=== PATIENT | female | born 1950 | race Hispanic/Latino ===

== ENCOUNTER 2017-12-03 14:51 | Emergency (ER) | payer OTHER ==
[2017-12-03 15:26] LABS: Absolute Lymphocytes (CBC) 2.9 K/uL (0.7-4.9); Absolute Monocytes 0.6 K/uL (0.1-1.3); Absolute Neutrophil 6.6 K/uL (1.8-8.0); Basophils % 0.7 % (0-1.3); Hematocrit 38.9 % (36.0-45.0); Lymphocytes % 28.1 % (15.3-44.8); MCH 28.6 pg (27.0-35.0); MPV 10.7 fL (7.6-11.3); Monocytes % 6.2 % (3.3-12.3); RBC Red Blood Cell Count 4.52 M/uL (3.86-4.86)
[2017-12-03 15:36] LABS: Protime INR 0.98
--- NOTE | 2017-12-03 15:37 | RAD REPORT ---
EXAM DESCRIPTION: Alec Single View12/03/2017 3:32 pm CLINICAL HISTORY: Chest pain COMPARISON: February 2017 FINDINGS: The lungs appear clear of acute infiltrate. The heart is normal size IMPRESSION: No acute abnormalities displayed
[2017-12-03 15:53] LABS: Albumin 4.2 g/dL (3.4-5.0); Bilirubin Direct 0.1 mg/dL (0-0.2); Bilirubin Total 0.5 mg/dL (0.2-1.0); Magnesium 1.5 mg/dL (1.8-2.4); Potassium 3.9 mmol/L (3.5-5.1); Protein, Total 7.9 g/dL (6.4-8.2); Thyroid Stimulating Hormone 1.56 uIU/mL (0.36-3.74)
[2017-12-03] MEDS ORDERED: FENTANYL CITR 100 MCG/2 ML ONE (16:12)
[2017-12-03] MEDS ORDERED: Magnesium Sulfate 1gm IVPB 1 GM/50 ML BAG IV ONE (16:15)
[2017-12-03] MEDS ORDERED: NA CHLORIDE 0.9% 250 ML ONE (16:18)
--- NOTE | 2017-12-03 16:18 | RAD REPORT ---
EXAM DESCRIPTION: CT - Chest For Pe Angio - 12/03/2017 4:08 pm CLINICAL HISTORY: Chest pain. dimerpos ;SOB;Chest pain COMPARISON: THORAX W CONTRAST dated 01/26/2015; Chest Single View dated 12/03/2017; CTANGIO CHEST dated 04/14/2013 TECHNIQUE: CT angiogram of the pulmonary arteries was performed with MIP. All CT scans are performed using dose optimization technique as appropriate and may include automated exposure control or mA/KV adjustment according to patient size. FINDINGS: No evidence of pulmonary thromboembolism. Significant atherosclerotic narrowing of the origin of the left subclavian artery noted. No acute aortic finding demonstrated. The lungs are clear. No significant pericardial or pleural fluid. No concerning bony finding. The right lobe of the thyroid appears mildly prominent with a calcified n odule seen. IMPRESSION: No evidence of pulmonary thromboembolism. No acute lung findings.
--- NOTE | 2017-12-03 17:12 | ER ---
Nurse's Notes [facility] Name: Yadira Land Age: 67 yrs Sex: Female : 1950 Arrival Date: 12/03/2017 Time: 14:54 Bed 26 Private MD: Marco Alicia E Diagnosis: Chest pain, unspecified Presentation: 12/03 15:01 Presenting complaint: Patient states: chest pain radiating to the left arm which mg2 started yesterday but increased in intensity today. denies Shortness of breath but she is having dry cough since yesterday night. Transition of care: patient was not received from another setting of care. Onset of symptoms was December 02, 2017. Risk Assessment: Do you want to hurt yourself or someone else? Patient reports no desire to harm self or others. Initial Sepsis Screen: Does the patient meet any 2 criteria? No. Patient's initial sepsis screen is negative. Does the patient have a suspected source of infection? No. Patient's initial sepsis screen is negative. Care prior to arrival: None. 15:01 Method Of Arrival: Wheelchair mg2 15:01 Acuity: KARSTEN 2 mg2 Historical: - Allergies: 15:05 No Known Allergies; mg2 - Home Meds: 15:05 metformin 1,000 mg Oral tab 1 tab 2 times per day [Active]; mg2 - PMHx: 15:05 Diabetes - NIDDM; mg2 - Immunization history:: Flu vaccine is up to date. - Social history:: Smoking status: Patient/guardian denies using tobacco, Patient/guardian denies using alcohol, street drugs, IV drugs. - Ebola Screening: : No symptoms or risks identified at this time. Screenin:09 Abuse screen: Denies threats or abuse. Denies injuries from another. Nutritional mg2 screening: No deficits noted. Tuberculosis screening: No symptoms or risk factors identified. Fall Risk IV access (20 points). Assessment: 15:07 General: Appears uncomfortable, Behavior is calm, cooperative. Pain: Complains of pain mg2 in chest Pain radiates to left arm Pain currently is 7 out of 10 on a pain scale. Quality of pain is described as aching, Pain began gradually, 1 day ago. Is intermittent, Alleviated by rest. Neuro: Level of Consciousness is awake, alert, obeys commands, Oriented to person, place, time, situation. Cardiovascular: Capillary refill < 3 seconds Patient's skin is warm and dry. Chest pain is described as Pain is 7 out of 10 on a pain scale. Respiratory: Reports cough that is non-productive, dry, Airway is patent Respiratory effort is even, unlabored, Respiratory pattern is regular, symmetrical. GI: No signs and/or symptoms were reported involving the gastrointestinal system. : No signs and/or symptoms were reported regarding the genitourinary system. EENT: No signs and/or symptoms were reported regarding the EENT system. Derm: Skin is intact, Skin is pink, warm \T\ dry. normal. Musculoskeletal: No signs and/or symptoms reported regarding the musculoskeletal system. 15:38 General: Dr. Loza notified of critical lab value. DDimer 833. ss Vital Signs: 15:06 BP 173 / 81; Pulse 115; Resp 18; Temp 98.5; Pulse Ox 99% ; Weight 65.32 kg; Height 5 mg2 ft. 4 in. (162.56 cm); Pain 7/10; 16:26 BP 165 / 78; Pulse 105; Resp 18; Pulse Ox 98% ; Pain 5/10; mg2 15:06 Body Mass Index 24.72 (65.32 kg, 162.56 cm) mg2 ED Course: 14:54 Patient arrived in ED. mr 14:54 Marco Alicia MD is Private Physician. mr 15:00 Inserted saline lock: 20 gauge in right antecubital area, using aseptic technique. kr2 Blood collected. 15:01 Wander Morejon, RN is Primary Nurse. mg2 15:04 Triage completed. mg2 15:06 Lucas Loza MD is Attending Physician. gs 15:07 Arm band placed on. mg2 15:16 EKG done, by body technician. reviewed by Lucas Loza MD. sm3 15:31 X-ray completed. Portable x-ray completed in exam room. Patient tolerated procedure jb2 well. 15:33 XRAY Chest (1 view) In Process Unspecified. EDMS 15:49 Radiology exam delayed due to lab results not completed at this time. (BUN/Creatinine). vm2 16:00 Patient has correct armband on for positive identification. 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 Pulse mg2 ox on. NIBP on. 16:08 CT Chest For PE Angio In Process Unspecified. EDMS 17:46 No provider procedures requiring assistance completed. IV discontinued, intact, mg2 bleeding controlled, No redness/swelling at site. Pressure dressing applied. Patient maintains SpO2 saturation greater than 95% on room air. Administered Medications: 16:25 Drug: Magnesium Sulfate 1 grams Route: IVPB; Infused Over: 1 hrs; Site: right mg2 antecubital; 16:25 Drug: fentaNYL (PF) 25 mcg Route: IVP; Site: right antecubital; mg2 17:45 Follow up: Response: No adverse reaction; Pain is decreased mg2 Outcome: 17:12 Discharge ordered by . 17:46 Discharged to home ambulatory, with family. mg2 17:46 Condition: good 17:46 Discharge instructions given to patient, family, Instructed on discharge instructions, follow up and referral plans. medication usage, Demonstrated understanding of instructions, follow-up care, medications, Prescriptions given X 1. 17:47 Patient left the ED. mg2 Signatures: Dispatcher [employer] EDMS RebolledoTraci mr BurtRobert jb2 Amie Arthur RN RN ss Guerline Burkett2 Lucas Loza MD MD Odilia Burr RN RN kr2 Wander Morejon RN RN mg2 Abigail Pino sm3 Corrections: (The following items were deleted from the chart) 15:10 15:06 BP 173 / 81; Resp 18bpm; Temp 98.5F; 65.32 kg; Height 5 ft. 4 in.; BMI: 24.7; mg2 Pain 7/10; mg2
--- NOTE | 2017-12-03 17:12 | EDPHYS ---
Physician Documentation [facility] Name: Yadira Land Age: 67 yrs Sex: Female : 1950 Arrival Date: 12/03/2017 Time: 14:54 Bed 26 Private MD: Marco Alicia E ED Physician Lucas Loza HPI: 12/03 18:27 This 67 yrs old Female presents to ER via Wheelchair with complaints of Chest gs Pain. 18:27 The patient or guardian reports chest pain that is located primarily in the anterior gs chest wall. Onset: yesterday. The pain does not radiate. Associated signs and symptoms: Pertinent positives: shortness of breath. The chest pain is described as sharp. Duration: The patient or guardian reports multiple episodes, that are intermittent, that wax and wane, with no pattern. Modifying factors: the symptoms are aggravated by deep breath. Severity of pain: At its worst the pain was moderate in the emergency department the pain has improved mildly. The patient has experienced similar episodes in the past, a few times. Historical: - Allergies: 15:05 No Known Allergies; mg2 - Home Meds: 15:05 metformin 1,000 mg Oral tab 1 tab 2 times per day [Active]; mg2 - PMHx: 15:05 Diabetes - NIDDM; mg2 - Immunization history:: Flu vaccine is up to date. - Social history:: Smoking status: Patient/guardian denies using tobacco, Patient/guardian denies using alcohol, street drugs, IV drugs. - Ebola Screening: : No symptoms or risks identified at this time. ROS: 18:27 All other systems are negative. gs Exam: 18:27 Head/Face: Normocephalic, atraumatic. Eyes: Pupils equal round and reactive to light, gs extra-ocular motions intact. Lids and lashes normal. Conjunctiva and sclera are non-icteric and not injected. Cornea within normal limits. Periorbital areas with no swelling, redness, or edema. ENT: Nares patent. No nasal discharge, no septal abnormalities noted. Tympanic membranes are normal and external auditory canals are clear. Oropharynx with no redness, swelling, or masses, exudates, or evidence of obstruction, uvula midline. Mucous membranes moist. Neck: Trachea midline, no thyromegaly or masses palpated, and no cervical lymphadenopathy. Supple, full range of motion without nuchal rigidity, or vertebral point tenderness. No Meningismus. 18:27 Cardiovascular: Regular rate and rhythm with a normal S1 and S2. No gallops, murmurs, or rubs. Normal PMI, no JVD. No pulse deficits. Respiratory: Lungs have equal breath sounds bilaterally, clear to auscultation and percussion. No rales, rhonchi or wheezes noted. No increased work of breathing, no retractions or nasal flaring. Abdomen/GI: Soft, non-tender, with normal bowel sounds. No distension or tympany. No guarding or rebound. No evidence of tenderness throughout. Back: No spinal tenderness. No costovertebral tenderness. Full range of motion. Skin: Warm, dry with normal turgor. Normal color with no rashes, no lesions, and no evidence of cellulitis. MS/ Extremity: Pulses equal, no cyanosis. Neurovascular intact. Full, normal range of motion. Neuro: Awake and alert, GCS 15, oriented to person, place, time, and situation. Cranial nerves II-XII grossly intact. Motor strength 5/5 in all extremities. Sensory grossly intact. Cerebellar exam normal. Normal gait. 18:27 Constitutional: The patient appears alert, awake. 18:27 Chest/axilla: Palpation: tenderness, that is moderate, of the left lateral anterior chest, that partially reproduces the patient's complaints. 18:27 ECG was reviewed by the Attending Physician. Vital Signs: 15:06 BP 173 / 81; Pulse 115; Resp 18; Temp 98.5; Pulse Ox 99% ; Weight 65.32 kg; Height 5 mg2 ft. 4 in. (162.56 cm); Pain 7/10; 16:26 BP 165 / 78; Pulse 105; Resp 18; Pulse Ox 98% ; Pain 5/10; mg2 15:06 Body Mass Index 24.72 (65.32 kg, 162.56 cm) mg2 MDM: 15:13 Patient medically screened. 18:27 Differential diagnosis: abnormal EKG, acute myocardial infarction, pneumothorax, gs thoracic aortic disection. Data reviewed: vital signs, nurses notes. Response to treatment: the patient's symptoms have markedly improved after treatment, the patient's symptoms have resolved after treatment, the patient's pain is gone, and as a result, I will discharge patient. 12/03 15:14 Order name: Basic Metabolic Panel; Complete Time: 15:53 gs 12/03 15:14 Order name: CBC with Diff; Complete Time: 15:53 12/03 15:14 Order name: LFT's; Complete Time: 15:53 12/03 15:14 Order name: Magnesium; Complete Time: 15:53 gs 12/03 15:14 Order name: NT PRO-BNP; Complete Time: 15:53 12/03 15:14 Order name: PT-INR; Complete Time: 15:53 12/03 15:14 Order name: Troponin (emerg Dept Use Only); Complete Time: 15:53 gs 12/03 15:14 Order name: XRAY Chest (1 view); Complete Time: 15:53 12/03 15:14 Order name: EKG; Complete Time: 15:14 12/03 15:14 Order name: TSH; Complete Time: 15:53 gs 12/03 15:14 Order name: D-Dimer; Complete Time: 15:53 12/03 15:39 Order name: CT Chest For PE Angio; Complete Time: 16:26 12/03 15:14 Order name: Cardiac monitoring; Complete Time: 15:17 12/03 15:14 Order name: EKG - Nurse/Tech; Complete Time: 15:17 12/03 15:14 Order name: IV Saline Lock; Complete Time: 15:17 12/03 15:14 Order name: Labs collected and sent; Complete Time: 15:17 12/03 15:14 Order name: O2 Per Protocol; Complete Time: 15:17 12/03 15:14 Order name: O2 Sat Monitoring; Complete Time: 15:17 gs EC:27 Rate is 119 beats/min. Rhythm is regular. MA interval is normal. QRS interval is gs normal. T waves are Flattened. Clinical impression: NSR w/ Non-specific ST/T Changes. Interpreted by me. Administered Medications: 16:25 Drug: Magnesium Sulfate 1 grams Route: IVPB; Infused Over: 1 hrs; Site: right mg2 antecubital; 16:25 Drug: fentaNYL (PF) 25 mcg Route: IVP; Site: right antecubital; mg2 17:45 Follow up: Response: No adverse reaction; Pain is decreased mg2 Disposition: 12/03/17 17:12 Discharged to Home. Impression: Chest pain, unspecified. - Condition is Stable. - Discharge Instructions: Nonspecific Chest Pain. - Prescriptions for Ativan 0.5 mg Oral Tablet - take 1 tablet by ORAL route every 12 hours As needed; 10 tablet. - Medication Reconciliation Form, Thank You Letter, Antibiotic Education, Prescription Opioid Use form. - Follow up: Private Physician; When: 2 - 3 days; Reason: Re-evaluation by your physician. Signatures: Dispatcher [employer] [facility] Lucas Loza MD MD Wander Morejon RN RN mg2 Corrections: (The following items were deleted from the chart) 17:47 17:12 12/03/2017 17:12 Discharged to Home. Impression: Chest pain, unspecified. mg2 Condition is Stable. Forms are Medication Reconciliation Form, Thank You Letter, Antibiotic Education, Prescription Opioid Use. Follow up: Private Physician; When: 2 - 3 days; Reason: Re-evaluation by your physician. gs
[2017-12-03 17:51] VITALS: TEMP 98.5
[2017-12-03 17:52] VITALS: BP 165/78; O2SAT 98
--- NOTE | 2017-12-03 21:34 | EKG ---
Test Date: 2017-12-03 Test Time: 15:01:39 Topper Press Operator Automatic: PERRY MEASUREMENT RESULTS: Intervals: Rate: 119 MD: 140 QRSD: 76 QT: 324 QTc: 455 [place]: P: 57 MD: 140 QRS: 43 T: 71 INTERPRETIVE STATEMENTS: Sinus tachycardia Nonspecific ST abnormality Abnormal ECG Compared to ECG 03/26/2017 14:27:23 ST (T wave) deviation now present Sinus rhythm no longer present Electronically Signed On 12-03-17 21:33:48 CDT by Chad Thompson
== END 2017-12-03 17:47 | disposition home or self-care (01) ==
LOC: ER 14:51
DX: R07.9 Chest pain, unspecified (principal); E11.9 Type 2 diabetes mellitus without complications
CPT/HCPCS: 36415; 71045; 71275; 80048; 80076; 83735; 83880; 84443; 84484; 85025; 85379; 85610; 93005; J3010; J3475; Q9967; 96374; 96375; 99285

== ENCOUNTER 2018-02-19 09:38 | Emergency (ER) | payer OTHER ==
--- NOTE | 2018-02-19 10:18 | RAD REPORT ---
EXAM DESCRIPTION: RAD - Hip Left 2 View - 02/19/2018 10:07 am CLINICAL HISTORY: Left hip pain status post fall FINDINGS: No fracture or dislocation is seen. Bones are osteoporotic If the patient continues have symptoms to suggest an occult fracture MRI would be recommended
--- NOTE | 2018-02-19 10:19 | RAD REPORT ---
EXAM DESCRIPTION: RAD - Knee Left 3 View - 02/19/2018 10:07 am CLINICAL HISTORY: Left knee pain status post fall FINDINGS: No fracture or dislocation is seen. Left knee prosthesis is in good position without evidence of loosening. The bones are osteoporotic
--- NOTE | 2018-02-19 10:34 | ER ---
Nurse's Notes [facility] Name: Yadira Land Age: 67 yrs Sex: Female : 1950 Arrival Date: 02/19/2018 Time: 09:39 Bed 19 Private MD: Diagnosis: Contusion of left knee;Pain in left hip Presentation: 02/19 09:39 Presenting complaint: EMS states: pt was outside slipped on puddle and fell down landed tw2 on both knees, c/o LEFT knee pain which is swollen, she did have knee surgery 3 years ago on the left knee and recently has been having problems so she does have an ortho appt tomorrow, vs stable, Hx: DM, on metformin took it this morning, 171 mg/dL blood sugar. Transition of care: patient was not received from another setting of care. Onset of symptoms was February 19, 2018. Risk Assessment: Do you want to hurt yourself or someone else? Patient reports no desire to harm self or others. Initial Sepsis Screen: Does the patient meet any 2 criteria? No. Patient's initial sepsis screen is negative. Does the patient have a suspected source of infection? No. Patient's initial sepsis screen is negative. Care prior to arrival: None. 09:39 Method Of Arrival: EMS: [facility] tw2 09:42 Acuity: KARSTEN 3 tw2 Historical: - Allergies: 09:44 No Known Allergies; tw2 - Home Meds: 09:44 metformin 1,000 mg Oral tab 1 tab 2 times per day [Active]; tw2 - PMHx: 09:44 Diabetes - NIDDM; tw2 - PSHx: 09:44 LEFT knee surgery; tw2 - Immunization history:: Adult Immunizations. - Social history:: Smoking status: . - Ebola Screening: : Patient denies travel to an Ebola-affected area in the 21 days before illness onset. Screenin:43 Abuse screen: Denies threats or abuse. Nutritional screening: No deficits noted. tw2 Tuberculosis screening: No symptoms or risk factors identified. Fall Risk None identified. Assessment: 10:10 General: Appears in no apparent distress. uncomfortable, Behavior is calm, cooperative, aj1 appropriate for age. Pain: Complains of pain in left knee. Neuro: Level of Consciousness is awake, alert, obeys commands. Cardiovascular: Patient's skin is warm and dry. Respiratory: Airway is patent Respiratory effort is even, unlabored, Respiratory pattern is regular, symmetrical. GI: No signs and/or symptoms were reported involving the gastrointestinal system. : No signs and/or symptoms were reported regarding the genitourinary system. EENT: No signs and/or symptoms were reported regarding the EENT system. Derm: Skin is pink, warm \T\ dry. normal. Musculoskeletal: Range of motion: limited in left knee Swelling present in left knee. 10:35 Reassessment: discharge pending getting a walker from material per orders from P. aj1 BRENDAN Null. 11:10 Reassessment: Patient appears in no apparent distress at this time. No changes from aj1 previously documented assessment. Patient and/or family updated on plan of care and expected duration. Pain level reassessed. Patient is alert, oriented x 3, equal unlabored respirations, skin warm/dry/pink. Vital Signs: 09:42 BP 119 / 86; Pulse 87; Resp 17; Pulse Ox 97% on R/A; Pain 8/10; tw2 10:30 BP 153 / 89; Pulse 79; Resp 18; Pulse Ox 97% on R/A; aj1 11:30 BP 157 / 66; Pulse 75; Resp 18; Pulse Ox 97% on R/A; aj1 ED Course: 09:39 Patient arrived in ED. tw2 09:40 Osorio Null NP is PHCP. pm1 09:40 Ramin Easton MD is Attending Physician. pm1 09:42 Triage completed. tw2 09:43 Arm band placed on. tw2 09:43 Bed in low position. Call light in reach. Side rails up X2. Pulse ox on. NIBP on. tw2 09:54 Report given to MAIKEL Hodge. tw2 10:01 X-ray completed. Portable x-ray completed in exam room. Patient tolerated procedure sw well. 10:02 Knee Left 3 View In Process Unspecified. EDMS 10:02 Hip Left 2 View In Process Unspecified. EDMS 10:25 Cathryn Edwards RN is Primary Nurse. aj1 10:33 Dariel Oconnor MD is Referral Physician. pm1 10:35 No provider procedures requiring assistance completed. Patient did not have IV access aj1 during this emergency room visit. Scout wrap to left knee. Administered Medications: 10:34 Drug: [place] 5 mg-325 mg 1 tabs Route: PO; aj1 11:41 Follow up: Response: No adverse reaction aj1 Outcome: 10:33 Discharge ordered by . pm1 11:40 Discharged to home with walker aj1 11:40 Condition: good 11:40 Discharge instructions given to patient, Instructed on discharge instructions, follow up and referral plans. no drinking with medication, no driving heavy equipment, medication usage, Demonstrated understanding of instructions, follow-up care, medications, Prescriptions given X 1. 11:41 Patient left the ED. aj1 Signatures: Dispatcher [employer] EDMS Cathryn Edwards RN RN aj1 Ramonita Lee Patrick, NP ENVIRONMENTAL PLANNING ENGINEER pm1 Lulú Rojas RN RN tw2 Corrections: (The following items were deleted from the chart) 09:42 09:39 Acuity: KARSTEN 4 tw2 tw2
--- NOTE | 2018-02-19 10:34 | EDPHYS ---
Physician Documentation [facility] Name: Yadira Land Age: 67 yrs Sex: Female : 1950 Arrival Date: 02/19/2018 Time: 09:39 Bed 19 Private MD: ED Physician Ramin Easton HPI: 02/19 09:40 This 67 yrs old Female presents to ER via EMS with complaints of Left Knee pm1 Pain. 09:40 The patient presents with pain, that is acute, swelling. The complaints affect the left pm1 knee. Context: The problem was sustained at home, resulted from the patient falling, Problem is a result from a previous injury: Patient with prior left knee replacement about 3 years ago. Onset: The symptoms/episode began/occurred just prior to arrival. Modifying factors: The symptoms are alleviated by nothing. the symptoms are aggravated by weight bearing. Associated signs and symptoms: Pertinent negatives calf tenderness, numbness, tingling. Treatment prior to arrival includes: no previous treatment. Patient taking out the garbage and stepped in a puddle of water with mud. Slipped and landed on both her knee. Right knee without any pain, but left knee is swollen and painful. No head injury, headache, neck pain, or LOC. Historical: - Allergies: 09:44 No Known Allergies; tw2 - Home Meds: 09:44 metformin 1,000 mg Oral tab 1 tab 2 times per day [Active]; tw2 - PMHx: 09:44 Diabetes - NIDDM; tw2 - PSHx: 09:44 LEFT knee surgery; tw2 - Immunization history:: Adult Immunizations. - Social history:: Smoking status: . - Ebola Screening: : Patient denies travel to an Ebola-affected area in the 21 days before illness onset. ROS: 09:40 Constitutional: Negative for fever, chills, and weight loss, Eyes: Negative for injury, pm1 pain, redness, and discharge, ENT: Negative for injury, pain, and discharge, Neck: Negative for injury, pain, and swelling, Cardiovascular: Negative for chest pain, palpitations, and edema, Respiratory: Negative for shortness of breath, cough, wheezing, and pleuritic chest pain, Abdomen/GI: Negative for abdominal pain, nausea, vomiting, diarrhea, and constipation, Back: Negative for injury and pain, : Negative for injury, bleeding, discharge, and swelling. 09:40 Skin: Negative for injury, rash, and discoloration, Neuro: Negative for headache, weakness, numbness, tingling, and seizure. 09:40 MS/extremity: Positive for pain, of the left hip and left knee. Exam: 09:40 Constitutional: This is a well developed, well nourished patient who is awake, alert, pm1 and in no acute distress. Head/Face: Normocephalic, atraumatic. Eyes: Pupils equal round and reactive to light, extra-ocular motions intact. Lids and lashes normal. Conjunctiva and sclera are non-icteric and not injected. Cornea within normal limits. Periorbital areas with no swelling, redness, or edema. ENT: Nares patent. No nasal discharge, no septal abnormalities noted. Tympanic membranes are normal and external auditory canals are clear. Oropharynx with no redness, swelling, or masses, exudates, or evidence of obstruction, uvula midline. Mucous membranes moist. Neck: Trachea midline, no thyromegaly or masses palpated, and no cervical lymphadenopathy. Supple, full range of motion without nuchal rigidity, or vertebral point tenderness. No Meningismus. Chest/axilla: Normal chest wall appearance and motion. Nontender with no deformity. No lesions are appreciated. Cardiovascular: Regular rate and rhythm with a normal S1 and S2. No gallops, murmurs, or rubs. No pulse deficits. Respiratory: Lungs have equal breath sounds bilaterally, clear to auscultation and percussion. No rales, rhonchi or wheezes noted. No increased work of breathing, no retractions or nasal flaring. Abdomen/GI: Soft, non-tender, with normal bowel sounds. No distension or tympany. No guarding or rebound. No evidence of tenderness throughout. Back: No spinal tenderness. No costovertebral tenderness. Full range of motion. Skin: Warm, dry with normal turgor. Normal color with no rashes, no lesions, and no evidence of cellulitis. 09:40 Musculoskeletal/extremity: Extremities: grossly normal except: noted in the left knee: swelling, tenderness, noted in the left hip: tenderness, no evidence of deformity, Circulation is intact in all extremities. Sensation intact. 09:40 Neuro: Orientation: is normal, Mentation: is normal, Motor: moves all fours, Sensation: is normal, no obvious gross deficits. Vital Signs: 09:42 BP 119 / 86; Pulse 87; Resp 17; Pulse Ox 97% on R/A; Pain 8/10; tw2 10:30 BP 153 / 89; Pulse 79; Resp 18; Pulse Ox 97% on R/A; aj1 11:30 BP 157 / 66; Pulse 75; Resp 18; Pulse Ox 97% on R/A; aj1 MDM: 09:45 Patient medically screened. pm1 10:30 ED course: Due to fall risk injury with crutches and knee immobilizer due to age, will pm1 send patient home with walker and scout wrap. 10:31 Data reviewed: vital signs. Data interpreted: Pulse oximetry: on room air is 97 %. pm1 Interpretation: normal. Counseling: I had a detailed discussion with the patient and/or guardian regarding: the historical points, exam findings, and any diagnostic results supporting the discharge/admit diagnosis, radiology results, the need for outpatient follow up, a orthopedic surgeon, to return to the emergency department if symptoms worsen or persist or if there are any questions or concerns that arise at home. 02/19 10:01 Order name: Knee Left 3 View; Complete Time: 10:21 EDMS 02/19 10:01 Order name: Hip Left 2 View; Complete Time: 10:21 EDMS 02/19 10:24 Order name: Ice pack; Complete Time: 10:34 pm1 02/19 10:24 Order name: Scout wrap-joint; Complete Time: 10:34 pm1 Administered Medications: 10:34 Drug: Alma 5 mg-325 mg 1 tabs Route: PO; aj1 11:41 Follow up: Response: No adverse reaction aj1 Disposition: 17:08 Co-signature as Attending Physician, Ramin Easton MD. rn Disposition: 02/19/18 10:33 Discharged to Home. Impression: Contusion of left knee, Pain in left hip. - Condition is Stable. - Discharge Instructions: Contusion, Knee Pain, Hip Pain. - Prescriptions for Tylenol- Codeine #3 300-30 mg Oral Tablet - take 1 tablet by ORAL route every 6 hours As needed; 15 tablet. - Medication Reconciliation Form, Thank You Letter, Prescription Opioid Use form. - Follow up: Emergency Department; When: As needed; Reason: Worsening of condition. Follow up: Dariel Oconnor MD; When: 2 - 3 days; Reason: Recheck today's complaints, Continuance of care, Re-evaluation by your physician. - Problem is new. - Symptoms have improved. Signatures: Dispatcher [employer] EDMT Cathryn Edwards, RN RN aj1 Ramin Easton MD MD rn Marinas, Patrick, APPLICATION DEVELOPMENT SPECIALIST APPLICATION DEVELOPMENT SPECIALIST pm1 Lulú Rojas RN RN tw2 Corrections: (The following items were deleted from the chart) 10:01 09:41 Knee Right 3 View+RAD.RAD.BRZ ordered. EDMT EDMS 10:01 09:41 Hip Right 2 View+RAD.RAD.BRZ ordered. [facility] EDMT 10:34 10:33 02/19/2018 10:33 Discharged to Home. Impression: Contusion of left knee. pm1 Condition is Stable. Forms are Medication Reconciliation Form, Thank You Letter, Antibiotic Education, Prescription Opioid Use. Follow up: Emergency Department; When: As needed; Reason: Worsening of condition. Follow up: Dariel Oconnor; When: 2 - 3 days; Reason: Recheck today's complaints, Continuance of care, Re-evaluation by your physician. Problem is new. Symptoms have improved. pm1 11:41 10:34 02/19/2018 10:33 Discharged to Home. Impression: Contusion of left knee; Pain in aj1 left hip. Condition is Stable. Discharge Instructions: Contusion, Knee Pain, Hip Pain. Forms are Medication Reconciliation Form, Thank You Letter, Antibiotic Education, Prescription Opioid Use. Follow up: Emergency Department; When: As needed; Reason: Worsening of condition. Follow up: Dariel Oconnor; When: 2 - 3 days; Reason: Recheck today's complaints, Continuance of care, Re-evaluation by your physician. Problem is new. Symptoms have improved. pm1
[2018-02-19] MEDS ORDERED: HYDROCODONE/APAP 5/325 MG TAB ONE (10:36)
[2018-02-19 11:50] VITALS: O2SAT 97
[2018-02-19 11:52] VITALS: BP 157/66
== END 2018-02-19 11:41 | disposition home or self-care (01) ==
LOC: ER 09:38
DX: S80.02XA Contusion of left knee, initial encounter (principal); M25.552 Pain in left hip; W01.0XXA Fall on same level from slipping, tripping and stumbling without subsequent striking against object, initial encounter; Y93.89 Activity, other specified; Y92.009 Unspecified place in unspecified non-institutional (private) residence as the place of occurrence of the external cause; E11.9 Type 2 diabetes mellitus without complications
CPT/HCPCS: 99284

== ENCOUNTER 2018-10-11 13:46 | Emergency (ER) | payer OTHER ==
--- OUTSIDE RECORDS SUMMARY | 2018-10-11 13:48 | XMS REPORT ---
:1950 [facility] Address [address] [place] [address] Dr. Sharma [address] [place] [id number] Care Team Providers Name Role Phone Unavailable Unavailable Unavailable Problems This patient has no known problems. Allergies, Adverse Reactions, Alerts This patient has no known allergies or adverse reactions. Medications This patient has no known medications.
--- NOTE | 2018-10-11 14:25 | EDPHYS ---
Physician Documentation [facility] Name: Yadira Land Age: 68 yrs Sex: Female : 1950 Arrival Date: 10/11/2018 Time: 13:49 Bed 12 Private MD: ED Physician Lucas Loza HPI: 10/11 14:20 This 68 yrs old Female presents to ER via Ambulatory with complaints of Ear jr8 Pain. 14:20 The patient presents with hearing loss, partial, pain, mild, tinnitus. The complaints jr8 affect the left ear. Onset: The symptoms/episode began/occurred gradually, 3 day(s) ago. Modifying factors: The symptoms are alleviated by nothing, the symptoms are aggravated by nothing. Associated signs and symptoms: The patient has no apparent associated signs or symptoms. Severity of symptoms: At their worst the symptoms were mild in the emergency department the symptoms are unchanged. The patient has not experienced similar symptoms in the past. The patient has not recently seen a physician. Historical: - Allergies: 14:11 No Known Allergies; sg - PMHx: 14:11 None; sg - PSHx: 14:11 LEFT knee surgery; sg - Immunization history:: Adult Immunizations up to date. - Social history:: Smoking status: Patient/guardian denies using tobacco. - Ebola Screening: : No symptoms or risks identified at this time. ROS: 14:20 Eyes: Negative for injury, pain, redness, and discharge, Neck: Negative for injury, jr8 pain, and swelling, Cardiovascular: Negative for chest pain, palpitations, and edema, Respiratory: Negative for shortness of breath, cough, wheezing, and pleuritic chest pain, Abdomen/GI: Negative for abdominal pain, nausea, vomiting, diarrhea, and constipation, Back: Negative for injury and pain, MS/Extremity: Negative for injury and deformity, Skin: Negative for injury, rash, and discoloration, Neuro: Negative for headache, weakness, numbness, tingling, and seizure. 14:20 ENT: Positive for ear pain, tinnitus. Exam: 14:20 Eyes: Pupils equal round and reactive to light, extra-ocular motions intact. Lids and jr8 lashes normal. Conjunctiva and sclera are non-icteric and not injected. Cornea within normal limits. Periorbital areas with no swelling, redness, or edema. ENT: Nares patent. No nasal discharge, no septal abnormalities noted. Tympanic membranes are normal and external auditory canals are clear. Non affected ear closed and sound was tested on impaired ear revealing that patient can hear but not as well as the unaffected ear. Oropharynx with no redness, swelling, or masses, exudates, or evidence of obstruction, uvula midline. Mucous membranes moist. Neck: Trachea midline, no thyromegaly or masses palpated, and no cervical lymphadenopathy. Supple, full range of motion without nuchal rigidity, or vertebral point tenderness. No Meningismus. Cardiovascular: Regular rate and rhythm with a normal S1 and S2. No gallops, murmurs, or rubs. Normal PMI, no JVD. No pulse deficits. Respiratory: Lungs have equal breath sounds bilaterally, clear to auscultation and percussion. No rales, rhonchi or wheezes noted. No increased work of breathing, no retractions or nasal flaring. Abdomen/GI: Soft, non-tender, with normal bowel sounds. No distension or tympany. No guarding or rebound. No evidence of tenderness throughout. Back: No spinal tenderness. No costovertebral tenderness. Full range of motion. Skin: Warm, dry with normal turgor. Normal color with no rashes, no lesions, and no evidence of cellulitis. MS/ Extremity: Pulses equal, no cyanosis. Neurovascular intact. Full, normal range of motion. Neuro: Awake and alert, GCS 15, oriented to person, place, time, and situation. Cranial nerves II-XII grossly intact. Motor strength 5/5 in all extremities. Sensory grossly intact. Cerebellar exam normal. Normal gait. Vital Signs: 13:59 BP 101 / 69; Pulse 100; Resp 19; Temp 97.2; Pulse Ox 100% on R/A; Pain 6/10; sg MDM: 14:03 Patient medically screened. jr8 14:20 Data reviewed: vital signs, nurses notes, and as a result, I will discharge patient. jr8 Data interpreted: Pulse oximetry: on room air is 100 %. Interpretation: normal. Counseling: I had a detailed discussion with the patient and/or guardian regarding: the historical points, exam findings, and any diagnostic results supporting the discharge/admit diagnosis, the need for outpatient follow up, an ENT specialist, to return to the emergency department if symptoms worsen or persist or if there are any questions or concerns that arise at home. Administered Medications: No medications were administered Disposition: 15:39 Co-signature as Attending Physician, Lucas Loza MD. Disposition: 10/11/18 14:24 Discharged to Home. Impression: Otalgia, left ear, Conductive and sensorineural hearing loss. - Condition is Stable. - Discharge Instructions: Earache, Adult. - Prescriptions for Medrol (Doyle) 4 mg Oral Tablets, Dose Pack - take 1 tablet by ORAL route as directed - follow package instructions; 1 packet. - Medication Reconciliation Form, Thank You Letter, Antibiotic Education, Prescription Opioid Use form. - Follow up: Keara Aggarwal MD; When: 2 - 3 days; Reason: Recheck today's complaints, Continuance of care, Re-evaluation by your physician. - Problem is new. - Symptoms have improved. Signatures: Shashank Mahajan RN RN sg Mejia Brewer PA PA jr8 Sonali Steven RN RN Lucas Loza MD MD Corrections: (The following items were deleted from the chart) 14:27 14:24 10/11/2018 14:24 Discharged to Home. Impression: Otalgia, left ear; Conductive hb and sensorineural hearing loss. Condition is Stable. Forms are Medication Reconciliation Form, Thank You Letter, Antibiotic Education, Prescription Opioid Use. Follow up: Keara Aggarwal; When: 2 - 3 days; Reason: Recheck today's complaints, Continuance of care, Re-evaluation by your physician. Problem is new. Symptoms have improved. jr8
--- NOTE | 2018-10-11 14:25 | ER ---
Nurse's Notes [facility] Name: Yadira Land Age: 68 yrs Sex: Female : 1950 Arrival Date: 10/11/2018 Time: 13:49 Bed 12 Private MD: Diagnosis: Otalgia, left ear;Conductive and sensorineural hearing loss Presentation: 10/11 13:56 Presenting complaint: Patient states: Left sided ear pain, hard to hear now, reports sg having been seen by the PCP and given a flush to help clear the wax but now there is pain in the jaw. Transition of care: patient was not received from another setting of care. Onset of symptoms was October 11, 2018. Risk Assessment: Do you want to hurt yourself or someone else? Patient reports no desire to harm self or others. Initial Sepsis Screen: Does the patient meet any 2 criteria? No. Patient's initial sepsis screen is negative. Initial Sepsis Screen: Does the patient have a suspected source of infection? No. Patient's initial sepsis screen is negative. Care prior to arrival: None. 13:56 Method Of Arrival: Ambulatory sg 13:56 Acuity: KARSTEN 4 sg Historical: - Allergies: 14:11 No Known Allergies; sg - PMHx: 14:11 None; sg - PSHx: 14:11 LEFT knee surgery; sg - Immunization history:: Adult Immunizations up to date. - Social history:: Smoking status: Patient/guardian denies using tobacco. - Ebola Screening: : No symptoms or risks identified at this time. Screenin:09 Abuse screen: Denies threats or abuse. Denies injuries from another. Nutritional sg screening: No deficits noted. Tuberculosis screening: No symptoms or risk factors identified. Never had TB. Fall Risk None identified. Assessment: 14:07 General: Appears in no apparent distress. comfortable, well groomed, well developed, sg well nourished, Behavior is calm, cooperative, appropriate for age. Pain: Complains of pain in left ear Quality of pain is described as aching. Neuro: Level of Consciousness is awake, alert, obeys commands, Oriented to person, place, time, situation, Imaging Services Director are equal bilaterally Moves all extremities. Speech is normal, Facial symmetry appears normal. Cardiovascular: Capillary refill is brisk in bilateral fingers Patient's skin is warm and dry. Chest pain is denied. Respiratory: Airway is patent Respiratory effort is even, unlabored, Respiratory pattern is regular, symmetrical. GI: Abdomen is round non-distended, Bowel sounds present X 4 quads. : No signs and/or symptoms were reported regarding the genitourinary system. EENT: Ear canal clear on left ear. Derm: Skin is normal. Musculoskeletal: No signs and/or symptoms reported regarding the musculoskeletal system. Vital Signs: 13:59 BP 101 / 69; Pulse 100; Resp 19; Temp 97.2; Pulse Ox 100% on R/A; Pain 6/10; sg ED Course: 13:49 Patient arrived in ED. tw3 13:59 Triage completed. sg 13:59 Arm band placed on. sg 14:03 Mejia Brewer PA is PHCP. jr8 14:03 Lucas Loza MD is Attending Physician. jr8 14:07 No provider procedures requiring assistance completed. sg 14:15 Patient has correct armband on for positive identification. hb 14:23 Keara Aggarwal MD is Referral Physician. jr8 14:26 Patient did not have IV access during this emergency room visit. hb Administered Medications: No medications were administered Outcome: 14:24 Discharge ordered by . 8 14:26 Condition: stable hb 14:26 Discharged to home ambulatory. hb 14:26 Discharge instructions given to patient, Instructed on discharge instructions, follow up and referral plans. medication usage, Demonstrated understanding of instructions, follow-up care, medications, Prescriptions given X 1. 14:27 Patient left the ED. hb Signatures: Shashank Mahajan RN MAIKEL Mejia Brweer PA PA [facility] Sonali Steven RN RN Jody García tw3
[2018-10-11 15:57] VITALS: BP 101/69; TEMP 97.2; O2SAT 100
== END 2018-10-11 14:27 | disposition home or self-care (01) ==
LOC: ER 13:46
DX: H90.8 Mixed conductive and sensorineural hearing loss, unspecified (principal)
CPT/HCPCS: 99282

== ENCOUNTER 2019-02-20 17:38 | Emergency (ER) | payer OTHER ==
[2019-02-20] MEDS ORDERED: TETANUS & DIPHTHERIA TOX,ADULT 0.5 ML VIAL ONE (17:56)
--- NOTE | 2019-02-20 17:59 | ER ---
Nurse's Notes [facility] Name: Yadira Land Age: 68 yrs Sex: Female : 1950 Arrival Date: 02/20/2019 Time: 17:42 Bed 24 Private MD: Diagnosis: Abrasion of left hand-skin tear Presentation: 02/20 17:43 Presenting complaint: Patient states: "A mirror broke and I was picking up the pieces aj1 and I cut my hand on it" Skin tear to left hand, not currently bleeding. Transition of care: patient was not received from another setting of care. Complicating Factors: There are no complicating factors for this patient. Onset of symptoms was February 20, 2019 at 17:15. Risk Assessment: Do you want to hurt yourself or someone else? Patient reports no desire to harm self or others. Initial Sepsis Screen: Does the patient meet any 2 criteria? No. Patient's initial sepsis screen is negative. Does the patient have a suspected source of infection? No. Patient's initial sepsis screen is negative. Care prior to arrival: None. 17:43 Method Of Arrival: Ambulatory [facility] 17:43 Acuity: KARSTEN 4 aj1 Triage Assessment: 17:46 General: Appears in no apparent distress. comfortable, Behavior is calm, cooperative, aj1 appropriate for age. Pain: Complains of pain in left hand Pain currently is 8 out of 10 on a pain scale. Historical: - Allergies: 17:46 No Known Allergies; aj1 - Home Meds: 17:46 metformin 1,000 mg Oral tab 1 tab 2 times per day [Active]; aj1 - PMHx: 17:46 Diabetes - NIDDM; aj1 - PSHx: 17:46 Appendectomy; Cholecystectomy; aj1 - Immunization history:: Last tetanus immunization: unknown. - Social history:: Smoking status: Patient/guardian denies using tobacco. - Ebola Screening: : Patient denies travel to an Ebola-affected area in the 21 days before illness onset. Screenin:20 Abuse screen: Denies threats or abuse. Denies injuries from another. Nutritional mg2 screening: No deficits noted. Tuberculosis screening: No symptoms or risk factors identified. Fall Risk None identified. Assessment: 18:18 General: Appears in no apparent distress. comfortable, Behavior is calm, cooperative. mg2 Pain: Complains of pain in left hand Pain does not radiate. Pain currently is 2 out of 10 on a pain scale. Quality of pain is described as aching, Pain began suddenly, Is intermittent. Neuro: Level of Consciousness is awake, alert, obeys commands, Oriented to person, place, time, situation. Cardiovascular: Capillary refill < 3 seconds Patient's skin is warm and dry. Respiratory: Airway is patent Respiratory effort is even, unlabored, Respiratory pattern is regular, symmetrical. GI: No signs and/or symptoms were reported involving the gastrointestinal system. : No signs and/or symptoms were reported regarding the genitourinary system. EENT: No signs and/or symptoms were reported regarding the EENT system. Derm: Wound noted left hand. Musculoskeletal: Circulation, motion, and sensation intact. Capillary refill < 3 seconds. Injury Description: Abrasion sustained to left hand is. 18:22 Injury Description: Laceration is clean, not bleeding. mg2 Vital Signs: 17:46 BP 145 / 74; Pulse 92; Resp 18; Temp 97.4; Pulse Ox 97% on R/A; Weight 68.04 kg (R); aj1 Height 5 ft. 4 in. (162.56 cm) (R); 17:46 Body Mass Index 25.75 (68.04 kg, 162.56 cm) aj1 ED Course: 17:42 Patient arrived in ED. mr 17:43 Marian Zabala, DELROY[facility]C [facility]. kb 17:43 Ramin Easton MD is Attending Physician. kb 17:45 Triage completed. aj1 17:46 Arm band placed on. aj1 17:53 Wander Morejon, MAIKEL is Primary Nurse. mg2 18:20 No provider procedures requiring assistance completed. Patient did not have IV access mg2 during this emergency room visit. Wound care: to abrasion, located on left hand was cleaned with Betadine, dressed with Neosporin, 4X4s, Patient tolerated well. 18:21 Patient has correct armband on for positive identification. mg2 Administered Medications: 18:18 Drug: Tetanus-Diphtheria Toxoid Adult 0.5 ml {Stitch Cleaner: [employer]. Exp: mg2 10/07/2020. Lot #: [id number]. } Route: IM; Site: right deltoid; 18:18 Follow up: Response: No adverse reaction; Medication administered at discharge. mg2 Outcome: 17:58 Discharge ordered by . rosa 18:21 Discharged to home ambulatory, with family. mg2 18:21 Condition: good 18:21 Discharge instructions given to patient, family, Instructed on discharge instructions, follow up and referral plans. wound care, Demonstrated understanding of instructions, follow-up care, wound care. 18:22 Patient left the ED. mg2 Signatures: Marian Zabala, MANAGER LOSS PREVENTION-C MANAGER LOSS PREVENTION-Cathryn Zayas RN RN aj1 RebolledoMag Wander Morejon RN RN mg2 Corrections: (The following items were deleted from the chart) 17:47 17:43 Presenting complaint: Patient states: "A mirror broke and I was picking up the aj1 pieces and I cut my hand on it" Laceration to left hand, not currently bleeding aj1 18:20 18:18 Injury Description: Laceration sustained to left hand is clean, not bleeding, was mg2 sustained 1-2 hours ago. is bleeding no active bleeding noted. mg2
--- NOTE | 2019-02-20 18:00 | EDPHYS ---
Physician Documentation [facility] Name: Yadira Land Age: 68 yrs Sex: Female : 1950 Arrival Date: 02/20/2019 Time: 17:42 Bed 24 Private MD: ED Physician Ramin Easton HPI: 02/20 17:57 This 68 yrs old Female presents to ER via Ambulatory with complaints of kb Laceration To Hand. 17:57 The patient has a laceration related to: picking up broken mirror occurred at home, and kb there are no complicating factors. The injury was accidental. The laceration(s) is(are) located on the medial aspect of left hand. Onset: The symptoms/episode began/occurred just prior to arrival. Associated signs and symptoms: The patient has no apparent associated signs or symptoms. The patient has not experienced similar symptoms in the past. The patient has not recently seen a physician. Historical: - Allergies: 17:46 No Known Allergies; aj1 - Home Meds: 17:46 metformin 1,000 mg Oral tab 1 tab 2 times per day [Active]; aj1 - PMHx: 17:46 Diabetes - NIDDM; aj1 - PSHx: 17:46 Appendectomy; Cholecystectomy; aj1 - Immunization history:: Last tetanus immunization: unknown. - Social history:: Smoking status: Patient/guardian denies using tobacco. - Ebola Screening: : Patient denies travel to an Ebola-affected area in the 21 days before illness onset. ROS: 17:56 Constitutional: Negative for fever, chills, and weight loss, ENT: Negative for injury, kb pain, and discharge, Neck: Negative for injury, pain, and swelling, Cardiovascular: Negative for chest pain, palpitations, and edema, Respiratory: Negative for shortness of breath, cough, wheezing, and pleuritic chest pain, Abdomen/GI: Negative for abdominal pain, nausea, vomiting, diarrhea, and constipation, MS/Extremity: Negative for injury and deformity, Neuro: Negative for headache, weakness, numbness, tingling, and seizure. 17:56 Skin: Positive for laceration(s), of the medial aspect of left hand. Exam: 17:56 Constitutional: This is a well developed, well nourished patient who is awake, alert, kb and in no acute distress. Head/Face: Normocephalic, atraumatic. Neck: Trachea midline, no thyromegaly or masses palpated, and no cervical lymphadenopathy. Supple, full range of motion without nuchal rigidity, or vertebral point tenderness. No Meningismus. Chest/axilla: Normal chest wall appearance and motion. Nontender with no deformity. No lesions are appreciated. Cardiovascular: Regular rate and rhythm with a normal S1 and S2. No gallops, murmurs, or rubs. Normal PMI, no JVD. No pulse deficits. Respiratory: Lungs have equal breath sounds bilaterally, clear to auscultation and percussion. No rales, rhonchi or wheezes noted. No increased work of breathing, no retractions or nasal flaring. Abdomen/GI: Soft, non-tender, with normal bowel sounds. No distension or tympany. No guarding or rebound. No evidence of tenderness throughout. MS/ Extremity: Pulses equal, no cyanosis. Neurovascular intact. Full, normal range of motion. Neuro: Awake and alert, GCS 15, oriented to person, place, time, and situation. Cranial nerves II-XII grossly intact. Motor strength 5/5 in all extremities. Sensory grossly intact. Cerebellar exam normal. Normal gait. 17:56 Skin: injury, skin tear to medial aspect of left hand. Vital Signs: 17:46 BP 145 / 74; Pulse 92; Resp 18; Temp 97.4; Pulse Ox 97% on R/A; Weight 68.04 kg (R); aj1 Height 5 ft. 4 in. (162.56 cm) (R); 17:46 Body Mass Index 25.75 (68.04 kg, 162.56 cm) aj1 MDM: 17:47 Patient medically screened. kb 17:48 Data reviewed: vital signs, nurses notes. Data interpreted: Pulse oximetry: on room air kb is 97 %. Interpretation: normal. Counseling: I had a detailed discussion with the patient and/or guardian regarding: the historical points, exam findings, and any diagnostic results supporting the discharge/admit diagnosis, the need for outpatient follow up, a family practitioner, to return to the emergency department if symptoms worsen or persist or if there are any questions or concerns that arise at home. 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 Exp: mg2 10/07/2020. Lot #: [id number]. } Route: IM; Site: right deltoid; 18:18 Follow up: Response: No adverse reaction; Medication administered at discharge. mg2 Disposition: 18:34 Co-signature as Attending Physician, Ramin Easton MD. rn Disposition: 02/20/19 17:58 Discharged to Home. Impression: Abrasion of left hand - skin tear. - Condition is Stable. - Discharge Instructions: Skin Tear Care, [id number]. - Medication Reconciliation Form, Thank You Letter, Antibiotic Education, Prescription Opioid Use form. - Follow up: Emergency Department; When: As needed; Reason: Worsening of condition. Follow up: Private Physician; When: 2 - 3 days; Reason: Recheck today's complaints, Continuance of care, Re-evaluation by your physician. Signatures: Marian Zabala, REVENUE CYCLE MANAGER-C REVENUE CYCLE MANAGER-Ckb Cathryn Edwards RN RN aj1 Ramin Easton MD MD rn Gardose, Michele, RN RN mg2 Corrections: (The following items were deleted from the chart) 18:22 17:58 02/20/2019 17:58 Discharged to Home. Impression: Abrasion of left hand - skin mg2 tear. Condition is Stable. Forms are Medication Reconciliation Form, Thank You Letter, Antibiotic Education, Prescription Opioid Use. Follow up: Emergency Department; When: As needed; Reason: Worsening of condition. Follow up: Private Physician; When: 2 - 3 days; Reason: Recheck today's complaints, Continuance of care, Re-evaluation by your physician. kb
[2019-02-20 18:56] VITALS: BP 145/74; TEMP 97.4; O2SAT 97
== END 2019-02-20 18:22 | disposition home or self-care (01) ==
LOC: ER 17:38
DX: S60.512A Abrasion of left hand, initial encounter (principal); W25.XXXA Contact with sharp glass, initial encounter; Y93.89 Activity, other specified; Y92.9 Unspecified place or not applicable; E11.9 Type 2 diabetes mellitus without complications; Z23 Encounter for immunization
CPT/HCPCS: 90471; 90714; 99283

== ENCOUNTER 2019-12-24 21:03 | Emergency (ER) | payer OTHER ==
--- OUTSIDE RECORDS SUMMARY | 2019-12-24 21:05 | XMS REPORT | Continuity of Care Document ---
:1950 Author Organization [facility] t Address [address] [place] [address] Care Team Providers Name Role Phone Osmel Tristan MD Attending Clinician Problems Condition Condition Condition Status Onset Resolution Last Treating Co mments Source Name Details Category Date Date Treatment Clinician Date Type 2 Type 2 Problem Active [facility] diabetes Diabetes 7- Family mellitus Mellitus 00:00: Practi c 00 e Diabetic Diabetic Problem Active Holder ge peripheral Peripheral 12-10 Fa [facility] neuropathy Neuropathy 00:00: Pr actic 00 e Major Major Problem Active [facility] depressive Depressive 7- Fa [facility] disorder Disorder 00:00: Practi c 00 e Essential Essential Problem Active Glenn charo hypertensi Hypertensi 7-17 Fa angel on on 00:00: Practic 00 e Bilateral Bilateral Problem Active Glenn charo knee pain Knee Pain 7-17 Fami ly 00:00: Practic 00 e Trigger Trigger Problem Active [facility] finger, finger, [facility] - left ring left ring Juan rico finger finger l [facility] Burn Burn Problem [facility] Right hand Right hand Problem Active [facility] pain pain [facility] Carpal Carpal Problem Active [facility] tunnel tunnel [facility] - syndrome syndrome Memori a on both on both l sides sides Outpati ent Clinics Uncontroll Uncontroll Problem Active [facility] ed type 2 ed type 2 Luke [facility] - diabetes diabetes Memori a mellitus mellitus l with with Outpati hyperglyce hyperglyce en t [facility] Clinics Essential Essential Problem Active [facility] hypertensi hypertensi Safia kes - on on Memoria l [facility] Clinics Trigger Trigger Problem Active [facility] finger, finger, [facility] - unspecifie unspecifie Me bailee segura finger, d finger, l unspecifie unspecifie Ou tpati d d ent laterality laterality Cl inics Allergic Allergic Problem Active [facility] rhinitis rhinitis [facility] Depression Depression Problem Active [facility] with with [facility] anxiety anxiety [facility] Chronic Chronic Problem Active [facility] pain pain [facility] - syndrome syndrome Memori a l [facility] Seasonal Seasonal Problem Active [facility] allergies allergies [facility] - Memoria l [facility]ics Vulvovagin Vulvovagin Problem Active [facility] itis itis [facility] - [facility]ics Lipoma of Lipoma of Problem Active [facility] torso torso [facility] Screening Screening Problem Active [facility] for colon for colon Luke s - cancer cancer Memoria l [facility] Screening Screening Problem Active [facility] for breast for breast Safia kes - cancer cancer Memoria l [facility] Primary Primary Problem Active [facility] osteoarthr osteoarthr Safia kes - itis of itis of Memoria left hand left hand l [facility]ics Osteopenia Osteopenia Problem Active [facility] of hand, of hand, [facility] - unspecifie unspecifie Me morimikey d d l laterality laterality Ou tpati ent Clinics Diabetes Diabetes Problem Active [facility] mellitus, mellitus, Luke s - type 2 type 2 Memoria l [facility] Hospital Hospital Problem Active [facility] discharge discharge Luke s - follow-up follow-up Juan rico l [facility] Clin[facility] Acute pain Acute pain Problem Active [facility] of right of right [facility] - knee knee Memoria l [facility]ics Effusion Effusion Problem Active [facility] of knee of knee [facility] - joint joint Memoria right right l Outpati ent Clinics Primary Primary Problem Active [facility] osteoarthr osteoarthr Safia kes - itis, itis, Memoria right hand right hand l Outpati ent Clinics Primary Primary Problem Active [facility] osteoarthr osteoarthr Safia kes - itis itis [facility] involving involving l multiple multiple Outpat i joints joints ent Clinics Cough Cough Problem Active [facility] Clin[facility] Common Common Problem Active [facility] cold virus cold virus [facility] [employer] Exposure Exposure Problem Active [facility] to the flu to the flu [facility] [employer] Body aches Body aches Problem Active C HI [facility] [employer] Allergies, Adverse Reactions, Alerts This patient has no known allergies or adverse reactions. Social History Smoking Status Start Date Stop Date Source [facility] Medications Ordered Filled Start Stop Current Ordering Indication Dosage Frequency Signature Comments Components Source Medication Medication Date Date Medication? Clinician (SIG) Name Name Avis Albarran Yes Alicia 1 tablet [facility] I 10-19 Millender [facility] - 00:00: Memoria 00 [facility] [employer] Meloxicam Meloxicam 2019- Yes Alicia 1-2 C [facility] 10-19 06-25 Millender tablets as Maricel es - 00:00: 00:00 needed for Memori a 00 :00 pain; take l with food [facility] or milk ent Clinics citalopram citalopram No 1 Q1D citalopram [facility] 10 mg 10 mg 10 mg Family tablet Take tablet Take tablet Practic 1 tablet 1 tablet Take 1 e every day every day tablet by oral by oral every day route. route. by oral route. gabapentin gabapentin No 1capsul BID gabapentin [facility] 300 mg 300 mg e(s) 300 mg Family capsule capsule capsule Practi c Take 1 Take 1 Take 1 e capsule capsule capsule twice a day twice a day twice a by oral by oral day by route. route. oral route. hydroxyzine hydroxyzine No 1 TID hydroxyzin [facility] HCl 25 mg HCl 25 mg e HCl 25 F amily tablet Take tablet Take mg tablet Practic 1 tablet 3 1 tablet 3 Take 1 e times a day times a day tablet 3 by oral by oral times a route as route as day by directed. directed. oral route as directed. lisinopril lisinopril No 1 Q1D lisinopril [facility] 20 mg 20 mg 20 mg Family tablet Take tablet Take tablet Practic 1 tablet 1 tablet Take 1 e every day every day tablet by oral by oral every day route. route. by oral route. meloxicam meloxicam No 1 Q1D meloxicam [facility] 7.5 mg 7.5 mg 7.5 mg Family tablet Take tablet Take tablet Practic 1 tablet 1 tablet Take 1 e every day every day tablet by oral by oral every day route. route. by oral route. metformin metformin No 1 BID metformin [facility] 1,000 mg 1,000 mg 1,000 mg Fam mara tablet Take tablet Take tablet Practic 1 tablet 1 tablet Take 1 e twice a day twice a day tablet by oral by oral twice a route. route. day by oral route. Celexa Celexa Yes Alicia [address] [facility] Millender [facility] Outpati ent Clinics Acetaminoph Acetaminoph Yes Alicia [address] [facility] en-Codeine en-Codeine Millender as needed [facility] - #3 #3 Memoria l Outpati ent Clinics Lisinopril Lisinopril Yes Alicia [address] [facility] Mill[facility] Clin[facility] Melatonin Melatonin Yes Alicia [address] [facility] Millender at bedtime Luke s - as needed Memoria with food l Outpati ent Clinics Gabapentin Gabapentin Yes Alicia [address] [facility] Millender [facility] Out[facility] ent Clinics Diclofenac Diclofenac Yes Alicia TAKE [address] [facility] Sodium Sodium Millender TABLET BY L ukes - MOUTH Memoria TWICE A l DAY WITH Outpati MEALS ent Clinics Metformin Metformin Yes Alicia [address] [facility] [facility] HCl HCl Millender with meals [facility] - Memoria l [facility] Farxiga 5 Farxiga 5 No 1 Q1D Farxiga 5 [place] mg tablet mg tablet mg tablet da Take 1 Take 1 Take 1 Medical tablet tablet tablet Group every day every day every day by oral by oral by oral route. route. route. fluticasone fluticasone No 1spray( BID fluticason [place] propionate propionate s) e da 50 50 propionate Medical mcg/actuati mcg/actuati 50 G roup on nasal on nasal mcg/actuat spray,suspe spray,suspe ion nasal nsion [place]eter nsion [place] spray,susp 1 spray 1 spray ension twice a day twice a day [place] 1 by by spray intranasal intranasal twice a route for route for day by 30 days. 30 days. intranasal route for 30 days. metformin metformin No 1 BID metformin [place] 1,000 mg 1,000 mg 1,000 mg da tablet Take tablet Take tablet Medical 1 tablet 1 tablet Take 1 Group twice a day twice a day tablet by oral by oral twice a route. route. day by oral route. Pipe Betancur Alicia [address] 10-19 Millender [facility] - 00:00 Memoria :00 l Outpati ent Clinics Vital Signs Vital Name Observation Time Observation Value Comments Source Height 2019-12-11 00:00:00 63 [in_i] [facility] BMI (Body Mass 2019-12-11 00:00:00 28.9 kg/m2 [facility] Family Index) Practice Body Weight 2019-12-11 00:00:00 163 [lb_av] [facility] BP Diastolic 2018-11-14 00:00:00 83 mm[Hg] [facility] Height 2018-11-14 00:00:00 64 [in_i] [facility] BMI (Body Mass 2018-11-14 00:00:00 25.5 kg/m2 [facility] front office help Medical Index) Group BP Systolic 2018-11-14 00:00:00 149 mm[Hg] [facility] Body Weight 2018-11-14 00:00:00 148.4 [lb_av] [facility] Procedures Procedure Date / Time Performed Performing Clinician Sour e TYMPANOMETRY 2018-11-14 00:00:00 [facility] Plan of Care Planned Activity Planned Date Details Comments Source Future Appointment 2020-02-12 10:00:00 Prerna whalen [facility] Jorge Alberto, [address]; [address], [place] [address] Instructions [facility] Instructions [facility] Encounters Start End Encounter Admission Attending Care Care Encounter Source Date/Time Date/Time Type Type Clinicians Facility Department ID 2019-12-23 2019-12-[address] [facility] [id number] 10:54:00 10:54: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 2019-12-10 2019-12-10 Office Azalea AZALEX [id number] 15:07:12 15:45:01 Visit [facility] [id number] Surgical [id number] Specialti [id number] 198 [place] 2019-12-03 2019-12-03 [facility] [id number] [facility] 14:42:00 14:42:00 t [facility] ent Clinics 2019-10-27 2019-10-27 [facility] [id number] 16:30:00 16:30:00 t [facility] - and Joint [facility] [employer] 2019-10-20 2019-10-20 [facility] [id number] 22:55:00 22:55:00 t [facility] [employer] [facility] 2019-10-20 2019-10-20 [facility] [id number] 09:40:00 09:40:00 [facility] ent Clinics 2018-11-14 2018-11-14 Declan [facility] [place] - [id number] [place] 00:00:00 00:00:00 MD Tonya: [facility] [address] [place] [address] Group [facility] - [address], Otolaryngol [facility] [address] , Ph. Results Test Description Test Time Test Comments Results Result Comments Source tympanogram 2018-11-14 10:54:48 Test Item Value Reference Range Interpretation Comme nts Right (test code = Right) Type C Peak is on Left Left (test code = Left) Type B Curve Flat [facility]
--- OUTSIDE RECORDS SUMMARY | 2019-12-24 21:05 | XMS REPORT | Summary of Care ---
:1950 Author Organization [facility] Address [address] [place] [id number] Care Team Providers Name Role Phone Osmel Tristan MD Unavailable Jamaica Gonzalez PAC Unavailable Tatiana Keith Primary Care Provider Reason for Visit Reason Comments Notification The patient was in the offic e on 09/22/19. She stated her pain [facility] Encounter Details Date Type Department Care Team Description 09/28/2019 Telephone [facility] Orthopaedic Travis Gonzalez S, Kailee otification ([facility] [place] PAC patient was in the [address] [facility], [facility] office on 09/22/19. She [address] [place] [address] [place], [place] medication has not been [phone] sent to the pharmacy) [phone] Allergies No Known Allergiesdocumented as of this encounter (statuses as of 09/29/2019) Medications Medication Sig Dispensed Refills Start Date End Date Status metFORMIN (GLUCOPHAGE) Take 1,000 mg by 0 Active 1,000 mg tablet mouth 2 (two) times daily with meals. GLIMEPIRIDE ORAL Take 2 mg by 0 Active mouth daily. insulin glargine (LANTUS inject 15 Units 0 Active U-100) 100 unit/mL under the skin injection at bedtime. LORazepam 0.5 mg tablet TAKE 1 TABLET BY 0 8 Active MOUTH EVERY 12 HOURS NEEDED FOR ANXIETY naproxen 500 mg tablet TAKE 1 TABLET 1 12/04/2017 Active WITH FOOD OR MILK NEEDED TWICE A DAY ORALLY 30 DAYS terbinafine HCl 250 mg Take 250 mg by 2 11/06/2017 Active tablet mouth daily. gabapentin 300 mg Take 1 capsule 30 capsule 0 06/05/2019 Active capsuleIndications: Burn by mouth 3 (three) times daily. methylPREDNISolone Take 21 tablets 1 Each 0 06/11/2019 Active (MEDROL, PURNIMA,) 4 mg by mouth tabletsIndications: SEE-INSTRUCTIONS Multiple joint . follow package complaints directions hydrOXYzine 25 mg Take 1 tablet by 40 tablet 1 06/26/2019 Active tabletIndications: Burn mouth every 6 (six) hours as needed for Itching. gabapentin 600 mg Take 1 tablet by 60 tablet 1 06/26/2019 Active tabletIndications: Burn mouth 3 (three) times daily. lisinopril 10 mg tablet Take 10 mg by 0 05/19/2019 Active mouth daily. citalopram 10 mg tablet Take 10 mg by 0 05/19/2019 Active mouth daily. dapagliflozin (FARXIGA) Farxiga 5 mg tablet 0 Active 5 mg tablet Take 1 tablet every day by oral route. Diclofenac Sodium Apply to 100 g 1 08/13/2019 A ctive (VOLTAREN) 1 % area(s) 4 (four) gelIndications: Multiple times daily. joint complaints gabapentin (NEURONTIN) Take 1 capsule 90 capsule 0 09/22/2019 Active 300 mg by mouth 3 0 capsuleIndications: (three) times Right hand pain daily for 30 days. documented as of this encounter (statuses as of 09/29/2019) Active Problems Problem Noted Date Febrile 04/13/2019 Burn 04/11/2019 Lumbar radiculopathy 12/12/2017 Total knee replacement status 12/12/2015 Left knee pain 08/04/2015 Left knee pain 06/16/2015 documented as of this encounter (statuses as of 09/29/2019) Social History Tobacco Use Types Packs/Day Years Used Date Former Smoker Cigarettes Smokeless Tobacco: Never Used Comments: Occasional Smoker Alcohol Use Drinks/Week oz/Week Comments Not Currently 0 Standard drinks or equivalent 0.0 Occasional Drinker Sex Assigned at Date Recorded Not on file Job Start Date Occupation Industry Not on file Not on file Not on file Travel History Travel Start Travel End No recent travel history available. COVID-19 Exposure Response Date Recorded In the last month, have you been in contact with No / Unsure 09/22/2019 10:01 AM CDT someone who was confirmed or suspected to have Coronavirus / COVID-19? documented as of this encounter Last Filed Vital Signs Not on filedocumented in this encounter Plan of Treatment Health Maintenance Due Date Last Done Comments HEPATITIS C (HCV) SCREEN 1950 DTaP,Tdap,and Td Vaccines (1 - Tdap) 1960 Breast Cancer Screening (MAMMOGRAM) 1989 COLONOSCOPY 1999 Zoster Recombinant Vaccine (SHINGRIX) (1 of 2) 1999 LUNG CANCER SCREEN: Recommended for age 55-80 with 30 + 05/03/20 04 pack year history Medicare Wellness Visit 2014 Osteoporosis Screening 2014 PNEUMOCOCCAL VACCINES 65+ (1 of 2 - PCV13) 2014 INFLUENZA VACCINE (Season Ended) 2020 documented as of this encounter Implants Implanted Type Area Station Cleaning Porter Device Shelf Model / Identifier Expiration Serial / Date Lot Bone Cement With Gentamicin CEMENT Left: Lainey [id number] / Implanted: Qty: 1 on 12/12/2015 by Osmel Teran MD at [facility] Knee 8 [id number] / [id number] Bone Cement With Gentamicin CEMENT Left: Lainey [id number] / Implanted: Qty: 1 on 12/12/2015 by Osmel Teran MD at [facility] Knee 8 [id number] / [id number] Ez Derm Perforated Porcine Sheet 7inx 18in ([id number]) B trav #[id number] - [id number] GRAFT Right: [facility] 01/22/2020 [id number] / Implanted: Qty: 1 on 04/15/2019 by Carl Arellano MD at [facility] Arm [id number] / [id number] Cr Tibial Bearing KNEE Left: Biomet 07/18/2020 1 [id number] / Implanted: Qty: 1 on 12/12/2015 by Osmel Teran MD at [facility] Knee 1 [id number] / [id number] Modular Tibial Locking Bar KNEE Left: Biomet [id number] / Implanted: Qty: 1 on 12/12/2015 by Osmel Teran MD at [facility] Knee 5 [id number] / [id number] Regenerex Primary Tibial Tray KNEE Left: Biomet 09/18/2025 [id number] / Implanted: Qty: 1 on 12/12/2015 by Osmel Teran MD at [facility] Knee 1 [id number] / [id number] Cr Femoral - Left KNEE Left: Biomet 02/18/2025 1 [id number] / Implanted: Qty: 1 on 12/12/2015 by Osmel Teran MD at [facility] Knee 3 [id number] / [id number] Series-A Standard Patella PATELLA Left: Biomet 08/2019 [id number] / Implanted: Qty: 1 on 12/12/2015 by Osmel Teran MD at [facility] Knee 2 [id number] / [id number] Modular Finned Stem Stem Left: Biomet 10/30/2025 [id number] / Implanted: Qty: 1 on 12/12/2015 by Osmel Teran MD at [facility] Knee 2 [id number] / [id number] documented as of this encounter Results Not on filedocumented in this encounter Insurance Payer Benefit Plan / Subscriber ID Effective Dates Phone Addre ss Type Group WELLCARE MINDA WELLCARE MINDA [id number] 2016-Presen Medicare Adv PLUS PLUS CHOICE t HMO/POS ROD GARCIA [id number] 2005-Presen Tric are t documented as of this encounter
--- OUTSIDE RECORDS SUMMARY | 2019-12-24 21:06 | XMS REPORT ---
:1950 Author Organization [employer] Care Team Providers Name Role Phone Alicia Zuniga Provider Role Unavailable Allergies No Known Allergies Problems Problem Type Condition Code Onset Dates Condition Statu s Problem Trigger finger, unspecified finger, M65.30 Active unspecified laterality Problem Allergic rhinitis J30.9 Active Problem Depression with anxiety F41.8 Acti ve Problem Chronic pain syndrome G89.4 Active Problem Seasonal allergies J30.2 Active Problem Vulvovaginitis N76.0 Active Problem Lipoma of torso D17.1 Active Problem Screening for colon cancer Z12.11 A ctive Problem Screening for breast cancer Z12.39 Active Problem Carpal tunnel syndrome on both G56.03 Active sides Problem Uncontrolled type 2 diabetes E11.65 Active mellitus with hyperglycemia Problem 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 Active Problem Osteopenia of hand, unspecified M85.849 Active laterality Problem Trigger finger, left ring finger M65.342 Active Problem Diabetes mellitus, type 2 E11.9 Ac tive Problem Hospital discharge follow-up Z09 Active Problem Essential hypertension I10 Activ e Problem Burn T30.0 Active Problem Right hand pain M79.641 Active Problem Acute pain of right knee M25.561 Act riley Problem Effusion of knee joint right M25.461 Active Problem Primary osteoarthritis, right hand M19.041 Active Problem Primary osteoarthritis involving M15.0 Active multiple joints Problem Cough R05 Active Problem Common cold virus J00 Active Problem Exposure to the flu Z20.828 Active Problem Body aches R52 Active Medications No Known Medications Results No Known Results Summary Purpose eClinicalWorks Submission
--- OUTSIDE RECORDS SUMMARY | 2019-12-24 21:06 | XMS REPORT ---
:1950 [facility] Care Team Providers Name Role Phone FedeAlicia kim Provider Role Unavailable Allergies, Adverse Reactions, Alerts Substance Reaction Event Type N.K.D.A. Info Not Available Non Drug Allergy Problems Problem Type Condition Code Onset Dates Condition Statu s Assessment Trigger finger, left ring finger M65.342 Active Assessment Burn T30.0 Active Assessment Right hand pain M79.641 Active Assessment Carpal tunnel syndrome on both G56.03 Active sides Assessment Uncontrolled type 2 diabetes E11.65 Active mellitus with hyperglycemia Assessment Essential hypertension I10 Activ e Problem Trigger finger, unspecified finger, M65.30 Active [...] pain of right knee M25.561 Act riley Assessment Depression with anxiety F41.8 Acti ve Problem Effusion of knee joint right M25.461 Active Problem Primary osteoarthritis, right hand M19.041 Active Problem Primary osteoarthritis involving M15.0 Active multiple joints Problem Cough R05 Active Problem Common cold virus J00 Active Problem Exposure to the flu Z20.828 Active Problem Body aches R52 Active Medications Medication Code Code Instructions Start End Status Dosage System Date Date Celexa [facility] 31003485582 10 MG Orally Active 1 table t Once a day Acetaminophen- [facility] 51299266105 300-30 MG Active 1 t ablet Codeine #3 Orally every 4 as nee ded hrs Lisinopril [facility] 85826558042 20 MG Orally Active 1 ta blet Once a day Melatonin ND 51199573277 5 MG Orally Active 1 tabl et Once a day at bedtime as needed with food Gabapentin [facility] 11181903999 800 MG Orally Active 1 t ablet Three times daily Diclofenac [facility] 28924118571 75 MG Oral Active TAKE 1 Sodium TABLET BY MOUTH TWICE A DAY WITH MEALS Celexa [facility] 21001103038 10 MG Orally Active 1 table t Once a day Metformin HCl [facility] 60227454767 1000 MG Orally Active 1 tablet Twice a day with meals Farxiga [facility] 61092239706 5mg By Mouth October 19, Inactive 1 Daill2019 Januvia [facility] 83612228337 50 MG Orally October 19, Active 1 table t Once a day for 2019 diabetes Meloxicam [facility] 14506567586 7.5 MG Orally October 19October Active 1-2 Once a day; 2019, tablets as stop any OTC 2019 needed for NSAIDS pain; take with food or milk Results Name Result Date Reference Range Unit Abnormali ty Flag HEMOGLOBIN A1C ----A1C 8.6% [id number] Summary Purpose eClinicalWorks Submission
--- OUTSIDE RECORDS SUMMARY | 2019-12-24 21:06 | XMS REPORT ---
[...] Acute pain of right knee M25.561 Act irley Problem Effusion of knee joint right M25.461 [...]
--- OUTSIDE RECORDS SUMMARY | 2019-12-24 21:06 | XMS REPORT ---
:1950 Author Organization eClinicalWorks Care Team Providers Name Role Phone Camden Chamorro Provider Role Unavailable Allergies No Known Allergies [...]
--- OUTSIDE RECORDS SUMMARY | 2019-12-24 21:07 | XMS REPORT | Encounter Summary ---
:1950 Author Care Team Providers Name Role Phone Dr. Christian Martinez Primary Care Provider [phone] Alicia Zuniga MD Primary Care Provider [phone] Reason for Visit TELE-AWV Annual Wellness Visit Female Instructions 1. Advance directive discussed w ith patient advance care planning: car e instructions 2. Depression screening learning about depression 3. Type 2 diabetes mellitus with peripheral angiopathy metformin 1,000 mg tablet 4. Bilateral knee pain meloxicam 7.5 mg tablet 5. Diabetic peripheral neuropath y gabapentin 300 mg capsule 6. Essential hypertension lisinopril 20 mg tablet 7. Major depressive disorder citalopram 10 mg tablet Discussion Note Completed a telephone audio visit o nly with patient. Patient report she has enough meds currently and does not need any refills. Patient encouraged to wash hands frequently for 20 seconds, practice soci al distancing by stay home and maintaini ng physical space in public. Patient encouraged to seek medical care if she starts having continues cough, fever and sob. Patient verbalized understanding. Plan of Care Patient Instructions It was good to speak with you chelly jessicateodoro today for your Medicare Annual Wellness Visit. You have been provided some information on healthy nutrition, including a diet rich in fruits and vegetables, minimizing simple carbohydrates, salt, and saturated fats. I want to encourage regular cardiovascular exercise such as walking at least 30 minutes daily, 5 times per week. Please remember to schedule any prevent riley health measures that we talked about today. You have also been provided education on fall prevention and community- based lifestyle interventions to help reduc e health risks and promote healthy livin g in your Annual Wellness folder. Screening Recommendations 1. Vaccines Pneumonia: Next one Influen za: Next Fall 2. Mammography Screening: Recommended today 3. Colorectal Cancer Screening: Colonoscopy (every 10 years) Recommended today 4. Annual Depression Scre ening 5. Annual Alcohol Screening 6. Karlee ual Fall Risk Screening 7. Annual Health Risk Assessment Reminders Provider Appointments Telemedicine 30 Prerna 02/12/2020 BRENDAN Azul 10:00AM Lab None recorded. Referral None recorded. Procedures None recorded. Surgeries None recorded. Imaging None recorded. Medications Name Start Date citalopram 10 mg tablet Take 1 tablet every day by oral route. gabapentin 300 mg capsule Take 1 capsule twice a day by oral route. hydroxyzine HCl 25 mg tablet Take 1 tablet 3 times a day by oral route as directed . lisinopril 20 mg tablet Take 1 tablet every day by oral route. meloxicam 7.5 mg tablet Take 1 tablet every day by oral route. metformin 1,000 mg tablet Take 1 tablet twice a day by oral route. Medications Administered None recorded. Vitals Height Weight BMI 5 ft 3 in 163 lbs 28.9 kg/m2 Results Lab Results None recorded. Allergies Code Code System Name Reaction Severity Status Onset NKDA Problems Name Status Onset Date Source Type 2 Diabetes Mellitus Active 12/11/2019 Diabetic Peripheral Neuropathy Active 12/11/2019 Major Depressive Disorder Active 12/11/2019 Essential Hypertension Active 12/11/2019 Bilateral Knee Pain Active 12/11/2019 Procedures None recorded. Vaccine List None recorded. Social History Tobacco Smoking Status Former Smoker (1 PPW) Past Encounters 12/11/2019 Advance Directive Discussed with Patient ; Depression Screening; Type 2 Diabetes Mellitus with Peripheral Angiopathy; Bilateral Knee Pain; Diabetic Peripheral Neuropathy; Essential Hypertension; Major Depressive Disorder Prerna Azul, BLADDER BLOWER: [address] [facility], [address], [place] [address], Ph. History of Present Illness Mini Cog Reported By: Patient Functional Ability: Personal/Social/ 3 word reca ll: Your nurse or doctor will ask you to remember 3 words. In 5 m inutes, they will ask you to repeat them. Patient recalled 3 w ords Opioid Use Assessment Reported By: Patient Opioid Use Assessment:: Current Use of Opioids : no use of opioids (no further questions required) Note: I confirm that I received verbal consent from the patient for the virtual visit.
This telemedicine encounter was performed using live {{video and audio|audio only because either patient did not have technology or unable to connect due to technical problems*}}.
<strong>(for a udio only)</strong> Total time spent with patient: {{50#| }} minutes.<div>[facility] ( RODOLFO: ____Nicoleata_Fozia Grady ) reviewed the [employer] Care consent form verbally with patient. Patient {{did*|did not}} have questions. Any and all patient questions were addressed. Patient consented to health care services provided via [employer]. Patient was directed to the [facility] website to review the form in greater detail. Patient was informed that a physical copy of theconsent would be mailed to his/her home. Patient confirmed that, upon receipt of the consent, that he/she will sign and return the form in the pre-addressed and stamped envelope.</div> Review of Systems Comprehensive General Adult ROS Reported By: Patient Constitutional: Constitutional: no fever, no night sweats, no significant weight gain, no significant weight loss, no exercise intolerance Eyes: Eyes: no dry eyes, no vision change, no irritation ENMT: Ears: no difficulty hearing, no ear pain. Nose: no frequent nosebleeds, no nose problems , no sinus problems. Mouth/Throat: no sore throat, no bleeding gums, no snoring, no dry mouth, no mouth ulcers, no oral abnorm alities, no teeth problems Cardiovascular: Cardiovascular: no chest saul n, no arm pain on exertion, no shortness of breath when wal jennifer, no shortness of breath when lying down, no palpitations, no known heart murmur, no lightheadedness Respiratory: Respiratory: no cough, no wh eezing, no shortness of breath, no coughing up blood, no sleep apnea Gastrointestinal: Gastrointestinal: no abdomin al pain, no nausea, no vomiting, no constipation, normal appe tite, no diarrhea, not vomiting blood, no dyspepsia, no GERD Genitourinary: Genitourinary: no incontinen ce, no difficulty urinating, no hematuria, no increased freq uency Musculoskeletal: Musculoskeletal: no muscle a ches, no muscle weakness, no back pain, no swelling in the ext remities, arthralgias/joint pain Integumentary: Skin: no abnormal mole, no j aundice, no rashes, no laceration Neurologic: Neurologic: no loss of consc iousness, no weakness, no numbness, no seizures, no di zziness, no migraines, no headaches, no tremor Psychiatric: Psych: no depression, no sle ep disturbances, feeling safe in a relationship, no alcohol abu se, no anxiety, no hallucinations, no suicidal thoughts Endocrine: Endocrine: no fatigue Hematologic/Lymphatic: Hematologic/Lymphatic no swo llen glands, no bruising, no excessive bleeding Allergic/Immunologic: Allergy/Immunologic: no runn y nose, no sinus pressure, no itching, no hives, no freque nt sneezing Physical Exam None recorded."
--- OUTSIDE RECORDS SUMMARY | 2019-12-24 21:07 | XMS REPORT | Summary of Care ---
:1950 Author Organization [facility] Address [address] [place] [address] Care Team Providers Name Role Phone Osmel Tristan MD Unavailable Jamaica Gonzalez PAC Unavailable Tatiana Keith Primary Care Provider Encounter Details Date Type Department Care Team Description 12/10/2019 Hospital En[facility] [address] [id number] [phone] Allergies No Known Allergiesdocumented as of this encounter (statuses as of 12/11/2019) Medications Medication Sig Dispensed Refills Start Date [...] (four) gelIndications: Multiple times daily. joint complaints documented as of this encounter (statuses as of 12/11/2019) Active Problems Problem Noted Date Febrile 04/13/2019 Burn 04/11/2019 Lumbar radiculopathy 12/12/2017 Total knee replacement status 12/12/2015 Left knee pain 08/04/2015 Left knee pain 06/16/2015 documented as of this encounter (statuses as of 12/11/2019) Social History Tobacco Use Types Packs/Day Years [...] been in contact with No / Unsure 12/10/2019 3:03 PM CDT someone who was confirmed or suspected to have Coronavirus / COVID-19? documented as of this encounter Last Filed Vital Signs Not on filedocumented in this encounter Plan of Treatment Name Type Priority Associated Diagnoses Date/Ti me XR KNEE <3 VW RIGHT IMAGING Routine Pain 12/10/19 20 3:19 PM CDT Name Type Priority Associated Diagnoses Order S chedule XR KNEE <3 VW RIGHT IMAGING Routine Pain 1 Occurr ences starting 12/10/2019 unti l 12/10/2019 Health Maintenance Due Date Last Done Comments HEPATITIS C (HCV) SCREEN 1950 DTaP,Tdap,and Td Vaccines (1 - Tdap) 1960 Breast Cancer Screening (MAMMOGRAM) 1989 COLONOSCOPY 1999 Zoster Recombinant Vaccine (SHINGRIX) (1 of 2) 1999 LUNG CANCER SCREEN: Recommended for age 55-80 with 30 2004 + pack year history Medicare Wellness Visit 2014 Osteoporosis Screening 2014 PNEUMOCOCCAL VACCINES 65+ (1 of 2 - PCV13) 2014 INFLUENZA VACCINE (#1) 2020 Depression Screening 07/16/2020 07/16/2019 documented as of this encounter Implants Implanted Type Area Cover Remover Device Shelf Model / Identifier Expiration Serial / Date Lot Bone Cement With Gentamicin CEMENT Left: Lainey [id number] / Implanted: Qty: 1 on 12/12/2015 by Osmel Teran MD at [facility] Knee 8 [id number] / [id number] Bone Cement With Gentamicin CEMENT Left: Lainey -[id number] / Implanted: Qty: 1 on 12/12/2015 by Osmel Teran MD at [facility] Knee 8 [id number] / [id number] Ez Derm Perforated Porcine Sheet 7inx 18in ([id number]) Mike ravi #[id number] - [id number] GRAFT Right: [facility] 01/22/2020 [id number] / Implanted: Qty: 1 on 04/15/2019 by Carl Arellano MD at [facility] Arm [id number] / [id number] Cr Tibial Bearing KNEE Left: [employer] 07/18/2020 1 [id number] / Implanted: Qty: 1 on 12/12/2015 by Osmel Teran MD at [facility] Knee 1 [id number] / [id number] Modular Tibial Locking Bar KNEE Left: [employer] [id number] / Implanted: Qty: 1 on 12/12/2015 by Osmel Teran MD at [facility] Knee 5 [id number] / [id number] Regenerex Primary Tibial Tray KNEE Left: [employer] 09/18/2025 [id number] / Implanted: Qty: 1 on 12/12/2015 by Osmel Teran MD at [facility] Knee 1 [id number] / [id number] Cr Femoral - Left KNEE Left: [employer] 02/18/2025 1 [id number] / Implanted: Qty: 1 on 12/12/2015 by Osmel Teran MD at [facility] Knee 3 [id number] / [id number] Series-A Standard Patella PATELLA Left: [employer] 08/2019 [id number] / Implanted: Qty: 1 on 12/12/2015 by Osmel Teran MD at [facility] Knee 2 [id number] / [id number] Modular Finned Stem Stem Left: [employer] 10/30/2025 [id number] / Implanted: Qty: 1 on 12/12/2015 by Osmel Teran MD at [facility] Knee 2 [id number] / [id number] documented as of this encounter Results Not on filedocumented in this encounter Visit Diagnoses Diagnosis Pain Generalized pain documented in this encounter Insurance Payer Benefit Plan / Subscriber ID Effective Dates Phone Addre ss Type Group WELLCARE MINDA WELLCARE MINDA [id number] 2016-Presen Medicare Adv PLUS PLUS CHOICE t HMO/POS ROD GARICA [id number] 2005-Presen Tric are t documented as of this encounter
--- OUTSIDE RECORDS SUMMARY | 2019-12-24 21:07 | XMS REPORT | Summary of Care ---
:1950 Author Organization [facility] - [facility] Address [address] [place] [address] Care Team Providers Name Role Phone Osmel Tristan MD Unavailable Jamaica Gonzalez PAC Unavailable Tatiana Keith Primary Care Provider Reason for Referral Radiology Services (Routine) Status Reason Specialty Diagnoses / Referred By Referred To Procedures Contact Contact New Request Diagnostic Diagnoses Pain Osmel Tristan Radiology Procedures XR KNEE <3 VW RIGHT MD Jean [address] [place] [address] [place] [address] Reason for Visit Reason Comments New Evaluation Rt knee pain (Routine) Status Reason Specialty Diagnoses / Referred By Referred To Procedures Contact Contact Closed ORT-ORTHOPAEDIC Diagnoses Results Osmel Tristan Craig SURGERY / Procedures CONSULT/REFERRAL ORTHOPAEDIC SURGERY FOLLOW-UP VISIT MD Jean Pena MD Orthopedic Surgery [address] [place] [phone] Phone: Fax: Encounter Details Date Type Department Care Team Description 12/10/2019 Office Visit [facility] Orthopaedic Tristan, Osmel L , Pain (Primary Dx) Surgery- Travis MELENDREZ [address], [address] [place] [address] [place] [address] [place], [place] [phone] Allergies No Known Allergiesdocumented as of this encounter (statuses as of 12/16/2019) Medications Medication Sig Dispensed Refills Start Date [...] as of this encounter (statuses as of 12/16/2019) Active Problems Problem Noted Date Febrile 04/13/2019 Burn 04/11/2019 Lumbar radiculopathy 12/12/2017 Total knee replacement status 12/12/2015 Left knee pain 08/04/2015 Left knee pain 06/16/2015 documented as of this encounter (statuses as of 12/16/2019) Social History Tobacco Use Types Packs/Day Years [...] of this encounter Last Filed Vital Signs Vital Sign Reading Time Taken Comments Blood Pressure 124/76 12/10/2019 3:09 PM CDT Pulse 94 12/10/2019 3:09 PM CDT Temperature - - Respiratory Rate - - Oxygen Saturation - - Inhaled Oxygen Concentration - - Weight 74 kg (163 lb 3.2 oz) 12/10/2019 3:09 PM CDT Height 160 cm (5' 3") 12/10/2019 3:09 PM CDT Body Mass Index 28.91 12/10/2019 3:09 PM CDT documented in this encounter Progress Notes Osmel Tristan MD - 12/10/2019 3:00 PM CDT Cc: Chief Complaint Patient presents with New Evaluation Rt knee pain X 6 months, no specific injury. No films. Came in wbat, no dme for assistance. Jodi Ballesteros 12/10/2019 3:18 PM Yadira Land is a 69 year old female. Knee Pain Incident onset: 6 months. The incident occurred at home. There was no injury mechanism. The pain is present in the right knee. The quality of the pain is described as aching, shooting and stabbing. Thepain is at a severity of 6/10. The pain is moderate. The pain has been worsening since onset. Associated symptoms include an inability to bear weight and a loss of motion. The symptoms are aggravated by movement and weight bearing. She has tried NSAIDs, non-weight bearing and rest for the symptoms. The treatment provided no relief. Allergies Yadira has No Known Allergies. Medications Outpatient Medications Prior to Visit Medication Sig Dispense Refill Diclofenac Sodium (VOLTAREN) 1 % gel Apply to area(s) 4 (four) times daily. 100 g 1 citalopram 10 mg tablet Take 10 mg by mouth daily. dapagliflozin (FARXIGA) 5 mg tablet Farxiga 5 mg tablet Take 1 tablet every day by oral route. lisinopril 10 mg tablet Take 10 mg by mouth daily. gabapentin 600 mg tablet Take 1 tablet by mouth 3 (three) times daily. 60 tablet 1 hydrOXYzine 25 mg tablet Take 1 tablet by mouth every 6 (six) hours as needed for Itching. 40 tablet 1 methylPREDNISolone (MEDROL, PURNIMA,) 4 mg tablets Take 21 tablets by mouth SEE- INSTRUCTIONS. followpackage directions 1 Each 0 gabapentin 300 mg capsule Take 1 capsule by mouth 3 (three) times daily. 30 capsule 0 LORazepam 0.5 mg tablet TAKE 1 TABLET BY MOUTH EVERY 12 HOURS NEEDED FOR ANXIETY 0 naproxen 500 mg tablet TAKE 1 TABLET WITH FOOD OR MILK NEEDED TWICE A DAY ORALLY 30 DAYS 1 terbinafine HCl 250 mg tablet Take 250 mg by mouth daily. 2 GLIMEPIRIDE ORAL Take 2 mg by mouth daily. insulin glargine (LANTUS U-100) 100 unit/mL injection inject 15 Units under the skin at bedtime. metFORMIN (GLUCOPHAGE) 1,000 mg tablet Take 1,000 mg by mouth 2 (two) times daily with meals. No facility-administered medications prior to visit. Histories Past Medical History: Diagnosis Date Allergic rhinitis Diabetes mellitus Left knee pain 08/04/2015 Past Surgical History: Procedure Laterality Date APPENDECTOMY SECTION 3X CHOLECYSTECTOMY MINOR BURN DEBRIDEMENT Right 04/15/2019 Surgeon: Carl Isbell MD; [facility] TOTAL KNEE ARTHROPLASTY Left 12/12/2015 Surgeon: Osmel Tristan MD; Location: [facility] OR Location XENOGRAFT APPLICATION Right 04/15/2019 Surgeon: Carl Isbell MD; Location: [facility] Social History Socioeconomic History Marital status: Spouse name: Not on file Number of children: Not on file Years of education: Not on file Highest education level: Not on file Occupational History Not on file Social Needs Financial resource strain: Not on file Food insecurity: Worry: Not on file Inability: Not on file Transportation needs: Medical: Not on file Non-medical: Not on file Tobacco Use Smoking status: Former Smoker Types: Cigarettes Smokeless tobacco: Never Used Tobacco comment: Occasional Smoker Substance and Sexual Activity Alcohol use: Not Currently Alcohol/week: 0.0 standard drinks Comment: Occasional Drinker Drug use: No Sexual activity: Never Lifestyle Physical activity: Days per week: Not on file Minutes per session: Not on file Stress: Not on file Relationships Social connections: Talks on phone: Not on file Gets together: Not on file Attends scientologist service: Not on file Active member of club or organization: Not on file Attends meetings of clubs or organizations: Not on file Relationship status: Not on file Intimate partner violence: Fear of current or ex partner: Not on file Emotionally abused: Not on file Physically abused: Not on file Forced sexual activity: Not on file Other Topics Concern Not on file Social History Narrative Merged History Encounter Family History Problem Relation Age of Onset Diabetes Mother Review of Systems Constitutional: Negative. HENT: Negative. Eyes: Negative. Respiratory: Negative. Breasts: Negative. Cardiovascular: Negative. Gastrointestinal: Negative. Genitourinary: Negative. Musculoskeletal: Positive for joint swelling. Skin: Negative. Neurological: Negative. Psychiatric/Behavioral: Negative. Endocrine: Endocrine negative Vital Signs BP 124/76 | Pulse 94 Physical Exam Musculoskeletal: Right knee: She exhibits decreased range of motion. Tenderness found. Medial joint line tenderness noted. General: Well-developed well-nourished oriented to person place and time HEENT normocephalic atraumatic atraumatic pupils equal round reactive to light extraocular muscles intact Cervical thoracic and lumbar spine without focal deficit normal kyphosis and lordosis Chest clear to auscultation and percussion Cardiovascular regular rate and rhythm without gallop rub or murmur soft without organomegaly Normal bowel sounds Neurologic: Focal myotome or dermatomal deficits Vascular: Intact symmetrical bilateral upper and lower extremities Skin without stasis varicosities or breakdown Extremities without cyanosis clubbing or edema Lymphatics no peripheral lymphedema Psych normal mood and affect. Neurovascular function is intact. To include brisk capillary refill warm pink skin active motor function and sensory function intact. Nursing note and vitals reviewed. Assessment/Plan Right knee osteoarthritis Patient's knee(s) is/are wearing out and will eventually need a total knee replacement but will takepreventative measures prior to discussing surgery. Will take this in a stepwise fashion first beginning with NSAIDs. Next would be a cortisone injection. A cortisone injection will only help with the inflammatory response. Cortisone injections will be given no less than 3 months in a 3 year time frame. Hymalecular weight hylaronic acid injection series would follow cortisone injections. If the response is well to the cortisone this is usually an indication of how one will respond to Hymalecular weight hylaronic injections. These injections are given once weekly to the affected knee for 3 weeks. This can give at least 6 months of relief in 3 out of 4 people. If these steps do not help the last option would be to have a total knee replacement. The Rehab department will reach out to discuss making an appointment for an informational session called Total Replacement Boot Camp. This does not mean you are ready for a total knee replacement, it's simply preparation should you eventually decide to have/need a joint replacement. Patient received an ultrasound guided injection of 1cc kenalog and 4cc lidocaine to the right knee. The knee was examined and the knee was marked with the needle In the middle of the lateral joint linejust lateral to the patellar tendon the knee was then prepped 3 times with Betadine in a Bullseye fashion and then once with alcohol allowing it to soak at least 20 seconds. Ultrasound guidance was used to direct the needle posterior to the fat pad and an injection was administered of 1 cc Kenalog with 4 cc 1% lidocaine without epinephrine without resistance. The skin was cleansed with alcohol and then dried with a sterile 4 x 4 and a sterile Band-Aid was applied patient tolerated procedure without d ifficulty. documented in this encounter Plan of Treatment Health [...] of this encounter Implants Implanted Type Area Newspaper Delivery Counselor Device Shelf Model / Identifier Expiration Serial / Date Lot Bone Cement With Gentamicin CEMENT Left: Lainey 1113-140- / Implanted: Qty: 1 on 12/12/2015 by Osmel Teran MD at [facility] Knee 8 [id number] / [id number] Bone Cement With Gentamicin CEMENT Left: Lainey 1113-140- / Implanted: Qty: 1 on 12/12/2015 by Osmel Teran MD at [facility] Knee 8 [id number] / [id number] Ez Derm Perforated Porcine Sheet 7inx 18in ([id number]) B trav #[id number] - [id number] GRAFT Right: [facility] 01/22/2020 [id number] / Implanted: Qty: 1 on 04/15/2019 by Carl Arellano MD at [facility] Arm [id number] / [id number] Cr Tibial Bearing KNEE Left: Biomet 07/18/2020 1 [id number] / Implanted: Qty: 1 on 12/12/2015 by Osmel Teran MD at [facility] Knee 1 [id number] / [id number] Modular Tibial Locking Bar KNEE Left: Biomet [id number] / Implanted: Qty: 1 on 12/12/2015 by Osmel Teran MD at [facility] Knee 5 [id number] / [id number] Regenerex Primary Tibial Tray KNEE Left: Biomet 09/18/2025 [id number] / Implanted: Qty: 1 on 12/12/2015 by Osmel Teran MD at [facility] Knee 1 [id number] / [id number] Cr Femoral - Left KNEE Left: Biomet 02/18/2025 1 [id number] / Implanted: Qty: 1 on 12/12/2015 by Osmel Teran MD at [facility] Knee 3 [id number] / [id number] Series-A Standard Patella PATELLA Left: Biomet 08/2019 [id number] / Implanted: Qty: 1 on 12/12/2015 by Osmel Teran MD at [facility] Knee 2 [id number] / [id number] Modular Finned Stem Stem Left: [employer] 10/30/2025 [id number] / Implanted: Qty: 1 on 12/12/2015 by Osmel Teran MD at [facility] Knee 2 [id number] / [id number] documented as of this encounter Results XR KNEE <3 VW RIGHT (12/10/2019 3:19 PM CDT) Specimen Narrative Performed At This result has an attachment that is no t available. Bone on bone osteoarthritis PACS Performing Organization Address City/State/Zipcode Phone Number PACS documented in this encounter Visit Diagnoses Diagnosis Pain - Primary Generalized pain documented in this encounter Insurance Payer Benefit Plan / Subscriber ID Effective Dates Phone Addre ss Type Group [facility] MINDA [facility] MINDA [id number] 2016-Presen Medicare Adv PLUS PLUS CHOICE t HMO/POS ROD GARCIA [id number] [facility] are t documented as of this encounter
--- OUTSIDE RECORDS SUMMARY | 2019-12-24 21:07 | XMS REPORT | Summary of Care ---
:1950 Author Organization [facility] - Health Address [address] [place] [address] Care Team Providers Name Role Phone Osmel Tristan MD Unavailable Jamaica Gonzalez Unavailable Tatiana Keith Primary Care Provider Encounter Details Date Type Department Care Team Description 12/10/2019 Orders Only [facility] Doctor Unassigned, No [address] [facility] [place] [address] [address] [place] [address] Allergies No Known Allergiesdocumented as of this encounter (statuses as of 12/10/2019) Medications Medication Sig Dispensed Refills Start Date [...] as of this encounter (statuses as of 12/10/2019) Active Problems Problem Noted Date Febrile 04/13/2019 Burn 04/11/2019 Lumbar radiculopathy 12/12/2017 Total knee replacement status 12/12/2015 Left knee pain 08/04/2015 Left knee pain 06/16/2015 documented as of this encounter (statuses as of 12/10/2019) Social History Tobacco Use Types Packs/Day Years [...] of this encounter Implants Implanted Type Area Supervisor Harvesting Device Shelf Model / Identifier Expiration Serial / Date Lot Bone Cement With Gentamicin CEMENT Left: Lainey [id number] / Implanted: Qty: 1 on 12/12/2015 by Osmel Teran MD at [facility] Knee 8 [id number] / [id number] Bone Cement With Gentamicin CEMENT Left: Lainey -1113-140-01 / Implanted: Qty: 1 on 12/12/2015 by Osmel Teran MD at [facility] Knee 8 [id number] / [id number] Ez Derm Perforated Porcine Sheet 7inx 18in ([id number]) [facility] #[id number] - [id number] GRAFT Right: [facility] 01/22/2020 [id number] / Implanted: Qty: 1 on 04/15/2019 by Carl Arellano MD at [facility] Arm [id number] / [id number] Cr Tibial Bearing KNEE Left: [employer]omet 07/18/2020 1 [id number] / Implanted: Qty: 1 on 12/12/2015 by Osmel Teran MD at [facility] Knee 1 93780 / [id number] Modular Tibial Locking Bar KNEE Left: Biomet [id number] / Implanted: Qty: 1 on 12/12/2015 by Osmel Teran MD at [facility] Knee 5 [id number] / [id number] Regenerex Primary Tibial Tray KNEE Left: [employer] 09/18/2025 [id number] / Implanted: Qty: 1 on 12/12/2015 by Osmel Teran MD at [facility] Knee 1 [id number] / [id number] Cr Femoral - Left KNEE Left: [employer] 02/18/2025 1 [id number] / Implanted: Qty: 1 on 12/12/2015 by Osmel Teran MD at [facility] Knee 3 [id number] / [id number] Series-A Standard Patella PATELLA Left: Biomet 08/2019 [id number] / Implanted: Qty: 1 on 12/12/2015 by Osmel Teran MD at [facility] Knee 2 [id number] / [id number] Modular Finned Stem Stem Left: [employer] 10/30/2025 [id number] / Implanted: Qty: 1 on 12/12/2015 by Osmel Teran MD at [facility] Knee 2 [id number] / [id number] documented as of this encounter Procedures Procedure Name Priority Date/Time Associated Diagnosis Comme nts ASSIGNMENT OF BENEFITS Routine 12/10/2019 3:06 PM CDT documented in this encounter Results Not on filedocumented in this encounter Insurance Payer Benefit Plan / Subscriber ID Effective Dates Phone Addre ss Type Group KIRILL PERLA [id number] 2016-Presen Medicare Adv PLUS PLUS CHOICE t HMO/POS ROD GARCIA [id number] 2005-[employer] are t documented as of this encounter
--- OUTSIDE RECORDS SUMMARY | 2019-12-24 21:08 | XMS REPORT | Summary of Care ---
:1950 Author Organization [facility] - [facility] Address [address] [place] [address] Care Team Providers Name Role Phone Osmel Tristan MD Unavailable Jamaica Gonzalez PAC Unavailable Tatiana Keith Primary Care Provider Reason for Referral Radiology Services (Routine) Status Reason Specialty Diagnoses / Referred By Referred To Procedures Contact Contact New Request Diagnostic Diagnoses Pain Osmel Tristan Radiology Procedures XR KNEE <3 VW RIGHT MD Jean [address] [place] [place] [address] Reason for Visit Reason Comments New Evaluation Rt knee pain (Routine) Status Reason Specialty Diagnoses / Referred By Referred To Procedures Contact Contact Closed ORT-ORTHOPAEDIC Diagnoses Results Osmel Tristan Craig SURGERY / Procedures CONSULT/REFERRAL ORTHOPAEDIC SURGERY FOLLOW-UP VISIT MD Jean Pena MD Orthopedic Surgery [address] [place] [phone] Phone: Fax: Encounter Details Date Type Department Care Team Description 12/10/2019 Office Visit [facility] Orthopaedic Tristan, Osmel L , Pain (Primary Dx) Surgery- Travis MELENDREZ [address], [address] [address] [place], [place] [phone] [address] [phone] Allergies No Known Allergiesdocumented as of this [...] Left 12/12/2015 Surgeon: Osmel Tristan MD; Location: [facility] OR Location XENOGRAFT APPLICATION Right 04/15/2019 Surgeon: Carl Isbell MD; Location: [facility] Social History Socioeconomic History Marital status: Spouse [...] file Gets together: Not on file Attends spiritism service: Not on file Active member of [...] of this encounter Implants Implanted Type Area Shoe Stitcher Odd Device Shelf Model / Identifier Expiration Serial / Date Lot Bone Cement With Gentamicin CEMENT Left: Lainey 1113-140- / Implanted: Qty: 1 on 12/12/2015 by Osmel Teran MD at [facility] Knee 8 [id number] / [id number] Bone Cement With Gentamicin CEMENT Left: Lainey 1113-140- / Implanted: Qty: 1 on 12/12/2015 by Osmel Teran MD at [facility] Knee 8 [id number] / [id number] Ez Derm Perforated Porcine Sheet 7inx 18in ([id number]) B trav #[id number] - [id number] GRAFT Right: [facility] 01/22/2020 [id number] / Implanted: Qty: 1 on 04/15/2019 by Carl Arellano MD at [facility] Arm [id number] / [id number] Cr Tibial Bearing KNEE Left: [employer]omet 07/18/2020 1 [id number] / Implanted: Qty: 1 on 12/12/2015 by Osmel Teran MD at [facility] Knee 1 48791 / [id number] Modular Tibial Locking Bar KNEE Left: Biomet [id number] / Implanted: Qty: 1 on 12/12/2015 by Osmel Teran MD at [facility] Knee 5 [id number] / [id number] Regenerex Primary Tibial Tray KNEE Left: [employer] 09/18/2025 [id number] / Implanted: Qty: 1 on 12/12/2015 by Osmel Teran MD at [facility] Knee 1 [id number] / [id number] Cr Femoral - Left KNEE Left: [employer] 02/18/2025 1 [id number] / Implanted: Qty: 1 on 12/12/2015 by Osmel Teran MD at [facility] Knee 3 [id number] / [id number] Series-A Standard Patella PATELLA Left: [employer]omet 08/2019 [id number] / Implanted: Qty: 1 on 12/12/2015 by Osmel Teran MD at [facility] Knee 2 [id number] / [id number] Modular Finned Stem Stem Left: [employer] 10/30/2025 [id number] / Implanted: Qty: 1 on 12/12/2015 by Osmel Teran MD at [facility] Knee 2 [id number] / [id number] documented as of this encounter Results XR [...] Effective Dates Phone Addre ss Type Group [facility] MINDA [facility] MINDA [id number] 2016-Presen Medicare Adv PLUS PLUS CHOICE t HMO/POS ROD GARCIA [id number] 2005[facility] are t documented as of this encounter
[2019-12-24] MEDS ORDERED: ACETAMINOPHEN 500 MG TAB ONE (21:57)
--- NOTE | 2019-12-24 23:33 | EDPHYS ---
Physician Documentation [facility] Name: Yadira Land Age: 69 yrs Sex: Female : 1950 Arrival Date: 12/24/2019 Time: 21:19 Bed 14 Private MD: ED Physician Ramin Easton HPI: 12/23 21:47 This 69 yrs old Female presents to ER via Wheelchair with complaints of Fever, rn Sore Throat. 21:47 The patient reports fever, that was measured at 103 degrees Fahrenheit. Onset: The rn symptoms/episode began/occurred 2 day(s) ago. Modifying factors: there are no obvious modifying factors. Severity of symptoms: At their worst the symptoms were mild in the emergency department the symptoms are unchanged. The patient has experienced similar episodes in the past. Reports went to [facility] recently, "got wet", now having fever and sore throat with mild cough for 2 days, reports decreased sense of taste. NO muscle aches/sob/chest pain/abd pain/diarrhea/vomiting.. Historical: - Allergies: 21:31 No Known Allergies; lp1 - Home Meds: 21:31 Farxiga 5 mg oral tab twice a day [Active]; hydroxyzine HCl 25 mg Oral tab 1 tab 4 lp1 times per day [Active]; citalopram 10 mg tab 1 tab once daily [Active]; meloxicam 7.5 mg oral tab 1 tab once daily [Active]; lisinopril 20 mg Oral tab 1 tab once daily [Active]; gabapentin 300 mg oral cap 1 cap 3 times per day [Active]; - PMHx: 21:31 Diabetes - NIDDM; lp1 - Immunization history:: Adult Immunizations up to date. - Social history:: Smoking status: Patient denies any tobacco usage or history of. - Family history:: not pertinent. - Hospitalizations: : No recent hospitalization is reported. ROS: 21:47 Constitutional: + fever Eyes: Negative for injury, pain, redness, and discharge, ENT: + rn sore throat Neck: Negative for injury, pain, and swelling, Cardiovascular: Negative for chest pain, palpitations, and edema, Respiratory: + cough, negative for sob Abdomen/GI: Negative for abdominal pain, nausea, vomiting, diarrhea, and constipation, Back: Negative for injury and pain, : Negative for injury, bleeding, discharge, and swelling, MS/Extremity: Negative for injury and deformity, Skin: Negative for injury, rash, and discoloration, Neuro: Negative for headache, weakness, numbness, tingling, and seizure. Exam: 21:47 Constitutional: This is a well developed, well nourished patient who is awake, alert, rn and in no acute distress. Head/Face: Normocephalic, atraumatic. Eyes: Pupils equal round and reactive to light, extra-ocular motions intact. Lids and lashes normal. Conjunctiva and sclera are non-icteric and not injected. Cornea within normal limits. Periorbital areas with no swelling, redness, or edema. ENT: No stridor Cardiovascular: Tachycardic, regular Respiratory: Speaking full sentences. No increased work of breathing, no retractions or nasal flaring. Abdomen/GI: soft, non-tender MS/ Extremity: Pulses equal, no cyanosis. Neurovascular intact. Full, normal range of motion. Equal circumference. Neuro: Awake and alert, GCS 15, ambulatory to room without difficulty. Vital Signs: 21:26 BP 153 / 86; Pulse 125; Resp 18; Temp 103.3(O); Pulse Ox 98% on R/A; Weight 68.04 kg lp1 (R); Height 5 ft. 3 in. (160.02 cm); Pain 0/10; 23:22 BP 110 / 60; Pulse 106; Resp 18; Temp 101.7; Pulse Ox 98% on R/A; mg2 21:26 Body Mass Index 26.57 (68.04 kg, 160.02 cm) lp1 MDM: 21:27 Patient medically screened. rn 23:29 Differential diagnosis: viral Infection, bacterial infection, URI, pneumonia. rn Differential diagnosis: COVID-19. Data reviewed: vital signs, nurses notes. Counseling: I had a detailed discussion with the patient and/or guardian regarding: the historical points, exam findings, and any diagnostic results supporting the discharge/admit diagnosis, lab results, radiology results, the need for outpatient follow up, to return to the emergency department if symptoms worsen or persist or if there are any questions or concerns that arise at home. Response to treatment: the patient's symptoms have mildly improved after treatment, and as a result, I will discharge patient. Special discussion: I discussed with the patient/guardian in detail that at this point there is no indication for admission to the hospital. It is understood, however, that if the symptoms persist or worsen the patient needs to return immediately for re-evaluation. ED course: Pt improved, fever coming down and HR responding appropriately to fever control, no oxygen requirement, no acute pneumonia on CXR, will dc home with abx given 3 day delay in COVID results/age/diabetic, for possible early pneumonia, but notified her could all be COVID. Return precautions given and understood. Told her that her illness just began and difficult to tell which patient are going to get better or worse this early in disease process. . 12/23 21:39 Order name: COVID-19 rn 12/23 21:39 Order name: Flu; Complete Time: 23:23 rn 12/23 21:39 Order name: CXR XRAY rn 12/23 21:39 Order name: Strep; Complete Time: 23:23 rn 12/23 23:09 Order name: Throat Culture EDPA 12/23 21:39 Order name: Droplet/Contact Precautions; Complete Time: 21:50 rn 12/23 21:39 Order name: Labs collected and sent; Complete Time: 21:50 rn 12/23 21:39 Order name: O2 Per Protocol; Complete Time: 21:50 rn Administered Medications: 21:57 Drug: Tylenol 1000 mg Route: PO; mg2 23:32 Follow up: Response: No adverse reaction; Temperature is decreased mg2 23:49 Drug: Decadron - Dexamethasone 10 mg {Note: given po.} Route: IVP; Site: Other; mg2 23:50 Follow up: Response: No adverse reaction; Medication administered at discharge. mg2 23:50 Drug: LevaQUIN 500 mg Route: PO; mg2 23:50 Follow up: Response: No adverse reaction; Medication administered at discharge. mg2 Disposition: 12/24/19 23:32 Discharged to Home. Impression: Fever, unspecified, Cough. - Condition is Stable. - Discharge Instructions: Fever, Adult, Community-Acquired Pneumonia, Adult, Cough, Adult, COVID-19. - Prescriptions for dexamethasone 6 mg Oral tablet - take 1 tablet by ORAL route once daily for 10 days; 10 tablet. Levaquin 500 mg Oral Tablet - take 1 tablet by ORAL route once daily for 7 days; 7 tablet. - Medication Reconciliation Form, Thank You Letter, Antibiotic Education, Prescription Opioid Use form. - Follow up: Private Physician; When: As needed; Reason: Recheck today's complaints, Re-evaluation by your physician. - Problem is new. - Symptoms have improved. Signatures: Dispatcher [employer] EDRamin Augustine MD MD rn Pena, Laura, RN RN lp1 Wander Morejon RN RN mg2 Corrections: (The following items were deleted from the chart) 23:52 23:32 12/24/2019 23:32 Discharged to Home. Impression: Fever, unspecified; Cough. mg2 Condition is Stable. Forms are Medication Reconciliation Form, Thank You Letter, Antibiotic Education, Prescription Opioid Use. Follow up: Private Physician; When: As needed; Reason: Recheck today's complaints, Re-evaluation by your physician. Problem is new. Symptoms have improved. rn
--- NOTE | 2019-12-24 23:33 | ER ---
Nurse's Notes [facility] Name: Yadira Land Age: 69 yrs Sex: Female : 1950 Arrival Date: 12/24/2019 Time: 21:19 Bed 14 Private MD: Diagnosis: Fever, unspecified;Cough Presentation: 12/23 21:26 Chief complaint: Patient states: Sore throat that began yesterday, temp of 100 today, lp1 Tylenol Extra strength x2 taken at 1730. Coronavirus screen: Client denies travel out of the [place] in the last 14 days. congestion, cough unrelated to allergies, fever, headache, runny nose, sore throat. Ebola Screen: No symptoms or risks identified at this time. Initial Sepsis Screen: Does the patient meet any 2 criteria? Temp <36.0*C (96.8*F)) or > 38.3*C (100.9*F). HR > 90 bpm. Does the patient have a suspected source of infection? Yes: Productive cough/pneumonia If YES to both, name of provider notified: Ramin Easton MD Risk Assessment: Do you want to hurt yourself or someone else? Patient reports no desire to harm self or others. Onset of symptoms was December 23, 2019. 21:26 Method Of Arrival: Wheelchair lp1 21:26 Acuity: KARSTEN 2 lp1 Historical: - Allergies: 21:31 No Known Allergies; lp1 - Home Meds: 21:31 Farxiga 5 mg oral tab twice a day [Active]; hydroxyzine HCl 25 mg Oral tab 1 tab 4 lp1 times per day [Active]; citalopram 10 mg tab 1 tab once daily [Active]; meloxicam 7.5 mg oral tab 1 tab once daily [Active]; lisinopril 20 mg Oral tab 1 tab once daily [Active]; gabapentin 300 mg oral cap 1 cap 3 times per day [Active]; - PMHx: 21:31 Diabetes - NIDDM; lp1 - Immunization history:: Adult Immunizations up to date. - Social history:: Smoking status: Patient denies any tobacco usage or history of. - Family history:: not pertinent. - Hospitalizations: : No recent hospitalization is reported. Screenin:42 Abuse screen: Denies threats or abuse. Denies injuries from another. Nutritional lp1 screening: No deficits noted. Tuberculosis screening: No symptoms or risk factors identified. 21:59 Fall Risk Gait- Weak (10 pts.). mg2 Assessment: 12/22 23:45 Respiratory: Breath sounds are clear. mg2 12/23 21:57 General: Appears in no apparent distress. comfortable, Behavior is calm, cooperative. mg2 Pain: Complains of pain in throat. Neuro: Level of Consciousness is awake, alert, obeys commands, Oriented to person, place, time, situation. Cardiovascular: Capillary refill < 3 seconds Patient's skin is warm and dry. Respiratory: Airway is patent Respiratory effort is even, unlabored, Respiratory pattern is regular, symmetrical. GI: No signs and/or symptoms were reported involving the gastrointestinal system. : No signs and/or symptoms were reported regarding the genitourinary system. EENT: Throat is reddened. Derm: Skin is intact, is healthy with good turgor, Skin is pink, warm \T\ dry. normal. Musculoskeletal: Circulation, motion, and sensation intact. Capillary refill < 3 seconds. 22:38 Reassessment: Vonda- [phone] daughter updated about the patient. mg2 Vital Signs: 21:26 BP 153 / 86; Pulse 125; Resp 18; Temp 103.3(O); Pulse Ox 98% on R/A; Weight 68.04 kg lp1 (R); Height 5 ft. 3 in. (160.02 cm); Pain 0/10; 23:22 BP 110 / 60; Pulse 106; Resp 18; Temp 101.7; Pulse Ox 98% on R/A; mg2 21:26 Body Mass Index 26.57 (68.04 kg, 160.02 cm) lp1 ED Course: 21:19 Patient arrived in ED. ag3 21:27 Ramin Easton MD is Attending Physician. rn 21:29 Triage completed. lp1 21:29 Arm band placed on left wrist. lp1 21:33 Wander Morejon, MAIKEL is Primary Nurse. mg2 21:37 ED physician to see patient. assessed the pt waiting for orders. ks7 21:58 Patient has correct armband on for positive identification. mg2 21:58 No provider procedures requiring assistance completed. Flu and/or RSV swab sent to lab. mg2 Strep swab sent to lab. covid swab sent. Patient did not have IV access during this emergency room visit. 22:06 CXR XRAY In Process Unspecified. EDMS Administered Medications: 21:57 Drug: Tylenol 1000 mg Route: PO; mg2 23:32 Follow up: Response: No adverse reaction; Temperature is decreased mg2 23:49 Drug: Decadron - Dexamethasone 10 mg {Note: given po.} Route: IVP; Site: Other; mg2 23:50 Follow up: Response: No adverse reaction; Medication administered at discharge. mg2 23:50 Drug: LevaQUIN 500 mg Route: PO; mg2 23:50 Follow up: Response: No adverse reaction; Medication administered at discharge. mg2 Outcome: 23:32 Discharge ordered by MD. rn 23:50 Discharged to home via wheelchair. mg2 23:50 Condition: stable 23:50 Discharge instructions given to patient, Instructed on discharge instructions, follow up and referral plans. medication usage, Demonstrated understanding of instructions, follow-up care, medications, Prescriptions given X 2. 23:52 Patient left the ED. mg2 Addendum: 12/27/2019 16:47 Addendum: COVID-19 Result: Positive result giiven to ED physician to notify pt. s s Physician: Miguel Contreras MD Physician was able to contact pt and pt was notified of positive COVID-19 swab result. Physician answered pt questions. Signatures: Dispatcher [employer] EDMS Ramin Easton MD MD rn Smirch, Shelby RN RN ss Mariana Vega RN RN lp1 Wander Morejon RN RN mg2 Clemencia [id number] Alana Garcia RN RN ks7
[2019-12-24] MEDS ORDERED: dexAMETHasone 10 MG/ML VIAL ONE (23:45)
[2019-12-24] MEDS ORDERED: levoFLOXacin 500 MG TAB ONE (23:45)
[2019-12-24 23:55] VITALS: O2SAT 98
[2019-12-24 23:57] VITALS: BP 110/60; TEMP 101.7
--- NOTE | 2019-12-25 07:53 | RAD REPORT ---
EXAM DESCRIPTION: Alec Single View12/24/2019 10:05 pm CLINICAL HISTORY: Cough COMPARISON: 2018 FINDINGS: Lungs probably are clear of acute infiltrate the. The heart is normal size IMPRESSION: No acute abnormalities displayed. If patient's symptoms persist PA and lateral chest se ivory would be recommended
== END 2019-12-24 23:52 | disposition home or self-care (01) ==
LOC: ER 21:03
DX: U07.1 COVID-19 (principal); R05 Cough; E11.9 Type 2 diabetes mellitus without complications
CPT/HCPCS: 87070; 87081; 87804 ×2; 71045; 96374; 99284; U0001; J1100

== ENCOUNTER 2020-01-01 21:25 | Emergency (ER) | payer OTHER ==
--- OUTSIDE RECORDS SUMMARY | 2020-01-01 21:28 | XMS REPORT | Continuity of Care Document ---
:1950 Author Organization [facility] t Address [address] [place] [address] Care Team Providers Name Role Phone Travis Chawla Attending Clinician Jean Tristan MD Attending Clinician Problems Condition Condition Condition Status Onset Resolution Last Treating Co mments Source Name Details Category Date Date Treatment Clinician Date Type 2 Type 2 Problem Active [facility] diabetes Diabetes 7-17 Family mellitus Mellitus 00:00: Practi c 00 e Diabetic Diabetic Problem Active 0 Holder ge peripheral Peripheral 7 Fa angel neuropathy Neuropathy 00:00: Pr actic 00 e Major Major Problem Active 0 [facility] depressive Depressive - Fa angel disorder Disorder 00:00: Practi c 00 e Essential Essential Problem Active 2019-0 Lgenn charo hypertensi Hypertensi 7-17 Fa angel on on 00:00: Practic 00 e Bilateral Bilateral Problem Active 2019-0 Glenn charo knee pain Knee Pain 7-17 Fami ly 00:00: Practic 00 e Trigger Trigger Problem Active [facility] finger[facility] finger, [facility] - left ring left ring Juan rico finger finger l [facility] Burn Burn Problem [facility] Right hand Right hand Problem Active [facility] pain pain [facility] Carpal Carpal Problem Active [facility] tunnel tunnel [facility] - syndrome syndrome Memori a on both on both l sides sides Outpati ent Clinics Uncontroll Uncontroll Problem Active [facility] ed type 2 ed type 2 Luke s - diabetes diabetes Memori a mellitus mellitus l with with Outpati hyperglyce hyperglyce en t [facility]ics Essential Essential Problem Active [facility] hypertensi hypertensi Safia kes - on on Memoria l [facility] Trigger Trigger Problem Active [facility] finger, finger, [facility] - unspecifie unspecifie Me moria d finger, d finger, l unspecifie unspecifie Ou tpati d d ent laterality laterality Cl inics Allergic Allergic Problem Active [facility] rhinitis rhinitis [facility] Depression Depression Problem Active [facility] with with [facility] Chronic Chronic Problem Active [facility] pain pain [facility] - syndrome syndrome Memori a l [facility] Seasonal Seasonal Problem Active [facility] allergies allergies [facility] - [facility]oria [facility] Vulvovagin Vulvovagin Problem Active [facility] itis itis [facility] Lipoma of Lipoma of Problem Active [facility] torso torso [facility] Screening Screening Problem Active [facility] for colon for colon Luke s - cancer cancer Memoria l [facility] Screening Screening Problem Active [facility] for breast for breast Safia kes - cancer cancer Memoria l [facility] Primary Primary Problem Active [facility] osteoarthr osteoarthr Safia kes - itis of itis of Memoria left hand left hand l [facility] Osteopenia Osteopenia Problem Active [facility] of hand, of hand, [facility] - unspecifie unspecifie Me morimikey d d l laterality laterality Ou tpati ent Clinics Diabetes Diabetes Problem Active [facility] mellitus, mellitus, Luke s - type 2 type 2 Memoria l [facility] Hospital Hospital Problem Active [facility] discharge discharge Luke s - follow-up follow-up Juan rico l [facility] Acute pain Acute pain Problem Active [facility] of right of right [facility] - knee knee Memoria l [facility] Effusion Effusion Problem Active [facility] of knee of knee [facility] - joint joint Memoria right right l [facility] Primary Primary Problem Active [facility] osteoarthr osteoarthr Safia kes - itis, itis, Memoria right hand right hand l [facility] Primary Primary Problem Active [facility] osteoarthr osteoarthr [facility] - itis itis Memoria involving involving l multiple multiple Outpat i joints joints ent Clinics Cough Cough Problem Active [facility] ent [facility] Common Common Problem Active [facility] cold virus cold virus [facility] ent [facility] Exposure Exposure Problem Active [facility] t to the flu to the flu [facility] ent [facility] Body aches Body aches Problem Active [facility] ent [facility] Allergies, Adverse Reactions, Alerts This patient has [...] 10-19 Millender [facility] - 00:00: Memoria 00 [facility] ent [facility] Meloxicam Meloxicam 2019- Yes Alicia 1-2 C HI 10-19 06-25 Millender tablets as Maricel es - 00:00: 00:00 needed for Memori a 00 :00 pain; take l with food [facility] or milk ent Clinics citalopram citalopram No 1 Q1D citalopram [facility] 10 mg 10 mg 10 mg Family tablet Take tablet Take tablet Practic 1 tablet 1 tablet Take 1 e every day every day tablet by oral by oral every day route. route. by oral route. gabapentin gabapentin No 1capsul BID gabapentin [facility] 300 mg 300 mg e(s) 300 mg Family capsule capsule capsule Practi c Take 1 Take 1 Take 1 e capsule capsule capsule twice a day twice a day twice a by oral by oral day by route. route. oral route. hydroxyzine hydroxyzine No 1 TID hydroxyzin [facility] HCl 25 mg HCl 25 mg e HCl 25 F amily tablet Take tablet Take mg tablet Practic 1 tablet 3 1 tablet 3 Take 1 e times a day times a day tablet 3 by oral by oral times a route as route as day by directed. directed. oral route as directed. lisinopril lisinopril No 1 Q1D lisinopril [facility] 20 mg 20 mg 20 mg Family tablet Take tablet Take tablet Practic 1 tablet 1 tablet Take 1 e every day every day tablet by oral by oral every day route. route. by oral route. Celexa Celexa Yes Alicia [address] Millender [facility] meloxicam meloxicam No 1 Q1D meloxicam [facility] 7.5 mg 7.5 mg 7.5 mg Family tablet Take tablet Take tablet Practic 1 tablet 1 tablet Take 1 e every day every day tablet by oral by oral every day route. route. by oral route. Acetaminoph Acetaminoph Yes Alicia [address] [facility] en-Codeine en-Codeine Millender as needed [facility] - #3 #3 Memoria l [facility] metformin metformin No 1 BID metformin [facility] 1,000 mg 1,000 mg 1,000 mg Fam mara tablet Take tablet Take tablet Practic 1 tablet 1 tablet Take 1 e twice a day twice a day tablet by oral by oral twice a route. route. day by oral route. Lisinopril Lisinopril Yes Alicia [address] [facility] Millender [facility] Melatonin Melatonin Yes Alicia [address] Millender at bedtime Luke s - as needed Memoria with food l [facility] Gabapentin Gabapentin Yes Alicia [address] [facility] Millender [facility] Diclofenac Diclofenac Yes Alicia TAKE [address] [facility] Sodium Sodium Millender TABLET BY L ukes - MOUTH Memoria TWICE A l DAY WITH [facility] Metformin Metformin Yes Alicia [address] HCl HCl Millender with meals [facility] - Memoria l [facility] Farxiga 5 Farxiga 5 No [...] nasal mcg/actuat spray,suspe spray,suspe ion nasal nsion Quanah nsion Quanah spray,susp 1 spray 1 spray ension twice a day twice a day Quanah 1 by by spray intranasal intranasal twice [...] a route. route. day by [facility] Alicia [address] 05 Millender [facility] - 00:00 Memoria :00 l Outpati ent Clinics Vital Signs Vital Name Observation Time Observation Value Comments Source Height 2019-12-11 00:00:00 63 [in_i] [facility] BMI (Body Mass 2019-12-11 00:00:00 28.9 kg/m2 [facility] Family Index) Practice Body Weight 2019-12-11 00:00:00 163 [lb_av] [facility] BP Diastolic 2018-11-14 00:00:00 83 mm[Hg] [facility] Height 2018-11-14 00:00:00 64 [in_i] [facility] BMI (Body Mass 2018-11-14 00:00:00 25.5 kg/m2 [facility] BP Systolic 2018-11-14 00:00:00 149 mm[Hg] [facility] Body Weight 2018-11-14 00:00:00 148.4 [lb_av] [facility] Procedures Procedure Date / Time Performed Performing Clinician Sour e TYMPANOMETRY 2018-11-14 00:00:00 [facility]end[facility] Cholecystectomy [facility] Plan of Care Planned Activity Planned Date Details Comments Source Future Appointment 2020-02-12 10:00:00 [facility] [address]; [address], [place] [address] Instructions [facility] Instructions [facility] Encounters Start End Encounter Admission Attending Care Care Encounter Source Date/Time Date/Time Type Type Clinicians Facility Department ID 2019-12-28 2019-12-28 RORY Knapp [id number] 00:00:00 00:00:00 [facility] [id number] Surgical [id number] Specialti [id number] es [address] [place] 2019-12-28 2019-12-28 [facility] [id number] 00:00:00 00:00:00 [facility] [id number] Surgical [id number] Specialti [id number] es [address] [place] 2019-12-23 2019-12-23 Outpatient [facility] [id number] 10:54:00 10:54:00 [facility] Medical [facility] 2019-12-11 2019-12-11 Prer[place] - [id number] V illage 00:00:00 00:00:00 [facility] mara jennings DIRECTOR OF THERAPY SERVICES: Medical - Practi c [address] [email or web address] [facility], [address] [address], [place] [address] , Ph. 2019-12-10 2019-12-10 [facility] [id number] 15:07:12 15:45:01 Visit [facility] [id number] Surgical [id number] Specialti [id number] es [address] [place] 2019-12-03 2019-12-03 [facility] [id number] 14:42:00 14:42:00 [facility] ent Clinics 2019-10-27 2019-10-27 [facility] [id number] 16:30:00 16:30:00 t [facility] and [facility] - and Joint Joint [facility] ent Clinics 2019-10-20 2019-10-20 [facility] [id number] 22:55:00 22:55:00 [facility] ent Clinics 2019-10-20 2019-10-20 [facility] [id number] 09:40:00 09:40:00 [facility] ent Clinics 2018-11-14 2018-11-14 [facility] [place] - [id number] [facility] 00:00:00 00:00:00 MD Tonya: [address] - [address], Otolaryngol [place], [facility] [place] [address] , Ph. Results Test Description Test Time Test Comments Results Result Comments Source tympanogram 2018-11-14 10:54:48 Test Item Value Reference Range Interpretation Comme nts Right (test code = Right) Type C Peak is on Left Left (test code = Left) Type B Curve [facility]
--- OUTSIDE RECORDS SUMMARY | 2020-01-01 21:28 | XMS REPORT ---
:1950 [facility] Care Team Providers Name Role Phone FedeAlicia [...] End Status Dosage System Date Date Celexa [facility] 22418787521 10 MG Orally Active 1 table t Once a day Acetaminophen- [facility] 25636999913 300-30 MG Active 1 t ablet Codeine #3 Orally every 4 as nee ded hrs Lisinopril [facility] 60748584754 20 MG Orally Active 1 ta blet Once a day Melatonin ND 77692880248 5 MG Orally Active 1 tabl et Once a day at bedtime as needed with food Gabapentin [facility] 86956100202 800 MG Orally Active 1 t ablet Three times daily Diclofenac [facility] 87921656879 75 MG Oral Active TAKE 1 Sodium TABLET BY MOUTH TWICE A DAY WITH MEALS Celexa [facility] 28190444103 10 MG Orally Active 1 table t Once a day Metformin HCl [facility] 83327385630 1000 MG Orally Active 1 tablet Twice a day with meals Farxiga [facility] 09147313790 5mg By Mouth October 19, Inactive 1 Daill2019 Januvia [facility] 65987964162 50 MG Orally October 19, Active 1 table t Once a day for 2019 diabetes Meloxicam [facility] 49013682221 7.5 MG Orally October 19October Active 1-2 Once a day; 2019, tablets as stop any OTC 2019 needed for NSAIDS pain; take with food or milk Results Name Result Date Reference Range Unit Abnormali ty Flag HEMOGLOBIN A1C ----A1C 8.6% [id number] Summary Purpose eClinicalWorks Submission
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
[2020-01-01] MEDS ORDERED: NA CHLORIDE 0.9% 1,000 ML ONE ×2 (21:55→23:30)
[2020-01-01] MEDS ORDERED: ONDANSETRON 4 MG/2 ML VIAL ONE (22:09)
[2020-01-01 22:18] LABS: Absolute Lymphocytes (CBC) 0.9 K/uL (0.7-4.9); Basophils % 0.2 % (0-1.3); Hematocrit 36.5 % (36.0-45.0); Lymphocytes % 7.2 % (15.3-44.8); MPV 9.9 fL (7.6-11.3); RBC Red Blood Cell Count 4.25 M/uL (3.86-4.86)
[2020-01-01 22:48] LABS: ALT/SGPT 19 U/L (12-78); AST/SGOT 10 U/L (15-37); Albumin 2.9 g/dL (3.4-5.0); Alkaline Phosphatase 74 U/L (45-117); BUN Blood Urea Nitrogen 31 mg/dL (7-18); Bicarbonate 24 mmol/L (21-32); Bilirubin Direct 0.1 mg/dL (0-0.2); Bilirubin Total 0.4 mg/dL (0.2-1.0); Lipase 76 U/L (73-393); Potassium 4.9 mmol/L (3.5-5.1); Protein, Total 8.1 g/dL (6.4-8.2); Sodium Level 132 mmol/L (136-145)
[2020-01-01 22:51] LABS: Glucose Level 594 mg/dL (74-106)
[2020-01-01 22:58] LABS: Blood Morphology Comment NOT SEEN (NOT SEEN); Platelet Estimate ADEQ
[2020-01-01 23:14] LABS: Urine Blood 1+ (NEG); Urine Glucose 2+ (NEG); Urine Protein 2+ (NEG); Urine Specific Gravity 1.015 (1.005-1.030)
[2020-01-01] MEDS ORDERED: INSULIN -REGULAR HUMAN 50 UNIT/0.5 ML ML ONE (23:30)
[2020-01-01] MEDS ORDERED: ACETAMINOPHEN 500 MG TAB ONE (23:37)
--- NOTE | 2020-01-02 00:50 | ER ---
Nurse's Notes [facility] Dieter Name: Yadira Land Age: 69 yrs Sex: Female : 1950 Arrival Date: 01/01/2020 Time: 21:32 Bed 19 Private MD: Diagnosis: Dehydration;Hyperglycemia, unspecified Presentation: 12/31 21:33 Chief complaint: EMS states: Pt tested for Covid Positive 5 days ago now with Nausea, wh vomiting and diarrhea for 3 days. Pt denies fever or any other symptoms. Coronavirus screen: Client presents with at least one sign or symptom that may indicate coronavirus-19. Standard/surgical mask placed on the client. Provider contacted for isolation considerations. Client reports previous positive COVID test result. Ebola Screen: Patient negative for fever greater than or equal to 101.5 degrees Fahrenheit, and additional compatible Ebola Virus Disease symptoms Patient denies exposure to infectious person. Initial Sepsis Screen: Does the patient meet any 2 criteria? HR > 90 bpm. Does the patient have a suspected source of infection? Yes: Other: Covid Positive. Risk Assessment: Do you want to hurt yourself or someone else? Patient reports no desire to harm self or others. Onset of symptoms was January 01, 2020. 21:33 Method Of Arrival: EMS: [facility] 21:33 Acuity: KARSTEN 3 21:41 Care prior to arrival: Glucose check: 578. Historical: - Allergies: 21:38 No Known Allergies; - Home Meds: 21:38 metformin 1,000 mg Oral tr24 2 tabs once daily [Active]; - PMHx: 21:38 Diabetes - NIDDM; Hypertension; - PSHx: 21:38 Cholecystectomy; Appendectomy; - Immunization history:: Adult Immunizations not up to date. - Social history:: Smoking status: Patient/guardian denies using. Screenin:40 Abuse screen: Denies threats or abuse. Denies injuries from another. Nutritional screening: No deficits noted. Tuberculosis screening: No symptoms or risk factors identified. Fall Risk None identified. Assessment: 21:40 General: Appears in no apparent distress. Behavior is calm, cooperative, appropriate for age. Pain: Denies pain. Neuro: Level of Consciousness is awake, alert, obeys commands, Oriented to person, place, time, situation, Appropriate for age. Cardiovascular: Heart tones S1 S2. Respiratory: Airway is patent Respiratory effort is even, unlabored, Respiratory pattern is regular, symmetrical, Breath sounds are clear bilaterally. GI: Abdomen is flat, non-distended, Bowel sounds present X 4 quads. Abd is soft and non tender X 4 quads. Reports diarrhea, nausea, vomiting. : No signs and/or symptoms were reported regarding the genitourinary system. EENT: No signs and/or symptoms were reported regarding the EENT system. Derm: Skin is intact, is healthy with good turgor, Skin is pink, warm \T\ dry. normal. Musculoskeletal: Circulation, motion, and sensation intact. 23:00 Reassessment: Patient appears in no apparent distress at this time. No changes from previously documented assessment. Patient and/or family updated on plan of care and expected duration. Pain level reassessed. Patient is alert, oriented x 3, equal unlabored respirations, skin warm/dry/pink. 01/01 00:05 Reassessment: Patient appears in no apparent distress at this time. No changes from previously documented assessment. Patient and/or family updated on plan of care and expected duration. Pain level reassessed. Patient is alert, oriented x 3, equal unlabored respirations, skin warm/dry/pink. 01:10 Reassessment: Patient appears in no apparent distress at this time. No changes from previously documented assessment. Patient and/or family updated on plan of care and expected duration. Pain level reassessed. Patient is alert, oriented x 3, equal unlabored respirations, skin warm/dry/pink. Patient states feeling better. Patient states symptoms have improved. Vital Signs: 12/31 21:33 BP 176 / 77; Pulse 105; Resp 18; Temp 96.8; Pulse Ox 96% ; Weight 68.04 kg; Height 5 wh ft. 5 in. (165.10 cm); 23:00 BP 159 / 72; Pulse 96; Resp 18; Pulse Ox 95% on R/A; 01/01 00:00 BP 150 / 83; Pulse 97; Resp 18; Pulse Ox 94% on R/A; 01:00 BP 142 / 77; Pulse 90; Resp 18; Pulse Ox 95% on R/A; 12/31 21:33 Body Mass Index 24.96 (68.04 kg, 165.10 cm) ED Course: 12/31 21:32 Patient arrived in ED. 21:33 Moe Roach MD is Attending Physician. 7 21:33 Helene Avendaño is Primary Nurse. 21:36 Triage completed. 21:38 [facility]abala [facility]-C [facility] kb 21:40 Arm band placed on right wrist. 21:41 Patient has correct armband on for positive identification. Bed in low position. Call light in reach. Side rails up X 1. Pulse ox on. NIBP on. 21:50 Inserted saline lock: 20 gauge in right antecubital area, using aseptic technique. Blood collected. 22:52 Notified Nurse Practitioner and/or Physician Radiology Special Procedure Tech of a critical lab result(s), jb4 Glucose of 594 Notified primary nurse of Critical Lab, Glucose of 594. 01/01 01:18 No provider procedures requiring assistance completed. IV discontinued, intact, bleeding controlled, No redness/swelling at site. Administered Medications: 12/31 22:02 Drug: NS 0.9% 1000 ml Route: IV; Rate: 1000 ml; Site: right antecubital; 22:59 Follow up: Response: No adverse reaction; IV Status: Completed infusion 22:04 Drug: Zofran (Ondansetron) 4 mg Route: IVP; Site: right antecubital; 23:00 Follow up: Response: No adverse reaction; Nausea is decreased 23:31 Drug: Insulin Regular Human 5 units {Co-Signature: [email or web address] (Misael Pizarro RN).} Route: IVP; Site: right antecubital; 01/01 00:15 Follow up: Response: No adverse reaction 00:16 Follow up: Response: Blood sugar is lowered 12/31 23:31 Drug: NS 0.9% 1000 ml Route: IV; Rate: 1000 ml; Site: right antecubital; 01/01 01:18 Follow up: Response: No adverse reaction; IV Status: Completed infusion 12/31 23:31 Drug: Tylenol 1000 mg Route: PO; 01/01 00:16 Follow up: Response: No adverse reaction; Pain is decreased Outcome: 00:50 Discharge ordered by . kb 01:19 Discharged to home via wheelchair, with family. 01:19 Condition: stable 01:19 Discharge instructions given to patient, family, Instructed on discharge instructions, follow up and referral plans. medication usage, POC Demonstrated understanding of instructions, follow-up care, medications, POC Prescriptions given X 1. 01:19 Patient left the ED. Signatures: Marian Zabala, QUALITY CONTROL MANAGER-C QUALITY CONTROL MANAGER-Ckb Misael Pizarro, RN RN [email or web address] Helene Avendaño Moe Roach MD MD [email or web address] Misael Pizarro RN [email or web address] Corrections: (The following items were deleted from the chart) 12/31 20:39 21:38 Home Meds: citalopram 10 mg tab 1 tab once daily; [facility] 21:38 Home Meds: Farxiga 5 mg Oral tab twice a day; [facility] 21:38 Home Meds: gabapentin 300 mg Oral cap 1 cap 3 times per day; [facility] 21:38 Home Meds: hydroxyzine HCl 25 mg Oral tab 1 tab 4 times per day; PRN; [facility] 21:38 Home Meds: lisinopril 20 mg Oral tab 1 tab once daily; [facility] 21:38 Home Meds: meloxicam 7.5 mg Oral tab 1 tab once daily; [facility]
--- NOTE | 2020-01-02 00:50 | EDPHYS ---
Physician Documentation [facility] Name: Yadira Land Age: 69 yrs Sex: Female : 1950 Arrival Date: 01/01/2020 Time: 21:32 Bed 19 Private MD: ED Physician Moe Roach HPI: 12/31 22:22 This 69 yrs old Female presents to ER via EMS with complaints of kb Nausea/Vomiting/Diarrhea, Covid Positive. 22:19 Pt reports she was tested for COVID a week ago and was positive. States she started kb having n/v/d 4 days ago and today her blood sugar was 600 so she came back to the ER. 22:22 The patient presents to the emergency department with nausea, vomiting, diarrhea. kb Onset: The symptoms/episode began/occurred 4 day(s) ago. Possible causes: COVID. The symptoms are aggravated by nothing. The symptoms are alleviated by nothing. Associated signs and symptoms: Pertinent positives: diarrhea, nausea, vomiting, high blood sugar. Severity of symptoms: At their worst the symptoms were moderate in the emergency department the symptoms are unchanged. The patient has not experienced similar symptoms in the past. The patient has been recently seen by a physician:. Historical: - Allergies: 21:38 No Known Allergies; - Home Meds: 21:38 metformin 1,000 mg Oral tr24 2 tabs once daily [Active]; - PMHx: 21:38 Diabetes - NIDDM; Hypertension; - PSHx: 21:38 Cholecystectomy; Appendectomy; - Immunization history:: Adult Immunizations not up to date. - Social history:: Smoking status: Patient/guardian denies using. ROS: 22:22 Constitutional: Negative for fever, chills, and weight loss, Cardiovascular: Negative kb for chest pain, palpitations, and edema, Respiratory: Negative for shortness of breath, cough, wheezing, and pleuritic chest pain, MS/Extremity: Negative for injury and deformity, Skin: Negative for injury, rash, and discoloration, Neuro: Negative for headache, weakness, numbness, tingling, and seizure. 22:22 Abdomen/GI: Positive for nausea, vomiting, and diarrhea, Negative for abdominal pain, constipation, abdominal cramps, abdominal distension, anorexia. Exam: 22:22 Constitutional: This is a well developed, well nourished patient who is awake, alert, kb and in no acute distress. Head/Face: Normocephalic, atraumatic. Chest/axilla: Normal chest wall appearance and motion. Nontender with no deformity. No lesions are appreciated. Cardiovascular: Regular rate and rhythm with a normal S1 and S2. No gallops, murmurs, or rubs. Normal PMI, no JVD. No pulse deficits. Respiratory: Lungs have equal breath sounds bilaterally, clear to auscultation and percussion. No rales, rhonchi or wheezes noted. No increased work of breathing, no retractions or nasal flaring. Abdomen/GI: Soft, non-tender, with normal bowel sounds. No distension or tympany. No guarding or rebound. No evidence of tenderness throughout. Skin: Warm, dry with normal turgor. Normal color with no rashes, no lesions, and no evidence of cellulitis. MS/ Extremity: Pulses equal, no cyanosis. Neurovascular intact. Full, normal range of motion. Neuro: Awake and alert, GCS 15, oriented to person, place, time, and situation. Cranial nerves II-XII grossly intact. Motor strength 5/5 in all extremities. Sensory grossly intact. Cerebellar exam normal. Normal gait. Vital Signs: 21:33 BP 176 / 77; Pulse 105; Resp 18; Temp 96.8; Pulse Ox 96% ; Weight 68.04 kg; Height 5 wh ft. 5 in. (165.10 cm); 23:00 BP 159 / 72; Pulse 96; Resp 18; Pulse Ox 95% on R/A; 01/01 00:00 BP 150 / 83; Pulse 97; Resp 18; Pulse Ox 94% on R/A; 01:00 BP 142 / 77; Pulse 90; Resp 18; Pulse Ox 95% on R/A; 12/31 21:33 Body Mass Index 24.96 (68.04 kg, 165.10 cm) MDM: 12/31 21:38 Patient medically screened. 22:23 Data reviewed: vital signs, nurses notes. Data interpreted: Pulse oximetry: on room air kb is 96 %. Interpretation: normal. 23:37 Physician consultation: Toan Mireles was contacted at 23:37, regarding admission, to the medical/surgical unit. patient's condition, does not recommend admission for this patient. Recommends hydration, decrease BGL to <500 and discharge with outpatient follow up. 01/01 00:49 Counseling: I had a detailed discussion with the patient and/or guardian regarding: the kb historical points, exam findings, and any diagnostic results supporting the discharge/admit diagnosis, lab results, the need for outpatient follow up, a family practitioner, to return to the emergency department if symptoms worsen or persist or if there are any questions or concerns that arise at home. 12/31 21:39 Order name: Basic Metabolic Panel kb 12/31 21:39 Order name: CBC with Diff kb 12/31 21:39 Order name: Hepatic Function kb 12/31 21:39 Order name: Lipase kb 12/31 21:39 Order name: Acetone, Serum kb 12/31 21:43 Order name: Glucose, Ancillary Testing; Complete Time: 21:49 EDMS 12/31 22:26 Order name: CBC with Automated Diff; Complete Time: 23:01 EDMS 12/31 22:51 Order name: Basic Metabolic Panel; Complete Time: 23:30 EDMS 12/31 22:51 Order name: Liver (Hepatic) Function; Complete Time: 23:30 EDMS 12/31 22:51 Order name: Lipase; Complete Time: 23:30 EDMS 12/31 22:58 Order name: Manual Differential; Complete Time: 23:01 EDMS 12/31 23:06 Order name: Urine Dipstick--Ancillary (enter results) tt3 12/31 23:14 Order name: Urine Dipstick-Ancillary; Complete Time: 23:14 EDMS 12/31 23:27 Order name: Acetone Level; Complete Time: 23:30 EDMS 12/31 21:39 Order name: IV Saline Lock; Complete Time: 22:04 kb 12/31 21:39 Order name: Labs collected and sent; Complete Time: 22:04 kb 12/31 21:39 Order name: Urine Dipstick-Ancillary (obtain specimen); Complete Time: 23:00 kb 12/31 21:39 Order name: Blood Glucose Level; Complete Time: 22:04 kb 01/01 00:03 Order name: Blood Glucose Level; Complete Time: 00:15 kb 01/01 00:27 Order name: Glucose, Ancillary Testing; Complete Time: 00:28 EDMS 01/01 00:28 Order name: PO challenge; Complete Time: 00:31 01/01 00:59 Order name: Glucose, Ancillary Testing; Complete Time: 01:10 EDRI Administered Medications: 12/31 22:02 Drug: NS 0.9% 1000 ml Route: IV; Rate: 1000 ml; Site: right antecubital; 22:59 Follow up: Response: No adverse reaction; IV Status: Completed infusion 22:04 Drug: Zofran (Ondansetron) 4 mg Route: IVP; Site: right antecubital; 23:00 Follow up: Response: No adverse reaction; Nausea is decreased 23:31 Drug: Insulin Regular Human 5 units {Co-Signature: [email or web address] (Misael Pizarro RN).} Route: IVP; Site: right antecubital; 01/01 00:15 Follow up: Response: No adverse reaction 00:16 Follow up: Response: Blood sugar is lowered 12/31 23:31 Drug: NS 0.9% 1000 ml Route: IV; Rate: 1000 ml; Site: right antecubital; 01/01 01:18 Follow up: Response: No adverse reaction; IV Status: Completed infusion 12/31 23:31 Drug: Tylenol 1000 mg Route: PO; 01/01 00:16 Follow up: Response: No adverse reaction; Pain is decreased Disposition: 05:07 Co-signature as Attending Physician, Moe Roach MD. 7 Disposition: 01/02/20 00:50 Discharged to Home. Impression: Dehydration, Hyperglycemia, unspecified. - Condition is Stable. - Discharge Instructions: Dehydration, Adult, [id number], Hyperglycemia, Mdms-to-[id number]. - Prescriptions for Zofran 4 mg Oral Tablet - take 1 tablet by ORAL route every 6 hours As needed; 20 tablet. - Medication Reconciliation Form, Thank You Letter, Antibiotic Education, Prescription Opioid Use form. - Follow up: Emergency Department; When: As needed; Reason: Worsening of condition. Follow up: Private Physician; When: 2 - 3 days; Reason: Recheck today's complaints, Continuance of care, Re-evaluation by your physician. Signatures: [facility] Marian Zabala, [employer]-Shashank Martin RN RN Helene Avendaño Moe Roach MD MD [facility] Misael Pizarro RN [email or web address] Corrections: (The following items were deleted from the chart) 12/31 21:39 21:38 Home Meds: citalopram 10 mg tab 1 tab once daily; [facility] :39 21:38 Home Meds: Farxiga 5 mg Oral tab twice a day; [facility] 21:39 21:38 Home Meds: gabapentin 300 mg Oral cap 1 cap 3 times per day; [facility] :39 21:38 Home Meds: hydroxyzine HCl 25 mg Oral tab 1 tab 4 times per day; PRN; [facility] 21:39 21:38 Home Meds: lisinopril 20 mg Oral tab 1 tab once daily; [facility] 21:39 21:38 Home Meds: meloxicam 7.5 mg Oral tab 1 tab once daily; [facility] 01/01 01:19 00:50 01/02/2020 00:50 Discharged to Home. Impression: Dehydration; Hyperglycemia, wh unspecified. Condition is Stable. Forms are Medication Reconciliation Form, Thank You Letter, Antibiotic Education, Prescription Opioid Use. Follow up: Emergency Department; When: As needed; Reason: Worsening of condition. Follow up: Private Physician; When: 2 - 3 days; Reason: Recheck today's complaints, Continuance of care, Re-evaluation by your physician. kb
[2020-01-02 01:32] VITALS: TEMP 96.8
[2020-01-02 01:36] VITALS: BP 142/77; O2SAT 95
== END 2020-01-02 01:19 | disposition home or self-care (01) ==
LOC: ER 21:25
DX: E86.0 Dehydration (principal); E11.65 Type 2 diabetes mellitus with hyperglycemia; I10 Essential (primary) hypertension
CPT/HCPCS: 96361; 85025; 80048; 36415; 82010; 82947 ×3; 80076; 81003; 83690; 96375; 96374; 99284; J7030 ×2; J2405

== ENCOUNTER 2020-01-04 10:59 | Inpatient (IN) | payer OTHER ==
[2020-01-04] MEDS ORDERED: ONDANSETRON 4 MG/2 ML VIAL ONE ×3 (11:33→17:39)
[2020-01-04] MEDS ORDERED: NA CHLORIDE 0.9% 500 ML ONE ×2 (11:33→12:29)
[2020-01-04] MEDS ORDERED: INSULIN -REGULAR HUMAN 50 UNIT/0.5 ML ML ONE (12:34)
[2020-01-04] MEDS ORDERED: NA CHLORIDE 0.9% 1,000 ML ONE ×2 (12:49→16:32)
--- NOTE | 2020-01-04 13:31 | RAD REPORT ---
EXAM DESCRIPTION: RAD - Chest Single View - 01/04/2020 1:24 pm CLINICAL HISTORY: SOB Chest pain. COMPARISON: Chest Single View dated 12/24/2019 FINDINGS: Portable technique limits examination quality. The lungs are grossly clear. The heart is normal in size. No displaced fractures. IMPRESSION: No acute intrathoracic process suspected.
[2020-01-04] MEDS ORDERED: INSULIN -REGULAR HUMAN 100 UNIT in NA CHLORIDE 0.9% 100 ML IV SCH ×2 (14:00→15:43)
--- OUTSIDE RECORDS SUMMARY | 2020-01-04 14:05 | XMS REPORT | Continuity of Care Document ---
:1950 Author Organization [facility] t Address [address] [place] [address] Care Team Providers Name Role Phone Unavailable Unavailable Unavailable Problems Condition Condition Condition Status Onset Resolution Last Treating Co mments Source Name Details Category Date Date Treatment Clinician Date Type 2 Type 2 Problem Active [facility] diabetes Diabetes 7-17 Family mellitus Mellitus 00:00: Practi c 00 e Diabetic Diabetic Problem Active Holder ge peripheral Peripheral 7-17 Fa angel neuropathy Neuropathy 00:00: Pr actic 00 e Major Major Problem Active [facility] depressive Depressive 7-17 Fa [facility] disorder Disorder 00:00: Practi c 00 e Essential Essential Problem Active Glenn charo hypertensi Hypertensi 7-17 Fa angel on on 00:00: Practic 00 e Bilateral Bilateral Problem Active Glenn hcaro knee pain Knee Pain 7-17 Fami ly 00:00: Practic 00 e Trigger Trigger Problem Active [facility] finger[facility] finger, [facility] - left ring left ring Juan rico finger finger l Outpati ent Clinics Burn Burn Problem [facility] Right hand Right hand Problem Active [facility] pain pain [facility] Carpal Carpal Problem Active [facility] tunnel tunnel [facility] - syndrome syndrome Memori a on both on both l sides sides Outpati ent Clinics Uncontroll Uncontroll Problem Active [facility] ed type 2 ed type 2 Luke s - diabetes diabetes Memori a mellitus mellitus l with with Outpati hyperglyce hyperglyce en t jean-paul je[facility] Clin[facility] Essential Essential Problem Active [facility] hypertensi hypertensi Safia kes - on on Memoria l Outpati ent Clinics Trigger Trigger Problem Active [facility] finger, finger, [facility] - unspecifie unspecifie Me moria d finger, d finger, l unspecifie unspecifie Ou tpati d d ent laterality laterality Cl inics Allergic Allergic Problem Active [facility] rhinitis rhinitis [facility] ent [facility] Depression Depression Problem Active [facility] with with [facility] Chronic Chronic Problem Active [facility] pain pain [facility] - syndrome syndrome Memori a l [facility] Seasonal Seasonal Problem Active [facility] allergies allergies [facility] - [facility] Vulvovagin Vulvovagin Problem Active [facility] itis itis [facility] - [facility] ent Clin[facility] Lipoma of Lipoma of Problem Active [facility] torso torso [facility] Screening Screening Problem Active [facility] for colon for colon Luke s - cancer cancer Memoria l [facility] Screening Screening Problem Active [facility] for breast for breast Safia kes - cancer cancer [facility] ent [facility] Primary Primary Problem Active [facility] osteoarthr osteoarthr Safia kes - itis of itis of Memoria left hand left hand l [facility] ent [facility] Osteopenia Osteopenia Problem Active [facility] of hand, of hand, [facility] - unspecifie unspecifie Me moria d d l laterality laterality Ou [facility] ent Clinics Diabetes Diabetes Problem Active [facility] mellitus, mellitus, Luke s - type 2 type 2 [facility] Hospital Hospital Problem Active [facility] discharge discharge Luke s - follow-up follow-up Juan rico l [facility] Acute pain Acute pain Problem Active [facility] of right of right [facility] - knee knee [facility] Effusion Effusion Problem Active [facility] of knee of knee [facility] - joint joint Memoria right right l [facility] ent Clinics Primary Primary Problem Active [facility] osteoarthr osteoarthr Safia kes - itis, itis, Memoria right hand right hand l [facility] ent Clinics Primary Primary Problem Active [facility] osteoarthr osteoarthr Safia kes - itis itis Memoria involving involving l multiple multiple Outpat i joints joints ent Clinics Cough Cough Problem Active [facility] ent Clinics Common Common Problem Active [facility] cold virus cold virus Safia kes - Memoria [facility] ent Clinics Exposure Exposure Problem Active [facility] to the flu to the flu Safia kes - Memoria l [facility] ent Clinics Body aches Body aches Problem Active [facility] ent Clinics Allergies, Adverse Reactions, Alerts This patient has [...] 10-19 Millender [facility] - 00:00: Memoria 00 l Outpati ent Clinics Meloxicam Meloxicam 2019- Yes Alicia 1-2 C HI 10-19 06-25 Millender tablets as Maricel es - 00:00: 00:00 needed for Memori a 00 :00 pain; take l with food Outpati or milk ent Clinics citalopram citalopram No 1 Q1D citalopram [facility] 10 mg 10 mg 10 mg Family tablet Take tablet Take tablet Practic 1 tablet 1 tablet Take 1 e every day every day tablet by oral by oral every day route. route. by oral route. gabapentin gabapentin No 1capsul BID gabapentin [facility] 300 mg 300 mg e(s) 300 mg Family capsule capsule capsule Practi c Take 1 Take 1 Take 1 e capsule capsule capsule twice a day twice a day twice a by oral by oral day by route. route. oral route. hydroxyzine hydroxyzine No 1 TID hydroxyzin [facility] HCl 25 mg HCl 25 mg e HCl 25 F amily tablet Take tablet Take mg tablet Practic 1 tablet 3 1 tablet 3 Take 1 e times a day times a day tablet 3 by oral by oral times a route as route as day by directed. directed. oral route as directed. lisinopril lisinopril No 1 Q1D lisinopril [facility] 20 mg 20 mg 20 mg Family tablet Take tablet Take tablet Practic 1 tablet 1 tablet Take 1 e every day every day tablet by oral by oral every day route. route. by oral route. meloxicam meloxicam No 1 Q1D meloxicam [facility] 7.5 mg 7.5 mg 7.5 mg Family tablet Take tablet Take tablet Practic 1 tablet 1 tablet Take 1 e every day every day tablet by oral by oral every day route. route. by oral route. metformin metformin No 1 BID metformin [facility] 1,000 mg 1,000 mg 1,000 mg [...] with meals Luke s - Memoria l Outpati ent Clinics [facility] 5 [facility] No [address] [facility] 5 [place] mg tablet mg tablet mg [...] nasal mcg/actuat spray,suspe spray,suspe ion nasal nsion Buchanan nsion [place]anan spray,susp 1 spray 1 spray ension twice a day twice a day [place]anan 1 by by spray intranasal intranasal twice [...] a route. route. day by oral route. [facility] 2019- No Alicia [address] [facility] [facility] 05-26 Millender [facility] - 00:00 Memoria :00 l Outpati ent Clinics Vital Signs Vital Name Observation Time Observation Value Comments Source Height 2019-12-11 00:00:00 63 [in_i] [facility] BMI (Body Mass 2019-12-11 00:00:00 28.9 kg/m2 [facility] Family Index) Practice Body Weight 2019-12-11 00:00:00 163 [lb_av] [facility] BP Diastolic 2018-11-14 00:00:00 83 mm[Hg] [facility] Height 2018-11-14 00:00:00 64 [in_i] [facility] BMI (Body Mass 2018-11-14 00:00:00 25.5 kg/m2 [facility] electroencephalograph technologist Medical Index) Group BP Systolic 2018-11-14 00:00:00 149 mm[Hg] [facility] Body Weight 2018-11-14 00:00:00 148.4 [lb_av] [facility] Procedures Procedure Date / Time Performed Performing Clinician Sour e TYMPANOMETRY 2018-11-14 00:00:00 [facility] Ch[facility] Plan of Care Planned Activity Planned Date Details Comments Source Future Appointment 2020-02-12 10:00:00 [facility] [address]; [address] [facility], [place] [address] Instructions [facility] Instructions [facility] Encounters Start End Encounter Admission Attending Care Care Encounter Source Date/Time Date/Time Type Type Clinicians Facility Department ID 2019-12-23 2019-12-23 Outpatient [facility] 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 2019-12-03 2019-12-03 [facility] [id number] 14:42:00 14:42:00 [facility] Medicine l Medicine Outpati ent Clinics 2019-10-27 2019-10-27 [facility] [id number] 16:30:00 16:30:00 [facility] ent Clinics 2019-10-20 2019-10-20 [facility] [id number] 22:55:00 22:55:00 [facility] ent Clinics 2019-10-20 2019-10-20 [facility] [id number] 09:40:00 09:40:00 [facility] 2018-11-14 2018-11-14 Declan [facility] [place] - [id number] [facility] 00:00:00 00:00:00 MD Tonya: [address] - [facility] [address], [facility] [address] , Ph. Results Test Description Test Time Test Comments Results Result Comments Source tympanogram 2018-11-14 10:54:48 Test Item Value Reference Range Interpretation Comme nts Right (test code = Right) Type C Peak is on Left Left (test code = Left) Type B Curve Flat [facility]
--- OUTSIDE RECORDS SUMMARY | 2020-01-04 14:06 | XMS REPORT ---
:1950 Author Organization [facility] Care Team Providers Name Role Phone FedeAlicia [...] End Status Dosage System Date Date Celexa [facility] [id number] 10 MG Orally Active 1 table t Once a day Acetaminophen- [facility] 06870282035 300-30 MG Active 1 t ablet Codeine #3 Orally every 4 as nee ded hrs Lisinopril [facility] 05824784790 20 MG Orally Active 1 ta blet Once a day Melatonin ND 46465795111 5 MG Orally Active 1 tabl et Once a day at bedtime as needed with food Gabapentin [facility] 76794647560 800 MG Orally Active 1 t ablet Three times daily Diclofenac [facility] 94413460064 75 MG Oral Active TAKE 1 Sodium TABLET BY MOUTH TWICE A DAY WITH MEALS Celexa [facility] 00073234220 10 MG Orally Active 1 table t Once a day Metformin HCl [facility] 59639948387 1000 MG Orally Active 1 tablet Twice a day with meals Farxiga [facility] 71697130647 5mg By Mouth October 19, Inactive 1 Daill2019 Januvia [facility] 70359776721 50 MG Orally October 19, Active 1 table t Once a day for 2019 diabetes Meloxicam [facility] 81869382633 7.5 MG Orally October 19October Active 1-2 Once a day; 2019, tablets as stop any OTC 2019 needed for NSAIDS pain; take with food or milk Results Name Result Date Reference Range Unit Abnormali ty Flag HEMOGLOBIN A1C ----A1C 8.6% [id number] Summary Purpose [employer] Submission
[2020-01-04] MEDS ORDERED: PIPER/TAZO/NS 3.375gm 3.375 GM/100 ML BAG ONE (14:20)
--- NOTE | 2020-01-04 14:47 | RAD REPORT ---
EXAM DESCRIPTION: CT - Abdomen Pelvis Wo Contrast - 01/04/2020 2:37 pm CLINICAL HISTORY: . Abdominal pain, clinical findings consistent with pancreatitis, recent COVID-19 positive test COMPARISON: CT-STONE PROTOCOL dated 09/18/2010 TECHNIQUE: Axial [address] imaging of the abdomen and pelvis was performed without IV contrast. No IV contrast was given because of allergy, abnormal renal function, patient refusal or physician re quest. No oral contrast administered. All CT scans are performed using dose optimization technique as appropriate and may include automated exposure control or mA/KV adjustment according to patient size. FINDINGS: No suspicious findings in the lung bases. Liver and spleen show no suspicious findings on noncontrast imaging. No CT findings for pancreatitis. No pancreatic or peripancreatic abnormality seen. Gallbladder is absent. No biliary tree dilatation. No hydronephrosis or suspicious renal mass. No significant adrenal finding. Isodense renal masses an d pyelonephritis cannot be excluded in the absence of IV contrast. The urinary bladder is without sig nificant finding. A 3.5 centimeter calcified fibroid projects from the left posterior margin of the u terus. No ovarian or adnexal suspicious finding. Fluid filled, nondilated stomach is present. No gastric wall thickening or mass. Small bowel and colo n show no suspicious findings. No free air, free fluid or inflammatory stranding. No hernia, mass or bulky lymphadenopathy. No suspicious bony findings. Image availability was delayed approximately 1 hour due to difficulties with the PACs and [employer] s ystems. IMPRESSION: Fluid-filled stomach with no gastric wall thickening or mass. No acute GI process or sig nificant finding otherwise noted. No CT findings for pancreatitis. Full assessment is limited is the absence of IV contrast.
[2020-01-04] MEDS ORDERED: HYDROMORPHONE HCL 0.5 MG/0.5 ML INJ IV PRN (15:33)
[2020-01-04] MEDS ORDERED: ONDANSETRON 4 MG/2 ML VIAL IV PRN ×2 (15:33→15:43)
--- NOTE | 2020-01-04 15:42 | P.HP ---
Certification for Inpatient Patient admitted to: Inpatient With expected LOS: >2 Midnights Patient will require the following post-hospital care: Home Health Services Practitioner: I am a practitioner with admitting privileges, knowledge of patient current condition, hospital course, and medical plan of care. Services: Services provided to patient in accordance with Admission requirements found in Title 42 Section 412.3 of the Code of Federal Regulations Patient History Date of Service: 01/04/20 Primary Care Provider: Inna Reason for admission: DKA, pancreatitis, covid History of Present Illness: Patient is a 69 year old woman. She told the staff that I was here PCP. She has yet to establish. However I would be happy to take care of her. She was in the hospital on 12/23 and was tested positive for covid. She came back a few days latter for nausea and vomiting. She is back today and was found to be in DKA with an elevated lipase. She states that she was not able to keep anything down for the past 4 days. This includes fluids and medications. She came in with a glucose greater than 500 on blood draw. Positve gap of 26. She had a negative CT scan of the abdomen. She is in some distress and not able to give a good history. She has a history of diabetes and back pain. Allergies NKDA Allergy (Uncoded 04/10/15 22:13) Unknown No Known Allergies Allergy (Uncoded 09/06/15 00:18) Unknown Home medications list reviewed: Yes Home Medications: Metformin HCl [Metformin ER Osmotic] 500 mg PO DAILY 04/13/13 Hydrocodone 10/APAP 325 [[place] 10/325] 1 tab PO Q6H PRN #20 tab 04/12/15 - Past Medical/Surgical History Diabetic: Yes -: NIDDM -: GERD -: HTN -: H-PYLORI -: HYPOXIA -: DYSPNEA(Mar) -: Shanae Kennedy -: Herminio 1980 -: mass removed- upper left side couple months ago -: GROWTH REMOVED FROM SKIN - Family History Father Notes: ulcers Mother -: Hypertension, Diabetes, Cancer Notes: stomach cancer - Social History Alcohol use: No CD- Drugs: No Caffeine use: Yes Review of Systems 10-point ROS is otherwise unremarkable Gastrointestinal: Nausea, Vomiting, Abdominal Pain Physical Examination - Physical Exam General: Alert, In no apparent distress HEENT: Atraumatic, PERRLA, Mucous membr. moist/pink, EOMI, Sclerae nonicteric Neck: Supple, 2+ carotid pulse no bruit, No LAD, Without JVD or thyroid abnormality Respiratory: Clear to auscultation bilaterally, Normal air movement Cardiovascular: Regular rate/rhythm, Normal S1 S2 Gastrointestinal: Normal bowel sounds, No ascites, Guarding Musculoskeletal: No tenderness Integumentary: No rashes Neurological: Normal gait, Normal speech, Normal strength at 5/5 x4 extr, Normal tone, Normal affect Lymphatics: No axilla or inguinal lymphadenopathy - Studies Laboratory Data (last 24 hrs) 01/04/20 13:10: Glucose 487 H* Assessment and Plan - Problems (Diagnosis) (1) DKA (diabetic ketoacidoses) Current Visit: Yes Status: Acute Plan: Patient is only on metformin. She has never been very well controlled. With the last know a1c being 9.9. Will put her in the unit and start the patient on fluids and iv insulin. Will monitor her potassium, phosphorus and mag. Keep her on replacement protochols. Will check her bmp Q4 hrs. Till she closes her gap and able to tolerate po. Will start her on protonix. Prn Zofran as well. Qualifiers: Diabetes mellitus type: type 2 Diabetes mellitus complication detail: without coma Qualified Code(s): E11.10 - Type 2 diabetes mellitus with ketoacidosis without coma (2) Pancreatitis, acute Current Visit: Yes Status: Acute Plan: May be secondary to the DKA. She has a history of a cholecystectomy. So most likely it is not gallstones. 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 She does use chronic hyrdocodone. (3) COVID-19 Current Visit: Yes Status: Acute Plan: Was positive 10 days ago. We are getting a rapid retesting. Will keep her in the ICU for covid patients and take all precautions till the result come back. (4) Chronic back pain Current Visit: Yes Status: Acute Plan: will treat chronically. At this point will put her on prn dilaudid. Once she is doing better will have her acessed by PT. Will see in the office if we can reduce her need for narcotics Qualifiers: Back pain location: back pain in unspecified location Back pain laterality: midline Qualified Code(s): M54.9 - Dorsalgia, unspecified; G89.29 - Other chronic pain Discharge Plan: Home - Advance Directives Does patient have a Living Will: No Does patient have a Durable POA for Healthcare: No - Code Status/Comfort Care Code Status Assessed: No Code Status: Full Code Physician Review: Patient Assessed, Agree with Above Assessment and Plan Critical Care: Yes Time Spent Managing Pts Care (In Minutes): 45
[2020-01-04] MEDS: NA CHLORIDE 0.9% 1,000 ML IV SCH (15:43)
[2020-01-04] MEDS: NACHLORIDE 0.45% 1,000 ML IV SCH ×3 (15:43→23:43)
[2020-01-04] MEDS ORDERED: NA CHLORIDE 0.9% 1,000 ML IV SCH (16:00)
[2020-01-04 16:18] LABS: C-Reactive Protein 35.9 mg/L (<3.00); Potassium 4.3 mmol/L (3.5-5.1)
[2020-01-04 16:19] VITALS: BMI 25.7
[2020-01-04] MEDS ORDERED: ENOXAPARIN 40 MG/0.4 ML SQ SCH (17:00)
[2020-01-04] MEDS: ONDANSETRON 4 MG/2 ML VIAL IV PRN (18:00)
[2020-01-04 18:11] LABS: Bilirubin Direct 0.2 mg/dL (0-0.2); Bilirubin Total 0.5 mg/dL (0.2-1.0); Protein, Total 8.3 g/dL (6.4-8.2)
[2020-01-04 18:12] LABS: Albumin 3.2 g/dL (3.4-5.0)
[2020-01-04 18:37] LABS: Absolute Lymphocytes (CBC) 1.5 K/uL (0.7-4.9); Basophils % 0.1 % (0-1.3); Hematocrit 39.9 % (36.0-45.0); Lymphocytes % 7.8 % (15.3-44.8); MPV 9.6 fL (7.6-11.3); RBC Red Blood Cell Count 4.54 M/uL (3.86-4.86)
[2020-01-04 20:26] LABS: Blood Morphology Comment NOT SEEN (NOT SEEN); Platelet Estimate ADEQ; Urine White Blood Cell Casts OK
[2020-01-04] MEDS: HYDRALAZINE HCL 20 MG/ML VIAL IV PRN (21:46)
[2020-01-04] MEDS: D5.45NS W/KCL 20MEQ 1,000 ML IV SCH ×2 (22:19→22:23)
[2020-01-04 23:31] LABS: Potassium 3.7 mmol/L (3.5-5.1)
[2020-01-05] MEDS: NA CHLORIDE 0.9% 1,000 ML IV SCH ×3 (01:00→20:31)
[2020-01-05 03:26] LABS: Magnesium 1.9 mg/dL (1.8-2.4); Phosphorus 1.7 mg/dL (2.5-4.9); Potassium 3.7 mmol/L (3.5-5.1)
[2020-01-05] MEDS: NACHLORIDE 0.45% 1,000 ML IV SCH (03:43)
[2020-01-05] MEDS: ONDANSETRON 4 MG/2 ML VIAL IV PRN ×4 (04:06→22:53)
[2020-01-05] MEDS: HYDRALAZINE HCL 20 MG/ML VIAL IV PRN ×4 (04:39→22:46)
[2020-01-05] MEDS: D5.45NS W/KCL 20MEQ 1,000 ML IV SCH (05:03)
[2020-01-05] MEDS ORDERED: PANTOPRAZOLE 40MG TABLET PO SCH (06:30)
--- NOTE | 2020-01-05 07:30 | P.PN ---
Subjective Date of Service: 01/05/20 Primary Care Provider: Inna Chief Complaint: DKA, pancreatitis, covid Subjective: Improving (gap has closed.) Review of Systems 10-point ROS is otherwise unremarkable Gastrointestinal: Nausea Physical Examination - Vital Signs Temperature: 97.1 F Blood Pressure: 139/72 Pulse: 118 Respirations: 18 Pulse Ox (%): 95 - Physical Exam General: Alert, In no apparent distress HEENT: Atraumatic, PERRLA, EOMI Neck: Supple, JVD not distended Respiratory: Clear to auscultation bilaterally, Normal air movement Cardiovascular: Regular rate/rhythm, Normal S1 S2 Gastrointestinal: Normal bowel sounds, No tenderness Musculoskeletal: No tenderness Integumentary: No rashes Neurological: Normal speech, Normal tone, Normal affect Lymphatics: No axilla or inguinal lymphadenopathy - Studies Laboratory Data (last 24 hrs) 01/04/20 14:50: Sodium 141, Potassium 4.3, BUN 35 H, Creatinine 1.25, Glucose 358 H 01/04/20 13:10: Glucose Cancelled 01/04/20 13:10: Glucose 487 H* 01/04/20 11:36: WBC 19.7 H D, Hgb 12.7, Hct 39.9, Plt Count 316 D 01/04/20 11:36: Sodium 136, Potassium 5.0, BUN 41 H, Creatinine 1.61 H, Glucose 579 H*, Total Bilirubin 0.5, AST 11 L, ALT 16, Alkaline Phosphatase 74, Lipase 1422 H Microbiology Data (last 24 hrs): 01/04/20 14:50 Blood - Blood Anaerobic Blood Culture - Final Assessment & Plan - Problems (Diagnosis) (1) DKA (diabetic ketoacidoses) Current Visit: Yes Status: Acute Plan: Patient is only on metformin. She has never been very well controlled. With the last know a1c being 9.9. Will put her in the unit and start the patient on fluids and iv insulin. Will monitor her potassium, phosphorus and mag. Keep her on replacement protochols. Will check her bmp Q4 hrs. Till she closes her gap and able to tolerate po. Will start her on protonix. Prn Zofran as well. 01/04 Will switch her to subcutaneous insulin. Will try feeding her. Switch the fluids back to N saline. Qualifiers: Diabetes mellitus type: type 2 Diabetes mellitus complication detail: with out coma Qualified Code(s): E11.10 - Type 2 diabetes mellitus with ketoacidosis without coma (2) Pancreatitis, acute Current Visit: Yes Status: Acute Plan: May be secondary to the DKA. She has a history of a cholecystectomy. So most likely it is not gallstones. 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 She does use chronic hyrdocodone. (3) COVID-19 Current Visit: Yes Status: Acute Plan: Was positive 10 days ago. We are getting a rapid retesting. Will keep her in the ICU for covid patients and take all precautions till the result come back. (4) Chronic back pain Current Visit: Yes Status: Acute Plan: will treat chronically. At this point will put her on prn dilaudid. Once she is doing better will have her acessed by PT. Will see in the office if we can reduce her need for narcotics Qualifiers: Back pain location: back pain in unspecified location Back pain laterality: midline Qualified Code(s): M54.9 - Dorsalgia, unspecified; G89.29 - Other chronic pain Discharge Plan: Home Plan to discharge in: 72 Hours - Code Status/Comfort Care Code Status Assessed: No Physician Review: Patient Assessed, Agree with Above Assessment and Plan Critical Care: Yes Time Spent Managing Pts Care (In Minutes): 25
[2020-01-05] MEDS ORDERED: HYDROMORPHONE HCL 0.5 MG/0.5 ML INJ IV PRN (07:31)
[2020-01-05] MEDS ORDERED: D50W 25 GM/50 ML SYRINGE/VIAL IV PRN (07:32)
[2020-01-05] MEDS ORDERED: GLUCAGON 1 MG/VIAL IM PRN (07:32)
[2020-01-05] MEDS ORDERED: INSULIN GLARGINE 100 UNITS/ML SQ SCH (08:00)
[2020-01-05] MEDS: ACETAMINOPHEN 500 MG TAB PO PRN (08:05)
[2020-01-05] MEDS ORDERED: CLONIDINE 0.1 MG/PATCH TD SCH (09:00)
[2020-01-05] MEDS: INSULIN -REGULAR HUMAN 50 UNIT/0.5 ML ML SQ SCH ×3 (11:57→20:33)
--- NOTE | 2020-01-05 12:25 | P.PN ---
Date of Service: 01/05/20 1. HTN. Have started her on catapress tts1 yesterday. Will switch the patient to lisinopril. If the patient is tolerating orals and the creatine recovers 2. No current creatine. Will reorder labs before starting and ACEI. We should see if her acute renal failure resolves.
[2020-01-05] MEDS ORDERED: CLONIDINE 0.2 MG/PATCH TD SCH (17:00)
[2020-01-05] MEDS: ENOXAPARIN 40 MG/0.4 ML SQ SCH (17:03)
[2020-01-06] MEDS: HYDRALAZINE HCL 20 MG/ML VIAL IV PRN ×2 (05:18→16:21)
[2020-01-06] MEDS: ONDANSETRON 4 MG/2 ML VIAL IV PRN ×2 (05:19→11:50)
[2020-01-06 05:26] LABS: Basophils % 0.2 % (0-1.3); Hematocrit 32.1 % (36.0-45.0); Lymphocytes % 13.8 % (15.3-44.8); MPV 8.4 fL (7.6-11.3); RBC Red Blood Cell Count 3.84 M/uL (3.86-4.86)
[2020-01-06 05:58] LABS: Albumin 2.4 g/dL (3.4-5.0); Bilirubin Total 0.6 mg/dL (0.2-1.0); Potassium 3.1 mmol/L (3.5-5.1); Thyroid Stimulating Hormone 0.348 uIU/mL (0.360-3.740)
[2020-01-06 06:24] LABS: Platelet Estimate ADEQ
[2020-01-06 06:25] LABS: Blood Morphology Comment NOT SEEN (NOT SEEN)
[2020-01-06] MEDS: PANTOPRAZOLE 40MG TABLET PO SCH (06:41)
[2020-01-06 06:44] LABS: Magnesium 1.9 mg/dL (1.8-2.4); Phosphorus 1.7 mg/dL (2.5-4.9)
[2020-01-06] MEDS: INSULIN -REGULAR HUMAN 50 UNIT/0.5 ML ML SQ SCH ×4 (08:51→21:16)
[2020-01-06] MEDS: INSULIN GLARGINE 100 UNITS/ML SQ SCH (08:52)
[2020-01-06] MEDS ORDERED: POTASSIUM CL SA 10 MEQ TAB PO ONE (09:00)
[2020-01-06] MEDS ORDERED: POTASSIUM PHOS IN 0.9 % NACL 15 MMOL/250 ML BAG IV ONE (09:00)
[2020-01-06] MEDS: NA CHLORIDE 0.9% 1,000 ML IV SCH ×3 (09:08→23:41)
--- NOTE | 2020-01-06 09:48 | P.PN ---
Subjective Date of Service: 01/06/20 Primary Care Provider: Inna Chief Complaint: DKA, pancreatitis, covid Subjective: Improving (Is having some nausea. Was able to tolerate some soup) Review of Systems 10-point ROS is otherwise unremarkable Gastrointestinal: Nausea Physical Examination - Vital Signs Temperature: 96.9 F Blood Pressure: 137/57 Pulse: 115 Respirations: 18 Pulse Ox (%): 96 - Physical Exam General: Alert, In no apparent distress HEENT: Atraumatic, PERRLA, EOMI Neck: Supple, JVD not distended Respiratory: Clear to auscultation bilaterally, Normal air movement Cardiovascular: Regular rate/rhythm, Normal S1 S2 Gastrointestinal: Normal bowel sounds, No tenderness Musculoskeletal: No tenderness Integumentary: No rashes Neurological: Normal speech, Normal tone, Normal affect Lymphatics: No axilla or inguinal lymphadenopathy - Studies Microbiology Data (last 24 hrs): 01/04/20 14:50 Blood - Blood Anaerobic Blood Culture - Final Assessment & Plan - Problems (Diagnosis) (1) DKA (diabetic ketoacidoses) Current Visit: Yes Status: Acute Plan: Patient is only on metformin. She has never been very well controlled. With the last know a1c being 9.9. Will put her in the unit and start the patient on fluids and iv insulin. Will monitor her potassium, phosphorus and mag. Keep her on replacement protochols. Will check her bmp Q4 hrs. Till she closes her gap and able to tolerate po. Will start her on protonix. Prn Zofran as well. 01/05 Will continue advancing the diet She is off the insulin drip and on subcut lantus Will restart the metformin. Qualifiers: Diabetes mellitus type: type 2 Diabetes mellitus complication detail: without coma Qualified Code(s): E11.10 - Type 2 diabetes mellitus with ketoacidosis without coma (2) Pancreatitis, acute Current Visit: Yes Status: Acute Plan: May be secondary to the DKA. She has a history of a cholecystectomy. So most likely it is not gallstones. 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 She does use chronic hyrdocodone. 01/05 Will recheck lipase (3) COVID-19 Current Visit: Yes Status: Acute Plan: Was positive 10 days ago. We are getting a rapid retesting. Will keep her in the ICU for covid patients and take all precautions till the result come back. 01/05 Will avoid the steroids as we dont want to worsen diabetes She is still positi ve. However is not symptomatic. (4) Chronic back pain Current Visit: Yes Status: Acute Plan: will treat chronically. At this point will put her on prn dilaudid. Once she is doing better will have her acessed by PT. Will see in the office if we can reduce her need for narcotics Qualifiers: Back pain location: back pain in unspecified location Back pain laterality: midline Qualified Code(s): M54.9 - Dorsalgia, unspecified; G89.29 - Other chronic pain Discharge Plan: Home Plan to discharge in: 48 Hours - Code Status/Comfort Care Code Status Assessed: No Physician Review: Patient Assessed, Agree with Above Assessment and Plan Critical Care: Yes Time Spent Managing Pts Care (In Minutes): 20
[2020-01-06] MEDS: ENOXAPARIN 40 MG/0.4 ML SQ SCH (17:11)
[2020-01-07] MEDS: ACETAMINOPHEN 500 MG TAB PO PRN ×2 (01:30→23:41)
[2020-01-07] MEDS: PANTOPRAZOLE 40MG TABLET PO SCH (05:43)
[2020-01-07] MEDS: HYDRALAZINE HCL 20 MG/ML VIAL IV PRN (06:00)
[2020-01-07] MEDS: ONDANSETRON 4 MG/2 ML VIAL IV PRN ×3 (06:00→21:25)
[2020-01-07] MEDS: NA CHLORIDE 0.9% 1,000 ML IV SCH ×3 (06:01→21:11)
[2020-01-07 07:14] LABS: Absolute Lymphocytes (CBC) 2.1 K/uL (0.7-4.9); Basophils % 0.7 % (0-1.3); Hematocrit 31.9 % (36.0-45.0); Lymphocytes % 16.8 % (15.3-44.8); MPV 8.9 fL (7.6-11.3); RBC Red Blood Cell Count 3.82 M/uL (3.86-4.86)
[2020-01-07 07:28] LABS: ALT/SGPT 13 U/L (12-78); AST/SGOT 15 U/L (15-37); Albumin 2.4 g/dL (3.4-5.0); Alkaline Phosphatase 49 U/L (45-117); BUN Blood Urea Nitrogen 10 mg/dL (7-18); Bicarbonate 25 mmol/L (21-32); Bilirubin Total 0.7 mg/dL (0.2-1.0); Glucose Level 177 mg/dL (74-106); Magnesium 1.6 mg/dL (1.8-2.4); Phosphorus 1.7 mg/dL (2.5-4.9); Potassium 3.1 mmol/L (3.5-5.1); Protein, Total 5.8 g/dL (6.4-8.2); Sodium Level 139 mmol/L (136-145)
[2020-01-07] MEDS: INSULIN -REGULAR HUMAN 50 UNIT/0.5 ML ML SQ SCH ×4 (07:30→19:55)
[2020-01-07] MEDS ORDERED: MAGNESIUM SULFATE 1 gm IVPB 1 GM/100 ML BAG IV ONE (08:16)
[2020-01-07] MEDS ORDERED: POTASSIUM CL SA 10 MEQ TAB PO ONE (08:16)
[2020-01-07] MEDS: DOCUSATE NA 100 MG CAP PO SCH ×2 (09:06→19:41)
[2020-01-07] MEDS: INSULIN GLARGINE 100 UNITS/ML SQ SCH (09:06)
--- NOTE | 2020-01-07 09:41 | P.PN ---
Subjective Date of Service: 01/07/20 Primary Care Provider: Inna Chief Complaint: DKA, pancreatitis, covid Subjective: No new changes Review of Systems Gastrointestinal: Nausea, Constipation Physical Examination - Vital Signs Temperature: 98 F Blood Pressure: 144/80 Pulse: 101 Respirations: 14 Pulse Ox (%): 95 - Physical Exam General: Alert, In no apparent distress HEENT: Atraumatic, PERRLA, EOMI Neck: Supple, JVD not distended Respiratory: Clear to auscultation bilaterally, Normal air movement Cardiovascular: Regular rate/rhythm, Normal S1 S2 Gastrointestinal: Normal bowel sounds, No tenderness Musculoskeletal: No tenderness Integumentary: No rashes Neurological: Normal speech, Normal tone, Normal affect Lymphatics: No axilla or inguinal lymphadenopathy - Studies Microbiology Data (last 24 hrs): 01/04/20 14:50 Clean Catch Urine [place] Count - Final BETWEEN 10,000 & 100,000 CFU/ML 01/04/20 14:50 Clean Catch Urine - Final MIXED ISHAN. Assessment & Plan - Problems (Diagnosis) (1) COVID-19 Current Visit: Yes Status: Acute Plan: Was positive 10 days ago. We are getting a rapid retesting. Will keep her in the ICU for covid patients and take all precautions till the result come back. 01/05 Will avoid the steroids as we dont want to worsen diabetes She is still positive. However is not symptomatic. (2) Protein-energy malnutrition Current Visit: Yes Status: Acute Plan: Patient has been bed bound and constipation since admission. We have ordered PT. However getting active PT in a covid unit is proving difficult. Qualifiers: Protein-calorie malnutrition severity: moderate Qualified Code(s): E44.0 - Moderate protein-calorie malnutrition (3) Chronic back pain Current Visit: Yes Status: Acute Plan: will treat chronically. At this point will put her on prn dilaudid. Once she is doing better will have her acessed by PT. Will see in the office if we can reduce her need for narcotics Qualifiers: Back pain location: back pain in unspecified location Back pain laterality: midline Qualified Code(s): M54.9 - Dorsalgia, unspecified; G89.29 - Other chronic pain (4) DKA (diabetic ketoacidoses) Current Visit: Yes Status: Resolved Plan: Patient is only on metformin. She has never been very well controlled. With the last know a1c being 9.9. Will put her in the unit and start the patient on fluids and iv insulin. Will monitor her potassium, phosphorus and mag. Keep her on replacement protochols. Will check her bmp Q4 hrs. Till she closes her gap and able to tolerate po. Will start her on protonix. Prn Zofran as well. 01/05 Will continue advancing the diet She is off the insulin drip and on subcut lantus Will restart the metformin. Qualifiers: Diabetes mellitus type: type 2 Diabetes mellitus complication detail: without coma Qualified Code(s): E11.10 - Type 2 diabetes mellitus with ketoacidosis without coma (5) Constipation Current Visit: Yes Status: Acute Plan: will start her on colace and have the nursing staff ambulate the patient. Will need to get her more mobile before discharge. she is covid positive getting her home health would be difficult. Would want to not to send her home. If she is still bed bound Qualifiers: Constipation type: unspecified constipation type Qualified Code(s): K59.00 - Constipation, unspecified (6) Pancreatitis, acute Current Visit: Yes Status: Resolved Plan: May be secondary to the DKA. She has a history of a cholecystectomy. So most likely it is not gallstones. 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 She does use chronic hyrdocodone. 01/05 Will recheck lipase Discharge Plan: Home Plan to discharge in: 24 Hours - Code Status/Comfort Care Code Status Assessed: No Physician Review: Patient Assessed, Agree with Above Assessment and Plan Critical Care: No Time Spent Managing Pts Care (In Minutes): 25
[2020-01-07] MEDS ORDERED: POTASSIUM PHOS IN 0.9 % NACL 15 MMOL/250 ML BAG IV ONE (10:30)
[2020-01-07] MEDS: ENOXAPARIN 40 MG/0.4 ML SQ SCH (16:53)
[2020-01-08] MEDS: PANTOPRAZOLE 40MG TABLET PO SCH (05:57)
[2020-01-08 07:17] LABS: Absolute Lymphocytes (CBC) 2.3 K/uL (0.7-4.9); Basophils % 0.3 % (0-1.3); Hematocrit 28.5 % (36.0-45.0); Lymphocytes % 23.2 % (15.3-44.8); MPV 9.2 fL (7.6-11.3); RBC Red Blood Cell Count 3.41 M/uL (3.86-4.86)
[2020-01-08] MEDS: INSULIN -REGULAR HUMAN 50 UNIT/0.5 ML ML SQ SCH ×4 (07:30→20:23)
[2020-01-08 07:31] LABS: ALT/SGPT 12 U/L (12-78); AST/SGOT 18 U/L (15-37); Albumin 2.2 g/dL (3.4-5.0); Alkaline Phosphatase 41 U/L (45-117); BUN Blood Urea Nitrogen 7 mg/dL (7-18); Bicarbonate 29 mmol/L (21-32); Bilirubin Total 0.6 mg/dL (0.2-1.0); Glucose Level 88 mg/dL (74-106); Magnesium 1.8 mg/dL (1.8-2.4); Potassium 3.1 mmol/L (3.5-5.1); Protein, Total 5.3 g/dL (6.4-8.2); Sodium Level 140 mmol/L (136-145)
[2020-01-08] MEDS: INSULIN GLARGINE 100 UNITS/ML SQ SCH (07:52)
[2020-01-08] MEDS: DOCUSATE NA 100 MG CAP PO SCH ×2 (07:52→20:22)
[2020-01-08] MEDS: ONDANSETRON 4 MG/2 ML VIAL IV PRN (07:52)
[2020-01-08] MEDS: NA CHLORIDE 0.9% 1,000 ML IV SCH ×2 (07:53→20:24)
[2020-01-08] MEDS ORDERED: POLYETHYL GLY 3350 17 GM/DOSE PO PRN (08:01)
--- NOTE | 2020-01-08 08:01 | P.PN ---
Subjective Date of Service: 01/08/20 Primary Care Provider: Inna Chief Complaint: DKA, pancreatitis, covid Subjective: No new changes Review of Systems 10-point ROS is otherwise unremarkable Gastrointestinal: Nausea, Constipation Physical Examination - Vital Signs Temperature: 98.0 F Blood Pressure: 163/74 Pulse: 91 Respirations: 18 Pulse Ox (%): 96 - Physical Exam General: Alert, In no apparent distress HEENT: Atraumatic, PERRLA, EOMI Neck: Supple, JVD not distended Respiratory: Clear to auscultation bilaterally, Normal air movement Cardiovascular: Regular rate/rhythm, Normal S1 S2 Gastrointestinal: Normal bowel sounds, No tenderness Musculoskeletal: No tenderness Integumentary: No rashes Neurological: Normal speech, Normal tone, Normal affect Lymphatics: No axilla or inguinal lymphadenopathy - Studies Microbiology Data (last 24 hrs): 01/04/20 14:50 Clean Catch Urine [place] Count - Final BETWEEN 10,000 & 100,000 CFU/ML 01/04/20 14:50 Clean Catch Urine - Final MIXED ISHAN. Assessment & Plan - Problems (Diagnosis) (1) COVID-19 Current Visit: Yes Status: Acute Plan: Was positive 10 days ago. We are getting a rapid retesting. Will keep her in the ICU for covid patients and take all precautions till the result come back. 01/05 Will avoid the steroids as we dont want to worsen diabetes She is still positive. However is not symptomatic. (2) Protein-energy malnutrition Current Visit: Yes Status: Acute Plan: Patient has been bed bound and constipation since admission. We have ordered PT. However getting active PT in a covid unit is proving difficult. Qualifiers: Protein-calorie malnutrition severity: moderate Qualified Code(s): E44.0 - Moderate protein-calorie malnutrition (3) Chronic back pain Current Visit: Yes Status: Acute Plan: will treat chronically. At this point will put her on prn dilaudid. Once she is doing better will have her acessed by PT. Will see in the office if we can reduce her need for narcotics Qualifiers: Back pain location: back pain in unspecified location Back pain laterality: midline Qualified Code(s): M54.9 - Dorsalgia, unspecified; G89.29 - Other chronic pain (4) DKA (diabetic ketoacidoses) Current Visit: Yes Status: Resolved Plan: Patient is only on metformin. She has never been very well controlled. With the last know a1c being 9.9. Will put her in the unit and start the patient on fluids and iv insulin. Will monitor her potassium, phosphorus and mag. Keep her on replacement protochols. Will check her bmp Q4 hrs. Till she closes her gap and able to tolerate po. Will start her on protonix. Prn Zofran as well. 01/05 Will continue advancing the diet She is off the insulin drip and on subcut lantus Will restart the metformin. Qualifiers: Diabetes mellitus type: type 2 Diabetes mellitus complication detail: without coma Qualified Code(s): E11.10 - Type 2 diabetes mellitus with ketoacidosis without coma (5) Constipation Current Visit: Yes Status: Acute Plan: will start her on colace and have the nursing staff ambulate the patient. Will need to get her more mobile before discharge. she is covid positive getting her home health would be difficult. Would want to not to send her home. If she is still bed bound Qualifiers: Constipation type: unspecified constipation type Qualified Code(s): K59.00 - Constipation, unspecified (6) Pancreatitis, acute Current Visit: Yes Status: Resolved Plan: May be secondary to the DKA. She has a history of a cholecystectomy. So most likely it is not gallstones. 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 She does use chronic hyrdocodone. 01/05 Will recheck lipase Discharge Plan: Home Plan to discharge in: 24 Hours - Code Status/Comfort Care Code Status Assessed: No Physician Review: Patient Assessed, Agree with Above Assessment and Plan Critical Care: No Time Spent Managing Pts Care (In Minutes): 20
[2020-01-08] MEDS ORDERED: DIPHENHYDRAMINE 25 MG TAB/CAP PO PRN (09:00)
[2020-01-08] MEDS ORDERED: MAGNESIUM SULFATE 1 gm IVPB 1 GM/100 ML BAG IV ONE (09:00)
[2020-01-08] MEDS ORDERED: POTASSIUM CL SA 10 MEQ TAB PO ONE (09:00)
[2020-01-08 09:17] LABS: Platelet Estimate ADEQ; Urine White Blood Cell Casts OK
[2020-01-08 09:18] LABS: Blood Morphology Comment NOT SEEN (NOT SEEN)
[2020-01-08 09:21] LABS: Phosphorus 2.5 mg/dL (2.5-4.9)
[2020-01-08] MEDS: ACETAMINOPHEN 500 MG TAB PO PRN (11:40)
[2020-01-08] MEDS: ENOXAPARIN 40 MG/0.4 ML SQ SCH (16:05)
[2020-01-09] MEDS ORDERED: ZOLPIDEM TARTRATE 5 MG TABLET PO ONE (00:18)
[2020-01-09] MEDS: PANTOPRAZOLE 40MG TABLET PO SCH (05:33)
[2020-01-09 06:24] LABS: Potassium 3.8 mmol/L (3.5-5.1)
[2020-01-09] MEDS: NA CHLORIDE 0.9% 1,000 ML IV SCH (06:33)
[2020-01-09] MEDS: INSULIN -REGULAR HUMAN 50 UNIT/0.5 ML ML SQ SCH (07:30)
[2020-01-09 08:30] VITALS: BP 134/68; TEMP 97.9
--- NOTE | 2020-01-09 08:34 | P.DS ---
Admission Date: 01/04/20 Discharge Date: 01/09/20 Primary Care Provider: Inna Disposition: ROUTINE DISCHARGE Discharge Condition: GOOD Reason for Admission: DKA, pancreatitis, covid - Problems (1) COVID-19 Current Visit: Yes Status: Acute (2) Protein-energy malnutrition Current Visit: Yes Status: Acute Qualifiers: Protein-calorie malnutrition severity: moderate Qualified Code(s): E44.0 - Moderate protein-calorie malnutrition (3) Chronic back pain Current Visit: Yes Status: Acute Qualifiers: Back pain location: back pain in unspecified location Back pain laterality: midline Qualified Code(s): M54.9 - Dorsalgia, unspecified; G89.29 - Other chronic pain (4) DKA (diabetic ketoacidoses) Current Visit: Yes Status: Resolved Qualifiers: Diabetes mellitus type: type 2 Diabetes mellitus complication detail: without coma Qualified Code(s): E11.10 - Type 2 diabetes mellitus with ketoacidosis without coma (5) Constipation Current Visit: Yes Status: Acute Qualifiers: Constipation type: unspecified constipation type Qualified Code(s): K59.00 - Constipation, unspecified (6) Pancreatitis, acute Current Visit: Yes Status: Resolved Brief History of Present Illness: Patient is a 69 year old woman. She told the staff that I was here PCP. She has yet to establish. However I would be happy to take care of her. She was in the hospital on 12/23 and was tested positive for covid. She came back a few days latter for nausea and vomiting. She is back today and was found to be in DKA with an elevated lipase. She states that she was not able to keep anything down for the past 4 days. This includes fluids and medications. She came in with a glucose greater than 500 on blood draw. Positve gap of 26. She had a negative CT scan of the abdomen. She is in some distress and not able to give a good history. She has a history of diabetes and back pain. Hospital Course: Patient was admitted for DKA. She was kept on an insulin drip in the ICU. We were able to get her off the drip. She was not able to eat. The patient was not mobile and constipated. As she tested covid positive we could not get PT into the unit to treat her. The patient was transfered to the floors. She is doing better after we treated her constipation. However she is still week. [facility] is willing to see covid patients. The patient initially tested positive a few weeks ago. Her admission and positive covid test was approx 2 weeks after her initial covid screening. Will have her follow up with me in a 2 weeks. As long as mask protochol is maintained we should all be safe. Thank you for allowing me to take part in her care. Vital Signs/Physical Exam: Temp Pulse Resp BP Pulse Ox 97.9 F 90 18 134/68 96 01/09/20 08:00 01/09/20 08:00 01/09/20 08:00 01/09/20 08:00 01/09/20 08:00 General: Alert, In no apparent distress HEENT: Atraumatic, PERRLA, EOMI Neck: Supple, JVD not distended Respiratory: Clear to auscultation bilaterally, Normal air movement Cardiovascular: Regular rate/rhythm, Normal S1 S2 Gastrointestinal: Normal bowel sounds, No tenderness Musculoskeletal: No tenderness Integumentary: No rashes Neurological: Normal speech, Normal tone, Normal affect Lymphatics: No axilla or inguinal lymphadenopathy Laboratory Data at Discharge: WBC 9.9 K/uL (4.3-10.9) D 01/08/20 07:05 Hgb 9.7 g/dL (12.0-15.0) L 01/08/20 07:05 Hct 28.5 % (36.0-45.0) L 01/08/20 07:05 Plt Count 183 K/uL (152-406) 01/08/20 07:05 Sodium 145 mmol/L (136-145) 01/09/20 05:40 Potassium 3.8 mmol/L (3.5-5.1) 01/09/20 05:40 BUN 9 mg/dL (7-18) 01/09/20 05:40 Creatinine 0.74 mg/dL (0.55-1.3) 01/09/20 05:40 Glucose 113 mg/dL (74-106) H 01/09/20 05:40 Phosphorus 2.5 mg/dL (2.5-4.9) 01/08/20 07:05 Magnesium 2.0 mg/dL (1.8-2.4) 01/09/20 05:40 Total Bilirubin 0.6 mg/dL (0.2-1.0) 01/08/20 07:05 AST 18 U/L (15-37) 01/08/20 07:05 ALT 12 U/L (12-78) 01/08/20 07:05 Alkaline Phosphatase 41 U/L (45-117) L 01/08/20 07:05 Triglycerides 284 mg/dL (<150) H 01/06/20 05:12 Cholesterol 126 mg/dL (<200) 01/06/20 05:12 HDL Cholesterol 29 mg/dL (40-60) L 01/06/20 05:12 Cholesterol/HDL Ratio 4.34 01/06/20 05:12 Lipase 1422 U/L (73-393) H 01/04/20 11:36 Home Medications: Metformin HCl [Metformin ER Osmotic] 500 mg PO DAILY 04/13/13 Hydrocodone 10/APAP 325 [[place] 10/325] 1 tab PO Q6H PRN #20 tab 04/12/15 Docusate [Colace Cap*] 100 mg PO BID 30 Days #60 cap 01/09/20 Insulin Glargine Human [Lantus*] 12 units SQ DAILY WITH BREAKFAST 30 Days #30 ml 01/09/20 Lisinopril [Zestril] 10 mg PO DAILY #30 tablet 01/09/20 Metformin HCl 500 mg PO BID 30 Days #60 tablet 01/09/20 New Medications: Docusate [Colace Cap*] 100 mg PO BID 30 Days #60 cap Insulin Glargine Human [Lantus*] 12 units SQ DAILY WITH BREAKFAST 30 Days #30 ml Metformin HCl 500 mg PO BID 30 Days #60 tablet Lisinopril [Zestril] 10 mg PO DAILY #30 tablet Diet: ADA Activity: Ad juana Followup: Cirilo Keith MD [Primary Care Provider] - 1-2 Weeks (PCP- call to schedule an appointment ) Physician Review: Patient Assessed, Agree with Above Assessment and Plan Time spent managing pt's care (in minutes): 30
[2020-01-09] MEDS: DOCUSATE NA 100 MG CAP PO SCH (08:58)
[2020-01-09] MEDS: INSULIN GLARGINE 100 UNITS/ML SQ SCH (08:58)
[2020-01-09] MEDS ORDERED: POTASSIUM CL SA 10 MEQ TAB PO ONE (09:00)
[2020-01-09 09:18] VITALS: O2SAT 96
== END 2020-01-09 11:09 | disposition home health service (06) | DRG 637 ==
LOC: ER 10:59 → SUPCPDRO 10:59 → ERHOLD 14:56 → 3RD-ICU 20:03 → 4TH 01-07 20:33
PROVIDERS: ADMIT Internal Medicine; ATTEND Internal Medicine
DX: E11.10 Type 2 diabetes mellitus with ketoacidosis without coma (principal); U07.1 COVID-19; K85.90 Acute pancreatitis without necrosis or infection, unspecified; E44.0 Moderate protein-calorie malnutrition; I10 Essential (primary) hypertension; K21.9 Gastro-esophageal reflux disease without esophagitis; M54.9 Dorsalgia, unspecified; G89.29 Other chronic pain; K59.00 Constipation, unspecified; Z88.8 Allergy status to other drugs, medicaments and biological substances; Z79.84 Long term (current) use of oral hypoglycemic drugs; Z79.891 Long term (current) use of opiate analgesic; Z90.49 Acquired absence of other specified parts of digestive tract; Z68.25 Body mass index [BMI] 25.0-25.9, adult
CPT/HCPCS: 36415; 71045; 74176; 80048; 80053; 80061; 80076; 81003; 82010; 82947; 83036; 83605; 83690; 83735; 84100; 84132; 84145; 84443; 85025; 86140; 87040; 87086; 87088; 96361; 96374; 96375; 99284; J0360; J1650; J1815; J2405; J2543; J3475; J7030; J7040; U0003

== ENCOUNTER 2020-04-04 13:43 | Emergency (ER) | payer OTHER ==
--- OUTSIDE RECORDS SUMMARY | 2020-04-04 13:45 | XMS REPORT | Continuity of Care Document ---
:1950 Author Organization [facility] t Address [address] [place] [address] Care Team Providers Name Role Phone Travis Chawla Attending Clinician Jean Tristan MD Attending Clinician Problems Condition Condition Condition Status Onset Resolution Last Treating Co mments Source Name Details Category Date Date Treatment Clinician Date Type 2 Type 2 Problem Active [facility] diabetes Diabetes 9-17 Family mellitus Mellitus 00:00: Practi c with with 00 e peripheral Peripheral angiopathy Angiopathy Diabetic Diabetic Problem Active Holder ge peripheral Peripheral 7-17 Fa angel neuropathy Neuropathy 00:00: Pr actic 00 e Major Major Problem Active [facility] depressive Depressive 7-17 Fa angel disorder Disorder 00:00: Practi c [...] on both on both l sides sides [facility] Uncontroll Uncontroll Problem Active [facility] ed type 2 ed type 2 Luke s - diabetes diabetes Memori a mellitus mellitus l with with Outpati hyperglyce hyperglyce en t [facility]ics Essential Essential Problem Active [facility] hypertensi hypertensi Safia kes - on on Memoria l [facility] Trigger Trigger Problem Active [facility] finger, finger, [facility] - unspecifie unspecifie Me moria d finger, d finger, l unspecifie unspecifie Ou tpati d d ent laterality laterality Cl inics Allergic Allergic Problem Active [facility] rhinitis rhinitis [facility] - [facility] l [facility] Depression Depression Problem Active [facility] with with [facility] - anxiety anxiety Memoria l [facility] Chronic Chronic Problem Active [facility] pain pain [facility]ukes - syndrome syndrome Memori a l [facility] Seasonal Seasonal Problem Active [facility] allergies allergies Luke s - Memoria l [facility] Vulvovagin Vulvovagin Problem Active [facility] itis itis [facility] - Mem[facility] l [facility]ics Lipoma of Lipoma of Problem Active [facility] torso torso [facility] - [facility] Screening Screening Problem Active [facility] for colon for colon Luke s - cancer cancer Memoria l [facility] Screening Screening Problem Active [facility] for breast for breast Safia kes - cancer cancer Memoria l [facility] Primary Primary Problem Active [facility] osteoarthr osteoarthr Safia kes - itis of itis of Memoria left hand left hand l [facility]ics Osteopenia Osteopenia Problem Active [facility] of hand, of hand, [facility]ukes - unspecifie unspecifie Me moria d d l laterality laterality Ou tpati ent Clinics Diabetes Diabetes Problem Active [facility] mellitus, mellitus, Luke s - type 2 type 2 Memoria l [facility] Hospital Hospital Problem Active [facility] discharge discharge Luke s - follow-up follow-up Juan rico l [facility] Acute pain Acute pain Problem Active [facility] of right of right [facility] - knee knee [facility] l [facility]ics Effusion Effusion Problem Active [facility] of knee of knee [facility] - joint joint Memoria right right l [facility]ics Primary Primary Problem Active [facility] osteoarthr osteoarthr Safia kes - itis, itis, Memoria right hand right hand l [facility] ent Clinics Primary Primary Problem Active [facility] osteoarthr osteoarthr Safia kes - itis itis Memoria involving involving l multiple multiple Outpat i joints joints ent Clinics Cough Cough Problem Active [facility] - Memoria l [facility] Clinics Common Common Problem Active [facility] cold virus cold virus [facility] Exposure Exposure Problem Active [facility] to the flu to the flu [facility] - Memoria [facility] ent Clinics Body aches Body aches Problem Active [facility] - [facility]oria [facility] Clin[facility] Pain in Pain in Problem Active [facility] left knee left knee Luke s - Memoria l [facility] Clinics Other Other Diagnosis Active [facility] chronic chronic [facility] Allergies, Adverse Reactions, Alerts This patient has no known allergies or adverse reactions. Social History Smoking Status Start Date Stop Date Source Former [facility] Medications Ordered Filled Start Stop Current Ordering Indication Dosage Frequency Signature Comments Components Source Medication Medication Date Date Medication? Clinician (SIG) Name Name Glimepiride Glimepiride Yes Alicia [address] [facility] 9- [place] with [facility] - 00:00: breakfast Memoria 00 or the l first main [facility] meal of ent the day [facility] Avis Albarran Yes Alicia [address] 5- [place] [facility] - 00:00: Memoria 00 [facility] ent Clinics Farxiks 5 Farxiga 5 No 1 Q1D [facility] 5 [place] mg tablet mg tablet mg [...] nasal mcg/actuat spray,suspe spray,suspe ion nasal nsion [place] nsion [place] spray,susp 1 spray 1 spray ension twice a day twice a day [place] 1 by by spray intranasal intranasal twice [...] [facility] - Memoria l [facility] ent Clinics Acetaminoph Acetaminoph Yes Alicia [address] en-Codeine en-Codeine [place] as needed [facility]ukes - #3 #3 Memoria l [facility] Lisinopril Lisinopril Yes Alicia [address] [facility] [address] [place] [facility] - [facility]oria l [facility] Clinics Melatonin Melatonin Yes Alicia [address] [facility] [address] [place] at bedtime Luke s - as needed Memoria with food l [facility] Gabapentin Gabapentin Yes Alicia [address] [facility] [place] [facility] - Memoria l [facility] Clinics Diclofenac Diclofenac Yes Alicia TAKE [address] [facility] Sodium Sodium [place] TABLET BY L ukes - MOUTH Memoria TWICE A l DAY WITH [facility] MEALS ent Clinics Metformin Metformin Yes Alicia [address] HCl HCl [place] with meals Luke s - Memoria l [facility] ent Clinics citalopram citalopram No 1 Q1D citalopram [facility] 10 mg 10 mg 10 mg Family tablet Take tablet Take tablet Practic 1 tablet 1 tablet Take 1 e every day every day tablet by oral by oral every day route. route. by oral route. gabapentin gabapentin No 1capsul BID gabapentin [facility] 300 mg 300 mg e(s) 300 mg Family capsule capsule capsule Practi c Take 1 Take 1 Take 1 e capsule capsule capsule twice a day twice a day twice a by oral by oral day by route. route. oral route. hydroxyzine hydroxyzine No 1 TID hydroxyzin [facility] 25 mg HCl 25 mg e HCl 25 F amily tablet Take tablet Take mg tablet Practic 1 tablet 3 1 tablet 3 Take 1 e times a day times a day tablet 3 by oral by oral times a route as route as day by directed. directed. oral route as directed. lisinopril lisinopril No 1 Q1D lisinopril [facility] 20 mg 20 mg 20 mg Family tablet Take tablet Take tablet Practic 1 tablet 1 tablet Take 1 e every day every day tablet by oral by oral every day route. route. by oral route. meloxicam meloxicam No 1 Q1D meloxicam [facility] 7.5 mg 7.5 mg 7.5 mg Family tablet Take tablet Take tablet Practic 1 tablet 1 tablet Take 1 e every day every day tablet by oral by oral every day route. route. by oral route. metformin metformin No 1 BID metformin [facility] 1,000 mg 1,000 mg 1,000 mg Fam maar tablet Take tablet Take tablet Practic 1 tablet 1 tablet Take 1 e twice a day twice a day tablet by oral by oral twice a route. route. day by oral route. 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 Medical 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) Group BP Systolic 2018-11-14 00:00:00 149 mm[Hg] [facility] Body Weight 2018-11-14 00:00:00 148.4 [lb_av] [facility] Procedures Procedure Date / Time Performed Performing Clinician Sour e TYMPANOMETRY 2018-11-14 00:00:00 [facility]cyst[facility] Plan of Care Planned Activity Planned Date Details Comments Source Future Appointment 2020-04-16 00:00:00 [facility] Jorge Alberto, [address]; [address], [place] [address] Instructions [facility] Encounters Start End Encounter Admission Attending Care Care Encounter Source Date/Time Date/Time Type Type Clinicians Facility Department ID 2020-02-12 2020-02-12 [facility] [place] - [id number] [facility] 00:00:00 00:00:00 Felipe [facility] Venu jennings, CREDIT COLLECTION SPECIALIST: Medical - Practi c [address] [email or web address], [place] [address], [place] [address] , Ph. 2020-02-03 2020-02-03 [facility] [id number] 11:00:00 11:00:00 [facility] 2019-12-28 2019-12-28 [facility] [id number] 00:00:00 00:00:00 [facility] [id number] Surgical [id number] Specialti [id number] es [address] [place] 2019-12-28 2019-12-28 [facility] [id number] 00:00:00 00:00:00 [facility] [id number] Surgical [id number] Specialti [id number] es 198 [place] 2019-12-23 2019-12-23 Outpatient [facility] [id number] 10:54:00 10:54:00 [facility] 2019-12-11 2019-12-11 [facility] [place] - [id number] V illage 00:00:00 00:00:00 [facility] mara jennings, CREDIT COLLECTION SPECIALIST: Medical - Practi c [address] [email or web address], [place] [address] , Ph. 2019-12-10 2019-12-10 Office [facility] [id number] 15:07:12 15:45:01 Visit [facility] [id number] Surgical [id number] Specialti [id number] es [address] [place] 2019-12-03 2019-12-03 Outpatient [facility] [id number] 14:42:00 14:42:00 [facility] 2019-10-27 2019-10-27 [facility] [id number] 16:30:00 16:30:00 [facility] 2019-10-20 2019-10-20 [facility] [id number] 22:55:00 22:55:00 t [facility] 2019-10-20 2019-10-20 [facility] [id number] 09:40:00 09:40:00 [facility] 2018-11-14 2018-11-14 [facility] [place] - [id number] [facility] 00:00:00 00:00:00 MD Tonya: [address], Otolaryngol [facility] [address] , Ph. Results Test Description Test Time Test Comments Results Result Comments Source tympanogram 2018-11-14 10:54:48 Test Item Value Reference Range Interpretation Comme nts Right (test code = Right) Type C Peak is on Left Left (test code = Left) Type B Curve Flat [facility]
--- OUTSIDE RECORDS SUMMARY | 2020-04-04 13:45 | XMS REPORT ---
:1950 [facility] Care Team Providers Name Role Phone Efrain Alicia Provider Role Unavailable Allergies, Adverse Reactions, Alerts Substance Reaction Event Type N.K.D.A. Info Not Available Non Drug Allergy Problems Problem Type Condition Code Onset Dates Condition Statu s Assessment Depression with anxiety F41.8 Acti ve Assessment Pain in left knee M25.562 Active Assessment Essential hypertension I10 Activ e Assessment Uncontrolled type 2 diabetes E11.65 Active mellitus with hyperglycemia Problem Trigger finger, unspecified finger, M65.30 Active unspecified laterality Problem Allergic rhinitis J30.9 Active Problem Depression with anxiety F41.8 Acti ve Problem Diabetes mellitus, type 2 E11.9 Ac tive Problem Vulvovaginitis N76.0 Active Problem Lipoma of torso D17.1 Active Problem Screening for breast cancer Z12.39 Active Problem Osteopenia of hand, unspecified M85.849 Active laterality Problem Screening for colon cancer Z12.11 A ctive Problem Hospital discharge follow-up Z09 Active Problem Essential hypertension I10 Activ e Problem Pain in left knee M25.562 Active Problem Trigger finger, left ring finger M65.342 Active Problem Primary osteoarthritis involving M15.0 Active multiple joints Problem Primary osteoarthritis, right hand M19.041 Active Problem Other chronic pain G89.29 Active Problem 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 Active Problem Burn T30.0 Active Problem Right hand pain M79.641 Active Problem Carpal tunnel syndrome on both G56.03 Active sides Problem Uncontrolled type 2 diabetes E11.65 Active mellitus with hyperglycemia Problem Body aches R52 Active Assessment Other chronic pain G89.29 Active Problem Cough R05 Active Problem Effusion of knee joint right M25.461 Active Problem Acute pain of right knee M25.561 Act riley Problem Chronic pain syndrome G89.4 Active Problem Seasonal allergies J30.2 Active Problem Exposure to the flu Z20.828 Active Problem Common cold virus J00 Active Medications Medication Code Code Instructions Start End Status Dosage System Date Date Melatonin [facility] 64330166041 5 MG Orally Active 1 tabl et at Once a day bedtime as needed with food Acetaminophen-C [facility] 96348745552 300-30 MG Active 1 tablet as odeine #3 Orally every 4 needed hrs Metformin HCl [facility] 96920613628 1000 MG Orally Active 1 tablet Twice a day with meals Glimepiride [facility] 23114047075 2 MG Orally Feb 02, Active 1 t ablet Once a day for 2019 with diabetes breakfast or the first main meal of the day Diclofenac [facility] 97638323539 75 MG Oral Active TAKE 1 Sodium TABLET BY MOUTH TWICE A DAY WITH MEALS Celexa [facility] 57152870396 10 MG Orally Active 1 table t Once a day Gabapentin [facility] 75084263630 800 MG Orally Active 1 t ablet Three times daily Lisinopril [facility] 39241977546 20 MG Orally Active 1 ta blet Once a day Celexa [facility] 63101101083 10 MG Orally Active 1 table t Once a day Januvia [facility] 66369219679 50 MG Orally October 19, Active 1 table t Once a day for 2019 diabetes Results No Known Results Summary Purpose eClinicalWorks Submission
--- NOTE | 2020-04-04 14:48 | ER ---
Nurse's Notes [facility] Name: Yadira Land Age: 69 yrs Sex: Female : 1950 Arrival Date: 04/04/2020 Time: 13:55 Bed 23 Private MD: Diagnosis: Pain in right knee;Fall on same level from slipping, tripping and stumbling Presentation: 04/04 14:01 Chief complaint: EMS states: "She was leaving the store when she tripped on the rug. jd3 she didn't fall and caught herself on her grocery basket, but she heard her right knee and ankle pop with pain. we started a 20 G IV to the left AC and gave 15 mg Ketamine at 1335. pain was decreased after medication.". Coronavirus screen: At this time, the client does not indicate any symptoms associated with coronavirus-19. Ebola Screen: Patient negative for fever greater than or equal to 101.5 degrees Fahrenheit, and additional compatible Ebola Virus Disease symptoms. Initial Sepsis Screen: Does the patient meet any 2 criteria? No. Patient's initial sepsis screen is negative. Does the patient have a suspected source of infection? No. Patient's initial sepsis screen is negative. Risk Assessment: Do you want to hurt yourself or someone else? Patient reports no desire to harm self or others. Onset of symptoms was April 04, 2020. 14:01 Method Of Arrival: EMS: [facility] jd3 14:01 Acuity: KARSTEN 3 jd3 Historical: - Allergies: 14:04 No Known Allergies; jd3 - Home Meds: 14:04 Unable to obtain [Active]; jd3 - PMHx: 14:04 Diabetes - NIDDM; Hypertension; jd3 - PSHx: 14:04 Cholecystectomy; Appendectomy; jd3 - Immunization history:: Adult Immunizations up to date. - Social history:: Smoking status: Patient denies any tobacco usage or history of. Screenin:06 Abuse screen: Denies threats or abuse. Nutritional screening: No deficits noted. jd3 Tuberculosis screening: No symptoms or risk factors identified. Fall Risk IV access (20 points). Ambulatory Aid- None/Bed Rest/Nurse Assist (0 pts). Gait- Weak (10 pts.). Mental Status- Oriented to own ability (0 pts). Total Rodriguez Fall Scale indicates Low Risk Score (25-44 pts). Fall prevention measures have been instituted. Side Rails Up X 2 Placed close to Nursing Station Frequent Obs/Assesments occuring. Assessment: 14:04 General: Appears in no apparent distress. uncomfortable, Behavior is calm, cooperative, jd3 appropriate for age. Pain: Complains of pain in right knee and right ankle Quality of pain is described as aching, tender. Neuro: Level of Consciousness is awake, alert, obeys commands, Oriented to person, place, time, situation. Cardiovascular: Capillary refill < 3 seconds Patient's skin is warm and dry. Respiratory: Airway is patent Respiratory effort is even, unlabored, Respiratory pattern is regular, symmetrical. GI: No signs and/or symptoms were reported involving the gastrointestinal system. : No signs and/or symptoms were reported regarding the genitourinary system. EENT: No signs and/or symptoms were reported regarding the EENT system. Derm: Skin is intact, Skin is dry, Skin is normal, Skin temperature is warm. Musculoskeletal: Circulation, motion, and sensation intact. Range of motion: intact in all extremities, Swelling present in right knee and right ankle. 15:11 Reassessment: Patient appears in no apparent distress at this time. No changes from jd3 previously documented assessment. Patient and/or family updated on plan of care and expected duration. Pain level reassessed. Patient is alert, oriented x 3, equal unlabored respirations, skin warm/dry/pink. Vital Signs: 14:04 BP 136 / 98; Pulse 101; Resp 17 S; Temp 98.2(O); Pulse Ox 98% on R/A; Weight 68.04 kg jd3 (R); Height 5 ft. 4 in. (162.56 cm) (R); Pain 8/10; 15:11 BP 137 / 70; Pulse 88; Resp 17 S; Pulse Ox 97% on R/A; jd3 14:04 Body Mass Index 25.75 (68.04 kg, 162.56 cm) jd3 ED Course: 13:55 Patient arrived in ED. jd3 13:57 [facility]oades [facility]C [facility] sn 13:57 Bala Webb MD is Attending Physician. snw 14:01 Beck, Colby, RN is Primary Nurse. jd3 14:03 Triage completed. jd3 14:04 Arm band placed on. jd3 14:06 Patient has correct armband on for positive identification. Bed in low position. Call jestefania light in reach. Side rails up X2. Pulse ox on. NIBP on. 14:31 Knee Right 3 View XRAY In Process Unspecified. EDMS 15:12 No provider procedures requiring assistance completed. IV discontinued, intact, jd3 bleeding controlled, No redness/swelling at site. Pressure dressing applied. Scout wrap to right knee and right ankle. Administered Medications: No medications were administered Outcome: 14:47 Discharge ordered by . snw 15:12 Discharged to home via wheelchair, with family. jd3 15:12 Condition: stable 15:12 Discharge instructions given to patient, Instructed on discharge instructions, follow up and referral plans. medication usage, Demonstrated understanding of instructions, follow-up care, medications, Prescriptions given X 1. 15:14 Patient left the ED. jd3 Signatures: Dispatcher [employer] EDND Olivia Rhoades, DELROY-C TEST PREPARATION TUTOR-Colby Loja, RN RN jestefania
--- NOTE | 2020-04-04 14:48 | EDPHYS ---
Physician Documentation [facility] Name: Yadira Land Age: 69 yrs Sex: Female : 1950 Arrival Date: 04/04/2020 Time: 13:55 Bed 23 Private MD: ED Physician Bala Webb HPI: 04/04 14:25 This 69 yrs old Female presents to ER via EMS with complaints of right knee. snw 14:25 The patient presents with pain. The complaints affect the right knee. Context: The snw problem was sustained at a parking lot, resulted from the patient tripping, on the edge of a carpet, the patient can partially bear weight, the patient is not able to ambulate. Onset: The symptoms/episode began/occurred suddenly, just prior to arrival. Associated signs and symptoms: The patient has no apparent associated signs or symptoms, Pertinent negatives head injury or LOC. Treatment prior to arrival includes: 15mg Ketamine iv per EMS. Severity of symptoms: At their worst the symptoms were moderate. The patient has not experienced similar symptoms in the past. It is unknown whether or not the patient has recently seen a physician. Historical: - Allergies: 14:04 No Known Allergies; jd3 - Home Meds: 14:04 Unable to obtain [Active]; jd3 - PMHx: 14:04 Diabetes - NIDDM; Hypertension; jd3 - PSHx: 14:04 Cholecystectomy; Appendectomy; jd3 - Immunization history:: Adult Immunizations up to date. - Social history:: Smoking status: Patient denies any tobacco usage or history of. ROS: 14:24 Constitutional: Negative for fever, chills, and weight loss, Eyes: Negative for injury, snw pain, redness, and discharge, ENT: Negative for injury, pain, and discharge, Neck: Negative for injury, pain, and swelling, Cardiovascular: Negative for chest pain, palpitations, and edema, Respiratory: Negative for shortness of breath, cough, wheezing, and pleuritic chest pain, Abdomen/GI: Negative for abdominal pain, nausea, vomiting, diarrhea, and constipation, Back: Negative for injury and pain, : Negative for injury, bleeding, discharge, and swelling, Skin: Negative for injury, rash, and discoloration, Neuro: Negative for headache, weakness, numbness, tingling, and seizure, Psych: Negative for depression, anxiety, suicide ideation, homicidal ideation, and hallucinations. 14:24 MS/extremity: Positive for decreased range of motion, pain, swelling, tenderness, of the right knee. Exam: 14:23 Constitutional: This is a well developed, well nourished patient who is awake, alert, snw and in no acute distress. Head/Face: Normocephalic, atraumatic. Eyes: Pupils equal round and reactive to light, extra-ocular motions intact. Lids and lashes normal. Conjunctiva and sclera are non-icteric and not injected. Cornea within normal limits. Periorbital areas with no swelling, redness, or edema. ENT: Nares patent. No nasal discharge, no septal abnormalities noted. Tympanic membranes are normal and external auditory canals are clear. Oropharynx with no redness, swelling, or masses, exudates, or evidence of obstruction, uvula midline. Mucous membranes moist. Neck: Trachea midline, no thyromegaly or masses palpated, and no cervical lymphadenopathy. Supple, full range of motion without nuchal rigidity, or vertebral point tenderness. No Meningismus. Chest/axilla: Normal chest wall appearance and motion. Nontender with no deformity. No lesions are appreciated. Cardiovascular: Regular rate and rhythm with a normal S1 and S2. No gallops, murmurs, or rubs. Normal PMI, no JVD. No pulse deficits. Respiratory: Lungs have equal breath sounds bilaterally, clear to auscultation and percussion. No rales, rhonchi or wheezes noted. No increased work of breathing, no retractions or nasal flaring. Abdomen/GI: Soft, non-tender, with normal bowel sounds. No distension or tympany. No guarding or rebound. No evidence of tenderness throughout. Back: No spinal tenderness. No costovertebral tenderness. Full range of motion. Skin: Warm, dry with normal turgor. Normal color with no rashes, no lesions, and no evidence of cellulitis. Neuro: Awake and alert, GCS 15, oriented to person, place, time, and situation. Cranial nerves II-XII grossly intact. Motor strength 5/5 in all extremities. Sensory grossly intact. Cerebellar exam normal. Normal gait. Psych: Awake, alert, with orientation to person, place and time. Behavior, mood, and affect are within normal limits. 14:23 Musculoskeletal/extremity: Extremities: grossly normal except: noted in the right knee: contusion, decreased ROM, swelling, tenderness, Circulation is intact in all extremities. Sensation intact. Vital Signs: 14:04 BP 136 / 98; Pulse 101; Resp 17 S; Temp 98.2(O); Pulse Ox 98% on R/A; Weight 68.04 kg jd3 (R); Height 5 ft. 4 in. (162.56 cm) (R); Pain 8/10; 15:11 BP 137 / 70; Pulse 88; Resp 17 S; Pulse Ox 97% on R/A; jd3 14:04 Body Mass Index 25.75 (68.04 kg, 162.56 cm) jd3 MDM: 13:58 Patient medically screened. snw 14:49 Data reviewed: vital signs, nurses notes. Data interpreted: Pulse oximetry: on room air snw is 98 %. Interpretation: normal. Counseling: I had a detailed discussion with the patient and/or guardian regarding: the historical points, exam findings, and any diagnostic results supporting the discharge/admit diagnosis, the presence of at least one elevated blood pressure reading (>120/80) during this emergency department visit, radiology results, the need for outpatient follow up, to return to the emergency department if symptoms worsen or persist or if there are any questions or concerns that arise at home. Special discussion: Based on the history and exam findings, there is no indication for further emergent testing or inpatient evaluation. I discussed with the patient/guardian the need to see the orthopedic surgeon for further evaluation of the symptoms. I discussed with the patient/guardian the need to see the primary care provider for further evaluation of the symptoms. 04/04 14:04 Order name: Knee Right 3 View XRAY snw 04/04 14:34 Order name: Misc. Order: Please ambulate with pt in hallway; Complete Time: 14:44 snw 04/04 14:46 Order name: Scout Wrap; Complete Time: 14:47 snw Administered Medications: No medications were administered Disposition: 04/05 06:49 Co-signature as Attending Physician, Bala Webb MD I agree with the assessment and kdr plan of care. Disposition: 04/04/20 14:47 Discharged to Home. Impression: Pain in right knee, Fall on same level from slipping, tripping and stumbling. - Condition is Stable. - Discharge Instructions: RICE for Routine Care of Injuries, Knee Pain. - Prescriptions for orphenadrine citrate 100 mg Oral Tablet Sustained Release - take 1 tablet by ORAL route 2 times per day As needed; 20 tablet. - Medication Reconciliation Form, Thank You Letter, Antibiotic Education, Prescription Opioid Use form. - Follow up: Emergency Department; When: As needed; Reason: Worsening of condition. Follow up: Private Physician; When: 2 - 3 days; Reason: Recheck today's complaints, Continuance of care, Re-evaluation by your physician. Signatures: Dispatcher [employer] EDMS Bala Webb MD MD kdr Waters, Shelly, FNP-C DELROY-Colby Loja RN RN jd3 Corrections: (The following items were deleted from the chart) 04/04 15:14 14:47 04/04/2020 14:47 Discharged to Home. Impression: Pain in right knee; Fall on same jd3 level from slipping, tripping and stumbling. Condition is Stable. Forms are Medication Reconciliation Form, Thank You Letter, Antibiotic Education, Prescription Opioid Use. Follow up: Emergency Department; When: As needed; Reason: Worsening of condition. Follow up: Private Physician; When: 2 - 3 days; Reason: Recheck today's complaints, Continuance of care, Re-evaluation by your physician. snw
--- NOTE | 2020-04-04 15:32 | RAD REPORT ---
EXAM DESCRIPTION: RAD - Knee Right 3 View - 04/04/2020 2:31 pm CLINICAL HISTORY: Pain;Smash injury COMPARISON: Knee Right 3 View dated 03/19/2011 FINDINGS: No fracture, dislocation or periosteal reaction.Moderate joint effusions seen without flui d fluid level. Patella femoral joint space narrowing and marginal spurring changes are seen. Medial c ompartment joint space narrowing also present. No foreign body in the soft tissues. Arterial tree liborio cifications are present. IMPRESSION: Patellofemoral and medial compartment degenerative changes are present without acute bon e finding identified. Small to moderate joint effusion. Clinical concerns for internal derangement or occult bony injury could be further assessed with MR im kellie.
[2020-04-04 16:26] VITALS: TEMP 98.2
[2020-04-04 16:27] VITALS: BP 137/70; O2SAT 97
== END 2020-04-04 15:14 | disposition home or self-care (01) ==
LOC: ER 13:43
DX: M25.561 Pain in right knee (principal); W01.0XXA Fall on same level from slipping, tripping and stumbling without subsequent striking against object, initial encounter; Y93.01 Activity, walking, marching and hiking; Y92.512 Supermarket, store or market as the place of occurrence of the external cause; I10 Essential (primary) hypertension
CPT/HCPCS: 99284

== ENCOUNTER 2020-09-08 13:17 | Emergency (ER) | payer OTHER ==
--- OUTSIDE RECORDS SUMMARY | 2020-09-08 13:22 | XMS REPORT | Continuity of Care Document ---
:1950 Author Organization [facility] t Address [address] [place] [address] Care Team Providers Name Role Phone Travis Chawla Attending Clinician Azalea MELENDREZ L Attending Clinician Problems Condition Condition Condition Status Onset Resolution Last Treating Co mments Source Name Details Category Date Date Treatment Clinician Date Senile Senile Problem Active [facility] purpura Purpura 1-26 Family 00:00: Practic 00 e Peripheral Peripheral Problem Active [facility] Vascular 1- Family disease Disease 00:00: Practic 00 e Type 2 Type 2 Problem Active [facility] diabetes Diabetes 9-17 Family mellitus Mellitus 00:00: Practi c with with 00 e peripheral Peripheral angiopathy Angiopathy Diabetic Diabetic Problem Active Holder ge peripheral Peripheral 7-17 Fa angel neuropathy Neuropathy 00:00: Pr actic 00 e Major Major Problem Active [place] depressive Depressive 7-17 Fa angel disorder Disorder 00:00: Practi c 00 e Essential Essential Problem Active 2019- Glenn charo hypertensi Hypertensi 7-17 Fa angel on on 00:00: Practic 00 e Bilateral Bilateral Problem Active 2019- Glenn charo knee pain Knee Pain 7-17 Fami ly 00:00: Practic 00 e Body aches Body aches Problem Active [facility] Pain in Pain in Problem Active [facility] left knee left knee [facility] Other Other Diagnosis Active [facility] chronic chronic [facility] - pain pain [facility] l [facility] Trigger Trigger Problem Active [facility] finger, finger, [facility] - left ring left ring Juan rico finger finger l [facility] Burn Burn Problem [facility] Right hand Right hand Problem Active [facility] pain pain [facility] Carpal Carpal Problem Active [facility] tunnel tunnel [facility] - syndrome syndrome Memori a on both on both l sides sides [facility] Uncontroll Uncontroll Problem Active C [facility] ed type 2 ed type 2 Luke s - diabetes diabetes Memori a mellitus mellitus l with with [facility] hyperglyce hyperglyce en t [facility] Clinics Essential Essential Problem Active [facility] hypertensi hypertensi Safia kes - on on Memoria l [facility] Trigger Trigger Problem Active [facility] finger, finger, [facility] - unspecifie unspecifie Me moria d finger, d finger, l unspecifie unspecifie Ou tpati d d ent laterality laterality Cl inics Allergic Allergic Problem Active [facility] rhinitis rhinitis [facility] Depression Depression Problem Active [facility] Chronic Chronic Problem Active [facility] pain pain [facility] - syndrome syndrome Memori a l [facility] Seasonal Seasonal Problem Active [facility] allergies allergies [facility] Vulvovagin Vulvovagin Problem Active [facility] itis itis [facility] Lipoma of Lipoma of Problem Active [facility] torso torso [facility] Screening Screening Problem Active [facility] for colon for colon Luke s - cancer cancer Memoria l [facility] Screening Screening Problem Active [facility] for breast for breast Safia kes - cancer cancer Memoria l [facility] Primary Primary Problem Active [facility] osteoarthr osteoarthr Safia kes - itis of itis of Memoria left hand left hand l [facility] Osteopenia Osteopenia Problem Active [facility] of hand, of hand, [facility] - unspecifie unspecifie Me moria d d l laterality laterality Ou tpati ent Clinics Diabetes Diabetes Problem Active [facility] mellitus, mellitus, Luke s - type 2 type 2 Memoria [facility] Hospital Problem Active [facility] discharge discharge Luke s - follow-up follow-up Juan rico l [facility] ent [facility] Acute pain Acute pain Problem Active [facility] of right of right [facility] - knee knee Memoria [facility] Effusion Effusion Problem Active [facility] of knee of knee [facility] - joint joint Memoria right right l [facility] ent Clinics Primary Primary Problem Active [facility] osteoarthr osteoarthr Safia kes - itis, itis, Memoria right hand right hand l [facility] ent Clinics Primary Primary Problem Active [facility] osteoarthr osteoarthr Safia kes - itis itis Memoria involving involving l multiple multiple Outpat i joints joints ent Clinics Cough Cough Problem Active [facility] Common Common Problem Active [facility] cold virus cold virus [facility] ent [facility] Exposure Exposure Problem Active [facility] to the flu to the flu [facility] ent [facility] Allergies, Adverse Reactions, Alerts This patient has no known allergies or adverse reactions. Social History Smoking Status Start Date Stop Date Source Former Smoker [facility] Medications Ordered Filled Start Stop Current Ordering Indication Dosage Frequency Signature Comments Components Source Medication Medication Date Date Medication? Clinician (SIG) Name Name Glimepiride Glimepiride Yes Alicia [address] [facility] 9-09 [place] with [facility] - 00:00: breakfast Memoria 00 or the l first main [facility] meal of ent the day [facility] Avis Albarran Yes Alicia [address] 5-26 [facility] - 00:00: Memoria 00 [facility] Ultra Thin Ultra Thin No Ultra Thin [place] Lancets 31 Lancets 31 Lancets 31 Family gauge Use gauge Use gauge Use Practic to test to test to test e blood blood blood glucose glucose glucose once a day once a day once a day Farxiga 5 Farxiga 5 No 1 Q1D [...] nasal mcg/actuat spray,suspe spray,suspe ion nasal nsion [place] nsion [place] spray,susp 1 spray 1 spray ension twice a day twice a day [place] 1 by by spray intranasal intranasal twice [...] a route. route. day by oral route. acetaminoph acetaminoph No acetaminop [place] en 300 en 300 hen 300 Family mg-codeine mg-codeine mg-codeine Practic 30 mg 30 mg 30 mg e tablet TAKE tablet TAKE tablet 1 TABLET BY 1 TABLET BY TAKE 1 MOUTH EVERY MOUTH EVERY TABLET BY 8 HOURS 8 HOURS MOUTH EVERY 8 HOURS amoxicillin amoxicillin No amoxicilli [place] 500 mg 500 mg n 500 mg Family capsule capsule capsule Practi c TAKE 1 TAKE 1 TAKE 1 e CAPSULE BY CAPSULE BY CAPSULE BY MOUTH EVERY MOUTH EVERY MOUTH 6 HOURS 6 HOURS EVERY 6 HOURS amoxicillin amoxicillin No amoxicilli [place] 500 500 n 500 Family mg-potassiu mg-potassiu mg-potassi Practic m m um e clavulanate clavulanate clavulanat 125 mg 125 mg e 125 mg tablet tablet tablet BD BD No BD [place] Ultra-Fine Ultra-Fine Ultra-Fine Family Micro Pen Micro Pen Micro Pen Practic Needle 32 Needle 32 Needle 32 e gauge x gauge x gauge x /4" 4" 05/30" Celexa Celexa Yes Alicia [address] [facility] celecoxib celecoxib No celecoxib [place] 200 mg 200 mg 200 mg Family capsule capsule capsule Practi c TAKE 1 TAKE 1 TAKE 1 e CAPSULE BY CAPSULE BY CAPSULE BY MOUTH EVERY MOUTH EVERY MOUTH DAY DAY EVERY DAY Acetaminoph Acetaminoph Yes Alicia [address] [facility] en-Codeine en-Codeine Mill[place] as needed [facility] - #3 #3 Memoria l [facility] Lisinopril Lisinopril Yes Alicia [address] [facility] chlorthalid chlorthalid No chlorthali [place] one 25 mg one 25 mg done 25 mg Family tablet TAKE tablet TAKE tablet Practic 1 TABLET BY 1 TABLET BY TAKE 1 e MOUTH EVERY MOUTH EVERY TABLET BY DAY DAY MOUTH EVERY DAY Melatonin Melatonin Yes Alicia [address] [facility] Mill[facility] at bedtime Luke s - as needed Memoria with food l [facility] citalopram citalopram No 1 Q1D citalopram [place] 10 mg 10 mg 10 mg Family tablet Take tablet Take tablet Practic 1 tablet 1 tablet Take 1 e every day every day tablet by oral by oral every day route. route. by oral route. Gabapentin Gabapentin Yes Alicia [address] [facility] [facility] Clinics dexamethaso dexamethaso No dexamethas [place] ne 6 mg ne 6 mg one 6 mg Famil y tablet tablet tablet Practic e Diclofenac Diclofenac Yes Alicia TAKE [address] [facility] Sodium Sodium Millender TABLET BY L ukes - MOUTH Memoria TWICE A l DAY WITH [facility] MEALS ent Clinics diclofenac diclofenac No diclofenac [place] 1 % topical 1 % topical 1 % F amily gel APPLY gel APPLY topical Pr actic TO AFFECTED TO AFFECTED gel APPLY e AREA TWICE AREA TWICE TO A DAY A DAY AFFECTED AREA TWICE A DAY Metformin Metformin Yes Alicia [address] HCl HCl [place] with meals [facility] - [facility] ent Clinics diclofenac diclofenac No diclofenac [place] sodium 75 sodium 75 sodium 75 Family mg mg mg Practic tablet,janeen tablet,janeen tablet,del e yed release yed release ayed release gabapentin gabapentin No 1capsul BID gabapentin [place] 300 mg 300 mg e(s) 300 mg Family capsule capsule capsule Practi c Take 1 Take 1 Take 1 e capsule capsule capsule twice a day twice a day twice a by oral by oral day by route. route. oral route. gabapentin gabapentin No gabapentin [place] 800 mg 800 mg 800 mg Family tablet TAKE tablet TAKE tablet Practic 1 TABLET BY 1 TABLET BY TAKE 1 e MOUTH THREE MOUTH THREE TABLET BY TIMES A DAY TIMES A DAY MOUTH THREE TIMES A DAY glimepiride glimepiride No glimepirid [place] 2 mg tablet 2 mg tablet e 2 mg Family TAKE 1 TAKE 1 tablet Practic TABLET WITH TABLET WITH TAKE 1 e BREAKFAST BREAKFAST TABLET OR THE OR THE WITH FIRST MAIN FIRST MAIN BREAKFAST MEAL OF THE MEAL OF THE OR THE DAY ONCE A DAY ONCE A FIRST MAIN DAY FOR DAY FOR MEAL OF DIABETES DIABETES THE DAY ONCE A DAY FOR DIABETES hydroxyzine hydroxyzine No 1 TID hydroxyzin [place] HCl 25 mg HCl 25 mg e HCl 25 F amily tablet Take tablet Take mg tablet Practic 1 tablet 3 1 tablet 3 Take 1 e times a day times a day tablet 3 by oral by oral times a route as route as day by directed. directed. oral route as directed. lancing lancing No lancing Villag e device USE device USE device USE Family WITH WITH WITH Practic LANCETS TO LANCETS TO LANCETS TO e TEST BLOOD TEST BLOOD TEST BLOOD GLUCOSE GLUCOSE GLUCOSE levofloxaci levofloxaci No levofloxac [facility] n 500 mg n 500 mg in 500 mg Fa angel tablet tablet tablet Practic e lisinopril lisinopril No lisinopril [facility] 10 mg 10 mg 10 mg Family tablet tablet tablet Practic e lisinopril lisinopril No lisinopril [facility] 20 mg 20 mg 20 mg Family tablet Take tablet Take tablet Practic 1 tablet 1 tablet Take 1 e every day every day tablet by oral by oral every day route. route. by oral route. meloxicam meloxicam No meloxicam [facility] 7.5 mg 7.5 mg 7.5 mg Family tablet Take tablet Take tablet Practic 1 tablet 1 tablet Take 1 e every day every day tablet by oral by oral every day route. route. by oral route. metformin metformin No metformin [facility] 1,000 mg 1,000 mg 1,000 mg Fam mara tablet Take tablet Take tablet Practic 1 tablet 1 tablet Take 1 e twice a day twice a day tablet by oral by oral twice a route. route. day by oral route. metformin metformin No metformin [facility] 500 mg 500 mg 500 mg Family tablet tablet tablet Practic e methylpredn methylpredn No methylpred [facility] isolone 4 isolone 4 nisolone 4 Family mg tablets mg tablets mg tablets Practic in a dose in a dose in a dose e pack pack pack ondansetron ondansetron No ondansetro [facility] HCl 4 mg HCl 4 mg n HCl 4 mg F amily tablet tablet tablet Practic e OneTouch OneTouch No OneTouch Glenn charo Verio test Verio test Verio test Family strips Use strips Use strips Use Practic to test to test to test e blood blood blood glucose glucose glucose once a day once a day once a day pregabalin pregabalin No pregabalin [facility] 75 mg 75 mg 75 mg Family capsule capsule capsule Practi c e Vital Signs Vital Name Observation Time Observation Value Comments Source Height 2020-02-12 00:00:00 63 [in_i] [facility] Height 2019-12-11 00:00:00 63 [in_i] [facility] BMI (Body Mass 2019-12-11 00:00:00 28.9 kg/m2 [facility] Family Index) Practice Body Weight 2019-12-11 00:00:00 163 [lb_av] [facility] BP Diastolic 2018-11-14 00:00:00 83 mm[Hg] [facility] Height 2018-11-14 00:00:00 64 [in_i] [facility] BMI (Body Mass 2018-11-14 00:00:00 25.5 kg[facility]m2 [facility] BP Systolic 2018-11-14 00:00:00 149 mm[Hg] [facility] Body Weight 2018-11-14 00:00:00 148.4 [lb_av] [facility] Procedures Procedure Date / Time Performed Performing Clinician Sour e TYMPANOMETRY 2018-11-14 00:00:00 [facility] Plan of Care Planned Activity Planned Date Details Comments Source Instructions [facility] Encounters Start End Encounter Admission Attending Care Care Encounter Source Date/Time Date/Time Type Type Clinicians Facility Department ID 2020-06-21 2020-06-21 Pre[facility] [place] - [id number] [facility] 00:00:00 00:00:00 [facility] Venu jennings COSMETICS SUPERVISOR: Medical - Practi jesus [address] [email or web address], [place] [address], [place] [address] , Ph. 2020-02-12 2020-02-12 Prerna [facility] [place] - [id number] [facility] 00:00:00 00:00:00 [facility] Venu jennings COSMETICS SUPERVISOR: Medical - Pracmargoth lee [address] [email or web address] [facility], [place] [address], [place] [address] , Ph. 2020-02-03 2020-02-03 [facility] [id number] 11:00:00 11:00:00 [facility] Medicine [facility] 2019-12-28 2019-12-28 [facility] [id number] 00:00:00 00:00:00 [facility] [id number] Surgical [id number] Specialti [id number] es [address] [place] 2019-12-28 2019-12-28 [facility] [id number] 00:00:00 00:00:00 [facility] [id number] Surgical [id number] Specialti [id number] es 198 [place] 2019-12-23 2019-12-23 Outpatient [facility] [id number] [address] 10:54:00 10:54:00 [facility] Medical Group l Group Outpati ent [facility] 2019-12-11 2019-12-11 [facility] [place] - [id number] [facility] 00:00:00 00:00:00 [facility] mara jennings COSMETICS SUPERVISOR: Medical - Practi c [address] [email or web address], [place] [address], [place] [address] , Ph. 2019-12-10 2019-12-10 Office [facility] [id number] 15:07:12 15:45:01 Visit [facility] [id number] Surgical [id number] Specialti [id number] es 198 [place] 2019-12-03 2019-12-03 [facility] [id number] 14:42:00 14:42:00 t [facility] Medicine Outpati ent [facility] 2019-10-27 2019-10-27 Outpatient Dieter Garciast [id number] 16:30:00 16:30:00 [facility] - [facility] Joint [facility] a Clinic of [facility] ent Clinics 2019-10-20 2019-10-20 [facility] [id number] 22:55:00 22:55:00 [facility] ent Clinics 2019-10-20 2019-10-20 [facility] [id number] 09:40:00 09:40:00 [facility] ent [facility] 2018-11-14 2018-11-14 [facility] [place] - [id number] [facility] 00:00:00 00:00:00 MD Tonya: [address], [facility] [address] , Ph. Results Test Description Test Time Test Comments Results Result Comments Source tympanogram 2018-11-14 10:54:48 Test Item Value Reference Range Interpretation Comme nts Right (test code = Right) Type C Peak is on Left Left (test code = Left) Type B Curve Flat [facility]
--- NOTE | 2020-09-08 15:05 | RAD REPORT ---
EXAM DESCRIPTION: RAD - Shoulder Left 2 View - 09/08/2020 2:21 pm CLINICAL HISTORY: Left shoulder pain FINDINGS: No fracture or dislocation is seen. Moderate osteoarthritis involves the AC joint consisting of osteophytes joint space narrowing.
[2020-09-08] MEDS ORDERED: ONDANSETRON 4 MG (ODT) TAB ONE (15:26)
[2020-09-08] MEDS ORDERED: MORPHINE 4 MG/ML SYR ONE (15:26)
--- NOTE | 2020-09-08 15:53 | EDPHYS ---
Physician Documentation [facility] Name: Yadira Land Age: 70 yrs Sex: Female : 1950 Arrival Date: 09/08/2020 Time: 13:18 Bed 24 Private MD: ED Physician Bala Webb HPI: 09/08 13:48 This 70 yrs old Female presents to ER via Ambulatory with complaints of L Arm jmm Pain. 13:48 Onset: The symptoms/episode began/occurred acutely. Onset: The symptoms/episode jmm began/occurred gradually, 4 day(s) ago. Modifying factors: The symptoms are alleviated by nothing. the symptoms are aggravated by nothing. Associated signs and symptoms: Pertinent negatives: fever, numbness. This is a 70 year old female with a history of DM, HTN that presents to the ED with complaints of left shoulder pain. Patient denies cp or sob. Denies trauma. Pain localized to the left deltoid region. Historical: - Allergies: 13:26 No Known Allergies; ll1 - PMHx: 13:26 Diabetes - NIDDM; Hypertension; ll1 - PSHx: 13:26 Cholecystectomy; Appendectomy; ll1 - Immunization history:: Flu vaccine is not up to date. - Social history:: Smoking status: Patient denies any tobacco usage or history of. ROS: 13:48 Constitutional: Negative for fever, chills, and weight loss, Cardiovascular: Negative jmm for chest pain, palpitations, and edema, Respiratory: Negative for shortness of breath, cough, wheezing, and pleuritic chest pain. 13:48 MS/extremity: Positive for pain. 13:48 All other systems are negative. Exam: 13:48 Head/Face: atraumatic. Eyes: EOMI, no conjunctival erythema appreciated ENT: Moist jmm Mucus Membranes Neck: Trachea midline, Supple Chest/axilla: Normal chest wall appearance and motion. Cardiovascular: Regular rate and rhythm. No edema appreciated Respiratory: Normal respirations, no respiratory distress appreciated Abdomen/GI: Non distended, soft Back: Normal ROM Skin: General appearance color normal 13:48 Constitutional: The patient appears alert, awake, uncomfortable. 13:48 Musculoskeletal/extremity: left deltoid ttp, no erythema or swelling appreciated, compartments are soft, full engineer geophysical laboratory strength, pain on abduction, full radial pulse, NVI. 13:48 Skin: Appearance: Color: normal in color. 13:48 Neuro: Orientation: is normal, Mentation: is normal, Memory: is normal. 13:48 Psych: Behavior/mood is pleasant, cooperative. 15:44 ECG was reviewed by the Attending Physician. [facility] Vital Signs: 13:24 BP 139 / 88; Pulse 100; Resp 17; Temp 98.5; Pulse Ox 100% ; Weight 68.04 kg; Height 5 ll1 ft. 4 in. (162.56 cm); Pain 7/10; 13:24 Body Mass Index 25.75 (68.04 kg, 162.56 cm) ll1 MDM: 14:52 Patient medically screened. [facility] 15:49 Data reviewed: vital signs, nurses notes. Counseling: I had a detailed discussion with [facility] the patient and/or guardian regarding: the historical points, exam findings, and any diagnostic results supporting the discharge/admit diagnosis, radiology results, the need for outpatient follow up, to return to the emergency department if symptoms worsen or persist or if there are any questions or concerns that arise at home. ED course: Pain decreased in the ED. Advised to follow up with ortho for further evaluation. Patient is otherwise given strict return precautions. patient understood and agrees with the plan of care. . 09/08 13:47 Order name: Shoulder Left (2 View) XRAY; Complete Time: 15:08 kb 09/08 15:12 Order name: EKG - Nurse/Tech; Complete Time: 15:31 [facility] EC:44 Rate is 87 beats/min. Rhythm is regular. QRS [place] is Normal. CT interval is normal. QRS jmm interval is normal. QT interval is normal. No Q waves. T waves are Normal. No ST changes noted. Reviewed by me. Administered Medications: 15:20 Drug: morphine 4 mg Route: IM; Site: right deltoid; ss 15:59 Follow up: Response: No adverse reaction; Medication administered at discharge. ss 15:20 Drug: Zofran (Ondansetron) 4 mg Route: PO; ss 15:59 Follow up: Response: No adverse reaction ss Disposition: 09/09 06:53 Co-signature as Attending Physician, Bala Webb MD I agree with the assessment and kdr plan of care. Disposition: 09/08/20 15:52 Discharged to Home. Impression: Pain in left shoulder. - Condition is Stable. - Discharge Instructions: Shoulder Pain. - Prescriptions for orphenadrine citrate 100 mg Oral Tablet Sustained Release - take 1 tablet by ORAL route 2 times per day As needed; 20 tablet. - Medication Reconciliation Form, Thank You Letter, Antibiotic Education, Prescription Opioid Use form. - Follow up: Private Physician; When: As needed; Reason: Recheck today's complaints, Continuance of care, Re-evaluation by your physician. Signatures: Dispatcher [employer] EDMS Bala Webb MD MD [facility] PA PA jmm Smirch, Shelby, RN RN ss Caren Mullins RN RN ll1 Corrections: (The following items were deleted from the chart) 09/08 16:00 15:52 09/08/2020 15:52 Discharged to Home. Impression: Pain in left shoulder. Condition ss is Stable. Forms are Medication Reconciliation Form, Thank You Letter, Antibiotic Education, Prescription Opioid Use. Follow up: Private Physician; When: As needed; Reason: Recheck today's complaints, Continuance of care, Re-evaluation by your physician. cira
--- NOTE | 2020-09-08 15:53 | ER ---
Nurse's Notes [facility] Name: Yadira Land Age: 70 yrs Sex: Female : 1950 Arrival Date: 09/08/2020 Time: 13:18 Bed 24 Private MD: Diagnosis: Pain in left shoulder Presentation: 09/08 13:24 Chief complaint: Patient states: L shoulder pain since Saturday. Unable to lift L arm up ll1 fully. No trauma or falls. PMS intact. Coronavirus screen: Client denies travel out of the [place] in the last 14 days. At this time, the client does not indicate any symptoms associated with coronavirus-19. Ebola Screen: Patient denies travel to an Ebola-affected area in the 21 days before illness onset. Initial Sepsis Screen: Does the patient meet any 2 criteria? HR > 90 bpm. No. Patient's initial sepsis screen is negative. Does the patient have a suspected source of infection? Yes: Bone or joint infection. Risk Assessment: Do you want to hurt yourself or someone else? Patient reports no desire to harm self or others. Onset of symptoms was September 04, 2020. 13:24 Method Of Arrival: Ambulatory ll1 13:24 Acuity: KARSTEN 4 ll1 Historical: - Allergies: 13:26 No Known Allergies; ll1 - PMHx: 13:26 Diabetes - NIDDM; Hypertension; ll1 - PSHx: 13:26 Cholecystectomy; Appendectomy; ll1 - Immunization history:: Flu vaccine is not up to date. - Social history:: Smoking status: Patient denies any tobacco usage or history of. Screenin:29 Abuse screen: Denies threats or abuse. Denies injuries from another. Nutritional ss screening: No deficits noted. Tuberculosis screening: Never had TB. Fall Risk None identified. Assessment: 14:29 General: Appears uncomfortable, Behavior is calm, cooperative, Denies fever, feeling ss ill, fatigue, chills. Pain: Complains of pain in L shoulder, L upper arm Pain currently is 7 out of 10 on a pain scale. Quality of pain is described as aching, Pain began 4 days ago Is continuous. Neuro: Level of Consciousness is awake, alert, obeys commands, Oriented to person, place, time, situation, [employer] Person are equal bilaterally. Cardiovascular: Capillary refill < 3 seconds is brisk in bilateral fingers Patient's skin is warm and dry. Cardiovascular: Denies chest pain, lightheadedness, shortness of breath. Respiratory: Airway is patent Respiratory effort is even, unlabored. : No signs and/or symptoms were reported regarding the genitourinary system. EENT: Nares are clear Oral mucosa is moist. Derm: Skin is intact, is healthy with good turgor, Skin is dry, Skin is pink, warm \T\ dry. normal. Musculoskeletal: Circulation, motion, and sensation intact. Range of motion: intact in all extremities, Swelling absent. 15:59 Reassessment: Patient appears in no apparent distress at this time. Patient and/or ss family updated on plan of care and expected duration. Pain level reassessed. Patient is alert, oriented x 3, equal unlabored respirations, skin warm/dry/pink. Pt reports some pain relief after Morphine administration. Verbalizes understanding importance of follow up care with Dr. Keith. Vital Signs: 13:24 BP 139 / 88; Pulse 100; Resp 17; Temp 98.5; Pulse Ox 100% ; Weight 68.04 kg; Height 5 ll1 ft. 4 in. (162.56 cm); Pain 7/10; 13:24 Body Mass Index 25.75 (68.04 kg, 162.56 cm) ll1 ED Course: 13:18 Patient arrived in ED. ds1 13:25 Triage completed. ll1 13:26 Arm band placed on. ll1 14:21 Shoulder Left (2 View) XRAY In Process Unspecified. EDMS 14:29 Patient has correct armband on for positive identification. ss 14:29 No provider procedures requiring assistance completed. Patient did not have IV access ss during this emergency room visit. 14:34 Rio Lezama PA is PHCP. [facility] 14:34 Bala Webb MD is Attending Physician. [facility] 15:04 Amie Arthur RN is Primary Nurse. ss Administered Medications: 15:20 Drug: morphine 4 mg Route: IM; Site: right deltoid; ss 15:59 Follow up: Response: No adverse reaction; Medication administered at discharge. ss 15:20 Drug: Zofran (Ondansetron) 4 mg Route: PO; ss 15:59 Follow up: Response: No adverse reaction ss Outcome: 15:52 Discharge ordered by . cira 15:57 Discharged to home ambulatory, with family. 15:57 Condition: good 15:57 Discharge instructions given to patient, Instructed on discharge instructions, follow up and referral plans. medication usage, Demonstrated understanding of instructions, follow-up care, medications, Prescriptions given X 1. 16:00 Patient left the ED. Signatures: Dispatcher [employer] EDMS Rio Lezama PA PA jmm Sanford, Demi ds1 Amie Arthur RN RN Caren Mullins RN RN ll1
[2020-09-08 16:05] VITALS: BP 139/88; TEMP 98.5; O2SAT 100
== END 2020-09-08 16:00 | disposition home or self-care (01) ==
LOC: ER 13:17
DX: M25.512 Pain in left shoulder (principal); I10 Essential (primary) hypertension; E11.9 Type 2 diabetes mellitus without complications
CPT/HCPCS: 93005; 96372; 99283

== ENCOUNTER 2021-03-19 16:50 | Emergency (ER) | payer OTHER ==
[2021-03-19] MEDS ORDERED: MORPHINE 2 MG/ML SYR ONE (19:07)
[2021-03-19] MEDS ORDERED: ONDANSETRON 4 MG/2 ML VIAL ONE (19:07)
--- NOTE | 2021-03-19 19:10 | RAD REPORT ---
EXAM DESCRIPTION: RAD - Knee Right 3 View - 03/19/2021 6:51 pm CLINICAL HISTORY: PAIN COMPARISON: <Comparisons> FINDINGS: Moderate joint effusion noted. Severe osteoarthritis is seen, greatest in the medial jamal rtment where [id number] is noted. Lucency is seen in the lateral tibial plateau close to the region of the tibial spines. A fracture is possible. Recommend CT of the knee for further evaluation.
[2021-03-19 19:30] LABS: Absolute Lymphocytes (CBC) 1.9 K/uL (0.7-4.9); Basophils % 0.4 % (0-1.3); Hematocrit 34.8 % (36.0-45.0); Lymphocytes % 23.6 % (15.3-44.8); MPV 10.2 fL (7.6-11.3); RBC Red Blood Cell Count 4.03 M/uL (3.86-4.86)
--- NOTE | 2021-03-19 19:49 | RAD REPORT ---
EXAM DESCRIPTION: US - Extremity Venous Uni Ltd - 03/19/2021 7:19 pm CLINICAL HISTORY: PAIN Leg swelling and edema. COMPARISON: <Comparisons> FINDINGS: Right lower extremity venous system was interrogated with Doppler technique. Normal flow, compressibility and augmentation was noted. There is no DVT present. IMPRESSION: No evidence of right lower extremity deep venous thrombosis.
[2021-03-19 19:59] LABS: Potassium 4.2 mmol/L (3.5-5.1)
[2021-03-19 20:00] LABS: Uric Acid 5.5 mg/dL (2.6-6.0)
--- NOTE | 2021-03-19 20:43 | RAD REPORT ---
EXAM DESCRIPTION: CT - Knee Right Wo Cont - 03/19/2021 8:25 pm CLINICAL HISTORY: leg swelling Pain and swelling COMPARISON: Lumbar Spine 3 Views dated 11/23/2020 FINDINGS: Severe medial compartment space osteoarthritis is present with joint space loss, osteophyt osis and [id number]. No acute fracture or dislocation seen. Moderate joint effusion is present. Significant popliteal atherosclerosis evident. No soft tissue mass or hematoma. IMPRESSION: No acute fracture or dislocation suspected. Severe medial compartment space osteoarthritis. Moderate joint effusion. All CT scans are performed using dose optimization technique as appropriate and may include automated exposure control or mA/KV adjustment according to patient size.
--- NOTE | 2021-03-19 21:21 | ER ---
Nurse's Notes [facility] Name: Yadira Land Age: 70 yrs Sex: Female : 1950 Arrival Date: 03/19/2021 Time: 16:56 Bed 18 Private MD: Nadeen Rivera C Diagnosis: Pain in right knee Presentation: 03/19 17:00 Chief complaint: Patient states: R knee pain and swelling continues since her last ll1 visit here 2 weeks ago. Pain R back radiates into R leg. No new trauma or falls. L arm pain, bruising since last week while carrying a large sac. Coronavirus screen: Vaccine status: Patient reports receiving the 2nd dose of the covid vaccine. Client denies travel out of the [place] in the last 14 days. At this time, the client does not indicate any symptoms associated with coronavirus-19. Ebola Screen: Patient denies travel to an Ebola-affected area in the 21 days before illness onset. Initial Sepsis Screen: Does the patient meet any 2 criteria? No. Patient's initial sepsis screen is negative. Does the patient have a suspected source of infection? Yes: Bone or joint infection. Risk Assessment: Do you want to hurt yourself or someone else? Patient reports no desire to harm self or others. Onset of symptoms was February 26, 2021. 17:00 Method Of Arrival: Wheelchair ll1 17:00 Acuity: KARSTEN 3 ll1 Triage Assessment: 19:30 General: Appears uncomfortable. Pain: Complains of pain in right knee Pain at worst was mr2 8 out of 10 on a pain scale. Quality of pain is described as aching, crampy, Pain began 1 year Noted to be grimacing, guarding. Historical: - Allergies: 17:02 No Known Allergies; ll1 - PMHx: 17:02 Diabetes - NIDDM; Hypertension; ll1 - PSHx: 17:02 2 abdominal surgeries to remove mass; Cholecystectomy; Appendectomy; ll1 - Immunization history:: Client reports receiving the 2nd dose of the Covid vaccine. - Social history:: Smoking status: Patient denies any tobacco usage or history of. Screenin:26 Abuse screen: Denies threats or abuse. Nutritional screening: No deficits noted. sl2 Tuberculosis screening: No symptoms or risk factors identified. Fall Risk None identified. Assessment: 17:26 General: Appears in no apparent distress. Behavior is calm, cooperative, appropriate sl2 for age. Pain: Complains of pain in right knee Pain radiates to Right leg Pain currently is 6 out of 10 on a pain scale. Quality of pain is described as aching, Pain began > 2 weeks ago. Neuro: No deficits noted. Cardiovascular: No deficits noted. Respiratory: No deficits noted. GI: No deficits noted. : No deficits noted. EENT: No deficits noted. Derm: No deficits noted. Musculoskeletal: No deficits noted. Vital Signs: 17:00 BP 119 / 71; Pulse 88; Resp 17; Temp 97.5; Pulse Ox 100% ; Weight 68.95 kg; Height 5 ll1 ft. 4 in. (162.56 cm); Pain 8/10; 21:30 BP 124 / 77; Pulse 85; Resp 17; Temp 98.1; Pulse Ox 100% on R/A; mr2 17:00 Body Mass Index 26.09 (68.95 kg, 162.56 cm) ll1 ED Course: 16:56 Patient arrived in ED. as 16:56 Nadeen Rivera MD is Private Physician. as 17:02 Triage completed. ll1 17:03 Arm band placed on. ll1 17:14 Rio Lezama PA is PHCP. jm 17:14 Jorge Craven MD is Attending Physician. jmm 17:17 Baylee Carrillo, RN is Primary Nurse. sl2 17:26 Patient has correct armband on for positive identification. sl2 18:51 Knee Right 3 View XRAY In Process Unspecified. EDMS 19:19 US Extremity Venous Unilateral Ltd In Process Unspecified. EDMS 20:00 No provider procedures requiring assistance completed. mr2 20:26 Knee Right Wo Cont In Process Unspecified. EDMS 20:49 Primary Nurse role handed off by Baylee Carrillo, RN tt3 21:06 Anand Royal, MAIKEL is Primary Nurse. mr2 21:19 Camden Chamorro MD is Referral Physician. jmm 22:10 IV discontinued. mr2 Administered Medications: 18:55 Drug: Zofran (Ondansetron) 4 mg Route: IVP; Site: right antecubital; sl2 18:57 Drug: morphine 2 mg Route: IVP; Site: right antecubital; sl2 21:07 Drug: morphine 4 mg Route: IVP; Site: right antecubital; mr2 Outcome: 21:20 Discharge ordered by . cira 22:10 Discharged to home via wheelchair, with family. mr2 22:10 Condition: stable 22:10 Discharge instructions given to patient, Instructed on discharge instructions, follow up and referral plans. Demonstrated understanding of follow-up care, Prescriptions given X 1. 22:16 Patient left the ED. mr2 Signatures: Dispatcher [employer] EDMS Rio Lezama PA PA jmm Martinez, Amelia as Lewis, Lynsay, RN RN ll1 Kervin Vela tt3 Anand Royal RN RN mr2 Baylee Carrillo RN RN sl2
--- NOTE | 2021-03-19 21:21 | EDPHYS ---
Physician Documentation [facility] Name: Yadira Land Age: 70 yrs Sex: Female : 1950 Arrival Date: 03/19/2021 Time: 16:56 Bed 18 Private MD: Nadeen Rivera C ED Physician Jorge Craven HPI: 03/19 21:15 This 70 yrs old Female presents to ER via Wheelchair with complaints of Leg jmm Swelling. 21:15 The patient presents with pain. Onset: The symptoms/episode began/occurred 1 year(s) jmm ago. Modifying factors: The symptoms are alleviated by nothing. the symptoms are aggravated by movement. Associated signs and symptoms: Pertinent positives: swelling, Pertinent negatives fever. Is a 70-year-old female with a history of diabetes mellitus, hypertension the presents emerged part with complaints of ongoing right knee pain which began approximately 1 year ago. Patient has been treated with anti-inflammatories. Patient states pain is intensified with increased swelling today.. Historical: - Allergies: 17:02 No Known Allergies; ll1 - PMHx: 17:02 Diabetes - NIDDM; Hypertension; ll1 - PSHx: 17:02 2 abdominal surgeries to remove mass; Cholecystectomy; Appendectomy; ll1 - Immunization history:: Client reports receiving the 2nd dose of the Covid vaccine. - Social history:: Smoking status: Patient denies any tobacco usage or history of. ROS: 21:15 Constitutional: Negative for fever, chills, and weight loss, Cardiovascular: Negative jmm for chest pain, palpitations, and edema, Respiratory: Negative for shortness of breath, cough, wheezing, and pleuritic chest pain. 21:15 MS/extremity: Positive for pain. 21:15 All other systems are negative. Exam: 21:15 Constitutional: This is a well developed, well nourished patient who is awake, alert, jmm and in no acute distress. Head/Face: atraumatic. Eyes: EOMI, no conjunctival erythema appreciated ENT: Moist Mucus Membranes Neck: Trachea midline, Supple Chest/axilla: Normal chest wall appearance and motion. Cardiovascular: Regular rate and rhythm. No edema appreciated Respiratory: Normal respirations, no respiratory distress appreciated Abdomen/GI: Non distended, soft Back: Normal ROM Skin: General appearance color normal 21:15 Musculoskeletal/extremity: ROM: intact in all extremities, Painful range of motion appreciated to the right knee. Mild swelling appreciated, compartments are soft, full distal dorsalis pedis pulse, neurovascular intact. 21:15 Skin: Appearance: Color: normal in color. 21:15 Neuro: Orientation: is normal, Mentation: is normal, Memory: is normal. 21:15 Psych: Behavior/mood is pleasant, cooperative. Vital Signs: 17:00 BP 119 / 71; Pulse 88; Resp 17; Temp 97.5; Pulse Ox 100% ; Weight 68.95 kg; Height 5 ll1 ft. 4 in. (162.56 cm); Pain 8/10; 21:30 BP 124 / 77; Pulse 85; Resp 17; Temp 98.1; Pulse Ox 100% on R/A; mr2 17:00 Body Mass Index 26.09 (68.95 kg, 162.56 cm) ll1 MDM: 17:21 Patient medically screened. [facility] 21:18 Data reviewed: vital signs, nurses notes. Counseling: I had a detailed discussion with cira the patient and/or guardian regarding: the historical points, exam findings, and any diagnostic results supporting the discharge/admit diagnosis, radiology results, the need for outpatient follow up, to return to the emergency department if symptoms worsen or persist or if there are any questions or concerns that arise at home. ED course: CT reveals severe osteoarthritis. I do not suspect septic joint. Patient is afebrile, normal white blood cell count. Patient states pain is similar to left knee before she had a replacement. Advised to follow-up with orthopedics and otherwise given strict return precautions. Patient understood and agrees plan of care.. 03/19 18:29 Order name: Uric Acid; Complete Time: 20:06 [facility] 03/19 18:29 Order name: CBC with Diff; Complete Time: 19:38 [facility] 03/19 18:29 Order name: Knee Right 3 View XRAY; Complete Time: 19:13 [facility] 03/19 18: Order name: BMP; Complete Time: 20:06 [facility] 03/19 18:30 Order name: US Extremity Venous Unilateral Ltd; Complete Time: 19:56 [facility] 03/19 18:29 Order name: Saline Lock; Complete Time: 19:06 [facility] 03/19 20:25 Order name: Knee Right Wo Cont; Complete Time: 20:49 [facility] 03/19 21:20 Order name: Scout wrap-joint jmm Administered Medications: 18:55 Drug: Zofran (Ondansetron) 4 mg Route: IVP; Site: right antecubital; sl2 18:57 Drug: morphine 2 mg Route: IVP; Site: right antecubital; sl2 21:07 Drug: morphine 4 mg Route: IVP; Site: right antecubital; mr2 Disposition: 03/20 10:40 Co-signature as Attending Physician, Jorge Craven MD I agree with the assessment and kirit plan of care. Disposition Summary: 03/19/21 21:20 Discharge Ordered Location: Home jm Condition: Stable jmm Diagnosis - Pain in right knee jmm Followup: jm - With: Camden Chamorro MD - When: 2 - 3 days - Reason: Recheck today's complaints, Continuance of care, Re-evaluation by your physician Discharge Instructions: - Discharge Summary Sheet jm - Acute Knee Pain, Adult jm Forms: - Medication Reconciliation Form [facility] - Thank You Letter [facility] - Antibiotic Education [facility] - Prescription Opioid Use [facility] Prescriptions: - Ultracet 37.5-325 mg Oral Tablet - take 1 tablet by ORAL route every 6 hours - for up to 5 days; do not exceed 8 jmm tablets per day.; 12 tablet; Refills: 0, Product Selection Permitted Signatures: Dispatcher [employer] Jorge Barrett MD MD cha Mickail, Joel, PA PA jmm Caren Mullins RN RN ll1 Anand Royal RN RN mr2 Baylee Carrillo RN RN sl2 Corrections: (The following items were deleted from the chart) 03/19 20:25 20:09 CT RIGHT KNEE WO CONTRAST ordered. EDNJ EDMS
[2021-03-19] MEDS ORDERED: MORPHINE 4 MG/ML SYR ONE (21:26)
[2021-03-19 22:22] VITALS: O2SAT 100
[2021-03-19 22:24] VITALS: BP 124/77; TEMP 98.1
== END 2021-03-19 22:16 | disposition home or self-care (01) ==
LOC: ER 16:50
DX: M25.561 Pain in right knee (principal)
CPT/HCPCS: 85025; 80048; 36415; 84550; 73700; 73562; 93971; 96375; 96374; 99283; J2270; J2405

== ENCOUNTER 2021-05-22 15:45 | Inpatient (IN) | payer OTHER ==
--- OUTSIDE RECORDS SUMMARY | 2021-05-22 15:49 | XMS REPORT | Continuity of Care Document ---
:1950 Author Organization [facility] t Address [address] [place] [address] Dr. Sharma [address] [place] [address] Care Team Providers Name Role Phone Cirilo Keith Tatiana Primary Care Physician Jean CRANE Attending Clinician Unavailable Carlos OROZCO S Attending Clinician [place] PATE Attending Clinician Unavailable MILA_S Attending Clinician Unavailable Fozia-Mbayo_A_AH Attending Clinician Unavailable Raju_P Attending Clinician Unavailable Jean Crane MD Attending Clinician Brody ARANGO Attending Clinician Unavailable FREDDY GALVAN Attending Clinician Unavailable CURRY_S Admitting Clinician Unavailable Fozia-Mbayo_A_AH Admitting Clinician Unavailable Raju_P Admitting Clinician Unavailable Payers Payer Name Policy Type Policy Number Effective Date Expiration Date [place] GARCIA [id number] 2021 00:00:00 [facility] CYNDEEWMushtaq 2020 (MEDICARE 00:00:00 [place]PLACEMENT H[place]) [employer] [facility] [place] [id number] 2019 [place]АН[place]PLUS (MEDICARE 00:00:00 REPLACEMENT/ADVANTA GE - HMO) [employer] [facility] [place] [id number] 2018 (MEDICARE 00:00:00 REPLACEMENT/ADVANTA GE - HMO) JOSE (JOSE) [id number] 2005 00:00:00 StatusPage MINDA PLUS [id number] 2016 CHOICE 00:00:00 JOSE [id number] 2005 00:00:00 Problems Condition Condition Condition Status Onset Resolution Last Treating Co mments Source Name Details Category Date Date Treatment Clinician Date Senile Senile Problem Active [facility] purpura Purpura 1-26 Family 00:00: Practic 00 e Peripheral Peripheral Problem Active [facility] vascular Vascular 1-26 Family disease Disease 00:00: Practic 00 e Type 2 Type 2 Problem Active [facility] diabetes Diabetes 9-17 Family mellitus Mellitus 00:00: Practi c with with 00 e peripheral Peripheral angiopathy Angiopathy Diabetic Diabetic Problem Active Holder ge peripheral Peripheral 7-17 Fa angel neuropathy Neuropathy 00:00: Pr actic 00 e Major Major Problem Active [facility] depressive Depressive 7-17 Fa angel disorder Disorder 00:00: Practi c 00 e Essential Essential Problem Active Glenn charo hypertensi Hypertensi 7-17 Fa angel on on 00:00: Practic 00 e Bilateral Bilateral Problem Active Glenn charo knee pain Knee Pain 7-17 Fami ly 00:00: Practic 00 e Febrile Febrile Disease Active 2018- Univers 1-18 ity of 00:00: [place] [facility] Burn Burn Disease Active 2018- Univers 1-16 ity of 00:00: [facility] Lumbar Lumbar Disease Active Univers radiculopa radiculopa 7-19 it y of thy thy 00:00: [facility] Total knee Total knee Disease Active U nivers replacemen replacemen 7-18 it y of t status t status 00:00: [facility] Left knee Left knee Disease Active Uni vers pain pain 3-10 ity of 00:: [place] [facility] Left knee Left knee Disease Active Uni vers pain pain 1-21 ity of 00:00: [place] [facility] Trigger Trigger Problem Active [facility] finger, [...] with Outpati hyperglyce hyperglyce en t [facility] Clinics Essential Essential Problem Active [facility] hypertensi hypertensi Safia kes - on on Memoria l [facility] Trigger Trigger Problem Active [facility] finger, finger, [facility] - unspecifie unspecifie Me morimikey d finger, d finger, l unspecifie unspecifie Ou tpati d d ent laterality laterality Cl inics Allergic Allergic Problem Active [facility] rhinitis rhinitis [facility] - [facility]oria l [facility] Depression Depression Problem Active [facility] with with [facility] - anxiety anxiety Memoria l [facility] Chronic Chronic Problem Active [facility] pain pain [facility]ukes - syndrome syndrome Memori a l [facility] Seasonal Seasonal Problem Active [facility] t allergies allergies Luke s - Memoria l [facility] Clinics Vulvovagin Vulvovagin Problem Active [facility] itis itis [facility] - Memoria l [facility]ics Lipoma of Lipoma of Problem Active [facility] torso torso [facility] - [facility] Screening Screening Problem Active [facility] for colon for colon Luke s - cancer cancer Memoria l [facility] Screening Screening Problem Active [facility] for breast for breast Safia kes - cancer cancer Memoria l [facility] Primary Primary Problem Active [facility] osteoarthr osteoarthr Safia kes - itis of itis of Memoria left hand left hand l [facility]ics Osteopenia Osteopenia Problem Active [facility] of hand, of hand, Lukes - unspecifie unspecifie Me moria d d l laterality laterality Ou tpati ent Clinics Diabetes Diabetes Problem Active [facility] t mellitus, mellitus, Luke s - type 2 type 2 Memoria l [facility] Hospital Hospital Problem Active [facility] t discharge discharge Luke s - follow-up follow-up Juan rico l [facility] Clinics Acute pain Acute pain Problem Active [facility] of right of right [facility] - knee knee [facility]oria l [facility]ics Effusion Effusion Problem Active [facility] of knee of knee [facility] - joint joint Memoria right right l [facility] Primary Primary Problem Active [facility] osteoarthr osteoarthr Safia kes - itis, itis, Memoria right hand right hand l [facility] Clinics Primary Primary Problem Active [facility] osteoarthr osteoarthr Safia kes - itis itis Memoria involving involving l multiple multiple Outpat i joints joints ent Clinics Cough Cough Problem Active [facility] Common Common Problem Active [facility] cold virus cold virus Safia kes - Memoria l [facility] Exposure Exposure Problem Active [facility] to the flu to the flu Safia kes - Memoria l [facility] Body aches Body aches Problem Active [facility] - [facility] Pain in Pain in Problem Active [facility] left knee left knee Luke s - Memoria l [facility] Other Other Diagnosis Active [facility] chronic chronic [facility] - pain pain Memoria l [facility] Allergies, Adverse Reactions, Alerts Allergy Allergy Status Severity Reaction(s) Onset Inactive Treating Comm ents Source Name Type Date Date Clinician NO KNOWN Drug Active Univers ALLERGIE Class ity of S [facility] Social History Social Habit Start Date Stop Date Quantity Comments Source History of Cigarette Smoker Universi ty of tobacco use [facility] Alcohol intake 2021-03-20 2021-03-20 0 /d University of 00:00:00 00:00:00 [facility] Tobacco use and 2015-12-23 2015-12-23 Never used Universit y of exposure 00:00:00 00:00:00 [facility] Sex [birth year] At [birth year] Universit y of 00:00:00 00:00:00 [facility] Smoking Status Start Date Stop Date Source Former Smoker [facility] Medications Ordered Filled Start Stop Current Ordering Indication Dosage Frequency Signature Comments Components Source Medication Medication Date Date Medication? Clinician (SIG) Name Name triamcinolo 2020-05- No [id number] 40mg Univers ne 0-25 10-25 ity of acetonide 22:45: 21:44 [place] (KENALOG) 00 :00 Medical injection Branch 40 mg triamcinolo 2020-05- No [id number] 40mg 40 mg, Univers ne 0-25 10-25 Intramuscu ity of acetonide 22:45: 21:44 [place], ONCE, [place] (KENALOG) 00 :00 1 dose, On Medi liborio injection Mon Branch 40 mg 03/20/21 at 1745, Routine Glimepiride Glimepiride 2020-0 Yes Alicia [address] 9-09 Mill[place] with Lukes - 00:00: breakfast Memoria 00 or the l first main Outpati meal of ent the day Clinics GABAPENTIN 2020-0 Yes [id number] TAKE 1 Univers 300 mg 8-04 CAPSULE BY ity of capsule 00:00: MOUTH 3 [place] 00 TIMES A Medical DAY Branch Januvia Januvia 2020-0 Yes Alicia [address] 5-26 [place] [facility] - 00:00: Memoria 00 l Outpati ent Clinics Diclofenac 2020-0 Yes [id number] Apply to Univers Sodium 3-19 area(s) 4 ity of (VOLTAREN) 00:00: (four) [place] 1 % gel 00 times Medical daily. Branch metFORMIN 2020-0 Yes 1000mg Take 1,000 Univers (GLUCOPHAGE 2-07 mg by ity of ) 1,000 mg 09:42: mouth 2 [place] tablet 43 (two) Medical times Branch daily with meals. GLIMEPIRIDE 2020-0 Yes 2mg Take 2 mg U nivers ORAL 2-07 by mouth ity of 09:42: daily. [place] 43 Medical Branch insulin 2020-0 Yes 15U inject 15 Unive rs glargine 2-07 Units ity of (LANTUS 09:42: under the [place] U-100) 100 43 skin at Medica l unit/mL bedtime. Branch injection dapaglifloz 2020-0 Yes Farxiga 5 U nivers in 2-07 mg tablet ity of (FARXIGA) 5 09:42: Take 1 [place] mg tablet 43 tablet Medical every day Branch by oral route. hydrOXYzine 2020-0 Yes [id number] 25mg Take 1 Univers 25 mg 1-31 tablet by ity of tablet 00:00: mouth [place] 00 every 6 Medical (six) Branch hours as needed for Itching. gabapentin 2020-0 Yes [id number] 600mg Take 1 Univers 600 mg 1-31 tablet by ity of tablet 00:00: mouth 3 [place] 00 (three) Medical times Branch daily. methylPREDN 2020-0 Yes [id number] 84mg Take 21 Univers ISolone 1-16 tablets by ity of (MEDROL, 00:00: mouth [place] PURNIMA,) 4 mg 00 SEE-INSTRU Med ical tablets CTIONS. Branch follow package directions lisinopril 2018-05 Yes 10mg Take 10 mg U nivers 10 mg 2-24 by mouth ity of tablet 00:00: daily. [place] [facility] citalopram 2018-05 Yes 10mg Take 10 mg U nivers 10 mg 2-24 by mouth ity of tablet 00:00: daily. [place] [facility] naproxen Yes TAKE 1 Univers 500 mg 7-11 TABLET ity of tablet 00:00: WITH FOOD OR MILK Medical NEEDED Branch TWICE A DAY ORALLY 30 DAYS LORazepam Yes TAKE 1 Univer s 0.5 mg 7-10 TABLET BY ity of tablet 00:00: MOUTH [place] 00 EVERY 12 Medical HOURS Branch NEEDED FOR ANXIETY terbinafine Yes 250mg Take 250 U nivers HCl 250 mg 6-13 mg by ity of tablet 00:00: mouth [place] 00 daily. Medical Branch acetaminoph acetaminoph No acetaminop [place] en 300 [...] e gauge x gauge x gauge x 05/30" 05/30" 05/30" celecoxib celecoxib No celecoxib [place] 200 mg 200 mg 200 mg Family capsule capsule capsule Practi c TAKE 1 TAKE 1 TAKE 1 e CAPSULE BY CAPSULE BY CAPSULE BY MOUTH EVERY MOUTH EVERY MOUTH DAY DAY EVERY DAY chlorthalid chlorthalid No chlorthali [place] one 25 mg one 25 mg done 25 mg Family tablet TAKE tablet TAKE tablet Practic 1 TABLET BY 1 TABLET BY TAKE 1 e MOUTH EVERY MOUTH EVERY TABLET BY DAY DAY MOUTH EVERY DAY citalopram citalopram No 1 Q1D citalopram [facility] 10 mg 10 mg 10 mg Family tablet Take tablet Take tablet Practic 1 tablet 1 tablet Take 1 e every day every day tablet by oral by oral every day route. route. by oral route. dexamethaso dexamethaso No dexamethas [facility] ne 6 mg ne 6 mg one 6 mg Famil y tablet tablet tablet Practic e diclofenac diclofenac No diclofenac [facility] 1 % topical 1 % topical 1 % F amily gel APPLY gel APPLY topical Pr actic TO AFFECTED TO AFFECTED gel APPLY e AREA TWICE AREA TWICE TO A DAY A DAY AFFECTED AREA TWICE A DAY diclofenac diclofenac No diclofenac [facility] sodium 75 sodium 75 sodium 75 Family mg mg mg Practic tablet,janeen tablet,janeen tablet,del e yed release yed release ayed release gabapentin gabapentin No 1capsul BID gabapentin [facility] 300 mg 300 mg e(s) 300 mg Family capsule capsule capsule Practi c Take 1 Take 1 Take 1 e capsule capsule capsule twice a day twice a day twice a by oral by oral day by route. route. oral route. gabapentin gabapentin No gabapentin [facility] 800 mg 800 mg 800 mg Family tablet TAKE tablet TAKE tablet Practic 1 TABLET BY 1 TABLET BY TAKE 1 e MOUTH THREE MOUTH THREE TABLET BY TIMES A DAY TIMES A DAY MOUTH THREE TIMES A DAY glimepiride glimepiride No glimepirid [facility] 2 mg tablet 2 mg tablet e [...] by directed. directed. oral route as directed. Celexa Celexa Yes Alicia 1 tablet [facility] ent Clinics lancing lancing No lancing Villag e device USE device USE device USE Family WITH WITH WITH Practic LANCETS TO LANCETS TO LANCETS TO e TEST BLOOD TEST BLOOD TEST BLOOD GLUCOSE GLUCOSE GLUCOSE levofloxaci levofloxaci No levofloxac [facility] n 500 mg n 500 mg in 500 mg Fa angel tablet tablet tablet Practic e lisinopril lisinopril No lisinopril [facility] 10 mg 10 mg 10 mg Family tablet tablet tablet Practic e lisinopril lisinopril No lisinopril [facility] 20 mg 20 mg 20 mg Family tablet Take tablet Take tablet Practic 1 tablet 1 tablet Take 1 e every day every day tablet by oral by oral every day route. route. by oral route. meloxicam meloxicam No meloxicam [facility] 7.5 mg 7.5 mg 7.5 mg Family tablet Take tablet Take tablet Practic 1 tablet 1 tablet Take 1 e every day every day tablet by oral by oral every day route. route. by oral route. Acetaminoph Acetaminoph Yes Alicia [address] [facility] en-Codeine en-Codeine [facility] [facility] metformin metformin No metformin [facility] 1,000 mg 1,000 mg 1,000 mg Fam mara tablet Take tablet Take tablet Practic 1 tablet 1 tablet Take 1 e twice a day twice a day tablet by oral by oral twice a route. route. day by oral route. metformin metformin No metformin [facility] 500 mg 500 mg 500 mg Family tablet tablet tablet Practic e methylpredn methylpredn No methylpred [facility] isolone 4 isolone 4 nisolone 4 Family mg tablets mg tablets mg tablets Practic in a dose in a dose in a dose e pack pack pack ondansetron ondansetron No ondansetro [facility] HCl 4 mg HCl 4 mg n HCl 4 mg F amily tablet tablet tablet Practic e OneTouch OneTouch No OneTouch Glenn charo Verio test Verio test Verio test Family strips Use strips Use strips Use Practic to test to test to test e blood blood blood glucose glucose glucose once a day once a day once a day Lisinopril Lisinopril Yes Alicia [address] [facility] [address] Millender [facility] pregabalin pregabalin No pregabalin [facility] 75 mg 75 mg 75 mg Family capsule capsule capsule Practi c e Ultra Thin Ultra Thin No Ultra Thin [facility] Lancets 31 Lancets 31 Lancets 31 Family gauge Use gauge Use gauge Use Practic to test to test to test e blood blood blood glucose glucose glucose once a day once a day once a day Melatonin Melatonin Yes Alicia [address] [facility] Millender at bedtime Fransico muse - as needed Memoria with food l [facility] Clinics Gabapentin Gabapentin Yes Alicia [address] [facility] Mill[facility] Clinics Farxiga 5 Farxiga 5 [...] nasal mcg/actuat spray,suspe spray,suspe ion nasal nsion [place] nsion [place] spray,susp 1 spray 1 spray ension twice a day twice a day [place] 1 by by spray intranasal intranasal twice a route for route for day by 30 days. 30 days. intranasal route for 30 days. Diclofenac Diclofenac Yes Alicia TAKE [address] [facility] [facility] Sodium Sodium Millender TABLET BY L ukes - MOUTH Memoria TWICE A l DAY WITH [facility] MEALS ent Clinics metformin metformin No 1 BID metformin [place] 1,000 mg 1,000 mg 1,000 mg da tablet Take tablet Take tablet Medical 1 tablet 1 tablet Take 1 Group twice a day twice a day tablet by oral by oral twice a route. route. day by oral route. Metformin Metformin Yes Alicia [address] HCl HCl [place] with meals Luke s - Memoria l [facility] Clinics Vital Signs Vital Name Observation Time Observation Value Comments Source Systolic blood 2021-03-20 19:58:00 111 [facility]Hg[facility] Di[facility] blood 2021-03-20 19:58:00 67 mm[Hg] [facility] [place] Heart rate 2021-03-20 19:58:00 97 /min [facility] Body height 2021-03-20 19:58:00 163.8 cm [facility] Body weight 2021-03-20 19:58:00 70.308 kg [facility] BMI 2021-03-20 19:58:00 26.19 kg/m2 [facility] Height 2020-02-12 00:00:00 63 [in_i] [facility] Height 2019-12-11 00:00:00 63 [in_i] [facility] Practice BMI (Body Mass 2019-12-11 00:00:00 28.9 kg/m2 [facility] jackeline Family Index) Practice Body Weight 2019-12-11 00:00:00 163 [lb_av] [facility] BP Diastolic 2018-11-14 00:00:00 83 mm[Hg] [facility] Height 2018-11-14 00:00:00 64 [in_i] [facility] BMI (Body Mass 2018-11-14 00:00:00 25.5 kg/m2 [facility] Medical Index) Group BP Systolic 2018-11-14 00:00:00 149 mm[Hg] [facility] Body Weight 2018-11-14 00:00:00 148.4 [lb_av] [facility] Procedures Procedure Date / Time Performed Performing Clinician Sour e TYMPANOMETRY 2018-11-14 00:00:00 [facility] Plan of Care Planned Activity Planned Date Details Comments Source Instructions [facility] Encounters Start End Encounter Admission Attending Care Care Encounter Source Date/Time Date/Time Type Type Clinicians Facility Department ID 2021-03-22 2021-03-22 Outpatient Diane CRANE [facility] [id number] Univers 13:45:00 13:45:00 PAYTON [id number] [facility] 2021-03-22 2021-03-22 [facility] [id number] Univers 13:45:00 13:45:00 PAYTON [facility] 2021-03-20 2021-03-20 [facility] [id number] Univers 14:51:53 16:00:20 Visit [facility] [id number] it y [facility] [id number] Sameer as Cuauhtemoc?Blea [id number] [place] camron [address] Medical Office [facility] 2021-03-20 2021-03-20 Outpatient [facility] [id number] Univers 14:45:00 14:45:00 ROHAN [id number] [facility] 2021-03-20 2021-03-20 Outpatient Diane PATE [facility] [id number] Univers 14:45:00 14:45:00 ROHAN [facility] 2020-12-27 2020-12-27 Outpatient CURRY_S DMG DMG [id number] [facility] 01:40:00 01:40:00 [id number] Medica l Group 2020-07-01 2020-07-01 Outpatient Fozia-Mbayo VFP VFP [id number] [facility] 05:22:00 05:22:00 _A_AH [id number] Family Practic e 2020-07-01 2020-07-01 Outpatient Fozia-Mbayo VFP VFP [id number] [place] 05:22:00 05:22:00 _A_AH [id number] Family Practic e 2020-06-23 2020-06-23 Outpatient Fozia-Mbayo VFP VFP [id number] [place] 02:12:00 02:12:00 _A_AH [id number] Family Practic e 2020-06-22 2020-06-22 Outpatient Fozia-Mbayo VFP VFP [id number] [place] 10:49:00 10:49:00 _A_AH [id number] Family Practic e 2020-06-21 2020-06-21 Prerna VFP [place] - [id number] V illage 00:00:00 00:00:00 Fozia-Mbay [facility] Fam mara jennings, PLATFORM OPERATIONS DIRECTOR: Medical - Practi c [address] [email or web address] [facility], [place] [address], [place] [address] , Ph. 2020-04-13 2020-04-13 Outpatient Raju_P MMG MMG [id number] [place] 02:32:00 02:32:00 [id number] [facility] 2020-03-01 2020-03-01 Outpatient Fozia-Mbayo VFP VFP [id number] [facility] 04:05:00 04:05:00 _A_AH [id number] Family Practic e 2020-02-29 2020-02-29 Outpatient Fozia-Mbayo VFP VFP [id number] [facility] 01:50:00 01:50:00 _A_AH [id number] Family Practic e 2020-02-22 2020-02-22 Outpatient Fozia-Mbayo VFP VF [address] [place] [address] 08:48:00 08:48:00 _A_AH [id number] Family Practic e 2020-02-12 2020-02-12 Prerna VFP [place] - [id number] V illage 00:00:00 00:00:00 Fozia-Mbay [facility] Venu jennings PLATFORM OPERATIONS DIRECTOR: Medical - Practi c [address] [email or web address] [facility], [address] [place] [address], [place] [address] , Ph. 2020-02-03 2020-02-03 [facility] [id number] 11:00:00 11:00:00 [facility] Family Medicine Medicine Outpati ent Clinics 2020-01-11 2020-01-11 Outpatient Fozia-Mbayo VFP P [address] [place] [address] 06:55:00 06:55:00 _A_AH [id number] Family Practic e 2020-01-06 2020-01-06 Outpatient Fozia-Mbayo VFP VFP [id number] [facility] 07:22:00 07:22:00 _A_AH [id number] Family Practic e 2020-01-06 2020-01-06 Outpatient Fozia-Mbayo VFP VFP [address] [place] [address] 07:22:00 07:22:00 _A_AH [id number] Family Practic e 2019-12-30 2019-12-30 Outpatient Fozia-Mbayo VFP VFP [address] [place] [address] 07:14:00 07:14:00 _A_AH [id number] Family Practic e 2019-12-28 2019-12-28 RORY Knapp [id number] 00:00:00 00:00:00 [facility] [id number] Surgical [id number] Specialti [id number] es [address] [place] 2019-12-28 2019-12-28 RORY Knapp [id number] 00:00:00 00:00:00 [facility] [id number] Surgical [id number] Specialti [id number] es [address] 2019-12-25 2019-12-25 Outpatient Fozia-Ysabel VFP VFP [id number] [facility] 01:52:00 01:52:00 _A_AH [id number] Family Practic e 2019-12-23 2019-12-[address] [facility] [id number] 10:54:00 10:54:00 [facility] l Group Outpati ent Clinics 2019-12-17 2019-12-17 Outpatient Fozia-Emo VFP VFP [id number] [facility] 10:07:00 10:07:00 _A_AH [id number] Family Practic e 2019-12-11 2019-12-11 Prerna VFP [place] - [id number] V illage 00:00:00 00:00:00 FoziaEsme [facility] Fam mara jennings PLATFORM OPERATIONS DIRECTOR: Medical - Practi c [address] [email or web address] [facility], [address] [address], [place] [address] , Ph. 2019-12-10 2019-12-[address] [facility] [id number] 15:07:12 15:45:01 Visit [facility] [id number] Surgical [id number] Specialti [id number] es [address] 2019-12-10 2019-12-10 Outpatient Diane CRANE [facility] [id number] Univers 15:00:00 15:00:00 PAYTON [id number] [facility] 2019-12-10 2019-12-10 Outpatient Diane CRANE [facility] [id number] Univers 15:00:00 15:00:00 PAYTON [facility] 2019-12-03 2019-12-03 Outpatient Dieter Arguello [id number] 14:42:00 14:42:00 [facility] l Medicine Outpati ent Clinics 2019-10-27 2019-10-27 Outpatient Dieter Garciast [id number] 16:30:00 16:30:00 [facility] ent Clinics 2019-10-20 2019-10-20 Outpatient Dieter Dieetrt [id number] 22:55:00 22:55:00 [facility] ent Clinics 2019-10-20 2019-10-20 Outpatient Atilioandrea Dietert [id number] 09:40:00 09:40:00 [facility] ent Clinics 2019-09-22 2019-09-22 Outpatient Diane PATE [facility] [id number] Univers 10:00:00 10:00:00 ROHAN [id number] [facility] 2019-09-22 2019-09-22 Outpatient Diane [facility]ATE [facility] [id number] Univers 10:00:00 10:00:00 ROHAN [facility] 2019-08-17 2019-08-17 Outpatient Diane [facility] [id number] Univers 13:45:00 13:45:00 ROHAN [facility] 2019-08-17 2019-08-17 Outpatient Diane [facility] [id number] Univers 13:45:00 13:45:00 ROHAN [id number] [facility] 2019-07-23 2019-07-23 Outpatient Fozia-Mbayo VFP VFP [address] [place] [address] 01:59:00 01:59:00 _A_AH [id number] Family Practic e 2019-07-23 2019-07-23 Outpatient Fozia-Mbayo VFP VFP [address] [place] [address] 01:59:00 01:59:00 _A_AH [id number] Family Practic e 2019-07-23 2019-07-23 Outpatient Fozia-Mbayo VFP VFP [id number] 01:59:00 01:59:00 _A_AH [id number] Family Practic e 2019-07-16 2019-07-16 Outpatient Diane PATE [facility] [id number] Univers 08:45:00 08:56:09 ROHAN [facility] 2019-06-26 2019-06-26 Outpatient Diane KAMALJIT ARANGO [facility] [id number] [employer] 11:03:09 23:59:00 [facility] 2019-04-28 2019-04-28 Outpatient Diane [facility] [id number] [employer] 11:51:08 23:59:00 ANNITA [facility] 2018-11-14 2018-11-14 Declan [facility] [place] - [id number] [facility] 00:00:00 00:00:00 MD Tonya: [address] [employer] [facility] - [address], Otolaryngol [place], [facility] [address] , Ph. Results Test Description Test Time Test Comments Results Result Comments Source tympanogram 2018-11-14 10:54:48 Test Item Value Reference Range Interpretation Comme nts Right (test code = Right) Type C Peak is on Left Left (test code = Left) Type B Curve [facility]
--- NOTE | 2021-05-22 17:09 | RAD REPORT ---
EXAM DESCRIPTION: RAD - Chest Single View - 05/22/2021 4:59 pm CLINICAL HISTORY: right side weakness Chest pain. COMPARISON: Chest Single View dated 01/04/2020; Chest Single View dated 12/24/2019; Chest Single View dated 12/03/2017; Chest Pa And Lat (2 Views) dated 03/26/2017 FINDINGS: Portable technique limits examination quality. The lungs are grossly clear. The heart is normal in size. No displaced fractures. IMPRESSION: No acute intrathoracic process suspected.
[2021-05-22 17:24] LABS: Absolute Lymphocytes (CBC) 2.9 K/uL (0.7-4.9); Hematocrit 34.9 % (36.0-45.0); Lymphocytes % 34.9 % (15.3-44.8); RBC Red Blood Cell Count 4.04 M/uL (3.86-4.86)
[2021-05-22 17:26] LABS: Protime INR 0.97
[2021-05-22 17:44] LABS: ALT/SGPT 19 U/L (12-78); AST/SGOT 10 U/L (15-37); Albumin 3.6 g/dL (3.4-5.0); Alkaline Phosphatase 68 U/L (45-117); BUN Blood Urea Nitrogen 20 mg/dL (7-18); Bicarbonate 27 mmol/L (21-32); Bilirubin Direct < 0.1 mg/dL (0-0.2); Bilirubin Total 0.3 mg/dL (0.2-1.0); Glucose Level 103 mg/dL (74-106); Magnesium 1.8 mg/dL (1.8-2.4); NT PRO-BNP 164 pg/mL (<125); Potassium 4.1 mmol/L (3.5-5.1); Protein, Total 7.2 g/dL (6.4-8.2); Sodium Level 141 mmol/L (136-145); Troponin (Emerg Dept Use Only) < 0.02 ng/mL (0.0-0.045)
--- NOTE | 2021-05-22 17:45 | RAD REPORT ---
EXAM DESCRIPTION: CT - Head Brain Wo Cont - 05/22/2021 5:13 pm CLINICAL HISTORY: right side weakness and numbness Headache, hypertension, drowsiness COMPARISON: Head Brain Wo Cont dated 03/26/2017 TECHNIQUE: All CT scans are performed using dose optimization technique as appropriate and may inclu de automated exposure control or mA/KV adjustment according to patient size. FINDINGS: No intracranial hemorrhage, hydrocephalus or extra-axial fluid collection.Mild generalized brain atrophy is present with mild periventricular and deep white matter chronic microvascular ische ed changes.No areas of brain edema or evidence of midline shift. The paranasal sinuses and mastoids are clear. The calvarium is intact. IMPRESSION: No acute intracranial abnormality.
--- NOTE | 2021-05-22 18:29 | EDPHYS ---
Physician Documentation [facility] Name: Yadira Land Age: 71 yrs Sex: Female : 1950 Arrival Date: 05/22/2021 Time: 15:47 Bed 27 Private MD: ED Physician Jorge Craven HPI: 05/22 16:30 This 71 yrs old Female presents to ER via Ambulatory with complaints of cp Numbness. 16:30 The patient's problem is reported as paresthesias, in right upper extremity, in right cp lower extremity, in right side of face, weakness, in the right upper extremity, in the right lower extremity. Onset: The symptoms/episode began/occurred yesterday, approximately 1000 upon awakening. 16:30 Duration: The episode is continuous. Associated signs and symptoms: Pertinent cp negatives: abdominal pain, blurred vision, chest pain, diaphoresis, headache, palpitations, shortness of breath. Severity of symptoms: in the emergency department the symptoms are unchanged despite home interventions. Patient's baseline: Neuro: alert and fully oriented, Motor: no deficits, Ambulation: walks without assistance, Speech: normal. Historical: - Allergies: 16:28 No Known Allergies; ap3 - PMHx: 16:28 Diabetes - NIDDM; Hypertension; ap3 - Immunization history:: Client reports receiving the 2nd dose of the Covid vaccine. - Social history:: Smoking status: Patient denies any tobacco usage or history of. ROS: 16:35 Constitutional: Negative for body aches, chills, fever, poor PO intake. cp 16:35 Eyes: Negative for injury, pain, redness, and discharge. cp 16:35 ENT: Negative for ear pain, sore throat, difficulty swallowing, difficulty handling secretions. 16:35 Neck: Negative for pain with movement, pain at rest, stiffness. 16:35 Cardiovascular: Negative for chest pain, palpitations. 16:35 Respiratory: Negative for cough, shortness of breath, wheezing. 16:35 Abdomen/GI: Negative for abdominal pain, nausea, vomiting, and diarrhea. 16:35 Neuro: Positive for numbness, weakness, of the right side of face and right arm and right leg, Negative for altered mental status, dizziness, speech changes. 16:35 All other systems are negative. Exam: 16:40 Constitutional: The patient appears in no acute distress, alert, awake, cp non-diaphoretic, non-toxic, well developed, well nourished. 16:40 Head/Face: Normocephalic, atraumatic. cp 16:40 Eyes: Periorbital structures: appear normal, Pupils: equal, round, and reactive to light and accomodation, Extraocular movements: intact throughout, Conjunctiva: normal, no exudate, no injection, Lids and lashes: appear normal, bilaterally. 16:40 ENT: External ear(s): are unremarkable, Nose: is normal, Mouth: Lips: moist, Oral mucosa: moist, Posterior pharynx: Airway: no evidence of obstruction, patent. 16:40 Chest/axilla: Inspection: normal. 16:40 Cardiovascular: Rate: normal, Rhythm: regular, Edema: is not appreciated, JVD: is not appreciated. 16:40 Respiratory: the patient does not display signs of respiratory distress, Respirations: normal, no use of accessory muscles, no retractions, labored breathing, is not present, Breath sounds: are clear throughout, no decreased breath sounds, no stridor, no wheezing. 16:40 Abdomen/GI: Inspection: abdomen appears normal, Palpation: abdomen is soft and non-tender, in all quadrants. 16:40 Back: pain, is absent, ROM is normal. 16:40 Neuro: Orientation: to person, place \\T\\ time. Mentation: is normal, Cerebellar function: Romberg testing is negative, Motor: moves all fours, Sensation: numbness, that is mild, of the right side of face and right arm and right leg. 17:55 Radiologist reports: no acute findings cp Vital Signs: 16:26 BP 183 / 113; Pulse 93; Pulse Ox 98% on R/A; Weight 68.04 kg; Height 5 ft. 4 in. ap3 (162.56 cm); 17:20 BP 169 / 79; Pulse 89; Resp 16; Pulse Ox 100% on R/A; ae4 17:30 BP 178 / 86; Pulse 87; Resp 18; Temp 98.3(O); Pulse Ox 100% on R/A; ae4 18:00 BP 194 / 92; Pulse 98; Resp 17; Pulse Ox 100% on R/A; jg9 19:00 BP 191 / 81; Pulse 91; Resp 16; Pulse Ox 100% on R/A; ae4 19:28 BP 188 / 78; Pulse 91; Resp 16; Pulse Ox 99% on R/A; ae4 19:34 BP 163 / 82; Pulse 95; Resp 17; Pulse Ox 99% on R/A; ae4 16:26 Body Mass Index 25.75 (68.04 kg, 162.56 cm) ap3 NIH Stroke Scale Scores: 16:35 NIHSS Score: 2 cp MDM: 16:24 Patient medically screened. kirit 16:29 ED course: patient is not a candidate for tpa as onset of symptoms were noticed yesterday about 1000 upon awakening. 18:00 Data reviewed: vital signs, nurses notes, lab test result(s), EKG, radiologic studies, cp CT scan, plain films. Physician consultation: Cirilo Keith MD was contacted at 18:01, regarding patient's condition, left message on voicemail. 18:45 Physician consultation: Cirilo Keith MD was contacted at 18:45, regarding admission, to the telemetry unit. patient's condition, DR Wilkes consulted and will see patient in inpatient room. 05/22 16:29 Order name: Basic Metabolic Panel; Complete Time: 17:51 05/22 17:51 Interpretation: Normal except: CL 108; BUN 20; CRE 1.40; GFR 37. 05/22 16:29 Order name: CBC with Diff; Complete Time: 17:33 05/22 17:33 Interpretation: Normal except: HGB 11.3; HCT 34.9. 05/22 16:29 Order name: LFT's; Complete Time: 17:51 05/22 16:29 Order name: Magnesium; Complete Time: 17:51 05/22 16:29 Order name: NT PRO-BNP; Complete Time: 17:51 05/22 16:29 Order name: PT-INR; Complete Time: 17:33 05/22 16:29 Order name: Troponin (emerg Dept Use Only); Complete Time: 17:51 05/22 17:52 Interpretation: Reviewed. 05/22 19:24 Order name: CKMB Creatine Kinase MB [facility] 05/22 19:24 Order name: CKMB Creatine Kinase MB [facility] 05/22 19:24 Order name: Creatine Phosphokinase [facility] 05/22 19:24 Order name: Creatine Phosphokinase [facility] 05/22 19:24 Order name: Lipid Profile [facility] 05/22 19:24 Order name: Lipid Profile [facility] 05/22 19:24 Order name: Troponin I [facility] 05/22 16:29 Order name: XRAY Chest (1 view); Complete Time: 17:33 05/22 17:33 Interpretation: Report review. 05/22 16:29 Order name: CT Head Brain wo Cont; Complete Time: 17:51 05/22 19:24 Order name: Echo with Doppler [facility] 05/22 19:24 Order name: Troponin I [facility] 05/22 19:24 Order name: Troponin I [facility] 05/22 19:24 Order name: Stroke Protocol [facility] 05/22 19:25 Order name: Carotid Artery Bilateral [facility] 05/22 20:07 Order name: COVID-19 SARS RT PCR (Document "Date of Onset" if Symptomatic) [facility] 05/22 20:53 Order name: Glucose, Ancillary Testing [facility] 05/23 01:04 Order name: SARS-COV-2 RT PCR [facility] 05/23 08:35 Order name: Glucose, Ancillary Testing [facility] 05/23 08:53 Order name: MRI [facility] 05/23 08:56 Order name: MRI [facility] 05/23 11:32 Order name: Glucose, Ancillary Testing [facility] 05/23 15:38 Order name: Hemoglobin A1c [facility] 05/23 16:08 Order name: Glucose, Ancillary Testing [facility] 05/22 16:29 Order name: EKG; Complete Time: 16:30 05/22 16:29 Order name: Cardiac monitoring; Complete Time: 17:18 05/22 16:29 Order name: EKG - Nurse/Tech; Complete Time: 17:20 05/22 16:29 Order name: IV Saline Lock; Complete Time: 17:18 05/22 16:29 Order name: Labs collected and sent; Complete Time: 17:18 05/22 16:29 Order name: O2 Per Protocol; Complete Time: 17:18 05/22 16:29 Order name: O2 Sat Monitoring; Complete Time: 17:18 05/22 19:24 Order name: CONS Physician Consult [facility] 05/23 09:16 Order name: MRI [facility] 05/23 09:45 Order name: US EDMS Administered Medications: 18:37 Drug: Aspirin Chewable Tablet 324 mg Route: PO; jg9 19:29 Follow up: Response: No adverse reaction ae4 18:37 Drug: foLIC Acid 1 mg Route: IVPB; Site: left antecubital; jg9 19:29 Follow up: IV Status: Completed infusion ae4 19:34 Drug: Labetalol 10 mg Route: IVP; Site: left antecubital; ae4 19:46 Follow up: Response: No adverse reaction; Blood pressure is lowered ae4 Disposition: 05/24 07:22 Co-signature as Attending Physician, Jorge Craven MD I agree with the assessment and kirit plan of care. Disposition Summary: 05/22/21 18:28 Hospitalization Ordered Hospitalization Status: Observation cp Provider: Cirilo Keith cp Condition: Stable cp Problem: new cp Symptoms: have improved cp Bed/Room Type: Standard cp Location: Telemetry/MedSurg (observation)(05/23/21 16:53) ja1 Room Assignment: 229(05/23/21 16:53) [facility] Diagnosis - Paresthesia of skin cp - Weakness cp Forms: - Medication Reconciliation Form cp - SBAR form cp NIH Stroke Scale - NIH Stroke Score Date: 05/22/2021 Time: 16:35 Total Score = 2 1a. Level of Consciousness (LOC) - 0(Alert) 1b. Level of Consciousness (LOC) (Month \\T\\ Age) - 0(Both) 1c. LOC Commands (Open \\T\\ Closes Eyes/Cathode Builder) - 0(Both) 2. Best Gaze (Lateral Gaze Paresis) - 0(Normal) 3. Visual Field Loss - 0(No visual loss) 4. Facial Palsy - 1(Minor Paralysis) 5a. Left Arm: Motor (10-second hold) - 0(No drift) 5b. Right Arm: Motor (10-second hold) - 0(No drift) 6a. Left Leg: Motor (5-second hold - always test supine) - 0(No drift) 6b. Right Leg: Motor (5-second hold - always test supine) - 0(No drift) 7. Limb Ataxia (finger/nose \\T\\ heel/glass - test with eyes open) - 0(Absent) 8. Sensory Loss (pinprick arms/legs/face) - 1(Mild to moderate loss) 9. Best Language: Aphasia (description/naming/reading) - 0(No aphasia) 10. Dysarthria (speech clarity - read or repeat words) - 0(Normal) 11. Extinction and Inattention (visual/tactile/auditory/spatial/personal) - 0(No abnormality) Initials: cp Signatures: Dispatcher [employer] EDJorge Cuevas MD MD cha Page, Corey, Viki Locke cp, RN RN Nicholas Velarde RN RN ja1 Nazia Johnston RN RN ap3 Ronnell Carreno RN RN ae4 Nakita Meeksg9 Corrections: (The following items were deleted from the chart) 05/22 16:30 16:29 This 71 yrs old Female presents to ER via Ambulatory with cp complaints of Numbness. cp 05/23 01:32 05/22 18:28 Telemetry/MedSurg (observation) cp 05/23 01:32 12 18:28 cp 05/23 16:53 01:32 [facility] ER HOLD ja1 16:53 01:32 ERHOLD- ja1
--- NOTE | 2021-05-22 18:29 | ER ---
Nurse's Notes [facility] Name: Yadira Land Age: 71 yrs Sex: Female : 1950 Arrival Date: 05/22/2021 Time: 15:47 Bed 27 Private MD: Diagnosis: Paresthesia of skin;Weakness Presentation: 05/22 16:26 Chief complaint: Patient states: she has numbness and weakness on the right side. ap3 Patient reports the numbness is effecting her right leg, right arm and right side of her face. Onset is 05/21/2021. Coronavirus screen: At this time, the client does not indicate any symptoms associated with coronavirus-19. Ebola Screen: No symptoms or risks identified at this time. Initial Sepsis Screen: Does the patient meet any 2 criteria? No. Patient's initial sepsis screen is negative. Does the patient have a suspected source of infection? No. Patient's initial sepsis screen is negative. Risk Assessment: Do you want to hurt yourself or someone else? Patient reports no desire to harm self or others. Onset of symptoms was May 21, 2021 at 10:00. 16:26 Method Of Arrival: Ambulatory ap3 16:26 Acuity: KARSTEN 2 ap3 Triage Assessment: 16:28 General: Appears in no apparent distress. Behavior is calm, cooperative. Pain: Denies ap3 pain. Neuro: Level of Consciousness is awake, alert, obeys commands, Gait is unsteady, Facial droop on right, Reports numbness in right arm and right leg. Respiratory: Airway is patent Respiratory effort is even, unlabored. Historical: - Allergies: 16:28 No Known Allergies; ap3 - PMHx: 16:28 Diabetes - NIDDM; Hypertension; ap3 - Immunization history:: Client reports receiving the 2nd dose of the Covid vaccine. - Social history:: Smoking status: Patient denies any tobacco usage or history of. Screenin:28 Abuse screen: Denies threats or abuse. Nutritional screening: No deficits noted. ap3 Tuberculosis screening: No symptoms or risk factors identified. 17:22 Fall Risk None identified. No fall in past 12 months (0 pts). No secondary diagnosis (0 ae4 pts). No IV (0 pts). Ambulatory Aid- None/Bed Rest/Nurse Assist (0 pts). Gait- Normal/Bed Rest/Wheelchair (0 pts) Mental Status- Oriented to own ability (0 pts). Vital Signs: 16:26 BP 183 / 113; Pulse 93; Pulse Ox 98% on R/A; Weight 68.04 kg; Height 5 ft. 4 in. ap3 (162.56 cm); 17:20 BP 169 / 79; Pulse 89; Resp 16; Pulse Ox 100% on R/A; ae4 17:30 BP 178 / 86; Pulse 87; Resp 18; Temp 98.3(O); Pulse Ox 100% on R/A; ae4 18:00 BP 194 / 92; Pulse 98; Resp 17; Pulse Ox 100% on R/A; jg9 19:00 BP 191 / 81; Pulse 91; Resp 16; Pulse Ox 100% on R/A; ae4 19:28 BP 188 / 78; Pulse 91; Resp 16; Pulse Ox 99% on R/A; ae4 19:34 BP 163 / 82; Pulse 95; Resp 17; Pulse Ox 99% on R/A; ae4 16:26 Body Mass Index 25.75 (68.04 kg, 162.56 cm) ap3 NIH Stroke Scale Scores: 16:35 NIHSS Score: 2 cp ED Course: 15:47 Patient arrived in ED. ds1 16:17 Arm band placed on Patient placed in an exam room, on a stretcher. ll1 16:22 Jorge Marcus PA is PHCP. cp 16:22 Jorge Craven MD is Attending Physician. cp 16:28 Triage completed. ap3 16:28 Patient has correct armband on for positive identification. Bed in low position. Call ap3 light in reach. Side rails up X2. Adult w/ patient. gambling monitor on. Pulse ox on. NIBP on. Door closed. Noise minimized. 16:50 Ronnell Carreno, RN is Primary Nurse. ae4 16:52 XRAY Chest (1 view) Sent. ae4 16:59 XRAY Chest (1 view) In Process Unspecified. EDMS 17:14 CT Head Brain wo Cont In Process Unspecified. EDMS 18:23 Cirilo Keith MD is Hospitalizing Provider. cp 19:09 Primary Nurse role handed off by Ronnell Carreno, RN mw2 19:41 Ronnell Carreno, RN is Primary Nurse. ae4 05/23 00:15 COVID-19 SARS RT PCR (Document "Date of Onset" if Symptomatic) Sent. lt3 00:15 COVID swab sent to lab. lt3 Administered Medications: 05/22 18:37 Drug: Aspirin Chewable Tablet 324 mg Route: PO; jg9 19:29 Follow up: Response: No adverse reaction ae4 18:37 Drug: foLIC Acid 1 mg Route: IVPB; Site: left antecubital; jg9 19:29 Follow up: IV Status: Completed infusion ae4 19:34 Drug: Labetalol 10 mg Route: IVP; Site: left antecubital; ae4 19:46 Follow up: Response: No adverse reaction; Blood pressure is lowered ae4 Outcome: 18:28 Decision to Hospitalize by Provider. cp 05/23 18:27 Patient left the ED. ja1 NIH Stroke Scale - NIH Stroke Score Date: 05/22/2021 Time: 16:35 Total Score = 2 1a. Level of Consciousness (LOC) - 0(Alert) 1b. Level of Consciousness (LOC) (Month \\T\\ Age) - 0(Both) 1c. LOC Commands (Open \\T\\ Closes Eyes/Fine Grader) - 0(Both) 2. Best Gaze (Lateral Gaze Paresis) - 0(Normal) 3. Visual Field Loss - 0(No visual loss) 4. Facial Palsy - 1(Minor Paralysis) 5a. Left Arm: Motor (10-second hold) - 0(No drift) 5b. Right Arm: Motor (10-second hold) - 0(No drift) 6a. Left Leg: Motor (5-second hold - always test supine) - 0(No drift) 6b. Right Leg: Motor (5-second hold - always test supine) - 0(No drift) 7. Limb Ataxia (finger/nose \\T\\ heel/glass - test with eyes open) - 0(Absent) 8. Sensory Loss (pinprick arms/legs/face) - 1(Mild to moderate loss) 9. Best Language: Aphasia (description/naming/reading) - 0(No aphasia) 10. Dysarthria (speech clarity - read or repeat words) - 0(Normal) 11. Extinction and Inattention (visual/tactile/auditory/spatial/personal) - 0(No abnormality) Initials: cp Signatures: Dispatcher [facility] Aileen ds1 Jorge Marcus PA PA cp Aguilar, Jose, RN RN ja1 Nazia Johnstno RN RN 3 Caden Kohler 2 Ronnell Carreno RN RN ae4 Caren Mullins RN RN ll1 Agnes Gu 3 Nakita Meeks j9
[2021-05-22] MEDS ORDERED: ASPIRIN 81 MG CHEWABLE TABLET ONE (18:30)
[2021-05-22] MEDS ORDERED: FOLIC ACID 5 MG/ML VIAL ONE (18:32)
[2021-05-22] MEDS ORDERED: LABETALOL 20 MG/4ML SYRINGE IV ONE (19:32)
[2021-05-22] MEDS: INSULIN -REGULAR HUMAN 50 UNIT/0.5 ML ML SQ SCH (21:00)
[2021-05-22 21:49] VITALS: O2SAT 98
[2021-05-23 04:42] LABS: CKMB Creatine Kinase MB 1.4 ng/mL (1.0-3.6)
[2021-05-23] MEDS: INSULIN -REGULAR HUMAN 50 UNIT/0.5 ML ML SQ SCH ×4 (07:30→20:11)
[2021-05-23] MEDS ORDERED: ASPIRIN EC 81 MG TAB PO ONE (08:50)
[2021-05-23] MEDS ORDERED: ENOXAPARIN 40 MG/0.4 ML SQ ONE (08:50)
[2021-05-23] MEDS: ASPIRIN EC 81 MG TAB PO SCH (08:52)
--- NOTE | 2021-05-23 08:53 | RAD REPORT ---
EXAM DESCRIPTION: MRI - Brain W/Wo Cont - 05/23/2021 8:09 am CLINICAL HISTORY: RIGHT SIDED WEAKNESS/NUMBNESS Mild headache, drowsiness, CVA symptomology COMPARISON: Head Brain Wo Cont dated 05/22/2021; MRA Head Wo Cont dated 05/23/2021; MRA Neck W/Wo Co nt dated 05/23/2021 TECHNIQUE: Multi-sequence, multiplanar MR imaging of the brain was performed with contrast. FINDINGS: No intracranial hemorrhage, hydrocephalus, or extra-axial fluid collection.Mild periventri cular chronic microvascular ischemic changes. No edema or shift of midline structures. No intracrania l mass. DWI is negative for acute CVA. The midline structures are normally formed. Mastoid air cells and paranasal sinuses are clear. Post-contrast images show no abnormal enhancement to suggest tumor or infection. IMPRESSION: Negative for acute CVA or other acute intracranial process. No pathologic post-contrast enhancement suspected.
--- NOTE | 2021-05-23 08:55 | RAD REPORT ---
EXAM DESCRIPTION: MRI - MRA Head Wo Cont - 05/23/2021 8:09 am CLINICAL HISTORY: right side weakness/numbness CVA COMPARISON: Brain W/Wo Cont dated 05/23/2021 FINDINGS: 3D noncontrast [id number] MR angiography of the [place] of [place] was performed. No aneurysm, flow-limiting stenosis or vascular malformation is seen. Forward flow seen in codominant vertebral arteries. The visualized dural venous sinuses appear patent. IMPRESSION: No significant flow abnormality of the [place] of [place] is identified.
[2021-05-23] MEDS ORDERED: ENOXAPARIN 40 MG/0.4 ML SQ SCH (09:00)
--- NOTE | 2021-05-23 09:15 | RAD REPORT ---
EXAM DESCRIPTION: MRI - MRA Neck W/Wo Cont - 05/23/2021 8:10 am CLINICAL HISTORY: RIGHT SIDED WEAKNESS/NUMBNESS Headache, drowsiness, CVA symptomology. COMPARISON: No comparisons FINDINGS: Contrast enhance 2D [id number] MR angiography of the neck vessels was performed. A left aortic arch is present. Normal great vessel origin pattern is seen. There is significant narrowing seen involving the right carotid bulb with estimated stenosis of 80-90 % based on NASCET criteria. Mild narrowing of the left carotid bulb is seen with stenosis of less than 50%. Antegrade flow is see n in both vertebral arteries. IMPRESSION: There is evidence of right-sided carotid bulb stenosis estimated at 80-90% based on NASC ET criteria.
--- NOTE | 2021-05-23 09:44 | RAD REPORT ---
EXAM DESCRIPTION: - CP - 05/23/2021 12:53 am CLINICAL HISTORY: right side weakness/numbness Headache, drowsiness COMPARISON: No comparisons TECHNIQUE: Real-time sonographic evaluation of both carotid systems was performed. Doppler interroga tion was performed with waveform tracing bilaterally. FINDINGS: Normal high resistance waveforms are noted in both external carotid arteries. The common c arotid arteries and internal carotid arteries show normal low resistance waveforms. A large amount of soft plaque is present involving the right carotid bulb. This results in 80 -90 % s tenosis based on NASCET criteria. The peak systolic velocities are elevated in the right bulb measuri ng up to 180 cm/second. Mild hard plaquing is seen left carotid bulb. No significant velocity elevati on involving the left internal carotid artery. Antegrade flow seen in both vertebral arteries. IMPRESSION: Large soft plaque is present involving the right carotid bulb resulting in stenosis of 8 0-90% based on NASCET criteria.
[2021-05-23] MEDS ORDERED: HYDRALAZINE HCL 20 MG/ML VIAL IV PRN (12:04)
[2021-05-23] MEDS ORDERED: HYDRALAZINE HCL 20 MG/ML VIAL ONE (12:18)
[2021-05-23] MEDS ORDERED: D50W 25 GM/50 ML SYRINGE IV PRN (14:01)
[2021-05-23] MEDS ORDERED: GLUCAGON 1 MG/VIAL IM PRN (14:01)
--- NOTE | 2021-05-23 14:26 | P.HP ---
Certification for Inpatient Patient admitted to: Inpatient With expected LOS: >2 Midnights Patient will require the following post-hospital care: None Practitioner: I am a practitioner with admitting privileges, knowledge of patient current condition, hospital course, and medical plan of care. Services: Services provided to patient in accordance with Admission requirements found in Title 42 Section 412.3 of the Code of Federal Regulations Patient History Date of Service: 05/23/21 Primary Care Provider: Lu Aponte Reason for admission: cva History of Present Illness: Patient is an office patient of Mrs Aponte. She has a history of ckd 3, dm2, htn hyperlipidemia The patient woke up on 05/21 with facial numbness and weakness on the right side of the face. She had the symptoms the next day and came to the ER. Which placed her outside of the window for tpa or revascularizato. She had a negative CT and MRI/MRA of the head and neck. She is recovering some function this morning Allergies No Known Allergies Allergy (Unverified 01/04/20 15:42) Home Medications: Metformin HCl [Metformin ER Osmotic] 500 mg PO DAILY 04/13/13 Hydrocodone 10/APAP 325 [[place] 10/325] 1 tab PO Q6H PRN #20 tab 04/12/15 Docusate [Colace Cap*] 100 mg PO BID 30 Days #60 cap 01/09/20 Insulin Glargine Human [Lantus*] 12 units SQ DAILY WITH BREAKFAST 30 Days #30 ml 01/09/20 Lisinopril [Zestril] 10 mg PO DAILY #30 tablet 01/09/20 Metformin HCl 500 mg PO BID 30 Days #60 tablet 01/09/20 - Past Medical/Surgical History Has patient received pneumonia vaccine in the past: Yes Diabetic: Yes -: NIDDM -: GERD -: HTN -: H-PYLORI -: HYPOXIA -: DYSPNEA(Mar) -: Shanae Kennedy -: Ana Durham -: mass removed- upper left side couple months ago -: GROWTH REMOVED FROM SKIN - Family History Father History Unknown: Yes Notes: ulcers Mother -: Hypertension, Diabetes, Cancer Notes: stomach cancer - Social History Smoking Status: Never smoker Alcohol use: No CD- Drugs: No Caffeine use: Yes Place of Residence: Home Review of Systems 10-point ROS is otherwise unremarkable Neurological: Weakness (right face), Numbness (right face) Physical Examination - Vital Signs Temperature: 97.9 F Blood Pressure: 200/95 Pulse: 88 Respirations: 19 Pulse Ox (%): 99 - Physical Exam General: Alert, In no apparent distress, Oriented x2 (mild confusion forgets the year and president) HEENT: Atraumatic, PERRLA, Mucous membr. moist/pink, EOMI, Sclerae nonicteric Neck: Supple, 2+ carotid pulse no bruit, No LAD, Without JVD or thyroid abnormality Respiratory: Clear to auscultation bilaterally, Normal air movement Cardiovascular: Regular rate/rhythm, Normal S1 S2 Gastrointestinal: Normal bowel sounds, No tenderness Musculoskeletal: No tenderness Integumentary: No rashes Neurological: Normal gait, Normal speech, Normal strength at 5/5 x4 extr, Normal tone, Normal affect Lymphatics: No axilla or inguinal lymphadenopathy - Studies Laboratory Data (last 24 hrs) 05/22/21 17:09: PT 11.2, INR 0.97 05/22/21 17:09: WBC 8.20, Hgb 11.3 L, Hct 34.9 L, Plt Count 211 05/22/21 17:09: Sodium 141, Potassium 4.1, BUN 20 H, Creatinine 1.40 H, Glucose 103, Magnesium 1.8, Total Bilirubin 0.3, AST 10 L, ALT 19, Alkaline Phosphatase 68 Assessment and Plan - Problems (Diagnosis) (1) CVA (cerebral vascular accident) Current Visit: Yes Status: Acute Plan: Patient will be started on asa, plavix, statin and folic acid. Will consult Dr. Wilkes. Have PT evaluate the patient Qualifiers: Laterality of affected vessel: unspecified (2) DM2 (diabetes mellitus, type 2) Current Visit: Yes Status: Acute Plan: restart metformin. Monitor kidney function. Her last a1c was last month. (was 8.6). Will have sliding scale for coverage Qualifiers: Diabetes mellitus jail insulin use: with intermediate school teacher use Diabetes mellitus complication status: with kidney complications Diabetes mellitus complication detail: with chronic kidney disease Chronic kidney disease stage: stage 3 (moderate) Chronic kidney disease stage 3 subtype: stage 3a (GFR 45- 59) Qualified Code(s): E11.22 - Type 2 diabetes mellitus with diabetic chronic kidney disease; N18.31 - Chronic kidney disease, stage 3a; Z79.4 - shelter (current) use of insulin (3) HTN (hypertension) Current Visit: Yes Status: Acute Plan: she is on lisinopril 20mg, and chorthalidone. However will hold these till tomorrow. Will allow for permissive htn upto sbp of 200. Qualifiers: Hypertension type: primary hypertension Qualified Code(s): I10 - Essential (primary) hypertension (4) Hyperlipidemia Current Visit: Yes Status: Acute Plan: will start the patient on a statin drug Qualifiers: Hyperlipidemia type: moderate mixed hyperlipidemia not requiring statin therapy Qualified Code(s): E78.2 - Mixed hyperlipidemia Discharge Plan: Home Plan to discharge in: 48 Hours - Advance Directives Does patient have a Living Will: No Does patient have a Durable POA for Healthcare: No - Code Status/Comfort Care Code Status Assessed: No Code Status: Full Code Physician Review: Patient Assessed, Agree with Above Assessment and Plan Critical Care: No Time Spent Managing Pts Care (In Minutes): 45
[2021-05-23] MEDS ORDERED: GABAPENTIN 400 MG CAP ONE (15:32)
[2021-05-23] MEDS: GABAPENTIN 400 MG CAP PO SCH ×2 (15:34→20:13)
[2021-05-23] MEDS: METFORMIN HCL 850 MG TAB PO SCH (16:25)
[2021-05-23] MEDS ORDERED: INSULIN -REGULAR HUMAN 50 UNIT/0.5 ML ML ONE (16:25)
[2021-05-23] MEDS: ATORVASTATIN 40 MG TAB PO SCH (20:13)
[2021-05-24 06:23] LABS: Absolute Lymphocytes (CBC) 3.2 K/uL (0.7-4.9); Hematocrit 33.7 % (36.0-45.0); Lymphocytes % 35.3 % (15.3-44.8); MPV 9.8 fL (7.6-11.3); RBC Red Blood Cell Count 3.87 M/uL (3.86-4.86)
[2021-05-24 06:50] LABS: Bilirubin Total 0.3 mg/dL (0.2-1.0); Potassium 4.5 mmol/L (3.5-5.1); Protein, Total 6.6 g/dL (6.4-8.2); Thyroid Stimulating Hormone 1.11 uIU/mL (0.360-3.740)
[2021-05-24] MEDS: INSULIN -REGULAR HUMAN 50 UNIT/0.5 ML ML SQ SCH ×4 (07:30→19:21)
--- NOTE | 2021-05-24 07:33 | ECHO ---
HEIGHT: 5 ft 0 in WEIGHT: 150 lb 0 oz DATE OF STUDY: 05/23/[address]: Jorge Marcus [facility] 2-DIMENSIONAL: YES M.MODE: YES DOPPLER: YES COLOR FLOW: YES TDS: NO PORTABLE: NO DEFINITY: NO BUBBLE STUDY: NO DIAGNOSIS: RIGHT SIDE WEAKNESS CARDIAC HISTORY: CATHERIZATION: SURGERY: PROSTHETIC VALVE: PACEMAKER: MEASUREMENTS (cm) DIASTOLIC (NORMALS) SYSTOLIC (NORMALS) IVSd 1.0 (0.6-1.2) LA Diam 3.1 (1.9-4.0) LVEF 55-60% LVIDd 3.5 (3.5-5.7) LVIDs 2.5 (2.0-3.5) %FS 27% LVPWd 1.1 (0.6-1.2) Ao Diam 2.3 (2.0-3.7) 2 DIMENSIONAL ASSESSMENT: RIGHT ATRIUM: NORMAL LEFT ATRIUM: NORMAL RIGHT VENTRICLE: NORMAL LEFT VENTRICLE: NORMAL TRICUSPID VALVE: NORMAL MITRAL VALVE: MITRAL ANNULAR CALCIFICATION PULMONIC VALVE: NORMAL AORTIC VALVE: THICKENED PERICARDIAL EFFUSION: NONE AORTIC ROOT: NORMAL LEFT VENTRICULAR WALL MOTION: NORMAL DOPPLER/COLOR FLOW: SEE BELOW. COMMENTS: NORMAL LEFT VENTRICULAR EJECTION FRACTION 55-60%. NORMAL WALL MOTION. MILD MITRAL ANNULAR CALCIFICATION WITH MILD MITRAL REGURGITATION. AORTIC VALVE IS CALCIFIED MILDLY WITH NO AORTIC STENOSIS. TECHNOLOGIST: Odalis PAREDES
[2021-05-24] MEDS: ENOXAPARIN 30 MG/0.3 ML SQ SCH (09:45)
[2021-05-24] MEDS: FOLIC ACID 1 MG TABLET PO SCH (09:46)
[2021-05-24] MEDS: CLOPIDOGREL 75 MG TABLET PO SCH (09:46)
[2021-05-24] MEDS: METFORMIN HCL 850 MG TAB PO SCH ×2 (09:46→17:58)
[2021-05-24] MEDS: GABAPENTIN 400 MG CAP PO SCH ×3 (09:46→19:38)
[2021-05-24] MEDS: ASPIRIN EC 81 MG TAB PO SCH (09:46)
--- NOTE | 2021-05-24 10:08 | P.PN ---
Subjective Date of Service: 05/24/21 Primary Care Provider: Lu Aponte Chief Complaint: cva Subjective: Improving Review of Systems Neurological: Numbness (right face) Physical Examination - Vital Signs Temperature: 97.4 F Blood Pressure: 118/71 Pulse: 95 Respirations: 16 Pulse Ox (%): 93 - Physical Exam General: Alert, In no apparent distress HEENT: Atraumatic, PERRLA, EOMI Neck: Supple, JVD not distended Respiratory: Clear to auscultation bilaterally, Normal air movement Cardiovascular: Regular rate/rhythm, Normal S1 S2 Gastrointestinal: Normal bowel sounds, No tenderness Musculoskeletal: No tenderness Integumentary: No rashes Neurological: Normal speech, Normal tone, Normal affect, Other (mild drooping of the right angle of the jaw) Lymphatics: No axilla or inguinal lymphadenopathy Assessment & Plan - Problems (Diagnosis) (1) CVA (cerebral vascular accident) Current Visit: Yes Status: Acute Plan: Patient will be started on asa, plavix, statin and folic acid. Will consult Dr. Wilkes. Have PT evaluate the patient 05/[address] Ramírez regarding stenosis Qualifiers: CVA mechanism: stenosis Precerebral and cerebral artery: carotid artery Laterality of affected vessel: unspecified Qualified Code(s): I63.239 - Cerebral infarction due to unspecified occlusion or stenosis of unspecified carotid artery (2) DM2 (diabetes mellitus, type 2) Current Visit: Yes Status: Acute Plan: restart metformin. Monitor kidney function. Her last a1c was last month. (was 8.6). Will have sliding scale for coverage Qualifiers: Diabetes mellitus snf insulin use: with snf use Diabetes madison litus complication status: with kidney complications Diabetes mellitus complication detail: with chronic kidney disease Chronic kidney disease stage: stage 3 (moderate) Chronic kidney disease stage 3 subtype: stage 3a (GFR 45- 59) Qualified Code(s): E11.22 - Type 2 diabetes mellitus with diabetic chronic kidney disease; N18.31 - Chronic kidney disease, stage 3a; Z79.4 - jail (current) use of insulin (3) HTN (hypertension) Current Visit: Yes Status: Acute Plan: she is on lisinopril 20mg, and chorthalidone. However will hold these till tomorrow. Will allow for permissive htn upto sbp of 200. Qualifiers: Hypertension type: primary hypertension Qualified Code(s): I10 - Essential (primary) hypertension (4) Hyperlipidemia Current Visit: Yes Status: Acute Plan: will start the patient on a statin drug Qualifiers: Hyperlipidemia type: moderate mixed hyperlipidemia not requiring statin therapy Qualified Code(s): E78.2 - Mixed hyperlipidemia Discharge Plan: Home Plan to discharge in: 24 Hours - Code Status/Comfort Care Code Status Assessed: No Physician Review: Patient Assessed, Agree with Above Assessment and Plan Critical Care: No Time Spent Managing Pts Care (In Minutes): 20
--- NOTE | 2021-05-24 19:14 | RAD REPORT ---
EXAM DESCRIPTION: MRI - C Spine W/Wo Cont- 05/24/2021 7:02 pm CLINICAL HISTORY: weakness Headache, neck pain, radiculopathy COMPARISON: No comparisons FINDINGS: Cervical vertebral bodies are normal in height and alignment. No suspicious marrow edema or marrow replacing process. No fracture or traumatic subluxation. The craniocervical junction is normal. C2-3 level: 3 mm central disc herniation. No significant canal or foraminal stenosis. C3-4 level: 4 mm central disc herniation is present attenuating the anterior subarachnoid space and c ontacting the anterior cord. Mild uncovertebral spurring narrows both exit foramina. C4-5 level: Small posterior osteophyte/ disc complex is present attenuating the anterior subarachnoid space. Uncovertebral spurring bilaterally mildly narrows both exit foramina. C5-6 level: Moderate posterior osteophyte/ disc complex is present attenuating the anterior subarachn oid space and contacting the anterior cord. Bilateral uncovertebral spurring is present, greater on t he right resulting in right exit foraminal narrowing. Subtle cord edema is present at this level. C6-7 level: Small posterior disc bulge is present in the anterior subarachnoid space. Bilateral uncov ertebral spurring is present. No significant canal or foraminal stenosis. C7-T1 level: No significant findings. No pathologic post-contrast enhancement seen. A few mildly prominent lymph nodes are present along bharti th jugular chains. IMPRESSION: Midcervical degenerative changes are present, most notable at C5-6 as detailed. Mild cor d edema is present at the C5-6 level.
[2021-05-24 19:19] VITALS: BMI 29.1
[2021-05-24] MEDS: ATORVASTATIN 40 MG TAB PO SCH (19:38)
[2021-05-25 06:29] LABS: Absolute Lymphocytes (CBC) 2.6 K/uL (0.7-4.9); Hematocrit 32.7 % (36.0-45.0); Lymphocytes % 30.5 % (15.3-44.8); MPV 9.8 fL (7.6-11.3); RBC Red Blood Cell Count 3.77 M/uL (3.86-4.86)
[2021-05-25 06:50] LABS: Bilirubin Total 0.3 mg/dL (0.2-1.0); Potassium 4.4 mmol/L (3.5-5.1); Protein, Total 6.5 g/dL (6.4-8.2)
[2021-05-25] MEDS ORDERED: HEPA 1000U/500MLS 0 UNIT/0 ML BAG IV ONE (10:57)
--- NOTE | 2021-05-25 12:51 | P.DS ---
Admission Date: 05/24/21 Discharge Date: 05/25/21 Primary Care Provider: Lu Aponte Disposition: ROUTINE DISCHARGE Discharge Condition: GOOD Reason for Admission: cva - Problems (1) CVA (cerebral vascular accident) Current Visit: Yes Status: Acute Qualifiers: CVA mechanism: stenosis Precerebral and cerebral artery: carotid artery Laterality of affected vessel: unspecified Qualified Code(s): I63.239 - Cerebral infarction due to unspecified occlusion or stenosis of unspecified carotid artery (2) DM2 (diabetes mellitus, type 2) Current Visit: Yes Status: Acute Qualifiers: Diabetes mellitus senior care insulin use: with senior care use Diabetes mellitus complication status: with kidney complications Diabetes mellitus complication detail: with chronic kidney disease Chronic kidney disease stage: stage 3 (moderate) Chronic kidney disease stage 3 subtype: stage 3a (GFR 45- 59) Qualified Code(s): E11.22 - Type 2 diabetes mellitus with diabetic chronic kidney disease; N18.31 - Chronic kidney disease, stage 3a; 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 She has a history of ckd 3, dm2, htn hyperlipidemia The patient woke up on 05/21 with facial numbness and weakness on the right side of the face. She had the symptoms the next day and came to the ER. Which placed her outside of the window for tpa or revascularizato. She had a negative CT and MRI/MRA of the head and neck. She is recovering some function this morning Hospital Course: Patient was admitted. Ct and mri/mra showed no stoke. However there was an occlusion in the right carotid. Consult to Dr. Ramírez. Who was not able to get her in for an angiogram today. the patient will have her up with Dr. Ramírez on Saturday05/29/21. Send her home on asa, plavix, atorvastatin and folic acid Vital Signs/Physical Exam: Temp Pulse Resp BP Pulse Ox 97.6 F 99 H 18 150/72 H 98 12/30/21 08:00 05/25/21 08:00 05/25/21 08:00 05/25/21 08:00 05/25/21 08:00 General: Alert, In no apparent distress HEENT: Atraumatic, PERRLA, EOMI Neck: Supple, JVD not distended Respiratory: Clear to auscultation bilaterally, Normal air movement Cardiovascular: Regular rate/rhythm, Normal S1 S2 Gastrointestinal: Normal bowel sounds, No tenderness Musculoskeletal: No tenderness Integumentary: No rashes Neurological: Normal speech, Normal tone, Normal affect Lymphatics: No axilla or inguinal lymphadenopathy Laboratory Data at Discharge: WBC 8.70 K/uL (4.3-10.9) 05/25/21 06:14 Hgb 10.8 g/dL (12.0-15.0) L 05/25/21 06:14 Hct 32.7 % (36.0-45.0) L 05/25/21 06:14 Plt Count 207 K/uL (152-406) 05/25/21 06:14 PT 11.2 SECONDS (9.5-12.5) 05/22/21 17:09 INR 0.97 05/22/21 17:09 Sodium 140 mmol/L (136-145) 05/25/21 06:14 Potassium 4.4 mmol/L (3.5-5.1) 05/25/21 06:14 BUN 26 mg/dL (7-18) H 05/25/21 06:14 Creatinine 1.28 mg/dL (0.55-1.3) 05/25/21 06:14 Glucose 157 mg/dL (74-106) H 05/25/21 06:14 Magnesium 1.8 mg/dL (1.8-2.4) 05/22/21 17:09 Total Bilirubin 0.3 mg/dL (0.2-1.0) 05/25/21 06:14 AST 10 U/L (15-37) L 05/25/21 06:14 ALT 18 U/L (12-78) 05/25/21 06:14 Alkaline Phosphatase 62 U/L (45-117) 05/25/21 06:14 Troponin I < 0.02 ng/mL (0.0-0.045) 05/23/21 00:51 Triglycerides 158 mg/dL (<150) H 05/23/21 04:10 Cholesterol 142 mg/dL (<200) 05/23/21 04:10 HDL Cholesterol 39 mg/dL (40-60) L 05/23/21 04:10 Cholesterol/HDL Ratio 3.64 05/23/21 04:10 Home Medications: Metformin HCl [Metformin ER Osmotic] 500 mg PO DAILY 04/13/13 Hydrocodone 10/APAP 325 [[place] 10/325] 1 tab PO Q6H PRN #20 tab 04/12/15 Docusate [Colace Cap*] 100 mg PO BID 30 Days #60 cap 01/09/20 Insulin Glargine Human [Lantus*] 12 units SQ DAILY WITH BREAKFAST 30 Days #30 ml 01/09/20 Lisinopril [Zestril] 10 mg PO DAILY #30 tablet 01/09/20 Metformin HCl 500 mg PO BID 30 Days #60 tablet 01/09/20 Aspirin [Aspirin EC 81 MG] 81 mg PO BEDTIME 90 Days #90 tablet. 05/25/21 Atorvastatin Calcium 40 mg PO OPT.BED 90 Days #90 tablet 05/25/21 Clopidogrel Bisulfate [Plavix] 75 mg PO DAILY 90 Days #90 tablet 05/25/21 Folic Acid 1 mg PO DAILY 90 Days #90 tablet 05/25/21 New Medications: Aspirin [Aspirin EC 81 MG] 81 mg PO BEDTIME 90 Days #90 tablet. Atorvastatin Calcium 40 mg PO OPT.BED 90 Days #90 tablet Folic Acid 1 mg PO DAILY 90 Days #90 tablet Clopidogrel Bisulfate [Plavix] 75 mg PO DAILY 90 Days #90 tablet Diet: AHA Activity: Ad juana Followup: Keara Aponte FNP [facility] [ALLIED HEALTH PROFESSIONAL] - 1 Week Umair Ramírez MD [ACTIVE - CAN ADMIT] - 05/29/21 (for angiogram) Time spent managing pt's care (in minutes): 40
[2021-05-25] MEDS: ASPIRIN EC 81 MG TAB PO SCH (12:54)
[2021-05-25] MEDS: CLOPIDOGREL 75 MG TABLET PO SCH (12:54)
[2021-05-25] MEDS: GABAPENTIN 400 MG CAP PO SCH (12:54)
[2021-05-25] MEDS: FOLIC ACID 1 MG TABLET PO SCH (12:55)
[2021-05-25] MEDS: ENOXAPARIN 30 MG/0.3 ML SQ SCH (13:00)
[2021-05-25] MEDS: METFORMIN HCL 850 MG TAB PO SCH (13:00)
[2021-05-25 13:30] VITALS: BP 153/75; TEMP 97.3
== END 2021-05-25 01:45 | disposition home or self-care (01) | DRG 65 ==
LOC: ER 15:45 → ERHOLD 19:44 → 2ND 05-23 18:20 → OBSVTOIN 05-24 11:46
PROVIDERS: ADMIT Internal Medicine; ATTEND Internal Medicine
DX: I63.231 Cerebral infarction due to unspecified occlusion or stenosis of right carotid arteries (principal); G81.91 Hemiplegia, unspecified affecting right dominant side; R29.810 Facial weakness; R29.702 NIHSS score 2; E11.9 Type 2 diabetes mellitus without complications; I10 Essential (primary) hypertension; K21.9 Gastro-esophageal reflux disease without esophagitis; E78.2 Mixed hyperlipidemia; Z79.4 Long term (current) use of insulin; Z79.84 Long term (current) use of oral hypoglycemic drugs; Z20.822 Contact with and (suspected) exposure to COVID-19
CPT/HCPCS: 36415; 70450; 70544; 70549; 70553; 71045; 72156; 80048; 80053; 80061; 80076; 82550; 82553; 82947; 83036; 83735; 83880; 84443; 84484; 85025; 85610; 93005; 93306; 93880; 94760; 96365; 96375; 97110; 97116; 97161; 97530; 99284; A9577; G0378; J0360; J1644; J1650; U0003

== ENCOUNTER 2021-05-27 16:02 | Emergency (ER) | payer OTHER ==
--- OUTSIDE RECORDS SUMMARY | 2021-05-27 16:05 | XMS REPORT | Continuity of Care Document ---
:1950 Author Organization [facility] [place] [facility] t Address [address] [place] [address] [address] [place] [address] Care Team Providers Name Role Phone Cirilo Keith Tatiana Primary Care Physician Jean TRISTAN Attending Clinician Unavailable Carlos OROZCO S Attending Clinician [place] PATE Attending Clinician Unavailable MILA_S Attending Clinician Unavailable Fozia-Mbayo_A_AH Attending Clinician Unavailable Raju_P Attending Clinician Unavailable Jean Tristan MD Attending Clinician Brody ARANGO Attending Clinician Unavailable FREDDY GALVAN Attending Clinician Unavailable CURRY_S Admitting Clinician Unavailable Fozia-Mbayo_A_AH Admitting Clinician Unavailable Raju_P Admitting Clinician Unavailable Payers Payer Name Policy Type Policy Number Effective Date Expiration Date [place] GARCIA [id number] 2021 00:00:00 COUNTS INCLUDE 234 BEDS AT THE [facility] CYNDEEWMushtaq 2020 (MEDICARE 00:00:00 REPLACEMENT HMO) [facility] [place] [id number] 2019 [place]US (MEDICARE 00:00:00 REPLACEMENT/ADVANTA GE - HMO) [facility] [place] [id number] 2018 (MEDICARE 00:00:00 REPLACEMENT/ADVANTA GE - HMO) JOSE () [id number] 2005 00:00:00 [employer] [place] PL[place] [id number] 2016 CHOICE 00:00:00 JOSE [id number] 2005 00:00:00 Problems Condition Condition Condition Status Onset Resolution Last Treating Co mments Source Name Details Category Date Date Treatment Clinician Date Senile Senile Problem Active [facility] purpura Purpura 1-26 Family 00:00: Practic 00 e Peripheral Peripheral Problem Active [facility] vascular Vascular 1-26 Family disease Disease 00:00: Practic 00 e Type 2 Type 2 Problem Active [facility] diabetes Diabetes 9-17 Family mellitus Mellitus 00:00: Practi c with with 00 e peripheral Peripheral angiopathy Angiopathy Diabetic Diabetic Problem Active Holder ge peripheral Peripheral 7-17 Fa angel neuropathy Neuropathy 00:00: Pr actic 00 e Major Major Problem Active [facility] depressive Depressive 7-17 Fa angel disorder Disorder 00:00: Practi c 00 e Essential Essential Problem Active Glenn charo hypertensi Hypertensi 7-17 Fa angel on on 00:00: Practic 00 e Bilateral Bilateral Problem Active Glenn charo knee pain Knee Pain 7-17 Fami ly 00:00: Practic 00 e Febrile Febrile Disease Active 2018- Univers 1-18 ity of 00:00: [place] [facility] Burn Burn Disease Active 2018- Univers 1-16 ity of 00:00: [facility] Lumbar Lumbar Disease Active Univers radiculopa radiculopa 7-19 it y of thy thy 00:00: [place] [facility] Total knee Total knee Disease Active U nivers replacemen replacemen 7-18 it y of t status t status 00:00: [place] [facility] Left knee Left knee Disease Active Uni vers pain pain 3-10 ity of 00:00: [place] [facility] Left knee Left knee Disease Active Uni vers pain pain 1-21 ity of 00:00: [place] [facility] Trigger Trigger Problem Active [facility] [...] with with Outpati hyperglyce hyperglyce en t [facility] Clinics Essential Essential Problem Active [facility] hypertensi hypertensi Safia kes - on on Memoria l [facility] ent Clinics Trigger Trigger Problem Active [facility] finger, finger, [facility] - unspecifie unspecifie Me moria d finger, d finger, l unspecifie unspecifie Ou tpati d d ent laterality laterality Cl inics Allergic Allergic Problem Active [facility] rhinitis rhinitis [facility] - Memoria l [facility] Clinics Depression Depression Problem Active [facility] with with [facility] - anxiety anxiety Memoria l [facility] Clinics Chronic Chronic Problem Active [facility] pain pain Lukes - syndrome syndrome Memori a l [facility] ent Clinics Seasonal Seasonal Problem Active [facility] t allergies allergies Luke s - Memoria l [facility] ent Clinics Vulvovagin Vulvovagin Problem Active [facility] itis itis [facility] - Memoria l [facility] Clinics Lipoma of Lipoma of Problem Active [facility] torso torso [facility] - Memoria l [facility] Clinics Screening Screening Problem Active [facility] for colon for colon Luke s - cancer cancer Memoria l [facility] Clinics Screening Screening Problem Active [facility] for breast for breast Safia kes - cancer cancer Memoria l [facility] Clinics Primary Primary Problem Active [facility] osteoarthr osteoarthr Safia kes - itis of itis of Memoria left hand left hand l [facility] ent Clinics Osteopenia Osteopenia Problem Active [facility] of hand, of hand, Lukes - unspecifie unspecifie Me moria d d l laterality laterality Ou tpati ent Clinics Diabetes Diabetes Problem Active [facility] t mellitus, mellitus, Luke s - type 2 type 2 Memoria l [facility] ent Clinics Hospital Hospital Problem Active [facility] t discharge discharge Luke s - follow-up follow-up Juan rico l [facility] ent Clinics Acute pain Acute pain Problem Active [facility] of right of right [facility] - knee knee Memoria l [facility] Clinics Effusion Effusion Problem Active [facility] t of knee of knee [facility] - joint joint Memoria right right l [facility] ent Clinics Primary Primary Problem Active [facility] osteoarthr osteoarthr Safia kes - itis, itis, Memoria right hand right hand l [facility] ent Clinics Primary Primary Problem Active [facility] osteoarthr osteoarthr Safia kes - itis itis Memoria involving involving l multiple multiple Outpat i joints joints ent Clinics Cough Cough Problem Active [facility] - Memoria l Outpati ent Clinics Common Common Problem Active [facility] cold virus cold virus Safia kes - Memoria l [facility] Clinics Exposure Exposure Problem Active [facility] t to the flu to the flu Safia kes - Memoria l [facility] ent Clinics Body aches Body aches Problem Active [facility] - Memoria l Outpati ent Clinics Pain in Pain in Problem Active [facility] left knee left knee Luke s - Memoria l [facility] Clinics Other Other Diagnosis Active [facility] chronic chronic [facility] - pain pain Memoria l [facility] Clinics Allergies, Adverse Reactions, Alerts Allergy Allergy Status Severity Reaction(s) Onset Inactive Treating Comm ents Source Name Type Date Date Clinician NO KNOWN Drug Active Univers ALLERGIE Class ity of S [facility] Social History Social Habit Start Date Stop Date Quantity Comments Source History of Cigarette Smoker Universi ty of tobacco use [facility] Alcohol intake 2021-03-20 2021-03-20 0 /d University of 00:00:00 00:00:00 [facility] Tobacco use and 2015-12-23 2015-12-23 Never used Universit y of exposure 00:00:00 00:00:00 [facility] Sex [birth year] At [birth year] Universit y of 00:00:00 00:00:00 [facility] Smoking Status Start Date Stop Date Source Former Smoker [facility] Medications Ordered Filled Start Stop Current Ordering Indication Dosage Frequency Signature Comments Components Source Medication Medication Date Date Medication? Clinician (SIG) Name Name triamcinolo 2020-05- No [id number] 40mg Univers ne 0-25 10-25 ity of acetonide 22:45: 21:44 [place] (KENALOG) 00 :00 Medical injection Branch 40 mg triamcinolo 2020-05- No [id number] 40mg 40 mg, Univers ne 0-25 10-25 [...] ent the day Clinics GABAPENTIN 2020-0 Yes [id number] TAKE 1 Univers 300 mg 8-04 CAPSULE BY ity of capsule 00:00: MOUTH 3 [place] 00 TIMES A Medical DAY Branch Januvia Januvia 2020-0 Yes Alicia [address] 5-26 Millender [facility] - 00:00: Memoria 00 l Outpati ent Clinics Diclofenac 2020-0 Yes [id number] Apply to Univers Sodium 3-19 area(s) 4 [...] 2-07 by mouth ity of 09:42: daily. [place] 43 Medical Branch insulin 2020-0 Yes 15U inject 15 Unive rs glargine 2-07 Units ity of (LANTUS 09:42: under the [place] U-100) 100 43 skin at Medica l unit/mL bedtime. Branch injection dapaglifloz 2020-0 Yes Farxiga 5 U nivers in 2-07 mg tablet ity of (FARXIGA) 5 09:42: Take 1 [place] mg tablet 43 tablet Medical every day Branch by oral route. hydrOXYzine 2020-0 Yes [id number] 25mg Take 1 Univers 25 mg 1-31 tablet by ity of tablet 00:00: mouth [place] 00 every 6 Medical (six) Branch hours as needed for Itching. gabapentin 2020-0 Yes [id number] 600mg Take 1 Univers 600 mg 1-31 tablet by ity of tablet 00:00: mouth 3 [place] 00 (three) Medical times Branch daily. methylPREDN 2020-0 Yes [id number] 84mg Take 21 Univers ISolone 1-16 tablets by ity of (MEDROL, 00:00: mouth [place] PURNIMA,) 4 mg 00 SEE-INSTRU Med ical tablets CTIONS. Branch follow package directions lisinopril 2018-05 Yes 10mg Take 10 mg U nivers 10 mg 2-24 by mouth ity of tablet 00:00: daily. [place] [facility] citalopram 2018-05 Yes 10mg Take 10 mg U nivers 10 mg 2-24 by mouth ity of tablet 00:00: daily. [place] [facility] naproxen Yes TAKE 1 Univers 500 mg 7-11 TABLET ity of tablet 00:00: WITH FOOD OR MILK Medical NEEDED Branch TWICE A DAY ORALLY 30 DAYS LORazepam Yes TAKE 1 Univer s 0.5 mg 7-10 TABLET BY ity of tablet 00:00: MOUTH EVERY 12 Medical HOURS Branch NEEDED FOR ANXIETY terbinafine Yes 250mg Take 250 U nivers HCl 250 mg 6-13 mg by ity of tablet 00:00: mouth [place] 00 daily. Medical Branch acetaminoph acetaminoph No [...] DAY citalopram citalopram No 1 Q1D citalopram [place] 10 mg 10 mg 10 mg Family tablet Take tablet Take tablet Practic 1 tablet 1 tablet Take 1 e every day every day tablet by oral by oral every day route. route. by oral route. dexamethaso dexamethaso No dexamethas [facility] ne 6 mg ne 6 mg one 6 mg Famil y tablet tablet tablet Practic e diclofenac diclofenac No diclofenac [place] 1 % topical 1 % topical 1 % F amily gel APPLY gel APPLY topical Pr actic TO AFFECTED TO AFFECTED gel APPLY e AREA TWICE AREA TWICE TO A DAY A DAY AFFECTED AREA TWICE A DAY diclofenac diclofenac No diclofenac [facility] sodium 75 sodium 75 sodium 75 Family [...] oral day by route. route. oral route. Celexa Celexa Yes Alicia 1 tablet [facility] Clinics gabapentin gabapentin No gabapentin [place] 800 mg 800 mg 800 mg Family tablet TAKE tablet TAKE tablet Practic 1 TABLET BY 1 TABLET BY TAKE 1 e MOUTH THREE MOUTH THREE TABLET BY TIMES A DAY TIMES A DAY MOUTH THREE TIMES A DAY glimepiride glimepiride No glimepirid [facility] 2 mg tablet 2 mg tablet e [...] TEST BLOOD TEST BLOOD GLUCOSE GLUCOSE GLUCOSE Acetaminoph Acetaminoph Yes Alicia [address] en-Codeine en-Codeine Millender as needed [facility] - #3 #3 [facility] levofloxaci levofloxaci No levofloxac [facility] n 500 mg n 500 mg in 500 mg Fa angel tablet tablet tablet Practic e lisinopril lisinopril No lisinopril [facility] 10 mg 10 mg 10 mg Family tablet tablet tablet Practic e lisinopril lisinopril No lisinopril [facility] 20 mg 20 mg 20 mg Family tablet Take tablet Take tablet Practic 1 tablet 1 tablet Take 1 e every day every day tablet by oral by oral every day route. route. by oral route. meloxicam meloxicam No meloxicam [facility] 7.5 mg 7.5 mg 7.5 mg Family tablet Take tablet Take tablet Practic 1 tablet 1 tablet Take 1 e every day every day tablet by oral by oral every day route. route. by oral route. metformin metformin No metformin [facility] 1,000 mg 1,000 mg 1,000 mg Fam mara tablet Take tablet Take tablet Practic 1 tablet 1 tablet Take 1 e twice a day twice a day tablet by oral by oral twice a route. route. day by oral route. metformin metformin No metformin [facility] 500 mg 500 mg 500 mg Family tablet tablet tablet Practic e methylpredn methylpredn No methylpred [facility] isolone 4 isolone 4 nisolone 4 Family mg tablets mg tablets mg tablets Practic in a dose in a dose in a dose e pack pack pack ondansetron ondansetron No ondansetro [facility] HCl 4 mg HCl 4 mg n [...] Yes Alicia [address] Millender [facility] pregabalin pregabalin No pregabalin [facility] 75 mg 75 mg 75 mg Family capsule capsule capsule Practi c e Ultra Thin Ultra Thin No Ultra Thin [facility] Lancets 31 Lancets 31 Lancets 31 Family gauge Use gauge Use gauge Use Practic to test to test to test e blood blood blood glucose glucose glucose once a day once a day once a day Melatonin Melatonin Yes Alicia [address] Millender at bedtime [place] - as needed Memoria with food l [facility] ent Clinics Gabapentin Gabapentin Yes Alicia [address] Millender [facility] Clinics Farxiga 5 Farxiga 5 No [...] nasal mcg/actuat spray,suspe spray,suspe ion nasal nsion [place] nsion [place] spray,susp 1 spray 1 spray ension twice a day twice a day [place] 1 by by spray intranasal intranasal twice a route for route for day by 30 days. 30 days. intranasal route for 30 days. Diclofenac Diclofenac Yes Alicia TAKE [address] Sodium Sodium Millender TABLET BY L ukes - MOUTH Memoria TWICE A l DAY WITH [facility] MEALS ent Clinics metformin metformin No 1 [...] with meals Luke s - Memoria l [facility] ent Clinics Vital Signs Vital Name Observation Time Observation Value Comments Source Systolic blood 2021-03-20 19:58:00 111 mm[Hg] [facility] Diastolic blood 2021-03-20 19:58:00 67 mm[Hg] [facility] Heart rate 2021-03-20 19:58:00 97 /min [facility] Body height 2021-03-20 19:58:00 163.8 cm [facility] Body weight 2021-03-20 19:58:00 70.308 kg [facility] BMI 2021-03-20 19:58:00 26.19 kg/m2 [facility] Height 2020-02-12 00:00:00 63 [in_i] [facility] Height 2019-12-11 00:00:00 63 [in_i] [facility] Practice BMI (Body Mass 2019-12-11 00:00:00 28.9 kg/m2 [facility] jackeline Family Index) Practice Body Weight 2019-12-11 00:00:00 163 [lb_av] [facility] BP Diastolic 2018-11-14 00:00:00 83 mm[Hg] [facility] Height 2018-11-14 00:00:00 64 [in_i] [facility] BMI (Body Mass 2018-11-14 00:00:00 25.5 kg/m2 [facility] Index) Group BP Systolic 2018-11-14 00:00:00 149 mm[Hg] [facility] Body Weight 2018-11-14 00:00:00 148.4 [lb_av] [facility] Procedures Procedure Date / Time Performed Performing Clinician Sourc e TYMPANOMETRY 2018-11-14 00:00:00 [facility] Plan of Care Planned Activity Planned Date Details Comments Source Instructions [facility] Encounters Start End Encounter Admission Attending Care Care Encounter Source Date/Time Date/Time Type Type Clinicians Facility Department ID 2021-03-22 2021-03-22 Outpatient Diane TRISTAN [facility] [id number] Univers 13:45:00 13:45:00 PAYTON [id number] [facility] 2021-03-22 2021-03-22 [facility] [id number] Univers 13:45:00 13:45:00 PAYTON [facility] 2021-03-20 2021-03-20 [facility] [id number] Univers 14:51:53 16:00:20 Visit [facility] [id number] it teodoro of [place] [id number] Sameer as Cuauhtemoc?Blea [id number] Nv camron [address] Medical Office Building 2021-03-20 2021-03-20 [facility] [id number] Univers 14:45:00 14:45:00 ROHAN [id number] [facility] 2021-03-20 2021-03-20 Outpatient Diane PATE [facility] [id number] Univers 14:45:00 14:45:00 ROHAN [facility] 2020-12-27 2020-12-27 Outpatient CURRY_S DMG DMG [id number] Devoted 01:40:00 01:40:00 [id number] Medica l Group 2020-07-01 2020-07-01 Outpatient Fozia-Mbayo VFP VFP [id number] [facility] 05:22:00 05:22:00 _A_AH [id number] Family Practic e 2020-07-01 2020-07-01 Outpatient Fozia-Mbayo VFP VFP [id number] [place] 05:22:00 05:22:00 _A_AH [id number] Family Practic e 2020-06-23 2020-06-23 Outpatient Fozia-Mbayo VFP VFP [id number] [place] 02:12:00 02:12:00 _A_AH [id number] Family Practic e 2020-06-22 2020-06-22 Outpatient Fozia-Mbayo VFP VFP [id number] [place] 10:49:00 10:49:00 _A_AH [id number] Family Practic e 2020-06-21 2020-06-21 Prerna VFP [place] - [id number] [facility] 00:00:00 00:00:00 Fozia-Mbay [facility] Fam mara jennings WIRE REPAIRER: Medical - Practi c [address] [email or web address] [facility], [address] [address], [place] [address] , Ph. 2020-04-13 2020-04-13 Outpatient Raju_P MMG MMG [id number] [facility] 02:32:00 02:32:00 [id number] [facility] 2020-03-01 2020-03-01 Outpatient Fozia-Mbayo VFP VFP [id number] [place] 04:05:00 04:05:00 _A_AH [id number] Family Practic e 2020-02-29 2020-02-29 Outpatient Fozia-Mbayo VFP VFP [id number] [place] 01:50:00 01:50:00 _A_AH [id number] Family Practic e 2020-02-22 2020-02-22 Outpatient Fozia-Mbayo VFP [facility] [address] [place] [address] 08:48:00 08:48:00 _A_AH [id number] Family Practic e 2020-02-12 2020-02-12 Prerna VFP [place] - [id number] V illage 00:00:00 00:00:00 Fozia-Mbay [facility] Fam mara jennings WIRE REPAIRER: Medical - Practi c [address] [email or web address] e [facility], [address] [place] [address], [place] [address] , Ph. 2020-02-03 2020-02-03 [facility] [id number] 11:00:00 11:00:00 [facility] Family Medicine Medicine Outpati ent Clinics 2020-01-11 2020-01-11 Outpatient Fozia-Mbayo VFP [address] 06:55:00 06:55:00 _A_AH [id number] Family Practic e 2020-01-06 2020-01-06 Outpatient Fozia-Mbayo VFP P [address] [place] [address] 07:22:00 07:22:00 _A_AH [id number] Family Practic e 2020-01-06 2020-01-06 Outpatient Fozia-Mbayo VFP P [address] [place] [address] 07:22:00 07:22:00 _A_AH [id number] Family Practic e 2019-12-30 2019-12-30 Outpatient Fozia-Mbayo VFP P [address] [place] [address] 07:14:00 07:14:00 _A_AH [id number] Family Practic e 2019-12-28 2019-12-28 RORY Knapp [id number] 00:00:00 00:00:00 [facility] [id number] Surgical [id number] Specialti [id number] es 198 [place] 2019-12-28 2019-12-28 RORY Knapp [id number] 00:00:00 00:00:00 [facility] [id number] Surgical [id number] Specialti [id number] es 198 [place] 2019-12-25 2019-12-25 Outpatient Fozia-Ysabel VFP VFP [id number] [facility] 01:52:00 01:52:00 _A_AH [id number] Family Practic e 2019-12-23 2019-12-23 Outpatient [facility] [id number] 10:54:00 10:54:00 [facility] l Group Outpati ent Clinics 2019-12-17 2019-12-17 Outpatient Fozia-Emo VFP P [id number] [facility] 10:07:00 10:07:00 _A_AH [id number] Family Practic e 2019-12-11 2019-12-11 Prerna VFP [place] - [id number] V illage 00:00:00 00:00:00 FoziaEsme [facility] Fam mara jennings WIRE REPAIRER: Medical - Practi c [address] [email or web address]_ e [facility], [address] [address], [place] [address] , Ph. 2019-12-10 2019-12-10 Office Azalea [facility] [id number] 15:07:12 15:45:01 Visit [facility] [id number] Surgical [id number] Specialti [id number] es 198 [place] 2019-12-10 2019-12-10 Outpatient Diane TRISTAN [facility] [id number] Univers 15:00:00 15:00:00 PAYTON [id number] [facility] 2019-12-10 2019-12-10 [facility] [id number] Univers 15:00:00 15:00:00 PAYTON [facility] 2019-12-03 2019-12-03 [facility] [id number] 14:42:00 14:42:00 [facility] Medicine Outpati ent Clinics 2019-10-27 2019-10-27 [facility] [id number] 16:30:00 16:30:00 t [facility] - [facility] ent [facility] 2019-10-20 2019-10-20 Outpatient Dieter Dietert [id number] 22:55:00 22:55:00 [facility] ent Clinics 2019-10-20 2019-10-20 Outpatient Atilioandrea Dietert [id number] 09:40:00 09:40:00 t [facility] ent Clinics 2019-09-22 2019-09-22 Outpatient Diane [facility]ATE [facility] [id number] Univers 10:00:00 10:00:00 ROHAN [id number] [facility] 2019-09-22 2019-09-22 Outpatient Diane [facility]ATE [facility] [id number] Univers 10:00:00 10:00:00 ROHAN [facility] 2019-08-17 2019-08-17 Outpatient Diane PATE [facility] [id number] Univers 13:45:00 13:45:00 ROHAN [facility] 2019-08-17 2019-08-17 Outpatient Diane [facility] [id number] Univers 13:45:00 13:45:00 ROHAN [id number] [facility] 2019-07-23 2019-07-23 Outpatient Fozia-Mbayo VFP [facility] [address] [place] [address] 01:59:00 01:59:00 _A_AH [id number] Family Practic e 2019-07-23 2019-07-23 Outpatient Fozia-Mbayo VFP VFP [id number] 01:59:00 01:59:00 _A_AH [id number] Family Practic e 2019-07-23 2019-07-23 Outpatient Fozia-Mbayo VFP VFP [id number] 01:59:00 01:59:00 _A_AH [id number] Family Practic e 2019-07-16 2019-07-16 Outpatient Diane [facility] [id number] Univers 08:45:00 08:56:09 ROHAN [facility] 2019-06-26 2019-06-26 Outpatient R KAMALJIT ARANGO [facility] [id number] Univers 11:03:09 23:59:00 [facility] 2019-04-28 2019-04-28 Outpatient Diane GALVAN, [facility] [id number] Univers 11:51:08 23:59:00 ANNITA [facility] 2018-11-14 2018-11-14 Declan [facility] [place] - [id number] [facility] 00:00:00 00:00:00 MD Tonya: [address] [facility] - [address], Otolaryngol [facility] [address] , Ph. Results Test Description Test Time Test Comments Results Result Comments Source tympanogram 2018-11-14 10:54:48 Test Item Value Reference Range Interpretation Comme nts Right (test code = Right) Type C Peak is on Left Left (test code = Left) Type B Curve Flat [facility]
--- NOTE | 2021-05-27 17:19 | RAD REPORT ---
EXAM DESCRIPTION: CT - Head Brain Wo Cont - 05/27/2021 5:04 pm CLINICAL HISTORY: NUMBNESS, weakness COMPARISON: Head Brain Wo Cont dated 05/22/2021 TECHNIQUE: Axial 5 mm thick images of the head were obtained without IV contrast. All CT scans are performed using dose optimization technique as appropriate and may include automated exposure control or mA/KV adjustment according to patient size. FINDINGS: No intracranial hemorrhage, mass, edema or shift of mid-line structures. No acute infarcti on changes seen. No cortical edema or sulcal effacement. The patient has minimal atrophy and chronic ischemic changes are stable over the short interval since prior imaging. No abnormal extra-axial flui d collections. Ventricles are normal. Mastoid air cells and visualized portions of the paranasal sinuses are clear. No acute bony findings. IMPRESSION: Negative non-contrast CT head examination for acute finding. No significant change from the examination 4 days earlier.
[2021-05-27] MEDS ORDERED: NA CHLORIDE 0.9% 1,000 ML ONE (17:29)
[2021-05-27 17:34] LABS: Protime INR 1.01
[2021-05-27 17:35] LABS: Absolute Lymphocytes (CBC) 2.4 K/uL (0.7-4.9); Hematocrit 38.5 % (36.0-45.0); MPV 10.1 fL (7.6-11.3); RBC Red Blood Cell Count 4.47 M/uL (3.86-4.86)
--- NOTE | 2021-05-27 17:40 | ER ---
Nurse's Notes [facility] Name: Yadira Land Age: 71 yrs Sex: Female : 1950 Arrival Date: 05/27/2021 Time: 16:06 Bed 17 Private MD: Diagnosis: Cerebral infarction, unspecified-right arm, leg numbness, left facial droop;Unspecified kidney failure Presentation: 05/27 16:19 Chief complaint: Patient states: is due to have a stent placed in her carotid artery on iw Saturday with Dr. Ramírez, was d/c 2 days ago. but now started having numbness in right arm last night, same symptoms as previous visit. Coronavirus screen: At this time, the client does not indicate any symptoms associated with coronavirus-19. Ebola Screen: Patient negative for fever greater than or equal to 101.5 degrees Fahrenheit, and additional compatible Ebola Virus Disease symptoms Patient denies exposure to infectious person. Patient denies travel to an Ebola-affected area in the 21 days before illness onset. No symptoms or risks identified at this time. Initial Sepsis Screen: Does the patient meet any 2 criteria? No. Patient's initial sepsis screen is negative. Does the patient have a suspected source of infection? No. Patient's initial sepsis screen is negative. Risk Assessment: Do you want to hurt yourself or someone else? Patient reports no desire to harm self or others. Onset of symptoms was May 26, 2021. 16:19 Method Of Arrival: Wheelchair iw 16:19 Acuity: KARSTEN 3 iw Triage Assessment: 19:15 General: Appears. ae4 Historical: - Allergies: 16:21 No Known Allergies; iw - Home Meds: 16:21 citalopram 10 mg tab 1 tab once daily [Active]; gabapentin 800 mg Oral tab 1 tab 3 iw times per day [Active]; lisinopril 20 mg Oral tab 1 tab once daily [Active]; meloxicam 7.5 mg Oral tab 1 tab once daily [Active]; metformin 1,000 mg Oral tr24 1 tab twice a day [Active]; - PMHx: 16:21 Diabetes - NIDDM; Hypertension; iw - PSHx: 16:21 2 abdominal surgeries to remove mass; Appendectomy; Cholecystectomy; iw - Immunization history:: Client reports receiving the 2nd dose of the Covid vaccine. - Social history:: Smoking status: Patient denies any tobacco usage or history of. - Family history:: not pertinent. Screenin:58 Abuse screen: Denies threats or abuse. Nutritional screening: No deficits noted. ae4 Tuberculosis screening: No symptoms or risk factors identified. Fall Risk None identified. Assessment: 16:45 General: Appears in no apparent distress. uncomfortable, Behavior is cooperative, ae4 anxious. Pain: Denies pain. Neuro: Level of Consciousness is awake, alert, obeys commands, Oriented to person, place, situation. Cardiovascular: Capillary refill < 3 seconds Patient's skin is warm and dry. Respiratory: Airway is patent Respiratory effort is even, unlabored, Respiratory pattern is regular, symmetrical. GI: No signs and/or symptoms were reported involving the gastrointestinal system. Abdomen is round non-distended. : Urine is clear, Denies burning with urination. EENT: No signs and/or symptoms were reported regarding the EENT system. Derm: Skin is pink, warm \\T\\ dry. Musculoskeletal: Reports numbness in right arm. 17:30 Reassessment: No changes from previously documented assessment. Patient and/or family ae4 updated on plan of care and expected duration. Pain level reassessed. Patient is alert, oriented x 3, equal unlabored respirations, skin warm/dry/pink. 18:58 Reassessment: Assisted patient onto bedpan to urinate. Urine sample obtained at this ae4 time. 19:15 Reassessment: Patient appears in no apparent distress at this time. No changes from ae4 previously documented assessment. Patient and/or family updated on plan of care and expected duration. Pain level reassessed. 19:23 Reassessment: [facility] to give report. Receiving nurse unavailable to ae4 receive report at this time. Report given to [facility] cage shift manager nurse.Theo RN. Vital Signs: 16:19 BP 140 / 71; Pulse 105; Resp 16; Temp 97.8; Pulse Ox 98% on R/A; Weight 68.04 kg; iw Height 5 ft. 4 in. (162.56 cm); 16:55 BP 154 / 90; Pulse 104; Resp 17; Pulse Ox 100% on R/A; ae4 17:00 BP 156 / 78; Pulse 104; Resp 17; Pulse Ox 100% on R/A; ae4 17:00 BP 129 / 114; Pulse 107; Resp 17; Pulse Ox 97% on R/A; ae4 19:11 BP 148 / 89; Pulse 99; Resp 17; Pulse Ox 100% on R/A; ae4 21:00 BP 165 / 100; Pulse 95; Resp 16 S; Pulse Ox 100% on R/A; as6 23:00 BP 154 / 73; Pulse 94; Resp 18 S; Pulse Ox 100% on R/A; as6 16:19 Body Mass Index 25.75 (68.04 kg, 162.56 cm) iw NIH Stroke Scale Scores: 17:06 NIHSS Score: 2 kirit ED Course: 16:06 Patient arrived in ED. ds1 16:21 Triage completed. iw 16:22 Arm band placed on. iw 16:23 Jorge Craven MD is Attending Physician. kirit 16:24 Ronnell Carreno, MAIKEL is Primary Nurse. ae4 16:45 Placed in gown. Bed in low position. Call light in reach. Side rails up X 1. Adult w/ ae4 patient. threat monitoring analyst on. Pulse ox on. NIBP on. Warm blanket given. 16:50 Inserted saline lock: 20 gauge in right forearm, using aseptic technique. ,using ae4 aseptic technique. Inserted by [facility] Blood collected. 16:50 IV discontinued, Pressure dressing applied, IV site visibly swollen, patient reported ae4 pain upon flushing. I V discontinued. 17:00 Inserted saline lock: 22 gauge in left antecubital area, using aseptic technique. ae4 17:04 CT Head Brain wo Cont In Process Unspecified. EDMS 17:18 XRAY Chest (1 view) In Process Unspecified. EDMS 17:[address] Craven with Sravan Godoy from the [facility] Transfer eb Center. 17:43 connected the neuro tool honing machine set up operator for [facility] with Dr. Craven for patient transfer eb consultation. 18:04 SARS-COV-2 RT PCR (Document "Date of Onset" if Symptomatic) Sent. mb4 18:04 SARS-COV-2 RT PCR Sent. mb4 18:[address] Phan the hospitalist tool honing machine set up operator for [facility] with Dr. Craven for eb patient transfer consultation. 18:54 administrative approval given by Sravan Godoy/ patient has been accepted to [facility] Bed 2227/ Dr. Phan has accepted the patient in transfer/ report to be called to [phone]. 23:31 No provider procedures requiring assistance completed. as6 Administered Medications: 17:40 Drug: NS 0.9% 500 ml Route: IV; Rate: bolus; Site: left antecubital; ae4 18:20 Follow up: IV Status: Completed infusion; IV Intake: 500ml ae4 18:00 Drug: NS 0.9% 1000 ml Route: IV; Rate: 125 ml/hr; Site: left antecubital; ae4 23:32 Follow up: Response: No adverse reaction; IV Status: Order to discontinue infusion; IV as6 Intake: 600ml 19:45 Drug: Rocephin (cefTRIAXone) 1 grams Route: IV; Rate: per protocol; Site: left ae4 antecubital; 23:32 Follow up: Response: No adverse reaction; IV Status: Completed infusion; IV Intake: [id number] 19:46 Drug: PlaVIX (clopidogrel) 75 mg Route: PO; ae4 23:32 Follow up: Response: No adverse reaction as6 19:46 Drug: Aspirin 81 mg Route: PO; ae4 23:32 Follow up: Response: No adverse reaction as6 Intake: 18:20 IV: 500ml; Total: 500ml. ae4 23:32 IV: 600ml; Total: 1100ml. as6 23:32 IV: 50ml; Total: 1150ml. as6 Outcome: 17:40 ER care complete, transfer ordered by MD. beth 23:31 Transferred by ground EMS to [facility], Transfer form completed. as6 X-rays sent w/ patient. 23:31 Condition: stable 23:33 Patient left the ED. as6 NIH Stroke Scale - NIH Stroke Score Date: 05/27/2021 Time: 17:06 Total Score = 2 1a. Level of Consciousness (LOC) - 0(Alert) 1b. Level of Consciousness (LOC) (Month \\T\\ Age) - 0(Both) 1c. LOC Commands (Open \\T\\ Closes Eyes/Insole Presser) - 0(Both) 2. Best Gaze (Lateral Gaze Paresis) - 0(Normal) 3. Visual Field Loss - 0(No visual loss) 4. Facial Palsy - 1(Minor Paralysis) 5a. Left Arm: Motor (10-second hold) - 0(No drift) 5b. Right Arm: Motor (10-second hold) - 0(No drift) 6a. Left Leg: Motor (5-second hold - always test supine) - 0(No drift) 6b. Right Leg: Motor (5-second hold - always test supine) - 0(No drift) 7. Limb Ataxia (finger/nose \\T\\ heel/glass - test with eyes open) - 0(Absent) 8. Sensory Loss (pinprick arms/legs/face) - 1(Mild to moderate loss) 9. Best Language: Aphasia (description/naming/reading) - 0(No aphasia) 10. Dysarthria (speech clarity - read or repeat words) - 0(Normal) 11. Extinction and Inattention (visual/tactile/auditory/spatial/personal) - 0(No abnormality) Initials: kirit Signatures: Dispatcher [employer] Jorge Barrett MD MD cha Sanford, Demi ds1 Beba Evans, RN RN Radha Keating Mackenzie mb4 Ronnell Carreno RN RN ae4 Theo Green, RN RN as6
--- NOTE | 2021-05-27 17:40 | EDPHYS ---
Physician Documentation [facility] Name: Yadira Land Age: 71 yrs Sex: Female : 1950 Arrival Date: 05/27/2021 Time: 16:06 Bed 17 Private MD: ED Physician Jorge Craven HPI: 05/27 17:06 This 71 yrs old Female presents to ER via Wheelchair with complaints of kirit Numbness -R Side. 17:06 The patient's problem is reported as paresthesias, in right upper extremity, in right kirit lower extremity. Onset: The symptoms/episode began/occurred 1 day(s) ago. Duration: The episode is continuous. Context: the episode(s) was witnessed, by family, symptoms became apparent on May 26, 2021, occurred at home. The symptoms are alleviated by nothing. The symptoms are aggravated by nothing. Associated signs and symptoms: The patient has no apparent associated signs or symptoms. Severity of symptoms: At their worst the symptoms were moderate in the emergency department the symptoms are unchanged. Patient's baseline: Neuro: alert and fully oriented. The patient has experienced a previous episode, last week, occurred on Saturday improved , yesterday numbness began to increase on right side. Historical: - Allergies: 16:21 No Known Allergies; iw - Home Meds: 16:21 citalopram 10 mg tab 1 tab once daily [Active]; gabapentin 800 mg Oral tab 1 tab 3 iw times per day [Active]; lisinopril 20 mg Oral tab 1 tab once daily [Active]; meloxicam 7.5 mg Oral tab 1 tab once daily [Active]; metformin 1,000 mg Oral tr24 1 tab twice a day [Active]; - PMHx: 16:21 Diabetes - NIDDM; Hypertension; iw - PSHx: 16:21 2 abdominal surgeries to remove mass; Appendectomy; Cholecystectomy; iw - Immunization history:: Client reports receiving the 2nd dose of the Covid vaccine. - Social history:: Smoking status: Patient denies any tobacco usage or history of. - Family history:: not pertinent. ROS: 17:06 Constitutional: Negative for fever, chills, and weight loss, Eyes: Negative for injury, kirit pain, redness, and discharge, ENT: Negative for injury, pain, and discharge, Neck: Negative for injury, pain, and swelling, Cardiovascular: Negative for chest pain, palpitations, and edema, Respiratory: Negative for shortness of breath, cough, wheezing, and pleuritic chest pain, Abdomen/GI: Negative for abdominal pain, nausea, vomiting, diarrhea, and constipation, Back: Negative for injury and pain, : Negative for injury, bleeding, discharge, and swelling, MS/Extremity: Negative for injury and deformity, Skin: Negative for injury, rash, and discoloration, Psych: Negative for depression, anxiety, suicide ideation, homicidal ideation, and hallucinations, Allergy/Immunology: Negative for hives, rash, and allergies, Endocrine: Negative for neck swelling, polydipsia, polyuria, polyphagia, and marked weight changes. 17:06 Neuro: Positive for numbness, of the right arm and right leg. Exam: 17:06 Constitutional: This is a well developed, well nourished patient who is awake, alert, kirit and in no acute distress. Head/Face: Normocephalic, atraumatic. Eyes: Pupils equal round and reactive to light, extra-ocular motions intact. Lids and lashes normal. Conjunctiva and sclera are non-icteric and not injected. Cornea within normal limits. Periorbital areas with no swelling, redness, or edema. ENT: Nares patent. No nasal discharge, no septal abnormalities noted. Tympanic membranes are normal and external auditory canals are clear. Oropharynx with no redness, swelling, or masses, exudates, or evidence of obstruction, uvula midline. Mucous membranes moist. Neck: Trachea midline, no thyromegaly or masses palpated, and no cervical lymphadenopathy. Supple, full range of motion without nuchal rigidity, or vertebral point tenderness. No Meningismus. Chest/axilla: Normal chest wall appearance and motion. Nontender with no deformity. No lesions are appreciated. Cardiovascular: Regular rate and rhythm with a normal S1 and S2. No gallops, murmurs, or rubs. Normal PMI, no JVD. No pulse deficits. Respiratory: Lungs have equal breath sounds bilaterally, clear to auscultation and percussion. No rales, rhonchi or wheezes noted. No increased work of breathing, no retractions or nasal flaring. Abdomen/GI: Soft, non-tender, with normal bowel sounds. No distension or tympany. No guarding or rebound. No evidence of tenderness throughout. Back: No spinal tenderness. No costovertebral tenderness. Full range of motion. Female : Normal external genitalia. Skin: Warm, dry with normal turgor. Normal color with no rashes, no lesions, and no evidence of cellulitis. MS/ Extremity: Pulses equal, no cyanosis. Neurovascular intact. Full, normal range of motion. Psych: Awake, alert, with orientation to person, place and time. Behavior, mood, and affect are within normal limits. 17:06 Neuro: Orientation: is normal, appropriate for stated age, no acute changes, Mentation: is normal, appropriate for stated age, no acute changes, Memory: is normal, appropriate for stated age, Cranial nerves: facial droop noted on left, with forehead spared. Cerebellar function: is grossly normal, Motor: is normal, moves all fours, strength is 5/5 in all extremities, Sensation: numbness, that is mild, of the right arm and right leg, Gait: not tested. Deep tendon reflexes are 2+ (normal) in the right patellar, seizure activity, is not displayed by the patient. 18:00 Radiologist reports: negative kirit 18:00 ECG was reviewed by the Attending Physician. Vital Signs: 16:19 BP 140 / 71; Pulse 105; Resp 16; Temp 97.8; Pulse Ox 98% on R/A; Weight 68.04 kg; iw Height 5 ft. 4 in. (162.56 cm); 16:55 BP 154 / 90; Pulse 104; Resp 17; Pulse Ox 100% on R/A; ae4 17:00 BP 156 / 78; Pulse 104; Resp 17; Pulse Ox 100% on R/A; ae4 17:00 BP 129 / 114; Pulse 107; Resp 17; Pulse Ox 97% on R/A; ae4 19:11 BP 148 / 89; Pulse 99; Resp 17; Pulse Ox 100% on R/A; ae4 21:00 BP 165 / 100; Pulse 95; Resp 16 S; Pulse Ox 100% on R/A; as6 23:00 BP 154 / 73; Pulse 94; Resp 18 S; Pulse Ox 100% on R/A; as6 16:19 Body Mass Index 25.75 (68.04 kg, 162.56 cm) iw NIH Stroke Scale Scores: 17:06 NIHSS Score: 2 kirit MDM: 16:23 Patient medically screened. kirit 17:13 Differential diagnosis: CVA, TIA, Dementia, metabolic disorder. Data reviewed: vital kirit signs, nurses notes, EMS record, lab test result(s), EKG, radiologic studies, CT scan, MRI, plain films, ultrasound. Data interpreted: contract accountant: rate is 105 beats/min, rhythm is regular, Pulse oximetry: on room air is 98 %. Test interpretation: by ED physician or midlevel provider: ECG, plain radiologic studies. Counseling: I had a detailed discussion with the patient and/or guardian regarding: the historical points, exam findings, and any diagnostic results supporting the discharge/admit diagnosis, lab results, radiology results. 18:02 Physician consultation: Kenji Wilkes MD after a discussion of the case, a [facility] recommendation for transfer for higher level of care is made, would like medications started, cont aspirin and plavix, no ct angio necessary, transfer to [facility] , for further work up. 05/27 16:45 Order name: Basic Metabolic Panel [facility] 05/27 16:45 Order name: CBC with Diff [facility] 05/27 16:45 Order name: LFT's; Complete Time: 18:28 [facility] 05/27 16:45 Order name: Magnesium; Complete Time: 18:28 [facility] 05/27 16:45 Order name: NT PRO-BNP; Complete Time: 18:28 [facility] 05/27 16:45 Order name: PT-INR; Complete Time: 18:28 [facility] 05/27 16:45 Order name: Troponin (emerg Dept Use Only); Complete Time: 18:28 [facility] 05/27 16:45 Order name: Sed Rate; Complete Time: 18:46 [facility] 05/27 16:45 Order name: CRP; Complete Time: 18:28 [facility] 05/27 16:46 Order name: Basic Metabolic Panel; Complete Time: 18:28 [facility] 05/27 16:46 Order name: CBC with Automated Diff; Complete Time: 18:46 [facility] 05/27 17:42 Order name: SARS-COV-2 RT PCR (Document "Date of Onset" if Symptomatic) 05/27 17:42 Order name: SARS-COV-2 RT PCR; Complete Time: 19:00 [facility]DC 05/27 18:55 Order name: Urine Dipstick-Ancillary; Complete Time: 18:58 [facility]DC 05/27 16:45 Order name: XRAY Chest (1 view); Complete Time: 18:28 [facility] 05/27 16:45 Order name: EKG; Complete Time: 16:46 [facility] 05/27 16:45 Order name: Cardiac monitoring; Complete Time: 18:40 [facility] 05/27 16:45 Order name: EKG - Nurse/Tech; Complete Time: 17:26 [facility] 05/27 16:45 Order name: IV Saline Lock; Complete Time: 17:27 [facility] 05/27 16:45 Order name: Labs collected and sent; Complete Time: 17:27 [facility] 05/27 16:45 Order name: O2 Per Protocol; Complete Time: 17:26 [facility] 05/27 16:45 Order name: O2 Sat Monitoring; Complete Time: 17:27 [facility] 05/27 16:45 Order name: CT Head Brain wo Cont; Complete Time: 18:28 [facility] 05/27 16:45 Order name: Urine Dipstick-Ancillary (obtain specimen); Complete Time: 19:08 [facility] EC:00 Rate is 100 beats/min. Rhythm is regular. QRS [place] is Normal. [place] interval is normal. [facility] QRS interval is normal. QT interval is normal. No Q waves. T waves are Normal. Clinical impression: NSR w/ Non-specific ST/T Changes and No evidence of ischemia. Reviewed by me. Administered Medications: 17:40 Drug: NS 0.9% 500 ml Route: IV; Rate: bolus; Site: left antecubital; ae4 18:20 Follow up: IV Status: Completed infusion; IV Intake: 500ml ae4 18:00 Drug: NS 0.9% 1000 ml Route: IV; Rate: 125 ml/hr; Site: left antecubital; ae4 23:32 Follow up: Response: No adverse reaction; IV Status: Order to discontinue infusion; IV as6 Intake: 600ml 19:45 Drug: Rocephin (cefTRIAXone) 1 grams Route: IV; Rate: per protocol; Site: left ae4 antecubital; 23:32 Follow up: Response: No adverse reaction; IV Status: Completed infusion; IV Intake: [id number] 19:46 Drug: PlaVIX (clopidogrel) 75 mg Route: PO; ae4 23:32 Follow up: Response: No adverse reaction as6 19:46 Drug: Aspirin 81 mg Route: PO; ae4 23:32 Follow up: Response: No adverse reaction as6 Disposition Summary: 05/27/21 17:40 Transfer Ordered Transfer Location: [facility] kirit Reason: Higher level of care kirit Condition: Fair kirit Problem: new kirit Symptoms: have improved kirit Accepting Physician: to barbara martinez(05/27/21 23:33) as6 Diagnosis - Cerebral infarction, unspecified - right arm, leg numbness, left facial droop kriit - Unspecified kidney failure kirit Forms: - Medication Reconciliation Form kirit - SBAR form kirit NIH Stroke Scale - NIH Stroke Score Date: 05/27/2021 Time: 17:06 Total Score = 2 1a. Level of Consciousness (LOC) - 0(Alert) 1b. Level of Consciousness (LOC) (Month \\T\\ Age) - 0(Both) 1c. LOC Commands (Open \\T\\ Closes Eyes/Location And Measurement Technician) - 0(Both) 2. Best Gaze (Lateral Gaze Paresis) - 0(Normal) 3. Visual Field Loss - 0(No visual loss) 4. Facial Palsy - 1(Minor Paralysis) 5a. Left Arm: Motor (10-second hold) - 0(No drift) 5b. Right Arm: Motor (10-second hold) - 0(No drift) 6a. Left Leg: Motor (5-second hold - always test supine) - 0(No drift) 6b. Right Leg: Motor (5-second hold - always test supine) - 0(No drift) 7. Limb Ataxia (finger/nose \\T\\ heel/glass - test with eyes open) - 0(Absent) 8. Sensory Loss (pinprick arms/legs/face) - 1(Mild to moderate loss) 9. Best Language: Aphasia (description/naming/reading) - 0(No aphasia) 10. Dysarthria (speech clarity - read or repeat words) - 0(Normal) 11. Extinction and Inattention (visual/tactile/auditory/spatial/personal) - 0(No abnormality) Initials: kirit Signatures: Dispatcher [employer] Jorge Barrett MD MD cha Williams, Irene, RN RN iw Elliott, Andrea, RN RN ae4 Theo Green RN RN as6 Corrections: (The following items were deleted from the chart) 18:30 17:40 to barbara martinez cha, cha 23:33 18:30 to [facility], barbara beth as6
[2021-05-27 17:55] LABS: ALT/SGPT 50 U/L (12-78); AST/SGOT 57 U/L (15-37); Albumin 3.9 g/dL (3.4-5.0); Alkaline Phosphatase 77 U/L (45-117); BUN Blood Urea Nitrogen 24 mg/dL (7-18); Bicarbonate 26 mmol/L (21-32); Bilirubin Direct 0.1 mg/dL (0-0.2); Bilirubin Total 0.4 mg/dL (0.2-1.0); C-Reactive Protein 6.72 mg/L (<3.00); Glucose Level 156 mg/dL (74-106); Magnesium 1.9 mg/dL (1.8-2.4); NT PRO-BNP 34 pg/mL (<125); Potassium 4.2 mmol/L (3.5-5.1); Protein, Total 8.3 g/dL (6.4-8.2); Sodium Level 139 mmol/L (136-145); Troponin (Emerg Dept Use Only) < 0.02 ng/mL (0.0-0.045)
--- NOTE | 2021-05-27 18:01 | RAD REPORT ---
EXAM DESCRIPTION: RAD - Chest Single View - 05/27/2021 5:18 pm CLINICAL HISTORY: COUGH COMPARISON: 05/22/2021 portable chest TECHNIQUE: AP portable chest image was obtained 05/27/2021 5:18 pm . FINDINGS: Lungs are clear. Interstitial pattern matches comparison. Heart and vasculature are normal . No measurable pleural effusion and no pneumothorax. No acute bony abnormality seen. No acute aortic findings suspected. IMPRESSION: No acute cardiopulmonary process. No significant change from comparison study.
[2021-05-27 18:56] LABS: Urine Blood Negative (Negative); Urine Glucose Negative (Negative); Urine Protein Negative (Negative); Urine Specific Gravity 1.015 (1.005-1.030)
[2021-05-27] MEDS ORDERED: ASPIRIN 81 MG CHEWABLE TABLET ONE (19:27)
[2021-05-27] MEDS ORDERED: CLOPIDOGREL 75 MG TABLET ONE (19:27)
[2021-05-27] MEDS ORDERED: CEFTRIAXONE 1000 MG/VIAL ONE ×2 (19:27→19:30)
[2021-05-27] MEDS ORDERED: NA CHLORIDE 0.9% 50 ML ONE (19:31)
[2021-05-27 23:41] VITALS: TEMP 97.8
[2021-05-27 23:46] VITALS: O2SAT 100
[2021-05-27 23:49] VITALS: BP 154/73
== END 2021-05-27 23:33 | disposition short-term general hospital (02) ==
LOC: ER 16:02
DX: I63.9 Cerebral infarction, unspecified (principal); R20.8 Other disturbances of skin sensation; R29.810 Facial weakness; R29.702 NIHSS score 2; N19 Unspecified kidney failure; E11.9 Type 2 diabetes mellitus without complications; I10 Essential (primary) hypertension; Z20.822 Contact with and (suspected) exposure to COVID-19
CPT/HCPCS: 96365; 96361; 93005 ×2; 85025; 80048; 36415; 83735; 85610; 80076; 85652; 81003; 84484; 83880; 86140; 70450; 71045; 99285; 96366; U0003; J7030

== ENCOUNTER 2022-02-19 11:25 | Day surgery (SDC) | payer MEDICARE, OTHER ==
[2022-02-16 16:32] LABS: SARS-CoV-2 Antigen Rapid Res Negative (Negative)
[2022-02-19] MEDS ORDERED: NA CHLORIDE 0.9% 1,000 ML ONE (11:53)
[2022-02-19] MEDS ORDERED: CYCLOPENTOLATE 1% OPTH 2 ML ONE (11:59)
[2022-02-19] MEDS ORDERED: LIDOCAINE HCL/PF 3.5% OPTH GEL ONE (11:59)
[2022-02-19] MEDS ORDERED: PHENYLEPHRINE 10% OPTH 5ML ONE (11:59)
[2022-02-19] MEDS ORDERED: PHENYLEPHRINE 10% OPTH 5ML OPTH ONE ×3 (12:15→12:25)
[2022-02-19] MEDS ORDERED: CYCLOPENTOLATE 1% OPTH 2 ML OPTH ONE ×3 (12:15→12:25)
[2022-02-19 12:25] VITALS: O2SAT 98
[2022-02-19] MEDS ORDERED: EPINEPHRINE/PF 1 MG/ML AMP ONE (12:26)
[2022-02-19] MEDS ORDERED: BSS OPTHALMIC SOL 15 ML OPTH ONE (12:26)
[2022-02-19] MEDS ORDERED: BALANCED SALT IRRIG PLAIN 500 ML IRR ONE (12:27)
[2022-02-19] MEDS ORDERED: MOXIFLOXACIN HCL 10 DROPS/ML **OR USE OPTH ONE (12:27)
[2022-02-19] MEDS ORDERED: LIDOCAINE 1% MPF 2 ML AMPULE ONE (12:27)
[2022-02-19] MEDS ORDERED: TRYPAN BLUE 0.5 ML SYR OPTH ONE (12:28)
[2022-02-19] MEDS ORDERED: DUOVISC 1 KIT OPTH ONE (12:28)
[2022-02-19] MEDS ORDERED: POVIDONE-IODINE 5% EYE DROPS ONE (12:28)
[2022-02-19] MEDS ORDERED: LIDOCAINE HCL/PF 3.5% OPTH GEL OPTH ONE ×2 (12:30→13:15)
[2022-02-19] MEDS ORDERED: FENTANYL CITR 100 MCG/2 ML ONE (13:11)
[2022-02-19] MEDS ORDERED: MIDAZOLAM HCL 2 MG/2 ML INJ ONE (13:12)
[2022-02-19 14:39] VITALS: BP 142/46; TEMP 96.3
--- NOTE | 2022-02-20 01:43 | OP ---
Date of Procedure: 02/19/2022 Surgeon: Shazia Low MD Anesthesiologist: Estiven White CRNA. Preoperative Diagnosis: Combined form of cataract, right eye. Operation Performed: Phacoemulsification with intraocular lens implant, right eye. Anesthesia: Per cataract surgery. Complications: None. Description Of Procedure: In the operating room the patient was prepped and draped in the usual sterile fashion for ophthalmic surgery. A lid speculum was placed in the right eye. Two paracentesis sites were made superiorly and inferiorly in the limbal cornea. Preservative free lidocaine then Viscoat were placed in the anterior chamber. A keratome was used to enter the anterior chamber. A 360 degree capsulotomy was performed with a utrata forceps. The lens was hydrodissected with BSS and rotated freely. The lens was removed with a chop technique. 3.59 Phaco CDE was used to remove the lens. Residual cortex was removed with the irrigation and aspiration. Provisc was placed in the capsular bag. A CC60WF, +20.5 lens was placed in the capsular bag without complications. Irrigation and aspiration was used to remove residual viscoelastic. The paracentesis sites were hydrated with BSS. The wound and paracentesis sites were inspected and found to be watertight. Vigamox 0.07 cc was placed intracamerally at the end of the procedure. The eye was patched with a clear plastic shield. The patient was returned to day surgery in good condition. Comments: Discharge Instructions: The patient was discharged to home in good condition and is to follow with Dr. Low in the morning. SIDDHARTH/FANG Voice ID: [id number] Report ID: [id number] PRIYA
== END 2022-02-19 14:35 | disposition home or self-care (01) ==
LOC: OR 11:25
PROVIDERS: ATTEND Ophthalmology Retina Specialist
PROC: 08RJ3JZ Replacement of Right Lens with Synthetic Substitute, Percutaneous Approach (ICD-10-PCS; principal; 2022-02-19 13:00)
DX: H25.811 Combined forms of age-related cataract, right eye (principal); E11.319 Type 2 diabetes mellitus with unspecified diabetic retinopathy without macular edema; Z20.822 Contact with and (suspected) exposure to COVID-19
CPT/HCPCS: 36415; 82947; 87811; 66984; J0171; J2250; J3010; J7030

== ENCOUNTER 2022-03-18 15:19 | Emergency (ER) | payer MEDICARE, OTHER ==
--- OUTSIDE RECORDS SUMMARY | 2022-03-18 15:25 | XMS REPORT | Continuity of Care Document ---
:1950 Author Organization [facility] t Address [address] [place] [address] Care Team Providers Name Role Phone CIRILO ANTONIO Primary Care Physician Unavailable Cirilo Antonio Attending Clinician Unavailable Alicia Chilel Attending Clinician Unavailable PAYTON CRANE Attending Clinician Unavailable Gisselle Attending Clinician Unavailable Colin Evans Attending Clinician SAM MENDIOLA Attending Clinician Unavailable Sam Mendiloa MD Attending Clinician Payton Crane MD Attending Clinician Kishor Attending Clinician Unavailable Ayaka Phan MD Attending Clinician Comfort Edgar MD Attending Clinician [phone] Isi MELENDREZ, Marlon Maravilla Attending Clinician [phone] MARLON ABEL Attending Clinician Unavailable Rohan Chawla Attending Clinician ROHAN PATE Attending Clinician Unavailable MILA_S Attending Clinician Unavailable Fozia-Hernandezayo_A_AH Attending Clinician Unavailable Tonya_P Attending Clinician Unavailable KAMALJIT ARANGO Attending Clinician Unavailable ANNITA GALVAN Attending Clinician Unavailable BWilliams Admitting Clinician Unavailable Keshawn_R Admitting Clinician Unavailable AYAKA PHAN Admitting Clinician Unavailable CURRY_S Admitting Clinician Unavailable Fozia-Mbayo_A_AH Admitting Clinician Unavailable Raju_P Admitting Clinician Unavailable Payers Payer Name Policy Type Policy Number Effective Date Expiration Date S aurelia [facility] 2020 MEDICARE ADVANTAGE 00:00:00 PLAN [id number] 2021 00:00:00 [facility] 2020 (MEDICARE 00:00:00 REPLACEMENT HMO) [employer] [place] [id number] [place] (MEDICARE 00:00:00 REPLACEMENT/ADVANTA GE - HMO) [employer] [place] [id number] (MEDICARE 00:00:00 REPLACEMENT/ADVANTA GE - HMO) () [id number] 2005 00:00:00 [employer] [place] [id number] 2016 CHOICE 00:00:00 [id number] 2005 00:00:00 Problems Condition Condition Condition Status Onset Resolution Last Treating Co mments Source Name Details Category Date Date Treatment Clinician Date Right Right Disease Active [facility] numbness numbness [facility] Medica l 00 Center Senile Senile Problem Active [facility] purpura Purpura 1- Family 00:00: Practic 00 e Peripheral Peripheral Problem Active [facility] vascular Vascular -26 Family disease Disease 00:00: Practic 00 e Type 2 Type 2 Problem Active [facility] diabetes Diabetes 9-17 Family mellitus Mellitus 00:00: Pracmargoth c with with 00 e peripheral Peripheral angiopathy Angiopathy Diabetic Diabetic Problem Active Holder ge peripheral Peripheral 7-17 Fa angel neuropathy Neuropathy 00:00: Pr actic 00 e Major Major Problem Active [place] depressive Depressive 7-17 Fa angel disorder Disorder 00:00: Practi c 00 e Bilateral Bilateral Problem Active Glenn charo knee pain Knee Pain 7-17 Fami ly 00:00: Practic 00 e Febrile Febrile Disease Active 2018-05 Univers 1-18 ity of 00:00: [place] [facility] Lumbar Lumbar Disease Active Univers radiculopa radiculopa 7-19 it y of thy thy 00:00: [place] [facility] Branch Total knee Total knee Disease Active U nivers replacemen replacemen -18 it y of t status t status 00:00: [place] [facility] Left knee Left knee Disease Active Uni vers pain pain 3-10 ity of 00:: [place] [facility] Left knee Left knee Disease Active Uni vers pain pain 1-21 ity of 00:00: [place] [facility] [id number] Right hand Problem C ommon [address] [facility] [id number] Burn Problem Common [facility] [id number] Uncontroll Problem Co mmon ed type 2 Spirit diabetes - CHI mellitus [facility] [id number] Pain in Problem Comm on right knee [facility] [id number] Pain in Problem Common left knee [facility] [id number] Primary Problem Comm on osteoarthr Spirit itis of - CHI right knee [facility] [id number] Effusion Problem Com sat of knee Spirit joint - CHI right [facility] [id number] Body aches Problem Com mon [facility] [id number] Carpal Problem Commo n [id number] tunnel Spirit syndrome - CHI on both [facility] Chronic Other Problem Common pain chronic Spirit pain - [facility] Mixed Depression Problem Commo n anxiety with Spirit and anxiety - CHI depressive [facility] [place] Vulvovagin Problem C ommon itis itis [facility] Diabetes Diabetes Problem Commo n mellitus mellitus, Spiri t type 2 type 2 - [facility] [id number] Primary Problem Common osteoarthr Spirit itis, - CHI right hand [facility] [id number] Osteopenia Problem Co mmon of hand, Spirit unspecifie - CHI d [facility] [id number] Primary Problem Commo n osteoarthr Spirit itis - CHI involving [facility] [id number] Hospital Problem Comm on discharge Spirit follow-up [facility] Essential Essential Problem Com mon hypertensi hypertensi Sp evan on on [facility] Allergic Allergic Problem Commo n rhinitis rhinitis [facility] [id number] Trigger Problem Commo n finger, Spirit left ring - CHI finger [facility] [id number] Exposure Problem Comm on to the flu [facility] [id number] Cough Problem Common [facility] [id number] Chronic Problem Commo n pain Spirit syndrome [facility] [id number] Common Problem Common cold virus [facility] [id number] Lipoma of Problem Co mmon [address] [facility] [id number] Seasonal Problem Comm on allergies [facility] [id number] Screening Problem Com mon for breast [facility] cancer [facility] Allergies, Adverse Reactions, Alerts Allergy Allergy Status Severity Reaction(s) Onset Inactive Treating Comm ents Source Name Type Date Date Clinician NO KNOWN [facility] NO KNOWN Drug Active [facility] ALLERGIE Class ity of S [facility] Family History Family Member Diagnosis Comments Start Date Stop Date Source Family member Heart disease [facility] Family member Stroke [facility] Social History Social Habit Start Date Stop Date Quantity Comments Source History of Common Spirit - Tobacco Use [facility] History SDOH [facility] Alcohol Comment Medical C enter History SDOH [facility] Alcohol Std Medical Cente r Drinks History SDOH [facility] Alcohol Binge Medical Dandy ter Exposure to 2021-10-01 2021-10-11 Not sure University of SARS-CoV-2 00:00:00 15:38:00 [facility] (event) Branch Tobacco use and 2021-05-28 2021-05-[address] [facility] kes exposure 00:00:00 00:00:00 [facility] Alcohol intake 2021-05-28 2021-05-[address] [facility] es 00:00:00 00:00:00 non-drinker Medical Cente r (finding) History SDOH 2021-05-28 2021-05-[address] [facility] Alcohol Frequency 00:00:00 00:00:00 Medical Center Sex Assigned At [address] [facility] reids 00:00:00 00:00:00 Medical Center Smoking Status Start Date Stop Date Source Former Smoker Ivy bolton Former Smoker 2022-02-13 00:00:00 2022-02-13 00:00:00 Common S pirit - [facility] Never smoker [facility] ica Center Medications Ordered Filled Start Stop Current Ordering Indication Dosage Frequency Signature Comments Components Source Medication Medication Date Date Medication? Clinician (SIG) Name Name gabapentin Yes 800mg Q.[id number] Take [address] (NEURONTIN) - [id number] mg by L ukes 800 MG 17:08: 3D mouth 3 Medical tablet 55 (three) Center times daily. folic acid Yes 1mg QD Take [address] (FOLVITE) 1 05-28 by mouth Luke s MG tablet 17:08: daily. Medica [address] atorvastati Yes 40mg QD Take [address] n (LIPITOR) 05-28 by mouth Luke s 40 MG 17:08: nightly. Medical tablet 55 [place] clopidogreL Yes 75mg QD Take [address] (PLAVIX) 75 05-28 by mouth Luke s mg tablet 17:08: daily. Medica [address] chlorthalid Yes 25mg QD Take [address] one 05-28 by mouth [facility]ukes (HYGROTON) 17:08: daily. Medic al 25 MG 55 [place] tablet aspirin 81 Yes 81mg QD Take [address] MG EC 05-28 by mouth [facility]ukes tablet 17:08: daily. Medical [address] [place] [address] glimepiride Yes 2mg Q.5D Take [address] (AMARYL) 2 -02 by mouth 2 Maricel es MG tablet 17:08: (two) Medical 55 times Center daily. gabapentin Yes 800mg Q.[id number] Take [address] (NEURONTIN) 1-02 [id number] mg by L ukes 800 MG 17:08: 3D mouth 3 Medical tablet 55 (three) Center times daily. folic acid 0 Yes 1mg QD Take [address] (FOLVITE) 1 1-02 by mouth Luke s MG tablet 17:08: daily. [address] atorvastati 0 Yes 40mg QD Take [address] n (LIPITOR) 1-02 by mouth Luke s 40 MG 17:08: nightly. Medical tablet 55 [place] clopidogreL 0 Yes 75mg QD Take [address] (PLAVIX) 75 1-02 by mouth Luke s mg tablet 17:08: daily. [address] chlorthalid 0 Yes 25mg QD Take [address] one 1-02 by mouth Lukes (HYGROTON) 17:08: daily. Medic al 25 MG 55 [place] tablet aspirin 81 0 Yes 81mg QD Take [address] MG EC 1-02 by mouth Lukes tablet 17:08: daily. [address] glimepiride 0 Yes 2mg Q.5D Take [address] (AMARYL) 2 1-02 by mouth 2 Maricel es MG tablet 17:08: (two) Medical 55 times Center daily. gabapentin 0 Yes 800mg Q.[id number] Take [address] (NEURONTIN) 1-02 [id number] mg by L ukes 800 MG 17:08: 3D mouth 3 Medical tablet 55 (three) Center times daily. folic acid 0 Yes 1mg QD Take [address] (FOLVITE) 1 1-02 by mouth Luke s MG tablet 17:08: daily. [address] atorvastati 0 Yes 40mg QD Take [address] n (LIPITOR) 1-02 by mouth Luke s 40 MG 17:08: nightly. Medical tablet [address] [place] [address] clopidogreL 0 Yes 75mg QD Take [address] (PLAVIX) 75 1-02 by mouth Luke s mg tablet 17:08: daily. [address] chlorthalid 0 Yes 25mg QD Take [address] one 1-02 by mouth Lukes (HYGROTON) 17:08: daily. Medic al 25 MG 55 [place] tablet aspirin 81 2021-0 Yes 81mg QD Take [address] MG EC 1-02 by mouth [facility]ukes tablet 17:08: daily. [address] glimepiride Yes 2mg Q.5D Take [address] (AMARYL) 2 05-28 by mouth 2 Maricel es MG tablet 17:08: (two) [address] daily. celecoxib 2021- No 200mg QD Take [address] (CeleBREX) - 01-02 mg by [facility] 200 MG 16:11: 00:00 mouth Medical capsule 18 :00 daily. Center celecoxib 2021- No 200mg QD Take [address] (CeleBREX) 05-28 01-02 mg by [facility]ukes 200 MG 16:11: 00:00 mouth Medical capsule 18 :00 daily. [place] celecoxib 2021- No 200mg QD Take [address] (CeleBREX) 05-28 01-02 mg by [facility]ukes 200 MG 16:11: 00:00 mouth Medical capsule 18 :00 daily. [place] Glimepiride Glimepiride Yes Alicia 1 tablet Common 02-02 [place] with Spirit 00:00: breakfast - CHI or the first main [facility] meal of [facility] the day [place] Glimepiride Glimepiride No 1{table Glimepirid 2 MG 2 MG 02-02 t_with_ e 2 MG 00:00: st_or_t he_firs t_main_ meal_of _the_da y} GABAPENTIN 2019- Yes [id number] TAKE 1 Univers 300 mg 8-04 CAPSULE BY ity of capsule 00:00: MOUTH 3 TIMES A Medical DAY Branch GABAPENTIN 2020-0 Yes [id number] TAKE 1 Univers 300 mg 8-04 CAPSULE BY ity of capsule 00:00: MOUTH 3 TIMES A Medical DAY Branch GABAPENTIN 2020-0 Yes [id number] TAKE 1 Univers 300 mg 8-04 CAPSULE BY ity of capsule 00:00: MOUTH 3 TIMES A Medical DAY Branch Januvia Januvia Yes Alicia 1 tablet Co mmon 10-19 [place] Spirit 00:00: - CHI 00 [facility] Januvia 50 Januvia 50 2019-0 No 1{table Januvia 50 MG MG 10-19 t} MG 00:00: 00 Diclofenac 2020-0 Yes [id number] Apply to Univers Sodium 3-19 area(s) 4 ity of (VOLTAREN) 00:00: (four) [place] 1 % gel 00 times Medical daily. Branch Diclofenac 2020-0 Yes [id number] Apply to Univers Sodium 3-19 area(s) 4 ity of (VOLTAREN) 00:00: (four) [place] 1 % gel 00 times Medical daily. Branch Diclofenac 2020-0 Yes [id number] Apply to Univers Sodium 3-19 area(s) 4 ity of (VOLTAREN) 00:00: (four) [place] 1 % gel 00 times Medical daily. Branch metFORMIN 2020-0 Yes 1000mg Take 1,000 Univers (GLUCOPHAGE 2-07 mg by ity of ) 1,000 mg 09:42: mouth 2 [place] tablet 43 (two) Medical times [place] daily with meals. GLIMEPIRIDE 2020-0 Yes 2mg Take 2 mg U nivers ORAL 2-07 by mouth ity of 09:42: daily. [address] insulin 2020-0 Yes 15U inject 15 Unive rs glargine 2-07 Units ity of (LANTUS 09:42: under the [place] U-100) 100 43 skin at Medica l unit/mL bedtime. Branch injection dapaglifloz 2020-0 Yes Farxiga 5 U nivers in 2-07 mg tablet ity of (FARXIGA) 5 09:42: Take 1 [place] mg tablet 43 tablet Medical every day Branch by oral route. metFORMIN 2020-0 Yes 1000mg Take 1,000 Univers (GLUCOPHAGE 2-07 mg by ity of ) 1,000 mg 09:42: mouth 2 [place] tablet 43 (two) Medical times Branch daily with meals. GLIMEPIRIDE 2020-0 Yes 2mg Take 2 mg U nivers ORAL 2-07 by mouth ity of 09:42: daily. [address] insulin 2020-0 Yes 15U inject 15 Unive rs glargine 2-07 Units ity of (LANTUS 09:42: under the [place] U-100) 100 43 skin at Medica l unit/mL bedtime. Branch injection dapaglifloz 2020-0 Yes Farxiga 5 U nivers in 2-07 mg tablet ity of (FARXIGA) 5 09:42: Take 1 [place] mg tablet 43 tablet Medical every day Branch by oral route. metFORMIN 2020-0 Yes 1000mg Take 1,000 Univers (GLUCOPHAGE 2-07 mg by ity of ) 1,000 mg 09:42: mouth 2 [place] tablet 43 (two) Medical times Branch daily with meals. GLIMEPIRIDE 2020-0 Yes 2mg Take 2 mg U nivers ORAL 2-07 by mouth ity of 09:42: daily. [place] 43 Medical Branch insulin 2020-0 Yes 15U inject 15 Unive rs glargine 2-07 Units ity of (LANTUS 09:42: under the [place] U-100) 100 43 skin at Medica l unit/mL bedtime. Branch injection dapaglifloz 2020-0 Yes Farxiga 5 U nivers in 2-07 mg tablet ity of (FARXIGA) 5 09:42: Take 1 [place] mg tablet 43 tablet Medical every day Branch by oral route. hydrOXYzine 2020-0 Yes [id number] 25mg Take 1 Univers 25 mg 1-31 tablet by ity of tablet 00:00: mouth [place] 00 every 6 Medical (six) Branch hours as needed for Itching. gabapentin 2020-0 Yes [id number] 600mg Take 1 Univers 600 mg 1-31 tablet by ity of tablet 00:00: mouth 3 [place] 00 (three) Medical times Branch daily. hydrOXYzine 2020-0 Yes [id number] 25mg Take 1 Univers 25 mg 1-31 tablet by ity of tablet 00:00: mouth [place] 00 every 6 Medical (six) Branch hours as needed for Itching. gabapentin 2020-0 Yes [id number] 600mg Take 1 Univers 600 mg 1-31 tablet by ity of tablet 00:00: mouth 3 [place] 00 (three) Medical times Branch daily. hydrOXYzine 2020-0 Yes [id number] 25mg Take 1 Univers 25 mg 1-31 tablet by ity of tablet 00:00: mouth [place] 00 every 6 Medical (six) Branch hours as needed for Itching. gabapentin 2020-0 Yes [id number] 600mg Take 1 Univers 600 mg 1-31 tablet by ity of tablet 00:00: mouth 3 [place] 00 (three) Medical times Branch daily. methylPREDN 2020-0 Yes [id number] 84mg Take 21 Univers ISolone 1-16 tablets by ity of (MEDROL, 00:00: mouth [place] PURNIMA,) 4 mg 00 SEE-INSTRU Med ical tablets CTIONS. Branch follow package directions methylPREDN 2020-0 Yes [id number] 84mg Take 21 Univers ISolone 1-16 tablets by ity of (MEDROL, 00:00: mouth [place] PURNIMA,) 4 mg 00 SEE-INSTRU Med ical tablets CTIONS. Branch follow package directions methylPREDN 2020-0 Yes [id number] 84mg Take 21 Univers ISolone 1-16 tablets by ity of (MEDROL, 00:00: mouth [place] PURNIMA,) 4 mg 00 SEE-INSTRU Med ical tablets CTIONS. Branch follow package directions lisinopril 2018-05 Yes 10mg Take 10 mg U nivers 10 mg 2-24 by mouth ity of tablet 00:00: daily. [place] [facility] citalopram 2018-05 Yes 10mg Take 10 mg U nivers 10 mg 2-24 by mouth ity of tablet 00:00: daily. [place] [facility] lisinopril 2018-05 Yes 10mg Take 10 mg U nivers 10 mg 2-24 by mouth ity of tablet 00:00: daily. [place] [facility] citalopram 2018-05 Yes 10mg Take 10 mg U nivers 10 mg 2-24 by mouth ity of tablet 00:00: daily. [place] [facility] lisinopril 2018-05 Yes 10mg Take 10 mg U nivers 10 mg 2-24 by mouth ity of tablet 00:00: daily. [place] [facility] citalopram 2018-05 Yes 10mg Take 10 mg U nivers 10 mg 2-24 by mouth ity of tablet 00:00: daily. [place] [facility] naproxen 2017-0 Yes TAKE 1 Univers 500 mg 7-11 TABLET ity of tablet 00:00: WITH FOOD [place] 00 OR MILK Medical NEEDED Branch TWICE A DAY ORALLY 30 DAYS naproxen Yes TAKE 1 Univers 500 mg 7-11 TABLET ity of tablet 00:00: WITH FOOD [place] 00 OR MILK Medical NEEDED Branch TWICE A DAY ORALLY 30 DAYS naproxen Yes TAKE 1 Univers 500 mg 7-11 TABLET ity of tablet 00:00: WITH FOOD [place] 00 OR MILK Medical NEEDED Branch TWICE A DAY ORALLY 30 DAYS LORazepam Yes TAKE 1 Univer s 0.5 mg 7-10 TABLET BY ity of tablet 00:00: MOUTH [place] 00 EVERY 12 Medical HOURS Branch NEEDED FOR ANXIETY LORazepam Yes TAKE 1 Univer s 0.5 mg 7-10 TABLET BY ity of tablet 00:00: MOUTH [place] 00 EVERY 12 Medical HOURS Branch NEEDED FOR ANXIETY LORazepam Yes TAKE 1 Univer s 0.5 mg 7-10 TABLET BY ity of tablet 00:00: MOUTH [place] 00 EVERY 12 Medical HOURS Branch NEEDED FOR ANXIETY terbinafine Yes 250mg Take 250 U nivers HCl 250 mg 6-13 mg by ity of tablet 00:00: mouth [place] 00 daily. Medical Branch terbinafine Yes 250mg Take 250 U nivers HCl 250 mg 6-13 mg by ity of tablet 00:00: mouth [place] 00 daily. Medical Branch terbinafine Yes 250mg Take 250 U nivers HCl 250 mg 6-13 mg by ity of tablet 00:00: mouth [place] 00 daily. Medical Branch Farxiga 5 Farxiga 5 [facility] [place] mg tablet mg tablet mg [...] nasal mcg/actuat spray,suspe spray,suspe ion nasal nsion [place] nsion [place] spray,susp 1 spray 1 spray ension twice a day twice a day [place] 1 by by spray intranasal intranasal twice [...] by oral route. acetaminoph acetaminoph No acetaminop [facility] en 300 en 300 hen 300 Family mg-codeine mg-codeine mg-codeine Practic 30 mg 30 mg 30 mg e tablet TAKE tablet TAKE tablet 1 TABLET BY 1 TABLET BY TAKE 1 MOUTH EVERY MOUTH EVERY TABLET BY 8 HOURS 8 HOURS MOUTH EVERY 8 HOURS amoxicillin amoxicillin No amoxicilli [facility] 500 mg 500 mg n 500 mg Family capsule capsule capsule Practi c TAKE 1 TAKE 1 TAKE 1 e CAPSULE BY CAPSULE BY CAPSULE BY MOUTH EVERY MOUTH EVERY MOUTH 6 HOURS 6 HOURS EVERY 6 HOURS amoxicillin amoxicillin No amoxicilli [facility] 500 500 n 500 Family mg-potassiu mg-potassiu mg-potassi Practic m m um e clavulanate clavulanate clavulanat 125 mg 125 mg e 125 mg tablet tablet tablet BD BD No BD [place] Ultra-Fine Ultra-Fine Ultra-Fine Family Micro Pen Micro Pen Micro Pen Practic Needle 32 Needle 32 Needle 32 e gauge x gauge x gauge x 05/30" 05/30" 05/30" celecoxib celecoxib No celecoxib [facility] 200 mg 200 mg 200 mg Family capsule capsule capsule Practi c TAKE 1 TAKE 1 TAKE 1 e CAPSULE BY CAPSULE BY CAPSULE BY MOUTH EVERY MOUTH EVERY MOUTH DAY DAY EVERY DAY chlorthalid chlorthalid No chlorthali [facility] one 25 mg one 25 mg done 25 mg Family tablet TAKE tablet TAKE tablet Practic 1 TABLET BY 1 TABLET BY TAKE 1 e MOUTH EVERY MOUTH EVERY TABLET BY DAY DAY MOUTH EVERY DAY citalopram citalopram No 1 Q1D citalopram [facility] 10 mg 10 mg 10 mg Family tablet Take tablet Take tablet Practic 1 tablet 1 tablet Take 1 e every day every day tablet by oral by oral every day route. route. by oral route. dexamethaso dexamethaso No dexamethas [facility] ne 6 mg ne 6 mg one 6 mg Famil y tablet tablet tablet Practic e diclofenac diclofenac No diclofenac [facility] 1 % topical 1 % topical 1 % F amily gel APPLY gel APPLY topical Pr actic TO AFFECTED TO AFFECTED gel APPLY e AREA TWICE AREA TWICE TO A DAY A DAY AFFECTED AREA TWICE A DAY diclofenac diclofenac No diclofenac [facility] sodium 75 sodium 75 sodium 75 Family mg mg mg Practic tablet,janeen tablet,jaenen tablet,del e yed release yed release ayed release gabapentin gabapentin No 1capsul BID gabapentin [place] 300 mg 300 mg e(s) 300 mg Family capsule capsule capsule Practi c Take 1 Take 1 Take 1 e capsule capsule capsule twice a day twice a day twice a by oral by oral day by route. route. oral route. gabapentin gabapentin No gabapentin [facility] 800 mg 800 mg 800 mg Family tablet TAKE tablet TAKE tablet Practic 1 TABLET BY 1 TABLET BY TAKE 1 e MOUTH THREE MOUTH THREE TABLET BY TIMES A DAY TIMES A DAY MOUTH THREE TIMES A DAY glimepiride glimepiride No glimepirid [facility] 2 mg tablet 2 mg tablet e [...] GLUCOSE GLUCOSE GLUCOSE levofloxaci levofloxaci No levofloxac [facility] n 500 mg n 500 mg in 500 mg Fa [place] tablet tablet tablet Practic e lisinopril lisinopril No lisinopril [facility] 10 mg 10 mg 10 mg Family tablet tablet tablet Practic e lisinopril lisinopril No lisinopril [facility] 20 mg 20 mg 20 mg Family tablet Take tablet Take tablet Practic 1 tablet 1 tablet Take 1 e every day every day tablet by oral by oral every day route. route. by oral route. meloxicam meloxicam No meloxicam [facility] 7.5 mg 7.5 mg 7.5 mg Family tablet Take tablet Take tablet Practic 1 tablet 1 tablet Take 1 e every day every day tablet by oral by oral every day route. route. by oral route. metformin metformin No metformin [facility] 1,000 mg 1,000 mg 1,000 mg Fam mara tablet Take tablet Take tablet Practic 1 tablet 1 tablet Take 1 e twice a day twice a day tablet by oral by oral twice a route. route. day by oral route. metformin metformin No metformin [facility] 500 mg 500 mg 500 mg Family tablet tablet tablet Practic e methylpredn methylpredn No methylpred [facility] isolone 4 isolone 4 nisolone 4 Family mg tablets mg tablets mg tablets Practic in a dose in a dose in a dose e pack pack pack ondansetron ondansetron No ondansetro [facility] HCl 4 mg HCl 4 mg n HCl 4 mg F amily tablet tablet tablet Practic e OneTouch OneTouch No OneTouch Glenn charo Verio test Verio test Verio test Family strips Use strips Use strips Use Practic to test to test to test e blood blood blood glucose glucose glucose once a day once a day once a day pregabalin pregabalin No pregabalin [place] 75 mg 75 mg 75 mg Family capsule capsule capsule Practi c e Ultra Thin Ultra Thin No Ultra Thin [place] Lancets 31 Lancets 31 Lancets 31 Family gauge Use gauge Use gauge Use Practic to test to test to test e blood blood blood glucose glucose glucose once a day once a day once a day Celexa Celexa Yes Alicia 1 tablet Common [place] Spirit [facility] Acetaminoph Acetaminoph Yes Alicia 1 tablet Common en-Codeine en-Codeine [place] as needed Spirit #3 #3 - CHI [facility] Lisinopril Lisinopril Yes Alicia 1 tablet Common [place] Spirit [facility] Melatonin Melatonin Yes Alicia 1 tablet Common [place] at bedtime Spir it as needed - CHI with food [facility] Gabapentin Gabapentin Yes Alicia 1 tablet Common [place] Spirit [facility] Diclofenac Diclofenac Yes Alicia TAKE 1 Common Sodium Sodium [place] TABLET BY S pirit MOUTH - CHI TWICE A DAY WITH [facility] Metformin Metformin Yes Alicia 1 tablet Common HCl HCl [place] with meals Spir it - CHI [facility] Acetaminoph Acetaminoph No 1{table 6xD Acetaminop en-Codeine en-Codeine t_as_ne hen-Codein #3 300-30 #3 300-30 eded} e #3 MG MG 300-30 MG CeleXA 10 CeleXA 10 No 1{table QD CeleXA 10 MG MG t} MG Lisinopril Lisinopril No 1{table QD Lisinopril 20 MG 20 MG t} 20 MG metFORMIN metFORMIN No 1{table BID metFORMIN HCl 1000 MG HCl 1000 MG t_with_ HCl 1000 meals} MG Gabapentin Gabapentin No 1{table Gabapentin 800 MG 800 MG t} 800 MG Melatonin 5 Melatonin 5 No 1{table QD Melatonin MG MG t_at_be 5 MG dtime_a s_neede d_with_ food} Diclofenac Diclofenac No Diclofenac Sodium 75 Sodium 75 Sodium 75 MG MG MG CeleXA 10 CeleXA 10 No 1{table QD CeleXA 10 MG MG t} MG Vital Signs Vital Name Observation Time Observation Value Comments Source Systolic blood 2021-10-11 20:43:00 121 mm[Hg] Univer sity of pressure [facility] Diastolic blood 2021-10-11 20:43:00 74 mm[Hg] Unive rsity of [facility] Heart rate 2021-10-11 20:43:00 88 [facility] 2021-10-11 20:43:[address] [facility] Body weight 2021-10-11 20:43:[address] [facility] BMI 2021-10-11 20:43:00 26.55 kg/m2 [facility] Oxygen saturation in 2021-10-11 20:43:00 94 /min [facility] blood by [facility] Pulse oximetry Branch Height 2020-02-12 00:00:00 63 [in_i] [facility] Height 2019-12-11 00:00:00 63 [in_i] [facility] BMI (Body Mass 2019-12-11 00:00:00 28.9 kg/m2 [facility] Family Index) Practice Body Weight 2019-12-11 00:00:00 163 [lb_av] [facility] BP Diastolic 2018-11-14 00:00:00 83 mm[Hg] [facility] Height 2018-11-14 00:00:00 64 [in_i] [facility] BMI (Body Mass 2018-11-14 00:00:00 25.5 kg/m2 [facility] 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) Group BP Systolic 2018-11-14 00:00:00 149 mm[Hg] [facility] Body Weight 2018-11-14 00:00:00 148.4 [lb_av] [facility] Systolic blood 2021-05-28 16:00:00 185 mm[Hg] LM [facility] Diastolic blood 2021-05-28 16:00:00 77 mm[Hg] [facility] Heart rate 2021-05-28 16:00:00 94 /min [facility] Body temperature 2021-05-28 16:00:00 36.11 Meghana [facility] Respiratory rate 2021-05-28 16:00:00 18 /min [facility] Oxygen saturation in 2021-05-28 16:00:00 98 /min [facility] Arterial blood by Medical Ce fercho Pulse oximetry Procedures Procedure Date / Time Performing Clinician Source Performed POCT-GLUCOSE METER 2021-05-28 12:13:00 Isi [facility] POCT-GLUCOSE METER 2021-05-28 08:42:00 Isi [facility] HEMOGLOBIN A1C 2021-05-28 08:36:00 Ashwin Lopez [facility] TSH/FREE T4 IF INDICATED 2021-05-28 08:36:00 Ashwin Lopez [facility] VITAMIN B12 AND FOLATE 2021-05-28 08:36:00 Ashwin Lopez [facility] RPR 2021-05-28 08:36:00 Ashwin Lopez [facility] C-REACTIVE PROTEIN 2021-05-28 08:36:00 [facility] BASIC METABOLIC PANEL (7) 2021-05-28 04:52:00 Comfort Edgar [facility] MAGNESIUM 2021-05-28 04:52:00 Comfort Edgar [facility] CBC W/PLT COUNT & AUTO 2021-05-28 04:52:[address] [facility] LIPID PANEL 2021-05-28 04:52:00 [facility] W/[facility]T [facility] & AUTO 2021-05-28 04:52:[address]Com[address] [facility] POCT-GLUCOSE METER 2021-05-28 01:02:00 Comfort Edgar [facility] TYMPANOMETRY 2018-11-14 00:00:00 [facility] App[facility] Cholecyst[facility] Plan of Care Planned Activity Planned Date Details Comments Source Future Scheduled Test 2022-01-25 INFLUENZA VACCINE (#1) [facility] 00:00:00 [code = INFLUENZA Medical Ce nter VACCINE (#1)] Future Scheduled Test 2021-05-27 FALLS RISK SCREENING [facility] 00:00:00 [code = FALLS RISK Medical C enter SCREENING] Future Scheduled Test 2021-05-27 FALLS RISK SCREENING [facility] 00:00:00 [code = FALLS RISK Medical C enter SCREENING] Future Scheduled Test 2021-05-27 FALLS RISK SCREENING [facility] 00:00:00 [code = FALLS RISK Medical C enter SCREENING] Future Scheduled Test 2021-01-25 INFLUENZA VACCINE (#1) [facility] 00:00:00 [code = INFLUENZA Medical Ce nter VACCINE (#1)] Future Scheduled Test 2021-01-25 INFLUENZA VACCINE (#1) [facility] 00:00:00 [code = INFLUENZA Medical Ce nter VACCINE (#1)] Future Scheduled Test 2014 PNEUMOCOCCAL 65+ YRS [facility] 00:00:00 (1 of [address] - [facility] [id number]_Tluehga PCV13) [code = PNEUMOCOCCAL 65+ YRS (1 of 1 - HUPB59_Zgdofxo PCV13)] Future Scheduled Test 2014 PNEUMOCOCCAL 65+ YRS [facility] 00:00:00 (1 of 1 [facility] CGBX78_Mlgznab PCV13) [code = PNEUMOCOCCAL 65+ YRS (1 of 1 - RBKV87_Gdfpucy PCV13)] Future Scheduled Test 2014 PNEUMOCOCCAL 65+ YRS [facility] 00:00:00 (1 - PCV) [code = Medical Ce nter PNEUMOCOCCAL 65+ YRS (1 - PCV)] Future Scheduled Test 2006-08-[address] [facility] 00:00:00 WELLNESS (YEAR 2 or Medical Center FIRST YEAR if no IPPE) [code = MEDICARE ANNUAL WELLNESS (YEAR 2 or FIRST YEAR if no IPPE)] Future Scheduled Test 2006-08-[address] [facility] 00:00:00 WELLNESS (YEAR 2 or Medical Center FIRST YEAR if no IPPE) [code = MEDICARE ANNUAL WELLNESS (YEAR 2 or FIRST YEAR if no IPPE)] Future Scheduled Test 2006-08-[address] [facility] 00:00:00 WELLNESS (YEAR 2 or Medical Center FIRST YEAR if no IPPE) [code = MEDICARE ANNUAL WELLNESS (YEAR 2 or FIRST YEAR if no IPPE)] Future Scheduled Test 1999 SHINGLES VACCINES ([address] [facility] 00:00:00 of 2) [code = SHINGLES Medic al Center VACCINES (1 of 2)] Future Scheduled Test 1999 SHINGLES VACCINES ([address] [facility] 00:00:00 of 2) [code = SHINGLES Medic al Center VACCINES (1 of 2)] Future Scheduled Test 1999 SHINGLES VACCINES ([address] [facility] 00:00:00 of 2) [code = SHINGLES Medic al Center VACCINES (1 of 2)] Future Scheduled Test 1968 DTAP/TDAP/TD VACCINES [facility] 00:00:00 (1 - Tdap) [code = Medical C enter DTAP/TDAP/TD VACCINES (1 - Tdap)] Future Scheduled Test 1968 DTAP/TDAP/TD VACCINES [facility] 00:00:00 (1 - Tdap) [code = Medical C enter DTAP/TDAP/TD VACCINES (1 - Tdap)] Future Scheduled Test 1968 DTAP/TDAP/TD VACCINES [facility] 00:00:00 (1 - Tdap) [code = Medical C enter DTAP/TDAP/TD VACCINES (1 - Tdap)] Future Scheduled Test 1967 HEPATITIS C SCREENING [facility] 00:00:00 [code = HEPATITIS C Medical Center SCREENING] Future Scheduled Test 1967 HEPATITIS C SCREENING [facility] 00:00:00 [code = HEPATITIS C Medical Center SCREENING] Future Scheduled Test 1967 HEPATITIS C SCREENING [facility] 00:00:00 [code = HEPATITIS C Medical Center SCREENING] Future Scheduled Test 1961 COVID-19 VACCINE (1) [facility] 00:00:00 [code = COVID-[address] VACCINE (1)] Future Scheduled Test 1961 COVID-19 VACCINE (1) [facility] 00:00:00 [code = COVID-[address] VACCINE (1)] Future Scheduled Test 1949 COVID-19 VACCINE (#1) [facility] 00:00:00 [code = COVID-[address] VACCINE (#1)] Future Scheduled Test 1949 [facility] malignant neoplasm of Medica l Center breast (procedure) [code = 759943727] Future Scheduled Test 1949 [facility] malignant neoplasm of Medica l Center colon (procedure) [code = 354523940] Future Scheduled Test 1949 DXA SCAN [code = DXA [facility] 00:00:00 SCAN] [facility] Future Scheduled Test 1949 [facility] malignant neoplasm of Medica l Center breast (procedure) [code = 411166093] Future Scheduled Test 1949 [facility] malignant neoplasm of Medica l Center colon (procedure) [code = 424722218] Future Scheduled Test 1949 DXA SCAN [code = DXA [facility] 00:00:00 SCAN] [facility] Future Scheduled Test 1949 [facility] malignant neoplasm of Medica l Center breast (procedure) [code = 024452206] Future Scheduled Test [address] [facility] 00:00:00 (combo) [code = CT Medical C enter Colonography (combo)] Future Scheduled Test 1949 [facility] malignant neoplasm of Medica l Center colon (procedure) [code = 513816801] Future Scheduled Test 1949 [facility]:00 malignant neoplasm of Medica l Center colon (procedure) [code = 950196100] Future Scheduled Test 1949 DXA SCAN [code = DXA [facility] 00:00:00 SCAN] [facility] Future Scheduled Test 1949 [facility] malignant neoplasm of Medica l Center colon (procedure) [code = 877452011] Future Scheduled Test 1949 [facility]00 [facility] colon (procedure) [code = 608172409] Future Scheduled Test 1949 Sigmoidoscopy [code = LM Gallegos 00:00:00 Sigmoidoscopy] Medical Jerzy curry Group Encounters Start End Encounter Admission Attending Care Care Encounter Source Date/Time Date/Time Type Type Clinicians Facility Department ID 2022-02-13 Outpatient Inna, STLMLC STLMLC [id number] Common 09:18:[address] [facility] 2022-02-12 Outpatient STLMLC STLMLC [id number] Common 10:26:01 [facility] 2022-01-26 Outpatient zzzMillende STLMLC STLC [id number] - Common 11:09:[address] [facility] 2021-12-19 Outpatient zzzMillende STLMLC STLMLC [id number] - Common 16:35:[address] [facility] 2021-06-21 Outpatient Millender, STLMLC STLMLC [id number] Common 13:39:[address] [facility] 2021-06-21 Outpatient Millender, STLMLC STLMLC [id number] Common 13:38:[id number] [facility] 2021-06-21 Outpatient Millender, STLMLC STLMLC [id number] Common 11:44:[id number] [facility] 2021-06-21 Outpatient Millender, STLMLC STLMLC [id number] Common 11:40:[address] [facility] 2021-06-21 Outpatient Millender, STLMLC STLMLC [id number] Common 11:23:[address] [facility] 2021-06-21 Outpatient Millender, STLMLC STLMLC [id number] Common 11:23:[address] [facility] 2022-02-27 2022-02-27 (TEL) STLMLC STLMLC [id number] Co mmon 00:00:00 00:00:00 Spirit - [facility] 2022-01-25 2022-01-25 Outpatient R [facility] [id number] Univers 08:30:00 08:30:00 PAYTON [facility] 2021-12-08 2021-12-08 Outpatient Gisselle [facility] [id number] [facility]oted 08:16:00 08:16:00 0715 Medica [facility] 2021-11-22 2021-11-22 CAV Vonja [id number]. [id number]. CLAC [id number] [facility] 14:00:00 15:00:00 Nathan [id number] [id number] [facility] [id number] 2021-11-21 2021-11-21 Outpatient [facility] [id number] Univers 09:20:00 09:20:00 SAM beebe o f [facility] 2021-11-21 2021-11-21 [facility] [id number] Univers 00:00:00 00:00:00 Sam [place] [id number] ity of [place] [id number] [place] camron CHEEMA 059 [facility] 2021-11-15 2021-11-15 Outpatient Gisselle [facility] [id number] Devoted 03:32:00 03:32:00 0622 [facility] 2021-10-11 2021-10-11 Outpatient R [facility] [id number] Univers 16:00:00 16:03:06 [facility] 2021-10-11 2021-10-11 Office [facility] [id number] Univers 16:00:00 16:03:06 Visit [facility] [id number] it y [facility] 4.2.7.2.686 Sameer as CUAUHTEMOC?BLEA [id number] Ks dical KNEY 198 [facility] OFFICE [facility] 2021-10-11 2021-10-11 Outpatient Diane CRANE [facility] [id number] Univers 16:00:00 16:03:06 PAYTON beebe [facility] 2021-09-06 2021-09-06 Outpatient Kishor DMG DMG [id number] Devoted 01:57:00 01:57:00 0413 Medica l Group 2021-05-28 2021-05-28 [facility] ER Ayaka Phan [facility] [id number] 00:42:00 17:08:00 Encounter Tala Comfortteodoro Phillips deann [facility] 2021-05-28 2021-05-28 Outpatient ER OSIEL ABEL Neurology [id number] SLE 00:42:00 17:08:00 [facility] 2021-05-28 2021-05-28 [facility] Ayaka Phan [facility] [id number] 00:42:00 17:08:00 Encounter TalaComfort Roxie Abel, [facility] 2021-05-28 2021-05-[address] [facility] [id number] [facility] 00:[facility] 00:[facility]:00 [facility] 2021-05-28 2021-05-[address] [facility] [id number] [facility] 00:[facility]00 00:00:00 [facility] 2021-03-22 2021-03-22 Outpatient Diane CRANE [facility] [id number] Univers 13:45:00 13:45:00 PAYTONSAGAR beebe [facility] 2021-03-20 2021-03-20 [facility] [id number] Univers 15:05:00 23:59:00 Encounter [facility] [id number] itteodoro carr [place] 4.2.7.2.686 Sameer as Cuauhtemoc?Blea [id number] Ks camron [facility] [address] [facility] 2021-03-20 2021-03-20 Office [facility] [id number] Univers 14:51:53 16:00:20 Visit [facility] [id number] Estephaniaton 4.2.7.2.686 Sameer as Cuauhtemoc?Blea [id number] [address] Medical Office [facility] 2021-03-20 2021-03-20 Outpatient [facility] [id number] Univers 14:45:00 16:00:20 [facility] 2021-03-20 2021-03-20 Outpatient [facility] [id number] Univers 14:45:00 14:45:00 [facility] 2020-12-27 2020-12-27 Outpatient CURRY_[place]G DM [id number] Devoted 01:40:00 01:40:00 0803 Medica l Group 2020-07-01 2020-07-01 Outpatient Fozia-Mbayo VFP [facility] [address] 05:22:00 05:22:00 _A_AH 21843 Family Practic e 2020-06-23 2020-06-23 Outpatient Fozia-Mbayo VFP VFP [id number] 02:12:00 02:12:00 _A_AH 48182 Family Practic e 2020-06-22 2020-06-22 Outpatient Fozia-Mbayo VFP P [id number] 10:49:00 10:49:00 _A_AH 16931 Family Practic e 2020-06-21 2020-06-21 Prerna P [place] - [phone] 00:00:00 00:00:00 Fozia-Mbay [facility] 712[address] Fam mara jennings, STORE ADMINISTRATIVE ASSISTANT: Medical - Practi c [address] [email or web address]_V@_ e [facility], [address] [address], [place] [address] , Ph. 2020-04-13 2020-04-13 [place] [id number] [place] 02:32:00 02:32:00 1118 da Medical Group 2020-03-01 2020-03-01 Outpatient Fozia-Mbayo VFP VFP [id number] [facility] 04:05:00 04:05:00 _A_AH 47476 Family Practic e 2020-02-29 2020-02-29 Outpatient Fozia-Mbayo VFP VFP [id number] [facility] 01:50:00 01:50:00 _A_AH 32218 Family Practic e 2020-02-22 2020-02-22 Outpatient Fozia-Mbayo VFP VFP [id number] [facility] 08:48:00 08:48:00 _A_AH 45096 Family Practic e 2020-02-12 2020-02-12 Prerna VFP [place] - [id number] [facility] 00:00:00 00:00:00 [facility] [address] Fam mara jennings STORE ADMINISTRATIVE ASSISTANT: Medical - Pracmargoth lee [address] VM_[email or web address]_ e [facility], [address] [address], [place] [address] , Ph. 2020-02-03 2020-02-03 Outpatient Brazandrea Garciast [id number] Common 11:00:00 11:00:00 [facility] 2020-01-11 2020-01-11 Outpatient Fozia-Mbayo VFP VFP [id number] [facility] 06:55:00 06:55:00 _A_AH 00849 Family Practic e 2020-01-06 2020-01-06 Outpatient Fozia-Mbayo VFP VFP [id number] [facility] 07:22:00 07:22:00 _A_AH 06341 Family Practic e 2019-12-31 2019-12-31 Outpatient COH COH PDPFEJF PWQ COH 00:00:00 00:00:00 [id number] 2019-12-30 2019-12-30 Outpatient Fozia-Mbayo VFP VFP [id number] [facility] 07:14:00 07:14:00 _A_AH 67806 Family Practic e 2019-12-28 2019-12-28 RORY Knapp [id number] 00:00:00 00:00:00 [facility] [id number] Surgical 4.2.7.2.686 Specialti [id number] es 198 [place] 2019-12-28 2019-12-28 Aleyda Pate [facility] [id number] 00:00:00 00:00:00 Rohan [facility] [id number] Surgical 4.2.7.2.686 Specialti [id number] es 198 [place] 2019-12-25 2019-12-25 Outpatient Fozia-Mbayo VFP VFP [id number] [facility] 01:52:00 01:52:00 _A_AH 60454 Family Practic e 2019-12-23 2019-12-23 Outpatient [facility] [id number] Common 10:54:00 10:54:00 [facility] Medical [facility] 2019-12-17 2019-12-17 Outpatient Fozia-Mbayo VFP VFP [id number] [facility] 10:07:00 10:07:00 _A_AH 05311 Family Practic e 2019-12-11 2019-12-11 Prerna P [place] - [id number] [facility] 00:00:00 00:00:00 Fozia-Mbay [facility] 14667 Venu jennings STORE ADMINISTRATIVE ASSISTANT: Medical - Practi jesus [address] [email or web address], [address] [address], [place] [address] , Ph. 2019-12-10 2019-12-10 Office Rosa Maria [facility] [id number] 15:07:12 15:45:01 Visit [facility] [id number] Surgical 4.2.7.2.686 Specialti [id number] es 198 [place] 2019-12-10 2019-12-10 Outpatient Diane CRANE [facility] [id number] [facility] 15:00:00 15:00:00 PAYTON beebe [facility] 2019-12-03 2019-12-03 Outpatient [facility] [id number] Common 14:42:00 14:42:00 [facility] 2019-10-27 2019-10-27 Outpatient Dieter [facility] 30 [id number] Common 16:30:00 16:30:00 [facility] 2019-10-20 2019-10-20 Outpatient Dieter [facility] 30 [id number] Common 22:55:00 22:55:00 t [facility] [address] [facility] 2019-10-20 2019-10-20 Outpatient Dieter [place] [id number] Common 09:40:00 09:40:00 t [facility] [address] [facility] 2019-09-22 2019-09-22 Outpatient Diane PATE [facility] [id number] Univers 10:00:00 10:00:00 [facility] 2019-08-17 2019-08-17 Outpatient Diane PATE [facility] [id number] Univers 13:45:00 13:45:00 [facility] 2019-07-23 2019-07-23 Outpatient FoziaMindi [facility] [id number] [facility] 01:59:00 01:59:00 _A_ 58381 Family Practic e 2019-07-16 2019-07-16 Outpatient Diane PATE [facility] [id number] Univers 08:45:00 08:56:09 [facility] 2019-06-26 2019-06-26 Outpatient KAMALJIT RODAS [facility] [id number] Univers 11:03:09 23:59:00 [facility] 2019-04-28 2019-04-28 Outpatient Diane GALVAN [facility] [id number] Univers 11:51:08 23:59:00 ANNITA [facility] 2018-11-14 2018-11-14 Declan [facility] [place] [place] - [id number] [place] 00:00:00 00:00:00 MD Tonya: [address] Group [place], [place] [address], Otolaryngol [place], [facility] [place] [address] , Ph. Results Test Description Test Time Test Comments Results Result Comments Source RPR 2021-05-29 11:37:18 Test Item Value Reference Range Interpretation Comme nts RPR (test code = 66604-3) Nonreactive Nonreactive Lab Interpretation (test code = 40124-0) [facility] 11:37:18 Test Item Value Reference Range Interpretation Comments RPR (test code = 18732-7) Nonreactive Nonreactive Lab Interpretation (test code = Normal 24086-3) [facility] 11:37:18 Test Item Value Reference Range Interpretation Comments RPR (test code = 29220-7) Nonreactive Nonreactive Lab Interpretation (test code = Normal 54844-4) [facility] 11:37:18 Test Item Value Reference Range Interpretation Comments RPR SCREEN (BEAKER) (test code = Nonreactive Nonreactive 420) Hemoglobin [id number] 13:48:33 Test Item Value Reference Range Interpretation Comments Hemoglobin A1C (test code = 4548-4) 8.0 % 4.3-6.1 H Lab Interpretation (test code = Abnormal 58071-8) [facility] [id number] 13:48:33 Test Item Value Reference Range Interpretation Comments Hemoglobin A1C (test code = 4548-4) 8.0 % 4.3-6.1 H Lab Interpretation (test code = Abnormal 67216-2) [facility] [id number] 13:48:33 Test Item Value Reference Range Interpretation Comments Hemoglobin A1C (test code = 4548-4) 8.0 % 4.3-6.1 H Lab Interpretation (test code = Abnormal 88110-8) [facility] [id number] 13:48:33 Test Item Value Reference Range Interpretation Comments HEMOGLOBIN A1C (BEAKER) (test code = 8.0 % 4.3-6.1 H 368) POC-Glucose [id number] 12:30:39 Test Item Value Reference Range Interpretation Comments POC-Glucose Meter (test 154 mg/dL 70-110 H : TE STED AT [facility] code = 6716) 3394 [facility], 770 30: 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/Techni tenisha ID = [id number] for DOE, IZAIAH Lab Interpretation (test Abnormal code = 91151-9) [facility]ucose [id number] 12:30:39 Test Item Value Reference Range Interpretation Comments POC-Glucose Meter (test 154 mg/dL 70-110 H : TE STED AT [facility] code = 1538) 6720 [facility], 770 30: 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/Techni tenisha ID = [id number] for DOE, IZAIAH Lab Interpretation (test Abnormal code = 14811-3) [facility] [id number] 12:30:39 Test Item Value Reference Range Interpretation Comments POC-Glucose Meter (test 154 mg/dL 70-110 H : TE STED AT [facility] code = 1538) 6720 [facility], 770 30: 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/Techni tenisha ID = [id number] for DOE, IZAIAH Lab Interpretation (test Abnormal code = 04234-2) [facility] [id number] 12:30:39 Test Item Value Reference Range Interpretation Comments POC-GLUCOSE METER 154 mg/dL 70-110 H : TESTED A T [facility] 6720 (BEAKER) (test code = FUNMI R [facility], 1538) 38609: 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/Techni tenisha ID = [id number] for SHEA MCGEEL TSH/Free T4 If [id number] 09:53:22 Test Item Value Reference Range Interpretation Comments TSH (test code = 2.157 See_Comment [Automated 19086-2) message] The system which generated this result transmit queenie reference range : 0.350 - 4.940 uIU/mL. The reference range was not used to interpret this result as normal/abnormal . JING (test code = JING) 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 ID - PIAYA L Lab Interpretation Normal (test code = 74439-2) [facility] and [id number] 09:53:22 Test Item Value Reference Range Interpretation Comments Vitamin B12 (test 300 pg/mL 213-816 code = 2132-9) Folate (test code = 17.40 ng/mL See_Comment [Automa queenie 2284-8) message] The system which generated this result transmit queenie reference range : >=7.00. The reference range was not used to interpret this result as normal/abnormal . JING (test code = JING) 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 ID - PIAYA L Lab Interpretation Normal (test code = 70100-9) [facility]Free T4 If [id number] 09:53:22 Test Item Value Reference Range Interpretation Comments TSH (test code = 2.157 See_Comment [Automated 78353-2) message] The system which generated this result transmit queenie reference range : 0.350 - 4.940 uIU/mL. The reference range was not used to interpret this result as normal/abnormal . JING (test code = JING) 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 ID - PIAYA L Lab Interpretation Normal (test code = 74125-4) [facility] [id number] 09:53:22 Test Item Value Reference Range Interpretation Comments Vitamin B12 (test 300 pg/mL 213-816 code = 2132-9) Folate (test code = 17.40 ng/mL See_Comment [Automa queenie 2284-8) message] The system which generated this result transmit queenie reference range : >=7.00. The reference range was not used to interpret this result as normal/abnormal . JING (test code = JING) 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 ID - PIAYA L Lab Interpretation Normal (test code = 59999-5) [facility] T4 If [id number] 09:53:22 Test Item Value Reference Range Interpretation Comments TSH (test code = 2.157 See_Comment [Automated 52159-5) message] The system which generated this result transmit queenie reference range : 0.350 - 4.940 uIU/mL. The reference range was not used to interpret this result as normal/abnormal . JING (test code = JING) 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 ID - PIAYA L Lab Interpretation Normal (test code = 84707-8) [facility] and [id number] 09:53:22 Test Item Value Reference Range Interpretation Comments Vitamin B12 (test 300 pg/mL 213-816 code = 2132-9) Folate (test code = 17.40 ng/mL See_Comment [Automa queenie 2284-8) message] The system which generated this result transmit queenie reference range : >=7.00. The reference range was not used to interpret this result as normal/abnormal . JING (test code = JING) 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 ID - RHETTJOSE L Lab Interpretation Normal (test code = 90684-1) [facility] T4 IF [id number] 09:53:22 Test Item Value Reference Range Interpretation Comments THYROID STIMULATING HORMONE 2.157 uIU/mL 0.350-4.940 (BEAKER) (test code = 772) 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 ID - MARTINA LVITAMIN B12 AND [id number] 09:53:22 Test Item Value Reference Range Interpretation Comments VITAMIN B12 300 pg/mL 213-816 (BEAKER) (test code = 774) FOLATE (BEAKER) 17.40 ng/mL See_Comment [Automated message] (test code = 362) The system which generated this result transmitted ref erence range: >=7.00. The reference range was not used to interpr et this result as normal/abnormal . 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 ID - MARTINA LC-Reactive [id number] 09:18:38 Test Item Value Reference Range Interpretation Comments CRP (test code = 676) 0.41 mg/dL 0.00-0.50 JING (test code = JING) 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 ID - RHETTJOSE L Lab Interpretation (test Normal code = 48056-2) [facility] [id number] 09:18:38 Test Item Value Reference Range Interpretation Comments CRP (test code = 676) 0.41 mg/dL 0.00-0.50 JING (test code = JING) 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 ID - RHETTJOSE L Lab Interpretation (test Normal code = 85905-4) [facility] [id number] 09:18:38 Test Item Value Reference Range Interpretation Comments CRP (test code = 676) 0.41 mg/dL 0.00-0.50 JING (test code = JING) 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 ID - RHETTJOSE L Lab Interpretation (test Normal code = 79167-4) [facility] [id number] 09:18:38 Test Item Value Reference Range Interpretation Comments C-REACTIVE PROTEIN (BEAKER) (test 0.41 mg/dL 0.00-0.50 code = 676) 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 ID [place] MACK LPOCT-GLUCOSE [id number] 08:53:38 Test Item Value Reference Range Interpretation Comments POC-GLUCOSE METER 123 mg/dL 70-110 H : Notified RN/MD: (YUNIEL) (test code = TESTED AT [facility] 6415 [id number]) [facility] [address]: 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/Techni tenisha ID = [id number] for Breanna RUTH Lipid [id number] 08:18:29 Test Item Value Reference Range Interpretation Comments Triglycerides (test 111 mg/dL code = 2571-8) Cholesterol (test code 114 mg/dL = 2093-3) HDL (test code = 33 mg/dL 2085-01) LDL Calculated (test 59 mg/dL code = 07442-6) JING (test code = JING) Triglyceride Reference Range: Low Risk <150 Borderline 150-199 High Risk 200-499 Very High Risk >=500 Cholesterol Reference Range: Low Risk <200 Borderline 200-239 High Risk >240 HDL Cholesterol Reference Range: Low Risk >=60 High Risk <40 LDL Cholesterol Reference Range: Optimal <100 Near Optimal 100-129 Borderline 130-159 High 160-189 Very High >=190 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 ID - MARTINA Pena [facility] [id number] 08:18:29 Test Item Value Reference Range Interpretation Comments Triglycerides (test 111 mg/dL code = 2571-8) Cholesterol (test code 114 mg/dL = 3-3) HDL (test code = 33 mg/dL 2085-01) LDL Calculated (test 59 mg/dL code = 51898-4) JING (test code = JING) Triglyceride Reference Range: Low Risk <150 Borderline 150-199 High Risk 200-499 Very High Risk >=500 Cholesterol Reference Range: Low Risk <200 Borderline 200-239 High Risk >240 HDL Cholesterol Reference Range: Low Risk >=60 High Risk <40 LDL Cholesterol Reference Range: Optimal <100 Near Optimal 100-129 Borderline 130-159 High 160-189 Very High >=190 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 ID - PIJOSE L [facility] [id number] 08:18:29 Test Item Value Reference Range Interpretation Comments Triglycerides (test 111 mg/dL code = 2571-8) Cholesterol (test code 114 mg/dL = 2093-3) HDL (test code = 33 mg/dL 9) LDL Calculated (test 59 mg/dL code = 99717-5) JING (test code = JING) Triglyceride Reference Range: Low Risk <150 Borderline 150-199 High Risk 200-499 Very High Risk >=500 Cholesterol Reference Range: Low Risk <200 Borderline 200-239 High Risk >240 HDL Cholesterol Reference Range: Low Risk >=60 High Risk <40 LDL Cholesterol Reference Range: Optimal <100 Near Optimal 100-129 Borderline 130-159 High 160-189 Very High >=190 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 KINA Pena [facility]aLIPID [id number] 08:18:29 Test Item Value Reference Range Interpretation Comments TRIGLYCERIDES (BEAKER) (test code = 111 mg/dL 540) CHOLESTEROL (BEAKER) (test code = 114 mg/dL 631) HDL CHOLESTEROL (BEAKER) (test code 33 mg/dL = 976) LDL CHOLESTEROL CALCULATED (BEAKER) 59 mg/dL (test code = 633) Triglyceride Reference Range: Low Risk <150 Borderline 150-199 High Risk 200- 499 Very High Risk >=500Cholesterol Reference Range: Low Risk <200 Borderline 200-239 High Risk >240HDL Cholesterol Reference Range: Low Risk >=60 High Risk <40LDL Cholesterol Reference Range: Optimal <100 Near Optimal 100-129 Borderline 130-159 High 160-189 Very High >=190 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 IKNA MAINasic metabolic [id number] 07:59:03 Test Item Value Reference Range Interpretation Comments Sodium (test code = 137 meq/L 535-085 6040-2) Potassium (test code 3.8 meq/L 3.5-5.1 = 2823-3) Chloride (test code = 106 meq/L 98-107 5-0) CO2 (test code = 22 meq/L 22-29 2027-9) BUN (test code = 19 mg/dL 7-21 3094-0) Creatinine (test code 1.04 mg/dL 0.57-1.25 = 2160-0) Glucose (test code = 106 mg/dL 70-105 H 2345-7) Calcium (test code = 8.8 mg/dL 8.4-10.2 30759-2) EGFR (test code = 52 mL/min/1.73 sq [place] [address]-3) NOT ACCURATE CREATININE CLEARANCE IN PREDICTING GLOMERULAR FILTRATION RATE . ESTIMATED GFR I S NOT APPLICABLE FOR DIALYSIS PATIENTS. JING (test code = JING) 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 ID - MARTINA Grimm ID - PIAYA L Lab Interpretation Abnormal (test code = 35974-2) [facility] metabolic [id number] 07:59:03 Test Item Value Reference Range Interpretation Comments Sodium (test code = 137 meq/L 623-025 4349-2) Potassium (test code 3.8 meq/L 3.5-5.1 = 2823-3) Chloride (test code = 106 meq/L 98-107 2075-0) CO2 (test code = 22 meq/L -2027-) BUN (test code = 19 mg/dL - 3094-0) Creatinine (test code 1.04 mg/dL 0.57-1.25 = 2160-0) Glucose (test code = 106 mg/dL 70-105 H 2345-7) Calcium (test code = 8.8 mg/dL 8.4-10.2 95539-7) EGFR (test code = 52 mL/min/1.73 sq [place] [address]-3) NOT ACCURATE CREATININE CLEARANCE IN PREDICTING GLOMERULAR FILTRATION RATE . ESTIMATED GFR I S NOT APPLICABLE FOR DIALYSIS PATIENTS. JING (test code = JING) 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 ID - MARTINA Grimm ID - PIAYA L Lab Interpretation Abnormal (test code = 47703-6) [facility] metabolic [id number] 07:59:03 Test Item Value Reference Range Interpretation Comments Sodium (test code = 137 meq/L 846-350 3621-2) Potassium (test code 3.8 meq/L 3.5-5.1 = 2823-3) Chloride (test code = 106 meq/L 98-107 2075-0) CO2 (test code = 22 meq/L -2028-01) BUN (test code = 19 mg/dL - 3094-0) Creatinine (test code 1.04 mg/dL 0.57-1.25 = 2160-0) Glucose (test code = 106 mg/dL 70-105 H 2345-7) Calcium (test code = 8.8 mg/dL 8.4-10.2 98911-4) EGFR (test code = 52 mL/min/1.73 [place] [address]-2) NOT ACCURATE CREATININE CLEARANCE IN PREDICTING GLOMERULAR FILTRATION RATE . ESTIMATED GFR I S NOT APPLICABLE FOR DIALYSIS PATIENTS. JING (test code = JING) 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 KINA Grimm ID - MARTINA L Lab Interpretation Abnormal (test code = 29925-8) [facility] METABOLIC [id number] 07:59:03 Test Item Value Reference Range Interpretation Comments SODIUM (BEAKER) 137 meq/L 136-145 (test code = 381) POTASSIUM (BEAKER) 3.8 meq/L 3.5-5.1 (test code = 379) CHLORIDE (BEAKER) 106 meq/L 98-107 (test code = 382) CO2 (BEAKER) (test 22 meq/L 22-29 code = 355) BLOOD UREA NITROGEN 19 mg/dL 7-21 (BEAKER) (test code = 354) CREATININE (BEAKER) 1.04 mg/dL 0.57-1.25 (test code = 358) GLUCOSE RANDOM 106 mg/dL 70-105 H (BEAKER) (test code = 652) CALCIUM (BEAKER) 8.8 mg/dL 8.4-10.2 (test code = 697) EGFR (BEAKER) (test 52 mL/min/1.73 [facility] [place] GFR IS code = 1092) sq m NOT ACCURATE CREATININE CLEARANCE IN PREDICTING GLOMERULAR FILTRATION RATE . ESTIMATED GFR I S NOT APPLICABLE FOR DIALYSIS PATIEN TS. 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 KINA MACK [id number] 06:48:32 Test Item Value Reference Range Interpretation Comments Magnesium (test code = 1.7 mg/dL 1.6-2.6 62863-2) JING (test code = JING) 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 ID - MARTINA L Lab Interpretation (test Normal code = 90697-2) [facility]esium[facility] 06:48:32 Test Item Value Reference Range Interpretation Comments Magnesium (test code = 1.7 mg/dL 1.6-2.6 63655-9) JING (test code = JING) 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 ID - MARTINA L Lab Interpretation (test Normal code = 53090-8) [facility] 06:48:32 Test Item Value Reference Range Interpretation Comments Magnesium (test code = 1.7 mg/dL 1.6-2.6 95096-7) JING (test code = JING) 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 ID - MARTINA Pena Lab Interpretation (test Normal code = 35692-0) [facility]UM[facility] 06:48:32 Test Item Value Reference Range Interpretation Comments MAGNESIUM (BEAKER) (test code = 1.7 mg/dL 1.6-2.6 627) 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 ID - MARTINA LCBC with platelet count + automated [id number] 06:04:12 Test Item Value Reference Range Interpretation Comments WBC (test code = 6690-2) 7.6 See_Comment [A utomated message] The system [employer] generated this result transmitted ref erence range: 3.5 - 10 .5 K/L. The refe rence range was not u sed to interpret this result as normal/abnor mal. RBC (test code = 789-8) 3.49 See_Comment L [Au tomated message] The system [employer] generated this result transmitted ref erence range: 3.93 - 5 .22 M/L. The refe rence range was not u sed to interpret this result as normal/abnor mal. MCHC (test code = 786-4) 32.7 See_Comment L [A utomated message] The system [employer] generated this result transmitted ref erence range: 32.2 - 3 5.5 GM/DL. The refe rence range was not u sed to interpret this result as normal/abnor mal. Hematocrit (test code = 30.0 % 34.1-44.9 L 4544-3) MCV (test code = 787-2) 86.0 fL 79.4-94.8 MCH (test code = 785-6) 28.1 pg 25.6-32.2 RDW (test code = 788-0) 13.2 % 11.7-14.4 Platelets (test code = 193 See_Comment [Aut omated message] 777-3) The system [employer] generated this result transmitted ref erence range: 150 - 45 0 K/CU MM. The referen ce range was not u sed to interpret this result as normal/abnor mal. MPV (test code = 12.3 fL 9.4-12.3 14141-9) nRBC (test code = 413) 0 See_Comment [Aut omated message] The system [employer] generated this result transmitted ref erence range: 0 - 0 /1 00 WBC. The refere nce range was not u sed to interpret this result as normal/abnor mal. % Neutros (test code = 51 % 429) % Lymphs (test code = 39 % 430) % Monos (test code = 7 % 431) % Eos (test code = 432) 2 % % Baso (test code = 437) 1 % # Neutros (test code = 3.83 See_Comment [Aut omated message] 670) The system [employer] generated this result transmitted ref erence range: 1.56 - 6 .13 K/L. The refe rence range was not u sed to interpret this result as normal/abnor mal. # Lymphs (test code = 2.95 See_Comment [Auto mated message] 414) The system [employer] generated this result transmitted ref erence range: 1.18 - 3 .74 K/L. The refe rence range was not u sed to interpret this result as normal/abnor mal. # Monos (test code = 0.56 See_Comment H [Autom ated message] 415) The system [employer] generated this result transmitted ref erence range: 0.24 - 0 .36 K/L. The refe rence range was not u sed to interpret this result as normal/abnor mal. # Eos (test code = 416) 0.14 See_Comment [Au tomated message] The system [employer] generated this result transmitted ref erence range: 0.04 - 0 .36 K/L. The refe rence range was not u sed to interpret this result as normal/abnor mal. # Baso (test code = 417) 0.06 See_Comment [A utomated message] The system [employer] generated this result transmitted ref erence range: 0.01 - 0 .08 K/L. The refe rence range was not u sed to interpret this result as normal/abnor mal. Immature 0 % 0-1 Granulocytes-Relative (test code = 2801) Lab Interpretation (test Abnormal code = 42914-7) [facility] + automated [id number] 06:04:12 Test Item Value Reference Range Interpretation Comments WBC (test code = 6690-2) 7.6 See_Comment [A utomated message] The system [employer] generated this result transmitted ref erence range: 3.5 - 10 .5 K/L. The refe rence range was not u sed to interpret this result as normal/abnor mal. RBC (test code = 789-8) 3.49 See_Comment L [Au tomated message] The system [employer] generated this result transmitted ref erence range: 3.93 - 5 .22 M/L. The refe rence range was not u sed to interpret this result as normal/abnor mal. MCHC (test code = 786-4) 32.7 See_Comment L [A utomated message] The system [employer] generated this result transmitted ref erence range: 32.2 - 3 5.5 GM/DL. The refe rence range was not u sed to interpret this result as normal/abnor mal. Hematocrit (test code = 30.0 % 34.1-44.9 L 4544-3) MCV (test code = 787-2) 86.0 fL 79.4-94.8 MCH (test code = 785-6) 28.1 pg 25.6-32.2 RDW (test code = 788-0) 13.2 % 11.7-14.4 Platelets (test code = 193 See_Comment [Aut omated message] 777-3) The system [employer] generated this result transmitted ref erence range: 150 - 45 0 K/CU MM. The referen ce range was not u sed to interpret this result as normal/abnor mal. MPV (test code = 12.3 fL 9.4-12.3 93615-9) nRBC (test code = 413) 0 See_Comment [Aut omated message] The system [employer] generated this result transmitted ref erence range: 0 - 0 /1 00 WBC. The refere nce range was not u sed to interpret this result as normal/abnor mal. % Neutros (test code = 51 % 429) % Lymphs (test code = 39 % 430) % Monos (test code = 7 % 431) % Eos (test code = 432) 2 % % Baso (test code = 437) 1 % # Neutros (test code = 3.83 See_Comment [Aut omated message] 670) The system [employer] generated this result transmitted ref erence range: 1.56 - 6 .13 K/L. The refe rence range was not u sed to interpret this result as normal/abnor mal. # Lymphs (test code = 2.95 See_Comment [Auto mated message] 414) The system [employer] generated this result transmitted ref erence range: 1.18 - 3 .74 K/L. The refe rence range was not u sed to interpret this result as normal/abnor mal. # Monos (test code = 0.56 See_Comment H [Autom ated message] 415) The system [employer] generated this result transmitted ref erence range: 0.24 - 0 .36 K/L. The refe rence range was not u sed to interpret this result as normal/abnor mal. # Eos (test code = 416) 0.14 See_Comment [Au tomated message] The system [employer] generated this result transmitted ref erence range: 0.04 - 0 .36 K/L. The refe rence range was not u sed to interpret this result as normal/abnor mal. # Baso (test code = 417) 0.06 See_Comment [A utomated message] The system [employer] generated this result transmitted ref erence range: 0.01 - 0 .08 K/L. The refe rence range was not u sed to interpret this result as normal/abnor mal. Immature 0 % 0-1 Granulocytes-Relative (test code = 2801) Lab Interpretation (test Abnormal code = 02689-6) [facility] with platelet count + automated [id number] 06:04:12 Test Item Value Reference Range Interpretation Comments WBC (test code = 6690-2) 7.6 See_Comment [A utomated message] The system [employer] generated this result transmitted ref erence range: 3.5 - 10 .5 K/L. The refe rence range was not u sed to interpret this result as normal/abnor mal. RBC (test code = 789-8) 3.49 See_Comment L [Au tomated message] The system [employer] generated this result transmitted ref erence range: 3.93 - 5 .22 M/L. The refe rence range was not u sed to interpret this result as normal/abnor mal. MCHC (test code = 786-4) 32.7 See_Comment L [A utomated message] The system [employer] generated this result transmitted ref erence range: 32.2 - 3 5.5 GM/DL. The refe rence range was not u sed to interpret this result as normal/abnor mal. Hematocrit (test code = 30.0 % 34.1-44.9 L 4544-3) MCV (test code = 787-2) 86.0 fL 79.4-94.8 MCH (test code = 785-6) 28.1 pg 25.6-32.2 RDW (test code = 788-0) 13.2 % 11.7-14.4 Platelets (test code = 193 See_Comment [Aut omated message] 777-3) The system [employer] generated this result transmitted ref erence range: 150 - 45 0 K/CU MM. The referen ce range was not u sed to interpret this result as normal/abnor mal. MPV (test code = 12.3 fL 9.4-12.3 99371-5) nRBC (test code = 413) 0 See_Comment [Aut omated message] The system [employer] generated this result transmitted ref erence range: 0 - 0 /1 00 WBC. The refere nce range was not u sed to interpret this result as normal/abnor mal. % Neutros (test code = 51 % 429) % Lymphs (test code = 39 % 430) % Monos (test code = 7 % 431) % Eos (test code = 432) 2 % % Baso (test code = 437) 1 % # Neutros (test code = 3.83 See_Comment [Aut omated message] 670) The system [employer] generated this result transmitted ref erence range: 1.56 - 6 .13 K/L. The refe rence range was not u sed to interpret this result as normal/abnor mal. # Lymphs (test code = 2.95 See_Comment [Auto mated message] 414) The system [employer] generated this result transmitted ref erence range: 1.18 - 3 .74 K/L. The refe rence range was not u sed to interpret this result as normal/abnor mal. # Monos (test code = 0.56 See_Comment H [Autom ated message] 415) The system [employer] generated this result transmitted ref erence range: 0.24 - 0 .36 K/L. The refe rence range was not u sed to interpret this result as normal/abnor mal. # Eos (test code = 416) 0.14 See_Comment [Au tomated message] The system [employer] generated this result transmitted ref erence range: 0.04 - 0 .36 K/L. The refe rence range was not u sed to interpret this result as normal/abnor mal. # Baso (test code = 417) 0.06 See_Comment [A utomated message] The system [employer] generated this result transmitted ref erence range: 0.01 - 0 .08 K/L. The refe rence range was not u sed to interpret this result as normal/abnor mal. Immature 0 % 0-1 Granulocytes-Relative (test code = 2801) Lab Interpretation (test Abnormal code = 01774-1) [facility] W/PLT COUNT & AUTO [id number] 06:04:12 Test Item Value Reference Range Interpretation Comments WHITE BLOOD CELL COUNT (BEAKER) 7.6 K/ L 3.5-10.5 (test code = 775) RED BLOOD CELL COUNT (BEAKER) 3.49 M/ L 3.93-5.22 L (test code = 761) HEMOGLOBIN (BEAKER) (test code = 9.8 GM/DL 11.2-15.7 L 410) HEMATOCRIT (BEAKER) (test code = 30.0 % 34.1-44.9 L 411) MEAN CORPUSCULAR VOLUME (BEAKER) 86.0 fL 79.4-94.8 (test code = 753) MEAN CORPUSCULAR HEMOGLOBIN 28.1 pg 25.6-32.2 (BEAKER) (test code = 751) MEAN CORPUSCULAR HEMOGLOBIN CONC 32.7 GM/DL 32.2-35.5 (BEAKER) (test code = 752) RED CELL DISTRIBUTION WIDTH 13.2 % 11.7-14.4 (BEAKER) (test code = 412) PLATELET COUNT (BEAKER) (test 193 K/CU MM 150-450 code = 756) MEAN PLATELET VOLUME (BEAKER) 12.3 fL 9.4-12.3 (test code = 754) NUCLEATED RED BLOOD CELLS 0 /100 WBC 0-0 (BEAKER) (test code = 413) NEUTROPHILS RELATIVE PERCENT 51 % (BEAKER) (test code = 429) LYMPHOCYTES RELATIVE PERCENT 39 % (BEAKER) (test code = 430) MONOCYTES RELATIVE PERCENT 7 % (BEAKER) (test code = 431) EOSINOPHILS RELATIVE PERCENT 2 % (BEAKER) (test code = 432) BASOPHILS RELATIVE PERCENT 1 % (BEAKER) (test code = 437) NEUTROPHILS ABSOLUTE COUNT 3.83 K/ L 1.56-6.13 (BEAKER) (test code = 670) LYMPHOCYTES ABSOLUTE COUNT 2.95 K/ L 1.18-3.74 (BEAKER) (test code = 414) MONOCYTES ABSOLUTE COUNT (BEAKER) 0.56 K/ L 0.24-0.36 H (test code = 415) EOSINOPHILS ABSOLUTE COUNT 0.14 K/ L 0.04-0.36 (BEAKER) (test code = 416) BASOPHILS ABSOLUTE COUNT (BEAKER) 0.06 K/ L 0.01-0.08 (test code = 417) IMMATURE GRANULOCYTES-RELATIVE 0 % 0-1 PERCENT (BEAKER) (test code = 2801) POCT-GLUCOSE [id number] 01:14:17 Test Item Value Reference Range Interpretation Comments POC-GLUCOSE METER 107 mg/dL 70-110 : TESTED A T [facility] 6720 (BEAKER) (test code = [place], 1538) [address]: 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/Techni tenisha ID = [id number] for Sandie Anderson [id number] 10:54:48 Test Item Value Reference Range Interpretation Comments Right (test code = Type C Peak is on Left Right) Left (test code = Left) Type B Curve Flat [facility]
[2022-03-18 15:53] LABS: Urine Blood Negative (Negative); Urine Glucose Trace (Negative); Urine Protein Negative (Negative); Urine Specific Gravity 1.015 (1.005-1.030); Urine pH 6.5 (5.0-7.0)
[2022-03-18 16:14] LABS: Absolute Lymphocytes (CBC) 2.3 K/uL (0.7-4.9); Hematocrit 32.7 % (36.0-45.0); Lymphocytes % 31.9 % (15.3-44.8); MCV 88.6 fL (80-100); RBC Red Blood Cell Count 3.69 M/uL (3.86-4.86)
[2022-03-18 16:25] LABS: Potassium 3.8 mmol/L (3.5-5.1); Troponin High Sensitivity 5.3 pg/mL (<58.9)
[2022-03-18] MEDS ORDERED: MORPHINE 4 MG/ML SYR ONE (16:29)
[2022-03-18] MEDS ORDERED: ONDANSETRON 4 MG/2 ML VIAL ONE (16:29)
--- NOTE | 2022-03-18 16:39 | RAD REPORT ---
EXAM DESCRIPTION: CT - CTHCSPWOC - 03/18/2022 4:10 pm CLINICAL HISTORY: Trauma, head and neck injury. syncope/head injury/on plavix COMPARISON: Head C Spine Mpr Wo Con dated 06/28/2021 TECHNIQUE: Axial 5 mm thick images of the head were obtained. Axial 2 mm thick images of the cervical spine were obtained with sagittal and coronal reconstruction images generated and reviewed. All CT scans are performed using dose optimization technique as appropriate and may include automated exposure control or mA/KV adjustment according to patient size. FINDINGS: CT HEAD WITHOUT CONTRAST: No acute hemorrhage, hydrocephalus or extra-axial collection is identified.No areas of brain edema or midline shift. Scalp contusion. Mild chronic small vessel ischemic changes. The paranasal sinuses and mastoids are clear.The calvarium is intact. Left occipital scalp hematoma. CT CERVICAL SPINE WITHOUT CONTRAST: No fracture or subluxation.No prevertebral soft tissues swelling is identified. Mild multilevel cervi liborio spondylosis. Trace anterolisthesis C4 on C5 and retrolisthesis of C5 on C6. Multinodular thyroid. IMPRESSION: No acute intracranial or cervical spine findings.
[2022-03-18] MEDS ORDERED: NA CHLORIDE 0.9% 500 ML ONE (17:11)
--- NOTE | 2022-03-18 17:35 | EDPHYS ---
Physician Documentation [facility] Name: Yadira Land Age: 71 yrs Sex: Female : 1950 Arrival Date: 03/18/2022 Time: 15:21 Bed 4 Private MD: ED Physician Ramin Easton HPI: 03/18 16:40 This 71 yrs old Female presents to ER via EMS with complaints of Fall Injury, rn Head Injury Without LOC-Adult, Dizziness. 16:40 Details of fall: The patient fell from an upright position, while walking. Onset: The rn symptoms/episode began/occurred just prior to arrival. Associated injuries: The patient sustained injury to the head, contusion. Severity of symptoms: At their worst the symptoms were mild, in the emergency department the symptoms are unchanged. The patient has experienced a previous episode. The patient has not recently seen a physician. Pt reports feeling lightheaded, passed out, hit head on ground, denies other injuries. Reports only pain to head that radiates to neck. Takes plavix. REports blood sugar in 200s recently. No fever/vomiting/diarrhea/chest pain/sob/abd pain.. Historical: - Allergies: 15:37 No Known Allergies; ld1 - Home Meds: 15:37 clopidogrel 75 mg oral tab 1 tab once daily [Active]; aspirin 81 mg Oral cap 1 cap once ld1 daily [Active]; celecoxib 200 mg Oral cap 1 cap once daily [Active]; folic acid 1 mg Oral tab 1 tab once daily [Active]; gabapentin 800 mg Oral tab 1 tab 3 times per day [Active]; atorvastatin 40 mg oral tab 1 tab once daily [Active]; losartan 100 mg oral tab 1 tab once daily [Active]; chlorthalidone 25 mg Oral tab 1 tab once daily [Active]; montelukast 5 mg oral chew 2 tabs once daily [Active]; citalopram 10 mg tab 1 tab once daily [Active]; - PMHx: 15:37 Diabetes - NIDDM; Hypertension; ld1 - Immunization history: Last tetanus immunization: unknown. - Social history:: Smoking status: Patient denies any tobacco usage or history of. Patient/guardian denies using alcohol. - Family history:: not pertinent. - Hospitalizations: : No recent hospitalization is reported. ROS: 16:40 Constitutional: Negative for fever, chills, and weight loss, Eyes: Negative for injury, rn pain, redness, and discharge, Neck: Negative for injury, and swelling, Cardiovascular: Negative for chest pain, palpitations, and edema, Respiratory: Negative for shortness of breath, cough, wheezing, and pleuritic chest pain, Abdomen/GI: Negative for abdominal pain, nausea, vomiting, diarrhea, and constipation, Back: Negative for injury and pain, MS/Extremity: Negative for injury and deformity, Skin: Negative for injury, rash, and discoloration, Neuro: Negative for weakness, numbness, tingling, and seizure Exam: 16:40 Constitutional: This is a well developed, well nourished patient who is awake, alert, rn and in no acute distress. Head/Face: + hematoma to top/back of scalp, no open wound or bleeding Eyes: Periorbital areas with no swelling, redness, or edema. Neck: No midline cervical tenderness Cardiovascular: Regular rate and rhythm. No pulse deficits. Respiratory: No increased work of breathing, no retractions or nasal flaring. Abdomen/GI: Soft, non-tender Back: No spinal tenderness. No costovertebral tenderness. Full range of motion. Skin: Warm, dry MS/ Extremity: Pulses equal, no cyanosis. Neurovascular intact. Full, normal range of motion. Equal circumference. Neuro: Awake and alert, GCS 15 17:32 ECG was reviewed by the Attending Physician. rn Vital Signs: 15:32 BP 127 / 65; Pulse 85; Resp 22; Temp 97.9(O); Pulse Ox 98% on R/A; Height 5 ft. 3 in. ld1 (160.02 cm); Pain 8/10; 16:35 BP 146 / 66; Pulse 82; Resp 24; Pulse Ox 100% on R/A; Pain 8/10; ld1 17:50 BP 117 / 85; Pulse 79; Resp 22; Pulse Ox 100% on R/A; ld1 [place] Coma Score: 15:32 Eye Response: spontaneous(4). Verbal Response: oriented(5). Motor Response: obeys ld1 commands(6). Total: 15. Trauma Score (Adult): 15:32 Eye Response: spontaneous(1); Verbal Response: oriented(1); Motor Response: obeys ld1 commands(2); Systolic BP: > 89 mm Hg(4); Respiratory Rate: 10 to 29 per min(4); Astrid Score: 15; Trauma Score: 12 MDM: 15:27 Patient medically screened. rn 17:32 Differential diagnosis: closed head injury, contusion, fracture, sprain, strain. Data rn reviewed: vital signs, nurses notes, lab test result(s), EKG, radiologic studies, CT scan, and as a result, I will discharge patient. Counseling: I had a detailed discussion with the patient and/or guardian regarding: the historical points, exam findings, and any diagnostic results supporting the discharge/admit diagnosis, lab results, radiology results, the need for outpatient follow up, to return to the emergency department if symptoms worsen or persist or if there are any questions or concerns that arise at home. Response to treatment: the patient's symptoms have markedly improved after treatment, and as a result, I will discharge patient. Special discussion: Based on the patient's history, exam and DX evaluation, there is no indication for emergent intervention or inpatient TX. It is understood by the patient/guardian that if the SXs persist or worsen they need to return immediately for re-evaluation. I discussed with the patient/guardian in detail that at this point there is no indication for admission to the hospital. It is understood, however, that if the symptoms persist or worsen the patient needs to return immediately for re-evaluation. Based on the history and exam findings, there is no indication for further emergent testing or inpatient evaluation. I discussed with the patient/guardian the need to see the primary care provider for further evaluation of the symptoms. 03/18 15:39 Order name: Basic Metabolic Panel; Complete Time: 16: rn 03/18 15:39 Order name: CBC with Diff; Complete Time: 16: rn 03/18 15:39 Order name: Magnesium; Complete Time: 16:31 rn 03/18 15:39 Order name: Protime (+inr); Complete Time: 16:31 rn 03/18 15:39 Order name: Ptt, Activated; Complete Time: 16:31 rn 03/18 15:39 Order name: Troponin High Sensitivity; Complete Time: 16:31 rn 03/18 15:39 Order name: CT Head C Spine; Complete Time: 16:58 rn 03/18 15:39 Order name: EKG; Complete Time: 15:41 rn 03/18 15:39 Order name: Cardiac monitoring; Complete Time: 15:41 rn 03/18 15:53 Order name: Urine Dipstick-Ancillary; Complete Time: 16:31 EDMS 03/18 15:54 Order name: Glucose, Ancillary Testing; Complete Time: 16:31 EDMS 03/18 15:39 Order name: EKG - Nurse/Tech; Complete Time: 15:41 rn 03/18 15:39 Order name: IV Saline Lock; Complete Time: 15:41 rn 03/18 15:39 Order name: Labs collected and sent; Complete Time: 15:53 rn 03/18 15:39 Order name: O2 Per Protocol; Complete Time: 15:41 rn 03/18 15:39 Order name: O2 Sat Monitoring; Complete Time: 15:41 rn 03/18 15:39 Order name: Urine Dipstick-Ancillary (obtain specimen); Complete Time: 15:41 rn 03/18 15:39 Order name: Glucose Level; Complete Time: 15:45 rn EC:32 Rate is 87 beats/min. Rhythm is regular. QRS [place] is Normal. [place] interval is normal. QRS rn interval is normal. QT interval is normal. No Q waves. T waves are Normal. No ST changes noted. Clinical impression: NSR w/ Non-specific ST/T Changes. Interpreted by me. Reviewed by me. Administered Medications: 16:35 Drug: morphine 4 mg Route: IVP; Infused Over: 4 mins; Site: right antecubital; ld1 16:35 Drug: Zofran (Ondansetron) 4 mg Route: IVP; Site: right antecubital; ld1 17:13 Drug: NS 0.9% 500 ml Route: IV; Rate: bolus; Site: right antecubital; ld1 Disposition Summary: 03/18/22 17:34 Discharge Ordered Location: Home rn Problem: new rn Symptoms: have improved rn Condition: Stable rn Diagnosis - Unspecified injury of head, initial encounter rn - Syncope rn - Dehydration rn - Hyperglycemia, unspecified rn Followup: rn - With: Private Physician - When: As needed - Reason: Recheck today's complaints, Re-evaluation by your physician Discharge Instructions: - Discharge Summary Sheet rn - Dehydration, Adult rn - Head Injury, Adult rn - Hematoma rn - Hyperglycemia rn Forms: - Medication Reconciliation Form rn - Thank You Letter rn - Antibiotic mds rn - Prescription Opioid Use rn Signatures: Dispatcher [employer] Ramin Mckeon MD MD rn Elizabeth Lemon RN RN ld1
--- NOTE | 2022-03-18 17:35 | ER ---
Nurse's Notes [facility] Name: Yadira Land Age: 71 yrs Sex: Female : 1950 Arrival Date: 03/18/2022 Time: 15:21 Bed 4 Private MD: Diagnosis: Unspecified injury of head, initial encounter;Syncope;Dehydration;Hyperglycemia, unspecified Presentation: 03/18 15:32 Chief complaint: EMS states: toned out to pt home due to fall injury - hematoma to back ld1 of head. Pt reports feeling dizzy, fatigue X 2 days. Fell today at 1415 - hit back of head on concrete, denies LOC. Pt is currently taking clopidogrel. Care prior to arrival: None. Mechanism of Injury: Fall from standing position. Trauma event details: Injury occurred in the [facility]. 15:32 Acuity: KARSTEN 2 ld1 15:32 Method Of Arrival: EMS: [facility] ld1 15:37 Coronavirus screen: At this time, the client does not indicate any symptoms associated ld1 with coronavirus-19. Ebola Screen: No symptoms or risks identified at this time. Initial Sepsis Screen: Does the patient meet any 2 criteria? No. Patient's initial sepsis screen is negative. Does the patient have a suspected source of infection? No. Patient's initial sepsis screen is negative. Risk Assessment: Do you want to hurt yourself or someone else? Patient reports no desire to harm self or others. Onset of symptoms was March 18, 2022. Trauma Activation: Alert Physician: ED Physician; Name: ; Notified At: 15:25; Arrived At: Physician: General Surgeon; Name: ; Notified At: 15:25; Arrived At: Physician: Radiology; Name: ; Notified At: 15:25; Arrived At: Physician: Respiratory; Name: ; Notified At: 15:25; Arrived At: Physician: Lab; Name: ; Notified At: 15:25; Arrived At: Historical: - Allergies: 15:37 No Known Allergies; ld1 - Home Meds: 15:37 clopidogrel 75 mg oral tab 1 tab once daily [Active]; aspirin 81 mg Oral cap 1 cap once ld1 daily [Active]; celecoxib 200 mg Oral cap 1 cap once daily [Active]; folic acid 1 mg Oral tab 1 tab once daily [Active]; gabapentin 800 mg Oral tab 1 tab 3 times per day [Active]; atorvastatin 40 mg oral tab 1 tab once daily [Active]; losartan 100 mg oral tab 1 tab once daily [Active]; chlorthalidone 25 mg Oral tab 1 tab once daily [Active]; montelukast 5 mg oral chew 2 tabs once daily [Active]; citalopram 10 mg tab 1 tab once daily [Active]; - PMHx: 15:37 Diabetes - NIDDM; Hypertension; ld1 - Immunization history: Last tetanus immunization: unknown. - Social history:: Smoking status: Patient denies any tobacco usage or history of. Patient/guardian denies using alcohol. - Family history:: not pertinent. - Hospitalizations: : No recent hospitalization is reported. Screenin:32 Abuse screen: Denies threats or abuse. Denies injuries from another. Tuberculosis ld1 screening: No symptoms or risk factors identified. 15:40 Nutritional screening: No deficits noted. Fall Risk Fall in past 12 months (25 points). ld1 No secondary diagnosis (0 pts). IV access (20 points). Gait- Weak (10 pts.). Mental Status- Overestimates/Forgets Limitations (15 pts.). Total Rodriguez Fall Scale indicates High Risk Score (45 or more points). Fall prevention measures have been instituted. Side Rails Up X 2 Frequent Obs/Assessments Occuring. Primary Survey: 15:32 NO uncontrolled hemorrhage observed. Breathing/Chest: Spontaneous respiratory effort, ld1 equal unlabored respirations, breath sounds clear bilaterally, regular pattern, symmetrical chest rise and fall. Respiratory effort: spontaneous. Circulation: No external hemorrhage present. Regular and strong central pulse, skin warm/dry/normal color. Disability Client is alert. Exposure/Environment: All clothing and personal items were removed. Forensic evidence collection is not deemed to be indicated at this time. Items placed in patient belonging bag. Reassessment Breathing: Spontaneous respiratory effort, equal unlabored respirations, breath sounds clear bilaterally, regular pattern with symmetrical chest rise and fall. Circulation: No external hemorrhage noted. Regular and strong central pulse, skin warm/dry/normal color. Disability: Pupils Pupils are equal, round, reactive to light and accomodation. Alert. Assessment: 15:32 General: Appears in no apparent distress. comfortable, Behavior is calm, cooperative, ld1 appropriate for age. Pain: Complains of pain in occipital area Pain does not radiate. Pain currently is 8 out of 10 on a pain scale. Quality of pain is described as throbbing, Pain began suddenly, Is continuous. Neuro: Level of Consciousness is awake, alert, obeys commands, Oriented to person, place, time, situation, Appropriate for age Reports dizziness, headache weakness. EENT: No signs and/or symptoms were reported regarding the EENT system. EENT:. Cardiovascular: Capillary refill < 3 seconds Patient's skin is warm and dry. Rhythm is sinus rhythm. Respiratory: Airway is patent Respiratory effort is even, unlabored. GI: Abdomen is round non-distended. : No signs and/or symptoms were reported regarding the genitourinary system. Derm: No signs and/or symptoms reported regarding the dermatologic system. Musculoskeletal: No signs and/or symptoms reported regarding the musculoskeletal system. 16:36 Reassessment: Pt C/O pain in back of head - notified ERP. See MAR for orders. ld1 Vital Signs: 15:32 BP 127 / 65; Pulse 85; Resp 22; Temp 97.9(O); Pulse Ox 98% on R/A; Height 5 ft. 3 in. ld1 (160.02 cm); Pain 8/10; 16:35 BP 146 / 66; Pulse 82; Resp 24; Pulse Ox 100% on R/A; Pain 8/10; ld1 17:50 BP 117 / 85; Pulse 79; Resp 22; Pulse Ox 100% on R/A; ld1 [place] Coma Score: 15:32 Eye Response: spontaneous(4). Verbal Response: oriented(5). Motor Response: obeys ld1 commands(6). Total: 15. Trauma Score (Adult): 15:32 Eye Response: spontaneous(1); Verbal Response: oriented(1); Motor Response: obeys ld1 commands(2); Systolic BP: > 89 mm Hg(4); Respiratory Rate: 10 to 29 per min(4); [place] Score: 15; Trauma Score: 12 ED Course: 15:21 Patient arrived in ED. eb 15:26 Ramin Easton MD is Attending Physician. rn 15:32 Dibbern, Elizabeth, RN is Primary Nurse. ld1 15:32 Patient has correct armband on for positive identification. Placed in gown. Bed in low ld1 position. Call light in reach. Side rails up X2. Patient maintains SpO2 saturation greater than 95% on room air. 15:32 Inserted saline lock: 20 gauge in right antecubital area, using aseptic technique. ld1 Blood collected. Patient maintains SpO2 saturation greater than 95% on room air. 15:34 Triage completed. ld1 15:37 Arm band placed on right wrist. EKG completed in triage. Results shown to MD. ld1 15:40 No provider procedures requiring assistance completed. ld1 16:12 CT Head C Spine In Process Unspecified. EDMS 17:50 IV discontinued, intact, bleeding controlled, No redness/swelling at site. ld1 Administered Medications: 16:35 Drug: morphine 4 mg Route: IVP; Infused Over: 4 mins; Site: right antecubital; ld1 16:35 Drug: Zofran (Ondansetron) 4 mg Route: IVP; Site: right antecubital; ld1 17:13 Drug: NS 0.9% 500 ml Route: IV; Rate: bolus; Site: right antecubital; ld1 Medication: 15:40 VIS not applicable for this client. ld1 Intake: 15:32 PO: 50ml (Water); Total: 50ml. ld1 Outcome: 17:34 Discharge ordered by . rn 17:50 Discharged to home ambulatory, with family. ld1 17:50 Condition: stable 17:50 Discharge instructions given to patient, family, Instructed on discharge instructions, follow up and referral plans. Demonstrated understanding of instructions, follow-up care. 17:50 Patient left the ED. ld1 Signatures: Dispatcher [employer] EDHI Ramin Easton MD MD rn Botello, Elizabeth eb Dibbern, Lauren, RN RN ld1
[2022-03-18 18:13] VITALS: TEMP 97.9
[2022-03-18 18:19] VITALS: O2SAT 100
[2022-03-18 18:24] VITALS: BP 117/85
--- NOTE | 2022-03-19 18:40 | EKG ---
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
== END 2022-03-18 17:50 | disposition home or self-care (01) ==
LOC: ER 15:19
DX: S00.03XA Contusion of scalp, initial encounter (principal); E86.0 Dehydration; R55 Syncope and collapse; E11.65 Type 2 diabetes mellitus with hyperglycemia; I10 Essential (primary) hypertension; Z79.82 Long term (current) use of aspirin
CPT/HCPCS: 93005; 85025; 80048; 36415; 83735; 85610; 82947; 85730; 81003; 84484; 70450; 72125; 96375; 96374; 99285; J7040; J2405

== ENCOUNTER 2022-04-11 10:45 | Emergency (ER) | payer MEDICARE, OTHER ==
--- OUTSIDE RECORDS SUMMARY | 2022-04-11 10:51 | XMS REPORT | Continuity of Care Document ---
:1950 Author Organization [facility] t Address [address] [place] [address] Care Team Providers Name Role Phone CIRILO ANTONIO Primary Care Physician Unavailable Cirilo Antonio Attending Clinician Unavailable Alicia Chilel Attending Clinician Unavailable PAYTON CRANE Attending Clinician Unavailable Gisselle Attending Clinician Unavailable Colin Evans Attending Clinician SAM MENDIOLA Attending Clinician Unavailable Sam Mendiola MD Attending Clinician Payton Crane MD Attending Clinician Kishor Attending Clinician Unavailable MARLON ABEL Attending Clinician Unavailable Sylvester MELENDREZ, Ayaka Olsen Attending Clinician Comfort Edgar MD Attending Clinician [phone] Marlon Abel MD Attending Clinician [phone] Rohan Chawla Attending Clinician ROHAN PATE Attending Clinician Unavailable MILA_S Attending Clinician Unavailable Fozia-Mbayo_A_AH Attending Clinician Unavailable Tonya_P Attending Clinician Unavailable KAMALJIT ARANGO Attending Clinician Unavailable ANNITA GALVAN Attending Clinician Unavailable STACEYilliams Admitting Clinician Unavailable Keshawn_R Admitting Clinician Unavailable AYAKA PHAN Admitting Clinician Unavailable CURRY_S Admitting Clinician Unavailable Fozia-Mbayo_A_AH Admitting Clinician Unavailable Raju_P Admitting Clinician Unavailable Payers Payer Name Policy Type Policy Number Effective Date Expiration Date S aurelia [facility] 2020 MEDICARE ADVANTAGE 00:00:00 PLAN [id number] 2021 00:00:00 [facility]LY [facility] 2020 (MEDICARE 00:00:00 REPLACEMENT HMO) [facility] MGD [id number] 2005 MCR 00:00:00 [employer] [place] [id number] 2019 [place] (MEDICARE 00:00:00 REPLACEMENT/ADVANTA GE - HMO) [employer] [place] [id number] 2018 (MEDICARE 00:00:00 REPLACEMENT/ADVANTA GE - HMO) () [id number] 2005 00:00:00 [employer] [place] [id number] 2016 CHOICE 00:00:00 [id number] 2005 00:00:00 Problems Condition Condition Condition Status Onset Resolution Last Treating Co mments Source Name Details Category Date Date Treatment Clinician Date Right Right Disease Active [facility] numbness numbness 00:00: Medica l 00 Center Senile Senile Problem Active [facility] purpura Purpura 1- Family 00:00: Practic 00 e Peripheral Peripheral Problem Active [facility] Vascular 1-26 Family disease Disease 00:00: Practic 00 e Type 2 Type [address] [facility] diabetes Diabetes 9-17 Family mellitus Mellitus [...] Active 2018-05 Univers 1-18 ity of 00:00: [place] [facility] Lumbar Lumbar Disease Active Univers radiculopa radiculopa 7-19 it y of thy thy 00:00: Medical Branch Total knee Total knee Disease Active U nivers replacemen replacemen -18 it y of t status t status 00:00: Medical Branch Left knee Left knee Disease Active Uni vers pain pain 3-10 ity of 00:: [place] [facility] Left knee Left knee Disease Active Uni vers pain pain 1-21 ity of 00:00: Medical Branch Mixed Depression Problem Commo n anxiety with Spirit and anxiety - CHI depressive [facility] Vulvovagin Problem C ommon itis itis Spirit [facility] Diabetes Diabetes Problem Commo n mellitus mellitus, Spiri t type 2 type 2 - [facility] [id number] Primary Problem Common osteoarthr Spirit itis, - CHI right hand [facility] [id number] Osteopenia Problem Co mmon of hand, Spirit unspecifie - [facility] d [facility] [id number] Primary Problem Commo n osteoarthr Spirit itis - [facility]I involving [facility] [id number] Hospital Problem Comm on discharge Spirit follow-up [facility] Essential Essential Problem Com mon hypertensi hypertensi Sp evan on on - [facility] Allergic Allergic Problem Commo n rhinitis rhinitis [facility] [id number] Trigger Problem Commo n finger, Spirit left ring - CHI finger [facility] [id number] Exposure Problem Comm on to the flu [facility] [id number] Cough Problem Common [facility] [id number] Chronic Problem Commo n pain Spirit syndrome - [facility] [id number] Common Problem Common cold virus [facility] [id number] Lipoma of Problem Co mmon 13142 torso [facility] [id number] Seasonal Problem Comm on allergies [facility] - [facility] [id number] Screening Problem Com mon for breast Spirit cancer [facility] [id number] Right hand Problem C ommon [id number] pain [facility] [id number] Burn Problem Common [facility] [id number] Uncontroll Problem Co mmon ed type 2 Spirit diabetes - [facility] mellitus [facility] hyperglyce Medica [facility] [id number] Pain in Problem Comm on right knee [facility] [id number] Pain in Problem Common left knee [facility] [id number] Primary Problem Comm on osteoarthr Spirit itis of [facility] right knee [facility] [id number] Effusion Problem Com mon of knee [facility] joint [facility] right [facility] [id number] Body aches Problem Com mon [facility] [id number] Carpal Problem Commo n [id number] tunnel Spirit syndrome - [facility] on both [facility] Chronic Other Problem Common pain chronic [facility] pain - [facility] Allergies, Adverse Reactions, Alerts Allergy Allergy Status Severity Reaction(s) Onset Inactive Treating Comm ents Source Name Type Date Date Clinician NO KNOWN Drug Active Univers ALLERGIE Class ity of S [facility] NO KNOWN Allergy Active [facility] Family History Family Member Diagnosis Comments Start Date Stop Date Source Family member Heart disease [facility] Family member Stroke [facility] Social History Social Habit Start Date Stop Date Quantity Comments Source History [facility]OH [facility] Alcohol Comment Medical C enter History SDOH [facility] Alcohol Std Medical Cente r Drinks History SDOH [facility] Alcohol Binge Medical D[address] ter History of Common Spirit - Tobacco Use [facility] Exposure to 2021-10-01 2021-10-11 Not sure University [facility]-CoV-2 00:00:00 15:38:00 [facility] (event) [place] Tobacco use and 2021-05-28 2021-05-[address] [facility] kes exposure 00:00:00 00:00:00 Medical Center Alcohol intake 2021-05-28 2021-05-[address] [facility] es 00:00:00 00:00:00 non-drinker Medical Cente r (finding) History SDOH 2021-05-28 2021-05-28 [address] [facility] [address] kes Alcohol Frequency 00:00:00 00:00:00 [facility] Sex Assigned At [address] [facility] reids 00:00:00 00:00:00 [facility] Smoking Status Start Date Stop Date Source Former Smoker 2022-02-13 00:00:00 2022-02-13 00:00:00 Common S pirit - [facility] Never smoker [facility] ica Center Medications Ordered Filled Start Stop Current Ordering Indication Dosage Frequency Signature Comments Components Source Medication Medication Date Date Medication? Clinician (SIG) Name Name gabapentin Yes 800mg Q.[id number] Take [address] (NEURONTIN) - [id number] mg by L ukes 800 MG 17:08: 3D mouth 3 Medical tablet 55 (three) Center times daily. folic acid Yes 1mg QD Take [address] (FOLVITE) 1 05-28 by mouth Luke s MG tablet 17:08: daily. Medica l 55 [place] atorvastati Yes 40mg QD Take [address] n (LIPITOR) 05-28 by mouth Luke s 40 MG 17:08: nightly. Medical tablet 55 Center clopidogreL Yes 75mg QD Take [address] (PLAVIX) 75 05-28 by mouth Luke s mg tablet 17:08: daily. Medica l [address] [place] [address] chlorthalid Yes 25mg QD Take [address] one 05-28 by mouth Lukes (HYGROTON) 17:08: daily. Medic al 25 MG 55 Center tablet aspirin 81 Yes 81mg QD Take [address] MG EC 05-28 by mouth [facility]ukes tablet 17:08: daily. Medical [address] [place] [address] glimepiride Yes 2mg Q.5D Take [address] (AMARYL) 2 -02 by mouth 2 Mar[place] es MG tablet 17:08: (two) Medical 55 times Center daily. gabapentin Yes 800mg Q.[id number] Take [address] (NEURONTIN) - [id number] mg by L ukes 800 MG 17:08: 3D mouth 3 Medical tablet 55 (three) Center times daily. folic acid 2021-0 Yes 1mg QD Take [address] (FOLVITE) 1 1-02 by mouth Luke s MG tablet 17:08: daily. [address] atorvastati 0 Yes 40mg QD Take [address] n (LIPITOR) 1-02 by mouth Luke s 40 MG 17:08: nightly. Medical tablet 55 [place] clopidogreL 0 Yes 75mg QD Take [address] (PLAVIX) 75 -02 by mouth Luke s mg tablet 17:08: daily. [address] chlorthalid 0 Yes 25mg QD Take [address] one 1-02 by mouth Lukes (HYGROTON) 17:08: daily. Medic al 25 MG 55 Center tablet aspirin 81 0 Yes 81mg QD Take [address] MG EC -02 by mouth [facility]ukes tablet 17:08: daily. [address] glimepiride 0 Yes 2mg Q.5D Take [address] (AMARYL) 2 -02 by mouth 2 Mar[place]el es MG tablet 17:08: (two) Medical 55 times Center daily. gabapentin 0 Yes 800mg Q.[id number] Take [address] (NEURONTIN) - [id number] mg by L ukes 800 MG 17:08: 3D mouth 3 Medical tablet 55 (three) Center times daily. folic acid 0 Yes 1mg QD Take [address] (FOLVITE) 1 1-02 by mouth Luke s MG tablet 17:08: daily. [facility] [employer] [address] atorvastati 0 Yes 40mg QD Take [address] n (LIPITOR) 1-02 by mouth Luke s 40 MG 17:08: nightly. Medical tablet [address] [place] [address] clopidogreL 2021-0 Yes 75mg QD Take [address] (PLAVIX) 75 1-02 by mouth Luke s mg tablet 17:08: daily. [address] chlorthalid 2021-0 Yes 25mg QD Take [address] one 1-02 by mouth Lukes (HYGROTON) 17:08: daily. Medic al 25 MG 55 Center tablet aspirin 81 2021-0 Yes 81mg QD Take [address] MG EC -02 by mouth Lukes tablet 17:08: daily. [address] glimepiride Yes 2mg Q.5D Take [address] (AMARYL) 2 -02 by mouth 2 Mar[place]el es MG tablet 17:08: (two) Medical 55 times [place] daily. gabapentin Yes 800mg Q.[id number] Take [address] (NEURONTIN) - [id number] mg by L ukes 800 MG 17:08: 3D mouth 3 Medical tablet 55 (three) Center times daily. folic acid Yes 1mg QD Take [address] (FOLVITE) 1 02 by mouth Luke s MG tablet 17:08: daily. Medica [address] atorvastati Yes 40mg QD Take [address] n (LIPITOR) 05-28 by mouth Luke s 40 MG 17:08: nightly. Medical [address] clopidogreL Yes 75mg QD Take [address] (PLAVIX) 75 02 by mouth Luke s mg tablet 17:08: daily. [facility] [employer] [address] chlorthalid Yes 25mg QD Take [address] one 05-28 by mouth Lukes (HYGROTON) 17:08: daily. Medic al [address] [place] [address] tablet aspirin 81 Yes 81mg QD Take [address] MG EC 05-28 by mouth Lukes tablet 17:08: daily. [address] glimepiride Yes 2mg Q.5D Take [address] (AMARYL) 2 -02 by mouth 2 Maricel es MG tablet 17:08: (two) [place] [address] times [place] daily. celecoxib 2021- No 200mg QD Take [address] (CeleBREX) 1-02 01-02 mg by [facility]ukes 200 MG 16:11: 00:00 mouth Medical capsule 18 :00 daily. [place] celecoxib 0 2021- No 200mg QD Take [address] (CeleBREX) - 01-02 mg by Lukes 200 MG 16:11: 00:00 mouth Medical capsule 18 :00 daily. [place] celecoxib 0 2021- No 200mg QD Take [address] (CeleBREX) 1-02 01-02 mg by [facility]ukes 200 MG 16:11: 00:00 mouth Medical capsule 18 :00 daily. Center celecoxib 2022-0 2022- No 200mg QD Take [address] (CeleBREX) 1-02 01-02 mg by [facility] 200 MG 16:11: 00:00 mouth Medical capsule 18 :00 daily. Center Glimepiride Glimepiride Yes Alicia 1 tablet Common 02-02 [place] with Spirit 00:00: breakfast - or the first main [facility] meal of Medical the day Center Glimepiride Glimepiride 0 No 1{table Glimepirid 2 MG 2 MG 02-02 t_with_ e 2 MG 00:00: _or_t he_firs t_main_ meal_of _the_da y} GABAPENTIN 2019-0 Yes [id number] TAKE 1 Univers 300 mg 8-04 CAPSULE BY ity of capsule 00:00: MOUTH 3 TIMES A Medical DAY Branch GABAPENTIN 2020-0 Yes [id number] TAKE 1 Univers 300 mg 8-04 CAPSULE BY ity of capsule 00:00: MOUTH 3 TIMES A Medical DAY Branch GABAPENTIN 2020-0 Yes [id number] TAKE 1 Univers 300 mg 8-04 CAPSULE BY ity of capsule 00:00: MOUTH 3 [place] TIMES A Medical DAY Branch Januvia Januvia 2019-0 Yes Alicia 1 tablet Co mmon 5-26 [place] Spirit 00:00: - [facility] Januvia 50 Januvia 50 2019-0 No 1{table Januvia 50 MG MG 5-26 t} MG 00:00: 00 Diclofenac 2020-0 Yes [id number] Apply to Univers Sodium 3-19 area(s) 4 ity of (VOLTAREN) 00:00: (four) [place] 1 % gel 00 times Medical daily. Branch Diclofenac 2020-0 Yes [id number] Apply to Univers Sodium 3-19 area(s) 4 ity of (VOLTAREN) 00:00: (four) [place] 1 % gel 00 times Medical daily. Branch Diclofenac 2020-0 Yes [id number] Apply to Univers Sodium 3-19 area(s) 4 [...] 2-07 by mouth ity of 09:42: daily. [address] insulin 2020-0 Yes 15U inject 15 [...] 2-07 by mouth ity of 09:42: daily. [address] insulin 2020-0 Yes 15U inject 15 [...] 2-07 by mouth ity of 09:42: daily. [address] insulin 2020-0 Yes 15U inject 15 Unive rs glargine 2-07 Units ity of (LANTUS 09:42: under the [place] U-100) 100 43 skin at Medica l unit/mL bedtime. Branch injection dapaglifloz 2020-0 Yes Carmelaxiga 5 U nivers in 2-07 mg tablet ity of (CARMELAXIGA) 5 09:42: Take 1 [place] mg tablet 43 tablet Medical every day Branch by oral route. hydrOXYzine 2020-0 Yes [id number] 25mg Take 1 Univers 25 mg 1-31 tablet by ity of tablet 00:00: mouth [place] 00 every 6 Medical (six) Branch hours as needed for Itching. gabapentin 2020-0 Yes [id number] 600mg Take 1 Univers 600 mg 1-31 tablet by ity of tablet 00:00: mouth 3 [place] 00 (three) Medical times Branch daily. hydrOXYzine 2020-0 Yes [id number] 25mg Take 1 Univers 25 mg 1-31 tablet by ity of tablet 00:00: mouth [place] 00 every 6 Medical (six) Branch hours as needed for Itching. gabapentin 2020-0 Yes [id number] 600mg Take 1 Univers 600 mg 1-31 tablet by ity of tablet 00:00: mouth 3 [place] 00 (three) Medical times Branch daily. hydrOXYzine 2020-0 Yes [id number] 25mg Take 1 Univers 25 mg 1-31 tablet by ity of tablet 00:00: mouth [place] 00 every 6 Medical (six) Branch hours as needed for Itching. gabapentin 2020-0 Yes [id number] 600mg Take 1 Univers 600 mg 1-31 tablet by ity of tablet 00:00: mouth 3 [place] 00 (three) Medical times Branch daily. methylPREDN 2020-0 Yes [id number] 84mg Take 21 Univers ISolone 1-16 tablets by ity of (MEDROL, 00:00: mouth [place] PURNIMA,) 4 mg 00 SEE-INSTRU Med ical tablets CTIONS. Branch follow package directions methylPREDN 2020-0 Yes [id number] 84mg Take 21 Univers ISolone 1-16 tablets by ity of (MEDROL, 00:00: mouth [place] PURNIMA,) 4 mg 00 SEE-INSTRU Med ical tablets CTIONS. Branch follow package directions methylPREDN 2020-0 Yes [id number] 84mg Take 21 Univers ISolone 1-16 tablets by ity of (MEDROL, 00:00: mouth [place] PURNIMA,) 4 mg 00 SEE-INSTRU Med ical tablets CTIONS. Branch follow package directions lisinopril 2018-05 Yes 10mg Take 10 mg U nivers 10 mg 2-24 by mouth ity of tablet 00:00: daily. [place] [facility] Branch citalopram 2018-05 Yes 10mg Take 10 mg U nivers 10 mg 2-24 by mouth ity of tablet 00:00: daily. [place] [facility] Branch lisinopril 2018-05 Yes 10mg Take 10 mg U nivers 10 mg 2-24 by mouth ity of tablet 00:00: daily. [place] [facility] Branch citalopram 2018-05 Yes 10mg Take 10 mg U nivers 10 mg 2-24 by mouth ity of tablet 00:00: daily. [place] [facility] Branch lisinopril 2018-05 Yes 10mg Take 10 mg U nivers 10 mg 2-24 by mouth ity of tablet 00:00: daily. [place] [facility] Branch citalopram 2018-05 Yes 10mg Take 10 mg U nivers 10 mg 2-24 by mouth ity of tablet 00:00: daily. [address] Branch naproxen 0 Yes TAKE 1 Univers 500 mg 7-11 TABLET ity of tablet 00:00: WITH FOOD [place] 00 OR MILK Medical NEEDED Branch TWICE A DAY ORALLY 30 DAYS naproxen [id number] Yes TAKE 1 Univers 500 mg 7-11 TABLET ity of tablet 00:00: WITH FOOD [place] 00 OR MILK Medical NEEDED Branch TWICE A DAY ORALLY 30 DAYS naproxen 20180 Yes TAKE 1 Univers 500 mg 7-11 TABLET ity of tablet 00:00: WITH FOOD [place] 00 OR MILK Medical NEEDED Branch TWICE A DAY ORALLY 30 DAYS LORazepam Yes TAKE 1 Univer s 0.5 mg 7-10 TABLET BY ity of tablet 00:00: MOUTH [place] EVERY 12 Medical HOURS Branch NEEDED FOR ANXIETY LORazepam Yes TAKE 1 Univer s 0.5 mg 7-10 TABLET BY ity of tablet 00:00: MOUTH [place] EVERY 12 Medical HOURS Branch NEEDED FOR ANXIETY LORazepam 2017- Yes TAKE 1 Univer s 0.5 mg 7-10 TABLET BY ity of tablet 00:00: MOUTH [place] EVERY 12 Medical HOURS Branch NEEDED FOR ANXIETY terbinafine Yes 250mg Take 250 U nivers HCl 250 mg 6-13 mg by ity of tablet 00:00: mouth [place] 00 daily. Medical Branch terbinafine 2018-0 Yes 250mg Take 250 U nivers HCl 250 mg 6-13 mg by ity of tablet 00:00: mouth [place] 00 daily. Medical Branch terbinafine 2018-0 Yes 250mg Take 250 U nivers HCl [...] nasal mcg/actuat spray,suspe spray,suspe ion nasal nsion [place] nsion [place] spray,susp 1 spray 1 spray ension twice a day twice a day [place] 1 by by spray intranasal intranasal twice [...] day by oral route. acetaminoph acetaminoph No [facility] en 300 en 300 hen 300 Family [...] HOURS EVERY [address]ox[address] [facility] 500 500 n 500 Family mg-potassiu mg-potassiu mg-potassi Practic m m um e clavulanate clavulanate clavulanat 125 mg 125 mg e 125 mg tablet tablet tablet BD BD No BD [place] Ultra-Fine Ultra-Fine Ultra-Fine Family Micro Pen Micro Pen Micro Pen Practic Needle 32 Needle 32 Needle 32 e gauge x gauge x gauge x 05/30" 05/30" 05/30" celecoxib celecoxib No celecoxib [facility] 200 mg 200 mg 200 mg Family [...] DAY citalopram citalopram No [address] [facility] 10 mg 10 mg 10 mg Family tablet Take tablet Take tablet Practic 1 tablet 1 tablet Take 1 e every day every day tablet by oral by oral every day route. route. by oral route. dexamethaso dexamethaso No dexamethas [facility] ne 6 mg ne 6 mg one 6 mg Famil y tablet tablet tablet Practic e diclofenac diclofenac No diclofenac [facility] 1 % topical 1 % topical 1 % F amily gel APPLY gel APPLY topical Pr actic TO AFFECTED TO AFFECTED gel APPLY e AREA TWICE AREA TWICE TO A DAY A DAY AFFECTED AREA TWICE A DAY diclofenac diclofenac No diclofenac [facility] sodium 75 sodium 75 sodium 75 Family mg mg mg Practic tablet,janeen tablet,janeen tablet,del e yed release yed release ayed release gabapentin gabapentin No 1capsul BID gabapentin [facility] 300 mg 300 mg e(s) 300 mg Family capsule capsule capsule Practi c Take 1 Take 1 Take 1 e capsule capsule capsule twice a day twice a day twice a by oral by oral day by route. route. oral route. gabapentin gabapentin No gabapentin [facility] 800 mg 800 mg 800 mg Family tablet TAKE tablet TAKE tablet Practic 1 TABLET BY 1 TABLET BY TAKE 1 e MOUTH THREE MOUTH THREE TABLET BY TIMES A DAY TIMES A DAY MOUTH THREE TIMES A DAY glimepiride glimepiride No glimepirid [facility] 2 mg tablet 2 mg tablet e [...] GLUCOSE GLUCOSE GLUCOSE levofloxaci levofloxaci No levofloxac [facility] n 500 mg n 500 mg in 500 mg Fa angel tablet tablet tablet Practic e lisinopril lisinopril No lisinopril [facility] 10 mg 10 mg 10 mg Family tablet tablet tablet Practic e lisinopril lisinopril No lisinopril [facility] 20 mg 20 mg 20 mg Family tablet Take tablet Take tablet Practic 1 tablet 1 tablet Take 1 e every day every day tablet by oral by oral every day route. route. by oral route. meloxicam meloxicam meloxicam [facility] 7.5 mg 7.5 mg 7.5 mg Family tablet Take tablet Take tablet Practic 1 tablet 1 tablet Take 1 e every day every day tablet by oral by oral every day route. route. by oral route. metformin metformin No metformin [facility] 1,000 mg 1,000 mg 1,000 mg Fam mara tablet Take tablet Take tablet Practic 1 tablet 1 tablet Take 1 e twice a day twice a day tablet by oral by oral twice a route. route. day by oral route. metformin metformin No metformin [facility] 500 mg 500 mg 500 mg Family tablet tablet tablet Practic e methylpredn methylpredn No methylpred [facility] isolone 4 isolone 4 nisolone 4 Family mg tablets mg tablets mg tablets Practic in a dose in a dose in a dose e pack pack pack ondansetron ondansetron No ondansetro [facility] HCl 4 mg HCl 4 mg [...] once a day pregabalin pregabalin No pregabalin [facility] 75 mg 75 mg 75 mg Family capsule capsule capsule Practi c e Ultra Thin Ultra Thin No Ultra Thin [facility] Lancets 31 Lancets 31 Lancets 31 Family gauge Use gauge Use gauge Use Practic to test to test to test e blood blood blood glucose glucose glucose once a day once a day once a day Celexa Celexa Yes Alicia 1 tablet Common [place] Spirit - [facility] Acetaminoph Acetaminoph Yes Alicia 1 tablet Common en-Codeine en-Codeine [place] as needed Spirit #3 #3 - [facility] Lisinopril Lisinopril Yes Alicia 1 tablet Common [place] Spirit [facility] Melatonin Melatonin Yes Alicia 1 tablet Common [place] at bedtime Spir it as needed - CHI with food [facility] Gabapentin Gabapentin Yes Alicia 1 tablet Common [place] Spirit [facility] Diclofenac Diclofenac Yes Alicia TAKE 1 Common Sodium Sodium [place] TABLET BY S pirit MOUTH - CHI TWICE A St DAY WITH [facility] Metformin Metformin Yes Alicia 1 tablet Common HCl HCl [place] with meals Spir it - [facility] Acetaminoph Acetaminoph No 1{table 6xD Acetaminop en-Codeine [...] blood 2021-10-11 20:43:00 121 mm[Hg] Univer sity [facility] Diastolic blood 2021-10-11 20:43:00 74 mm[facility]Hg[facility] 2021-10-11 20:43:00 88 /min [facility] Body height 2021-10-11 20:43:00 163.8 cm [facility] Body weight 2021-10-11 20:43:00 71.26 kg Universi ty [facility] Medical [place] BMI 2021-10-11 20:43:00 26.55 kg/m2 [facility] Oxygen saturation in 2021-10-11 20:43:00 94 /min University Arterial blood by [facility] Pulse oximetry Branch Height 2020-02-12 00:00:00 63 [in_i] [facility] Height 2019-12-11 00:00:00 63 [in_i] [facility] BMI (Body Mass 2019-12-11 00:00:00 28.9 kg/m2 [facility] Family Index) Practice Body Weight 2019-12-11 00:00:00 163 [lb_av] [facility] BP Diastolic 2018-11-14 00:00:00 83 mm[Hg] [facility] Height 2018-11-14 00:00:00 64 [in_i] [facility] BMI (Body Mass 2018-11-14 00:00:00 25.5 kg/m2 [facility] Medical Index) Group BP Systolic 2018-11-14 00:00:00 149 mm[Hg] [facility] Body Weight 2018-11-14 00:00:00 148.4 [lb_av] [facility] Systolic blood 2021-05-28 16:00:00 185 mm[Hg] [facility] Diastolic blood 2021-05-28 16:00:00 77 mm[Hg] [facility] Heart rate 2021-05-28 16:00:00 94 /min [facility] Body temperature 2021-05-28 16:00:00 36.11 Meghana [facility] Respiratory rate 2021-05-28 16:00:00 18 /min [facility] Oxygen saturation in 2021-05-28 16:00:00 98 /min [facility] Arterial blood by Medical Ce ntrayo Pulse oximetry Procedures Procedure Date / Time Performing Clinician Source Performed POCT-GLUCOSE METER 2021-05-28 12:13:00 Marlon Abel [facility] POCT-GLUCOSE METER 2021-05-28 08:42:00 Isi, Mrinalini [facility] HEMOGLOBIN A1C 2021-05-28 08:36:00 Ashwin Lopez [facility] TSH/FREE T4 IF INDICATED 2021-05-28 08:36:00 Ashwin Lopez [facility] VITAMIN B12 AND FOLATE 2021-05-28 08:36:00 Jessica [facility] RPR 2021-05-28 08:36:00 Jessica [facility] C-REACTIVE PROTEIN 2021-05-28 08:36:00 Jessica [facility] BASIC METABOLIC PANEL 2021-05-28 04:52:00 Tala, Comfort [facility] MAGNESIUM 2021-05-28 04:52:00 Comfort Edgar [facility] CBC W/PLT COUNT & AUTO 2021-05-28 04:52:00 Comfort Edgar [facility] LIPID PANEL 2021-05-28 04:52:00 Jessica [facility] CBC W/PLT COUNT & AUTO 2021-05-28 04:52:00 Comfort Edgar [facility] POCT-GLUCOSE METER 2021-05-28 01:02:00 Tala Comfort R[facility] TYMPANOMETRY 2018-11-14 00:00:00 [facility] Plan of Care Planned Activity Planned Date Details Comments Source Future Scheduled Test 2022-01-25 INFLUENZA VACCINE (#1) [facility] 00:00:00 [code = INFLUENZA Medical Ce nter VACCINE (#1)] Future Scheduled Test 2022-01-25 INFLUENZA VACCINE (#1) [...] [facility] 00:00:00 (1 of 1 [facility] Center [id number] PCV13) [code = PNEUMOCOCCAL 65+ YRS (1 of 1 - [id number]_Qwzphez PCV13)] Future Scheduled Test 2014 PNEUMOCOCCAL 65+ YRS [facility] 00:00:00 (1 - PCV) [code = Medical Ce nter PNEUMOCOCCAL 65+ YRS (1 - PCV)] Future Scheduled Test 2014 PNEUMOCOCCAL 65+ YRS [facility] 00:00:00 (1 of 1 [facility] Center [id number]_Bknrghb PCV13) [code = PNEUMOCOCCAL 65+ YRS (1 of 1 - OBFQ71_Iqurqqd PCV13)] Future Scheduled Test 2014 PNEUMOCOCCAL 65+ [...] ter VACCINE (#1)] Future Scheduled Test 1949 COVID-19 VACCINE (#1) [facility] 00:00:00 [code = COVID-[address] VACCINE (#1)] Future Scheduled Test 1949 [facility] malignant neoplasm [facility] Center breast (procedure) [code = 794559729] Future Scheduled Test [address] [facility] 00:00:00 (combo) [code = CT Medical C enter Colonography (combo)] Future Scheduled Test 1949 [facility] colon (procedure) [code = 118286427] Future Scheduled Test 1949 [facility] colon (procedure) [code = 417221535] Future Scheduled Test 1949 DXA SCAN [code = DXA [facility] 00:00:00 SCAN] Medical Center Future Scheduled Test 1949 [facility]:00 [facility] colon (procedure) [code = 987951324] Future Scheduled Test 1949 [facility]:00 [facility] colon (procedure) [code = 093568280] Future Scheduled Test 1949 Sigmoidoscopy [code = [facility] 00:00:00 Sigmoidoscopy] [facility] Future Scheduled Test 1949 [facility]:00 malignant ne[facility] Center breast (procedure) [code = 361301479] Future Scheduled Test 1949 [facility]:00 [facility] colon (procedure) [code = 710421690] Future Scheduled Test 1949 DXA SCAN [code = DXA [facility] 00:00:00 SCAN] [facility] Future Scheduled Test 1949 [facility] breast (procedure) [code = 091970938] Future Scheduled Test 1949 [facility]:00 malignant [facility] Center colon (procedure) [code = 751660270] Future Scheduled Test 1949 DXA SCAN [code = DXA [facility] 00:00:00 SCAN] [facility] Future Scheduled Test 1949 [facility] Center breast (procedure) [code = 638289648] Future Scheduled Test [address] [facility] 00:00:00 (combo) [code = CT Medical C enter Colonography (combo)] Future Scheduled Test 1949 [facility]:00 malignant [facility]oplasm [facility] Center colon (procedure) [code = 254592712] Future Scheduled Test 1949 [facility] 00:[facility]:00 malignant [facility] Center colon (procedure) [code = 957643490] Future Scheduled Test 1949 DXA SCAN [code = DXA [facility] 00:00:00 SCAN] [facility] Future Scheduled Test 1949 [facility] Center colon (procedure) [code = 558306298] Future Scheduled Test 1949 [facility] 00:[facility]:00 malignant [facility] Center colon (procedure) [code = 469903539] Future Scheduled Test 1949 Sigmoidoscopy [code = [facility] 00:00:00 Sigmoidoscopy] Medical Jerzy curry Group Encounters Start End Encounter Admission Attending Care Care Encounter Source Date/Time Date/Time Type Type Clinicians Facility Department ID 2022-02-13 Outpatient Inna, STLMLC STLMLC [id number] Common 09:18:01 Cirilo [facility] 2022-02-12 Outpatient STLMLC STLMLC [id number] Common 10:26:01 [facility] 2022-01-26 Outpatient zzzMillende STLMLC STLMLC [id number] Common 11:09:01 Alicia adkins [facility] 2021-12-19 Outpatient zzzMillende STLMLC STLMLC [id number] Common 16:35:01 Alicia adkins [facility] 2021-06-21 Outpatient Millender, STLMLC STLMLC [id number] Common 13:39:14 Alicia 32426 [facility] 2021-06-21 Outpatient Millender, STLMLC STLMLC [id number] Common 13:38:05 Alicia 53740 [facility] 2021-06-21 Outpatient Millender, STLMLC STLMLC [id number] Common 11:44:26 Alicia 07682 [facility] 2021-06-21 Outpatient Millender, STLMLC STLMLC [id number] Common 11:40:16 Alicia 18267 [facility] 2021-06-21 Outpatient Millender, STLMLC STLMLC [id number] Common 11:23:33 Alicia 44021 [facility] 2021-06-21 Outpatient Millender, STLMLC STLMLC [id number] Common 11:23:07 Alicia 17153 [facility] 2022-02-27 2022-02-27 (TEL) STLMLC STLC [id number] Co mmon 00:00:00 00:00:00 [facility] - [facility] 2022-01-25 2022-01-25 [facility] [id number] Univers 08:30:00 08:30:00 PAYTON [facility] 2021-12-08 2021-12-08 Outpatient Gisselle [facility] [id number] Devoted 08:16:00 08:16:00 0715 [facility] 2021-11-22 2021-11-22 CAV Vonja 2.16.840. 2.16.840.1. CLAC [id number] Devoted 14:00:00 15:00:00 Nathan [id number] [id number] Medical [id number] 2021-11-21 2021-11-21 Outpatient R [facility] [id number] Univers 09:20:00 09:20:00 SAM beebe o f [facility] 2021-11-21 2021-11-21 [facility]phone [facility] [id number] Univers 00:00:00 00:00:00 Sam LUTHER 350.1.13.10 ity of [place] [id number] Oh camron CHEEMA 059 [facility] 2021-11-15 2021-11-15 Outpatient Gisselle [facility] [id number] Devoted 03:32:00 03:32:00 0622 [facility] 2021-10-11 2021-10-11 Outpatient R [facility] [id number] Univers 16:00:00 16:03:06 [facility] 2021-10-11 2021-10-11 Office [facility] [id number] Univers 16:00:00 16:03:06 Visit [facility] 350.1.13.10 it y of [facility] 4.2.7.2.686 Sameer as CUAUHTEMOC?BLEA [phone] Oh camron MENDOZAEY 198 [facility] OFFICE [facility] 2021-10-11 2021-10-11 Outpatient R [facility] [id number] Univers 16:00:00 16:03:06 PAYTON octavianoteodoro [facility] 2021-09-06 2021-09-06 Outpatient Kishor DMG DMG [id number] Devoted 01:57:00 01:57:00 0413 [facility]ica l Group 2021-05-28 2021-05-28 Outpatient ER OSIEL ABEL Neurology [id number] SLE 00:42:00 17:08:00 [facility] 2021-05-28 2021-05-28 [facility] Ayaka Phan [facility] [id number] 00:42[facility]00 17:08:00 Encounter Comfort [facility] 2021-05-28 2021-05-28 [facility] Ayaka Phan [facility] [id number] 00:42[facility]00 17:08:00 Encounter TalaComfort Alan deann Abel, [facility] 2021-05-28 2021-05-28 Travel [facility] [id number] [facility] 00:[facility] 00:00:00 [facility] 2021-05-28 2021-05-28 Travel [facility] [id number] [facility] 00:[facility] 00:00:00 [facility] 2021-03-22 2021-03-22 Outpatient Diane [facility] [id number] Univers 13:45:00 13:45:00 PAYTON octavianoteodoro [facility] 2021-03-20 2021-03-20 [facility] [id number] Univers 15:05:00 23:59:00 Encounter Rohan [facility] [id number] itteodoro [facility] 4.2.7.2.686 Sameer as Cuauhtemoc?Blea [id number] Oh chente[address] Medical Office [facility] 2021-03-20 2021-03-20 Office [facility] 1.2.840.114 [id number] Univers 14:51:53 16:00:20 Visit [facility] 350.1.13.10 it y lilly [place] 4.2.7.2.686 Sameer as Cuauhtemoc?Blea [id number] Oh camron [address] Medical Office [facility] 2021-03-20 2021-03-20 Outpatient Diane [facility] [id number] Univers 14:45:00 16:00:20 [facility] 2021-03-20 2021-03-20 Outpatient Diane [facility] [id number] Univers 14:45:00 14:45:00 [facility] 2020-12-27 2020-12-27 [place] [id number] Devoted 01:40:00 01:40:00 0803 Medica l Group 2020-07-01 2020-07-01 Outpatient Fozia-Mbayo VFP VFP [id number] [facility] 05:22:00 05:22:00 _A_AH 50797 Family Practic e 2020-06-23 2020-06-23 Outpatient Fozia-Mbayo VFP VFP [id number] [facility] 02:12:00 02:12:00 _A_AH 08913 Family Practic e 2020-06-22 2020-06-22 Outpatient Fozia-Mbayo VFP VFP [id number] [facility] 10:49:00 10:49:00 _A_AH 85352 Family Practic e 2020-06-21 2020-06-21 Prerna VFP [place] - [id number] [facility] 00:00:00 00:00:[address] [facility] 84357 Fam mara jennings, CONSULTING BUSINESS DEVELOPER: Medical - Practi c 9235 Cathy [email or web address]_ e [facility], [address] [address], [place] [address] , Ph. 2020-04-13 2020-04-13 Outpatient Raju_P MMG MMG [id number] [place] 02:32:00 02:32:00 1118 [facility] 2020-03-01 2020-03-01 Outpatient Fozia-Mbayo VFP VFP [id number] [facility] 04:05:00 04:05:00 _A_AH 96795 Family Practic e 2020-02-29 2020-02-29 Outpatient Fozia-Mbayo VFP VFP [id number] [facility] 01:50:00 01:50:00 _A_AH 01381 Family Practic e 2020-02-22 2020-02-22 Outpatient Fozia-Mbayo VFP VFP [id number] [facility] 08:48:00 08:48:00 _A_AH 40372 Family Practic e 2020-02-12 2020-02-12 Prerna VFP [place] - [id number] [facility] 00:00:00 00:00:[address] [facility] 93939 Venu jennings CONSULTING BUSINESS DEVELOPER: Medical - Practi jesus 9235 Cathy [email or web address]_[email or web address]_ e [facility], [address] [address], [place] [address] , Ph. 2020-02-03 2020-02-03 Outpatient Dieter Arguello [id number] Common 11:00:00 11:00:00 [facility] 2020-01-11 2020-01-11 Outpatient Fozia-Mbayo VFP VFP [id number] [facility] 06:55:00 06:55:00 _A_AH 27326 Family Practic e 2020-01-06 2020-01-06 Outpatient Fozia-Mbayo VFP VFP [id number] 07:22:00 07:22:00 _A_AH 03452 Family Practic e 2019-12-31 2019-12-31 Outpatient COH COH PDPFEJF PWQ COH 00:00:00 00:00:00 [id number] 3 2019-12-30 2019-12-30 Outpatient Fozia-Mbayo VFP VFP [id number] [facility] 07:14:00 07:14:00 _A_AH 93383 Family Practic e 2019-12-28 2019-12-28 RORY Knapp 1.2.840.114 [id number] 00:00:00 00:00:00 [facility] 350.1.13.10 Surgical 4.2.7.2.686 Specialti [id number] es 198 [place] 2019-12-28 2019-12-28 [facility] 1.2.840.114 [id number] 00:00:00 00:00:00 [facility] 350.1.13.10 Surgical 4.2.7.2.686 Specialti [id number] es 198 [place] 2019-12-25 2019-12-25 Outpatient [facility]o [id number] [facility] 01:52:00 01:52:00 _A_AH 07834 Family Practic e 2019-12-23 2019-12-23 Outpatient [facility] [id number] Common 10:54:00 10:54:00 [facility] Medical [facility] 2019-12-17 2019-12-17 Outpatient Fozia[facility]Mbayo [facility] [id number] [facility] 10:07:00 10:07:00 _A_AH 05649 Family [facility] e 2019-12-11 2019-12-11 [facility] [place] [facility] [id number] [facility] 00:00:00 00:00:00 [facility] [address] [facility] mara jennings CONSULTING BUSINESS DEVELOPER: Medical - Practi c 9235 Cathy [email or web address], [address] [address], [place] [address] , Ph. 2019-12-10 2019-12-10 Office [facility] [id number] [id number] 15:07:12 15:45:01 Visit [facility] 350.1.13.10 Surgical 4.2.7.2.686 Specialti [id number] es 198 [place] 2019-12-10 2019-12-10 Outpatient Diane [facility] [id number] [facility] 15:00:00 15:00:00 PAYTON teodoro [facility] 2019-12-03 2019-12-03 Outpatient [facility] [id number] Common 14:42:00 14:42:00 [facility] 2019-10-27 2019-10-27 Outpatient [facility] [id number] Common 16:30:00 16:30:00 [facility] 2019-10-20 2019-10-20 Outpatient Dieter Dietert [id number] Common 22:55:00 22:55:[address] [facility] [address] [facility] 2019-10-20 2019-10-20 Outpatient [facility]io[facility]rea [facility] [id number] Common 09:40:00 09:40:00 [facility] [address] [facility] 2019-09-22 2019-09-22 Outpatient Diane [facility] [id number] Univers 10:00:00 10:00:00 [facility] 2019-08-17 2019-08-17 Outpatient Diane [facility] [id number] Univers 13:45:00 13:45:00 [facility] 2019-07-23 2019-07-23 Outpatient Jorge [facility] [id number] [facility] 01:59:00 01:59:00 _A_AH 15113 Family Practic e 2019-07-16 2019-07-16 Outpatient Diane [facility] [id number] Univers 08:45:00 08:56:09 [facility] 2019-06-26 2019-06-26 Outpatient K[facility]AL[facility]IT [facility] [id number] Univers 11:03:09 23:59:00 [facility] 2019-04-28 2019-04-28 Outpatient Diane [facility] [id number] Univers 11:51:08 23:59:00 ANNITA [facility] 2018-11-14 2018-11-14 Declan [facility] [place] [place] - [id number] [place] 00:00:00 00:00:00 MD Tonya: [address], [place] [address], [facility] [address] , Ph. Results Test Description Test Time Test Comments Results Result Comments Source [facility] 2021-05-29 11:37:18 Test Item Value Reference Range Interpretation Comme nts RPR (test code = 95377-3) Nonreactive Nonreactive Lab Interpretation (test code = 31627-3) Normal [place] 54695022-01-03 11:37:18 Test Item Value Reference Range Interpretation Comments RPR (test code = 58939-4) Nonreactive Nonreactive Lab Interpretation (test code = Normal 25022-7) [place] 54695022-01-03 11:37:18 Test Item Value Reference Range Interpretation Comments RPR (test code = 26631-3) Nonreactive Nonreactive Lab Interpretation (test code = Normal 33155-5) [place] 54695022-01-03 11:37:18 Test Item Value Reference Range Interpretation Comments RPR (test code = 63644-4) Nonreactive Nonreactive Lab Interpretation (test code = Normal 31268-6) [place] 54695022-01-03 11:37:18 Test Item Value Reference Range Interpretation Comments RPR SCREEN (BEAKER) (test code = Nonreactive Nonreactive 420) Hemoglobin [id number] 13:48:33 Test Item Value Reference Range Interpretation Comments Hemoglobin A1C (test code = 4548-4) 8.0 % 4.3-6.1 H Lab Interpretation (test code = Abnormal 80699-2) [facility] [id number] 13:48:33 Test Item Value Reference Range Interpretation Comments Hemoglobin A1C (test code = 4548-4) 8.0 % 4.3-6.1 H Lab Interpretation (test code = Abnormal 81958-3) [facility] [id number] 13:48:33 Test Item Value Reference Range Interpretation Comments Hemoglobin A1C (test code = 4548-4) 8.0 % 4.3-6.1 H Lab Interpretation (test code = Abnormal 00457-2) [facility] [id number] 13:48:33 Test Item Value Reference Range Interpretation Comments Hemoglobin A1C (test code = 4548-4) 8.0 % 4.3-6.1 H Lab Interpretation (test code = Abnormal 94886-8) [facility] [id number] 13:48:33 Test Item Value Reference Range Interpretation Comments HEMOGLOBIN A1C (BEAKER) (test code = 8.0 % 4.3-6.1 H 368) POC-Glucose [id number] 12:30:39 Test Item Value Reference Range Interpretation Comments POC-Glucose Meter (test 154 mg/dL 70-110 H : TE STED AT [facility] code = 1538) [address] [place] [address], 770 30: Wool Fleece Sorter/Techni tenisha ID = [id number] for DOE, IZAIAH Lab Interpretation (test Abnormal code = 06277-1) [facility]-Glucose [id number] 12:30:39 Test Item Value Reference Range Interpretation Comments POC-Glucose Meter (test 154 mg/dL 70-110 H : TE STED AT [facility] code = 1538) [address] [place] [address], 770 30: Wool Fleece Sorter/Techni tenisha ID = [id number] for DOE, IZAIAH Lab Interpretation (test Abnormal code = 10993-0) [facility]-Glucose [id number] 12:30:39 Test Item Value Reference Range Interpretation Comments POC-Glucose Meter (test 154 mg/dL 70-110 H : TE STED AT [facility] code = 1538) [address] [place] [address], 770 30: Wool Fleece Sorter/Techni tenisha ID = [id number] for DOE, IZAIAH Lab Interpretation (test Abnormal code = 59617-4) [facility]-Glucose [id number] 12:30:39 Test Item Value Reference Range Interpretation Comments POC-Glucose Meter (test 154 mg/dL 70-110 H : TE STED AT [facility] code = 1538) [address] [place] [address], [facility] 30: Wool Fleece Sorter/Techni tenisha ID = [id number] for DOE, IZAIAH Lab Interpretation (test Abnormal code = 85536-1) [facility]-GLUCOSE [id number] 12:30:39 Test Item Value Reference Range Interpretation Comments POC-GLUCOSE METER 154 mg/dL 70-110 H : TESTED A T [facility] 6720 (BEAKER) (test code = [facility], 1538) 25555: Wool Fleece Sorter/Techni tenisha ID = [id number] for OJ JAEL, IZAIAH TSH/Free T4 If [id number] 09:53:22 Test Item Value Reference Range Interpretation Comments TSH (test code = 2.157 See_Comment [Automated 53480-9) message] The system which generated this result transmit queenie reference range : 0.350 - 4.940 uIU/mL. The reference range was not used to interpret this result as normal/abnormal . JING (test code = JING) Wool Fleece Sorter ID - MARTINA L Lab Interpretation Normal (test code = 71631-9) [facility] and [id number] 09:53:22 Test Item Value Reference Range Interpretation Comments Vitamin B12 (test 300 pg/mL 213-816 code = 2132-9) Folate (test code = 17.40 ng/mL See_Comment [Automa queenie 2284-8) message] The system which generated this result transmit queenie reference range : >=7.00. The reference range was not used to interpret this result as normal/abnormal . JING (test code = JING) Wool Fleece Sorter ID - MARTINA L Lab Interpretation Normal (test code = 38572-1) [facility]Free T4 If [id number] 09:53:22 Test Item Value Reference Range Interpretation Comments TSH (test code = 2.157 See_Comment [Automated 65461-3) message] The system which generated this result transmit queenie reference range : 0.350 - 4.940 uIU/mL. The reference range was not used to interpret this result as normal/abnormal . JING (test code = JING) Wool Fleece Sorter ID - MARTINA L Lab Interpretation Normal (test code = 79965-3) [facility] and [id number] 09:53:22 Test Item Value Reference Range Interpretation Comments Vitamin B12 (test 300 pg/mL 213-816 code = 2132-9) Folate (test code = 17.40 ng/mL See_Comment [Automa queenie 2284-8) message] The system which generated this result transmit queenie reference range : >=7.00. The reference range was not used to interpret this result as normal/abnormal . JING (test code = JING) Wool Fleece Sorter ID - MARTINA L Lab Interpretation Normal (test code = 13401-7) [facility]/Free T4 If [id number] 09:53:22 Test Item Value Reference Range Interpretation Comments TSH (test code = 2.157 See_Comment [Automated 34493-1) message] The system which generated this result transmit queenie reference range : 0.350 - 4.940 uIU/mL. The reference range was not used to interpret this result as normal/abnormal . JING (test code = JING) Wool Fleece Sorter ID - PIJOSE L Lab Interpretation Normal (test code = 88328-8) [facility] and [id number] 09:53:22 Test Item Value Reference Range Interpretation Comments Vitamin B12 (test 300 pg/mL 213-816 code = 2132-9) Folate (test code = 17.40 ng/mL See_Comment [Automa queenie 2284-8) message] The system which generated this result transmit queenie reference range : >=7.00. The reference range was not used to interpret this result as normal/abnormal . JING (test code = JING) Wool Fleece Sorter ID - MARTINA L Lab Interpretation Normal (test code = 09093-8) [facility]Free T4 If [id number] 09:53:22 Test Item Value Reference Range Interpretation Comments TSH (test code = 2.157 See_Comment [Automated 16483-3) message] The system which generated this result transmit queenie reference range : 0.350 - 4.940 uIU/mL. The reference range was not used to interpret this result as normal/abnormal . JING (test code = JING) Wool Fleece Sorter ID - RHETTAYA L Lab Interpretation Normal (test code = 33056-0) [facility] and [id number] 09:53:22 Test Item Value Reference Range Interpretation Comments Vitamin B12 (test 300 pg/mL 213-816 code = 2132-9) Folate (test code = 17.40 ng/mL See_Comment [Automa queenie 2284-8) message] The system which generated this result transmit queenie reference range : >=7.00. The reference range was not used to interpret this result as normal/abnormal . JING (test code = JING) Wool Fleece Sorter ID - PIAYA L Lab Interpretation Normal (test code = 34634-4) [facility]FREE T4 IF [id number] 09:53:22 Test Item Value Reference Range Interpretation Comments THYROID STIMULATING HORMONE 2.157 uIU/mL 0.350-4.940 (BEAKER) (test code = 772) Wool Fleece Sorter ID [place] MACK LVITAMIN B12 AND [id number] 09:53:22 Test Item Value Reference Range Interpretation Comments VITAMIN B12 300 pg/mL 213-816 (BEAKER) (test code = 774) FOLATE (BEAKER) 17.40 ng/mL See_Comment [Automated message] (test code = 362) The system which generated this result transmitted ref erence range: >=7.00. The reference range was not used to interpr et this result as normal/abnormal . Wool Fleece Sorter ID [place] MACK LC-Reactive [id number] 09:18:38 Test Item Value Reference Range Interpretation Comments CRP (test code = 676) 0.41 mg/dL 0.00-0.50 JING (test code = JING) Wool Fleece Sorter ID [place] MACK L Lab Interpretation (test Normal code = 60033-0) [facility]active [id number] 09:18:38 Test Item Value Reference Range Interpretation Comments CRP (test code = 676) 0.41 mg/dL 0.00-0.50 JING (test code = JING) [employer] Fleece Sorter ID - MARTINA L Lab Interpretation (test Normal code = 44305-3) [facility] [id number] 09:18:38 Test Item Value Reference Range Interpretation Comments CRP (test code = 676) 0.41 mg/dL 0.00-0.50 JING (test code = JING) [employer] Fleece Sorter ID - MARTINA L Lab Interpretation (test Normal code = 44360-9) [facility] [id number] 09:18:38 Test Item Value Reference Range Interpretation Comments CRP (test code = 676) 0.41 mg/dL 0.00-0.50 JING (test code = JING) [employer] Fleece Sorter ID - MARTINA L Lab Interpretation (test Normal code = 27617-4) [facility] [id number] 09:18:38 Test Item Value Reference Range Interpretation Comments C-REACTIVE PROTEIN (BEAKER) (test 0.41 mg/dL 0.00-0.50 code = 676) [employer]lee[employer] Sorter KINA MACK LPOCT-GLUCOSE [id number] 08:53:38 Test Item Value Reference Range Interpretation Comments POC-GLUCOSE METER 123 mg/dL 70-110 H : Notified RN/MD: (YUNIEL) (test code = TESTED AT [facility] 2122 7129) [facility], [address]: Wool Fleece Sorter/Techni tenisha ID = [id number] for Breanna RUTH Lipid [id number] 08:18:29 Test Item Value Reference Range Interpretation Comments Triglycerides (test 111 mg/dL code = 2571-8) Cholesterol (test code 114 mg/dL = 3-3) HDL (test code = 33 mg/dL 2084-9) LDL Calculated (test 59 mg/dL code = 45700-2) JING (test code = JING) Triglyceride Reference Range: Low Risk <150 Borderline 150-199 High Risk 200-499 Very High Risk >=500 Cholesterol Reference Range: Low Risk <200 Borderline 200-239 High Risk >240 HDL Cholesterol Reference Range: Low Risk >=60 High Risk <40 LDL Cholesterol Reference Range: Optimal <100 Near Optimal 100-129 Borderline 130-159 High 160-189 Very High >=190 Wool Fleece Sorter ID - MARTINA Pena [facility] [id number] 08:18:29 Test Item Value Reference Range Interpretation Comments Triglycerides (test 111 mg/dL code = 2571-8) Cholesterol (test code 114 mg/dL = 3-3) HDL (test code = 33 mg/dL 9) LDL Calculated (test 59 mg/dL code = 76845-3) JING (test code = JING) Triglyceride Reference Range: Low Risk <150 Borderline 150-199 High Risk 200-499 Very High Risk >=500 Cholesterol Reference Range: Low Risk <200 Borderline 200-239 High Risk >240 HDL Cholesterol Reference Range: Low Risk >=60 High Risk <40 LDL Cholesterol Reference Range: Optimal <100 Near Optimal 100-129 Borderline 130-159 High 160-189 Very High >=190 Wool Fleece Sorter ID - MARTINA L [facility] [id number] 08:18:29 Test Item Value Reference Range Interpretation Comments Triglycerides (test 111 mg/dL code = 2571-8) Cholesterol (test code 114 mg/dL = 3-3) HDL (test code = 33 mg/dL 2085-01) LDL Calculated (test 59 mg/dL code = 76037-1) JING (test code = JING) Triglyceride Reference Range: Low Risk <150 Borderline 150-199 High Risk 200-499 Very High Risk >=500 Cholesterol Reference Range: Low Risk <200 Borderline 200-239 High Risk >240 HDL Cholesterol Reference Range: Low Risk >=60 High Risk <40 LDL Cholesterol Reference Range: Optimal <100 Near Optimal 100-129 Borderline 130-159 High 160-189 Very High >=190 Wool Fleece Sorter ID - RHETTJOSE Jean [facility] [id number] 08:18:29 Test Item Value Reference Range Interpretation Comments Triglycerides (test 111 mg/dL code = 2571-8) Cholesterol (test code 114 mg/dL = 2093-3) HDL (test code = 33 mg/dL 2085-01) LDL Calculated (test 59 mg/dL code = 83970-5) JING (test code = JING) Triglyceride Reference Range: Low Risk <150 Borderline 150-199 High Risk 200-499 Very High Risk >=500 Cholesterol Reference Range: Low Risk <200 Borderline 200-239 High Risk >240 HDL Cholesterol Reference Range: Low Risk >=60 High Risk <40 LDL Cholesterol Reference Range: Optimal <100 Near Optimal 100-129 Borderline 130-159 High 160-189 Very High >=190 Wool Fleece Sorter KINA - MARTINA Pena [facility] [id number] 08:18:29 Test Item Value Reference Range Interpretation [...] Borderline 130-159 High 160-189 Very High >=190 Wool Fleece Sorter KINA - MARTINA [facility] metabolic [id number] 07:59:03 Test Item Value Reference Range Interpretation Comments Sodium (test code = 137 meq/L 909-217 1345-2) Potassium (test code 3.8 meq/L 3.5-5.1 = 2823-3) Chloride (test code = 106 meq/L 98-107 2075-0) CO2 (test code = 22 meq/L -2027-) BUN (test code = 19 mg/dL 12-14 3094-0) Creatinine (test code 1.04 mg/dL 0.57-1.25 = 2160-0) Glucose (test code = 106 mg/dL 70-105 H 2345-7) Calcium (test code = 8.8 mg/dL 8.4-10.2 39804-3) EGFR (test code = 52 mL/min/1.73 [place] [address]-7) NOT ACCURATE CREATININE CLEARANCE IN PREDICTING GLOMERULAR FILTRATION RATE . ESTIMATED GFR I S NOT APPLICABLE FOR DIALYSIS PATIENTS. JING (test code = JING) Wool Fleece Sorter [employer] L Lab Interpretation Abnormal (test code = 75365-2) [facility] metabolic [id number] 07:59:03 Test Item Value Reference Range Interpretation Comments Sodium (test code = 137 meq/L 547-626 7044-2) Potassium (test code 3.8 meq/L 3.5-5.1 = 2823-3) Chloride (test code = 106 meq/L 98-107 5-0) CO2 (test code = 22 meq/L 2027-) BUN (test code = 19 mg/dL 12-14 3094-0) Creatinine (test code 1.04 mg/dL 0.57-1.25 = 2160-0) Glucose (test code = 106 mg/dL 70-105 H 2345-7) Calcium (test code = 8.8 mg/dL 8.4-10.2 57670-1) EGFR (test code = 52 mL/min/1.73 [place] [address]-2) NOT ACCURATE CREATININE CLEARANCE IN PREDICTING GLOMERULAR FILTRATION RATE . ESTIMATED GFR I S NOT APPLICABLE FOR DIALYSIS PATIENTS. JING (test code = JING) [employer] Flee[employer] Sorter ID - PIAYA LOperator ID - PIAYA L Lab Interpretation Abnormal (test code = 26848-1) [facility] metabolic [id number] 07:59:03 Test Item Value Reference Range Interpretation Comments Sodium (test code = 137 meq/L 267-672 8242-2) Potassium (test code 3.8 meq/L 3.5-5.1 = 2823-3) Chloride (test code = 106 meq/L 98-107 2075-0) CO2 (test code = 22 meq/L 2028-01) BUN (test code = 19 mg/dL - 3094-0) Creatinine (test code 1.04 mg/dL 0.57-1.25 = 2160-0) Glucose (test code = 106 mg/dL 70-105 H 2345-7) Calcium (test code = 8.8 mg/dL 8.4-10.2 25941-3) EGFR (test code = 52 mL/min/1.[place] [address]-6) NOT ACCURATE CREATININE CLEARANCE IN PREDICTING GLOMERULAR FILTRATION RATE . ESTIMATED GFR I S NOT APPLICABLE FOR DIALYSIS PATIENTS. JING (test code = JING) Wool Fleece Sorter ID - MARTINA Samayoabella ID - PIJOSE L Lab Interpretation Abnormal (test code = 30893-4) [facility] metabolic [id number] 07:59:03 Test Item Value Reference Range Interpretation Comments Sodium (test code = 137 meq/L 256-979 4172-2) Potassium (test code 3.8 meq/L 3.5-5.1 = 2823-3) Chloride (test code = 106 meq/L 98-107 2075-0) CO2 (test code = 22 meq/L 2028-01) BUN (test code = 19 mg/dL 12-14 3094-0) Creatinine (test code 1.04 mg/dL 0.57-1.25 = 2160-0) Glucose (test code = 106 mg/dL 70-105 H 2345-7) Calcium (test code = 8.8 mg/dL 8.4-10.2 60366-3) EGFR (test code = 52 mL/min/1.[place] [address]-7) NOT ACCURATE CREATININE CLEARANCE IN PREDICTING GLOMERULAR FILTRATION RATE . ESTIMATED GFR I S NOT APPLICABLE FOR DIALYSIS PATIENTS. JING (test code = JING) Wool Fleece Sorter ID - MARTINA Grimm ID - MARTINA L Lab Interpretation Abnormal (test code = 53436-7) [facility] [id number] 07:59:03 Test Item Value Reference Range Interpretation [...] S NOT APPLICABLE FOR DIALYSIS PATIEN TS. Wool Fleece Sorter ID [place] MACK [id number] 06:48:32 Test Item Value Reference Range Interpretation Comments Magnesium (test code = 1.7 mg/dL 1.6-2.6 ) JING (test code = JING) [employer] Fleece Sorter ID - MARTINA L Lab Interpretation (test Normal code = 04328-7) [facility]2022-[facility] 06:48:32 Test Item Value Reference Range Interpretation Comments Magnesium (test code = 1.7 mg/dL 1.6-2.6 82319-2) JING (test code = JING) Wool Fleece Sorter ID - PIAYA L Lab Interpretation (test Normal code = 99431-2) [facility] 06:48:32 Test Item Value Reference Range Interpretation Comments Magnesium (test code = 1.7 mg/dL 1.6-2.6 23910-2) JING (test code = JING) Wool Fleece Sorter ID - PIAYA L Lab Interpretation (test Normal code = 83950-2) [facility] 06:48:32 Test Item Value Reference Range Interpretation Comments Magnesium (test code = 1.7 mg/dL 1.6-2.6 54058-8) JING (test code = JING) Wool Fleece Sorter ID - MARTINA L Lab Interpretation (test Normal code = 15231-6) [facility] 06:48:32 Test Item Value Reference Range Interpretation Comments MAGNESIUM (BEAKER) (test code = 1.7 mg/dL 1.6-2.6 627) Wool Fleece Sorter ID - MARTINA LCBC with platelet count + automated [id number] 06:04:12 Test Item Value Reference Range Interpretation Comments WBC (test code = 6690-2) 7.6 See_Comment [A utomated message] The system [employer] generated this result transmitted ref erence range: 3.5 - 10 .5 K/L. The refe rence range was not u sed to interpret this result as normal/abnor mal. RBC (test code = 789-8) 3.49 See_Comment L [Au tomated message] The system [employer] generated this result transmitted ref erence range: 3.93 - 5 .22 M/L. The refe rence range was not u sed to interpret this result as normal/abnor mal. MCHC (test code = 786-4) 32.7 See_Comment L [A utomated message] The system [employer] generated this result transmitted ref erence range: [...] code = 193 See_Comment [Aut omated message] 117-3) The system [employer] generated this result transmitted ref erence range: 150 - 45 0 K/CU MM. The referen ce range was not u sed to interpret this result as normal/abnor mal. MPV (test code = 12.3 fL 9.4-12.3 34744-3) nRBC (test code = 413) 0 See_Comment [Aut omated message] The system [employer] generated this result transmitted ref erence range: [...] See_Comment [Aut omated message] 670) The system [employer] generated this result transmitted ref erence range: 1.56 - 6 .13 K/L. The refe rence range was not u sed to interpret this result as normal/abnor mal. # Lymphs (test code = 2.95 See_Comment [Auto mated message] 414) The system [employer] generated this result transmitted ref erence range: 1.18 - 3 .74 K/L. The refe rence range was not u sed to interpret this result as normal/abnor mal. # Monos (test code = 0.56 See_Comment H [Autom ated message] 415) The system [employer] generated this result transmitted ref erence range: 0.24 - 0 .36 K/L. The refe rence range was not u sed to interpret this result as normal/abnor mal. # Eos (test code = 416) 0.14 See_Comment [Au tomated message] The system [employer] generated this result transmitted ref erence range: 0.04 - 0 .36 K/L. The refe rence range was not u sed to interpret this result as normal/abnor mal. # Baso (test code = 417) 0.06 See_Comment [A utomated message] The system [employer] generated this result transmitted ref erence range: 0.01 - 0 .08 K/L. The refe rence range was not u sed to interpret this result as normal/abnor mal. Immature 0 % 0-1 Granulocytes-Relative (test code = 2801) Lab Interpretation (test Abnormal code = 92365-2) [facility] with platelet count + automated [id number] 06:04:12 Test Item Value Reference Range Interpretation Comments WBC (test code = 6690-2) 7.6 See_Comment [A utomated message] The system [employer] generated this result transmitted ref erence range: 3.5 - 10 .5 K/L. The refe rence range was not u sed to interpret this result as normal/abnor mal. RBC (test code = 789-8) 3.49 See_Comment L [Au tomated message] The system [employer] generated this result transmitted ref erence range: 3.93 - 5 .22 M/L. The refe rence range was not u sed to interpret this result as normal/abnor mal. MCHC (test code = 786-4) 32.7 See_Comment L [A utomated message] The system [employer] generated this result transmitted ref erence range: [...] See_Comment [Aut omated message] 777-3) The system [employer] generated this result transmitted ref erence range: 150 - 45 0 K/CU MM. The referen ce range was not u sed to interpret this result as normal/abnor mal. MPV (test code = 12.3 fL 9.4-12.3 45186-8) nRBC (test code = 413) 0 See_Comment [Aut omated message] The system [employer] generated this result transmitted ref erence range: [...] See_Comment [Aut omated message] 670) The system [employer] generated this result transmitted ref erence range: 1.56 - 6 .13 K/L. The refe rence range was not u sed to interpret this result as normal/abnor mal. # Lymphs (test code = 2.95 See_Comment [Auto mated message] 414) The system [employer] generated this result transmitted ref erence range: 1.18 - 3 .74 K/L. The refe rence range was not u sed to interpret this result as normal/abnor mal. # Monos (test code = 0.56 See_Comment H [Autom ated message] 415) The system [employer] generated this result transmitted ref erence range: 0.24 - 0 .36 K/L. The refe rence range was not u sed to interpret this result as normal/abnor mal. # Eos (test code = 416) 0.14 See_Comment [Au tomated message] The system [employer] generated this result transmitted ref erence range: 0.04 - 0 .36 K/L. The refe rence range was not u sed to interpret this result as normal/abnor mal. # Baso (test code = 417) 0.06 See_Comment [A utomated message] The system [employer] generated this result transmitted ref erence range: 0.01 - 0 .08 K/L. The refe rence range was not u sed to interpret this result as normal/abnor mal. Immature 0 % 0-1 Granulocytes-Relative (test code = 2801) Lab Interpretation (test Abnormal code = 18161-4) [facility] with platelet count + automated [id number] 06:04:12 Test Item Value Reference Range Interpretation Comments WBC (test code = 6690-2) 7.6 See_Comment [A utomated message] The system [employer] generated this result transmitted ref erence range: 3.5 - 10 .5 K/L. The refe rence range was not u sed to interpret this result as normal/abnor mal. RBC (test code = 789-8) 3.49 See_Comment L [Au tomated message] The system [employer] generated this result transmitted ref erence range: 3.93 - 5 .22 M/L. The refe rence range was not u sed to interpret this result as normal/abnor mal. MCHC (test code = 786-4) 32.7 See_Comment L [A utomated message] The system [employer] generated this result transmitted ref erence range: [...] See_Comment [Aut omated message] 777-3) The system [employer] generated this result transmitted ref erence range: 150 - 45 0 K/CU MM. The referen ce range was not u sed to interpret this result as normal/abnor mal. MPV (test code = 12.3 fL 9.4-12.3 36913-4) nRBC (test code = 413) 0 See_Comment [Aut omated message] The system [employer] generated this result transmitted ref erence range: [...] See_Comment [Aut omated message] 670) The system [employer] generated this result transmitted ref erence range: 1.56 - 6 .13 K/L. The refe rence range was not u sed to interpret this result as normal/abnor mal. # Lymphs (test code = 2.95 See_Comment [Auto mated message] 414) The system [employer] generated this result transmitted ref erence range: 1.18 - 3 .74 K/L. The refe rence range was not u sed to interpret this result as normal/abnor mal. # Monos (test code = 0.56 See_Comment H [Autom ated message] 415) The system [employer] generated this result transmitted ref erence range: 0.24 - 0 .36 K/L. The refe rence range was not u sed to interpret this result as normal/abnor mal. # Eos (test code = 416) 0.14 See_Comment [Au tomated message] The system [employer] generated this result transmitted ref erence range: 0.04 - 0 .36 K/L. The refe rence range was not u sed to interpret this result as normal/abnor mal. # Baso (test code = 417) 0.06 See_Comment [A utomated message] The system [employer] generated this result transmitted ref erence range: 0.01 - 0 .08 K/L. The refe rence range was not u sed to interpret this result as normal/abnor mal. Immature 0 % 0-1 Granulocytes-Relative (test code = 2801) Lab Interpretation (test Abnormal code = 65598-9) [facility] with platelet count + automated [id number] 06:04:12 Test Item Value Reference Range Interpretation Comments WBC (test code = 6690-2) 7.6 See_Comment [A utomated message] The system [employer] generated this result transmitted ref erence range: 3.5 - 10 .5 K/L. The refe rence range was not u sed to interpret this result as normal/abnor mal. RBC (test code = 789-8) 3.49 See_Comment L [Au tomated message] The system [employer] generated this result transmitted ref erence range: 3.93 - 5 .22 M/L. The refe rence range was not u sed to interpret this result as normal/abnor mal. MCHC (test code = 786-4) 32.7 See_Comment L [A utomated message] The system [employer] generated this result transmitted ref erence range: [...] See_Comment [Aut omated message] 777-3) The system [employer] generated this result transmitted ref erence range: 150 - 45 0 K/CU MM. The referen ce range was not u sed to interpret this result as normal/abnor mal. MPV (test code = 12.3 fL 9.4-12.3 25177-0) nRBC (test code = 413) 0 See_Comment [Aut omated message] The system [employer] generated this result transmitted ref erence range: [...] See_Comment [Aut omated message] 670) The system [employer] generated this result transmitted ref erence range: 1.56 - 6 .13 K/L. The refe rence range was not u sed to interpret this result as normal/abnor mal. # Lymphs (test code = 2.95 See_Comment [Auto mated message] 414) The system [employer] generated this result transmitted ref erence range: 1.18 - 3 .74 K/L. The refe rence range was not u sed to interpret this result as normal/abnor mal. # Monos (test code = 0.56 See_Comment H [Autom ated message] 415) The system [employer] generated this result transmitted ref erence range: 0.24 - 0 .36 K/L. The refe rence range was not u sed to interpret this result as normal/abnor mal. # Eos (test code = 416) 0.14 See_Comment [Au tomated message] The system [employer] generated this result transmitted ref erence range: 0.04 - 0 .36 K/L. The refe rence range was not u sed to interpret this result as normal/abnor mal. # Baso (test code = 417) 0.06 See_Comment [A utomated message] The system [employer] generated this result transmitted ref erence range: 0.01 - 0 .08 K/L. The refe rence range was not u sed to interpret this result as normal/abnor mal. Immature 0 % 0-1 Granulocytes-Relative (test code = 2801) Lab Interpretation (test Abnormal code = 08810-7) [facility] W/PLT COUNT & AUTO [id number] 06:04:12 Test Item Value Reference Range Interpretation [...] PERCENT (BEAKER) (test code = 2801) POCT-GLUCOSE [id number] 01:14:17 Test Item Value Reference Range Interpretation Comments POC-GLUCOSE METER 107 mg/dL 70-110 : [facility] (test code = [place], 1538) [address]: Wool Fleece Sorter/Techni tenisha ID = [id number] for Sandie Anderson [id number] 10:54:48 Test Item Value Reference Range Interpretation Comments Right (test code = Type C Peak is on Left Right) Left (test code = Left) Type B Curve Flat [facility]
[2022-04-11] MEDS ORDERED: NA CHLORIDE 0.9% 1,000 ML ONE (12:24)
[2022-04-11 12:29] LABS: Hematocrit 34.8 % (36.0-45.0); Lymphocytes % 27.6 % (15.3-44.8); MPV 9.7 fL (7.6-11.3)
[2022-04-11 12:33] LABS: Protime INR 0.95
--- NOTE | 2022-04-11 12:36 | RAD REPORT ---
EXAM DESCRIPTION: RAD - Chest Single View - 04/11/2022 12:25 pm CLINICAL HISTORY: COUGH Chest pain. COMPARISON: Chest Single View dated 05/27/2021; Chest Single View dated 05/22/2021; Chest Single View dated 01/04/2020; Chest Single View dated 12/24/2019 FINDINGS: Portable technique limits examination quality. The lungs are grossly clear. The heart is normal in size. No displaced fractures. IMPRESSION: No acute intrathoracic process suspected.
[2022-04-11 12:43] LABS: Albumin 3.7 g/dL (3.4-5.0); Bilirubin Direct 0.1 mg/dL (0-0.2); Bilirubin Total 0.4 mg/dL (0.2-1.0); Magnesium 2.2 mg/dL (1.8-2.4); Potassium 3.9 mmol/L (3.5-5.1); Protein, Total 7.5 g/dL (6.4-8.2); Troponin High Sensitivity 7.1 pg/mL (<58.9)
[2022-04-11 13:31] LABS: Urine Blood Negative (Negative); Urine Glucose 3+ (Negative); Urine Protein Negative (Negative); Urine Specific Gravity 1.015 (1.005-1.030)
[2022-04-11 14:38] LABS: SARS-COV-2 RT PCR NEGATIVE (NEGATIVE)
[2022-04-11] MEDS ORDERED: FOLIC ACID 5 MG/ML VIAL ONE (15:03)
--- NOTE | 2022-04-11 15:09 | RAD REPORT ---
EXAM DESCRIPTION: US - CP - 04/11/2022 2:44 pm CLINICAL HISTORY: DIZZINESS Headache, drowsiness, dizziness COMPARISON: Head C Spine Mpr Wo Con dated 03/18/2022; Carotid Artery Bilateral dated 05/22/2021; MRA Neck W/Wo Cont dated 05/23/2021 TECHNIQUE: Real-time sonographic evaluation of both carotid systems was performed. Doppler interroga tion was performed with waveform tracing bilaterally. FINDINGS: Normal high resistance waveforms are noted in both external carotid arteries. The common c arotid arteries and internal carotid arteries show normal low resistance waveforms. Large soft plaque is present involving the right carotid bulb. This likely results in 80% stenosis ba sed on NASCET criteria. There is significant turbulent blood flow also present in the proximal right ICA. Mild soft plaquing seen left carotid bulb resulting in mild stenosis estimated at less than 50%. Antegrade flow seen in both vertebral arteries. IMPRESSION: At least 80% stenosis suspected caused by soft plaque right carotid bulb. There is significant turbulent blood flow seen in the proximal right ICA with mild elevation of peak systolic velocity.
--- NOTE | 2022-04-11 16:35 | RAD REPORT ---
EXAM DESCRIPTION: CT - Ct Stroke Brain Wo Cont - 04/11/2022 4:26 pm CLINICAL HISTORY: Neuro deficit, acute, stroke suspected Headache, CVA COMPARISON: Head Brain Wo Cont dated 05/27/2021; Head Brain Wo Cont dated 05/22/2021 TECHNIQUE: All CT scans are performed using dose optimization technique as appropriate and may inclu de automated exposure control or mA/KV adjustment according to patient size. FINDINGS: No intracranial hemorrhage, hydrocephalus or extra-axial fluid collection.Mild chronic per iventricular microvascular ischemic changes.No areas of brain edema or evidence of midline shift. The paranasal sinuses and mastoids are clear. The calvarium is intact. IMPRESSION: No acute intracranial abnormality. If there is continued clinical concern for CVA, MR imaging of the brain would be recommended. The findings were discussed with doctor Craven in the emergency room on 04/11/2022 at 4:30 p.m. by telephone.
--- NOTE | 2022-04-11 16:37 | ER ---
Nurse's Notes [facility] Name: Yadira Land Age: 71 yrs Sex: Female : 1950 Arrival Date: 04/11/2022 Time: 10:47 Bed 16 Private MD: Stephen Martinez M Diagnosis: Cerebral infarction, unspecified-sub acute right cva;Type 1 diabetes mellitus with hyperglycemia;Occlusion and stenosis of right carotid artery-80% right ICA;Other acute kidney failure-CHRONIC Presentation: 04/11 11:11 Chief complaint: Patient states: Sent in by PCP, BP was low, blood sugar is high. ll1 Feeling weak, dizzy, tingling since yesterday. Coronavirus screen: Vaccine status: Patient reports receiving the 2nd dose of the covid vaccine. Client denies travel out of the [place] in the last 14 days. fatigue, Client presents with at least one sign or symptom that may indicate coronavirus-19. Standard/surgical mask placed on the client. Ebola Screen: Patient denies travel to an Ebola-affected area in the 21 days before illness onset. Initial Sepsis Screen: Does the patient meet any 2 criteria? No. Patient's initial sepsis screen is negative. Does the patient have a suspected source of infection? No. Patient's initial sepsis screen is negative. Risk Assessment: Do you want to hurt yourself or someone else? Patient reports no desire to harm self or others. Onset of symptoms was April 10, 2022. 11:11 Method Of Arrival: Wheelchair ll1 11:11 Acuity: KARSTEN 3 ll1 Triage Assessment: 11:14 General: Appears uncomfortable, ill, Behavior is cooperative, appropriate for age. ll1 Pain: Complains of pain in head Quality of pain is described as aching. Neuro: Reports dizziness, headache paresthesias weakness. Cardiovascular: No deficits noted. Respiratory: No deficits noted. GI: Reports nausea. Historical: - Allergies: 11:13 No Known Allergies; ll1 - PMHx: 11:13 Diabetes - NIDDM; Hypertension; ll1 - PSHx: 11:13 None; ll1 - Immunization history:: Client reports receiving the 2nd dose of the Covid vaccine. - Social history:: Smoking status: Patient denies any tobacco usage or history of. Screenin:13 Abuse screen: Denies threats or abuse. Nutritional screening: No deficits noted. kr3 Tuberculosis screening: No symptoms or risk factors identified. Fall Risk Fall in past 12 months (25 points). IV access (20 points). Total Rodriguez Fall Scale indicates High Risk Score (45 or more points). Fall prevention measures have been instituted. Side Rails Up X 2 Placed Close to Nursing Station Frequent Obs/Assessments Occuring Family Present and informed to notify staff if the need to leave the bedside As available patient and family educated on Fall Prevention Program and Strategies. Assessment: 12:15 General: Appears distressed, uncomfortable, Behavior is calm, cooperative, appropriate kr3 for age. 12:15 Pain: Denies pain. kr3 12:15 Neuro: Reports tingling in left arm. Cardiovascular: Reports lightheadedness, Rhythm is kr3 sinus rhythm. 13:10 Reassessment: No changes from previously documented assessment. Patient and/or family kr3 updated on plan of care and expected duration. Pain level reassessed. Patient is alert, oriented x 3, equal unlabored respirations, skin warm/dry/pink. 13:54 Reassessment: Dr. Iraheta at bedside assessing pt. jl7 14:10 Reassessment: No changes from previously documented assessment. Patient and/or family kr3 updated on plan of care and expected duration. Pain level reassessed. Patient is alert, oriented x 3, equal unlabored respirations, skin warm/dry/pink. 15:10 Reassessment: No changes from previously documented assessment. Patient and/or family kr3 updated on plan of care and expected duration. Pain level reassessed. Patient is alert, oriented x 3, equal unlabored respirations, skin warm/dry/pink. 16:15 Reassessment: No changes from previously documented assessment. Patient and/or family kr3 updated on plan of care and expected duration. Pain level reassessed. Patient is alert, oriented x 3, equal unlabored respirations, skin warm/dry/pink. 17:10 Reassessment: No changes from previously documented assessment. Patient and/or family kr3 updated on plan of care and expected duration. Pain level reassessed. Patient is alert, oriented x 3, equal unlabored respirations, skin warm/dry/pink. 18:15 Reassessment: No changes from previously documented assessment. Patient and/or family kr3 updated on plan of care and expected duration. Pain level reassessed. Patient is alert, oriented x 3, equal unlabored respirations, skin warm/dry/pink. 19:28 General: Appears in no apparent distress. uncomfortable, ill, Behavior is cooperative, aa9 appropriate for age, anxious. Pain: Complains of pain in head Pain currently is 3 out of 10 on a pain scale. Neuro: Level of Consciousness is awake, alert, obeys commands, Oriented to person, place, time, situation, Cokeman are weak on left Weakness Gait is unsteady, Speech is normal, Facial droop on left, Pupils are PERRLA, Intact Reports headache weakness Denies numbness. Cardiovascular: Denies chest pain, Patient's skin is warm and dry. Respiratory: Airway is patent Respiratory effort is even, unlabored. GI: No signs and/or symptoms were reported involving the gastrointestinal system. Derm: Skin is intact, with poor turgor. 19:28 Reassessment: pt aware of need for transfer, family aware of need for transfer, denies aa9 concerns. 19:48 Reassessment: attempted to call report, on hold for 10 minutes. aa9 20:26 Reassessment: report provided to Monika KO. aa9 20:55 Reassessment: [facility] bedside, report provided to [employer] vice [employer], pt aa9 stable, understands need for transfer, denies concerns. Vital Signs: 11:11 BP 115 / 57; Pulse 91; Resp 16; Temp 97.4; Pulse Ox 99% ; Weight 72.57 kg; Height 5 ft. ll1 4 in. (162.56 cm); Pain 6/10; 12:15 BP 118 / 53; Pulse 79; Resp 16; Pulse Ox 100% ; kr3 13:15 BP 120 / 75; Pulse 80; Resp 16; Pulse Ox 99% on R/A; kr3 14:10 BP 132 / 56; Pulse 75; Resp 16; Pulse Ox 100% on R/A; kr3 15:15 BP 135 / 71; Pulse 76; Resp 16; Pulse Ox 99% on R/A; kr3 16:10 BP 134 / 74; Pulse 77; Resp 16; Pulse Ox 100% on R/A; kr3 18:56 BP 137 / 68; Pulse 82; Resp 16; Pulse Ox 100% on R/A; kr3 19:29 BP 136 / 62; Pulse 83; Resp 18 S; Pulse Ox 100% on R/A; aa9 20:00 BP 159 / 77; Pulse 87; Resp 18 S; Pulse Ox 100% on R/A; aa9 20:59 BP 130 / 69; Pulse 88; Resp 17 S; Pulse Ox 100% on R/A; aa9 11:11 Body Mass Index 27.46 (72.57 kg, 162.56 cm) ll1 NIH Stroke Scale Scores: 16:23 NIHSS Score: 1 kirit ED Course: 10:47 Patient arrived in ED. am2 10:48 Stephen Martinez MD is Private Physician. am2 11:13 Triage completed. ll1 11:14 Arm band placed on. ll1 11:15 Bed in low position. Call light in reach. Side rails up X 1. kr3 11:33 Jorge Craven MD is Attending Physician. kirit 12:19 Indy Albright, MAIKEL is Primary Nurse. kr3 12:27 XRAY Chest (1 view) In Process Unspecified. EDMS 12:36 EKG done, by ED staff, reviewed by Jorge Craven MD. em1 12:40 Inserted saline lock: 20 gauge in left antecubital area, using aseptic technique. Blood kr3 collected. 14:46 US Carotid Artery Bilateral In Process Unspecified. EDMS 16:28 CT Stroke Brain w/o Contrast In Process Unspecified. EDMS 16:31 initiated transfer to [facility]. bd 17:06 Brain Wo Cont In Process Unspecified. EDMS 18:48 administrative approval given by Ramirez Friend/ patient has been accepted to [address] to [address] 2234/ Dr. Kerr accepted the patient in transfer/report ot be called to [phone]. 19:48 No provider procedures requiring assistance completed. aa9 20:57 Patient transferred, IV remains in place. aa9 Administered Medications: 12:31 Drug: NS 0.9% 1000 ml Route: IV; Rate: 125 ml/hr; Site: left antecubital; kr3 14:54 Drug: NS 0.9% 1000 ml Route: IV; Rate: 1 bolus; Site: left antecubital; kr3 15:04 Drug: foLIC Acid 1 mg Route: IVPB; Site: left antecubital; kr3 19:06 Follow up: Response: No adverse reaction; IV Status: Completed infusion; IV Intake: kr3 0.2ml 17:24 Not Given (patient has already taken today): PlaVIX (clopidogrel) 75 mg PO once kr3 17:24 Not Given (paitent has already taken todayy): Lipitor (atorvastatin) 40 mg PO once kr3 17:25 Drug: Insulin Regular Human 8 units {Co-Signature: tp1 (Maureen Hanna RN).} Route: kr3 IVP; Site: left upper arm; 19:06 Follow up: Response: No adverse reaction kr3 17:25 Not Given (patient has already taken todayy): Aspirin 81 mg PO once kr3 Medication: 19:49 VIS not applicable for this client. aa9 Intake: 19:06 IV: 0ml; Total: 0ml. kr3 Outcome: 16:37 ER care complete, transfer ordered by MD. kirit 20:26 Condition: stable aa9 20:52 Instructed on the need for transfer. aa9 20:57 Transferred by ground EMS to other acute care facility: [facility]. Transfer form completed. aa9 21:00 Patient left the ED. aa9 NIH Stroke Scale - NIH Stroke Score Date: 04/11/2022 Time: 16:23 Total Score = 1 1a. Level of Consciousness (LOC) - 0(Alert) 1b. Level of Consciousness (LOC) (Month \T\ Age) - 0(Both) 1c. LOC Commands (Open \T\ Closes Eyes/Education Director) - 0(Both) 2. Best Gaze (Lateral Gaze Paresis) - 0(Normal) 3. Visual Field Loss - 0(No visual loss) 4. Facial Palsy - 1(Minor Paralysis) 5a. Left Arm: Motor (10-second hold) - 0(No drift) 5b. Right Arm: Motor (10-second hold) - 0(No drift) 6a. Left Leg: Motor (5-second hold - always test supine) - 0(No drift) 6b. Right Leg: Motor (5-second hold - always test supine) - 0(No drift) 7. Limb Ataxia (finger/nose \T\ heel/glass - test with eyes open) - 0(Absent) 8. Sensory Loss (pinprick arms/legs/face) - 0(Normal) 9. Best Language: Aphasia (description/naming/reading) - 0(No aphasia) 10. Dysarthria (speech clarity - read or repeat words) - 0(Normal) 11. Extinction and Inattention (visual/tactile/auditory/spatial/personal) - 0(No abnormality) Initials: kirit Antony: Dispatcher [employer] EDMS Malena Lai Corey, MD MD cha Martinez, Christian em1 Clayton Cheung, RN RN jl7 Nazia Hampton am2 Caden Kohler 2 Caren Mullins RN RN ll1 Kendra Birmingham RN RN aa9 Indy Albright RN RN kr3 Maureen Hanna RN tp1 Corrections: (The following items were deleted from the chart) 14:07 14:06 Reassessment: kr3 kr3 14:07 13:05 General: Appears distressed, uncomfortable, Behavior is calm, kr3 cooperative, appropriate for age, kr3 14:10 14:08 Neuro: Reports tingling in left arm. kr3 kr3 14:10 14:08 Cardiovascular: Reports lightheadedness, Rhythm is sinus rhythm kr3 kr3 16:03 16:01 EENT: kr3 kr3 19:59 19:58 Reassessment: attempted to call report aa9 aa9 20:02 19:48 Reassessment: attempted to call report aa9 aa9
--- NOTE | 2022-04-11 16:37 | EDPHYS ---
Physician Documentation [facility] Name: Yadira Land Age: 71 yrs Sex: Female : 1950 Arrival Date: 04/11/2022 Time: 10:47 Bed 16 Private MD: Stephen Martinez M ED Physician Jorge Craven HPI: 04/11 16:22 This 71 yrs old Female presents to ER via Wheelchair with complaints of Blood kirit Pressure Problem - low, High Blood Sugar, Dizziness, General Weakness. Historical: - Allergies: 11:13 No Known Allergies; ll1 - PMHx: 11:13 Diabetes - NIDDM; Hypertension; ll1 - PSHx: 11:13 None; ll1 - Immunization history:: Client reports receiving the 2nd dose of the Covid vaccine. - Social history:: Smoking status: Patient denies any tobacco usage or history of. ROS: 16:23 Constitutional: Negative for fever, chills, and weight loss, Eyes: Negative for injury, kirit pain, redness, and discharge, ENT: Negative for injury, pain, and discharge, Neck: Negative for injury, pain, and swelling, Cardiovascular: Negative for chest pain, palpitations, and edema, Respiratory: Negative for shortness of breath, cough, wheezing, and pleuritic chest pain, Abdomen/GI: Negative for abdominal pain, nausea, vomiting, diarrhea, and constipation, Back: Negative for injury and pain, : Negative for injury, bleeding, discharge, and swelling, MS/Extremity: Negative for injury and deformity, Skin: Negative for injury, rash, and discoloration, Psych: Negative for depression, anxiety, suicide ideation, homicidal ideation, and hallucinations, Allergy/Immunology: Negative for hives, rash, and allergies, Endocrine: Negative for neck swelling, polydipsia, polyuria, polyphagia, and marked weight changes, Hematologic/Lymphatic: Negative for swollen nodes, abnormal bleeding, and unusual bruising. 16:23 Neuro: Positive for dizziness, weakness, of the left arm and left leg. 16:28 Neuro: Positive for left face, upper and lower. kirit Exam: 16:23 Constitutional: This is a well developed, well nourished patient who is awake, alert, kirit and in no acute distress. Head/Face: Normocephalic, atraumatic. Eyes: Pupils equal round and reactive to light, extra-ocular motions intact. Lids and lashes normal. Conjunctiva and sclera are non-icteric and not injected. Cornea within normal limits. Periorbital areas with no swelling, redness, or edema. ENT: Nares patent. No nasal discharge, no septal abnormalities noted. Tympanic membranes are normal and external auditory canals are clear. Oropharynx with no redness, swelling, or masses, exudates, or evidence of obstruction, uvula midline. Mucous membranes moist. Neck: Trachea midline, no thyromegaly or masses palpated, and no cervical lymphadenopathy. Supple, full range of motion without nuchal rigidity, or vertebral point tenderness. No Meningismus. Chest/axilla: Normal chest wall appearance and motion. Nontender with no deformity. No lesions are appreciated. Cardiovascular: Regular rate and rhythm with a normal S1 and S2. No gallops, murmurs, or rubs. Normal PMI, no JVD. No pulse deficits. Respiratory: Lungs have equal breath sounds bilaterally, clear to auscultation and percussion. No rales, rhonchi or wheezes noted. No increased work of breathing, no retractions or nasal flaring. Abdomen/GI: Soft, non-tender, with normal bowel sounds. No distension or tympany. No guarding or rebound. No evidence of tenderness throughout. Back: No spinal tenderness. No costovertebral tenderness. Full range of motion. Female : Normal external genitalia. Skin: Warm, dry with normal turgor. Normal color with no rashes, no lesions, and no evidence of cellulitis. MS/ Extremity: Pulses equal, no cyanosis. Neurovascular intact. Full, normal range of motion. Psych: Awake, alert, with orientation to person, place and time. Behavior, mood, and affect are within normal limits. 16:23 ECG was reviewed by the Attending Physician. 16:28 Neuro: Orientation: is normal, appropriate for stated age, no acute changes, Mentation: kirit is normal, appropriate for stated age, no acute changes, Cranial nerves: facial droop noted on left, with forehead spared. Cerebellar function: is grossly normal, is grossly normal based on the patient's age, Motor: moves all fours, strength is normal, Sensation: is normal, no obvious gross deficits, appropriate no acute changes, Gait: not tested. seizure activity, is not displayed by the patient. 16:31 Radiologist reports: negative for acute changes kirit Vital Signs: 11:11 BP 115 / 57; Pulse 91; Resp 16; Temp 97.4; Pulse Ox 99% ; Weight 72.57 kg; Height 5 ft. ll1 4 in. (162.56 cm); Pain 6/10; 12:15 BP 118 / 53; Pulse 79; Resp 16; Pulse Ox 100% ; kr3 13:15 BP 120 / 75; Pulse 80; Resp 16; Pulse Ox 99% on R/A; kr3 14:10 BP 132 / 56; Pulse 75; Resp 16; Pulse Ox 100% on R/A; kr3 15:15 BP 135 / 71; Pulse 76; Resp 16; Pulse Ox 99% on R/A; kr3 16:10 BP 134 / 74; Pulse 77; Resp 16; Pulse Ox 100% on R/A; kr3 18:56 BP 137 / 68; Pulse 82; Resp 16; Pulse Ox 100% on R/A; kr3 19:29 BP 136 / 62; Pulse 83; Resp 18 S; Pulse Ox 100% on R/A; aa9 20:00 BP 159 / 77; Pulse 87; Resp 18 S; Pulse Ox 100% on R/A; aa9 20:59 BP 130 / 69; Pulse 88; Resp 17 S; Pulse Ox 100% on R/A; aa9 11:11 Body Mass Index 27.46 (72.57 kg, 162.56 cm) ll1 NIH Stroke Scale Scores: 16:23 NIHSS Score: 1 kirit MDM: 11:33 Patient medically screened. kirit 16:25 ED course: onset of left arm and leg weakness and numbness was 1230 am this morning, kirit and left facial weakness this morning at 8 am. 16:29 Differential diagnosis: CVA, TIA, Dementia, paralysis, metabolic disorder. Data [facility] reviewed: vital signs, nurses notes, lab test result(s), EKG, radiologic studies, CT scan, MRI, plain films. Data interpreted: desk monitor: rate is 75 beats/min, rhythm is regular, Pulse oximetry: on room air is 100 %. Test interpretation: by ED physician or midlevel provider: ECG, plain radiologic studies. Counseling: I had a detailed discussion with the patient and/or guardian regarding: the historical points, exam findings, and any diagnostic results supporting the discharge/admit diagnosis, lab results, radiology results, the need to transfer to another facility, for higher level of care, [facility] does not immediately have the required specialist. 04/11 11:36 Order name: Basic Metabolic Panel; Complete Time: 14:04 [facility] 04/11 11:36 Order name: CBC with Diff; Complete Time: 14:04 [facility] 04/11 11:36 Order name: LFT's; Complete Time: 14:04 [facility] 04/11 11:36 Order name: Magnesium; Complete Time: 14:04 [facility] 04/11 11:36 Order name: NT PRO-BNP; Complete Time: 14:04 [facility] 04/11 11:36 Order name: PT-INR; Complete Time: 14:04 [facility] 04/11 11:36 Order name: Troponin HS; Complete Time: 14:04 [facility] 04/11 11:36 Order name: XRAY Chest (1 view); Complete Time: 14:04 [facility] 04/11 11:36 Order name: Lipase; Complete Time: 14:04 [facility] 04/11 13:32 Order name: Urine Dipstick-Ancillary; Complete Time: 14:04 [facility] 04/11 13:35 Order name: COVID-19/FLU A+B/RSV; Complete Time: 15:14 [facility] 04/11 14:05 Order name: MRI Stroke Protocol [facility] 04/11 11:36 Order name: EKG; Complete Time: 11:37 [facility] 04/11 11:36 Order name: Cardiac monitoring; Complete Time: 12:00 [facility] 04/11 11:36 Order name: EKG - Nurse/Tech; Complete Time: 12:36 [facility] 04/11 11:36 Order name: IV Saline Lock; Complete Time: 12:19 [facility] 04/11 14:05 Order name: US Carotid Artery Bilateral; Complete Time: 15:14 [facility] 04/11 14:50 Order name: Brain Wo Cont; Complete Time: 17:27 [facility] 04/11 15:58 Order name: CT Stroke Brain w/o Contrast; Complete Time: 16:37 [facility] 04/11 11:36 Order name: Labs collected and sent; Complete Time: 12:19 [facility] 04/11 11:36 Order name: O2 Per Protocol; Complete Time: 12:19 [facility] 04/11 11:36 Order name: O2 Sat Monitoring; Complete Time: 12:19 [facility] 04/11 11:36 Order name: Urine Dipstick-Ancillary (obtain specimen); Complete Time: 15:25 kirit EC:23 Rate is 81 beats/min. Rhythm is regular. QRS [place] is Normal. MT interval is normal. QRS kirit interval is normal. QT interval is normal. No Q waves. T waves are Normal. Clinical impression: Normal ECG and No evidence of ischemia. Interpreted by me. Reviewed by me. Administered Medications: 12:31 Drug: NS 0.9% 1000 ml Route: IV; Rate: 125 ml/hr; Site: left antecubital; kr3 14:54 Drug: NS 0.9% 1000 ml Route: IV; Rate: 1 bolus; Site: left antecubital; kr3 15:04 Drug: foLIC Acid 1 mg Route: IVPB; Site: left antecubital; kr3 19:06 Follow up: Response: No adverse reaction; IV Status: Completed infusion; IV Intake: kr3 0.2ml 17:24 Not Given (patient has already taken today): PlaVIX (clopidogrel) 75 mg PO once kr3 17:24 Not Given (paitent has already taken todayy): Lipitor (atorvastatin) 40 mg PO once kr3 17:25 Drug: Insulin Regular Human 8 units {Co-Signature: tp1 (Maureen Hanna RN).} Route: kr3 IVP; Site: left upper arm; 19:06 Follow up: Response: No adverse reaction kr3 17:25 Not Given (patient has already taken todayy): Aspirin 81 mg PO once kr3 Disposition Summary: 04/11/22 16:37 Transfer Ordered Transfer Location: [facility] kirit Reason: Higher level of care kirit Condition: Fair kirit Problem: new kirit Symptoms: have improved kirit Accepting Physician: to neuro [facility](04/11/22 21:00) aa9 Diagnosis - Cerebral infarction, unspecified - sub acute right cva kirit - Type 1 diabetes mellitus with hyperglycemia kirit - Occlusion and stenosis of right carotid artery - 80% right ICA kirit - Other acute kidney failure - CHRONIC kirit Forms: - Medication Reconciliation Form kirit - SBAR form kirit NIH Stroke Scale - NIH Stroke Score Date: 04/11/2022 Time: 16:23 Total Score = 1 1a. Level of Consciousness (LOC) - 0(Alert) 1b. Level of Consciousness (LOC) (Month \T\ Age) - 0(Both) 1c. LOC Commands (Open \T\ Closes Eyes/Satellite Dish Technician) - 0(Both) 2. Best Gaze (Lateral Gaze Paresis) - 0(Normal) 3. Visual Field Loss - 0(No visual loss) 4. Facial Palsy - 1(Minor Paralysis) 5a. Left Arm: Motor (10-second hold) - 0(No drift) 5b. Right Arm: Motor (10-second hold) - 0(No drift) 6a. Left Leg: Motor (5-second hold - always test supine) - 0(No drift) 6b. Right Leg: Motor (5-second hold - always test supine) - 0(No drift) 7. Limb Ataxia (finger/nose \T\ heel/glass - test with eyes open) - 0(Absent) 8. Sensory Loss (pinprick arms/legs/face) - 0(Normal) 9. Best Language: Aphasia (description/naming/reading) - 0(No aphasia) 10. Dysarthria (speech clarity - read or repeat words) - 0(Normal) 11. Extinction and Inattention (visual/tactile/auditory/spatial/personal) - 0(No abnormality) Initials: kirit Signatures: Dispatcher [employer] EDMS Jorge Craven MD MD cha Lewis, Lynsay, RN RN ll1 Kendra Birmingham, MAIKEL RN aa9 Indy Albright RN RN kr3 Maureen Hanna RN tp1 Corrections: (The following items were deleted from the chart) 12:40 11:36 SARS-COV-2 Antigen Rapid+I.LAB.BRZ ordered. EDMS EDMS 13:34 12:34 SARS-COV-2 RT PCR+MOL.LAB.BRZ ordered. EDMS EDMS 14:49 14:09 Stroke Protocol ordered. EDMS EDMS 14:50 14:09 Brain With Cont ordered. EDMS EDMS 21:00 16:37 to neuro , [facility] kirit johnson
[2022-04-11] MEDS ORDERED: CLOPIDOGREL 75 MG TABLET ONE (17:12)
[2022-04-11] MEDS ORDERED: ASPIRIN EC 81 MG TAB PO ONE (17:12)
[2022-04-11] MEDS ORDERED: INSULIN -REGULAR HUMAN 50 UNIT/0.5 ML ML ONE (17:13)
[2022-04-11] MEDS ORDERED: ATORVASTATIN 20 MG TAB ONE (17:13)
--- NOTE | 2022-04-11 17:24 | RAD REPORT ---
EXAM DESCRIPTION: MRI - Brain Wo Cont - 04/11/2022 5:11 pm CLINICAL HISTORY: r/o stroke Headache, drowsiness, CVA symptomology COMPARISON: Head Brain Wo Cont dated 05/27/2021; Ct Stroke Brain Wo Cont dated 04/11/2022 TECHNIQUE: Multi-sequence, multiplanar MR imaging of the brain was performed without contrast. FINDINGS: No intracranial hemorrhage, hydrocephalus or extra-axial fluid collections.Mild periventri cular chronic microvascular ischemic changes. No edema or shift of midline structures. No findings to suspect brain mass. DWI is negative for acute CVA. Midline structures are normally formed. Mild mucosal thickening of the maxillary antra. Mild left mastoid effusion. IMPRESSION: Negative for acute CVA or other acute intracranial process.
[2022-04-11 21:54] VITALS: TEMP 97.4
[2022-04-11 22:09] VITALS: O2SAT 100
[2022-04-11 22:14] VITALS: BP 130/69
--- NOTE | 2022-04-14 19:21 | EKG ---
Test Date: 2022-04-11 Test Time: 12:33:46 Hotel Maintenance Engineer: LADONNA MEASUREMENT RESULTS: Intervals: Rate: 81 ID: [id number] QRSD: 74 QT: 386 QTc: 448 [place]: P: 62 ID: [id number] QRS: 8 T: 62 INTERPRETIVE STATEMENTS: Normal sinus rhythm Normal ECG Compared to ECG 03/18/2022 15:23:49 T-wave abnormality no longer present Electronically Signed On 04-14-22 19:11:24 KAIAKO KURA TUARUA by Mahesh Rousseau
== END 2022-04-11 21:00 | disposition short-term general hospital (02) ==
LOC: ER 10:45 → SUPCPDRO 10:45 → ER 21:00
DX: I63.9 Cerebral infarction, unspecified (principal); R29.701 NIHSS score 1; E10.65 Type 1 diabetes mellitus with hyperglycemia; I65.21 Occlusion and stenosis of right carotid artery; N17.8 Other acute kidney failure; I10 Essential (primary) hypertension; Z20.822 Contact with and (suspected) exposure to COVID-19
CPT/HCPCS: 96365; 93005; 85025; 80048; 36415; 83735; 85610; 80076; 81003; 84484; 83690; 83880; 0241U; 70450; 71045; 93880; 70551; 96375; 99285; 96366; J1815; J7030

== ENCOUNTER 2022-05-10 17:17 | Emergency (ER) | payer MEDICARE, OTHER ==
--- OUTSIDE RECORDS SUMMARY | 2022-05-10 17:24 | XMS REPORT | Continuity of Care Document ---
:1950 Author Organization [facility] t Address [address] [place] [address] Care Team Providers Name Role Phone CIRILO ANTONIO Primary Care Physician Unavailable Cirilo Antonio Attending Clinician Unavailable Alicia Chilel Attending Clinician Unavailable BRISEYDA DE LOS SANTOS Attending Clinician Unavailable Brittney Davis MD Attending Clinician Adal Garrido MD Attending Clinician Briseyda De Los Santos MD Attending Clinician BRITTNEY DAVIS Attending Clinician Unavailable PAYTON CRANE Attending Clinician Unavailable Gisselle Attending Clinician Unavailable Colin Evans Attending Clinician SAM MENDIOLA Attending Clinician Unavailable Sam Mendiola MD Attending Clinician Payton Crane MD Attending Clinician Kishor Attending Clinician Unavailable MARLON ABEL Attending Clinician Unavailable Ayaka Phan MD Attending Clinician Tala MELENDREZ, Comfort Phillips Attending Clinician [phone] Isi MELENDREZ, Marlon Maravilla Attending Clinician [phone] Rohan Chawla Attending Clinician ROHAN PATE Attending Clinician Unavailable CURRY_S Attending Clinician Unavailable Fozia-Mbayo_A_AH Attending Clinician Unavailable Raju_P Attending Clinician Unavailable KAMALJIT ARANGO Attending Clinician Unavailable ANNITA GALVAN Attending Clinician Unavailable BRISEYDA DE LOS SANTOS Admitting Clinician [facility] Admitting Clinician Unavailable Keshawn_Diane Admitting Clinician Unavailable AYAKA PHAN Admitting Clinician Unavailable CURRTeodoro_[place] Admitting Clinician Unavailable Fozia-Mbayo_A_AH Admitting Clinician Unavailable Raju_P Admitting Clinician Unavailable Payers Payer Name Policy Type Policy Number Effective Date Expiration Date S aurelia FORMERLY [facility] MGD [facility] 2005 MCR 00:00:00 [facility] 2020 MEDICARE ADVANTAGE 00:00:00 PLAN [id number] 2021 00:00:00 [facility] 2020 (MEDICARE 00:00:00 REPLACEMENT HMO) [facility] [id number] 2019 [place] (MEDICARE 00:00:00 REPLACEMENT/ADVANTA GE - HMO) [employer] [place] [id number] 2018 (MEDICARE 00:00:00 REPLACEMENT/ADVANTA GE - HMO) () [id number] 2005 00:00:00 [employer] [place] [id number] 2016 CHOICE 00:00:00 [id number] 2005 00:00:00 Problems Condition Condition Condition Status Onset Resolution Last Treating Co mments Source Name Details Category Date Date Treatment Clinician Date Left-sided Left-sided Disease Active 2021-[address] weakness weakness 1-16 [facility] 00 [place] Facial Facial Disease Active 2021-[address] [facility] [facility] droop droop 1-16 [facility] 00 [place] Senile Senile Problem Active [facility] purpura Purpura 1-26 Family 00:00: Practic 00 e Peripheral Peripheral Problem Active [facility] vascular Vascular 1-26 Family disease Disease 00:00: Practic 00 e Type 2 Type 2 Problem Active [facility] diabetes Diabetes 9-17 Family mellitus Mellitus 00:00: Practi c with with 00 e peripheral Peripheral angiopathy Angiopathy Diabetic Diabetic Problem Active Holder ge peripheral Peripheral 7-17 Fa angel neuropathy Neuropathy 00:00: Pr actic 00 e Major Major Problem Active [facility] depressive Depressive 7-17 Fa angel disorder Disorder 00:00: Practi c 00 e Bilateral Bilateral Problem Active Glenn charo knee pain Knee Pain 7-17 Fami ly 00:00: Practic 00 e Febrile Febrile Disease Active 2018-05 [facility] 1-18 ity of 00:00: [place] [facility] Lumbar Lumbar Disease Active Univers radiculopa radiculopa 7-19 it y of thy thy 00:00: [place] [facility] Total knee Total knee Disease Active U nivers replacemen replacemen -18 it y of t status t status 00:00: [place] [facility] Left knee Left knee Disease Active Uni vers pain pain 3-10 ity of 00:00: [place] [facility] Left knee Left knee Disease Active Uni vers pain pain 1-21 ity of 00:00: [place] [facility] [id number] Hospital Problem Comm on discharge [facility] Essential Essential Problem Com mon hypertensi hypertensi Sp evan on on [facility] Allergic Allergic Problem Commo n rhinitis rhinitis [facility] [id number] Trigger Problem Commo n finger, Spirit left ring - [facility] finger [facility] [id number] Exposure Problem Comm on to the flu [facility] [id number] Cough Problem Common [facility] [id number] Chronic Problem Commo n pain Spirit syndrome [facility] [id number] Common Problem Common cold virus [facility] [id number] Lipoma of Problem Co mmon 01693 torso [facility] [id number] Seasonal Problem Comm on allergies [facility] [id number] Screening Problem Com mon for breast [facility] cancer - [facility] [id number] Right hand Problem C ommon [id number] pain Spirit - [facility] [id number] Burn Problem Common [facility] - [facility] [id number] Uncontroll Problem Co mmon ed type 2 Spirit diabetes - [facility] mellitus [facility] hyperglyce [facility] [id number] Pain in Problem Comm on right knee Spirit - [facility] [id number] Pain in Problem Common left knee Spirit - [facility] [id number] Primary Problem Comm on osteoarthr Spirit itis of - [facility] right knee [facility] [id number] Effusion Problem Com mon of knee Spirit joint - [facility] right [facility] [id number] Body aches Problem Com mon Spirit [facility] [id number] Carpal Problem Commo n [id number] tunnel Spirit syndrome - [facility] on both [facility] Chronic Other Problem Common pain chronic Spirit pain - [facility] Mixed Depression Problem Commo n anxiety with Spirit and anxiety - [facility] depressive [facility] Vul[place] Problem C ommon itis itis Spirit - [facility] Diabetes Diabetes Problem Commo n mellitus mellitus, Spiri t type 2 type 2 - [facility] [id number] Primary Problem Common osteoarthr Spirit itis, - [facility]I right hand [facility] [id number] Osteopenia Problem Co mmon of hand, Spirit unspecifie - [facility] d [facility] [id number] Primary Problem Commo n osteoarthr Spirit itis - [facility] involving [facility] Right Right Disease Resolve 2021-0 2022-04-11 2022-04-[address] sided sided d 1-02 00:00:00 23:03:13 [facility] numbness numbness 00:00: [facility] Allergies, Adverse Reactions, Alerts Allergy Allergy Status Severity Reaction(s) Onset Inactive Treating Comm ents Source Name Type Date Date Clinician NO KNOWN Drug Active Univers ALLERGIE Class ity of [facility] NO KNOWN Allergy Active [facility] Family History Family Member Diagnosis Comments Start Date Stop Date Source Family member Heart disease [facility] Family member Stroke [facility] Social History Social Habit Start Date Stop Date Quantity Comments Source History of Tobacco Common Spirit - Use [facility] History SDAL [facility] Alcohol Std Drinks Medica l Center History SDAL [facility] Alcohol Binge Medical Dandy [facility] History [facility] Alcohol Comment Medical C enter History [facility] Transport Non-Med Medical Center Exposure to 2022-04-02 2022-04-[address] [facility] SARS-CoV-2 (event) 00:00:00 03:14:00 Medica l Center History [facility] 2022-04-12 2022-04-[address] [facility] Transport Med 00:00:00 00:00:[address] History [facility] 2022-04-12 2022-04-[address] [facility] Housing Unable to 00:00:00 00:00:00 Medical Center Pay History [facility] 2022-04-12 2022-04-[address] [facility] Housing Places 00:00:00 00:00:00 Medical Ce nter Lived History [facility] 2022-04-12 2022-04-[address] [facility] Housing Homeless 00:00:00 00:00:00 Medical Center Last Year Alcohol intake 2022-04-12 2022-04-[address] [facility] 00:00:00 00:00:00 non-drinker Medical Jerzy contreras (finding) Tobacco use and 2021-05-28 2021-05-[address] [facility] exposure 00:00:00 00:00:00 Medical Center History [facility] 2021-05-28 2021-05-[address] [facility] Alcohol Frequency 00:00:00 00:00:00 Medical Center Sex Assigned At [address] [facility] 00:00:00 00:00:00 Medical Center Smoking Status Start Date Stop Date Source Former Smoker 2022-02-13 00:00:00 2022-02-13 00:00:00 Common S pirit - [facility] Never smoker [facility] Medications Ordered Filled Start Stop Current Ordering Indication Dosage Frequency Signature Comments Components Source Medication Medication Date Date Medication? Clinician (SIG) Name Name gabapentin 2021-05 Yes 800mg Q.[id number] Take [address] (NEURONTIN) -18 [id number] mg by L ukes 800 MG 19:59: 3D mouth 3 Medical tablet 22 (three) Center times daily. folic acid 2021-05 Yes 1mg QD Take [address] (FOLVITE) 1 18 by mouth Luke s MG tablet 19:59: daily. Medica l 22 [place] clopidogreL 2021-05 Yes 75mg QD Take [address] (PLAVIX) 75 18 by mouth Luke s mg tablet 19:59: daily. Medica l 22 [place] chlorthalid 2021-05 Yes 25mg QD Take [address] one 18 by mouth [facility] (HYGROTON) 19:59: daily. Medic al 25 MG 22 [place] tablet aspirin 81 2021-05 Yes 81mg QD Take [address] MG EC 18 by mouth [facility] tablet 19:59: daily. Medical 22 Center glimepiride 2021-05 Yes 2mg Q.5D Take [address] (AMARYL) 2 06-13 by mouth 2 Maricel es MG tablet 19:59: (two) Medical 22 times Center daily. montelukast 2021-05 Yes 10mg QD Take [address] (SINGULAIR) 18 by mouth Luke s 10 mg 19:59: nightly. Medical tablet 22 [place] atorvastati 2021-05 40mg QD Take [address] n (LIPITOR) 1-18 11-18 by mouth Maricel es 40 MG 16:33: 00:00 nightly. Medical tablet 08 :00 [place] atorvastati 2021-05 Yes 80mg QD Take [address] n (LIPITOR) 1-18 tablet (80 Safia kes 80 MG 00:00: mg total) Medical tablet 00 by mouth Center nightly. losartan Yes 100mg QD Take [address] (COZAAR) 9-27 mg by Lukes 100 MG 00:00: mouth Medical tablet 00 daily. [place] Ozempic Yes SMARTSI [facility] 0.25 mg or 9-15 .25 [facility] 0.5 mg(2 00:00: Milligram( Med ical mg/1.5 mL) 00 s) SUB-Q Cente r PnIj Once a Week gabapentin 2022-0 Yes 800mg Q.[id number] Take [address] (NEURONTIN) 1-02 [id number] mg by L ukes 800 MG 17:08: 3D mouth 3 Medical tablet 55 (three) Center times daily. folic acid 0 Yes 1mg QD Take [address] (FOLVITE) 1 1-02 by mouth Luke s MG tablet 17:08: daily. [address] atorvastati 0 Yes 40mg QD Take [address] n (LIPITOR) 1-02 by mouth Luke s 40 MG 17:08: nightly. Medical tablet [address] [place] [address] clopidogreL Yes 75mg QD Take [address] (PLAVIX) 75 1-02 by mouth Luke s mg tablet 17:08: daily. [address] chlorthalid 0 Yes 25mg QD Take [address] one 1-02 by mouth [facility]ukes (HYGROTON) 17:08: daily. Medic al [address] [place] [address] tablet aspirin 81 Yes 81mg QD Take [address] MG EC -02 by mouth [facility] tablet 17:08: daily. [address] glimepiride 0 Yes 2mg Q.5D Take [address] (AMARYL) 2 1-02 by mouth 2 Maricel es MG tablet 17:08: (two) Medical 55 times Center daily. gabapentin 0 Yes 800mg Q.[id number] Take [address] (NEURONTIN) 1- [id number] mg by L ukes 800 MG 17:08: 3D mouth 3 Medical tablet 55 (three) Center times daily. folic acid 0 Yes 1mg QD Take [address] (FOLVITE) 1 1-02 by mouth Luke s MG tablet 17:08: [facility]. [facility] [address] atorvastati 0 Yes 40mg QD Take [address] n (LIPITOR) 1-02 by mouth Luke s 40 MG 17:08: nightly. Medical tablet [address] [place] [address] clopidogreL 0 Yes 75mg QD Take [address] (PLAVIX) 75 1-02 by mouth Luke s mg tablet 17:08: daily. [address] chlorthalid 0 Yes 25mg QD Take [address] one 1-02 by mouth [facility]ukes (HYGROTON) 17:08: daily. Medic al 25 MG 55 Center tablet aspirin 81 0 Yes 81mg QD Take [address] MG EC 1-02 by mouth [facility]ukes tablet 17:08: daily. [address] glimepiride 2021-0 Yes 2mg Q.5D Take [address] (AMARYL) 2 1-02 by mouth 2 Maricel es MG tablet 17:08: (two) Medical 55 times Center daily. gabapentin 2021-0 Yes 800mg Q.[id number] Take [address] (NEURONTIN) 1- [id number] mg by L ukes 800 MG 17:08: 3D mouth 3 Medical tablet 55 (three) Center times daily. folic acid 0 Yes 1mg QD Take [address] (FOLVITE) 1 -02 by mouth Luke s MG tablet 17:08: daily. [address] atorvastati Yes 40mg QD Take [address] n (LIPITOR) - by mouth Luke s 40 MG 17:08: nightly. Medical [address] clopidogreL 0 Yes 75mg QD Take [address] (PLAVIX) 75 -02 by mouth Luke s mg tablet 17:08: daily. [address] chlorthalid 0 Yes 25mg QD Take [address] one 1-02 by mouth Lukes (HYGROTON) 17:08: daily. Medic al 25 MG 55 Center tablet aspirin 81 0 Yes 81mg QD Take [address] MG EC 1-02 by mouth [facility]ukes tablet 17:08: daily. [address] glimepiride 2021-0 Yes 2mg Q.5D Take [address] (AMARYL) 2 1-02 by mouth 2 Maricel es MG tablet 17:08: (two) Medical 55 times Center daily. gabapentin 2021-0 Yes 800mg Q.[id number] Take [address] (NEURONTIN) 1-02 [id number] mg by L ukes 800 MG 17:08: 3D mouth 3 Medical tablet 55 (three) Center times daily. folic acid 2021-0 Yes 1mg QD Take [address] (FOLVITE) 1 1-02 by mouth Luke s MG tablet 17:08: daily. Medica l 55 Center atorvastati Yes 40mg QD Take [address] n (LIPITOR) 05-28 by mouth Luke s 40 MG 17:08: nightly. Medical tablet 55 Center clopidogreL Yes 75mg QD Take [address] (PLAVIX) 75 05-28 by mouth Luke s mg tablet 17:08: daily. Medica l 55 Center chlorthalid Yes 25mg QD Take [address] one 05-28 by mouth Lukes (HYGROTON) 17:08: daily. Medic al 25 MG 55 Center tablet aspirin 81 Yes 81mg QD Take [address] MG EC 05-28 by mouth [facility]ukes tablet 17:08: daily. Medical 55 Center glimepiride Yes 2mg Q.5D Take [address] (AMARYL) 2 05-28 by mouth 2 Maricel es MG tablet 17:08: (two) Medical 55 times Center daily. celecoxib 2021- No 200mg QD Take [address] (CeleBREX) 1-02 01-02 mg by [facility] 200 MG 16:11: 00:00 mouth Medical capsule 18 :00 daily. [place] celecoxib 2021- No 200mg QD Take [address] (CeleBREX) 1-02 01-02 mg by [facility]ukes 200 MG 16:11: 00:00 mouth Medical capsule 18 :00 daily. [place] celecoxib 2021- No 200mg QD Take [address] (CeleBREX) 1-02 01-02 mg by [facility]ukes 200 MG 16:11: 00:00 mouth Medical capsule 18 :00 daily. [place] celecoxib 2021- No 200mg QD Take [address] (CeleBREX) 1-02 01-02 mg by [facility]ukes 200 MG 16:11: 00:00 mouth Medical capsule 18 :00 daily. [place] celecoxib 2021- No 200mg QD Take [address] (CeleBREX) -02 01-02 mg by [facility]ukes 200 MG 16:11: 00:00 mouth Medical capsule 18 :00 daily. [place] Glimepiride Glimepiride Yes Alicia 1 tablet Common 9-09 [place] with Spirit 00:00: breakfast - [facility] or the [facility] first main [facility] meal of [facility] the day Center Glimepiride Glimepiride 2020-0 No 1{table Glimepirid 2 MG 2 MG 02-02 t_with_ e 2 MG 00:00: break st_or_t he_firs t_main_ meal_of _the_da y} GABAPENTIN 2020-0 Yes [id number] TAKE 1 Univers 300 mg 8-04 CAPSULE BY ity of capsule 00:00: MOUTH 3 [place] TIMES A Medical DAY Branch GABAPENTIN 2020-0 Yes [id number] TAKE 1 Univers 300 mg 8-04 CAPSULE BY ity of capsule 00:00: MOUTH 3 [place] TIMES A Medical DAY Branch GABAPENTIN 2020-0 Yes [id number] TAKE 1 Univers 300 mg 8-04 CAPSULE BY ity of capsule 00:00: MOUTH 3 [place] TIMES A Medical DAY Branch Januvia Januvia 2020-0 Yes Alicia 1 tablet Co mmon 5-26 [place] Spirit 00:00: - [facility] Januvia 50 Januvia 50 2020-0 No 1{table Januvia 50 MG MG 5-26 t} MG 00:00: 00 Diclofenac 2020-0 Yes [id number] Apply to Univers Sodium 3-19 area(s) 4 ity of (VOLTAREN) 00:00: (four) [place] 1 % gel 00 times Medical daily. Branch Diclofenac 2020-0 Yes [id number] Apply to Univers Sodium 3-19 area(s) 4 ity of (VOLTAREN) 00:00: (four) [place] 1 % gel 00 times Medical daily. Branch Diclofenac 2020-0 Yes [id number] Apply to Univers Sodium 3-19 area(s) 4 ity of (VOLTAREN) 00:00: (four) [place] 1 % gel 00 times Medical daily. Branch metFORMIN 2020-0 Yes 1000mg Take 1,000 Univers (GLUCOPHAGE 2-07 mg by ity of ) 1,000 mg 09:42: mouth 2 [place] tablet 43 (two) Medical times Branch daily with meals. GLIMEPIRIDE 2020-0 Yes 2mg Take 2 mg U nivers ORAL 2-07 by mouth ity of 09:42: daily. [place] 43 Medical Branch insulin 2020-0 Yes 15U [...] 2-07 by mouth ity of 09:42: daily. [address] insulin 2020-0 Yes 15U inject 15 Unive rs glargine 2-07 Units ity of (LANTUS 09:42: under the [place] U-100) 100 43 skin at Medica l unit/mL bedtime. Branch injection dapaglifloz 2020-0 Yes Farxiga 5 U nivers in 2-07 mg tablet ity of (XI) 5 09:42: Take 1 [place] mg [...] 2-07 by mouth ity of 09:42: daily. [address] insulin 2020-0 Yes 15U inject 15 [...] Branch by oral route. hydrOXYzine 2020-0 Yes [id number] 25mg Take 1 Univers 25 mg 1-31 tablet by ity of tablet 00:00: mouth [place] 00 every 6 Medical (six) Branch hours as needed for Itching. gabapentin 2020-0 Yes [id number] 600mg Take 1 Univers 600 mg 1-31 tablet by ity of tablet 00:00: mouth 3 (three) Medical times Branch daily. hydrOXYzine 2020-0 Yes [id number] 25mg Take 1 Univers 25 mg 1-31 tablet by ity of tablet 00:00: mouth [place] 00 every 6 Medical (six) Branch hours as needed for Itching. gabapentin 2020-0 Yes [id number] 600mg Take 1 Univers 600 mg 1-31 tablet by ity of tablet 00:00: mouth 3 (three) Medical times Branch daily. hydrOXYzine 2020-0 Yes [id number] 25mg Take 1 Univers 25 mg 1-31 tablet by ity of tablet 00:00: mouth [place] 00 every 6 Medical (six) Branch hours as needed for Itching. gabapentin 2020-0 Yes [id number] 600mg Take 1 Univers 600 mg 1-31 tablet by ity of tablet 00:00: mouth 3 (three) Medical times Branch daily. methylPREDN 2020-0 Yes [id number] 84mg Take 21 Univers ISolone 1-16 tablets by ity of (MEDROL, 00:00: mouth [place] PURNIMA,) 4 mg 00 SEE-INSTRU Med ical tablets CTIONS. Branch follow package directions methylPREDN 2020-0 Yes [id number] 84mg Take 21 Univers ISolone 1-16 tablets by ity of (MEDROL, 00:00: mouth [place] PURNIMA,) 4 mg 00 SEE-INSTRU Med ical tablets CTIONS. Branch follow package directions methylPREDN 2020-0 Yes [id number] 84mg Take 21 Univers ISolone 1-16 tablets by ity of (MEDROL, 00:00: mouth [place] PURNIMA,) 4 mg 00 SEE-INSTRU Med ical tablets CTIONS. Branch follow package directions lisinopril 2019- Yes 10mg Take 10 mg U nivers 10 mg 2-24 by mouth ity of tablet 00:00: daily. [place] [facility] citalopram 2018-05 Yes 10mg Take 10 mg U nivers 10 mg 2-24 by mouth ity of tablet 00:00: daily. [place] [facility] lisinopril 2018- Yes 10mg Take 10 mg U nivers 10 mg 2-24 by mouth ity of tablet 00:00: daily. Medical Branch citalopram 2019- Yes 10mg Take 10 mg U nivers 10 mg 2-24 by mouth ity of tablet 00:00: daily. Medical Branch lisinopril 2019- Yes 10mg Take 10 mg U nivers 10 mg 2-24 by mouth ity of tablet 00:00: daily. Medical Branch citalopram 2019- Yes 10mg Take 10 mg U nivers 10 mg 2-24 by mouth ity of tablet 00:00: daily. Medical Branch naproxen Yes TAKE 1 Univers 500 mg 7-11 TABLET ity of tablet 00:00: WITH FOOD [place] 00 OR MILK Medical NEEDED Branch TWICE A DAY ORALLY 30 DAYS naproxen Yes TAKE 1 Univers 500 mg 7-11 TABLET ity of tablet 00:00: WITH FOOD [place] 00 OR MILK Medical NEEDED Branch TWICE A DAY ORALLY 30 DAYS naproxen Yes TAKE 1 Univers 500 mg 7-11 TABLET ity of tablet 00:00: WITH FOOD [place] 00 OR MILK Medical NEEDED Branch TWICE A DAY ORALLY 30 DAYS LORazepam Yes TAKE 1 Univer s 0.5 mg 7-10 TABLET BY ity of tablet 00:00: MOUTH 00 EVERY 12 Medical HOURS Branch NEEDED FOR ANXIETY LORazepam Yes TAKE 1 Univer s 0.5 mg 7-10 TABLET BY ity of tablet 00:00: MOUTH 00 EVERY 12 Medical HOURS Branch NEEDED FOR ANXIETY LORazepam Yes TAKE 1 Univer s 0.5 mg 7-10 TABLET BY ity of tablet 00:00: MOUTH EVERY 12 Medical HOURS Branch NEEDED FOR ANXIETY terbinafine Yes 250mg Take 250 U nivers HCl 250 mg 6-13 mg by ity of tablet 00:00: mouth 00 daily. Medical Branch terbinafine 2017-0 Yes 250mg Take 250 U nivers HCl 250 mg 6-13 mg by ity of tablet 00:00: mouth 00 daily. Medical Branch terbinafine Yes 250mg Take 250 U nivers HCl 250 mg 6-13 mg by ity of tablet 00:00: mouth 00 daily. Medical Branch metformin metformin No 1 BID metformin [place] 1,000 mg 1,000 mg 1,000 mg da tablet Take tablet Take tablet Medical 1 tablet 1 tablet Take 1 Group twice a day twice a day tablet by oral by oral twice a route. route. day by oral route. acetaminoph acetaminoph No acetaminop [facility] en 300 en 300 hen 300 Family mg-codeine mg-codeine mg-codeine Practic 30 mg 30 mg 30 mg e tablet TAKE tablet TAKE tablet 1 TABLET BY 1 TABLET BY TAKE 1 MOUTH EVERY MOUTH EVERY TABLET BY 8 HOURS 8 HOURS MOUTH EVERY 8 HOURS amoxicillin amoxicillin No amoxicilli [facility] 500 mg 500 mg n 500 mg Family capsule capsule capsule Practi c TAKE 1 TAKE 1 TAKE 1 e CAPSULE BY CAPSULE BY CAPSULE BY MOUTH EVERY MOUTH EVERY MOUTH 6 HOURS 6 HOURS EVERY 6 HOURS amoxicillin amoxicillin No amoxicilli [facility] 500 500 n 500 Family mg-potassiu mg-potassiu mg-potassi Practic m m um e clavulanate clavulanate clavulanat 125 mg 125 mg e 125 mg tablet tablet tablet BD BD No BD [place] Ultra-Fine Ultra-Fine Ultra-Fine Family Micro Pen Micro Pen Micro Pen Practic Needle 32 Needle 32 Needle 32 e gauge x gauge x gauge x 1/4" /4" 05/30" celecoxib celecoxib No celecoxib [facility] 200 mg 200 mg 200 mg Family capsule capsule capsule Practi c TAKE 1 TAKE 1 TAKE 1 e CAPSULE BY CAPSULE BY CAPSULE BY MOUTH EVERY MOUTH EVERY MOUTH DAY DAY EVERY DAY chlorthalid chlorthalid No chlorthali [facility] one 25 mg one 25 mg done 25 mg Family tablet TAKE tablet TAKE tablet Practic 1 TABLET BY 1 TABLET BY TAKE 1 e MOUTH EVERY MOUTH EVERY TABLET BY DAY DAY MOUTH EVERY DAY citalopram citalopram No 1 Q1D citalopram [facility] 10 mg 10 mg 10 mg Family tablet Take tablet Take tablet Practic 1 tablet 1 tablet Take 1 e every day every day tablet by oral by oral every day route. route. by oral route. dexamethaso dexamethaso No dexamethas [facility] ne 6 mg ne 6 mg one 6 mg Famil y tablet tablet tablet Practic e diclofenac diclofenac No diclofenac [facility] 1 % topical 1 % topical 1 % F amily gel APPLY gel APPLY topical Pr actic TO AFFECTED TO AFFECTED gel APPLY e AREA TWICE AREA TWICE TO A DAY A DAY AFFECTED AREA TWICE A DAY diclofenac diclofenac No diclofenac [facility] sodium 75 sodium 75 sodium 75 Family mg mg mg Practic tablet,janeen tablet,janeen tablet,del e yed release yed release ayed release gabapentin gabapentin No 1capsul BID gabapentin [facility] 300 mg 300 mg e(s) 300 mg Family capsule capsule capsule Practi c Take 1 Take 1 Take 1 e capsule capsule capsule twice a day twice a day twice a by oral by oral day by route. route. oral route. gabapentin gabapentin No gabapentin [facility] 800 mg 800 mg 800 mg Family tablet TAKE tablet TAKE tablet Practic 1 TABLET BY 1 TABLET BY TAKE 1 e MOUTH THREE MOUTH THREE TABLET BY TIMES A DAY TIMES A DAY MOUTH THREE TIMES A DAY glimepiride glimepiride No glimepirid [facility] 2 mg tablet 2 mg tablet [...] GLUCOSE GLUCOSE GLUCOSE levofloxaci levofloxaci No levofloxac [facility] n 500 mg n 500 mg in 500 mg Fa angel tablet tablet tablet Practic e lisinopril lisinopril No lisinopril [facility] 10 mg 10 mg 10 mg Family tablet tablet tablet Practic e lisinopril lisinopril No lisinopril [facility] 20 mg 20 mg 20 mg Family tablet Take tablet Take tablet Practic 1 tablet 1 tablet Take 1 e every day every day tablet by oral by oral every day route. route. by oral route. meloxicam meloxicam No meloxicam [facility] 7.5 mg 7.5 mg 7.5 mg Family tablet Take tablet Take tablet Practic 1 tablet 1 tablet Take 1 e every day every day tablet by oral by oral every day route. route. by oral route. metformin metformin No metformin [facility] 1,000 mg 1,000 mg 1,000 mg Fam mara tablet Take tablet Take tablet Practic 1 tablet 1 tablet Take 1 e twice a day twice a day tablet by oral by oral twice a route. route. day by oral route. metformin metformin No metformin [facility] 500 mg 500 mg 500 mg Family tablet tablet tablet Practic e methylpredn methylpredn No methylpred [facility] isolone 4 isolone 4 nisolone 4 Family mg tablets mg tablets mg tablets Practic in a dose in a dose in a dose e pack pack pack ondansetron ondansetron No ond[place] HCl 4 mg HCl 4 mg n HCl 4 mg F amily tablet tablet tablet Practic e OneTouch OneTouch No OneTouch Glenn charo Verio test Verio test Verio test Family strips Use strips Use strips Use Practic to test to test to test e blood blood blood glucose glucose glucose once a day once a day once a day pregabalin pregabalin No pregabalin [facility] 75 mg 75 mg 75 mg Family capsule capsule capsule Practi c e Ultra Thin Ultra Thin No Ultra Thin [facility] Lancets 31 Lancets 31 Lancets 31 Family gauge Use gauge Use gauge Use Practic to test to test to test e blood blood blood glucose glucose glucose once a day once a day once a day Celexa Celexa Yes Alicia 1 tablet Common [facility] Acetaminoph Acetaminoph Yes Alicia 1 tablet Common en-Codeine en-Codeine Millender as needed Spirit #3 #3 - [facility] Lisinopril Lisinopril Yes Alicia 1 tablet Common Millender [facility] Melatonin Melatonin Yes Alicia 1 tablet Common Millender at bedtime Spir it as needed - [facility] with food [facility] Gabapentin Gabapentin Yes Alicia 1 tablet Common [facility] Diclofenac Diclofenac Yes Alicia TAKE 1 Common Sodium Sodium Millender TABLET BY S pirit MOUTH - [facility] TWICE A St DAY WITH [facility] MEALS [facility] Metformin Metformin Yes Alicia 1 tablet Common HCl HCl Millender with meals Spir it - [facility] Acetaminoph Acetaminoph No 1{table 6xD Acetaminop en-Codeine [...] QD CeleXA 10 MG MG t} MG Farxiga 5 Farxiga 5 No 1 Q1D [...] nasal mcg/actuat spray,suspe spray,suspe ion nasal nsion [place] nsion [place] spray,susp 1 spray 1 spray ension twice a day twice a day [place] 1 by by spray intranasal intranasal twice a route for route for day by 30 days. 30 days. intranasal route for 30 days. Vital Signs Vital Name Observation Time Observation Value Comments Source HEIGHT 2022-04-12 02:04:00 157.5 cm HEIGHT 2022-04-12 02:04:00 157.5 cm HEIGHT 2022-04-12 02:04:00 157.5 cm Systolic blood 2021-10-11 20:43:00 121 mm[Hg] [facility] Diastolic blood 2021-10-11 20:43:00 74 mm[Hg] [facility] Heart rate 2021-10-11 20:43:00 88 /min [facility] Body height 2021-10-11 20:43:00 163.8 cm [facility] Body weight 2021-10-11 20:43:00 71.26 kg [facility] BMI 2021-10-11 20:43:00 26.55 kg/m2 [facility] Oxygen saturation in 2021-10-11 20:43:00 94 /min [facility] Arterial blood by [facility] Pulse oximetry Branch Height 2020-02-12 00:00:00 63 [in_i] [facility] Height 2019-12-11 00:00:00 63 [in_i] [facility] BMI (Body Mass 2019-12-11 00:00:00 28.9 kg/m2 [facility] Family Index) Practice Body Weight 2019-12-11 00:00:00 163 [lb_av] [facility] BP Diastolic 2018-11-14 00:00:00 83 mm[Hg] [facility] Height 2018-11-14 00:00:00 64 [in_i] [facility] BMI (Body Mass 2018-11-14 00:00:00 25.5 kg/m2 [facility] 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 Heart rate 2022-04-13 16:00:00 86 /min [facility] Body temperature 2022-04-13 16:00:00 36.56 Meghana [facility] Respiratory rate 2022-04-13 16:00:00 18 /min [facility] Oxygen saturation in 2022-04-13 16:00:00 96 /min [facility] Arterial blood by Medical nt Pulse oximetry Body height 2022-04-12 02:04:00 157.5 cm [facility] Systolic blood 2021-05-28 16:00:00 185 mm[Hg] [facility] Diastolic blood 2021-05-28 16:00:00 77 mm[Hg] [facility] Heart rate 2021-05-28 16:00:00 94 /min [facility] Body temperature 2021-05-28 16:00:00 36.11 Meghana [facility] Respiratory rate 2021-05-28 16:00:00 18 /min [facility] Oxygen saturation in 2021-05-28 16:00:00 98 /min [facility] Arterial blood by Medical Ce ntrayo Pulse oximetry Procedures Procedure Date / Time Performing Clinician Source Performed POCT-GLUCOSE METER 2022-04-13 17:25:00 Magali [facility] POCT-GLUCOSE METER 2022-04-13 11:31:00 Magali [facility] CTA CAROTID 2022-04-13 09:29[facility] 2022-04-13 08:17:[facility] ([facility] ONLY[facility] 2022-04-13 05:25:00 [facility] HEMOGLOBIN A1C 2022-04-13 05:25:00 Magali [facility] BASIC METABOLIC PANEL 2022-04-13 05:25:00 Magali [facility] POCT-GLUCOSE METER 2022-04-12 21:56:00 [facility] SODIUM, RANDOM URINE 2022-04-12 20:30:00 [facility] UREA NITROGEN, RANDOM 2022-04-12 20:30:00 [facility] URINE [facility] CREATININE, RANDOM URINE 2022-04-12 20:30:00 [facility] POCT-GLUCOSE METER 2022-04-12 16:32:00 [facility] 2D ECHO W/ DOPPLER 2022-04-12 13:23:01 [facility] (CW/PW/COLOR) [facility] POCT-GLUCOSE METER 2022-04-12 12:23:00 Magali [facility] POCT-GLUCOSE METER 2022-04-12 08:20:00 Magali [facility] BASIC METABOLIC PANEL 2022-04-12 04:27:00 RadhikaAdal [facility] MAGNESIUM 2022-04-12 04:27:00 Radhika [facility] LIPID PANEL 2022-04-12 04:27:00 Briseyda De Los Santoshir [facility] POCT-GLUCOSE METER 2022-04-11 23:39:00 RamírezBrittney barajas Tanja [facility] EKG-SCANNED 2022-04-11 00:00:[address] [facility] POCT-GLUCOSE METER 2021-05-28 12:13:00 Isi [facility] POCT-GLUCOSE METER 2021-05-28 08:42:00 Isi [facility] HEMOGLOBIN A1C 2021-05-28 08:36:00 Jessica [facility] TSH/FREE T4 IF INDICATED 2021-05-28 08:36:00 Ashwin Lopez [facility] VITAMIN B12 AND FOLATE 2021-05-28 08:36:00 Jessica [facility] RPR 2021-05-28 08:36:00 Jessica [facility] C-REACTIVE PROTEIN 2021-05-28 08:36:00 Ashwin Lopez [facility] BASIC METABOLIC PANEL 2021-05-28 04:52:00 TalaComfort valerio [facility] MAGNESIUM 2021-05-28 04:52:00 TalaComfort valerio [facility] CBC W/PLT COUNT & AUTO 2021-05-28 04:52:00 Comfort Edgar [facility] LIPID PANEL 2021-05-28 04:52:00 [facility] W/[facility]T [facility] & AUTO 2021-05-28 04:52:00 TalaComfort valerio [facility] POCT-GLUCOSE METER 2021-05-28 01:02:00 Comfort Edgar [facility] TYMPANOMETRY 2018-11-14 00:00:00 [facility] Plan of Care Planned Activity Planned Date Details Comments Source Future Scheduled Test 2023-04-[address] [facility] r Screening (12+) [code = Tobacco Cessation Counseling and Screening (12+)] Future Scheduled Test 2022-01-25 INFLUENZA VACCINE (#1) [...] [facility] ([facility] of 1 - Medical Center [id number] PCV13) [code = PNEUMOCOCCAL 65+ YRS (1 of 1 - [id number] PCV13)] Future Scheduled Test 2014 PNEUMOCOCCAL 65+ [...] [facility] ([facility] of [facility] - Medical Center [id number] PCV13) [code = PNEUMOCOCCAL 65+ YRS (1 of 1 - [id number]_Bzrgkca PCV13)] Future Scheduled Test 2014 PNEUMOCOCCAL 65+ [...] [facility]procedure[facility] [code = 203127774] Future Scheduled Test [address] [facility] 00:00:00 (combo) [code = CT Medical C enter Colonography (combo)] Future Scheduled Test [facility] malignant neoplasm of Medica [facility] Center colon (procedure) [code = 468842005] Future Scheduled Test [facility] malignant neoplasm of [facility] Center colon (procedure) [code = 069591375] Future Scheduled Test 1949 DXA SCAN [code = DXA [facility] 00:00:00 SCAN] Medical Center Future Scheduled Test [facility] malignant neoplasm of [facility] Center colon (procedure) [code = 516036430] Future Scheduled Test [facility] malignant neoplasm of [facility] Center colon (procedure) [code = 296181752] Future Scheduled Test 1949 Sigmoidoscopy [code = [facility] 00:[facility] Sigmoidoscopy] [facility] r Future Scheduled Test [facility] malignant neoplasm of Medica [facility] Center breast (procedure) [code = 039643694] Future Scheduled Test [address] [facility] 00:00:00 (combo) [code = CT Medical C enter Colonography (combo)] Future Scheduled Test [facility] malignant neoplasm of [facility] Center colon (procedure) [code = 076797189] Future Scheduled Test [facility] malignant neoplasm of [facility] Center colon (procedure) [code = 890072741] Future Scheduled Test 1949 DXA SCAN [code = DXA [facility] 00:00:00 SCAN] [facility] Future Scheduled Test [facility] malignant neoplasm of Medica [facility] Center colon (procedure) [code = 838362345] Future Scheduled Test [facility] malignant neoplasm of [facility] Center colon (procedure) [code = 470938158] Future Scheduled Test 1949 Sigmoidoscopy [code = [facility] 00:[facility] Sigmoidoscopy] [facility] r Future Scheduled Test [facility] malignant neoplasm of [facility]ica [facility] Center breast (procedure) [code = 227726449] Future Scheduled Test [facility] malignant neoplasm of [facility]ica [facility] Center colon (procedure) [code = 359365239] Future Scheduled Test 1949 DXA SCAN [code = DXA [facility] 00:00:00 SCAN] [facility] Future Scheduled Test [facility] malignant neoplasm of [facility] Center breast (procedure) [code = 947309143] Future Scheduled Test [facility] malignant neoplasm of Medica [facility] Center colon (procedure) [code = 069839713] Future Scheduled Test 1949 DXA SCAN [code = DXA [facility] 00:00:00 SCAN] [facility] Future Scheduled Test 1949 [facility] malignant neoplasm of Medica l Center breast (procedure) [code = 643747898] Future Scheduled Test [address] [facility] 00:00:00 (combo) [code = CT Medical C enter Colonography (combo)] Future Scheduled Test 1949 [facility] malignant neoplasm of Medica [facility] Center colon (procedure) [code = 540735903] Future Scheduled Test [facility] malignant neoplasm of [facility]ica [facility] Center colon (procedure) [code = 640597355] Future Scheduled Test 1949 DXA SCAN [code = DXA [facility] 00:00:00 SCAN] [facility] Future Scheduled Test [facility] malignant neoplasm of Medica [facility] Center colon (procedure) [code = 256816537] Future Scheduled Test [facility] malignant neoplasm of [facility]ica [facility] Center colon (procedure) [code = 843626352] Future Scheduled Test 1949 Sigmoidoscopy [code = [facility] 00:00:00 Sigmoidoscopy] [facility] Cent[facility] Encounters Start End Encounter Admission Attending Care Care Encounter Source Date/Time Date/Time Type Type Clinicians Facility Department ID 2022-02-13 Outpatient Inna, [facility] [id number] Common 09:18:01 Cirilo Spirit [facility] 2022-02-12 Outpatient [facility] [id number] Common 10:26:01 [facility] 2022-01-26 Outpatient zclaudiaMillende STLMLC STLC [id number] Common 11:09:01 diane Alicia [facility] 2021-12-19 Outpatient zzzMillende STLMLC STLMLC [id number] Common 16:35:01 diane Alicia [facility] 2021-06-21 Outpatient Millender, STLMLC STLMLC [id number] Common 13:39:14 Alicia 41968 [facility] 2021-06-21 Outpatient Millender, STLMLC STLC [id number] Common 13:38:05 Alicia 23389 [facility] 2021-06-21 Outpatient Millender, STLMLC STLMLC [id number] Common 11:44:26 Alicia 52159 [facility] 2021-06-21 Outpatient Millender, STLMLC STLC [id number] Common 11:40:16 Alicia 65998 [facility] 2021-06-21 Outpatient Millender, STLMLC STLMLC [id number] Common 11:23:33 Alicia 45819 [facility] 2021-06-21 Outpatient Millender, STLMLC STLMLC [id number] Common 11:23:07 Alicia 87075 [facility] 2022-04-11 2022-04-13 [facility] Neurology [id number] [facility] 22:12:00 19:56:00 2022-04-11 2022-04-13 [facility] Brittney Davis [facility] [id number] 22:12:00 19:56:00 Encounter Adal Garrido [facility] 2022-04-12 2022-04-12 Travel [facility] [id number] [facility] 00:00:00 00:00:00 [facility] 2022-02-27 2022-02-27 (TEL) [facility] [id number] Co mmon 00:00:00 00:00:00 [facility] 2022-01-25 2022-01-25 [facility] [id number] Univers 08:30:00 08:30:00 PAYTON [facility] 2021-12-08 2021-12-08 Outpatient [facility] [id number] [facility] 08:16:00 08:16:00 0715 [facility] 2021-11-22 2021-11-22 CAV Vonja [id number]. [id number]. CLAC [id number] [facility] 14:00:00 15:00:00 Nathan [id number] [facility] [id number] 2021-11-21 2021-11-21 Outpatient [facility] [id number] Univers 09:20:00 09:20:00 SAM beebe o f [facility] 2021-11-21 2021-11-21 [facility]phone [facility] [id number] Univers 00:00:00 00:00:00 Sam [place] [id number] [place]y [place] [id number] Mi camron CHEEMA 059 [facility] 2021-11-15 2021-11-15 Outpatient Gisselle [facility] [id number] Devoted 03:32:00 03:32:00 0622 [facility] 2021-10-11 2021-10-11 Outpatient R [facility]A [facility] [id number] Univers 16:00:00 16:03:06 PAYTON [facility] 2021-10-11 2021-10-11 Office [facility] [id number] Univers 16:00:00 16:03:06 Visit [facility] [id number] it y of [facility] [id number] Sameer as CUAUHTEMOC?BLEA [id number] Mi camron MENDOZAEY 198 [facility] OFFICE [facility] 2021-10-11 2021-10-11 Outpatient R ROSA MARIA, [facility] [id number] Univers 16:00:00 16:03:06 PAYTON teodoro [facility] 2021-09-06 2021-09-06 Outpatient Kishor DMG [facility] [id number] Devoted 01:57:00 01:57:00 0413 Medica l Group 2021-05-28 2021-05-28 Outpatient ER ISAAC ABEL Neurology [id number] SLE 00:42:00 17:08:00 [facility] 2021-05-28 2021-05-28 [facility] Ayaka Phan [facility] [id number] 00:42:00 17:08:[address] 2021-05-28 2021-05-28 [facility] Ayaka Phan [facility] [id number] 00:42:00 17:08:[address] 2021-05-28 2021-05-28 Travel [facility] [id number] [facility] 00:00:00 00:00:00 [facility] 2021-05-28 2021-05-28 Travel [facility] [id number] [facility] 00:00:00 00:00:00 [facility] 2021-03-22 2021-03-22 Outpatient Diane [facility] [id number] Univers 13:45:00 13:45:00 [facility] 2021-03-20 2021-03-20 [facility] [id number] Univers 15:05:00 23:59:00 Encounter [id number] [facility] [id number] Sameer as Cuauhtemoc?Blea [id number] Mi chente[address] Medical Office Building 2021-03-20 2021-03-20 Office [facility] [id number] Univers 14:51:53 16:00:20 Visit [facility] [id number] it y of [place] 4.2.7.2.686 Sameer as Cuauhtemoc?Blea [id number] Mi camron [address] Medical Office [facility] 2021-03-20 2021-03-20 Outpatient Diane [facility] [id number] Univers 14:45:00 16:00:20 [facility] 2021-03-20 2021-03-20 Outpatient Diane [facility] [id number] [facility] 14:45:00 14:45:00 [facility] 2020-12-27 2020-12-27 Outpatient CURRY_S DMG [facility] [id number] Devoted 01:40:00 01:40:00 0803 Medica l Group 2020-07-01 2020-07-01 Outpatient Fozia-Mbayo VFP VFP [id number] 05:22:00 05:22:00 _A_AH 51198 Family Practic e 2020-06-23 2020-06-23 Outpatient Fozia-Mbayo VFP VFP [id number] 02:12:00 02:12:00 _A_AH 48021 Family Practic e 2020-06-22 2020-06-22 Outpatient Fozia-Mbayo VFP VFP [id number] 10:49:00 10:49:00 _A_AH 23717 Family Practic e 2020-06-21 2020-06-21 Prerna VFP [place] - [id number] 00:00:00 00:00:00 Fozia-Mbay [facility] 48676 Fam mara jennings CELL TOWER CLIMBER: Medical - Practi c 9[address] Cathy VM_HOU_V@_ e [facility], [address] [address], [place] [address] , Ph. 2020-04-13 2020-04-13 Outpatient Raju_P MMG MMG [id number] [place] 02:32:00 02:32:00 1118 da Medical Group 2020-03-01 2020-03-01 Outpatient Fozia-Mbayo VFP VFP [id number] [facility] 04:05:00 04:05:00 _A_AH 26261 Family Practic e 2020-02-29 2020-02-29 Outpatient Fozia-Mbayo VFP VFP [id number] [facility] 01:50:00 01:50:00 _A_AH 26549 Family Practic e 2020-02-22 2020-02-22 Outpatient Fozia-Mbayo VFP VFP [id number] [facility] 08:48:00 08:48:00 _A_AH 93250 Family Practic e 2020-02-12 2020-02-12 Prerna VFP [place] - [id number] [facility] 00:00:00 00:00:00 Fozia-Mbay [facility] 14648 Fam mara jennings CELL TOWER CLIMBER: Medical - Practi jesus [address] KATZ_HOU_V@_ e [facility], [address] [address], [place] [address] , Ph. 2020-02-03 2020-02-03 Outpatient Brazospor Dietert [id number] Common 11:00:00 11:00:00 [facility] 2020-01-11 2020-01-11 Outpatient Fozia-Mbayo VFP VFP [id number] 06:55:00 06:55:00 _A_AH 37992 Family Practic e 2020-01-06 2020-01-06 Outpatient Fozia-Mbayo VFP VFP [id number] 07:22:00 07:22:00 _A_AH 27549 Family Practic e 2019-12-31 2019-12-31 Outpatient COH COH PDPFEJF PWQ COH 00:00:00 00:00:00 [id number] 2019-12-30 2019-12-30 Outpatient Fozia-Mbayo VFP VFP [id number] [facility] 07:14:00 07:14:00 _A_AH 80835 Family Practic e 2019-12-28 2019-12-28 RORY Knapp [id number] 00:00:00 00:00:00 [facility] [id number] Surgical [id number] Specialti [id number] es [address] [place] 2019-12-28 2019-12-28 [facility] [id number] 00:00:00 00:00:00 [facility] [id number] Surgical [id number] Specialti [id number] es [address] [place] 2019-12-25 2019-12-25 Outpatient Fozia-Mbayo VFP VF [id number] [id number] [facility] 01:52:00 01:52:00 _A_AH 89532 Family [facility] e 2019-12-23 2019-12-23 Outpatient [facility] [id number] Common 10:54:00 10:54:00 [facility] Medical [facility] 2019-12-17 2019-12-17 Outpatient Fozia-Mbayo VFP [facility] [id number] [facility] 10:07:00 10:07:00 _A_AH 30080 [facility] e 2019-12-11 2019-12-11 Prerna [facility] [place] - [id number] [facility] 00:00:00 00:00:00 Fozia-Mbay [facility] 14954 [facility] mara jennings CELL TOWER CLIMBER: Medical - Practi c [address] KATZ_HOU_V@_ e [facility], [address] [place] [address], [place] [address] , Ph. 2019-12-10 2019-12-10 Office [facility] [id number] 15:07:12 15:45:01 Visit [facility] [id number] Surgical [id number] Specialti [id number] es [address] [place] 2019-12-10 2019-12-10 Outpatient Diane [facility] [id number] [facility] 15:00:00 15:00:00 PAYTON beebe [facility] 2019-12-03 2019-12-03 Outpatient [facility] [id number] Common 14:42:00 14:42:00 [facility] 2019-10-27 2019-10-27 Outpatient [facility] [id number] Common 16:30:00 16:30:00 [facility] 2019-10-20 2019-10-20 Outpatient Dieter [facility] [id number] Common 22:55:00 22:55:00 t [facility] Sp[address] [facility] 2019-10-20 2019-10-20 Outpatient Dieter [facility] [id number] Common 09:40:00 09:40:00 [facility] Sp[address] it [address] [facility] 2019-09-22 2019-09-22 Outpatient Diane [facility] [id number] Univers 10:00:00 10:00:00 [facility] 2019-08-17 2019-08-17 Outpatient Diane [facility] [id number] Univers 13:45:00 13:45:00 [facility] 2019-07-23 2019-07-23 Outpatient Jorge Alberto [facility] [id number] [facility] 01:59:00 01:59:00 _A_AH 32894 Family Practic e 2019-07-16 2019-07-16 Outpatient Diane [facility] [id number] Univers 08:45:00 08:56:09 [facility] 2019-06-26 2019-06-26 Outpatient KAMALJIT RODAS [facility] [id number] Univers 11:03:09 23:59:00 [facility] 2019-04-28 2019-04-28 Outpatient Diane GALVAN [facility] [id number] Univers 11:51:08 23:59:00 ANNITA [facility] 2018-11-14 2018-11-14 [place] [facility] [place] - [id number] [place] 00:00:00 00:00:00 MD Tonya: [address] Group [place], [place] - [address], [facility] [address] , Ph. Results Test Description Test Time Test Comments Results Result Comments Source POC-Glucose meter 2022-04-13 17:53:29 Test Item Value Reference Range Interpretation Comme nts POC-Glucose Meter (test code = 313 mg/dL 70-110 H : TESTED AT [facility] [address] [facility] 1538) [facility], 770 30: Roaster Helper/Techni tenisha ID = [id number] for [place] Lab Interpretation (test code = Abnormal 69356-2) [facility] [id number] 17:53:29 Test Item Value Reference Range Interpretation Comments POC-GLUCOSE METER 313 mg/dL 70-110 H : [facility] (BEAKER) (test code = FUNMI Contreras [facility], 1538) [address]: Roaster Helper/Techni tenisha ID = [id number] for Mando Oquendo POCT-GLUCOSE [id number] 13:28:53 Test Item Value Reference Range Interpretation Comments POC-GLUCOSE METER 197 mg/dL 70-110 H : TESTED A T [facility] 6720 ([facility] [place] (test code = [facility] Diane [facility], 1538) [address]: Roaster Helper/Techni tenisha ID = [id number] for Mando Oqeundo CT, CAROTID, [id number] 12:59:00Unlisted Reason for Exam - Click Yes and Enter Reason Below->YesUnlisted Reason for Exam->stroke, evaluate for ICA stenosisCHONC PED[facility]ATRIC [facility]ITAL[facility]: [facility] RICCI : 1950 Sex: FFINAL REPORT CT, CAROTID, ANGIO INDICATION: Unlisted Reason for Examstroke, evaluate forICA stenosis COMPARISON: None TECHNIQUE:Rapid acquisition spiral images were obtained between the aortic arch and the skull base during intravenous contrast infusion to reconstruct axial images and nohemi ographic 3D maximum intensity projections (MIP). 3-D volumetric reformatted images were created at [employer] workstation. Stenosis evaluation reported in compliance with NASCET criteria. DOSE REDUCTION: Dose modulation, iterative reconstruction, and/or weight-based adjustment of the mA/kV was utilized to reduce the radiation dose to as low as reasonably achievable. FINDINGS: CTA neck:Aortic arch vessel origins: Bilateral subclavian artery mild to moderate stenoses. Carotid arteries: Minimal carotid bulb atherosclerotic plaques present. Right ICA stenosis of 30%. Patent left ICA. Vertebral arteries: No occlusion or high-grade stenosis. No fracture or suspicious osseous lesion. Multinodular thyroid including right lobe 1.3 cm nodule does not meet criteria for follow-up recommendation. Visualized lung apices are clear. Mild multilevel degenerative changes of the cervical spine. Additional findings. Imaged portions of the left cavernous carotid artery demonstrate moderate to severe focal stenosis. IMPRESSION:Proximal right cervical ICA 30% stenosis. Patent left cervical ICA. Patent bilateral vertebral arteries. Signed: Sg Goldstein MDRepparkland health center Verified Date/Time: 04/13/2022 12:59:44 HEMOGLOBIN [id number] 09:32:48 Test Item Value Reference Range Interpretation Comments HEMOGLOBIN A1C 8.8 % See_Comment H [Automated m essage] ELECTROPHORESIS (BEAKER) The system which (test code = 3811) generated this result transmitted ref erence range: <=5.6%. The reference range was not used to int erpret this result as normal/abnormal . "The A1c is measured using a NGSP-certified method. HbA1c value equal to or greater than 6.5% as thediagnosis cutoff for diabetes. An HbA1c value of 5.7- 6.4% indicates increased risk for diabetes (prediabetes)."Roaster Helper ID - [id number] (HEMOGRAM ONLY)2022-04-13 09:20:42 Test Item Value Reference Range Interpretation Comments WHITE BLOOD CELL COUNT (BEAKER) 5.8 K/ L 3.5-10.5 (test code = 775) RED BLOOD CELL COUNT (BEAKER) 3.57 M/ L 3.93-5.22 L (test code = 761) HEMOGLOBIN (BEAKER) (test code = 10.6 GM/DL 11.2-15.7 L 410) HEMATOCRIT (BEAKER) (test code = 32.7 % 34.1-44.9 L 411) MEAN CORPUSCULAR VOLUME (BEAKER) 92 fL 79-95 (test code = 753) MEAN CORPUSCULAR HEMOGLOBIN 29.7 pg 25.6-32.2 (BEAKER) (test code = 751) MEAN CORPUSCULAR HEMOGLOBIN CONC 32.4 GM/DL 32.2-35.5 (BEAKER) (test code = 752) RED CELL DISTRIBUTION WIDTH 12.8 % 11.7-14.4 (BEAKER) (test code = 412) PLATELET COUNT (BEAKER) (test 173 K/CU MM 150-450 code = 756) MEAN PLATELET VOLUME (BEAKER) 12.6 fL 9.4-12.3 H (test code = 754) POCT-GLUCOSE [id number] 08:28:09 Test Item Value Reference Range Interpretation Comments POC-GLUCOSE METER 218 mg/dL 70-110 H : TESTED A T [facility] 6720 (BEAKER) (test code = FUNMI Contreras [facility], 1538) [address]: Roaster Helper/Techni tenisha ID = [id number] for Mando Oquendo BASIC METABOLIC [id number] 06:05:53 Test Item Value Reference Range Interpretation Comments SODIUM (BEAKER) 139 meq/L 136-145 (test code = 381) POTASSIUM 4.8 meq/L 3.5-5.1 (BEAKER) (test code = 379) CHLORIDE (BEAKER) 108 meq/L 98-107 H (test code = 382) CO2 (BEAKER) 24 meq/L 22-29 (test code = 355) BLOOD UREA 24 mg/dL 7-21 H NITROGEN (BEAKER) (test code = 354) CREATININE 1.42 mg/dL 0.57-1.25 H (BEAKER) (test code = 358) GLUCOSE RANDOM 243 mg/dL 70-105 H (BEAKER) (test code = 652) CALCIUM (BEAKER) 9.0 mg/dL 8.4-10.2 (test code = 697) EGFR (BEAKER) 39 Interpretatio n of eGFR (test code = mL/min/1.73 values Stage De scription 1092) sq m Result G1 Viji l or high >=90 G2 Mildly decreased 60-89 G3a Mildl y to moderately 45-5 9 G3b Moderately to s everely 30-44 G4 Severl y decreased 15-29 G5 Kidney failure <15Reported eGF R is based on the CKD-EPI 2020 equation that d oes not use a race coefficientEsti mated GFR is not as accur ate as Creatinine Kinza jeni in predicting glom erular filtration rate . Estimated GFR is not appl icable for dialysis patien ts Roaster Helper ID - BSPOCT-GLUCOSE [id number] 22:07:21 Test Item Value Reference Range Interpretation Comments POC-GLUCOSE METER 259 mg/dL 70-110 H : [facility] (BEAKER) (test code = FUNMI [place], 1538) [address]: Roaster Helper/Techni tenisha ID = [id number] for Leonora Jensen Creatinine, random [id number] 21:26:20 Test Item Value Reference Range Interpretation Comments Creatinine, Ur 83.2 mg/dL (test code = 2161-8) JING (test code = Reference Range: No JING) NormalsOperator ID - [facility] [id number] 21:26:20 Test Item Value Reference Range Interpretation Comments Sodium Urine (test 120 meq/L code = 2955-3) JING (test code = Reference Range: No JING) NormalsOperator ID - BS [facility] CenterU[facility] Nitrogen, random [id number] 21:26:20 Test Item Value Reference Range Interpretation Comments Urea Nitrogen, Ur 518 mg/dL (test code = 3095-7) JING (test code = Reference Range: No JING) NormalsOperator ID - BS [facility] CenterCREATININE, RANDOM [id number] 21:26:20 Test Item Value Reference Range Interpretation Comments CREATININE URINE (BEAKER) (test 83.2 mg/dL code = 375) Reference Range: No NormalsOperator ID - BSSODIUM, RANDOM [id number] 21:26:20 Test Item Value Reference Range Interpretation Comments SODIUM URINE (BEAKER) (test code = 120 meq/L 243) Reference Range: No NormalsOperator ID - BSUREA NITROGEN, RANDOM [id number] 21:26:20 Test Item Value Reference Range Interpretation Comments UREA NITROGEN URINE (BEAKER) (test 518 mg/dL code = 538) Reference Range: No NormalsOperator ID - BSPOCT-GLUCOSE [id number] 16:48:28 Test Item Value Reference Range Interpretation Comments POC-GLUCOSE METER 202 mg/dL 70-110 H : TESTED A T [facility] 6720 (BEAKER) (test code = [facility], 1538) [address]: Roaster Helper/Techni tenisha ID = [id number] for Mando Oquendo POCT-GLUCOSE [id number] 16:44:04 Test Item Value Reference Range Interpretation Comments POC-GLUCOSE METER 300 mg/dL 70-110 H : TESTED A T [facility] 6720 (BEAKER) (test code = [facility], 1538) [address]: Roaster Helper/Techni tenisha ID = [id number] for Mando Oquendo 2D Echo W/Doppler(CW/PW/Color)2022-04-12 15:05:43Ejection [facility] ECHO HEARTLAB MKCKESSON [facility]PO[facility] [id number] 12:40:18 Test Item Value Reference Range Interpretation Comments POC-GLUCOSE METER 256 mg/dL 70-110 H : TESTED A T [facility] 6720 (BEAKER) (test code = [facility], 1538) 86[address]: Roaster Helper/Techni tenisha ID = [id number] for Mando Oquendo LIPID [id number] 10:27:00 Test Item Value Reference Range Interpretation Comments TRIGLYCERIDES (BEAKER) (test code = 215 mg/dL 540) CHOLESTEROL (BEAKER) (test code = 106 mg/dL 631) HDL CHOLESTEROL (BEAKER) (test code 32 mg/dL = 976) LDL CHOLESTEROL CALCULATED (BEAKER) 31 mg/dL (test code = 633) Triglyceride Reference Range: Low Risk <150 Borderline 150-199 High Risk 200- 499 Very High Risk >=500Cholesterol Reference Range: Low Risk <200 Borderline 200-239 High Risk >240HDL Cholesterol Reference Range: Low Risk >=60 High Risk <40LDL Cholesterol Reference Range: Optimal <100 Near Optimal 100-129 Borderline 130-159 High 160-189 Very High >=190 Roaster Helper ID - CARLOS [id number] 05:37:39 Test Item Value Reference Range Interpretation Comments MAGNESIUM (BEAKER) (test code = 1.7 mg/dL 1.6-2.6 627) Roaster Helper ID - CARLOS MBASIC METABOLIC [id number] 05:37:38 Test Item Value Reference Range Interpretation Comments SODIUM (BEAKER) 140 meq/L 136-145 (test code = 381) POTASSIUM 4.1 meq/L 3.5-5.1 (BEAKER) (test code = 379) CHLORIDE (BEAKER) 106 meq/L 98-107 (test code = 382) CO2 (BEAKER) 26 meq/L 22-29 (test code = 355) BLOOD UREA 26 mg/dL 7-21 H NITROGEN (BEAKER) (test code = 354) CREATININE 1.58 mg/dL 0.57-1.25 H (BEAKER) (test code = 358) GLUCOSE RANDOM 261 mg/dL 70-105 H (BEAKER) (test code = 652) CALCIUM (BEAKER) 9.0 mg/dL 8.4-10.2 (test code = 697) EGFR (BEAKER) 35 Interpretatio n of eGFR (test code = mL/min/1.73 values Stage De scription 1092) sq m Result G1 Viji l or high >=90 G2 Mildly decreased 60-89 G3a Mildl y to moderately 45-5 9 G3b Moderately to s everely 30-44 G4 Severl y decreased 15-29 G5 Kidney failure <15Reported eGF R is based on the CKD-EPI 2020 equation that d oes not use a race coefficientEsti mated GFR is not as accur ate as Creatinine Kinza ngo in predicting glom erular filtration rate . Estimated GFR is not appl icable for dialysis patien ts Roaster Helper ID - CARLOS MPOCT-GLUCOSE [id number] 23:50:56 Test Item Value Reference Range Interpretation Comments POC-GLUCOSE METER 211 mg/dL 70-110 H : TESTED A T [facility] 6720 (BEAKER) (test code = FUNMI Contreras [facility], 1538) [address]: Roaster Helper/Techni tenisha ID = [id number] for Ty Sandie ramirez [id number] 11:37:18 Test Item Value Reference Range Interpretation Comments RPR (test code = 12209-2) Nonreactive Nonreactive Lab Interpretation (test code = Normal 61802-9) [facility]:37[facility]18 Test Item Value Reference Range Interpretation Comments RPR (test code = 92804-8) Nonreactive Nonreactive Lab Interpretation (test code = Normal 36083-8) [place] [id number] 11:37:18 Test Item Value Reference Range Interpretation Comments RPR (test code = 68373-7) Nonreactive Nonreactive Lab Interpretation (test code = Normal 02058-0) [facility] 11:37:18 Test Item Value Reference Range Interpretation Comments RPR (test code = 51511-9) Nonreactive Nonreactive Lab Interpretation (test code = Normal 60166-3) [facility] 11:37:18 Test Item Value Reference Range Interpretation Comments RPR (test code = 36934-1) Nonreactive Nonreactive Lab Interpretation (test code = Normal 22933-4) [facility] 11:37:18 Test Item Value Reference Range Interpretation Comments RPR SCREEN (BEAKER) (test code = Nonreactive Nonreactive 420) Hemoglobin [id number] 13:48:33 Test Item Value Reference Range Interpretation Comments Hemoglobin A1C (test code = 4548-4) 8.0 % 4.3-6.1 H Lab Interpretation (test code = Abnormal 40472-7) [facility] CenterHemoglobin [id number] 13:48:33 Test Item Value Reference Range Interpretation Comments Hemoglobin A1C (test code = 4548-4) 8.0 % 4.3-6.1 H Lab Interpretation (test code = Abnormal 08648-8) [facility] CenterHemoglobin [id number] 13:48:33 Test Item Value Reference Range Interpretation Comments Hemoglobin A1C (test code = 4548-4) 8.0 % 4.3-6.1 H Lab Interpretation (test code = Abnormal 65776-4) [facility] CenterHem[facility] [id number] 13:48:33 Test Item Value Reference Range Interpretation Comments Hemoglobin A1C (test code = 4548-4) 8.0 % 4.3-6.1 H Lab Interpretation (test code = Abnormal 90611-4) [facility] CenterHEMOGLOBIN [id number] 13:48:33 Test Item Value Reference Range Interpretation Comments HEMOGLOBIN A1C (BEAKER) (test code = 8.0 % 4.3-6.1 H 368) POC-Glucose [id number] 12:30:39 Test Item Value Reference Range Interpretation Comments POC-Glucose Meter (test 154 mg/dL 70-110 H : TE STED AT [facility] code = 1538) [address] [place] [address], [address] 30: Roaster Helper/Techni tenisha ID = [id number] for DOE, IZAIAH Lab Interpretation (test Abnormal code = 18308-9) [facility] CenterPOC-Glucose [id number] 12:30:39 Test Item Value Reference Range Interpretation Comments POC-Glucose Meter (test 154 mg/dL 70-110 H : TE STED AT [facility] code = 1538) [address] [place] [address], 770 30: Roaster Helper/Techni tenisha ID = [id number] for DOE, IZAIAH Lab Interpretation (test Abnormal code = 71376-5) [facility] CenterP[facility]Glucose [id number] 12:30:39 Test Item Value Reference Range Interpretation Comments POC-Glucose Meter (test 154 mg/dL 70-110 H : TE STED AT [facility] code = 1538) [address] [place] [address], 770 30: Roaster Helper/Techni tenisha ID = [id number] for DOE, IZAIAH Lab Interpretation (test Abnormal code = 57990-7) [facility]POC[facility]Glucose [id number] 12:30:39 Test Item Value Reference Range Interpretation Comments POC-Glucose Meter (test 154 mg/dL 70-110 H : TE STED AT [facility] code = 1538) [address] [place] [address], 770 30: Roaster Helper/Techni tenisha ID = [id number] for DOE, IZAIAH Lab Interpretation (test Abnormal code = 11591-6) [facility] CenterPO[facility]SE [id number] 12:30:39 Test Item Value Reference Range Interpretation Comments POC-GLUCOSE METER 154 mg/dL 70-110 H : TESTED A T [facility] 6720 (YUNIEL) (test code = FUNMI [place], 1538) [address]: Roaster Helper/Techni tenisha ID = [id number] for IZAIAH MCGEE TSH/Free T4 If [id number] 09:53:22 Test Item Value Reference Range Interpretation Comments TSH (test code = 2.157 See_Comment [Automated 99150-4) message] The system which generated this result transmit queenie reference range : 0.350 - 4.940 uIU/mL. The reference range was not used to interpret this result as normal/abnormal . JING (test code = JING) Roaster Helper ID - PIAYA L Lab Interpretation Normal (test code = 01680-1) [facility] CenterVitamin B12 and [id number] 09:53:22 Test Item Value Reference Range Interpretation Comments Vitamin B12 (test 300 pg/mL 213-816 code = 2132-9) Folate (test code = 17.40 ng/mL See_Comment [Automa queenie 2284-8) message] The system which generated this result transmit queenie reference range : >=7.00. The reference range was not used to interpret this result as normal/abnormal . JING (test code = JING) Roaster Helper ID - PIAYA L Lab Interpretation Normal (test code = 57883-0) [facility] CenterTSH/Free T4 If [id number] 09:53:22 Test Item Value Reference Range Interpretation Comments TSH (test code = 2.157 See_Comment [Automated 03785-7) message] The system which generated this result transmit queenie reference range : 0.350 - 4.940 uIU/mL. The reference range was not used to interpret this result as normal/abnormal . JING (test code = JING) Roaster Helper ID - PIAYA L Lab Interpretation Normal (test code = 26440-7) [facility] CenterVitamin B12 and [id number] 09:53:22 Test Item Value Reference Range Interpretation Comments Vitamin B12 (test 300 pg/mL 213-816 code = 2132-9) Folate (test code = 17.40 ng/mL See_Comment [Automa queenie 2284-8) message] The system which generated this result transmit queenie reference range : >=7.00. The reference range was not used to interpret this result as normal/abnormal . JING (test code = JING) Roaster Helper ID - PIAYA L Lab Interpretation Normal (test code = 52801-9) [facility] CenterTSH/Free T4 If [id number] 09:53:22 Test Item Value Reference Range Interpretation Comments TSH (test code = 2.157 See_Comment [Automated 69973-6) message] The system which generated this result transmit queenie reference range : 0.350 - 4.940 uIU/mL. The reference range was not used to interpret this result as normal/abnormal . JING (test code = JING) Roaster Helper ID - PIAYA L Lab Interpretation Normal (test code = 31492-0) [facility] CenterVitamin B12 and [id number] 09:53:22 Test Item Value Reference Range Interpretation Comments Vitamin B12 (test 300 pg/mL 213-816 code = 2132-9) Folate (test code = 17.40 ng/mL See_Comment [Automa queenie 2284-8) message] The system which generated this result transmit queenie reference range : >=7.00. The reference range was not used to interpret this result as normal/abnormal . JING (test code = JING) Roaster Helper ID - PIAYA L Lab Interpretation Normal (test code = 42945-8) [facility] CenterTS/Free T4 If [id number] 09:53:22 Test Item Value Reference Range Interpretation Comments TSH (test code = 2.157 See_Comment [Automated 01906-9) message] The system which generated this result transmit queenie reference range : 0.350 - 4.940 uIU/mL. The reference range was not used to interpret this result as normal/abnormal . JING (test code = JING) Roaster Helper ID - PIAYA L Lab Interpretation Normal (test code = 22505-9) [facility] CenterVitamin B12 and [id number] 09:53:22 Test Item Value Reference Range Interpretation Comments Vitamin B12 (test 300 pg/mL 213-816 code = 2132-9) Folate (test code = 17.40 ng/mL See_Comment [Automa queenie 2284-8) message] The system which generated this result transmit queenie reference range : >=7.00. The reference range was not used to interpret this result as normal/abnormal . JING (test code = JING) Roaster Helper ID - MARTINA L Lab Interpretation Normal (test code = 25966-4) [facility] CenterTSH/Free T4 If [id number] 09:53:22 Test Item Value Reference Range Interpretation Comments TSH (test code = 2.157 See_Comment [Automated 58968-4) message] The system which generated this result transmit queenie reference range : 0.350 - 4.940 uIU/mL. The reference range was not used to interpret this result as normal/abnormal . JING (test code = JING) Roaster Helper ID - MARTINA L Lab Interpretation Normal (test code = 05247-1) [facility] CenterVitamin B12 and [id number] 09:53:22 Test Item Value Reference Range Interpretation Comments Vitamin B12 (test 300 pg/mL 213-816 code = 2132-9) Folate (test code = 17.40 ng/mL See_Comment [Automa queenie 2284-8) message] The system which generated this result transmit queenie reference range : >=7.00. The reference range was not used to interpret this result as normal/abnormal . JING (test code = JING) Roaster Helper ID - MARTINA L Lab Interpretation Normal (test code = 64546-4) [facility] CenterTSH/FREE T4 IF [id number] 09:53:22 Test Item Value Reference Range Interpretation Comments THYROID STIMULATING HORMONE 2.157 uIU/mL 0.350-4.940 (BEAKER) (test code = 772) Roaster Helper ID - MARTINA LVITAMIN B12 AND [id number] 09:53:22 Test Item Value Reference Range Interpretation Comments VITAMIN B12 300 pg/mL 213-816 (BEAKER) (test code = 774) FOLATE (BEAKER) 17.40 ng/mL See_Comment [Automated message] (test code = 362) The system which generated this result transmitted ref erence range: >=7.00. The reference range was not used to interpr et this result as normal/abnormal . Roaster Helper ID - MARTINA LC-Reactive [id number] 09:18:38 Test Item Value Reference Range Interpretation Comments CRP (test code = 676) 0.41 mg/dL 0.00-0.50 JING (test code = JING) Roaster Helper ID - PIAYA L Lab Interpretation (test Normal code = 52566-1) [facility] CenterC-Reactive Gyipkdm5897-34-57 09:18:38 Test Item Value Reference Range Interpretation Comments CRP (test code = 676) 0.41 mg/dL 0.00-0.50 JING (test code = JING) Roaster Helper ID - PIAYA L Lab Interpretation (test Normal code = 38480-4) [facility]-Reactive [id number] 09:18:38 Test Item Value Reference Range Interpretation Comments CRP (test code = 676) 0.41 mg/dL 0.00-0.50 JING (test code = JING) Roaster Helper ID - PIAYA L Lab Interpretation (test Normal code = 08208-7) [facility]-Reactive [id number] 09:18:38 Test Item Value Reference Range Interpretation Comments CRP (test code = 676) 0.41 mg/dL 0.00-0.50 JING (test code = JING) Roaster Helper ID - PIAYA L Lab Interpretation (test Normal code = 81301-6) [facility]-Reactive [id number] 09:18:38 Test Item Value Reference Range Interpretation Comments CRP (test code = 676) 0.41 mg/dL 0.00-0.50 JING (test code = JING) Roaster Helper ID - PIAYA L Lab Interpretation (test Normal code = 90982-4) [facility]-REACTIVE [id number] 09:18:38 Test Item Value Reference Range Interpretation Comments C-REACTIVE PROTEIN (ZEINABAKER) (test 0.41 mg/dL 0.00-0.50 code = 676) Roaster Helper ID - MARTINA LPOCT-GLUCOSE [id number] 08:53:38 Test Item Value Reference Range Interpretation Comments POC-GLUCOSE METER 123 mg/dL 70-110 H : Notified RN/MD: (YUNIEL) (test code = TESTED AT [facility] 6472 9601) [facility], [address]: Roaster Helper/Techni tenisha ID = [id number] for Breanna RUTH Lipid [id number] 08:18:29 Test Item Value Reference Range Interpretation Comments Triglycerides (test 111 mg/dL code = 2571-8) Cholesterol (test code 114 mg/dL = 2092-) HDL (test code = 33 mg/dL 2085-01) LDL Calculated (test 59 mg/dL code = 89566-6) JING (test code = JING) Triglyceride Reference Range: Low Risk <150 Borderline 150-199 High Risk 200-499 Very High Risk >=500 Cholesterol Reference Range: Low Risk <200 Borderline 200-239 High Risk >240 HDL Cholesterol Reference Range: Low Risk >=60 High Risk <40 LDL Cholesterol Reference Range: Optimal <100 Near Optimal 100-129 Borderline 130-159 High 160-189 Very High >=190 Roaster Helper KINA - MARTINA Pena [facility] CenterLipid [id number] 08:18:29 Test Item Value Reference Range Interpretation Comments Triglycerides (test 111 mg/dL code = 2571-8) Cholesterol (test code 114 mg/dL = 2092-07) HDL (test code = 33 mg/dL 2085-01) LDL Calculated (test 59 mg/dL code = 02462-0) JING (test code = JING) Triglyceride Reference Range: Low Risk <150 Borderline 150-199 High Risk 200-499 Very High Risk >=500 Cholesterol Reference Range: Low Risk <200 Borderline 200-239 High Risk >240 HDL Cholesterol Reference Range: Low Risk >=60 High Risk <40 LDL Cholesterol Reference Range: Optimal <100 Near Optimal 100-129 Borderline 130-159 High 160-189 Very High >=190 Roaster Helper KINA - MARTINA Pena [facility] CenterLipid [id number] 08:18:29 Test Item Value Reference Range Interpretation Comments Triglycerides (test 111 mg/dL code = 2571-8) Cholesterol (test code 114 mg/dL = 2092-) HDL (test code = 33 mg/dL 2085-01) LDL Calculated (test 59 mg/dL code = 80229-7) JING (test code = JING) Triglyceride Reference Range: Low Risk <150 Borderline 150-199 High Risk 200-499 Very High Risk >=500 Cholesterol Reference Range: Low Risk <200 Borderline 200-239 High Risk >240 HDL Cholesterol Reference Range: Low Risk >=60 High Risk <40 LDL Cholesterol Reference Range: Optimal <100 Near Optimal 100-129 Borderline 130-159 High 160-189 Very High >=190 Roaster Helper KINA - MARTINA Pena [facility] CenterLipid [id number] 08:18:29 Test Item Value Reference Range Interpretation Comments Triglycerides (test 111 mg/dL code = 2571-8) Cholesterol (test code 114 mg/dL = 2093-3) HDL (test code = 33 mg/dL 2084-9) LDL Calculated (test 59 mg/dL code = 52678-4) JING (test code = JING) Triglyceride Reference Range: Low Risk <150 Borderline 150-199 High Risk 200-499 Very High Risk >=500 Cholesterol Reference Range: Low Risk <200 Borderline 200-239 High Risk >240 HDL Cholesterol Reference Range: Low Risk >=60 High Risk <40 LDL Cholesterol Reference Range: Optimal <100 Near Optimal 100-129 Borderline 130-159 High 160-189 Very High >=190 Roaster Helper KINA Pena [facility] [id number] 08:18:29 Test Item Value Reference Range Interpretation [...] Borderline 130-159 High 160-189 Very High >=190 Roaster Helper KINA - MARTINA MAINasic metabolic [id number] 07:59:03 Test Item Value Reference Range Interpretation Comments Sodium (test code = 137 meq/L 825-761 7142-2) Potassium (test code 3.8 meq/L 3.5-5.1 = 2823-3) Chloride (test code = 106 meq/L 98-107 2074-0) CO2 (test code = 22 meq/L -2027-9) BUN (test code = 19 mg/dL 7-21 3094-0) Creatinine (test code 1.04 mg/dL 0.57-1.25 = 2160-0) Glucose (test code = 106 mg/dL 70-105 H 2345-7) Calcium (test code = 8.8 mg/dL 8.4-10.2 51018-5) EGFR (test code = 52 mL/min/1.73 [place] [address]-3) NOT ACCURATE CREATININE CLEARANCE IN PREDICTING GLOMERULAR FILTRATION RATE . ESTIMATED GFR I S NOT APPLICABLE FOR DIALYSIS PATIENTS. JING (test code = JING) Roaster Helper ID - MARTINA Grimm ID - PIAYA L Lab Interpretation Abnormal (test code = 47370-2) [facility] metabolic [id number] 07:59:03 Test Item Value Reference Range Interpretation Comments Sodium (test code = 137 meq/L 947-562 5867-2) Potassium (test code 3.8 meq/L 3.5-5.1 = 2823-3) Chloride (test code = 106 meq/L 98-107 2075-0) CO2 (test code = 22 meq/L -2027-) BUN (test code = 19 mg/dL 12-14 3094-0) Creatinine (test code 1.04 mg/dL 0.57-1.25 = 2160-0) Glucose (test code = 106 mg/dL 70-105 H 2345-7) Calcium (test code = 8.8 mg/dL 8.4-10.2 27421-5) EGFR (test code = 52 mL/min/1.[place] [address]-6) NOT ACCURATE CREATININE CLEARANCE IN PREDICTING GLOMERULAR FILTRATION RATE . ESTIMATED GFR I S NOT APPLICABLE FOR DIALYSIS PATIENTS. JING (test code = JING) Roaster Helper ID - MARTINA Grimm ID - PIAYA L Lab Interpretation Abnormal (test code = 97361-9) [facility] metabolic [id number] 07:59:03 Test Item Value Reference Range Interpretation Comments Sodium (test code = 137 meq/L 087-479 6112-2) Potassium (test code 3.8 meq/L 3.5-5.1 = 2823-3) Chloride (test code = 106 meq/L 98-107 2075-0) CO2 (test code = 22 meq/L -2027-9) BUN (test code = 19 mg/dL - 3094-0) Creatinine (test code 1.04 mg/dL 0.57-1.25 = 2160-0) Glucose (test code = 106 mg/dL 70-105 H 2345-7) Calcium (test code = 8.8 mg/dL 8.4-10.2 17704-2) EGFR (test code = 52 mL/min/1.[place] [address]-0) NOT ACCURATE CREATININE CLEARANCE IN PREDICTING GLOMERULAR FILTRATION RATE . ESTIMATED GFR I S NOT APPLICABLE FOR DIALYSIS PATIENTS. JING (test code = JING) Roaster Helper ID - MARTINA Luketor ID - PIAYA L Lab Interpretation Abnormal (test code = 20196-7) [facility] metabolic [id number] 07:59:03 Test Item Value Reference Range Interpretation Comments Sodium (test code = 137 meq/L 733-223 0177-2) Potassium (test code 3.8 meq/L 3.5-5.1 = 2823-3) Chloride (test code = 106 meq/L 98-107 5-0) CO2 (test code = 22 meq/L 22-29 8-9) BUN (test code = 19 mg/dL 7- 3094-0) Creatinine (test code 1.04 mg/dL 0.57-1.25 = 2160-0) Glucose (test code = 106 mg/dL 70-105 H 2345-7) Calcium (test code = 8.8 mg/dL 8.4-10.2 29704-3) EGFR (test code = 52 mL/min/1.73 [place] [address]-9) NOT ACCURATE CREATININE CLEARANCE IN PREDICTING GLOMERULAR FILTRATION RATE . ESTIMATED GFR I S NOT APPLICABLE FOR DIALYSIS PATIENTS. JING (test code = JING) Roaster Helper ID - PIJOSE Luketor ID - PIAYA L Lab Interpretation Abnormal (test code = 02659-9) [facility] METABOLIC [id number] 07:59:03 Test Item Value Reference Range Interpretation [...] S NOT APPLICABLE FOR DIALYSIS PATIEN TS. Roaster Helper ID - MARTINA CASTANON - MARTINA [id number] 06:48:32 Test Item Value Reference Range Interpretation Comments Magnesium (test code = 1.7 mg/dL 1.6-2.6 21381-0) JING (test code = JING) Roaster Helper ID - MARTINA L Lab Interpretation (test Normal code = 58012-4) [facility] Test Item Value Reference Range Interpretation Comments Magnesium (test code = 1.7 mg/dL 1.6-2.6 29458-7) JING (test code = JING) Roaster Helper ID - MARTINA L Lab Interpretation (test Normal code = 72263-8) [facility] 06:48:32 Test Item Value Reference Range Interpretation Comments Magnesium (test code = 1.7 mg/dL 1.6-2.6 06403-4) JING (test code = JING) Roaster Helper ID - PIAYA L Lab Interpretation (test Normal code = 95011-1) [facility] 06:48[facility]32 Test Item Value Reference Range Interpretation Comments Magnesium (test code = 1.7 mg/dL 1.6-2.6 00965-4) JING (test code = JING) Roaster Helper ID - PIJOSE L Lab Interpretation (test Normal code = 52844-7) [facility] Test Item Value Reference Range Interpretation Comments MAGNESIUM (BEAKER) (test code = 1.7 mg/dL 1.6-2.6 627) Roaster Helper ID - PIAYA LCBC with platelet count + automated [id number] 06:04:12 Test Item Value Reference Range Interpretation Comments WBC (test code = 6690-2) 7.6 See_Comment [A utomated message] The system [employer] generated this result transmitted ref erence range: 3.5 - 10 .5 K/L. The refe rence range was not u sed to interpret this result as normal/abnor mal. RBC (test code = 789-8) 3.49 See_Comment L [Au tomated message] The system [employer] generated this result transmitted ref erence range: 3.93 - 5 .22 M/L. The refe rence range was not u sed to interpret this result as normal/abnor mal. MCHC (test code = 786-4) 32.7 See_Comment L [A utomated message] The system [employer] generated this result transmitted ref erence range: [...] See_Comment [Aut omated message] 777-3) The system [employer] generated this result transmitted ref erence range: 150 - 45 0 K/CU MM. The referen ce range was not u sed to interpret this result as normal/abnor mal. MPV (test code = 12.3 fL 9.4-12.3 61238-8) nRBC (test code = 413) 0 See_Comment [Aut omated message] The system [employer] generated this result transmitted ref erence range: [...] See_Comment [Aut omated message] 670) The system [employer] generated this result transmitted ref erence range: 1.56 - 6 .13 K/L. The refe rence range was not u sed to interpret this result as normal/abnor mal. # Lymphs (test code = 2.95 See_Comment [Auto mated message] 414) The system [employer] generated this result transmitted ref erence range: 1.18 - 3 .74 K/L. The refe rence range was not u sed to interpret this result as normal/abnor mal. # Monos (test code = 0.56 See_Comment H [Autom ated message] 415) The system [employer] generated this result transmitted ref erence range: 0.24 - 0 .36 K/L. The refe rence range was not u sed to interpret this result as normal/abnor mal. # Eos (test code = 416) 0.14 See_Comment [Au tomated message] The system [employer] generated this result transmitted ref erence range: 0.04 - 0 .36 K/L. The refe rence range was not u sed to interpret this result as normal/abnor mal. # Baso (test code = 417) 0.06 See_Comment [A utomated message] The system [employer] generated this result transmitted ref erence range: 0.01 - 0 .08 K/L. The refe rence range was not u sed to interpret this result as normal/abnor mal. Immature 0 % 0-1 Granulocytes-Relative (test code = 2801) Lab Interpretation (test Abnormal code = 41755-7) [facility] with platelet count + automated [id number] 06:04:12 Test Item Value Reference Range Interpretation Comments WBC (test code = 6690-2) 7.6 See_Comment [A utomated message] The system [employer] generated this result transmitted ref erence range: 3.5 - 10 .5 K/L. The refe rence range was not u sed to interpret this result as normal/abnor mal. RBC (test code = 789-8) 3.49 See_Comment L [Au tomated message] The system [employer] generated this result transmitted ref erence range: 3.93 - 5 .22 M/L. The refe rence range was not u sed to interpret this result as normal/abnor mal. MCHC (test code = 786-4) 32.7 See_Comment L [A utomated message] The system [employer] generated this result transmitted ref erence range: [...] See_Comment [Aut omated message] 777-3) The system [employer] generated this result transmitted ref erence range: 150 - 45 0 K/CU MM. The referen ce range was not u sed to interpret this result as normal/abnor mal. MPV (test code = 12.3 fL 9.4-12.3 03797-7) nRBC (test code = 413) 0 See_Comment [Aut omated message] The system [employer] generated this result transmitted ref erence range: [...] See_Comment [Aut omated message] 670) The system [employer] generated this result transmitted ref erence range: 1.56 - 6 .13 K/L. The refe rence range was not u sed to interpret this result as normal/abnor mal. # Lymphs (test code = 2.95 See_Comment [Auto mated message] 414) The system [employer] generated this result transmitted ref erence range: 1.18 - 3 .74 K/L. The refe rence range was not u sed to interpret this result as normal/abnor mal. # Monos (test code = 0.56 See_Comment H [Autom ated message] 415) The system [employer] generated this result transmitted ref erence range: 0.24 - 0 .36 K/L. The refe rence range was not u sed to interpret this result as normal/abnor mal. # Eos (test code = 416) 0.14 See_Comment [Au tomated message] The system [employer] generated this result transmitted ref erence range: 0.04 - 0 .36 K/L. The refe rence range was not u sed to interpret this result as normal/abnor mal. # Baso (test code = 417) 0.06 See_Comment [A utomated message] The system [employer] generated this result transmitted ref erence range: 0.01 - 0 .08 K/L. The refe rence range was not u sed to interpret this result as normal/abnor mal. Immature 0 % 0-1 Granulocytes-Relative (test code = 2801) Lab Interpretation (test Abnormal code = 72295-5) [facility] with platelet count + automated [id number] 06:04:12 Test Item Value Reference Range Interpretation Comments WBC (test code = 6690-2) 7.6 See_Comment [A utomated message] The system [employer] generated this result transmitted ref erence range: 3.5 - 10 .5 K/L. The refe rence range was not u sed to interpret this result as normal/abnor mal. RBC (test code = 789-8) 3.49 See_Comment L [Au tomated message] The system [employer] generated this result transmitted ref erence range: 3.93 - 5 .22 M/L. The refe rence range was not u sed to interpret this result as normal/abnor mal. MCHC (test code = 786-4) 32.7 See_Comment L [A utomated message] The system [employer] generated this result transmitted ref erence range: [...] See_Comment [Aut omated message] 777-3) The system [employer] generated this result transmitted ref erence range: 150 - 45 0 K/CU MM. The referen ce range was not u sed to interpret this result as normal/abnor mal. MPV (test code = 12.3 fL 9.4-12.3 43367-2) nRBC (test code = 413) 0 See_Comment [Aut omated message] The system [employer] generated this result transmitted ref erence range: [...] See_Comment [Aut omated message] 670) The system [employer] generated this result transmitted ref erence range: 1.56 - 6 .13 K/L. The refe rence range was not u sed to interpret this result as normal/abnor mal. # Lymphs (test code = 2.95 See_Comment [Auto mated message] 414) The system [employer] generated this result transmitted ref erence range: 1.18 - 3 .74 K/L. The refe rence range was not u sed to interpret this result as normal/abnor mal. # Monos (test code = 0.56 See_Comment H [Autom ated message] 415) The system [employer] generated this result transmitted ref erence range: 0.24 - 0 .36 K/L. The refe rence range was not u sed to interpret this result as normal/abnor mal. # Eos (test code = 416) 0.14 See_Comment [Au tomated message] The system [employer] generated this result transmitted ref erence range: 0.04 - 0 .36 K/L. The refe rence range was not u sed to interpret this result as normal/abnor mal. # Baso (test code = 417) 0.06 See_Comment [A utomated message] The system [employer] generated this result transmitted ref erence range: 0.01 - 0 .08 K/L. The refe rence range was not u sed to interpret this result as normal/abnor mal. Immature 0 % 0-1 Granulocytes-Relative (test code = 2801) Lab Interpretation (test Abnormal code = 51610-0) [facility] with platelet count + automated [id number] 06:04:12 Test Item Value Reference Range Interpretation Comments WBC (test code = 6690-2) 7.6 See_Comment [A utomated message] The system [employer] generated this result transmitted ref erence range: 3.5 - 10 .5 K/L. The refe rence range was not u sed to interpret this result as normal/abnor mal. RBC (test code = 789-8) 3.49 See_Comment L [Au tomated message] The system [employer] generated this result transmitted ref erence range: 3.93 - 5 .22 M/L. The refe rence range was not u sed to interpret this result as normal/abnor mal. MCHC (test code = 786-4) 32.7 See_Comment L [A utomated message] The system [employer] generated this result transmitted ref erence range: [...] See_Comment [Aut omated message] 777-3) The system [employer] generated this result transmitted ref erence range: 150 - 45 0 K/CU MM. The referen ce range was not u sed to interpret this result as normal/abnor mal. MPV (test code = 12.3 fL 9.4-12.3 87367-5) nRBC (test code = 413) 0 See_Comment [Aut omated message] The system [employer] generated this result transmitted ref erence range: [...] See_Comment [Aut omated message] 670) The system [employer] generated this result transmitted ref erence range: 1.56 - 6 .13 K/L. The refe rence range was not u sed to interpret this result as normal/abnor mal. # Lymphs (test code = 2.95 See_Comment [Auto mated message] 414) The system [employer] generated this result transmitted ref erence range: 1.18 - 3 .74 K/L. The refe rence range was not u sed to interpret this result as normal/abnor mal. # Monos (test code = 0.56 See_Comment H [Autom ated message] 415) The system [employer] generated this result transmitted ref erence range: 0.24 - 0 .36 K/L. The refe rence range was not u sed to interpret this result as normal/abnor mal. # Eos (test code = 416) 0.14 See_Comment [Au tomated message] The system [employer] generated this result transmitted ref erence range: 0.04 - 0 .36 K/L. The refe rence range was not u sed to interpret this result as normal/abnor mal. # Baso (test code = 417) 0.06 See_Comment [A utomated message] The system [employer] generated this result transmitted ref erence range: 0.01 - 0 .08 K/L. The refe rence range was not u sed to interpret this result as normal/abnor mal. Immature 0 % 0-1 Granulocytes-Relative (test code = 2801) Lab Interpretation (test Abnormal code = 93175-5) [facility] with platelet count + automated [id number] 06:04:12 Test Item Value Reference Range Interpretation Comments WBC (test code = 6690-2) 7.6 See_Comment [A utomated message] The system [employer] generated this result transmitted ref erence range: 3.5 - 10 .5 K/L. The refe rence range was not u sed to interpret this result as normal/abnor mal. RBC (test code = 789-8) 3.49 See_Comment L [Au tomated message] The system [employer] generated this result transmitted ref erence range: 3.93 - 5 .22 M/L. The refe rence range was not u sed to interpret this result as normal/abnor mal. MCHC (test code = 786-4) 32.7 See_Comment L [A utomated message] The system [employer] generated this result transmitted ref erence range: [...] code = 193 See_Comment [Aut omated message] 767-3) The system [employer] generated this result transmitted ref erence range: 150 - 45 0 K/CU MM. The referen ce range was not u sed to interpret this result as normal/abnor mal. MPV (test code = 12.3 fL 9.4-12.3 20366-5) nRBC (test code = 413) 0 See_Comment [Aut omated message] The system [employer] generated this result transmitted ref erence range: [...] See_Comment [Aut omated message] 670) The system [employer] generated this result transmitted ref erence range: 1.56 - 6 .13 K/L. The refe rence range was not u sed to interpret this result as normal/abnor mal. # Lymphs (test code = 2.95 See_Comment [Auto mated message] 414) The system [employer] generated this result transmitted ref erence range: 1.18 - 3 .74 K/L. The refe rence range was not u sed to interpret this result as normal/abnor mal. # Monos (test code = 0.56 See_Comment H [Autom ated message] 415) The system [employer] generated this result transmitted ref erence range: 0.24 - 0 .36 K/L. The refe rence range was not u sed to interpret this result as normal/abnor mal. # Eos (test code = 416) 0.14 See_Comment [Au tomated message] The system [employer] generated this result transmitted ref erence range: 0.04 - 0 .36 K/L. The refe rence range was not u sed to interpret this result as normal/abnor mal. # Baso (test code = 417) 0.06 See_Comment [A utomated message] The system [employer] generated this result transmitted ref erence range: 0.01 - 0 .08 K/L. The refe rence range was not u sed to interpret this result as normal/abnor mal. Immature 0 % 0-1 Granulocytes-Relative (test code = 2801) Lab Interpretation (test Abnormal code = 55411-7) [facility] W/PLT COUNT & AUTO [id number] 06:04:12 Test Item Value Reference Range Interpretation [...] PERCENT (BEAKER) (test code = 2801) POCT-GLUCOSE [id number] 01:14:17 Test Item Value Reference Range Interpretation Comments POC-GLUCOSE METER 107 mg/dL 70-110 : TESTED A T [facility] 6720 (BEAKER) (test code = FUNMI PEARSON [place], 1538) [address]: Roaster Helper/Techni tenisha ID = [id number] for Sandie Anderson [id number] 10:54:48 Test Item Value Reference Range Interpretation Comments Right (test code = Type C Peak is on Left Right) Left (test code = Left) Type B Curve [facility]
--- NOTE | 2022-05-10 18:02 | RAD REPORT ---
EXAM DESCRIPTION: RAD - Chest Single View - 05/10/2022 5:53 pm CLINICAL HISTORY: syncope COMPARISON: Chest Single View dated 04/11/2022; Chest Single View dated 05/27/2021; Chest Single View dated 05/22/2021; Chest Single View dated 01/04/2020 FINDINGS: Lines: None. Lungs: No evidence of edema or pneumonia. Pleural: No significant pleural effusions or pneumothorax. Cardiac: The heart size is within normal limits. Mediastinum: Within normal limits. Bones: No acute fractures. Other: None IMPRESSION: No acute cardiopulmonary disease.
[2022-05-10] MEDS ORDERED: ONDANSETRON 4 MG/2 ML VIAL ONE (18:04)
[2022-05-10] MEDS ORDERED: MORPHINE 4 MG/ML SYR ONE (18:04)
[2022-05-10 18:11] LABS: Lymphocytes % 20.4 % (15.3-44.8); MCV 88.1 fL (80-100); MPV 10.3 fL (7.6-11.3); Potassium 3.8 mmol/L (3.5-5.1); Protime INR 1.02; RBC Red Blood Cell Count 3.64 M/uL (3.86-4.86); Troponin High Sensitivity 7.3 pg/mL (<58.9)
--- NOTE | 2022-05-10 18:24 | RAD REPORT ---
EXAM DESCRIPTION: CT - Head Brain Wo Cont - 05/10/2022 6:11 pm CLINICAL HISTORY: Syncope, fall COMPARISON: 04/11/2022 TECHNIQUE: All CT scans are performed using dose optimization technique as appropriate and may inclu de automated exposure control or mA/KV adjustment according to patient size. FINDINGS: No intracranial hemorrhage, hydrocephalus or extra-axial fluid collection.No areas of brai n edema or evidence of midline shift. The paranasal sinuses and mastoids are clear. The calvarium is intact. IMPRESSION: No acute intracranial abnormality.
--- NOTE | 2022-05-10 18:27 | RAD REPORT ---
EXAM DESCRIPTION: CTChest Abd Pelvis Wo Con - 05/10/2022 6:11 pm CLINICAL HISTORY: Left flank pain s/p fall COMPARISON: Chest For Pe Angio dated 12/03/2017; THORAX W CONTRAST dated 01/26/2015; CTANGIO CHEST date d 04/14/2013; Head Brain Wo Cont dated 05/10/2022 TECHNIQUE: CT of the chest, abdomen, and pelvis was performed. All CT scans are performed using dose optimization technique as appropriate and may include automated exposure control or mA/KV adjustment according to patient size. FINDINGS: Thorax: Chest Wall: No abnormal mass Lungs: No acute abnormality. Pleura: No effusions or pneumothorax. Joann/Mediastinum: No lymphadenopathy. Aorta/Pulmonary Arteries: Unremarkable Heart: Normal size. Scattered coronary artery calcifications. Abdomen/Pelvis: Liver: No acute abnormality or suspicious lesions. Biliary: No biliary ductal dilatation. Cholecystectomy Stomach: No significant focal abnormality. Duodenum: No significant focal abnormality. Pancreas: No significant abnormality. Spleen: No significant abnormality. Adrenal: No suspicious lesions. Kidney/ureter: No hydronephrosis. Punctate renal calculi versus renal vascular calcifications bilater ally. Retroperitoneum: No retroperitoneal adenopathy. Vascular: No aneurysm. Atherosclerosis. Bowel: No significant focal abnormality. Peritoneum: No ascites or free air. Bladder: Grossly unremarkable. Reproductive: Calcified uterine fibroids. Bones: No acute fracture. Other: n/a IMPRESSION: No evidence significant trauma to the chest, abdomen, or pelvis.
--- NOTE | 2022-05-10 20:07 | ER ---
Nurse's Notes [facility] Name: Yadira Land Age: 72 yrs Sex: Female : 1950 Arrival Date: 05/10/2022 Time: 17:20 Bed 4 Private MD: Diagnosis: Fall on same level, unspecified;Contusion of right front wall of thorax Presentation: 05/10 17:23 Chief complaint: EMS states: MX WITNESSED SYNCOPAL EPISODES THIS WEEK. Coronavirus bp screen: At this time, the client does not indicate any symptoms associated with coronavirus-19. Ebola Screen: No symptoms or risks identified at this time. Initial Sepsis Screen: Does the patient meet any 2 criteria? No. Patient's initial sepsis screen is negative. Does the patient have a suspected source of infection? No. Patient's initial sepsis screen is negative. Risk Assessment: Do you want to hurt yourself or someone else? Patient reports no desire to harm self or others. Onset of symptoms is unknown. Care prior to arrival: IV initiated. 20 GA, in the left antecubital area, Glucose check: 219. 17:23 Method Of Arrival: EMS: [facility] bp 17:23 Acuity: KARSTEN 3 bp Triage Assessment: 17:24 General: Appears in no apparent distress. Behavior is cooperative, appropriate for age, bp anxious. Pain: Complains of pain in right flank. EENT: No deficits noted. Neuro: No deficits noted. Cardiovascular: Rhythm is sinus rhythm. Respiratory: No deficits noted. GI: No signs and/or symptoms were reported involving the gastrointestinal system. : No signs and/or symptoms were reported regarding the genitourinary system. Derm: No deficits noted. Musculoskeletal: No deficits noted. Historical: - Allergies: 17:24 No Known Allergies; bp - Home Meds: 17:24 aspirin 81 mg Oral cap 1 cap once daily [Active]; atorvastatin 40 mg Oral tab 1 tab bp once daily [Active]; celecoxib 200 mg Oral cap 1 cap once daily [Active]; chlorthalidone 25 mg Oral tab 1 tab once daily [Active]; citalopram 10 mg tab 1 tab once daily [Active]; clopidogrel 75 mg Oral tab 1 tab once daily [Active]; folic acid 1 mg Oral tab 1 tab once daily [Active]; gabapentin 800 mg Oral tab 1 tab 3 times per day [Active]; losartan 100 mg Oral tab 1 tab once daily [Active]; montelukast 5 mg Oral chew 2 tabs once daily [Active]; - PMHx: 17:24 Diabetes - NIDDM; Hypertension; bp - Immunization history:: Adult Immunizations up to date. - Social history:: Smoking status: Patient denies any tobacco usage or history of. Screenin:26 [facility] ED Fall Risk Assessment (Adult) History of falling in the last 3 months, bp including since admission Yes- physiologic fall (2 pts). Humpty Dumpty Scale Fall Assessment Tool (age< 18yrs) Age 13 years and above (1 pt). Abuse screen: Denies threats or abuse. Denies injuries from another. Nutritional screening: No deficits noted. Tuberculosis screening: No symptoms or risk factors identified. Fall Risk Fall in past 12 months (25 points). Assessment: 17:26 General: SEE TRIAGE NOTE. bp 18:28 Reassessment: PT RETURNED FROM CT. bp 19:25 General: Appears in no apparent distress. Behavior is calm, cooperative. Pain: as6 Complains of pain in right flank. Neuro: Denies dizziness. Vital Signs: 17:23 BP 124 / 64; Pulse 88; Resp 16; Temp 98; Pulse Ox 97% ; bp 18:27 BP 140 / 64; Pulse 87; Resp 16; Pulse Ox 99% ; bp 19:16 BP 141 / 65 Supine; Pulse 86; as6 19:18 BP 123 / 63 Sitting; Pulse 85; as6 19:20 BP 105 / 49 Standing; Pulse 89; as6 20:15 BP 153 / 68; Pulse 88; Resp 18 S; Pulse Ox 94% on R/A; as6 ED Course: 17:20 Patient arrived in ED. em1 17:23 Vincent Mcintyre, MAIKEL is Primary Nurse. bp 17:23 Osorio Null NP is PHCP. pm1 17:23 Dave Medina MD is Attending Physician. pm1 17:24 Triage completed. bp 17:24 Arm band placed on. bp 17:26 Patient has correct armband on for positive identification. Bed in low position. Call bp light in reach. Side rails up X2. Adult w/ patient. 17:26 Maintain EMS IV. Dressing intact. Good blood return noted. Site clean \T\ dry. Gauge \T\ bp site: 20 GA LEFT AC. 17:55 XRAY Chest (1 view) In Process Unspecified. EDMS 18:13 CT Head Brain wo Cont In Process Unspecified. EDMS 18:13 Chest Abd Pelvis Wo Con In Process Unspecified. EDMS 20:05 Cirilo Keith MD is Referral Physician. pm1 20:13 No provider procedures requiring assistance completed. as6 20:19 IV discontinued, intact, bleeding controlled, No redness/swelling at site. Pressure as6 dressing applied. Administered Medications: 18:10 Drug: morphine 4 mg Route: IVP; Infused Over: 4 mins; Site: left forearm; bp 20:19 Follow up: Response: No adverse reaction as6 18:10 Drug: Zofran (Ondansetron) 4 mg Route: IVP; Site: left forearm; bp 20:19 Follow up: Response: No adverse reaction as6 19:45 Drug: NS 0.9% 500 ml Route: IV; Rate: bolus; Site: left antecubital; as6 20:19 Follow up: Response: No adverse reaction; IV Status: Completed infusion; IV Intake: as6 500ml Medication: 17:26 VIS not applicable for this client. bp Intake: 20:19 IV: 500ml; Total: 500ml. as6 Outcome: 20:06 Discharge ordered by . pm1 20:16 Condition: stable as6 20:19 Discharged to home via wheelchair, with family. as6 20:19 Discharge instructions given to patient, family, Instructed on discharge instructions, follow up and referral plans. Demonstrated understanding of instructions, follow-up care. 20:19 Patient left the ED. as6 Signatures: Dispatcher [employer] Christian Simpson em1 Osorio Null, BRENDAN CHOPPING MACHINE OPERATOR pm1 Vincent Mcintyre RN RN bp Theo Green RN RN as6 Corrections: (The following items were deleted from the chart) 19:01 18:27 Pulse 87bpm; Resp 16bpm; Pulse Ox 99%; bp bp
--- NOTE | 2022-05-10 20:07 | EDPHYS ---
Physician Documentation [facility] [place] Name: Yadira Land Age: 72 yrs Sex: Female : 1950 Arrival Date: 05/10/2022 Time: 17:20 Bed 4 Private MD: ED Physician Dave Medina HPI: 05/10 17:33 This 72 yrs old Female presents to ER via EMS with complaints of Syncope. pm1 17:33 The patient has experienced syncope. Onset: The symptoms/episode began/occurred 1 pm1 hour(s) ago. Duration: This was a single episode. Context: the episode(s) was witnessed, by family, , occurred at home, occurred while the patient was walking, Just prior to the episode the patient experienced no apparent symptoms. Associated injury: Other: right rib pain. Associated signs and symptoms: Pertinent negatives: abdominal pain, chest pain, numbness, shortness of breath, tingling. The patient has experienced similar episodes in the past, several times. The patient has not recently seen a physician, Patient was seen about 1 month ago and transferred to [facility]. Patient was diagnosed with TIA and was told at the [facility] that she does not have 80% occlusion of carotid but rather 30% occlusion. Told no need for intervention at the moment. Historical: - Allergies: 17:24 No Known Allergies; bp - Home Meds: 17:24 aspirin 81 mg Oral cap 1 cap once daily [Active]; atorvastatin 40 mg Oral tab 1 tab bp once daily [Active]; celecoxib 200 mg Oral cap 1 cap once daily [Active]; chlorthalidone 25 mg Oral tab 1 tab once daily [Active]; citalopram 10 mg tab 1 tab once daily [Active]; clopidogrel 75 mg Oral tab 1 tab once daily [Active]; folic acid 1 mg Oral tab 1 tab once daily [Active]; gabapentin 800 mg Oral tab 1 tab 3 times per day [Active]; losartan 100 mg Oral tab 1 tab once daily [Active]; montelukast 5 mg Oral chew 2 tabs once daily [Active]; - PMHx: 17:24 Diabetes - NIDDM; Hypertension; bp - Immunization history:: Adult Immunizations up to date. - Social history:: Smoking status: Patient denies any tobacco usage or history of. ROS: 17:33 Constitutional: Negative for fever, chills, and weight loss, Cardiovascular: Negative pm1 for chest pain, palpitations, and edema, Respiratory: Negative for shortness of breath, cough, wheezing, and pleuritic chest pain, Abdomen/GI: Negative for abdominal pain, nausea, vomiting, diarrhea, and constipation, MS/Extremity: Negative for injury and deformity, Skin: Negative for injury, rash, and discoloration. 17:33 Neuro: Positive for syncope, Negative for numbness, tingling, weakness. 17:33 All other systems are negative. pm1 Exam: 17:33 Constitutional: This is a well developed, well nourished patient who is awake, alert, pm1 and in no acute distress. Head/Face: Normocephalic, atraumatic. 17:33 Cardiovascular: Regular rate and rhythm with a normal S1 and S2. No gallops, murmurs, or rubs. Normal PMI, no JVD. No pulse deficits. Respiratory: Lungs have equal breath sounds bilaterally, clear to auscultation and percussion. No rales, rhonchi or wheezes noted. No increased work of breathing, no retractions or nasal flaring. 17:33 Back: No spinal tenderness. No costovertebral tenderness. Full range of motion. Skin: Warm, dry with normal turgor. Normal color with no rashes, no lesions, and no evidence of cellulitis. MS/ Extremity: Pulses equal, no cyanosis. Neurovascular intact. Full, normal range of motion. 17:33 Eyes: Exam is negative for acute changes, Periorbital structures: no acute changes, Extraocular movements: no acute changes. 17:33 Chest/axilla: Inspection: normal, Palpation: tenderness, that is moderate, of the right lateral anterior chest. 17:33 Abdomen/GI: Exam negative for acute changes, Inspection: abdomen appears normal, Palpation: abdomen is soft and non-tender, in all quadrants. 17:33 Neuro: Exam negative for acute changes, Orientation: is normal, Mentation: is normal, Motor: is normal, moves all fours. Vital Signs: 17:23 BP 124 / 64; Pulse 88; Resp 16; Temp 98; Pulse Ox 97% ; bp 18:27 BP 140 / 64; Pulse 87; Resp 16; Pulse Ox 99% ; bp 19:16 BP 141 / 65 Supine; Pulse 86; as6 19:18 BP 123 / 63 Sitting; Pulse 85; as6 19:20 BP 105 / 49 Standing; Pulse 89; as6 20:15 BP 153 / 68; Pulse 88; Resp 18 S; Pulse Ox 94% on R/A; as6 MDM: 17:24 Patient medically screened. pm1 18:27 Data reviewed: vital signs. Data interpreted: Pulse oximetry: on room air is 97 %. pm1 Interpretation: normal. 18:27 ED course: Patient's BUN/creatinine 30/2.33. Reviewed prior labs from prvious ER visits pm1 and patient is at her baseline chronic renal disease. BUN and Cr 03/18: 32/1.81 and 04/11: 38/2.04. 18:34 ED course: Patient informed of CT chest, abdomen, pelvis results. Pending CT head pm1 results. 19:00 ED course: [place] Syncope Rule = negative for systolic blood pressure less than pm1 90, negative for shortness of breath, negative for history CHF, normal EKG, hematocrit greater than 30 = low risk for serious outcome requiring admission. 19:06 Physician consultation: Cirilo Keith MD was called at 19:06, was contacted at 19:06, pm1 regarding patient's condition, and will see patient in office, discussed work up is negative except for chronic renal insufficiency at baseline. Will check orthostatics prior to discharge. 19:06 Counseling: I had a detailed discussion with the patient and/or guardian regarding: lab pm1 results, radiology results, the need for outpatient follow up, to return to the emergency department if symptoms worsen or persist or if there are any questions or concerns that arise at home, Discussed with patient and family conversation with Dr Keith and to call his office tomorrow for follow up next week. 05/10 17:33 Order name: Basic Metabolic Panel; Complete Time: 18:25 pm1 05/10 17:33 Order name: CBC with Diff; Complete Time: 18:34 pm1 05/10 17:33 Order name: CT Head Brain wo Cont; Complete Time: 18:25 pm1 05/10 17:33 Order name: PT-INR; Complete Time: 18:25 pm1 05/10 17:33 Order name: Troponin HS; Complete Time: 18:25 pm1 05/10 17:33 Order name: XRAY Chest (1 view); Complete Time: 18:25 pm1 05/10 17:33 Order name: EKG; Complete Time: 17:34 pm1 05/10 17:33 Order name: Cardiac monitoring; Complete Time: 18:50 pm1 05/10 17:33 Order name: EKG - Nurse/Tech; Complete Time: 18:50 pm1 05/10 17:33 Order name: CT Chest Abdomen Pelvis W/O Contrast pm1 05/10 17:39 Order name: Chest Abd Pelvis Wo Con; Complete Time: 18:30 EDMS 05/10 17:33 Order name: IV Saline Lock; Complete Time: 17:35 pm1 05/10 17:33 Order name: Labs collected and sent; Complete Time: 17:35 pm1 05/10 17:33 Order name: O2 Per Protocol; Complete Time: 17:35 pm1 05/10 17:33 Order name: O2 Sat Monitoring; Complete Time: 17:35 pm1 05/10 18:49 Order name: Orthostatic Blood Pressure; Complete Time: 19:25 pm1 EC:59 Rate is 84 beats/min. Rhythm is regular, Normal Sinus Rhythm with No ectopy. QRS [place] pm1 is Normal. DE interval is normal. QRS interval is normal. QT interval is normal. No Q waves. T waves are Normal. No ST changes noted. Clinical impression: Normal ECG. No change from previous ECG on April 11, 2022. Administered Medications: 18:10 Drug: morphine 4 mg Route: IVP; Infused Over: 4 mins; Site: left forearm; bp 20:19 Follow up: Response: No adverse reaction as6 18:10 Drug: Zofran (Ondansetron) 4 mg Route: IVP; Site: left forearm; bp 20:19 Follow up: Response: No adverse reaction as6 19:45 Drug: NS 0.9% 500 ml Route: IV; Rate: bolus; Site: left antecubital; as6 20:19 Follow up: Response: No adverse reaction; IV Status: Completed infusion; IV Intake: as6 500ml Disposition Summary: 05/10/22 20:06 Discharge Ordered Location: Home pm1 Problem: new pm1 Symptoms: have improved pm1 Condition: Stable pm1 Diagnosis - Fall on same level, unspecified pm1 - Contusion of right front wall of thorax pm1 Followup: pm1 - With: Emergency Department - When: As needed - Reason: Worsening of condition Followup: pm1 - With: Cirilo Keith MD - When: 2 - 3 days - Reason: Recheck today's complaints, Continuance of care, Re-evaluation by your physician Discharge Instructions: - Discharge Summary Sheet pm1 - Contusion pm1 - Fall Prevention in the Home, Adult pm1 Forms: - Medication Reconciliation Form pm1 - Thank You Letter pm1 - Antibiotic Education pm1 - Prescription Opioid Use pm1 Signatures: Dispatcher [employer] EDMS Osorio Null, BRENDAN CARRIAGE OPERATOR pm1 Vincent Mcintyre, RN RN bp Theo Green, MAIKEL RN as6
[2022-05-10 20:34] VITALS: TEMP 98
[2022-05-10 20:53] VITALS: BP 153/68; O2SAT 94
--- NOTE | 2022-05-11 12:52 | EKG ---
Test Date: 2022-05-10 Test Time: 18:45:00 Copy Writer: RUDOLPH MEASUREMENT RESULTS: Intervals: Rate: 84 NH: 150 QRSD: 78 QT: 408 QTc: 482 Hubbard: P: 82 NH: 150 QRS: 59 T: 92 INTERPRETIVE STATEMENTS: Normal sinus rhythm Nonspecific T wave abnormality Prolonged QT Abnormal ECG Compared to ECG 04/11/2022 12:33:46 T-wave abnormality now present Prolonged QT interval now present Electronically Signed On 05-11-22 12:51:18 SQL REPORT ANALYST by Umair Ramírez
== END 2022-05-10 20:19 | disposition home or self-care (01) ==
LOC: ER 17:17
DX: S20.211A Contusion of right front wall of thorax, initial encounter (principal); W18.30XA Fall on same level, unspecified, initial encounter; E11.9 Type 2 diabetes mellitus without complications; I10 Essential (primary) hypertension; Z79.82 Long term (current) use of aspirin
CPT/HCPCS: 96361; 93005; 85025; 80048; 36415; 85610; 84484; 70450; 71250; 74176; 71045; 96375; 96374; 99284; J2405

== ENCOUNTER 2022-07-17 08:35 | Emergency (ER) | payer MEDICARE, OTHER ==
[2022-07-17] MEDS ORDERED: NA CHLORIDE 0.9% 500 ML ONE (08:56)
[2022-07-17] MEDS ORDERED: MECLIZINE HCL 12.5 MG TAB ONE (08:56)
[2022-07-17 09:19] LABS: Absolute Lymphocytes (CBC) 1.8 K/uL (0.7-4.9); Hematocrit 36.5 % (36.0-45.0); Lymphocytes % 27.8 % (15.3-44.8); MCV 87.9 fL (80-100); MPV 9.9 fL (7.6-11.3); RBC Red Blood Cell Count 4.16 M/uL (3.86-4.86)
[2022-07-17 09:22] LABS: Protime INR 0.97
[2022-07-17 09:39] LABS: Troponin High Sensitivity 4.4 pg/mL (<58.9)
[2022-07-17 09:41] LABS: Magnesium 2.3 mg/dL (1.6-2.4); Potassium 4.2 mmol/L (3.5-5.1)
--- NOTE | 2022-07-17 09:49 | RAD REPORT ---
EXAM DESCRIPTION: CT - Head Brain Wo Cont - 07/17/2022 9:37 am CLINICAL HISTORY: DIZZINESS Headache, drowsiness and dizziness COMPARISON: Head Brain Wo Cont dated 05/10/2022; Ct Stroke Brain Wo Cont dated 04/11/2022 TECHNIQUE: All CT scans are performed using dose optimization technique as appropriate and may inclu de automated exposure control or mA/KV adjustment according to patient size. FINDINGS: No intracranial hemorrhage, hydrocephalus or extra-axial fluid collection.Mild generalized brain atrophy is present with mild periventricular and deep white matter chronic microvascular ische ed changes.No areas of brain edema or evidence of midline shift. Partial left mastoid effusion. Paranasal sinuses and mastoids otherwise clear. The calvarium is intac t. Mild vertebral atherosclerosis. IMPRESSION: No acute intracranial abnormality.
[2022-07-17 10:19] LABS: Urine Blood Negative (Negative); Urine Glucose 3+ (Negative); Urine Protein Negative (Negative); Urine Specific Gravity 1.015 (1.005-1.030)
--- NOTE | 2022-07-17 10:57 | RAD REPORT ---
EXAM DESCRIPTION: MRI - Brain Wo Cont - 07/17/2022 10:28 am CLINICAL HISTORY: DIZZINESS Headache, drowsiness COMPARISON: Head Brain Wo Cont dated 07/17/2022 TECHNIQUE: Multi-sequence, multiplanar MR imaging of the brain was performed without contrast. FINDINGS: No intracranial hemorrhage, hydrocephalus or extra-axial fluid collections.Mild confluent T2/FLAIR hyperintensity in the periventricular and deep white matter is present compatible with chron ic microvascular ischemic changes. No edema or shift of midline structures. No findings to suspect br ain mass. DWI is negative for acute CVA. Midline structures are normally formed. Mastoid air cells and paranasal sinuses are clear. IMPRESSION: Negative for acute CVA or other acute intracranial abnormality.
--- NOTE | 2022-07-17 11:48 | ER ---
Nurse's Notes [facility] Name: Yadira Land Age: 72 yrs Sex: Female : 1950 Arrival Date: 07/17/2022 Time: 08:38 Bed 8 Private MD: Diagnosis: Dizziness and giddiness;Vertigo Presentation: 07/17 08:38 Chief complaint: Patient states: dizziness, nausea, and headache that began yesterday. aa5 Pt reports pain to Right knee, states "I know I am supposed to have knee surgery but don't know when yet". 08:38 Coronavirus screen: At this time, the client does not indicate any symptoms associated aa5 with coronavirus-19. Ebola Screen: Patient denies travel to an Ebola-affected area in the 21 days before illness onset. Initial Sepsis Screen: Does the patient meet any 2 criteria? No. Patient's initial sepsis screen is negative. Does the patient have a suspected source of infection? No. Patient's initial sepsis screen is negative. Risk Assessment: Do you want to hurt yourself or someone else? Patient reports no desire to harm self or others. Onset of symptoms was June 2022. 08:38 Acuity: KARSTEN 3 aa5 08:38 Method Of Arrival: Wheelchair aa5 Historical: - Allergies: 08:46 No Known Allergies; aa5 - PMHx: 08:46 Diabetes - NIDDM; Hypertension; aa5 - Immunization history:: Adult Immunizations unknown. - Family history:: not pertinent. - Social history:: Smoking status: Patient denies any tobacco usage or history of. - Hospitalizations: : No recent hospitalization is reported. Screenin:06 [facility] ED Fall Risk Assessment (Adult) History of falling in the last 3 months, ph including since admission No falls in past 3 months (0 pts). Abuse screen: Denies threats or abuse. Denies injuries from another. Nutritional screening: No deficits noted. Tuberculosis screening: No symptoms or risk factors identified. Assessment: 09:05 General: Appears in no apparent distress. comfortable, Behavior is calm, cooperative, ph appropriate for age. Pain: Complains of pain in right knee. Neuro: Level of Consciousness is awake, alert, obeys commands, Oriented to person, place, time, situation, Reports dizziness. Cardiovascular: Capillary refill < 3 seconds in bilateral fingers Patient's skin is warm and dry. Respiratory: Airway is patent Respiratory effort is even, unlabored. GI: Reports nausea, Patient currently denies abdominal pain, vomiting. Derm: Skin is healthy with good turgor, Skin is pink, warm \\T\\ dry. Musculoskeletal: Reports pain in right knee. 10:44 Reassessment: PT RETURNED FROM RAD. bp 11:45 Reassessment: Patient appears in no apparent distress at this time. Patient and/or ph family updated on plan of care and expected duration. Pain level reassessed. Patient is alert, oriented x 3, equal unlabored respirations, skin warm/dry/pink. Vital Signs: 08:38 BP 177 / 71; Pulse 86; Resp 16 S; Temp 98.2(TE); Pulse Ox 98% on R/A; aa5 09:27 BP 151 / 63; Pulse 75; Resp 16; Temp 98.3; Pulse Ox 97% ; sg5 10:44 BP 175 / 73; Pulse 80; Resp 16; Pulse Ox 99% ; bp 11:45 BP 160 / 66; Pulse 76; Resp 18; Pulse Ox 97% ; ph ED Course: 08:38 Patient arrived in ED. aa5 08:38 Ramin Easton MD is Attending Physician. rn 08:38 Arm band placed on Patient placed in an exam room, on a stretcher. aa5 08:45 Triage completed. aa5 08:49 Amy Madden, RN is Primary Nurse. ph 09:06 Patient has correct armband on for positive identification. Bed in low position. Call ph light in reach. Side rails up X 1. Pulse ox on. NIBP on. Door closed. Noise minimized. Warm blanket given. 09:07 Initial lab(s) drawn, by nc, sent to lab. Missed attempt(s): 22 gauge in right ph antecubital area. Bleeding controlled, band aid applied, catheter tip intact. 09:26 Inserted saline lock: 22 gauge in right hand, using aseptic technique. sg5 11:48 Kenji Wilkes MD is Referral Physician. rn 12:03 No provider procedures requiring assistance completed. IV discontinued, intact, ph bleeding controlled, No redness/swelling at site. Pressure dressing applied. Administered Medications: 08:55 Drug: Meclizine 50 mg Route: PO; ph 11:54 Follow up: Response: No adverse reaction bp 10:05 Drug: NS 0.9% 500 ml Route: IV; Rate: bolus; Site: right hand; sg5 11:26 Follow up: Response: No adverse reaction; IV Intake: 500ml sg5 11:54 Follow up: Response: No adverse reaction; IV Status: Completed infusion; IV Intake: bp 500ml Medication: 09:07 VIS not applicable for this client. ph Intake: 11:26 IV: 500ml; Total: 500ml. sg5 11:54 IV: 500ml; Total: 1000ml. bp Outcome: 11:48 Discharge ordered by . rn 12:04 Discharged to home ambulatory. ph 12:04 Condition: good 12:04 Discharge instructions given to patient, Instructed on discharge instructions, follow up and referral plans. medication usage, Demonstrated understanding of instructions, follow-up care, medications, Prescriptions given X 1. 12:06 Patient left the ED. ph Signatures: Ramin Easton MD MD rn Calderon, Audri, RN RN 5 Amy Madden RN RN Vincent Mcintyre RN RN Keara Pozo RN RN 5
--- NOTE | 2022-07-17 11:49 | EDPHYS ---
Physician Documentation [facility] Name: Yadira Land Age: 72 yrs Sex: Female : 1950 Arrival Date: 07/17/2022 Time: 08:38 Bed 8 Private MD: ED Physician Ramin Easton HPI: 07/17 08:51 This 72 yrs old Female presents to ER via Wheelchair with complaints of rn Dizziness. 08:51 The patient presents with dizziness, sense of spinning, vertigo. Onset: The rn symptoms/episode began/occurred yesterday. Modifying factors: The symptoms are alleviated by nothing, the symptoms are aggravated by movement of head, standing up, changing position. Associated signs and symptoms: Pertinent negatives: abdominal pain, agitation, blurred vision, chest pain, combativeness, confusion, focal weakness, headache, near-syncope, seizure, shortness of breath, syncope, tingling, vomiting. Severity of symptoms: At their worst the symptoms were mild in the emergency department the symptoms are unchanged. The patient has experienced similar episodes in the past. The patient has not recently seen a physician. Pt reports dizziness that began yesterday, feels like everything is spinning, mild, no other focal neuro complaints. 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 No head injury. No vision changes. No chest or abd pain. No vomiting/diarrhea. No trauma. NO medication changes. Symptoms are intermittent. . Historical: - Allergies: 08:46 No Known Allergies; aa5 - PMHx: 08:46 Diabetes - NIDDM; Hypertension; aa5 - Immunization history:: Adult Immunizations unknown. - Family history:: not pertinent. - Social history:: Smoking status: Patient denies any tobacco usage or history of. - Hospitalizations: : No recent hospitalization is reported. ROS: 08:51 Constitutional: Negative for fever, chills, and weight loss, Eyes: Negative for injury, rn pain, redness, and discharge, Neck: Negative for injury, pain, and swelling, Cardiovascular: Negative for chest pain, palpitations, and edema, Respiratory: Negative for shortness of breath, cough, wheezing, and pleuritic chest pain, Abdomen/GI: Negative for abdominal pain, nausea, vomiting, diarrhea, and constipation, Back: Negative for injury and pain, MS/Extremity: Negative for injury and deformity, Skin: Negative for injury, rash, and discoloration, Neuro: Negative for headache, weakness, numbness, tingling, and seizure. Exam: 08:51 Constitutional: This is a well developed, well nourished patient who is awake, alert, rn and in no acute distress. Head/Face: Normocephalic, atraumatic. Eyes: Periorbital areas with no swelling, redness, or edema. Neck: Trachea midline, no masses palpated, and no cervical lymphadenopathy. Supple, full range of motion without nuchal rigidity, or vertebral point tenderness. No Meningismus. Cardiovascular: Regular rate and rhythm. No pulse deficits. Respiratory: No increased work of breathing, no retractions or nasal flaring. Abdomen/GI: Soft, non-tender Skin: Warm, dry with normal turgor. Normal color with no rashes, no lesions, and no evidence of cellulitis. MS/ Extremity: Pulses equal, no cyanosis. Neurovascular intact. Full, normal range of motion. Equal circumference. Neuro: Awake and alert, GCS 15, oriented to person, place, time, and situation. Cranial nerves II-XII grossly intact. Motor strength 5/5 in all extremities. Sensory grossly intact. NO nystagmus. Able to situp on own power without truncal ataxia. 10:10 ECG was reviewed by the Attending Physician. rn Vital Signs: 08:38 BP 177 / 71; Pulse 86; Resp 16 S; Temp 98.2(TE); Pulse Ox 98% on R/A; aa5 09:27 BP 151 / 63; Pulse 75; Resp 16; Temp 98.3; Pulse Ox 97% ; sg5 10:44 BP 175 / 73; Pulse 80; Resp 16; Pulse Ox 99% ; bp 11:45 BP 160 / 66; Pulse 76; Resp 18; Pulse Ox 97% ; ph MDM: 08:38 Patient medically screened. rn 11:47 Differential diagnosis: CVA, generalized weakness, hypovolemia, idiopathic dizziness, rn TIA, vertigo. Differential diagnosis: cardiac arrhythmia. Data reviewed: vital signs, nurses notes. Data reviewed: lab test result(s), EKG, radiologic studies, CT scan, MRI, and as a result, I will discharge patient. Consideration of Admission/Observation Escalation of care including admission/observation considered. Was able to rule out CVA in ER so ultimately not admitted. I considered the following discharge prescriptions or medication management in the emergency department I discussed and recommended Over The Counter medications, Medications were administered in the Emergency Department. See MAR. Care significantly affected by the following chronic conditions: Diabetes, Hypertension. Counseling: I had a detailed discussion with the patient and/or guardian regarding: the historical points, exam findings, and any diagnostic results supporting the discharge/admit diagnosis, lab results, radiology results, the need for outpatient follow up, to return to the emergency department if symptoms worsen or persist or if there are any questions or concerns that arise at home. Response to treatment: the patient's symptoms have mildly improved after treatment, and as a result, I will discharge patient. Special discussion: I discussed with the patient/guardian in detail that at this point there is no indication for admission to the hospital. It is understood, however, that if the symptoms persist or worsen the patient needs to return immediately for re-evaluation. 07/17 08:49 Order name: Basic Metabolic Panel rn 07/17 08:49 Order name: CBC with Diff rn 07/17 08:49 Order name: Magnesium rn 07/17 08:49 Order name: Protime (+inr) rn 07/17 08:49 Order name: Ptt, Activated rn 07/17 08:49 Order name: Troponin High Sensitivity rn 07/17 08:49 Order name: CT Head Brain wo Cont rn 07/17 09:23 Order name: Protime (+INR); Complete Time: 09:47 EDMS 07/17 09:23 Order name: PTT, Activated Partial Thromb; Complete Time: 09:47 EDMS 07/17 09:27 Order name: CBC with Automated Diff; Complete Time: 09:47 EDMS 07/17 09:41 Order name: Basic Metabolic Panel; Complete Time: 09:47 EDMS 07/17 09:41 Order name: Troponin High Sensitivity; Complete Time: 09:47 EDMS 07/17 09:41 Order name: Magnesium; Complete Time: 09:47 EDMS 07/17 10:19 Order name: Urine Dipstick-Ancillary; Complete Time: 10:54 EDMS 07/17 08:49 Order name: EKG; Complete Time: 08:50 rn 07/17 08:49 Order name: Cardiac monitoring; Complete Time: 09:07 rn 07/17 08:49 Order name: EKG - Nurse/Tech; Complete Time: 09:31 rn 07/17 08:49 Order name: Labs collected and sent; Complete Time: 09:07 rn 07/17 08:49 Order name: O2 Per Protocol; Complete Time: 08:50 rn 07/17 08:49 Order name: O2 Sat Monitoring; Complete Time: 08:50 rn 07/17 08:49 Order name: Urine Dipstick-Ancillary (obtain specimen); Complete Time: 10:44 rn 07/17 08:49 Order name: Brain Wo Cont MRI rn 07/17 08:49 Order name: Glucose Level; Complete Time: 09:07 rn 07/17 09:49 Order name: CT; Complete Time: 10:08 EDMS 07/17 10:57 Order name: MRI; Complete Time: 11:47 EDMS EC:10 Rate is 73 beats/min. Rhythm is regular. QRS [place] is Normal. MT interval is normal. QRS rn interval is normal. QT interval is normal. No Q waves. T waves are Normal. No ST changes noted. Clinical impression: Normal ECG. Interpreted by me. Reviewed by me. Administered Medications: 08:55 Drug: Meclizine 50 mg Route: PO; ph 11:54 Follow up: Response: No adverse reaction bp 10:05 Drug: NS 0.9% 500 ml Route: IV; Rate: bolus; Site: right hand; sg5 11:26 Follow up: Response: No adverse reaction; IV Intake: 500ml sg5 11:54 Follow up: Response: No adverse reaction; IV Status: Completed infusion; IV Intake: bp 500ml Disposition Summary: 07/17/22 11:48 Discharge Ordered Location: Home rn Problem: new rn Symptoms: have improved rn Condition: Stable rn Diagnosis - Dizziness and giddiness rn - Vertigo rn Followup: rn - With: Kenji Wilkes MD - When: As needed - Reason: Recheck today's complaints, Re-evaluation by your physician Discharge Instructions: - Discharge Summary Sheet rn - Dizziness rn - Vertigo rn Forms: - Medication Reconciliation Form rn - Thank You Letter rn - Antibiotic compensation intern - Prescription Opioid Use rn Prescriptions: - Meclizine 25 mg Oral Tablet - take 1 tablet by ORAL route every 8 hours As needed; 30 tablet; Refills: 0, rn Product Selection Permitted Signatures: Dispatcher [employer] EDRamin Augustine MD MD rn Calderon, Audri, RN RN aa5 Amy Madden RN RN ph Keara Pozo, RN RN sg5 Vincent Mcintyre RN bp Corrections: (The following items were deleted from the chart) 08:54 08:51 Pt reports dizziness that began yesterday, feels like everything is spinning, jinny vaughn, no other focal neuro complaints. 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 No head injury. No vision changes. No chest or abd pain. No vomiting/diarrhea. No trauma. NO medication changes.. rn
[2022-07-17 12:22] VITALS: TEMP 98.3
[2022-07-17 12:33] VITALS: BP 160/66; O2SAT 97
--- NOTE | 2022-07-18 15:24 | EKG ---
Test Date: 2022-07-17 Test Time: 09:30:40 Ems Educator: CRISTHIAN MEASUREMENT RESULTS: Intervals: Rate: 73 MA: 136 QRSD: 72 QT: 396 QTc: 436 [place]: P: 57 MA: 136 QRS: 24 T: 80 INTERPRETIVE STATEMENTS: Normal sinus rhythm Normal ECG Compared to ECG 05/10/2022 18:45:00 T-wave abnormality no longer present Prolonged QT interval no longer present Electronically Signed On 07-18-22 15:20:32 CERTIFIED PROFESSIONAL CONTROLLER by Umair Ramírez
== END 2022-07-17 12:06 | disposition home or self-care (01) ==
LOC: ER 08:35
DX: R42 Dizziness and giddiness (principal); E11.9 Type 2 diabetes mellitus without complications; I10 Essential (primary) hypertension
CPT/HCPCS: 96361; 93005; 85025; 80048; 36415; 83735; 85610; 85730; 81003; 84484; 70450; 70551; 96360; 99284; J8597; J7040

== ENCOUNTER 2022-10-10 05:50 | Observation (INO) | payer MEDICARE, OTHER ==
[2022-10-04 15:46] LABS: Absolute Lymphocytes (CBC) 2.9 K/uL (0.7-4.9); Hematocrit 38.1 % (36.0-45.0); Lymphocytes % 36.7 % (15.3-44.8); MCV 86.1 fL (80-100); MPV 10.2 fL (7.6-11.3); RBC Red Blood Cell Count 4.43 M/uL (3.86-4.86)
[2022-10-04 15:59] LABS: Potassium 4.5 mEq/L (3.5-5.1)
--- NOTE | 2022-10-04 16:04 | RAD REPORT ---
EXAM DESCRIPTION: RAD - Chest Pa And Lat (2 Views) - 10/04/2022 3:33 pm CLINICAL HISTORY: pre op pending knee arthroplasty, diabetes COMPARISON: Chest Single View dated 05/10/2022; Chest Single View dated 04/11/2022; Chest Single Vie w dated 05/27/2021; Chest Single View dated 05/22/2021 FINDINGS: Lines: None. Lungs: No evidence of edema or pneumonia. Pleural: No significant pleural effusions or pneumothorax. Cardiac: The heart size is within normal limits. Mediastinum: Within normal limits. Bones: No acute fractures. Other: None IMPRESSION: No acute cardiopulmonary disease.
[2022-10-04 16:12] LABS: Protime INR 0.95
[2022-10-10] MEDS ORDERED: NA CHLORIDE 0.9% 1,000 ML ONE ×2 (06:25→09:13)
[2022-10-10] MEDS ORDERED: EPHEDRINE SULF 50 MG/ML VIAL ONE (06:45)
[2022-10-10] MEDS ORDERED: FENTANYL CITR 100 MCG/2 ML ONE (06:45)
[2022-10-10] MEDS ORDERED: dexAMETHasone 10 MG/ML VIAL ONE ×2 (06:45→08:41)
[2022-10-10] MEDS ORDERED: MIDAZOLAM HCL 2 MG/2 ML INJ ONE (06:46)
[2022-10-10] MEDS ORDERED: BUPIVACAINE 0.25% PF 30 ML VIAL ONE (06:46)
[2022-10-10] MEDS ORDERED: EPINEPHRINE/PF 1 MG/ML AMP ONE (06:48)
[2022-10-10] MEDS ORDERED: ACETAMINOPHEN 500 MG TAB ONE (07:01)
[2022-10-10] MEDS ORDERED: CELECOXIB 100 MG CAPSULE ONE (07:01)
[2022-10-10] MEDS ORDERED: GABAPENTIN 100 MG CAP ONE (07:03)
[2022-10-10] MEDS ORDERED: Oxycodone HCl/Acetaminophen 1 TAB TAB ONE (07:04)
[2022-10-10] MEDS ORDERED: LIDOCAINE 2% MPF 5 ML VIAL ONE ×2 (07:30→08:12)
[2022-10-10] MEDS ORDERED: TRANEXAMIC ACID 1,000 MG/10 ML VIAL IV ONE (07:40)
[2022-10-10] MEDS ORDERED: propofoL 200 MG/20 ML VIAL IV ONE (08:12)
[2022-10-10] MEDS ORDERED: KETAMINE HCL IN 0.9 % NACL 50 MG/5 ML SYRINGE IV ONE (08:12)
[2022-10-10] MEDS ORDERED: CEFAZOLIN SODIUM 1 GM/VIAL ONE (08:13)
[2022-10-10] MEDS ORDERED: ONDANSETRON 4 MG/2 ML VIAL ONE (08:41)
--- NOTE | 2022-10-10 11:03 | P.BOP ---
Preoperative diagnosis: right knee osteoarthritis Postoperative diagnosis: same Primary procedure: right total knee arthroplasty Mixing Machine Attendant: NONE,NONE Estimated blood loss: 40 cc Specimen: right knee bone remnants Findings: see dictation Anesthesia: General Complications: None Implants: Biomet Lainey Persona 7 CR femur, D tibia, 10 CR poly, 26 patella Fluids & blood products: per anesthesia record; TT: 74 mins @ 325 mmHg Transferred to: Recovery Room Condition: Good
[2022-10-10] MEDS ORDERED: ONDANSETRON 4 MG/2 ML VIAL IV PRN (11:04)
[2022-10-10] MEDS ORDERED: DOCUSATE NA 100 MG CAP PO PRN (11:04)
[2022-10-10] MEDS ORDERED: KETOROLAC 30 MG/ML INJ ONE (11:08)
[2022-10-10] MEDS ORDERED: TRAMADOL HCL 50 MG TAB PO PRN (11:08)
[2022-10-10] MEDS ORDERED: ACETAMINOPHEN 500 MG TAB PO PRN (11:08)
[2022-10-10] MEDS: HYDROMORPHONE HCL 1 MG/ML INJ ONE ×4 (11:10→11:53)
[2022-10-10] MEDS ORDERED: HOME MED 1 EA UNK (Semaglutide [Ozempic] 0.25 MG/0.2 ML Pen.Injctr) SQ SCH (11:15)
--- NOTE | 2022-10-10 11:35 | RAD REPORT ---
EXAM DESCRIPTION: RAD - Knee Right 2 View - 10/10/2022 11:25 am CLINICAL HISTORY: Post Op COMPARISON: Knee Right 3 View dated 03/19/2021; Knee Right 3 View dated 11/23/2020 FINDINGS: Right total knee arthroplasty has been performed. Hardware is expected positioning alignme nt. Skin marisa are noted anteriorly. A small amount of air is present in the joint. Mild popliteal atherosclerosis.
[2022-10-10 13:09] VITALS: BMI 26.5
[2022-10-10] MEDS: GABAPENTIN 400 MG CAP PO SCH ×2 (15:22→20:35)
[2022-10-10] MEDS: CEFAZOLIN 1 GM in NA CHLORIDE 0.9% 50 ML IVPB SCH (16:33)
[2022-10-10] MEDS: HYDROCODONE/APAP 7.5/325 MG TAB PO PRN (21:15)
[2022-10-10] MEDS ORDERED: D50W 25 GM/50 ML SYRINGE IV PRN (21:36)
[2022-10-10] MEDS ORDERED: GLUCAGON 1 MG/VIAL IM PRN (21:36)
[2022-10-10] MEDS ORDERED: D10W 125 ML IV PRN (21:40)
--- NOTE | 2022-10-10 21:43 | P.OP ---
Preoperative diagnosis: right knee osteoarthritis Postoperative diagnosis: right knee osteoarthritis Primary procedure: right total knee arthroplasty Anesthesia: general Estimated blood loss: 40 cc Specimen: right knee bone remnants Findings: see dictation Operative Technique: Indication For Procedure: Yadira is a 72 year-old female presenting to my clinic with signs, symptoms and x-ray findings consistent with severe right knee osteoarthritis. I discussed with the patient at length risks and benefits associated with operative and nonoperative treatment. She had failed conserv ative treatment measures and had significant difficulties with ADLs secondary to her pain. We discussed operative treatment and elected to proceed with right total knee arthroplasty. She expressed understanding and elected to proceed with operative treatment. Description Of Procedure: After informed consent was obtained, the patient was identified in the preoperative holding area. The right lower extremity was marked. The patient was then taken to the PACU where she underwent a right lower extremity adductor canal block performed by Anesthesia. She was then taken to the operating room, transferred to the operating table in supine fashion, and placed under general anesthesia. The right lower extremity was then prepped and draped in usual sterile fashion. A time-out was initiated. The correct patient and procedure were confirmed and identified. The patient did receive her preoperative prophylactic antibiotics. The right lower extremity was then exsanguinated and tourniquet was inflated to 300 mmHg. Approximately 15 cm longitudinal incision was made centered over the anterior aspect of the right knee. Dissection was then taken to the extensor mechanism and a medial parapatellar arthrotomy was performed. The patella was everted and dislocated laterally and the knee was flexed in the fat pad. Medial and lateral meniscus and ACL were all excised exposing the distal femur. Excess hypertrophic synovium was also excised within the suprapatellar pouch. The patient had a CT of her right knee preoperatively for surgical planning and creation of cutting blocks. The cutting block was then placed over the distal femur and pins were then placed. The distal femoral cutting block was then placed over the pins. An gaudencio wing was then used to ensure proper depth cut an d the distal femur was then cut. The chamfer cutting guide was then placed over the distal end of the femur. Anterior, posterior cuts as well as anterior and posterior chamfer cuts were then made again confirming proper depth of the cut using an Gaudencio wing. Excess bone remnants were then sent to pathology for further evaluation. Next, attention was taken to the proximal tibia. A tibial jig and tibial cutting block was then placed on proximal aspect of the right tibia and locked into position. Pins were then placed and alignment guide was then used to confirm proper alignment of the cut and then coronal and sagittal planes. Once this was confirmed, the cutting jig was placed over the pins and the proximal tibia was cut. Sizing trays were then selected and size 10 mm spacer was used and there was good overall balance in flexion and extension. Next, the trial implants were then placed using the size 7 standard CR femur and a size D tibia and an 10 mm CR poly. There was overall good range of motion and good stability. The trial implants were then removed. The wound was then irrigated thoroughly with normal saline and the knee was then injected with 30 cc of 0.5% Marcaine both in the posterior capsule and medial and lateral gutters as well as quadriceps tendon and periosteum. The tibia was then punched. The femur was drilled. The cement was then prepared on the back table. Cement was then placed first on the tibial surface followed by size D tibia. Excess cement was removed with Erin elevators. Size 7 standard CR femur was then placed on the distal femur after cement was placed on the distal femur. Excess cement was then removed and a size 10 mm CR trial poly was then placed. The knee was held in extension as the cement hardened. Undersurface of the patella was prepared debriding osteophytes using rongeurs as well as osteophytes.. Cement was placed on the undersurface of the patella after it was cut and a size 26 patella was placed. Once the cement was hardened, the knee was ranged, there was good overall stability both in flexion, extension and as well as stability with varus and valgus stresses. Trial poly was then removed and a size 10 mm CR poly was then placed and locked into position. The knee was then ranged again. There was good overall range of motion both for flexion and extension with good stability. The wound was then irrigated again thoroughly with normal saline using pulse lavage. Tourniquet was let down. Hemostasis was achieved using Bovie electrocautery. Extensor mechanism was then approximated using a #1 Vicryl both in interrupted and running fashion. The fascia was then approximated using 0 Vicryl. Subcutaneous tissue was approximated with a 2-0 Vicryl. Skin was approximated using marisa. Sterile dressings were applied. The patient was awakened and transferred back in stable condition Complications: None Implants: Biomet Lainey Persona, 7 CR femur, D tibia, 26 patella, 10 CR poly Fluids & blood products: per anesthesia record; TT: 74 mins @ 325 mmHg Transferred to: Recovery Room Condition: Good
[2022-10-10] MEDS: INSULIN -REGULAR HUMAN 50 UNIT/0.5 ML ML SQ SCH (22:14)
[2022-10-11] MEDS: CEFAZOLIN 1 GM in NA CHLORIDE 0.9% 50 ML IVPB SCH ×2 (00:48→07:40)
[2022-10-11 01:23] VITALS: O2SAT 97
[2022-10-11] MEDS: HYDROCODONE/APAP 7.5/325 MG TAB PO PRN ×3 (01:52→12:29)
[2022-10-11] MEDS: INSULIN -REGULAR HUMAN 50 UNIT/0.5 ML ML SQ SCH ×4 (01:53→13:39)
[2022-10-11 03:16] LABS: Hematocrit 33.8 % (36.0-45.0)
[2022-10-11] MEDS ORDERED: ENOXAPARIN 30 MG/0.3 ML SQ SCH (06:00)
[2022-10-11] MEDS: GABAPENTIN 400 MG CAP PO SCH ×2 (07:41→12:29)
[2022-10-11 09:00] VITALS: BP 135/66; TEMP 97.3
[2022-10-11] MEDS ORDERED: LOSARTAN POTASSIUM 50 MG TABLET PO SCH (09:00)
[2022-10-11] MEDS ORDERED: HOME MED 1 EA UNK (Empagliflozin [Jardiance] 10 MG Tablet) PO SCH (09:00)
[2022-10-11] MEDS ORDERED: CELECOXIB 100 MG CAPSULE PO SCH (09:00)
--- NOTE | 2022-10-11 13:26 | P.DS ---
Admission Date: 10/10/22 Discharge Date: 10/11/22 Disposition: DC HOME/HOME HEALTH CARE Discharge Condition: GOOD Reason for Admission: s/p R TKA Consultations: none Procedures: right total knee arthroplasty on 10/10/2022 Brief History of Present Illness: Marisol is a 72-year-old female with history of diabetes that underwent right total knee arthroplasty on October 10, 2022. Hospital Course: Patient underwent right total knee arthroplasty on Monday, October 10, 2022 without complication. She was admitted to floor in stable condition. Her vital signs remained stable postoperatively. She did have some hyperglycemia postoperatively. The patient did not take her morning diabetes medication. She was started on moderate dose sliding scale. Her blood sugar improved. She was discharged on October 11, 2022 in stable condition. She was instructed to follow-up with her primary care provider to keep close follow-up on her blood pressure and blood sugar. She will follow-up in 2 weeks for staple removal. She will continue with DVT prophylaxis with Xarelto starting tomorrow. Vital Signs/Physical Exam: Temp Pulse Resp BP Pulse Ox 97.3 F 79 94 H 135/66 94 10/11/22 12:00 10/11/22 12:00 10/11/22 12:00 10/11/22 12:00 10/11/22 12:00 Laboratory Data at Discharge: WBC 7.80 thou/uL (4.3-10.9) 10/04/22 15:15 Hgb 10.9 g/dL (12.0-15.0) L 10/11/22 03:00 Hct 33.8 % (36.0-45.0) L 10/11/22 03:00 Plt Count 191 thou/uL (152-406) 10/04/22 15:15 PT 10.4 SECONDS (9.5-12.5) 10/04/22 15:15 INR 0.95 10/04/22 15:15 APTT 26.0 SECONDS (24.3-36.9) 10/04/22 15:15 Sodium 136 mEq/L (136-145) 10/04/22 15:15 Potassium 4.5 mEq/L (3.5-5.1) 10/04/22 15:15 BUN 27 mg/dL (7-18) H 05/11/23 15:15 Creatinine 1.05 mg/dL (0.55-1.02) H 10/04/22 15:15 Glucose 110 mg/dL (74-106) H 10/04/22 15:15 Home Medications: Gabapentin 1 tab PO TID 02/16/22 Semaglutide [Ozempic] 0.25 mg SQ Q7D 02/16/22 Acetaminophen [Tylenol Extra Strength] 1 - 2 tab PO PRN PRN 10/04/22 Alendronate Sodium 70 mg PO Q7D 10/04/22 Empagliflozin [Jardiance] 10 mg PO DAILY 10/04/22 Hydrocodone 7.5/APAP 325 [[place] 7.5/325 mg*] 1 tab PO Q4H PRN tab 10/11/22 Physician Discharge Instructions: Keep dressing clean dry and intact. Begin Xarelto tomorrow, October 12, 2022, with breakfast and take once daily. Use bilateral thigh-high SHAHEED hose for 2 weeks to aid with swelling. Follow-up with Dr. Chamorro in 2 weeks for staple removal. Diet: ADA Activity: Weight bearing as tolerated Followup: Cirilo Keith MD [Primary Care Provider] - Camden Chamorro MD [ACTIVE - CAN ADMIT] - 1-2 Weeks
[2022-10-15] MEDS ORDERED: ALENDRONATE 70 MG TAB PO SCH (06:30)
== END 2022-10-11 15:47 | disposition home health service (06) ==
LOC: OR 05:50 → 2ND 12:24
PROVIDERS: ADMIT Orthopaedic Surgery Sports Medicine; ATTEND Orthopaedic Surgery Sports Medicine
PROC: 0SRC069 Replacement of Right Knee Joint with Oxidized Zirconium on Polyethylene Synthetic Substitute, Cemented, Open Approach (ICD-10-PCS; principal; 2022-10-10 08:00)
DX: M17.11 Unilateral primary osteoarthritis, right knee (principal); E11.65 Type 2 diabetes mellitus with hyperglycemia
CPT/HCPCS: 85025; 80048; 36415 ×3; 85610; 82947 ×9; 88305; 88311; 85730; 85018 ×2; 85014 ×2; 71046; 73560; 97110 ×2; 97116 ×2; 97139; 97161; 94010 ×2; 27447; J1815 ×4; J2704; J0171; J2001 ×2; J1650; J2250; J3010; J1100 ×2; J1170 ×2; J2405; J7030 ×2; J0690 ×4; 88304; G0378

== ENCOUNTER 2023-11-05 17:52 | Emergency (ER) | payer MEDICARE, OTHER ==
--- NOTE | 2023-11-05 20:32 | RAD REPORT ---
EXAM DESCRIPTION: RAD - Knee Left 3 View - 11/05/2023 7:09 pm CLINICAL HISTORY: PAIN COMPARISON: Knee Left 3 View dated 02/19/2018; Knee Left 2 View dated 04/24/2017; Knee Right 2 View d ated 10/10/2022 TECHNIQUE: Left knee, 3 views. FINDINGS: Left total knee arthroplasty hardware in unchanged alignment. Stable radiodensities, cresc entic somewhat linear, and ovoid, posterior to the knee joint space. Vascular calcifications. No frac ture, dislocation or periosteal reaction.No joint effusion seen. No soft tissue abnormality. Clinical concerns for internal derangement or occult bony injury could be further assessed with MR im aging. IMPRESSION: No acute osseous abnormality. Stable alignment of left total knee arthroplasty hardware.
[2023-11-05] MEDS ORDERED: IBUPROFEN 400 MG TAB ONE (21:33)
[2023-11-05] MEDS ORDERED: methocarbamoL 750 MG TAB ONE (21:33)
[2023-11-05] MEDS ORDERED: HYDROCODONE/APAP 5/325 MG TAB ONE (21:34)
--- NOTE | 2023-11-05 21:52 | ER ---
Nurse's Notes [facility] Name: Yadira Land Age: 73 yrs Sex: Female : 1950 Arrival Date: 11/05/2023 Time: 17:52 Bed 10 Private MD: Diagnosis: Pain in left knee;Fall on same level, unspecified;Acute left knee contusion , Acute left knee pain Presentation: 11/04 18:08 Chief complaint: Patient states: she fell onto her left knee at approx 1430 today. ap3 patient states the fall was onto concrete, she denies hitting her head. Coronavirus screen: At this time, the client does not indicate any symptoms associated with coronavirus-19. Ebola Screen: No symptoms or risks identified at this time. Initial Sepsis Screen: Does the patient meet any 2 criteria? No. Patient's initial sepsis screen is negative. Does the patient have a suspected source of infection? No. Patient's initial sepsis screen is negative. Risk Assessment: Do you want to hurt yourself or someone else? Patient reports no desire to harm self or others. Onset of symptoms was November 05, 2023 at 14:30. 18:08 Method Of Arrival: Ambulatory ap3 18:08 Acuity: KARSTEN 4 ap3 Triage Assessment: 18:10 General: Appears uncomfortable, Behavior is calm, cooperative, appropriate for age. ap3 Pain: Complains of pain in left leg Pain currently is 7 out of 10 on a pain scale. Pain began suddenly. Neuro: Level of Consciousness is awake, alert, obeys commands, Oriented to person, place, time, situation, Appropriate for age Speech is normal. Cardiovascular: Patient's skin is warm and dry. Respiratory: Airway is patent Respiratory effort is even, unlabored, Respiratory pattern is regular, symmetrical. Musculoskeletal: Reports pain in left leg. Injury Description: fall from standing position. Historical: - Allergies: 18:09 No Known Allergies; ap3 - Home Meds: 18:09 Jardiance oral [Active]; Ozempic subcutaneous [Active]; ap3 - PMHx: 18:09 Diabetes - NIDDM; Hypertension; ap3 - Immunization history:: Client reports receiving the 2nd dose of the Covid vaccine, Flu vaccine is up to date. - Infectious Disease History:: Denies. - Social history:: Smoking status: Patient denies any tobacco usage or history of. Screenin:11 Abuse screen: Denies threats or abuse. Nutritional screening: No deficits noted. ap3 Tuberculosis screening: No symptoms or risk factors identified. 22:05 [facility] ED Fall Risk Assessment (Adult) History of falling in the last 3 months, vc1 including since admission Yes- fall prone (multiple falls) (3 pts) Confusion or Disorientation No (0 pts) Intoxicated or Sedated No (0 pts) Impaired Gait No (0 pts) Mobility Assist Device Used No (0 pt) Altered Elimination No (0 pt) Score/Fall Risk Level 0 - 2 = Low Risk Oriented to surroundings, Maintained a safe environment, Educated pt \T\ family on fall prevention, incl call for assistance when getting out of bed. Assessment: 22:03 Reassessment: No changes from previously documented assessment. Patient and/or family vc1 updated on plan of care and expected duration. Pain level reassessed. Patient is alert, oriented x 3, equal unlabored respirations, skin warm/dry/pink. Vital Signs: 18:08 BP 133 / 57; Pulse 71; Resp 17; Temp 98.2; Pulse Ox 96% ; Weight 61.23 kg; Height 5 ft. ap3 4 in. ; Pain 7/10; 22:03 BP 128 / 56; Pulse 70; Resp 17; Pulse Ox 97% ; vc1 18:08 Body Mass Index 23.17 (61.23 kg, 162.56 cm) ap3 18:08 Pain Scale: Adult ap3 ED Course: 17:55 Patient arrived in ED. im 17:56 Mingo Coon DO is Attending Physician. ms3 18:09 Triage completed. ap3 18:11 Arm band placed on left wrist. ap3 19:10 Knee Left 3 View In Process Unspecified. EDMS 20:07 Attending Physician role handed off by Mingo Coon DO sp4 20:07 Jann Vick MD is Attending Physician. sp4 21:51 Camden Chamorro MD is Referral Physician. sp4 22:03 No provider procedures requiring assistance completed. Patient did not have IV access vc1 during this emergency room visit. 22:04 Provided Education on: ortho brace. vc1 Administered Medications: 21:52 Not Given (Patient Refused): hydrocodone-acetaminophen5 mg-325 mg 2 tabs PO once vc1 21:52 Not Given (Patient Refused): [id number] mg PO once vc1 :52 Not Given (Patient Refused): [id number] mg PO once vc1 Medication: 22:04 VIS not applicable for this client. vc1 Outcome: : Discharge ordered by . sp4 22:03 Discharged to home via wheelchair, vc1 22:03 Condition: good 22:03 Discharge instructions given to patient, Instructed on discharge instructions, follow up and referral plans. medication usage, ortho Demonstrated understanding of instructions, follow-up care, medications, Prescriptions given X 1, 22:06 Patient left the ED. vc1 Signatures: Dispatcher [employer] EDMS Nazia Johnston RN RN ap3 Mingo Coon DO DO ms3 Joy Servin RN RN vc1 Jann Vick MD MD sp4 Dina Quintana im
--- NOTE | 2023-11-05 21:52 | EDPHYS ---
Physician Documentation [facility] Name: Yadira Land Age: 73 yrs Sex: Female : 1950 Arrival Date: 11/05/2023 Time: 17:52 Bed 10 Private MD: ED Physician Jann Vick HPI: 11/04 19:35 This 73 yrs old Female presents to ER via Ambulatory with complaints of Knee ms3 Injury, Fall Injury. 19:35 73-year-old female with past medical history of diabetes, hypertension presents to the [facility] emergency department after tripping over concrete at 2:30 PM. Patient states she is having left knee pain she rates a 7/10. Patient denies loss of consciousness or hitting her head.. Historical: - Allergies: 18:09 No Known Allergies; ap3 - Home Meds: 18:09 Jardiance oral [Active]; Ozempic subcutaneous [Active]; ap3 - PMHx: 18:09 Diabetes - NIDDM; Hypertension; ap3 - Immunization history:: Client reports receiving the 2nd dose of the Covid vaccine, Flu vaccine is up to date. - Infectious Disease History:: Denies. - Social history:: Smoking status: Patient denies any tobacco usage or history of. ROS: 19:35 Constitutional: Negative for fever, and chills. Neck: Negative for injury, pain, and ms3 swelling, Cardiovascular: Negative for chest pain, and palpitations. Respiratory: Negative for shortness of breath, cough, wheezing, and pleuritic chest pain, Abdomen/GI: Negative for abdominal pain, nausea, vomiting, diarrhea, and constipation, 19:35 MS/extremity: Positive for Left knee pain, Exam: 19:35 Constitutional: This is a well developed, well nourished patient who is awake, alert, ms3 and in no acute distress. Cardiovascular: Regular rate and rhythm with a normal S1 and S2. No gallops, murmurs, or rubs. Normal PMI, no JVD. No pulse deficits. Respiratory: Lungs have equal breath sounds bilaterally, clear to auscultation and percussion. No rales, rhonchi or wheezes noted. No increased work of breathing, no retractions or nasal flaring. 19:35 Musculoskeletal/extremity: Extremities: noted in the Left knee: pain, tenderness, Vital Signs: 18:08 BP 133 / 57; Pulse 71; Resp 17; Temp 98.2; Pulse Ox 96% ; Weight 61.23 kg; Height 5 ft. ap3 4 in. ; Pain 7/10; 22:03 BP 128 / 56; Pulse 70; Resp 17; Pulse Ox 97% ; vc1 18:08 Body Mass Index 23.17 (61.23 kg, 162.56 cm) ap3 18:08 Pain Scale: Adult ap3 MDM: 18:13 Patient medically screened. ms3 19:35 Differential diagnosis: contusion, fracture, sprain, strain. ms3 20:00 Transition of care: After a detail discussion of the patient's case, care is ms3 transferred to Jann Vick MD. 23:18 Data reviewed: vital signs, nurses notes, radiologic studies, plain films. ms3 11/04 19:10 Order name: Knee Left 3 View; Complete Time: 21:42 EDMS Administered Medications: 21:52 Not Given (Patient Refused): hydrocodone-acetaminophen5 mg-325 mg 2 tabs PO once vc1 21:52 Not Given (Patient Refused): mg PO once vc1 21:52 Not Given (Patient Refused): [id number] mg PO once vc1 Disposition Summary: 11/05/23 21:52 Discharge Ordered Notes: Location: Home sp4 Problem: new sp4 Symptoms: have improved sp4 Condition: Stable sp4 Diagnosis - Pain in left knee sp4 - Fall on same level, unspecified sp4 - Acute left knee contusion , Acute left knee pain sp4 Followup: ms3 - With: Camden Chamorro MD - When: 2 - 3 days - Reason: Recheck today's complaints Discharge Instructions: - Discharge Summary Sheet ms3 - Acute Knee Pain, Adult ms3 Forms: - Patient Portal Instructions sp4 Signatures: Dispatcher [employer] EDMS Nazia Johnston RN RN ap3 Mingo Coon DO DO ms3 Jann Vick MD MD sp4 Joy Servin RN vc1 Corrections: (The following items were deleted from the chart) 19:10 18:16 Knee Right 3 View+RAD.RAD.BRZ ordered. EDMS EDMS
[2023-11-05 22:35] VITALS: BP 128/56; TEMP 98.2; O2SAT 97
== END 2023-11-05 22:06 | disposition home or self-care (01) ==
LOC: ER 17:52
DX: S80.02XA Contusion of left knee, initial encounter (principal); W18.30XA Fall on same level, unspecified, initial encounter
CPT/HCPCS: 99283

== ENCOUNTER 2024-02-05 13:55 | Inpatient (IN) | payer MEDICARE, OTHER ==
[2024-02-05] MEDS ORDERED: FAMOTIDINE 20 MG/2 ML VIAL IV ONE (15:39)
[2024-02-05] MEDS ORDERED: ONDANSETRON 4 MG/2 ML VIAL ONE ×3 (15:39→21:36)
[2024-02-05] MEDS ORDERED: NA CHLORIDE 0.9% 1,000 ML ONE ×2 (15:39→21:37)
[2024-02-05 15:43] LABS: Absolute Basophils 0.1 K/uL (0-0.5); Absolute Lymphocytes (CBC) 0.8 K/uL (0.7-4.9); Absolute Monocytes 0.2 K/uL (0.1-1.3); Absolute Neutrophil 8.3 K/uL (1.8-8.0); Basophils % 0.6 % (0-1.3); Hematocrit 37.6 % (36.0-45.0); Hemoglobin 12.5 g/dL (12.0-15.0); Lymphocytes % 8.6 % (15.3-44.8); MCH 28.7 pg (27.0-35.0); MCHC 33.1 g/dL (32.0-36.0); MCV 86.8 fL (80-100); MPV 9.7 fL (7.6-11.3); Monocytes % 1.8 % (3.3-12.3); Platelets 193 thou/uL (152-406); RBC Red Blood Cell Count 4.33 M/uL (3.86-4.86); Red Cell Distribution Width 14.6 % (12.1-15.2)
[2024-02-05 15:58] LABS: Albumin/Globulin Ratio 1.1 (1.1-1.8); Anion Gap 13.8 mEq/L (5.0-15.0); Globulin 3.7 g/dL (2.3-3.5); Potassium 3.8 mEq/L (3.5-5.1); Protein, Total 7.7 g/dL (6.4-8.2); SARS-CoV-2 Antigen CONTROL BLUE LINE VIS/BG OK; SARS-CoV-2 Antigen Rapid Res Negative (Negative)
--- NOTE | 2024-02-05 16:41 | RAD REPORT ---
EXAM DESCRIPTION: CT - Abdomen Pelvis W Contrast - 02/05/2024 4:21 pm CLINICAL HISTORY: Abdominal pain COMPARISON: 2019 TECHNIQUE: Computed axial tomography of the abdomen pelvis was obtained. 100 cc Isovue-300 was admin istered intravenously. Oral contrast was not requested which limits evaluation of bowel and appendix All CT scans are performed using dose optimization technique as appropriate and may include automated exposure control or mA/KV adjustment according to patient size. FINDINGS: 2.4 centimeters splenic cyst. Liver, pancreas, adrenals and right kidney unremarkable. Small left renal cyst. Calcified uterine fibroids are present. No evidence of diverticulitis. Moderate amount stool within the colon Bladder is distended IMPRESSION: Moderate amount stool within the colon Bladder is distended
--- NOTE | 2024-02-05 16:42 | RAD REPORT ---
EXAM DESCRIPTION: Alec Single View02/05/2024 2:40 pm CLINICAL HISTORY: Cough COMPARISON: 2022 FINDINGS: The lungs appear clear of acute infiltrate. The heart is normal size IMPRESSION: No acute abnormalities displayed
[2024-02-05 17:22] LABS: Specific Gravity 1.022 (1.005-1.030); Sqamous Epithelial <5 /HPF (None Seen); Urine Bacteria None Seen /HPF (<20); Urine Bilirubin NEGATIVE (Negative); Urine Blood Negative (Negative); Urine Clarity Clear (Clear); Urine Color Colorless (Yellow); Urine Culture Reflex Order NOT NEEDED; Urine Glucose 4+ (Over) (Negative); Urine Ketones 1+ (Negative); Urine Microscopic Reflex YN ORDER UMIC; Urine Nitrite NEGATIVE (Negative); Urine Protein TRACE (Negative); Urine RBC <5 /HPF (None Seen); Urine Urobilinogen Normal (Normal); Urine WBC None Seen /HPF (<5); Urine pH 6.5 (5.0-7.0)
--- NOTE | 2024-02-05 18:57 | ER ---
Nurse's Notes [facility] Name: Yadira Land Age: 73 yrs Sex: Female : 1950 Arrival Date: 02/05/2024 Time: 13:55 Bed 20 Private MD: Diagnosis: Nausea with vomiting, unspecified;Abdominal pain, unspecified Presentation: 02/04 14:04 Chief complaint: Patient states: vomiting and pain to left mid back since last night. iw 14:04 Method Of Arrival: Wheelchair iw 14:04 Acuity: KARSTEN 3 iw 19:15 Coronavirus screen: Vaccine status: Client denies travel out of the [place] in the last 14 rg5 days. 19:15 Ebola Screen: Patient negative for fever greater than or equal to 101.5 degrees rg5 Fahrenheit, and additional compatible Ebola Virus Disease symptoms. Initial Sepsis Screen: Does the patient meet any 2 criteria? No. Patient's initial sepsis screen is negative. Does the patient have a suspected source of infection? No. Patient's initial sepsis screen is negative. Risk Assessment: Do you want to hurt yourself or someone else? Patient reports no desire to harm self or others. Onset of symptoms was February 05, 2024. Historical: - Allergies: 14:05 No Known Allergies; iw - Home Meds: 14:07 gabapentin 800 mg Oral tab 1 tab 3 times per day [Active]; aspirin 81 mg Oral cap 1 cap iw once daily [Active]; atorvastatin 40 mg Oral tab 1 tab once daily [Active]; celecoxib 200 mg Oral cap 1 cap once daily [Active]; citalopram 10 mg tab 1 tab once daily [Active]; montelukast 5 mg Oral chew 2 tabs once daily [Active]; chlorthalidone 25 mg Oral tab 1 tab once daily [Active]; clopidogrel 75 mg Oral tab 1 tab once daily [Active]; folic acid 1 mg Oral tab 1 tab once daily [Active]; losartan 100 mg Oral tab 1 tab once daily [Active]; - PMHx: 14:05 Diabetes - NIDDM; Hypertension; iw 14:07 RA; iw - PSHx: 14:07 Cholecystectomy; Appendectomy; knees; iw - Immunization history:: Adult Immunizations up to date. - Infectious Disease History:: Denies. - Social history:: Smoking status: Smoking status: Patient denies any tobacco usage or history of. Screenin:47 [facility] ED Fall Risk Assessment (Adult) History of falling in the last 3 months, ld1 including since admission No falls in past 3 months (0 pts) Confusion or Disorientation No (0 pts) Intoxicated or Sedated No (0 pts) Impaired Gait No (0 pts) Mobility Assist Device Used No (0 pt) Altered Elimination No (0 pt) Score/Fall Risk Level 0 - 2 = Low Risk Oriented to surroundings, Maintained a safe environment, Educated pt \T\ family on fall prevention, incl call for assistance when getting out of bed, Assessed \T\ reinforced patient's understanding of fall precautions, Provided non-skid footwear, Hourly rounding (assess needs \T\ fall precautionary measures) done, Used ambulatory aids as needed (educated on \T\ assisted with), Used gait belt as appropriate. Abuse screen: Denies threats or abuse. Denies injuries from another. Nutritional screening: No deficits noted. Tuberculosis screening: No symptoms or risk factors identified. Assessment: 15:47 General: Appears in no apparent distress. uncomfortable, Behavior is calm, cooperative, ld1 appropriate for age. Pain: Denies pain. Neuro: Level of Consciousness is awake, alert, obeys commands, Oriented to person, place, time, situation, Appropriate for age. Cardiovascular: Capillary refill < 3 seconds Patient's skin is warm and dry. Rhythm is sinus tachycardia. Respiratory: Airway is patent Respiratory effort is even, unlabored. GI: Abdomen is round non-distended, Reports nausea, vomiting. : No signs and/or symptoms were reported regarding the genitourinary system. EENT: No signs and/or symptoms were reported regarding the EENT system. Derm: No signs and/or symptoms reported regarding the dermatologic system. Musculoskeletal: No signs and/or symptoms reported regarding the musculoskeletal system. 16:58 Reassessment: Patient appears in no apparent distress at this time. No changes from ld1 previously documented assessment. Patient and/or family updated on plan of care and expected duration. Pain level reassessed. Patient is alert, oriented x 3, equal unlabored respirations, skin warm/dry/pink. 18:20 Reassessment: Patient appears in no apparent distress at this time. No changes from ld1 previously documented assessment. Patient and/or family updated on plan of care and expected duration. Pain level reassessed. C/O nausea, notified ERP. See MAR for orders. 19:15 General: Appears in no apparent distress. Behavior is calm, cooperative, appropriate rg5 for age. Pain: Complains of pain in abdomen Pain currently is 5 out of 10 on a pain scale. Quality of pain is described as crampy. 19:15 Neuro: Level of Consciousness is awake, alert, obeys commands, Oriented to person, rg5 place, time. Cardiovascular: Capillary refill < 3 seconds Patient's skin is warm and dry. Rhythm is sinus tachycardia. Respiratory: Airway is patent Respiratory effort is even, unlabored, Respiratory pattern is regular, symmetrical. GI: Abdomen is round non-distended, Reports vomiting. : No signs and/or symptoms were reported regarding the genitourinary system. EENT: No deficits noted. Derm: No signs and/or symptoms reported regarding the dermatologic system. Skin is intact, Skin is dry, Skin is normal, Skin temperature is warm. Musculoskeletal: No signs and/or symptoms reported regarding the musculoskeletal system. Range of motion: intact in all extremities. 20:00 Reassessment: No changes from previously documented assessment. Patient and/or family rg5 updated on plan of care and expected duration. Pain level reassessed. Patient is alert, oriented x 3, equal unlabored respirations, skin warm/dry/pink. 21:00 Reassessment: Patient and/or family updated on plan of care and expected duration. Pain rg5 level reassessed. Patient is alert, oriented x 3, equal unlabored respirations, skin warm/dry/pink. 22:00 Reassessment: Patient and/or family updated on plan of care and expected duration. Pain rg5 level reassessed. Patient is alert, oriented x 3, equal unlabored respirations, skin warm/dry/pink. Vital Signs: 14:05 BP 162 / 89; Pulse 99; Resp 16; Temp 96.9; Pulse Ox 100% ; Weight 63.5 kg; Height 5 ft. iw 4 in. ; Pain 8/10; 15:47 BP 155 / 97; Pulse 111; Resp 18; Pulse Ox 98% on R/A; ld1 16:58 BP 179 / 88; Pulse 113; Resp 18; Pulse Ox 97% on R/A; ld1 18:20 BP 173 / 90; Pulse 111; Resp 18; Pulse Ox 96% on R/A; ld1 19:15 BP 161 / 83; Pulse 113; Resp 18; Temp 98; Pain 5/10; rg5 20:00 BP 160 / 80; Pulse 114; Resp 18; Pulse Ox 94% on R/A; rg5 21:03 BP 159 / 79; Pulse 114; Resp 18; Temp 98.3(O); Pulse Ox 95% on R/A; Pain 5/10; rg5 22:00 BP 153 / 73; Pulse 117; Resp 17; Pulse Ox 98% on R/A; rg5 23:00 BP 156 / 75; Pulse 116; Resp 17; Temp 98; Pulse Ox 97% on R/A; rg5 02/05 00:07 BP 153 / 68; Pulse 116; Resp 17; Pulse Ox 98% on R/A; rg5 02/04 14:05 Body Mass Index 24.03 (63.50 kg, 162.56 cm) iw 02/04 14:05 Pain Scale: Adult iw 19:15 Pain Scale: Adult rg5 21:03 Pain Scale: Adult rg5 Astrid Coma Score: 02/04 19:15 Eye Response: spontaneous(4). Motor Response: obeys commands(6). Verbal Response: rg5 oriented(5). Total: 15. ED Course: 13:58 Patient arrived in ED. ra3 14:01 Marian Zabala FNP-C is [facility]. kb 14:01 Jorge Craven MD is Attending Physician. kb 14:05 Triage completed. iw 14:08 Arm band placed on. iw 14:38 Chest Single View XRAY In Process Unspecified. EDMS 15:25 Elizabeth Coon, MAIKEL is Primary Nurse. ld1 15:35 Inserted saline lock: 22 gauge in right antecubital area, using aseptic technique. ld1 Blood collected. Flushed with 10 mL NS. 15:47 Patient has correct armband on for positive identification. Placed in gown. Bed in low ld1 position. Call light in reach. Side rails up X2. nurse monitoring on. Pulse ox on. NIBP on. Door closed. Noise minimized. Warm blanket given. 15:47 No provider procedures requiring assistance completed. ld1 16:22 CT Abd/Pelvis - IV Contrast Only In Process Unspecified. EDMS 18:57 Buzombo, Festus, MD is Hospitalizing Provider. kb 19:15 Patient admitted, IV remains in place. intact, No redness/swelling at site. rg5 21:07 Awaiting bed assignment. rg5 23:31 Provided Education on: need for admit. rg5 Administered Medications: 15:46 Drug: NS 0.9% IV 1000 ml IV at 1 bolus Per protocol; 1000 mL bolus Route: IV; Rate: 1 ld1 bolus; Site: right antecubital; 19:15 Follow up: IV Status: Completed infusion; IV Intake: 1000ml rg5 15:46 Drug: Famotidine IVP 20 mg IVP once; dilute with 10 mL 0.9% NaCl; give over 2 minutes ld1 Route: IVP; Site: right antecubital; 21:12 Follow up: Response: No adverse reaction rg5 15:46 Drug: Ondansetron IVP 4 mg IVP once; over 2 minutes Route: IVP; Site: right antecubital;ld1 21:13 Follow up: Response: No adverse reaction rg5 18:22 Drug: Ondansetron IVP 4 mg IVP once; over 2 minutes Route: IVP; Site: right antecubital;ld1 21:12 Follow up: Response: No adverse reaction rg5 Medication: 15:47 VIS not applicable for this client. ld1 Intake: 19:15 IV: 1000ml; Total: 1000ml. rg5 Outcome: 18:57 Decision to Hospitalize by Provider. kb 23:30 Admitted to ER Hold. Please see [facility] for further documentation. rg5 23:30 Condition: stable 23:30 Demonstrated understanding of instructions, 02/05 08:33 Patient left the ED. rs5 Signatures: Dispatcher [employer] EDNM Marian Zabala, SCAFFOLDING HELPER-C SCAFFOLDING HELPER-Ckb Beba Evans, RN RN iw Elizabeth Coon RN RN ld1 Kiko Venegas RN RN rs5 Nanette Olsen ra3 Jeffrey Barber RN RN rg5 Corrections: (The following items were deleted from the chart) 02/04 22:57 22:54 BP 153 / 73; Pulse 117bpm; Resp 17bpm; Pulse Ox 98% RA; rg5 rg5
--- NOTE | 2024-02-05 18:57 | EDPHYS ---
Physician Documentation [facility] Name: Yadira Land Age: 73 yrs Sex: Female : 1950 Arrival Date: 02/05/2024 Time: 13:55 Bed 20 Private MD: ED Physician Jorge Craven HPI: 02/04 14:53 This 73 yrs old Female presents to ER via Wheelchair with complaints of kb Vomiting. 14:53 Pt is a 73 year old female who presents for nausea, vomiting and left abd pain that kb started last night. Denies fever, diarrhea. States she has had a cough and congestion for about a week, but she saw her dr for that last week. Denies chest pain, shortness of breath . Historical: - Allergies: 14:05 No Known Allergies; iw - Home Meds: 14:07 gabapentin 800 mg Oral tab 1 tab 3 times per day [Active]; aspirin 81 mg Oral cap 1 cap iw once daily [Active]; atorvastatin 40 mg Oral tab 1 tab once daily [Active]; celecoxib 200 mg Oral cap 1 cap once daily [Active]; citalopram 10 mg tab 1 tab once daily [Active]; montelukast 5 mg Oral chew 2 tabs once daily [Active]; chlorthalidone 25 mg Oral tab 1 tab once daily [Active]; clopidogrel 75 mg Oral tab 1 tab once daily [Active]; folic acid 1 mg Oral tab 1 tab once daily [Active]; losartan 100 mg Oral tab 1 tab once daily [Active]; - PMHx: 14:05 Diabetes - NIDDM; Hypertension; iw 14:07 RA; iw - PSHx: 14:07 Cholecystectomy; Appendectomy; knees; iw - Immunization history:: Adult Immunizations up to date. - Infectious Disease History:: Denies. - Social history:: Smoking status: Smoking status: Patient denies any tobacco usage or history of. ROS: 14:53 Constitutional: As per HPI kb Exam: 14:53 Constitutional: This is a well developed, well nourished patient who is awake, alert, kb and in no acute distress. Head/Face: Normocephalic, atraumatic. ENT: Moist Mucous membranes Cardiovascular: Regular rate Respiratory: Respirations even and unlabored. No increased work of breathing. Talking in full sentences Skin: Warm, dry with normal turgor. Normal color. MS/ Extremity: Pulses equal, no cyanosis. Neurovascular intact. Full, normal range of motion. Neuro: Awake and alert, GCS 15, oriented to person, place, time, and situation. Moves all extremities. Normal gait. 14:53 Abdomen/GI: Inspection: abdomen appears normal, Bowel sounds: normal, Palpation: soft, in all quadrants, mild abdominal tenderness, in the left upper quadrant and left lower quadrant, 14:53 Back: CVA tenderness, that is mild, is noted on the left, Vital Signs: 14:05 BP 162 / 89; Pulse 99; Resp 16; Temp 96.9; Pulse Ox 100% ; Weight 63.5 kg; Height 5 ft. iw 4 in. ; Pain 8/10; 15:47 BP 155 / 97; Pulse 111; Resp 18; Pulse Ox 98% on R/A; ld1 16:58 BP 179 / 88; Pulse 113; Resp 18; Pulse Ox 97% on R/A; ld1 18:20 BP 173 / 90; Pulse 111; Resp 18; Pulse Ox 96% on R/A; ld1 19:15 BP 161 / 83; Pulse 113; Resp 18; Temp 98; Pain 5/10; rg5 20:00 BP 160 / 80; Pulse 114; Resp 18; Pulse Ox 94% on R/A; rg5 21:03 BP 159 / 79; Pulse 114; Resp 18; Temp 98.3(O); Pulse Ox 95% on R/A; Pain 5/10; rg5 22:00 BP 153 / 73; Pulse 117; Resp 17; Pulse Ox 98% on R/A; rg5 23:00 BP 156 / 75; Pulse 116; Resp 17; Temp 98; Pulse Ox 97% on R/A; rg5 02/05 00:07 BP 153 / 68; Pulse 116; Resp 17; Pulse Ox 98% on R/A; rg5 02/04 14:05 Body Mass Index 24.03 (63.50 kg, 162.56 cm) iw 02/04 14:05 Pain Scale: Adult iw 19:15 Pain Scale: Adult rg5 21:03 Pain Scale: Adult rg5 Astrid Coma Score: 02/04 19:15 Eye Response: spontaneous(4). Motor Response: obeys commands(6). Verbal Response: rg5 oriented(5). Total: 15. MDM: 14:01 Patient medically screened. kb 14:55 Data reviewed: vital signs, nurses notes. kb 02/04 14:09 Order name: CBC with Diff; Complete Time: 20:12 kb 02/04 14:09 Order name: CMP; Complete Time: 15:58 kb 02/04 14:09 Order name: Lipase; Complete Time: 15:58 kb 02/04 14:09 Order name: Urinalysis w/ reflexes; Complete Time: 17:24 kb 02/04 14:09 Order name: Flu; Complete Time: 16:17 kb 02/04 14:09 Order name: SARS-COV-2 Antigen Rapid; Complete Time: 15:58 kb 02/04 20:09 Order name: CBC Smear Scan; Complete Time: 20:12 EDMS 02/04 14:09 Order name: CT Abd/Pelvis - IV Contrast Only; Complete Time: 16:43 kb 02/04 14:09 Order name: Chest Single View XRAY; Complete Time: 16:43 kb 02/04 14:09 Order name: IV Saline Lock; Complete Time: 15:35 kb 02/04 14:09 Order name: Labs collected and sent; Complete Time: 15:35 kb 02/04 17:24 Order name: PO challenge; Complete Time: 17:37 kb 02/04 18:12 Order name: Vital Signs; Complete Time: 18:22 kb Administered Medications: 15:46 Drug: NS 0.9% IV 1000 ml IV at 1 bolus Per protocol; 1000 mL bolus Route: IV; Rate: 1 ld1 bolus; Site: right antecubital; 19:15 Follow up: IV Status: Completed infusion; IV Intake: 1000ml rg5 15:46 Drug: Famotidine IVP 20 mg IVP once; dilute with 10 mL 0.9% NaCl; give over 2 minutes ld1 Route: IVP; Site: right antecubital; 21:12 Follow up: Response: No adverse reaction rg5 15:46 Drug: Ondansetron IVP 4 mg IVP once; over 2 minutes Route: IVP; Site: right antecubital;ld1 21:13 Follow up: Response: No adverse reaction rg5 18:22 Drug: Ondansetron IVP 4 mg IVP once; over 2 minutes Route: IVP; Site: right antecubital;ld1 21:12 Follow up: Response: No adverse reaction rg5 Disposition Summary: 02/05/24 18:57 Hospitalization Ordered Notes: Hospitalization Status: Observation kb Provider: Prince rosa Laura Condition: Stable kb Problem: new kb Symptoms: are unchanged kb Bed/Room Type: Standard kb Location: Telemetry/MedSurg (observation)(02/06/24 07:46) iw Room Assignment: 203(02/06/24 07:46) Diagnosis - Nausea with vomiting, unspecified kb - Abdominal pain, unspecified kb Forms: - Medication Reconciliation Form kb - SBAR form kb - Leadership Thank You Letter kb Addendum: 02/08/2024 15:54 Co-signature as Attending Physician, Jorge Craven MD I agree with the assessment and c curry plan of care. Signatures: Dispatcher [employer] EDMS Marian Zabala, CRITICAL CARE CLINICAL NURSE SPECIALIST-C CRITICAL CARE CLINICAL NURSE SPECIALIST-Ckb Jorge Craven MD MD cha Williams, Irene RN RN Elizabeth Coon RN RN 1 Sravanthi Fraga 1 Jeffrey Barber RN rg5 Corrections: (The following items were deleted from the chart) 02/04 14:10 14:10 Influenza Screen (A \T\ B)+BA.LAB.BRZ ordered. EDMS EDMS 14:10 14:10 SARS-COV-2 Antigen Rapid+I.LAB.BRZ ordered. EDMS EDMS 23:10 18:57 Telemetry/MedSurg (observation) kb rv1 23:10 18:57 kb rv1 02/05 07:46 02/04 23:10 BR ER HOLD rv1 iw 02/05 07:46 02/04 23:10 ERHOLD- rv1
[2024-02-05] MEDS: PANTOPRAZOLE 40 MG INJ IVP SCH (19:39)
[2024-02-05] MEDS ORDERED: SODIUM CHLORIDE 0.9% 10ML INJ IV PRN (19:39)
[2024-02-05] MEDS: LACTULOSE 20 GM/30 ML UCUP PO ONE (19:41)
--- NOTE | 2024-02-05 19:41 | P.HP ---
Certification for Inpatient Patient admitted to: Observation With expected LOS: <2 Midnights Practitioner: I am a practitioner with admitting privileges, knowledge of patient current condition, hospital course, and medical plan of care. Services: Services provided to patient in accordance with Admission requirements found in Title 42 Section 412.3 of the Code of Federal Regulations Patient History Date of Service: 02/05/24 Reason for admission: Intractable nausea vomiting and abdominal pain History of Present Illness: Patient is a 73-year-old female with a past medical history of hypertension and non-insulin diabetes mellitus. She presented to the ER complaining of a 2-day history of abdominal pain associated with nausea and vomiting. Patient is also reporting some constipation recently. She denies any fever or chills. Her labs were unremarkable. CT abdomen pelvis revealed moderate stool burden. During my evaluation, patient was vomiting. Allergies No Known Allergies Allergy (Verified 10/10/22 12:47) Home Medications: Gabapentin 1 tab PO TID 02/16/22 Semaglutide [Ozempic] 0.25 mg SQ Q7D 02/16/22 Acetaminophen [Tylenol Extra Strength] 1 - 2 tab PO PRN PRN 10/04/22 Alendronate Sodium 70 mg PO Q7D 10/04/22 Empagliflozin [Jardiance] 10 mg PO DAILY 10/04/22 Hydrocodone 7.5/APAP 325 [[place] 7.5/325 mg*] 1 tab PO Q4H PRN tab 10/11/22 - Past Medical/Surgical History Diabetic: Yes -: htn -: neuropathy -: arthritis -: H-PYLORI -: HYPOXIA -: DYSPNEA(Mar) -: cholecystectomy -: appendectomy -: cataract right sx -: left knee sx - Family History Father Notes: ulcers Mother -: Hypertension, Diabetes, Cancer Notes: stomach cancer - Social History Alcohol use: Yes CD- Drugs: No Caffeine use: Yes Physical Examination - Physical Exam General: Mild distress HEENT: Atraumatic, Normocephalic Respiratory: Clear to auscultation bilaterally, Normal air movement Cardiovascular: No edema, Regular rate/rhythm (Tachycardic) Gastrointestinal: Soft and benign, Non-distended Neurological: Normal speech - Studies Laboratory Data (last 24 hrs) 02/05/24 02/05/24 15:25 15:25 WBC 9.30 Hgb 12.5 Hct 37.6 Plt Count 193 Sodium 136 Potassium 3.8 BUN 14 Creatinine 1.02 Glucose 154 H Total Bilirubin 1.0 AST 20 ALT 27 Alkaline Phosphatase 95 Lipase 121 H Microbiology Data (last 24 hrs): 02/05/24 15:25 Nasopharnyx Influenza Type A Antigen Screen - Final 02/05/24 15:25 Nasopharnyx Influenza Type B Antigen Screen - Final Assessment and Plan - Problems (Diagnosis) (1) CVA (cerebral vascular accident) Current Visit: No Status: Acute Qualifiers: (2) Chronic back pain Current Visit: No Status: Acute Qualifiers: (3) Constipation Current Visit: No Status: Acute Qualifiers: (4) DM2 (diabetes mellitus, type 2) Current Visit: No Status: Acute Qualifiers: (5) HTN (hypertension) Current Visit: No Status: Acute Qualifiers: (6) Hyperlipidemia Current Visit: No Status: Acute Qualifiers: - Plan Assessment This is a 73-year-old female who is presenting with intractable abdominal pain, nausea and vomiting. CT abdomen pelvis showed moderate stool burden. She has a lipase of 121. Patient appeared in distress during my evaluation. She is staying because of poor p.o. tolerance. Intractable nausea and vomiting Abdominal pain Constipation Hypertension Type 2 diabetes mellitus Plan: Will admit under observation Normal saline infusion Start antiemetics and PPI Will give a dose of lactulose for stool burden Resume home medications upon reconciliation Patient is full code - Advance Directives Does patient have a Living Will: No Does patient have a Durable POA for Healthcare: No
[2024-02-05] MEDS: NA CHLORIDE 0.9% 1,000 ML IV SCH (20:00)
[2024-02-05 20:07] LABS: White Blood Cell Scan OK (OK)
[2024-02-05 20:08] LABS: Blood Morphology Comment NOTED (NOT SEEN); Platelet Estimate ADEQ
[2024-02-05 20:09] LABS: Ovalocytes SLIGHT; Poikilocytosis SLIGHT
[2024-02-05] MEDS ORDERED: LACTULOSE 20 GM/30 ML UCUP ONE (21:37)
[2024-02-05] MEDS ORDERED: PANTOPRAZOLE 40 MG INJ ONE (21:37)
[2024-02-05] MEDS: ONDANSETRON 4 MG/2 ML VIAL IV PRN (21:45)
--- NOTE | 2024-02-06 07:13 | P.PN ---
Date of Service: 02/06/24 Subjective: last BM was ~4 days ago. Regularly has bowel movements every other day continues with nausea/vomiting; last episode ~time she was brought to floor from ER Doesn't feel any worse but doesn't feel better denies trouble urinating feels dizzy ROS: 10 point ROS as noted above, otherwise negative Physical Exam: GEN: Alert, oriented, uncomfortable appearing CV: Regular rate and rhythm, no edema Pulm: Nonlabored respirations on room air, clear bilaterally ABD: Soft, TTP in left abdomen Neuro: Normal speech, normal affect vitals reviewed Problem List: Intractable nausea and vomiting left sided abdominal pain Constipation Hypertension NIDDM2 with neuropathy Arthritis Intractable nausea and vomiting left sided abdominal pain Constipation presents with nausea/vomiting left-sided abdominal pain for ~1 day. last BM was ~4 days ago. Regularly has bowel movements every other day. CT abdomen (02/04): moderate stool within colon. Distended bladder. Also noted: 2..4cm splenic cyst, small left renal cyst, calcified uterine fibroids Check bladder scan/PVR given distended bladder on CT - ordered 02/05 given 1L IVF and zofran in ED. liquid diet for now continue IVF daily PPI PRN zofran given lactulose x1 yesterday evening no BM yet suppository x1 ordered (02/05) NIDDM2 with neuropathy accu-cheks, SSI Hypertension Arthritis confirm home meds, restart as appropriate Code: Full Dispo: Home Pending n/v resolve, able to tolerate PO ~1-2 days Time Spent Managing Pts Care (In Minutes): 41
[2024-02-06 10:55] LABS: Absolute Basophils 0.1 K/uL (0-0.5); Absolute Lymphocytes (CBC) 1.2 K/uL (0.7-4.9); Basophils % 0.5 % (0-1.3); Hematocrit 33.6 % (36.0-45.0); Hemoglobin 11.2 g/dL (12.0-15.0); Lymphocytes % 12.1 % (15.3-44.8); MCH 29.1 pg (27.0-35.0); MCHC 33.2 g/dL (32.0-36.0); MCV 87.7 fL (80-100); MPV 9.5 fL (7.6-11.3); Monocytes % 9.7 % (3.3-12.3); Neutrophils % 77.7 % (41.7-73.7); Platelets 168 thou/uL (152-406); RBC Red Blood Cell Count 3.83 M/uL (3.86-4.86)
[2024-02-06 11:16] LABS: Albumin 3.1 g/dL (3.4-5.0); Anion Gap 12.8 mEq/L (5.0-15.0); Bilirubin Total 0.7 mg/dL (0.2-1.0); Globulin 3.2 g/dL (2.3-3.5); Potassium 3.8 mEq/L (3.5-5.1); Protein, Total 6.3 g/dL (6.4-8.2)
[2024-02-06] MEDS: BISACODYL 10 MG RECTAL SUPP PR ONE (12:02)
[2024-02-06] MEDS: BISACODYL 10 MG RECTAL SUPP ONE (14:22)
[2024-02-06] MEDS ORDERED: SOTALOL HCL 80 MG TAB PO SCH (18:00)
[2024-02-06] MEDS: HYDROMORPHONE HCL 1 MG/ML INJ IV ONE (21:14)
[2024-02-07] MEDS: PROMETHAZINE INJ 25 MG/ML AMP IV ONE (01:22)
[2024-02-07 02:53] VITALS: BMI 24.0
[2024-02-07] MEDS: HYDRALAZINE HCL 20 MG/ML VIAL IV PRN (03:54)
[2024-02-07 07:05] LABS: Absolute Lymphocytes (CBC) 0.9 K/uL (0.7-4.9); Absolute Monocytes 0.3 K/uL (0.1-1.3); Absolute Neutrophil 10.7 K/uL (1.8-8.0); Basophils % 0.3 % (0-1.3); Hematocrit 35.9 % (36.0-45.0); Hemoglobin 11.6 g/dL (12.0-15.0); Lymphocytes % 7.8 % (15.3-44.8); MCH 28.3 pg (27.0-35.0); MCHC 32.3 g/dL (32.0-36.0); MCV 87.5 fL (80-100); MPV 9.9 fL (7.6-11.3); Monocytes % 2.8 % (3.3-12.3); Neutrophils % 89.1 % (41.7-73.7); Platelets 185 thou/uL (152-406)
[2024-02-07] MEDS ORDERED: MORPHINE 2 MG/ML SYR IV PRN (07:10)
[2024-02-07 07:25] LABS: Albumin 3.5 g/dL (3.4-5.0); Albumin/Globulin Ratio 1.1 (1.1-1.8); Anion Gap 15.2 mEq/L (5.0-15.0); Bilirubin Total 1.2 mg/dL (0.2-1.0); Globulin 3.3 g/dL (2.3-3.5); Magnesium 1.7 mg/dL (1.6-2.4); Potassium 4.2 mEq/L (3.5-5.1); Protein, Total 6.8 g/dL (6.4-8.2)
--- NOTE | 2024-02-07 10:23 | P.PN ---
Date of Service: 02/07/24 Subjective: continued with abdominal pain but not as severe. +still TTP Been dealing with intermittent dizziness comes and goes for few days at a time; ongoing for at least 1 month Dizziness worsened with getting up / movement. feels the room is spinning at times. small BM after suppository yesterday episode of vomiting overnight ROS: 10 point ROS as noted above, otherwise negative Physical Exam: GEN: Alert, oriented, uncomfortable appearing CV: Regular rate and rhythm, no edema Pulm: Nonlabored respirations on room air, clear bilaterally ABD: Soft, TTP in left abdomen Neuro: Normal speech, normal affect vitals reviewed Problem List: Intractable nausea and vomiting left sided abdominal pain Constipation Hypertension Intermittent Dizziness NIDDM2 with neuropathy Arthritis Intractable nausea and vomiting left sided abdominal pain Constipation Unclear etiology, possible constipation/ileus, possible viral respiratory infection Patient without any signs of infection, SIRS criteria negative presents with nausea/vomiting left-sided abdominal pain for ~1 day. last BM was ~4 days ago. Regularly has bowel movements every other day. CT abdomen (02/04): moderate stool within colon. Distended bladder. Also noted: 2..4cm splenic cyst, small left renal cyst, calcified uterine fibroids Check bladder scan/PVR given distended bladder on CT ' ordered 02/05, still not done this morning; will check given 1L IVF and zofran in ED. liquid diet for now continue IVF daily PPI PRN zofran given lactulose x1 (02/04), suppository x1 (02/05) small BM after suppository yesterday suppository x1 ordered (02/06) Hypertension Intermittent Dizziness BP elevated to 200s this morning Been dealing with intermittent dizziness comes and goes for few days at a time; ongoing for at least 1-2 months worsened with getting up / movement. feels the room is spinning at times Possibly related to ?vertigo confirm home meds, unsure what meds if any shes taking for HTN. Patient unable to tell me NIDDM2 with neuropathy accu-cheks, SSI Arthritis confirm home meds, restart as appropriate Code: Full Dispo: Home Pending n/v resolve, able to tolerate PO ~1-2 days Time Spent Managing Pts Care (In Minutes): 41
[2024-02-07] MEDS: BISACODYL 10 MG RECTAL SUPP PR ONE ×2 (13:16→13:28)
[2024-02-07] MEDS: CODEINE 30MG/APAP 300MG TAB PO PRN (13:27)
[2024-02-07] MEDS: DOCUSATE NA 100 MG CAP PO SCH (20:42)
[2024-02-08 06:38] LABS: Absolute Lymphocytes (CBC) 1.1 K/uL (0.7-4.9); Absolute Monocytes 0.8 K/uL (0.1-1.3); Absolute Neutrophil 7.6 K/uL (1.8-8.0); Basophils % 0.3 % (0-1.3); Hematocrit 33.6 % (36.0-45.0); Hemoglobin 11.2 g/dL (12.0-15.0); Lymphocytes % 11.4 % (15.3-44.8); MCHC 33.5 g/dL (32.0-36.0); MCV 86.7 fL (80-100); MPV 9.3 fL (7.6-11.3); Monocytes % 8.3 % (3.3-12.3); Platelets 177 thou/uL (152-406); RBC Red Blood Cell Count 3.87 M/uL (3.86-4.86); Red Cell Distribution Width 15.3 % (12.1-15.2)
[2024-02-08 06:52] LABS: ALT/SGPT 22 U/L (13-56); AST/SGOT 15 U/L (15-37); Albumin 3.3 g/dL (3.4-5.0); Albumin/Globulin Ratio 1.2 (1.1-1.8); Alkaline Phosphatase 66 U/L (45-117); Anion Gap 9.5 mEq/L (5.0-15.0); BUN Blood Urea Nitrogen 27 mg/dL (7-18); Bicarbonate 25 mEq/L (21-32); Bilirubin Total 0.9 mg/dL (0.2-1.0); Globulin 2.8 g/dL (2.3-3.5); Glomerular Filtration Rate 56 ml/min (=/>90); Glucose Level 131 mg/dL (74-106); Magnesium 1.8 mg/dL (1.6-2.4); Phosphorus 2.6 mg/dL (2.5-4.9); Potassium 3.5 mEq/L (3.5-5.1); Protein, Total 6.1 g/dL (6.4-8.2); Sodium Level 138 mEq/L (136-145)
[2024-02-08 06:55] LABS: C-Reactive Protein < 2.90 mg/L (<3.00)
[2024-02-08] MEDS: POTASSIUM CL SA 10 MEQ TAB PO ONE (08:49)
[2024-02-08] MEDS: MAGNESIUM SULFATE 1 gm IVPB 1 GM/100 ML BAG IV ONE (08:49)
--- NOTE | 2024-02-08 09:18 | RAD REPORT ---
EXAM DESCRIPTION: US - Renal Ultrasound-Complete - 02/08/2024 6:01 am CLINICAL HISTORY: Abdominal pain COMPARISON: 2021 FINDINGS: The right kidney measures 9 cm with a normal echotexture. The left kidney measures 9 cm with a normal echotexture. . 1.5 centimeter left renal cyst Hydronephrosis is not seen. Bladder is decompressed and poorly evaluated IMPRESSION: No significant abnormality is displayed
--- NOTE | 2024-02-08 10:25 | P.PN ---
Date of Service: 02/08/24 Subjective: feels she hasn't really gotten better, but not neccessarily worse pain seems to be slightly improved, but still quite tender no vomiting, but having nausea and hiccups still no BM still feeling nauseous with intake. Minimal PO intake ROS: 10 point ROS as noted above, otherwise negative Physical Exam: GEN: Alert, orientedx3 CV: Regular rate and rhythm, no edema Pulm: Nonlabored respirations on room air, clear bilaterally ABD: Soft, moderate TTP in left lower quadrant Neuro: Normal speech, normal affect vitals reviewed Problem List: Intractable nausea and vomiting left sided abdominal pain Constipation Hypertension Intermittent Dizziness NIDDM2 with neuropathy Arthritis Intractable nausea and vomiting left sided abdominal pain Constipation Unclear etiology, possible constipation/ileus, possible viral infection Patient without any signs of infection, SIRS criteria negative On admission, presents with left-sided abdominal pain, intractable nausea/vomiting for ~1 day last BM was ~4 days ago prior to admission. Regularly has bowel movements every other day. CT abdomen (02/04): moderate stool within colon. Distended bladder Post void residual (02/06): 19 ml advance to regular diet (02/07) continue IVF at lower rate daily PPI PRN zofran continue colace BID given lactulose x1 (02/04), s/p multiple suppositories with minimal relief Small BM 02/04 after medication; no further BM yet still feeling pain in left lower quadrant, feels bloated CT abdomen/pelvis ordered t/o reeval Discussed using another oral laxative versus an enema. Patient states would prefer oral regimen right now We will repeat CT, given severity of tenderness, lack of improvement Hypertension Intermittent Dizziness Been dealing with intermittent dizziness for few days at a time; ongoing for at least 1-2 months worsened with getting up / movement. feels the room is spinning at times Possibly related to ?vertigo confirm home meds, unsure what meds if any shes taking for HTN. Patient unable to tell me IV hydralazine for now NIDDM2 with neuropathy accu-cheks, SSI Arthritis confirm home meds, restart as appropriate Code: Full Dispo: Home Pending pain improves, appetite improves, ~1-2 days Time Spent Managing Pts Care (In Minutes): 41
--- NOTE | 2024-02-08 11:40 | RAD REPORT ---
EXAM DESCRIPTION: CT - Abdomen Pelvis W Contrast - 02/08/2024 11:14 am CLINICAL HISTORY: Abdominal pain. Left lower quadrant pain COMPARISON: February 05, 2024 TECHNIQUE: Computed axial tomography of the abdomen pelvis was obtained. 100 cc Isovue-300 was admin istered intravenously. Oral contrast was not requested which limits evaluation of bowel and appendix All CT scans are performed using dose optimization technique as appropriate and may include automated exposure control or mA/KV adjustment according to patient size. FINDINGS: 2.4 centimeters splenic cyst. Liver, pancreas, and adrenals unremarkable Small left renal cyst. Tiny bilateral nonobstructing renal calculi Calcified uterine fibroids are present. No adnexal mass No evidence of diverticulitis. Moderate amount stool within the colon Borderline bladder distention IMPRESSION: Moderate amount stool within colon
[2024-02-08] MEDS: LACTULOSE 20 GM/30 ML UCUP PO ONE (14:32)
[2024-02-08] MEDS: NA CHLORIDE 0.9% 1,000 ML IV SCH (23:13)
[2024-02-09 06:53] LABS: ALT/SGPT 24 U/L (13-56); AST/SGOT 18 U/L (15-37); Alkaline Phosphatase 60 U/L (45-117); Anion Gap 11.2 mEq/L (5.0-15.0); BUN Blood Urea Nitrogen 17 mg/dL (7-18); Bicarbonate 26 mEq/L (21-32); Bilirubin Total 0.8 mg/dL (0.2-1.0); Globulin 2.9 g/dL (2.3-3.5); Glomerular Filtration Rate 83 ml/min (=/>90); Glucose Level 103 mg/dL (74-106); Potassium 3.2 mEq/L (3.5-5.1); Protein, Total 5.9 g/dL (6.4-8.2); Sodium Level 137 mEq/L (136-145)
[2024-02-09 06:55] LABS: C-Reactive Protein < 2.90 mg/L (<3.00)
[2024-02-09] MEDS: POTASSIUM CL SA 10 MEQ TAB PO ONE (09:46)
--- NOTE | 2024-02-09 11:40 | P.PN ---
Date of Service: 02/09/24 Subjective: 2 BM with relief last 24 hours. Abdominal discomfort improving dizzy/nauseous today. Denies any vomiting feels room is spinning at times; worsened with getting up/movement. minimal intake yesterday d/t nausea BP elevated in 200s this morning ROS: 10 point ROS as noted above, otherwise negative Physical Exam: GEN: Alert, orientedx3 CV: Regular rate and rhythm, no edema Pulm: Nonlabored respirations on room air, clear bilaterally ABD: Soft, moderate TTP in left lower quadrant Neuro: Normal speech, normal affect vitals reviewed Problem List: Intractable nausea and vomiting left sided abdominal pain Constipation Hypertension Intermittent Dizziness NIDDM2 with neuropathy Arthritis Intractable nausea and vomiting left sided abdominal pain Constipation Unclear etiology, possible constipation/ileus, possible viral infection Patient without any signs of infection, SIRS criteria negative On admission, presents with left-sided abdominal pain, intractable nausea/vo miting for ~1 day last BM was ~4 days ago prior to admission. Regularly has bowel movements every other day. CT abdomen (02/04): moderate stool within colon. Distended bladder Post void residual (02/06): 19 ml given lactulose x1 (02/04), s/p multiple suppositories with minimal relief repeat CT (02/07): moderate stool burden. Borderline bladder distention 2 BM with relief in the last 24 hours. Abdominal discomfort improving continue colace BID continue PPI carafate added 02/08 IVF dc'd 02/08 Hypertension Intermittent Dizziness Been dealing with intermittent dizziness for few days at a time; ongoing for at least 1-2 months worsened with getting up / movement. feels the room is spinning at times Possibly related to ?vertigo ? Hypertensive urgency confirm home meds, unsure what meds if any shes taking for HTN. Patient unable to tell me IV hydralazine for now NIDDM2 with neuropathy accu-cheks, SSI Arthritis confirm home meds, restart as appropriate Code: Full Dispo: Home Pending pain improves, appetite improves, ~1-2 days Time Spent Managing Pts Care (In Minutes): 41
[2024-02-09] MEDS: AMLODIPINE 5 MG TAB PO ONE (15:32)
[2024-02-09] MEDS: SUCRALFATE 1GM/10ML UCUP FT SCH (15:59)
[2024-02-10 05:14] LABS: Absolute Eosinophils 0.1 K/uL (0-0.5); Absolute Lymphocytes (CBC) 1.3 K/uL (0.7-4.9); Absolute Monocytes 0.9 K/uL (0.1-1.3); Absolute Neutrophil 5.3 K/uL (1.8-8.0); Basophils % 0.6 % (0-1.3); Eosinophils % 0.7 % (0-4.4); Hematocrit 34.9 % (36.0-45.0); Hemoglobin 11.6 g/dL (12.0-15.0); Lymphocytes % 17.2 % (15.3-44.8); MCH 28.9 pg (27.0-35.0); MCHC 33.2 g/dL (32.0-36.0); MCV 87.1 fL (80-100); MPV 9.8 fL (7.6-11.3); Monocytes % 11.9 % (3.3-12.3); Neutrophils % 69.6 % (41.7-73.7); Platelets 156 thou/uL (152-406); RBC Red Blood Cell Count 4.01 M/uL (3.86-4.86); Red Cell Distribution Width 14.9 % (12.1-15.2)
[2024-02-10 05:37] LABS: ALT/SGPT 24 U/L (13-56); AST/SGOT 18 U/L (15-37); Alkaline Phosphatase 64 U/L (45-117); Anion Gap 8.6 mEq/L (5.0-15.0); BUN Blood Urea Nitrogen 15 mg/dL (7-18); Bicarbonate 30 mEq/L (21-32); Glomerular Filtration Rate 75 ml/min (=/>90); Glucose Level 123 mg/dL (74-106); Lipase 53 U/L (13-75); Magnesium 1.8 mg/dL (1.6-2.4); Potassium 3.6 mEq/L (3.5-5.1); Sodium Level 135 mEq/L (136-145)
[2024-02-10 05:41] LABS: C-Reactive Protein < 2.90 mg/L (<3.00)
[2024-02-10] MEDS ORDERED: KCL 20 MEQ/100 mL IVPB 20 MEQ/100 ML BAG IV SCH (07:00)
[2024-02-10] MEDS: MAGNESIUM SULFATE 1 gm IVPB 1 GM/100 ML BAG IV ONE (08:18)
[2024-02-10] MEDS: ASPIRIN EC 81 MG TAB PO SCH (08:18)
[2024-02-10] MEDS: AMLODIPINE 5 MG TAB PO SCH (08:18)
[2024-02-10] MEDS: POTASSIUM CL SA 10 MEQ TAB PO ONE (08:18)
[2024-02-10] MEDS: CLOPIDOGREL 75 MG TABLET PO SCH (08:19)
--- NOTE | 2024-02-10 10:23 | P.PN ---
Date of Service: 02/10/24 Subjective: doesn't feel better or worse no significant change - beyond able to tolerate some oatmeal this morning still feels dizzy/lightheaded when trying to get up nausea and vomiting after ~30min of eating denies prior history of similar grand-daugther on phone reports remote history of some issue with inner ear / that causing some dizziness ROS: 10 point ROS as noted above, otherwise negative Physical Exam: GEN: Alert, orientedx3, appears fatigued CV: Regular rate and rhythm / intermittent mild sinus tachycardia, no edema Pulm: Nonlabored respirations on room air, clear bilaterally ABD: Soft, moderate TTP epigastrium Neuro: Normal speech, normal affect vitals reviewed Problem List: Intractable nausea and vomiting; epigastric pain LLQ abdominal pain, improved Constipation Hypertension Intermittent Dizziness with +Orthostatic Hypotension NIDDM2 with neuropathy Arthritis Intractable nausea and vomiting; epigastric pain LLQ abdominal pain, improved Constipation Unclear etiology, possible constipation/ileus, possible viral infection patient denies history of similar, however prior notes mention history of h. pylori tenderness and symptoms - may be ulcer, less likely gastroparesis consulted GI - Dr. Hernandez, 02/10/24, will see patient Patient without any signs of infection, SIRS criteria negative On admission, presents with left-sided abdominal pain, intractable nausea/vomiting for ~1 day, with some epigastric tenderness and LLQ tender on exam CT abdomen (02/04): moderate stool within colon. Distended bladder Post void residual (02/06): 19 ml given lactulose x1 (02/04), s/p multiple suppositories with minimal relief repeat CT (02/07): moderate stool burden. Borderline bladder distention s/p 2 BM with relief after repeat CT. Abdominal discomfort improving continue colace BID continue PPI carafate added 02/08 IVF dc'd 02/08 for trial restart IVF 02/09 - pt orthostatic and still not eating much Hypertension Intermittent Dizziness with +Orthostatic Hypotension Been dealing with intermittent dizziness for few days at a time; ongoing for at least 1-2 months worsened with getting up / movement. feels the room is spinning at times Possibly related to ?vertigo vs ?HTN urgency Orthostatic positive 02/09 with PT avoid BP meds / vasodilators for now PT consult NIDDM2 with neuropathy accu-cheks, SSI Arthritis confirm home meds, restart as appropriate Code: Full Dispo: Home Pending pain improves, appetite improves, dizziness improves ~2 days GI eval, may benefit from EGD Time Spent Managing Pts Care (In Minutes): 41
[2024-02-10] MEDS: ONDANSETRON 4 MG/2 ML VIAL IV ONE (12:13)
[2024-02-10] MEDS: D5.45NS W/KCL 20MEQ 20 MEQ/1,000 ML BAG IV SCH (12:13)
[2024-02-10] MEDS: NA CHLORIDE 0.9% 1,000 ML ONE (13:43)
[2024-02-10] MEDS ORDERED: propofoL 200 MG/20 ML VIAL IV ONE (14:36)
[2024-02-10] MEDS ORDERED: LIDOCAINE 1% MPF 30 ML VIAL ONE (14:36)
[2024-02-10] MEDS: ONDANSETRON 4 MG/2 ML VIAL IV PRN (21:42)
[2024-02-10] MEDS: ATORVASTATIN 80 MG TAB PO SCH (21:45)
[2024-02-11 07:47] LABS: Anion Gap 8.7 mEq/L (5.0-15.0); Magnesium 1.9 mg/dL (1.6-2.4); Potassium 3.7 mEq/L (3.5-5.1)
--- NOTE | 2024-02-11 14:10 | P.PN ---
Subjective Date of Service: 02/11/24 Chief Complaint: Intractable nausea vomiting and abdominal pain Physical Examination - Vital Signs Temperature: 98.6 F Blood Pressure: 133/62 Pulse: 84 Respirations: 16 Pulse Ox (%): 95 Assessment And Plan - Plan Physical Exam: GEN: Alert, orientedx3, appears fatigued CV: Regular rate and rhythm / intermittent mild sinus tachycardia, no edema Pulm: Nonlabored respirations on room air, clear bilaterally ABD: Soft, moderate TTP epigastrium Neuro: Normal speech, normal affect vitals reviewed Problem List: Intractable nausea and vomiting; epigastric pain LLQ abdominal pain, improved Constipation Hypertension Intermittent Dizziness with +Orthostatic Hypotension NIDDM2 with neuropathy Arthritis Intractable nausea and vomiting; epigastric pain LLQ abdominal pain, improved Constipation History of irritable bowel syndrome Unclear etiology, possible constipation/ileus. Patient denies history of peptic ulcer. patient denies history of similar, however prior notes mention history of h. pylori History of gastroparesis. GI consulted, Dr. Hernandez to see patient. CT abdomen (02/04): moderate stool within colon. Distended bladder Post void residual (02/06): 19 ml. s/p 2 BM with relief after repeat CT. continue colace BID continue PPI Continue Carafate Continue IV fluids for orthostasis. Hypertension Postural dizziness Orthostatic Hypotension Patient noted to be significantly orthostatic. avoid BP meds / vasodilators for now Continue PT. Orthostatic precautions. NIDDM2 with neuropathy accu-cheks, SSI Arthritis Continue home medications. Continue PT Code: Victim Advocate Spent Managing Pts Care (In Minutes): 35
[2024-02-11] MEDS: POTASSIUM PHOS IN 0.9 % NACL 15 MMOL/250 ML BAG IV ONE (20:25)
[2024-02-11 21:40] VITALS: O2SAT 97
[2024-02-12 04:53] LABS: Absolute Eosinophils 0.1 K/uL (0-0.5); Absolute Lymphocytes (CBC) 1.1 K/uL (0.7-4.9); Absolute Monocytes 0.9 K/uL (0.1-1.3); Absolute Neutrophil 5.3 K/uL (1.8-8.0); Basophils % 0.5 % (0-1.3); Eosinophils % 0.9 % (0-4.4); Hematocrit 35.2 % (36.0-45.0); Hemoglobin 12.1 g/dL (12.0-15.0); MCH 29.5 pg (27.0-35.0); MCHC 34.4 g/dL (32.0-36.0); MCV 85.9 fL (80-100); MPV 9.7 fL (7.6-11.3); Monocytes % 12.2 % (3.3-12.3); Neutrophils % 71.4 % (41.7-73.7); Platelets 148 thou/uL (152-406); RBC Red Blood Cell Count 4.09 M/uL (3.86-4.86); Red Cell Distribution Width 14.9 % (12.1-15.2)
[2024-02-12 05:02] LABS: Phosphorus 2.7 mg/dL (2.5-4.9)
--- NOTE | 2024-02-12 09:15 | P.DS ---
Admission Date: 02/06/24 Discharge Date: 02/12/24 Disposition: ROUTINE DISCHARGE Discharge Condition: FAIR Reason for Admission: Intractable nausea vomiting and abdominal pain Brief History of Present Illness: Patient is a 73-year-old female with a past medical history of hypertension and non-insulin diabetes mellitus. She presented to the ER complaining of a 2-day history of abdominal pain associated with nausea and vomiting. Patient is also reported constipation. She denied any fever or chills. Her labs were unremarkable. CT abdomen pelvis revealed moderate stool burden. Patient was hospitalized for further management. Hospital Course: Diagnosis Intractable nausea and vomiting; epigastric pain LLQ abdominal pain, improved Constipation Hypertension Intermittent Dizziness with +Orthostatic Hypotension NIDDM2 with neuropathy Arthritis Patient admitted to the medical floor and the following medical problems addressed: Intractable nausea and vomiting; epigastric pain LLQ abdominal pain, improved Constipation History of irritable bowel syndrome Intractable nausea and vomiting possiblly constipation/ileus. Patient denies history of peptic ulcer. History of gastroparesis. Patient seen and evaluated by GI Dr. Hernandez. EGD done which showed gastritis. Patient treated with sucralfate and Protonix s/p multiple bowel movements afterwards with stool softeners. Nausea and vomiting resolved, patient tolerated solid diet. Patient is currently tolerating solid diet Hypertension Postural dizziness Orthostatic Hypotension Patient noted to be significantly orthostatic. She has supine hypertension and postural hypotension. Supine hypertension is being managed with amlodipine. Patient advised to wear stockings. Orthostatic precautions also advised. Patient was not dizzy with standing after orthostatic precautions were observed. She is prescribed low-dose midodrine to be used as needed for hypotension with standing. NIDDM2 with neuropathy Managed with accu-cheks, SSI Arthritis Continued home medications. Patient received PT. Vital Signs/Physical Exam: Temp Pulse Resp BP Pulse Ox 99.3 F 88 20 174/89 H 97 02/12/24 04:00 02/12/24 04:00 02/12/24 04:00 02/12/24 04:00 02/12/24 04:00 General: Alert, In no apparent distress, Oriented x3 HEENT: Mucous membr. moist/pink, Sclerae nonicteric Neck: Supple, JVD not distended Respiratory: Clear to auscultation bilaterally, Normal air movement Cardiovascular: No edema, Regular rate/rhythm, Normal S1 S2 Gastrointestinal: Normal bowel sounds, Soft and benign, Non-distended, No tenderness Musculoskeletal: No swelling Integumentary: No rashes Laboratory Data at Discharge: WBC 7.40 thou/uL (4.3-10.9) 02/12/24 04:14 Hgb 12.1 g/dL (12.0-15.0) 02/12/24 04:14 Hct 35.2 % (36.0-45.0) L 02/12/24 04:14 Plt Count 148 thou/uL (152-406) L 02/12/24 04:14 Sodium 134 mEq/L (136-145) L 02/12/24 04:14 Potassium 4.0 mEq/L (3.5-5.1) 02/12/24 04:14 BUN 8 mg/dL (7-18) 02/12/24 04:14 Creatinine 0.98 mg/dL (0.55-1.02) 02/12/24 04:14 Glucose 207 mg/dL (74-106) H 02/12/24 04:14 Phosphorus Cancelled 02/12/24 07:00 Magnesium 1.9 mg/dL (1.6-2.4) 02/11/24 07:20 Total Bilirubin 1.0 mg/dL (0.2-1.0) 02/10/24 04:52 AST 18 U/L (15-37) 02/10/24 04:52 ALT 24 U/L (13-56) 02/10/24 04:52 Alkaline Phosphatase 64 U/L (45-117) 02/10/24 04:52 Lipase 53 U/L (13-75) 02/10/24 04:52 Home Medications: Alendronate Sodium 70 mg PO EVERY 7TH DAY 02/06/24 Atorvastatin Calcium [Lipitor] 80 mg PO BEDTIME 02/06/24 Clopidogrel Bisulfate [Plavix] 75 mg PO DAILY 02/06/24 Gabapentin 800 mg PO TID 02/06/24 Hydrocodone Bit/Acetaminophen [Waller 10-325 Tablet] 1 tab PO Q6H PRN 02/06/24 Metformin HCl 1,000 mg PO TID 02/06/24 Montelukast Sodium 10 mg PO BEDTIME 02/06/24 Pioglitazone [Actos*] 15 mg PO DAILY 02/06/24 Semaglutide [Ozempic] 1 mg SQ EVERY 7TH DAY 02/06/24 Aspirin [Aspirin EC 81 MG] 81 mg PO DAILY 02/09/24 Amlodipine [Norvasc*] 5 mg PO BEDTIME #30 tab 02/12/24 Docusate [Colace Cap*] 100 mg PO BID #30 cap 02/12/24 Midodrine HCl 2.5 mg PO DAILY #30 tab 02/12/24 Sucralfate [Carafate*] 10 ml PO ACHS #420 ml 02/12/24 New Medications: Sucralfate [Carafate*] 10 ml PO ACHS #420 ml Docusate [Colace Cap*] 100 mg PO BID #30 cap Midodrine HCl 2.5 mg PO DAILY #30 tab Amlodipine [Norvasc*] 5 mg PO BEDTIME #30 tab Diet: ADA Activity: Fall precautions Followup: Atul Hernandez MD [ACTIVE - CAN ADMIT] - 1-2 Weeks Keara Aponte FNP [Primary Care Provider] - 1-2 Weeks Time spent managing pt's care (in minutes): 37
[2024-02-12 10:00] VITALS: BP 148/71
[2024-02-12 10:34] VITALS: TEMP 98
== END 2024-02-12 12:43 | disposition home or self-care (01) | DRG 392 ==
LOC: ER 13:55 → ERHOLD 19:21 → 2ND 02-06 08:01 → OBSVTOIN 02-06 16:24
PROVIDERS: ADMIT Internal Medicine; ATTEND Internal Medicine
PROC: 0DB68ZX Excision of Stomach, Via Natural or Artificial Opening Endoscopic, Diagnostic (ICD-10-PCS; principal; 2024-02-10 14:30)
DX: K59.00 Constipation, unspecified (principal); K56.7 Ileus, unspecified; K29.50 Unspecified chronic gastritis without bleeding; I95.1 Orthostatic hypotension; I10 Essential (primary) hypertension; D73.4 Cyst of spleen; E78.5 Hyperlipidemia, unspecified; N28.1 Cyst of kidney, acquired; D25.9 Leiomyoma of uterus, unspecified; M19.90 Unspecified osteoarthritis, unspecified site; E11.40 Type 2 diabetes mellitus with diabetic neuropathy, unspecified; G89.29 Other chronic pain; M54.9 Dorsalgia, unspecified; Z79.82 Long term (current) use of aspirin; Z11.52 Encounter for screening for COVID-19; Z79.02 Long term (current) use of antithrombotics/antiplatelets; Z90.49 Acquired absence of other specified parts of digestive tract; Z79.899 Other long term (current) drug therapy
CPT/HCPCS: 36415; 71045; 74177; 76770; 80048; 80053; 81001; 82947; 83690; 83735; 84100; 84145; 85025; 86140; 87804; 87811; 88305; 88312; 94760; 96361; 96374; 96375; 97112; 97161; 99285; G0378; J0360; J1170; J2001; J2405; J2470; J2550; J2704; J3475; J7030; Q9967

== ENCOUNTER 2025-02-14 15:16 | Emergency (ER) | payer MEDICARE, OTHER ==
[2025-02-14] MEDS ORDERED: ACETAMINOPHEN 500 MG TAB ONE (16:04)
--- NOTE | 2025-02-14 16:50 | RAD REPORT ---
EXAMINATION: Spine Lumbar Wo Con CLINICAL INDICATION: Female, 74 years old. PAIN TECHNIQUE: Axial CT images were obtained through the lumbar spine in soft tissue and bone windows wit hout intravenous contrast. Coronal and Sagittal reformatted images were created from the data set. One or more of the following dose reduction techniques were used: Automated exposure control, adjustm ent of the mA and/ or kV according to patient size, and/or iterative reconstruction. Unless otherwise specified, incidental findings do not require dedicated imaging follow-up. [id number]. COMPARISON: No prior exams FINDINGS: For purposes of this dictation, it is assumed that there are 5 non rib-bearing lumbar type vertebrae, and the most caudal fully segmented lumbar vertebra is labeled L5. ALIGNMENT: Grade 1 anterolisthesis of L4 and L5. BONES: No significant soft tissue abnormalities. No aggressive osseous lesions. DEGENERATIVE: Disc heights are fairly well-maintained. Facet degenerative changes are present at L4-5 and L5-S1 bilaterally that results in mild bilateral neural foraminal narrowing. SOFT TISSUE: No obstructive stones bilaterally. Aortic atherosclerosis. IMPRESSION: No acute lumbar spine abnormalities.
--- NOTE | 2025-02-14 16:52 | RAD REPORT ---
EXAMINATION: Pelvis Wo Cont CLINICAL INDICATION: Female, 74 years old. PAIN TECHNIQUE: CT pelvis was performed, without IV contrast, as per department protocol. Axial, sagittal and coronal reconstructions were obtained. One or more of the following dose reduction techniques were used: Automated exposure control, adjustment of the mA and/or kV according to patient size, and/ or iterative reconstruction. Unless otherwise specified, incidental findings do not require dedicated imaging follow-up. [id number]. IV CONTRAST: Not administered. COMPARISON: No prior exam. FINDINGS: SMALL BOWEL/COLON: Small bowel has normal course and caliber. No colonic wall thickening or pericolon ic inflammatory changes. LYMPH NODES: No lymphadenopathy. ABDOMINAL AORTA AND OTHER VESSELS: Normal caliber aorta and IVC. PERITONEUM: No abnormal free fluid. No free air. ABDOMINAL WALL: No significant abnormality. REPRODUCTIVE ORGANS: Calcified uterine fibroids. URINARY BLADDER: Underdistended but grossly unremarkable. MUSCULOSKELETAL: No acute or suspicious osseous abnormality. ADDITIONAL FINDINGS: None. IMPRESSION: No pelvic fracture.
--- NOTE | 2025-02-14 17:15 | RAD REPORT ---
EXAMINATION: Shoulder Right 2+ Views CLINICAL INDICATION: Female, 74 years old. PAIN RIGHT COMPARISON: No prior exam. FINDINGS: No acute fracture. No malalignment/dislocation. Mild right AC joint degenerative changes with tiny subacromial spur. Other: n/a IMPRESSION: No acute osseous abnormality.
--- NOTE | 2025-02-14 17:15 | RAD REPORT ---
EXAMINATION: Ankle Right 3 View CLINICAL INDICATION: Female, 74 years old. PAIN COMPARISON: No prior exam. FINDINGS: No acute fracture. No malalignment/dislocation. No significant focal degenerative change. Other: n/a IMPRESSION: No acute osseous abnormality.
--- NOTE | 2025-02-14 17:36 | EDPHYS ---
Physician Documentation [facility] Name: Yadira Land Age: 74 yrs Sex: Female : 1950 Arrival Date: 02/14/2025 Time: 15:16 Bed 20 Private MD: ED Physician Ramin Easton HPI: 02/14 15:55 This 74 yrs old Female presents to ER via Ambulatory with complaints of Ankle cp Injury, Arm Pain. 15:55 The patient presents with an injury, pain, that is acute. The complaints affect the cp right ankle. 15:55 Onset: The symptoms/episode began/occurred just prior to arrival. Context: Patient cp reports injuring ankle while walking to mailbox today. Did not fall but reports low back and right hip pain, right shoulder pain. Associated signs and symptoms: Pertinent negatives: fever, numbness, weakness, chest pain, abdominal pain. Severity of symptoms: in the emergency department the symptoms are unchanged, despite home interventions. Historical: - Allergies: 15:55 No Known Allergies; jl7 - PMHx: 15:55 Diabetes - NIDDM; Hypertension; RA; jl7 - PSHx: 15:55 Appendectomy; Cholecystectomy; knees; jl7 - Immunization history:: Adult Immunizations unknown. - Infectious Disease History:: Denies. - Social history:: Smoking status: Patient denies any tobacco usage or history of. ROS: 16:00 Constitutional: Negative for body aches, chills, fever, poor PO intake, cp 16:00 Eyes: Negative for injury, pain, redness, and discharge, cp 16:00 ENT: Negative for drainage from ear(s), ear pain, sore throat, difficulty swallowing, difficulty handling secretions, 16:00 Cardiovascular: Negative for chest pain, edema, palpitations, 16:00 Respiratory: Negative for cough, shortness of breath, wheezing, 16:00 Abdomen/GI: Negative for abdominal pain, vomiting, diarrhea, constipation, anorexia, 16:00 Back: Positive for pain at rest, pain with movement, of the back and right hip, 16:00 MS/extremity: Positive for pain, of the right shoulder and right ankle, Negative for decreased range of motion, deformity, paresthesias, 16:00 Neuro: Negative for altered mental status, dizziness, loss of consciousness, syncope, near syncope, weakness, 16:00 All other systems are negative, Exam: 16:05 Constitutional: The patient appears in no acute distress, alert, awake, non-toxic, well cp developed, well nourished, uncomfortable, 16:05 Head/Face: Normocephalic, atraumatic. cp 16:05 Eyes: Periorbital structures: appear normal, Conjunctiva: normal, Sclera: no appreciated abnormality, Lids and lashes: appear normal, bilaterally, 16:05 ENT: External ear(s): are unremarkable, Nose: is normal, Mouth: Lips: moist, Oral mucosa: moist, Posterior pharynx: Airway: no evidence of obstruction, patent, 16:05 Neck: ROM/movement: is normal, is supple, without pain, no range of motions limitations, 16:05 Chest/axilla: Inspection: normal, Palpation: is normal, no crepitus, no tenderness, 16:05 Cardiovascular: Rate: normal, Rhythm: regular, Edema: is not appreciated, JVD: is not appreciated, 16:05 Respiratory: the patient does not display signs of respiratory distress, Respirations: normal, no use of accessory muscles, no retractions, labored breathing, is not present, Breath sounds: are clear throughout, no decreased breath sounds, no stridor, no wheezing, 16:05 Abdomen/GI: Inspection: abdomen appears normal, Palpation: abdomen is soft and non-tender, in all quadrants, 16:05 Back: pain, that is moderate, of the lumbar area and right low back, ROM is painful, with all movement, 16:05 Musculoskeletal/extremity: Extremities: noted in the right shoulder: pain, tenderness, There is no evidence of decreased ROM, deformity, noted in the right hip: pain, tenderness, no evidence of decreased ROM, deformity, noted in the right ankle: pain, tenderness, lateral malleolus swelling that is mild, no evidence of decreased ROM, deformity, 16:05 Neuro: Orientation: to person, place \T\ time. Mentation: is normal, Vital Signs: 15:54 BP 109 / 75; Pulse 90; Resp 17; Temp 97; Pulse Ox 95% ; Weight 65.77 kg; Height 5 ft. 4 jl7 in. ; Pain 8/10; 16:00 BP 109 / 63; Pulse 85; Resp 15; Pulse Ox 100% ; me1 17:00 BP 109 / 75; Pulse 92; Resp 16; Pulse Ox 99% ; me1 18:00 BP 109 / 87; Pulse 96; Resp 15; Temp 98.4; Pulse Ox 97% ; me1 15:54 Body Mass Index 24.89 (65.77 kg, 162.56 cm) jl7 15:54 Pain Scale: Adult jl7 MDM: 15:46 Medical Screening Exam initiated cp 17:35 Data reviewed: vital signs, nurses notes, radiologic studies, CT scan, plain films. cp 17:35 Differential diagnosis: fracture, sprain, dislocation. I considered the following cp discharge prescriptions or medication management in the emergency department Medications were administered in the Emergency Department. See MAR. Independent interpretation of the following test(s) in the Emergency Department X-Ray: My interpretation is images of right shoulder negative for fracture/dislocation, xrays of right ankle negative for fracture/dislocation. Counseling: I had a detailed discussion with the patient and/or guardian regarding the historical points, exam findings, and any diagnostic results supporting the discharge/admit diagnosis, radiology results, the need for outpatient follow up, a family practitioner, to return to the emergency department if symptoms worsen or persist or if there are any questions or concerns that arise at home. Response to treatment: the patient's symptoms have mildly improved after treatment, and as a result, I will discharge patient. 02/14 15:54 Order name: XRAY Ankle RIGHT 3 view cp 02/14 15:54 Order name: XRAY Shoulder RIGHT 2 view cp 02/14 15:54 Order name: CT Pelvis wo Cont cp 02/14 15:54 Order name: CT Lumbar Spine Wo Con cp 02/14 17:32 Order name: Aircast Ankle Splint; Complete Time: 18:04 cp 02/14 17:32 Order name: Sling; Complete Time: 18:04 cp Administered Medications: 16:08 Drug: Acetaminophen PO 1000 mg PO once Route: PO; oh1 16:52 Follow up: Response: No adverse reaction; Pain is decreased me1 Disposition: 02/15 07:02 Co-signature as Attending Physician, Ramin Easton MD I reviewed the patient's care rn provided by the Advanced Practice Provider and agree with the diagnosis and treatment plan. Disposition Summary: 02/14/25 17:36 Discharge Ordered Notes: Location: Home cp Problem: new cp Symptoms: have improved cp Condition: Stable cp Diagnosis - Pain in right shoulder cp - Sprain of ankle - right cp - Low back pain cp Followup: cp - With: Camden Chamorro MD - When: 5 - 6 days - Reason: shoulder and ankle pain Discharge Instructions: - Discharge Summary Sheet cp - Ankle Sprain cp - Acute Back Pain, Adult cp - Shoulder Pain cp - Shoulder Range of Motion Exercises cp - Heat Therapy cp - Back Exercises cp Forms: - Medication Reconciliation Form cp - Antibiotic Education cp - Prescription Opioid Use cp - Patient Portal Instructions cp - Leadership Thank You Letter cp Signatures: Dispatcher [employer] Ramin Mckeon MD MD rn Jorge Marcus, PA-C PA-C Clayton Resendiz RN RN jl7 Lilian Barker RN RN me1
--- NOTE | 2025-02-14 17:36 | ER ---
Nurse's Notes [facility] Name: Yadira Land Age: 74 yrs Sex: Female : 1950 Arrival Date: 02/14/2025 Time: 15:16 Bed 20 Private MD: Diagnosis: Pain in right shoulder;Sprain of ankle-right;Low back pain Presentation: 02/14 15:54 Chief complaint: Patient states: Twisted right ankle, reports pain to right ankle and jl7 right side/back. Coronavirus screen: At this time, the client does not indicate any symptoms associated with coronavirus-19. Ebola Screen: No symptoms or risks identified at this time. Initial Sepsis Screen: Does the patient meet any 2 criteria? No. Patient's initial sepsis screen is negative. Does the patient have a suspected source of infection? No. Patient's initial sepsis screen is negative. Risk Assessment: Do you want to hurt yourself or someone else? Patient reports no desire to harm self or others. Onset of symptoms was February 14, 2025. 15:54 Method Of Arrival: Ambulatory jl7 15:54 Acuity: KARSTEN 4 jl7 Triage Assessment: 15:55 General: Appears in no apparent distress. uncomfortable, Behavior is calm, cooperative, jl7 appropriate for age. Pain: Complains of pain in right ankle. Musculoskeletal: Swelling present in right ankle. Historical: - Allergies: 15:55 No Known Allergies; jl7 - PMHx: 15:55 Diabetes - NIDDM; Hypertension; RA; jl7 - PSHx: 15:55 Appendectomy; Cholecystectomy; knees; jl7 - Immunization history:: Adult Immunizations unknown. - Infectious Disease History:: Denies. - Social history:: Smoking status: Patient denies any tobacco usage or history of. Screenin:00 [facility] ED Fall Risk Assessment (Adult) History of falling in the last 3 months, me1 including since admission No falls in past 3 months (0 pts) Confusion or Disorientation No (0 pts) Intoxicated or Sedated No (0 pts) Impaired Gait No (0 pts) Mobility Assist Device Used No (0 pt) Altered Elimination No (0 pt) Score/Fall Risk Level 0 - 2 = Low Risk Maintained a safe environment, Provided non-skid footwear, Hourly rounding (assess needs \T\ fall precautionary measures) done. Abuse screen: Denies threats or abuse. Nutritional screening: No deficits noted. Tuberculosis screening: No symptoms or risk factors identified. Assessment: 16:00 General: Appears uncomfortable, well groomed, well developed, well nourished, Behavior me1 is calm, cooperative, appropriate for age, Reports Twisted right ankle, reports pain to right ankle and right side/back. Pain: Complains of pain in right flank and right leg and right ankle Pain does not radiate. Pain currently is 8 out of 10 on a pain scale. Quality of pain is described as aching, tight Pain began Is continuous. Neuro: Level of Consciousness is awake, alert, obeys commands, Oriented to person, place, time, situation, Appropriate for age. Cardiovascular: Patient's skin is warm and dry. Respiratory: Airway is patent Respiratory effort is even, unlabored, Respiratory pattern is regular, symmetrical. GI: No signs and/or symptoms were reported involving the gastrointestinal system. : No signs and/or symptoms were reported regarding the genitourinary system. EENT: No signs and/or symptoms were reported regarding the EENT system. Derm: Skin is intact, is healthy with good turgor, Skin is normal. Musculoskeletal: Circulation, motion, and sensation intact. Range of motion: intact in all extremities, Reports pain in right flank and right leg and right ankle. Injury Description: Twisted right ankle, reports pain to right ankle and right side/back. Vital Signs: 15:54 BP 109 / 75; Pulse 90; Resp 17; Temp 97; Pulse Ox 95% ; Weight 65.77 kg; Height 5 ft. 4 jl7 in. ; Pain 8/10; 16:00 BP 109 / 63; Pulse 85; Resp 15; Pulse Ox 100% ; me1 17:00 BP 109 / 75; Pulse 92; Resp 16; Pulse Ox 99% ; me1 18:00 BP 109 / 87; Pulse 96; Resp 15; Temp 98.4; Pulse Ox 97% ; me1 15:54 Body Mass Index 24.89 (65.77 kg, 162.56 cm) 7 15:54 Pain Scale: Adult [facility] ED Course: 15:20 Patient arrived in ED. mr 15:29 Jorge Marcus [facility]C [facility]. cp 15:29 Ramin Easton MD is Attending Physician. cp 15:55 Triage completed. jl7 15:55 Arm band placed on right wrist. jl7 16:00 Patient has correct armband on for positive identification. Bed in low position. Call me1 light in reach. Side rails up X2. Provided Education on: POC. Verbalized understanding.. Client placed on continuous cardiac and pulse oximetry monitoring. NIBP monitoring applied. Pulse ox on. NIBP on. 16:00 No provider procedures requiring assistance completed. me1 16:01 Clayton Cheung, RN is Primary Nurse. jl7 16:08 Lilian Barker, RN is Primary Nurse. me1 16:38 CT Pelvis wo Cont In Process Unspecified. EDMS 16:38 CT Lumbar Spine Wo Con In Process Unspecified. EDMS 17:00 XRAY Ankle RIGHT 3 view In Process Unspecified. EDMS 17:00 XRAY Shoulder RIGHT 2 view In Process Unspecified. EDMS 17:35 Camden Chamorro MD is Referral Physician. cp 18:15 Patient did not have IV access during this emergency room visit. me1 Administered Medications: 16:08 Drug: Acetaminophen PO 1000 mg PO once Route: PO; me1 16:52 Follow up: Response: No adverse reaction; Pain is decreased me1 Medication: 16:00 VIS not applicable for this client. me1 Outcome: 17:36 Discharge ordered by MD. cp 18:15 Discharged to home via wheelchair, with family, me1 18:15 Condition: stable 18:15 Discharge instructions given to patient, Instructed on discharge instructions, follow up and referral plans. Demonstrated understanding of instructions, follow-up care, 18:15 Patient left the ED. me1 Signatures: Dispatcher [employer] [facility] [employer], Reg Reg Jorge Denton, PA-C PA-C Clayton Resendiz, RN RN jl7 Lilian Barker, MAIKEL RN me1 Corrections: (The following items were deleted from the chart) 16:45 15:54 Chief complaint: Patient states: Twisted right ankle, reports pain to right ankle me1 and right side/back jl7
[2025-02-14 19:11] VITALS: BP 109/87; TEMP 98.4; O2SAT 97
== END 2025-02-14 18:15 | disposition home or self-care (01) ==
LOC: ER 15:16
DX: S93.401A Sprain of unspecified ligament of right ankle, initial encounter (principal); E11.9 Type 2 diabetes mellitus without complications; I10 Essential (primary) hypertension; M06.9 Rheumatoid arthritis, unspecified; M25.511 Pain in right shoulder; M25.551 Pain in right hip; M54.50 Low back pain, unspecified; X58.XXXA Exposure to other specified factors, initial encounter
CPT/HCPCS: 72131; 72192; 99283